=== PATIENT | male | born 1975 | race Caucasian/White ===

== ENCOUNTER 2016-12-23 14:37 | Emergency (ER) | payer MEDICARE, OTHER ==
[2016-12-23] MEDS ORDERED: CARBAMIDE PEROXIDE 6.5% DROPS 15 ML BTL BOTH EARS STA (15:50)
--- NOTE | 2016-12-23 16:01 | ED ---
ENT HPI - General Chief complaint: ENT Stated complaint: Congestion/ throat pain Time Seen by Provider: 12/23/16 15:23 Source: patient, RN notes reviewed Mode of arrival: ambulatory Limitations: no limitations - History of Present Illness Initial comments: This a 41-year-old male presents emergency department for congestion not feeling well. Patient states her last few days that is had some ear pressure, sinus congestion minimal cough. Patient states, aches all over and just generalized feels rundown. He states he did have some abdominal discomfort but no specific abdominal pain. Patient denies any nausea vomiting diarrhea constipation. Patient was feeling go to urgent care though her sugar was close. Patient states that he has a large amount of cerumen and would like his ears cleaned out. Patient has had a history of aspiration pneumonia. Patient denies fever, chills, neck stiffness. - Related Data Home Medications Medication Instructions Recorded Confirmed Atorvastatin [Lipitor] 40 mg PO DAILY 01/11/16 12/23/16 Famotidine [Pepcid] 20 mg PO DAILY 01/11/16 12/23/16 Ipratropium-Albuterol Nebulize 3 ml INHALATION RT-QID 09/12/16 12/23/16 [Duoneb 0.5 mg-3 mg/3 ml Soln] Previous Rx's Medication Instructions Recorded Oseltamivir [Tamiflu] 75 mg PO Q12HR #10 cap 12/23/16 Allergies Allergy/AdvReac Type Severity Reaction Status Date / Time No Known Allergies Allergy Verified 12/23/16 15:46 Review of Systems ROS Statement: Those systems with pertinent positive or pertinent negative responses have been documented in the HPI. ROS Other: All systems not noted in ROS Statement are negative. Past Medical History Past Medical History: Asthma, GERD/Reflux, Hyperlipidemia, Memory Impairment Additional Past Medical History / Comment(s): Down syndrome, chronic feet issues - family believe it is gout, SHARRI but pt unable to tolerate CPAP, History of Any Multi-Drug Resistant Organisms: None Reported Past Surgical History: Ear Surgery Additional Past Surgical History / Comment(s): Tubes in ears, eye sx-family believes due to weak muscles, cyst removed from back Past Anesthesia/Blood Transfusion Reactions: No Reported Reaction Past Psychological History: No Psychological Hx Reported Additional Psychological History / Comment(s): Pt resides with his mother who is his legal gaurdian and warehouse consultant. She helps him with his ADLs and manages his medications. Pt uses a walker or cane if his gout is flared up in his feet. Mother or his sister take him to appts. Sister states he has about a 2 yr old's mentality. Smoking Status: Never smoker Past Alcohol Use History: None Reported Past Drug Use History: None Reported - Past Family History Mother Family Medical History: GERD/Reflux Additional Family Medical History / Comment(s): Vivienne General Exam Limitations: no limitations General appearance: alert, in no apparent distress Head exam: Present: atraumatic, normocephalic, normal inspection Eye exam: Present: normal appearance, PERRL, EOMI. Absent: scleral icterus, conjunctival injection, periorbital swelling ENT exam: Present: normal exam, normal oropharynx, mucous membranes moist. Absent: TM's normal bilaterally (Unable to visualize TM secondary to cerumen impaction), normal external ear exam (cerumen impaction) Neck exam: Present: normal inspection, full ROM. Absent: tenderness, meningismus, lymphadenopathy Respiratory exam: Present: normal lung sounds bilaterally. Absent: respiratory distress, wheezes, rales, rhonchi, stridor Cardiovascular Exam: Present: regular rate, normal rhythm, normal heart sounds. Absent: systolic murmur, diastolic murmur, rubs, gallop, clicks GI/Abdominal exam: Present: soft, normal bowel sounds. Absent: distended, tenderness, guarding, rebound, rigid Skin exam: Present: warm, dry, intact, normal color. Absent: rash Course Vital Signs 12/23/16 12/23/16 14:44 16:09 Temperature 98.8 F Pulse Rate 60 Respiratory 18 16 Rate Blood Pressure 124/69 Medical Decision Making - Medical Decision Making 41-year-old male presented for generalized not feeling well congestion. Patient 's for minute sinus congestion, body aches. Patient says she's had minimal to no cough. Patient chest x-ray show improvement from prior. They state difficult to exclude infiltrate at this time though he has no cough and the room , auscultation is clear. Patient was started on Tamiflu for influenza. - Lab Data Lab Results 12/23/16 12/23/16 Range/Units 16:05 16:05 Influenza Type A RNA Not Detected (Not Detectd) Influenza Type B (PCR) Detected A (Not Detectd) Group A Strep Rapid Negative (Negative) Disposition Clinical Impression: Influenza Disposition: HOME SELF-CARE Condition: Stable Instructions: Influenza (ED) Additional Instructions: Please return to the Emergency Department if symptoms worsen or any other concerns. Prescriptions: Oseltamivir [Tamiflu] 75 mg PO Q12HR #10 cap Time of Disposition: 17:09
--- NOTE | 2016-12-23 16:26 | XR ---
EXAMINATION TYPE: XR chest 2V DATE OF EXAM: 12/23/2016 4:17 PM COMPARISON: 09/14/2016 HISTORY: Cough TECHNIQUE: Frontal and lateral views of the chest are obtained. FINDINGS: Sade Hilar density much improved from prior examination may reflect postinflammatory saucedo es. Developing infiltrate is difficult to exclude however. The cardiac silhouette size is within norm al limits. The osseous structures are intact. IMPRESSION: Sade Hilar density much improved from prior examination may reflect postinflammatory sabina nges. Developing infiltrate is difficult to exclude however.
[2016-12-23 17:18] VITALS: BP 131/65; PULSE 89; RESP 18; TEMP 97.8
== END 2016-12-23 17:17 | disposition home or self-care (01) ==
LOC: EC 14:37
DX: J11.1 Influenza due to unidentified influenza virus with other respiratory manifestations (principal); H57.8 Other specified disorders of eye and adnexa; Q90.9 Down syndrome, unspecified; K21.9 Gastro-esophageal reflux disease without esophagitis; E78.5 Hyperlipidemia, unspecified; H61.20 Impacted cerumen, unspecified ear; Z79.899 Other long term (current) drug therapy
CPT/HCPCS: 71020; 87081; 87430; 87502; 99283

== ENCOUNTER → 2018-09-05 | Outpatient (CLI) | payer MEDICARE, OTHER ==
--- NOTE | 2018-09-07 15:43 | ECHOF ---
Referral Reason:Q90.9 Down syndrome MEASUREMENTS -------- HEIGHT: 157.5 cm WEIGHT: 108.9 kg BP: RVIDd: 2.4 cm (< 3.3) IVSd: 1.1 cm (0.6 - 1.1) LVIDd: 4.3 cm (3.9 - 5.3) LVPWd: 1.0 cm (0.6 - 1.1) IVSs: 1.4 cm LVIDs: 2.8 cm LVPWs: 1.4 cm LAESV Index (A-L): 15.68 ml/m Ao Diam: 3.2 cm (2.0 - 3.7) AV Cusp: 2.0 cm (1.5 - 2.6) LA Diam: 3.5 cm (2.7 - 3.8) MV E Fritz: 1.09 m/s MV DecT: 221 ms MV A Fritz: 0.78 m/s MV E/A Ratio: 1.41 RAP: 5.00 mmHg RVSP: 15.32 mmHg FINDINGS -------- Sinus rhythm. This was a technically adequate study. The left ventricular size is normal. There is borderline concentric left ventricular hypertrophy. Overall left ventricular systolic function is normal with, an EF between 55 - 60 %. The right ventricle is normal in size and function. Normal LA size by volume 22+/-6 ml/m2. The right atrium is normal in size. There is mild aortic valve sclerosis. There is no evidence of aortic regurgitation. There is no e vidence of aortic stenosis. Mild mitral annular calcification present. There is trace to mild mitral regurgitation. Trace tricuspid regurgitation present. Right ventricular systolic pressure is normal at < 35 mmHg. There is no evidence of pulmonary hypertension. The pulmonic valve was not well visualized. The aortic root size is normal. Normal inferior vena cava with normal inspiratory collapse consistent with estimated right atrial pre ssure of 5 mmHg. There is no pericardial effusion. CONCLUSIONS -------- 1. Sinus rhythm. 2. This was a technically adequate study. 3. The left ventricular size is normal. 4. There is borderline concentric left ventricular hypertrophy. 5. Overall left ventricular systolic function is normal with, an EF between 55 - 60 %. 6. Normal LA size by volume 22+/-6 ml/m2. 7. There is mild aortic valve sclerosis. 8. Mild mitral annular calcification present. 9. There is trace to mild mitral regurgitation. 10. Trace tricuspid regurgitation present. 11. Right ventricular systolic pressure is normal at < 35 mmHg. 12. There is no evidence of pulmonary hypertension. 13. The pulmonic valve was not well visualized. 14. The aortic root size is normal. 15. There is no pericardial effusion. SUPERVISOR [employer]MICAL: Jose Guadalupe Anguiano RDCS
== END | disposition home or self-care (01) ==
LOC: RADECHMAIN 15:21
PROVIDERS: ATTEND Internal Medicine
DX: I34.0 Nonrheumatic mitral (valve) insufficiency (principal); I51.7 Cardiomegaly; I35.8 Other nonrheumatic aortic valve disorders; Q90.9 Down syndrome, unspecified
CPT/HCPCS: 93306

== ENCOUNTER 2018-12-09 11:22 | Emergency (ER) | payer MEDICARE, OTHER ==
[2018-12-09] MEDS ORDERED: IPRATROPIUM-ALBUTEROL 3 ML NEB INHALATION STA (11:46)
--- NOTE | 2018-12-09 12:08 | ED ---
General Adult HPI - General Chief complaint: Chest Pain Stated complaint: chest pain Time Seen by Provider: 12/09/18 11:31 Source: patient, RN notes reviewed Mode of arrival: wheelchair Limitations: no limitations - History of Present Illness Initial comments: Patient 43-year-old male presented to the emergency room today with a chief complaint cough congestion over the last 2 days. Patient does admit symptoms started with a sore throat. Patient does admit that he has had increased cough congestion with sputum production this morning that was yellow in color. Patient has a history of Down's and his mother said bedside providing some of this history. She states that he was holding his chest earlier. Patient does admit that it hurts when he coughs. Patient denies any chest pain at rest. Denies any other complaints or symptoms. Patient denies any recent fever, chills , shortness of breath, dysuria or hematuria, constipation or diarrhea, headaches or visual changes, or any other complaints. - Related Data Home Medications Medication Instructions Recorded Confirmed Atorvastatin [Lipitor] 40 mg PO DAILY 01/11/16 12/09/18 Famotidine [Pepcid] 20 mg PO DAILY 01/11/16 12/09/18 Previous Rx's Medication Instructions Recorded Azithromycin [Zithromax Z-pack] 0 mg PO DIRECTED #6 tab 12/09/18 predniSONE 40 mg PO DAILY 5 Days tab 12/09/18 Allergies Allergy/AdvReac Type Severity Reaction Status Date / Time No Known Allergies Allergy Verified 12/09/18 11:58 Review of Systems ROS Statement: Those systems with pertinent positive or pertinent negative responses have been documented in the HPI. ROS Other: All systems not noted in ROS Statement are negative. Past Medical History Past Medical History: Asthma, GERD/Reflux, Hyperlipidemia, Memory Impairment Additional Past Medical History / Comment(s): Down syndrome, chronic feet issues - family believe it is gout, SHARRI but pt unable to tolerate CPAP, History of Any Multi-Drug Resistant Organisms: None Reported Past Surgical History: Ear Surgery Additional Past Surgical History / Comment(s): Tubes in ears, eye sx-family believes due to weak muscles, cyst removed from back Past Anesthesia/Blood Transfusion Reactions: No Reported Reaction Past Psychological History: No Psychological Hx Reported Smoking Status: Never smoker Past Alcohol Use History: None Reported Past Drug Use History: None Reported - Past Family History Mother Family Medical History: GERD/Reflux Additional Family Medical History / Comment(s): Vivienne General Exam - General Exam Comments Initial Comments: General: The patient is awake and alert, in no distress, and does not appear acutely ill. Eye: There is normal conjunctiva bilaterally. No signs of icterus. Ears, nose, mouth and throat: There are moist mucous membranes and no oral lesions. Neck: The neck is supple Cardiovascular: There is a regular rate and rhythm. No murmur, rub or gallop is appreciated. Respiratory: Lungs are clear to auscultation, respirations are non-labored, breath sounds are equal. No wheezes, stridor, rales, or rhonchi. Gastrointestinal: There is no rebound or guarding present. No CVA tenderness. Bowel sounds are unremarkable. Musculoskeletal: Normal ROM, no tenderness. Neurological: A&O x 3. CN II-XII intact, There are no obvious motor or sensory deficits. Coordination appears grossly intact. Speech is normal. Skin: Skin is warm and dry and no rashes or lesions are noted. Psychiatric: Cooperative, appropriate mood & affect, normal judgment. Limitations: no limitations Course Vital Signs 12/09/18 12/09/18 12/09/18 11:25 12:06 12:13 Temperature 98.2 F Pulse Rate 72 72 72 Respiratory 16 Rate Blood Pressure 130/78 O2 Sat by Pulse 91 L Oximetry Medical Decision Making - Medical Decision Making EKG performed at 1221: Shows normal sinus rhythm at 75 bpm. MT interval 148. QRS 98. QT/QTC 338/433. No acute ST changes. Chest x-ray shows cardiac Martha present currently with suspected mild central vascular congestion. Mild interstitial edema is felt present. Correlate for CHF exacerbation. Patchy bibasilar patient favors atelectasis. As read by Dr. pan Patient admits to chest pain when he coughs. Symptoms started with a sore throat has had cough congestion with positive sputum pressure over the last 2 days. Patient has history of Down's syndrome. Labs were obtained. Cardiac enzymes negative. D-dimer negative. Patient's BNP was 19. Patient admits to improvement after breathing treatment. Does have history of asthma. Has inhaler at home. Will be started on steroids, antibiotics cover for bronchitis. Advised following the family doctor over the next 2 days. - Lab Data Result diagrams: 12/09/18 12:15 12/09/18 12:15 Lab Results 12/09/18 12/09/18 12/09/18 Range/Units 12:15 12:15 12:15 WBC 8.2 (3.8-10.6) k/uL RBC 4.94 (4.30-5.90) m/uL Hgb 16.1 (13.0-17.5) gm/dL Hct 49.1 (39.0-53.0) % MCV 99.4 (80.0-100.0) fL MCH 32.6 (25.0-35.0) pg MCHC 32.8 (31.0-37.0) g/dL RDW 14.4 (11.5-15.5) % Plt Count 213 (150-450) k/uL Neutrophils % 68 % Lymphocytes % 23 % Monocytes % 5 % Eosinophils % 1 % Basophils % 1 % Neutrophils # 5.5 (1.3-7.7) k/uL Lymphocytes # 1.9 (1.0-4.8) k/uL Monocytes # 0.4 (0-1.0) k/uL Eosinophils # 0.1 (0-0.7) k/uL Basophils # 0.1 (0-0.2) k/uL Macrocytosis Slight PT 10.2 (9.0-12.0) sec INR 0.9 (<1.2) APTT 24.4 (22.0-30.0) sec D-Dimer 0.35 (<0.60) mg/L FEU Sodium 140 (137-145) mmol/L Potassium 4.6 (3.5-5.1) mmol/L Chloride 105 (98-107) mmol/L Carbon Dioxide 28 (22-30) mmol/L Anion Gap 7 mmol/L BUN 20 (9-20) mg/dL Creatinine 0.62 L (0.66-1.25) mg/dL Est GFR (CKD-EPI)AfAm >90 (>60 ml/min/1.73 sqM) Est GFR (CKD-EPI)NonAf >90 (>60 ml/min/1.73 sqM) Glucose 117 H (74-99) mg/dL Calcium 9.2 (8.4-10.2) mg/dL Total Bilirubin 0.5 (0.2-1.3) mg/dL AST 20 (17-59) U/L ALT 28 (21-72) U/L Alkaline Phosphatase 63 (38-126) U/L Total Creatine Kinase (55-170) U/L CK-MB (CK-2) (0.0-2.4) ng/mL CK-MB (CK-2) Rel Index Troponin I (0.000-0.034) ng/mL NT-Pro-B Natriuret Pep pg/mL Total Protein 7.6 (6.3-8.2) g/dL Albumin 3.9 (3.5-5.0) g/dL Influenza Type A RNA (Not Detectd) Influenza Type B (PCR) (Not Detectd) Group A Strep Rapid (Negative) 12/09/18 12/09/18 12/09/18 Range/Units 12:15 12:15 12:15 WBC (3.8-10.6) k/uL RBC (4.30-5.90) m/uL Hgb (13.0-17.5) gm/dL Hct (39.0-53.0) % MCV (80.0-100.0) fL MCH (25.0-35.0) pg MCHC (31.0-37.0) g/dL RDW (11.5-15.5) % Plt Count (150-450) k/uL Neutrophils % % Lymphocytes % % Monocytes % % Eosinophils % % Basophils % % Neutrophils # (1.3-7.7) k/uL Lymphocytes # (1.0-4.8) k/uL Monocytes # (0-1.0) k/uL Eosinophils # (0-0.7) k/uL Basophils # (0-0.2) k/uL Macrocytosis PT (9.0-12.0) sec INR (<1.2) APTT (22.0-30.0) sec D-Dimer (<0.60) mg/L FEU Sodium (137-145) mmol/L Potassium (3.5-5.1) mmol/L Chloride (98-107) mmol/L Carbon Dioxide (22-30) mmol/L Anion Gap mmol/L BUN (9-20) mg/dL Creatinine (0.66-1.25) mg/dL Est GFR (CKD-EPI)AfAm (>60 ml/min/1.73 sqM) Est GFR (CKD-EPI)NonAf (>60 ml/min/1.73 sqM) Glucose (74-99) mg/dL Calcium (8.4-10.2) mg/dL Total Bilirubin (0.2-1.3) mg/dL AST (17-59) U/L ALT (21-72) U/L Alkaline Phosphatase (38-126) U/L Total Creatine Kinase 34 L (55-170) U/L CK-MB (CK-2) 0.3 (0.0-2.4) ng/mL CK-MB (CK-2) Rel Index 0.9 Troponin I <0.012 (0.000-0.034) ng/mL NT-Pro-B Natriuret Pep pg/mL Total Protein (6.3-8.2) g/dL Albumin (3.5-5.0) g/dL Influenza Type A RNA Not Detected (Not Detectd) Influenza Type B (PCR) Not Detected (Not Detectd) Group A Strep Rapid Negative (Negative) 12/09/18 Range/Units 12:15 WBC (3.8-10.6) k/uL RBC (4.30-5.90) m/uL Hgb (13.0-17.5) gm/dL Hct (39.0-53.0) % MCV (80.0-100.0) fL MCH (25.0-35.0) pg MCHC (31.0-37.0) g/dL RDW (11.5-15.5) % Plt Count (150-450) k/uL Neutrophils % % Lymphocytes % % Monocytes % % Eosinophils % % Basophils % % Neutrophils # (1.3-7.7) k/uL Lymphocytes # (1.0-4.8) k/uL Monocytes # (0-1.0) k/uL Eosinophils # (0-0.7) k/uL Basophils # (0-0.2) k/uL Macrocytosis PT (9.0-12.0) sec INR (<1.2) APTT (22.0-30.0) sec D-Dimer (<0.60) mg/L FEU Sodium (137-145) mmol/L Potassium (3.5-5.1) mmol/L Chloride (98-107) mmol/L Carbon Dioxide (22-30) mmol/L Anion Gap mmol/L BUN (9-20) mg/dL Creatinine (0.66-1.25) mg/dL Est GFR (CKD-EPI)AfAm (>60 ml/min/1.73 sqM) Est GFR (CKD-EPI)NonAf (>60 ml/min/1.73 sqM) Glucose (74-99) mg/dL Calcium (8.4-10.2) mg/dL Total Bilirubin (0.2-1.3) mg/dL AST (17-59) U/L ALT (21-72) U/L Alkaline Phosphatase (38-126) U/L Total Creatine Kinase (55-170) U/L CK-MB (CK-2) (0.0-2.4) ng/mL CK-MB (CK-2) Rel Index Troponin I (0.000-0.034) ng/mL NT-Pro-B Natriuret Pep 19 pg/mL Total Protein (6.3-8.2) g/dL Albumin (3.5-5.0) g/dL Influenza Type A RNA (Not Detectd) Influenza Type B (PCR) (Not Detectd) Group A Strep Rapid (Negative) Disposition Clinical Impression: Acute bronchitis Disposition: HOME SELF-CARE Condition: Good Instructions (If sedation given, give patient instructions): Acute Bronchitis ( ED) Additional Instructions: Please use medication as discussed. Please follow-up with family doctor in the next 2 days of symptoms have not improved. Please return to emergency room if the symptoms increase or worsen or for any other concerns. Prescriptions: Azithromycin [Zithromax Z-pack] 0 mg PO DIRECTED #6 tab predniSONE 40 mg PO DAILY 5 Days tab Is patient prescribed a controlled substance at d/c from ED?: No Referrals: Katelyn Quintanilla MD [Primary Care Provider] - 1-2 days Time of Disposition: 14:10
[2018-12-09 12:47] LABS: Basophils # (A) 0.1 k/uL (0-0.2); Basophils % (A) 1 %; Eosinophils # (A) 0.1 k/uL (0-0.7); Eosinophils % (A) 1 %; HCT 49.1 % (39.0-53.0); HGB 16.1 gm/dL (13.0-17.5); Lymphocytes # (A) 1.9 k/uL (1.0-4.8); Lymphocytes % (A) 23 %; MCH 32.6 pg (25.0-35.0); MCHC 32.8 g/dL (31.0-37.0); MCV 99.4 fL (80.0-100.0); Macrocytosis Slight; Mean Platelet Volume 7.6; Monocytes # (A) 0.4 k/uL (0-1.0); Monocytes % (A) 5 %; Neutrophils # (A) 5.5 k/uL (1.3-7.7); Neutrophils % (A) 68 %; Platelet Count 213 k/uL (150-450); RBC 4.94 m/uL (4.30-5.90); RDW 14.4 % (11.5-15.5); WBC 8.2 k/uL (3.8-10.6)
[2018-12-09 12:57] LABS: ALT 28 U/L (21-72); AST 20 U/L (17-59); Albumin 3.9 g/dL (3.5-5.0); Alkaline Phosphatase 63 U/L (38-126); Anion Gap 7 mmol/L; Blood Urea Nitrogen 20 mg/dL (9-20); Calcium 9.2 mg/dL (8.4-10.2); Carbon Dioxide 28 mmol/L (22-30); Chloride 105 mmol/L (98-107); Glucose 117 mg/dL (74-99); Potassium 4.6 mmol/L (3.5-5.1); Sodium 140 mmol/L (137-145); Total Bilirubin 0.5 mg/dL (0.2-1.3); Total Protein 7.6 g/dL (6.3-8.2)
[2018-12-09 12:58] LABS: D-Dimer 0.35 mg/L FEU (<0.60); INR 0.9 (<1.2); Partial Thromboplastin Time 24.4 sec (22.0-30.0); Prothrombin Time 10.2 sec (9.0-12.0)
--- NOTE | 2018-12-09 13:05 | XR ---
EXAMINATION TYPE: XR chest 2V DATE OF EXAM: 12/09/2018 COMPARISON: CTA chest September 12, 2016. Most recent chest x-ray September 12, 2018 HISTORY: Cough and fever. TECHNIQUE: Frontal and lateral views of the chest are obtained. FINDINGS: The osseous structures are intact. Cardiomegaly is now identified. Suspect mild central vas cular congestion. Bibasilar opacities are now present. No pleural effusion or pneumothorax is seen bi laterally. IMPRESSION: Cardiomegaly present currently with suspected mild central vascular congestion. Mild int erstitial edema is felt present. Correlate for CHF exacerbation. Patchy bibasilar opacity favors atel ectasis.
[2018-12-09 13:20] LABS: Creatine Kinase 34 U/L (55-170)
[2018-12-09 13:33] LABS: Creatine Kinase MB 0.3 ng/mL (0.0-2.4); Troponin I <0.012 ng/mL (0.000-0.034)
[2018-12-09 15:02] VITALS: BP 129/80; PULSE 75; RESP 18; TEMP 98
== END 2018-12-09 15:00 | disposition home or self-care (01) ==
LOC: EC 11:22
DX: J20.9 Acute bronchitis, unspecified (principal); K21.9 Gastro-esophageal reflux disease without esophagitis; E78.5 Hyperlipidemia, unspecified; G47.33 Obstructive sleep apnea (adult) (pediatric); Z79.899 Other long term (current) drug therapy; Z87.09 Personal history of other diseases of the respiratory system
CPT/HCPCS: 36415; 71046; 80053; 82550; 82553; 83880; 84484; 85025; 85379; 85610; 85730; 87081; 87430; 87502; 93005; 94640; 99285

== ENCOUNTER 2019-02-20 20:40 | Emergency (ER) | payer MEDICARE, OTHER ==
[2019-02-20 20:53] VITALS: BP 138/77; PULSE 72; RESP 20; TEMP 98.5
--- NOTE | 2019-02-20 21:38 | XR ---
EXAMINATION TYPE: XR hand complete RT DATE OF EXAM: 02/20/2019 COMPARISON: NONE HISTORY: Pain TECHNIQUE: 3 views FINDINGS: Metacarpals appear intact. I see no fracture nor dislocation. Joint spaces are fairly olga lidia l. There is some spurring at the DIP joints. IMPRESSION: No acute abnormality of the right hand.
[2019-02-20] MEDS ORDERED: ACETAMINOPHEN TAB 325 MG TAB PO STA (21:39)
--- NOTE | 2019-02-20 21:40 | XR ---
EXAMINATION TYPE: XR elbow complete RT DATE OF EXAM: 02/20/2019 COMPARISON: NONE HISTORY: Elbow pain TECHNIQUE: 3 views FINDINGS: On the lateral view there is probably a nondisplaced intra-articular fracture of the radial head. There is probably a 8 mm anterior chip fracture. IMPRESSION: Nondisplaced radial head fracture.
--- NOTE | 2019-02-20 21:43 | XR ---
EXAMINATION TYPE: XR forearm RT DATE OF EXAM: 02/20/2019 COMPARISON: NONE HISTORY: Pain TECHNIQUE: 2 views FINDINGS: Radius and ulna appear intact. I see no fracture. Wrist joint and elbow joint appear intact . IMPRESSION: Negative right forearm exam.
--- NOTE | 2019-02-20 21:45 | XR ---
EXAMINATION TYPE: XR foot complete RT DATE OF EXAM: 02/20/2019 COMPARISON: NONE HISTORY: Foot pain TECHNIQUE: 4 views FINDINGS: There is severe narrowing of the first MP joint space with spurring. Metatarsals are intact . There is small plantar and Achilles calcaneal spurring. I see no fracture. 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 No fracture seen. Calcaneal spurring.
--- NOTE | 2019-02-20 22:33 | ED ---
General Adult HPI - General Chief complaint: Extremity Injury, Upper Stated complaint: Fall, arm pain Time Seen by Provider: 02/20/19 20:58 Source: patient, family, RN notes reviewed, old records reviewed Mode of arrival: ambulatory Limitations: no limitations - History of Present Illness Initial comments: 43-year-old male patient with past mental history of pneumonia presents to ED after sustaining a fall today. Basically he is walking forward, tripped over a rug, fell for catching himself with his right arm. Patient has a trauma to head or neck. Patient denies any loss of consciousness. Patient primary complaint is right elbow pain. Patient has secondary complaint of right foot pain. Patient denies any other complaints. Systemic: Pt denies fatigue, myalgia, fever/chills, rash. Pt denies weakness, night sweats, weight loss. Neuro: Pt denies headache, visual disturbances, syncope or pre-syncope. HEENT: Pt denies ocular discharge or irritation, otalgia, rhinorrhea, pharyngitis or notable lymphadenopathy. Cardiopulmonary: Pt denies chest pain, SOB, heart palpitations, dyspnea on exertion. Abdominal/GI: Pt denies abdominal pain, n/v/d. : Pt denies dysuria, burning w/ urination, frequency/urgency. Denies new onset urinary or bowel incontinence. MSK: Pt denies myalgia, loss of strength or function in extremities. Neuro: Pt denies new onset weakness, paresthesias. - Related Data Home Medications Medication Instructions Recorded Confirmed Atorvastatin [Lipitor] 40 mg PO DAILY 01/11/16 12/09/18 Famotidine [Pepcid] 20 mg PO DAILY 01/11/16 12/09/18 Previous Rx's Medication Instructions Recorded Azithromycin [Zithromax Z-pack] 0 mg PO DIRECTED #6 tab 12/09/18 predniSONE 40 mg PO DAILY 5 Days tab 12/09/18 Allergies Allergy/AdvReac Type Severity Reaction Status Date / Time No Known Allergies Allergy Verified 02/20/19 20:53 Review of Systems ROS Statement: Those systems with pertinent positive or pertinent negative responses have been documented in the HPI. ROS Other: All systems not noted in ROS Statement are negative. Past Medical History Past Medical History: Asthma, GERD/Reflux, Hyperlipidemia, Memory Impairment Additional Past Medical History / Comment(s): Down syndrome, chronic feet issues- family believe it is gout, SHARRI but pt unable to tolerate CPAP, History of Any Multi-Drug Resistant Organisms: None Reported Past Surgical History: Ear Surgery Additional Past Surgical History / Comment(s): Tubes in ears, eye sx-family believes due to weak muscles, cyst removed from back Past Anesthesia/Blood Transfusion Reactions: No Reported Reaction Past Psychological History: No Psychological Hx Reported Smoking Status: Never smoker Past Alcohol Use History: None Reported Past Drug Use History: None Reported - Past Family History Mother Family Medical History: GERD/Reflux Additional Family Medical History / Comment(s): Vivienne General Exam - General Exam Comments Initial Comments: Constitutional: NAD, AOX3, Pt has pleasant affect. HEENT: NC/AT, trachea midline, neck supple, no lymphadenopathy. Posterior pharynx non erythematous, without exudates. External ears appear normal, without discharge. Mucous membranes moist. Eyes PERRLA, EOM intact. There is no scleral icterus. No pallor noted. Cardiopulmonary: RRR, no murmurs, rubs or gallops, no JVD noted. Lungs CTAB in anterior and posterior colon. No peripheral edema. Abdominal exam: Abdomen soft and non-distended. Abdomen non-tender to palpation in all 4 quadrants. Bowel sounds active in LLQ. No hepatosplenomegaly. No ecch ymosis Neuro: CN II-XII intact. No nuchal rigidity. No cervical spinal tenderness. MSK: Right elbow mildly tender to palpation. Radial pulse +2. No forearm wrist or hand tenderness. No humeral tenderness. No other areas of upper extremity tenderness. Right great toe mildly tender to palpation. No other areas of tenderness. No posterior calf tenderness bilaterally, homans sign negative bila terally. Posterior tibialis and radial pulse +2 bilaterally. Sensation intact in upper and lower extremities. Full active ROM in upper and lower extremities, 5/5 stregnth. Limitations: no limitations Course Vital Signs 02/20/19 20:49 Temperature 98.5 F Pulse Rate 72 Respiratory 20 Rate Blood Pressure 138/77 O2 Sat by Pulse 97 Oximetry Medical Decision Making - Medical Decision Making 43-year-old male patient with past mental history of pneumonia presents to ED after sustaining a fall today. Basically he is walking forward, tripped over a rug, fell for catching himself with his right arm. Patient has a trauma to head or neck. Patient denies any loss of consciousness. Patient primary complaint is right elbow pain. Patient has secondary complaint of right foot pain. Patient denies any other complaints. Pt VSS, afebrile. Physical exam displayed: Right elbow mildly tender to palpation. Radial pulse +2. No forearm wrist or hand tenderness. No humeral tenderness. No other areas of upper extremity tenderness. Right great toe mildly tender to palpation. No other areas of tenderness. Further history taking revealed a great toe pain is a chronic complaint and nonacute. Plain film of hand, forearm, presents with acute pathology. Plain film of elbow displayed a nondisplaced vertical fracture and radial head and 8 mm anterior chip fracture. Patient placed in posterior 90 arm splint. Pt placed in sling. Patient to be discharged with follow up with orthopedic surgeon. Patient neurovascularly intact after splint placement. Disposition Clinical Impression: Radial head fracture Disposition: HOME SELF-CARE Condition: Stable Instructions (If sedation given, give patient instructions): Elbow Fracture (ED) Additional Instructions: Patient to adhere to previously discussed treatment plan and will take medication(s) as directed. Patient to follow up with PCP in 1-2 days. Patient to return to ED if symptoms do not improve. Please continue to wear splint. Please wear a sling. Please follow-up with orthopedic consult tomorrow. Return to ER if condition worsens in any way. Is patient prescribed a controlled substance at d/c from ED?: No Referrals: Katelyn Quintanilla MD [Primary Care Provider] - 1-2 days Nick Mariscal DO [Doctor of Osteopathic Medicine] - 1-2 days
== END 2019-02-20 23:21 | disposition home or self-care (01) ==
LOC: EC 20:40
DX: S52.124A Nondisplaced fracture of head of right radius, initial encounter for closed fracture (principal); M79.671 Pain in right foot; K21.9 Gastro-esophageal reflux disease without esophagitis; E78.5 Hyperlipidemia, unspecified; Z79.899 Other long term (current) drug therapy; W01.0XXA Fall on same level from slipping, tripping and stumbling without subsequent striking against object, initial encounter; Y92.009 Unspecified place in unspecified non-institutional (private) residence as the place of occurrence of the external cause
CPT/HCPCS: 29105; 99284

== ENCOUNTER 2021-02-02 09:18 | Emergency (ER) | payer MEDICARE, OTHER ==
[2021-02-02 09:40] VITALS: BP 121/73; PULSE 68; RESP 18; TEMP 97.9
--- NOTE | 2021-02-02 10:51 | ED ---
General Adult HPI - General Chief complaint: Recheck/Abnormal Lab/Rx Stated complaint: Covid exposure Time Seen by Provider: 02/02/21 09:57 Source: patient Mode of arrival: ambulatory Limitations: no limitations - History of Present Illness Initial comments: 45-year-old male presents to the emergency department with a chief complaint of Covid testing. Patient is present with his caregiver for Covid testing. Patient supposedly lives in a household where for other people tested positive. They're only here for Covid testing. Patient has no complaints. - Related Data Home Medications Medication Instructions Recorded Confirmed Atorvastatin [Lipitor] 40 mg PO DAILY 01/11/16 12/09/18 Famotidine [Pepcid] 20 mg PO DAILY 01/11/16 12/09/18 Previous Rx's Medication Instructions Recorded Azithromycin [Zithromax Z-pack (6 0 mg PO DIRECTED #6 tab 12/09/18 tabs)] predniSONE [Deltasone] 40 mg PO DAILY 5 Days tab 12/09/18 Allergies Allergy/AdvReac Type Severity Reaction Status Date / Time No Known Allergies Allergy Verified 02/02/21 09:37 Review of Systems ROS Statement: Those systems with pertinent positive or pertinent negative responses have been documented in the HPI. ROS Other: All systems not noted in ROS Statement are negative. Past Medical History Past Medical History: Asthma, GERD/Reflux, Hyperlipidemia, Memory Impairment Additional Past Medical History / Comment(s): Down syndrome, chronic feet issues- family believe it is gout, SHARRI but pt unable to tolerate CPAP, History of Any Multi-Drug Resistant Organisms: None Reported Past Surgical History: Ear Surgery Additional Past Surgical History / Comment(s): Tubes in ears, eye sx-family believes due to weak muscles, cyst removed from back Past Anesthesia/Blood Transfusion Reactions: No Reported Reaction Past Psychological History: No Psychological Hx Reported Smoking Status: Second hand smoke exposure Past Alcohol Use History: None Reported Past Drug Use History: None Reported - Past Family History Mother Family Medical History: GERD/Reflux Additional Family Medical History / Comment(s): Vivienne General Exam Limitations: no limitations General appearance: alert, in no apparent distress Head exam: Present: atraumatic, normocephalic, normal inspection Eye exam: Present: normal appearance, PERRL, EOMI Pupils: Present: normal accommodation ENT exam: Present: normal exam, normal oropharynx, mucous membranes moist Respiratory exam: Present: normal lung sounds bilaterally. Absent: respiratory distress Cardiovascular Exam: Present: regular rate, normal rhythm, normal heart sounds Extremities exam: Present: normal inspection, full ROM, normal capillary refill. Absent: tenderness Back exam: Present: normal inspection, full ROM. Absent: tenderness Neurological exam: Present: alert, normal gait Psychiatric exam: Present: normal affect, normal mood Skin exam: Present: warm, dry, intact, normal color Course Vital Signs 02/02/21 09:37 Temperature 97.9 F Pulse Rate 68 Respiratory 18 Rate Blood Pressure 121/73 O2 Sat by Pulse 93 L Oximetry Medical Decision Making - Medical Decision Making 45-year-old male presents to the emergency department with a chief complaint of Covid testing. He is Covid negative. No other complaints. Case discussed with physician. - Lab Data Lab Results 02/02/21 Range/Units 10:02 Coronavirus (PCR) Not Detected (Not Detectd) Disposition Clinical Impression: COVID-19 ruled out by laboratory testing Disposition: HOME SELF-CARE Condition: Stable Instructions (If sedation given, give patient instructions): Coronavirus Disease 2019 (COVID-19) Additional Instructions: Please return to the Emergency Department if symptoms worsen or any other concerns. Is patient prescribed a controlled substance at d/c from ED?: No Referrals: Katelyn Quintanilla MD [Primary Care Provider] - 1-2 days Time of Disposition: 11:17
== END 2021-02-02 11:27 | disposition home or self-care (01) ==
LOC: EC 09:18
DX: Z03.818 Encounter for observation for suspected exposure to other biological agents ruled out (principal); E78.5 Hyperlipidemia, unspecified; K21.9 Gastro-esophageal reflux disease without esophagitis; Z79.899 Other long term (current) drug therapy
CPT/HCPCS: 87635; 99283

== ENCOUNTER 2021-10-17 14:35 | Inpatient (IN) | payer MEDICARE, OTHER ==
[2021-10-17] MEDS ORDERED: DEXAMETHASONE SOD PHOSPHATE 10 MG/ML 1 ML VIAL IV STA (15:11)
--- NOTE | 2021-10-17 15:32 | ED ---
General Adult HPI - General Chief complaint: Shortness of Breath Stated complaint: DEANN Time Seen by Provider: 10/17/21 15:03 Source: family, EMS, RN notes reviewed, old records reviewed Mode of arrival: EMS Limitations: altered mental status - History of Present Illness Initial comments: 45-year-old male history of Down syndrome presenting with cough and dyspnea. History is limited, according to EMS the patient was quite hypoxic upon arrival. He was placed on nonrebreather. The patient has history of Down syndrome. He denies chest pain or abdominal pain. According to EMS the family had noted some increased lower extremity swelling. - Related Data Home Medications Medication Instructions Recorded Confirmed Atorvastatin [Lipitor] 40 mg PO DAILY 01/11/16 12/09/18 Famotidine [Pepcid] 20 mg PO DAILY 01/11/16 12/09/18 Previous Rx's Medication Instructions Recorded Azithromycin [Zithromax Z-pack (6 0 mg PO DIRECTED #6 tab 12/09/18 tabs)] predniSONE [Deltasone] 40 mg PO DAILY 5 Days tab 12/09/18 Allergies Allergy/AdvReac Type Severity Reaction Status Date / Time No Known Allergies Allergy Verified 08/14/21 16:52 Review of Systems ROS Statement: Those systems with pertinent positive or pertinent negative responses have been documented in the HPI. ROS Other: All systems not noted in ROS Statement are negative. Past Medical History Past Medical History: Asthma, GERD/Reflux, Hyperlipidemia, Memory Impairment Additional Past Medical History / Comment(s): Down syndrome, chronic feet i ssues- family believe it is gout, SHARRI but pt unable to tolerate CPAP, History of Any Multi-Drug Resistant Organisms: None Reported Past Surgical History: Ear Surgery Additional Past Surgical History / Comment(s): Tubes in ears, eye sx-family believes due to weak muscles, cyst removed from back Past Anesthesia/Blood Transfusion Reactions: No Reported Reaction Past Psychological History: No Psychological Hx Reported Smoking Status: Second hand smoke exposure Past Alcohol Use History: None Reported Past Drug Use History: None Reported - Past Family History Mother Family Medical History: GERD/Reflux Additional Family Medical History / Comment(s): Vivienne General Exam Limitations: altered mental status General appearance: alert, in distress Head exam: Present: atraumatic, normocephalic Eye exam: Present: normal appearance, PERRL ENT exam: Present: mucous membranes dry Neck exam: Present: normal inspection. Absent: tenderness, meningismus Respiratory exam: Present: respiratory distress, decreased breath sounds Cardiovascular Exam: Present: regular rate, normal rhythm GI/Abdominal exam: Present: soft. Absent: distended, tenderness, guarding Extremities exam: Present: normal capillary refill, pedal edema Neurological exam: Present: alert Skin exam: Present: warm, dry, intact Course Vital Signs 10/17/21 10/17/21 10/17/21 14:38 15:08 16:35 Temperature 98.6 F Pulse Rate 90 75 Respiratory 32 H 24 Rate Blood Pressure 150/104 143/81 O2 Sat by Pulse 93 L 91 L 93 L Oximetry 10/17/21 16:49 Temperature Pulse Rate 66 Respiratory 18 Rate Blood Pressure O2 Sat by Pulse 93 L Oximetry EKG Findings - EKG Comments: EKG Findings:: EKG: Normal sinus rhythm, rightward axis, rate of 81, NM interval 158, QRS duration 86, QTC [address] segment elevation Medical Decision Making - Medical Decision Making 45-year-old male history of Down syndrome presenting with dyspnea and hypoxia. Patient has had some upper respiratory symptoms according to his mother over the past several days. Additionally he does appear fluid overloaded chest x-ray shows CHF versus interstitial pneumonia. He also has a history of asthma. Patient's given dose Lasix in the emergency department as well as antibiotics to cover atypical pneumonia. Started on prednisone and inhaled albuterol. He will be admitted for further evaluation treatment. Echo will be obtained. I suspect since predominantly CHF. Dr. Smith is aware. - Lab Data Result diagrams: 10/17/21 Unknown 10/17/21 Unknown Lab Results 10/17/21 10/17/21 10/17/21 Range/Units Unknown Unknown Unknown WBC 6.9 (3.8-10.6) k/uL RBC 5.87 (4.30-5.90) m/uL Hgb 17.1 (13.0-17.5) gm/dL Hct 56.4 H (39.0-53.0) % MCV 96.1 (80.0-100.0) fL MCH 29.2 (25.0-35.0) pg MCHC 30.3 L (31.0-37.0) g/dL RDW 17.6 H (11.5-15.5) % MPV 11.2 Hypochromasia Marked Poikilocytosis Slight Anisocytosis Slight Macrocytosis Slight Sodium 134 L (137-145) mmol/L Potassium (3.5-5.1) mmol/L Chloride 98 (98-107) mmol/L Carbon Dioxide 29 (22-30) mmol/L Anion Gap 7 mmol/L BUN 16 (9-20) mg/dL Creatinine 0.65 L (0.66-1.25) mg/dL Est GFR (CKD-EPI)AfAm >90 (>60 ml/min/1.73 sqM) Est GFR (CKD-EPI)NonAf >90 (>60 ml/min/1.73 sqM) Glucose 101 H (74-99) mg/dL Plasma Lactic Acid David (0.7-2.0) mmol/L Calcium 8.1 L (8.4-10.2) mg/dL Magnesium 2.1 (1.6-2.3) mg/dL Total Bilirubin 1.4 H (0.2-1.3) mg/dL AST 93 H (17-59) U/L ALT 70 H (4-49) U/L Alkaline Phosphatase 126 (38-126) U/L Troponin I (0.000-0.034) ng/mL NT-Pro-B Natriuret Pep pg/mL Total Protein 7.9 (6.3-8.2) g/dL Albumin 3.7 (3.5-5.0) g/dL Coronavirus (PCR) Not Detected (Not Detectd) 10/17/21 10/17/21 10/17/21 Range/Units Unknown Unknown Unknown WBC (3.8-10.6) k/uL RBC (4.30-5.90) m/uL Hgb (13.0-17.5) gm/dL Hct (39.0-53.0) % MCV (80.0-100.0) fL MCH (25.0-35.0) pg MCHC (31.0-37.0) g/dL RDW (11.5-15.5) % MPV Hypochromasia Poikilocytosis Anisocytosis Macrocytosis Sodium (137-145) mmol/L Potassium (3.5-5.1) mmol/L Chloride (98-107) mmol/L Carbon Dioxide (22-30) mmol/L Anion Gap mmol/L BUN (9-20) mg/dL Creatinine (0.66-1.25) mg/dL Est GFR (CKD-EPI)AfAm (>60 ml/min/1.73 sqM) Est GFR (CKD-EPI)NonAf (>60 ml/min/1.73 sqM) Glucose (74-99) mg/dL Plasma Lactic Acid David 1.5 (0.7-2.0) mmol/L Calcium (8.4-10.2) mg/dL Magnesium (1.6-2.3) mg/dL Total Bilirubin (0.2-1.3) mg/dL AST (17-59) U/L ALT (4-49) U/L Alkaline Phosphatase (38-126) U/L Troponin I 0.025 (0.000-0.034) ng/mL NT-Pro-B Natriuret Pep 2470 pg/mL Total Protein (6.3-8.2) g/dL Albumin (3.5-5.0) g/dL Coronavirus (PCR) (Not Detectd) Disposition Clinical Impression: Down syndrome, Pneumonia of both lower lobes, Congestive heart failure Disposition: ADMITTED IP TO THIS [facility] Condition: Stable Is patient prescribed a controlled substance at d/c from ED?: No Referrals: Katelyn Quintanilla MD [Primary Care Provider] - 1-2 days Decision to Admit Reason: Admit from EC Decision Date: 10/17/21 Decision Time: 18:06
[2021-10-17 15:46] LABS: Anisocytosis Slight; Basophils # (A) 0.1 k/uL (0-0.2); Basophils % (A) 1 %; Eosinophils # (A) 0.1 k/uL (0-0.7); Eosinophils % (A) 1 %; HGB 17.1 gm/dL (13.0-17.5); Hypochromasia Marked; Lymphocytes # (A) 1.3 k/uL (1.0-4.8); Lymphocytes % (A) 19 %; MCH 29.2 pg (25.0-35.0); MCHC 30.3 g/dL (31.0-37.0); MCV 96.1 fL (80.0-100.0); Macrocytosis Slight; Mean Platelet Volume 11.2; Monocytes # (A) 0.5 k/uL (0-1.0); Monocytes % (A) 7 %; Neutrophils # (A) 4.8 k/uL (1.3-7.7); Neutrophils % (A) 70 %; Platelet Count 145 k/uL (150-450); Poikilocytosis Slight; RBC 5.87 m/uL (4.30-5.90); RDW 17.6 % (11.5-15.5); WBC 6.9 k/uL (3.8-10.6)
--- NOTE | 2021-10-17 15:53 | XR ---
EXAMINATION TYPE: XR chest 1V portable DATE OF EXAM: 10/17/2021 COMPARISON: 05/24/2021 HISTORY: Shortness of breath TECHNIQUE: Single frontal view of the chest is obtained. FINDINGS: There is a diffuse interstitial pattern with cardiomegaly. Underlying COPD may be present. No pneumothorax. Technique limits assessment of the lung bases. Suspect subsegmental areas of consol idation. IMPRESSION: Correlate for bilateral interstitial pneumonia with basilar infiltrates. Otherwise consi chantel CHF.
[2021-10-17 15:59] LABS: ALT 70 U/L (4-49); AST 93 U/L (17-59); African American GFR (CKD) >90 (>60 ml/min/1.73 sqM); Albumin 3.7 g/dL (3.5-5.0); Alkaline Phosphatase 126 U/L (38-126); Anion Gap 7 mmol/L; Blood Urea Nitrogen 16 mg/dL (9-20); Calcium 8.1 mg/dL (8.4-10.2); Carbon Dioxide 29 mmol/L (22-30); Chloride 98 mmol/L (98-107); Glucose 101 mg/dL (74-99); Magnesium 2.1 mg/dL (1.6-2.3); Non-African American GFR(CKD) >90 (>60 ml/min/1.73 sqM); Sodium 134 mmol/L (137-145); Total Bilirubin 1.4 mg/dL (0.2-1.3); Total Protein 7.9 g/dL (6.3-8.2)
[2021-10-17] MEDS ORDERED: FUROSEMIDE 10 MG/ML 4 ML VIAL IV STA (16:14)
[2021-10-17 16:43] LABS: HCT 56.4 % (39.0-53.0)
[2021-10-17] MEDS ORDERED: AZITHROMYCIN 500 MG in SODIUM CHLORIDE 0.9% 250 ML IVPB STA (18:02)
[2021-10-17] MEDS ORDERED: cefTRIAXone IN SWFI 1,000 MG/10 ML SYRINGE IVP STA (18:02)
[2021-10-17] MEDS ORDERED: NALOXONE 0.4 MG/ML 1 ML VIAL IV PRN (18:03)
[2021-10-17] MEDS ORDERED: ASPIRIN 325 MG TAB PO STA (18:03)
[2021-10-17 19:19] LABS: Partial Thromboplastin Time 24.3 sec (22.0-30.0); Prothrombin Time 11.4 sec (9.0-12.0)
[2021-10-17 19:25] LABS: INR 1.1 (<1.2)
[2021-10-17] MEDS: FUROSEMIDE 10 MG/ML 4 ML VIAL IV SCH (20:56)
[2021-10-17] MEDS: IPRATROPIUM-ALBUTEROL 3 ML NEB INHALATION SCH (22:04)
[2021-10-18] MEDS: IPRATROPIUM-ALBUTEROL 3 ML NEB INHALATION SCH ×4 (07:13→19:12)
[2021-10-18] MEDS ORDERED: predniSONE 50 MG TAB PO SCH (09:00)
[2021-10-18] MEDS: FUROSEMIDE 10 MG/ML 4 ML VIAL IV SCH ×2 (11:34→19:59)
--- NOTE | 2021-10-18 12:35 | P.CNPUL ---
History of Present Illness Consult date: 10/18/21 Requesting physician: Basim Smith Reason for consult: abnormal CXR/CT Chief complaint: Shortness of breath, lower extremity edema History of present illness: This is a pleasant 45-year-old gentleman with a known history of Down syndrome, hyperlipidemia, obstructive sleep apnea but intolerant to CPAP, gastroesophageal reflux disease. He has a poor historian. He was brought into the emergency room yesterday after his family found him to be short of breath with cough and swelling of the lower extremities. He is quite hypoxic on arrival by EMS and was placed on nonrebreather mass. His x-ray reveals evidence of cardiomegaly with diffuse interstitial edema and basilar infiltrates. EKG reveals normal sinus rhythm without acute ST or T wave abnormalities. White count 6.9. Hemoglobin 17.1. Sodium 134. Creatinine 0.65. Lactic acid 1.5. AST 93. ALT 70. ProBNP 2470. Troponin 0.025. Chavira virus by PCR not detected. He was initiated on IV diuretics, antibiotics, bronchodilators and steroids. He is seen today in consultation in the emergency department. He is currently sitting up in a stretcher. Awake and alert in no acute distress. He is requiring 15 L high flow nasal cannula to maintain O2 saturation in the 90s. He's been afebrile. Hemodynamically stable. So far he is diuresed 1300 ML's. Weight 127 kg. Review of Systems ROS unobtainable: due to mental status Past Medical History Past Medical History: Asthma, GERD/Reflux, Hyperlipidemia, Memory Impairment Additional Past Medical History / Comment(s): Down syndrome/IQ of about 74, chronic feet issue d/t gout, SHARRI but pt unable to tolerate CPAP, History of Any Multi-Drug Resistant Organisms: None Reported Past Surgical History: Ear Surgery Additional Past Surgical History / Comment(s): Tubes in ears, eye sx-family believes due to weak muscles, cyst removed from back Past Anesthesia/Blood Transfusion Reactions: No Reported Reaction Smoking Status: Second hand smoke exposure - Past Family History Mother Family Medical History: GERD/Reflux Additional Family Medical History / Comment(s): Vivienne Medications and Allergies Home Medications Medication Instructions Recorded Confirmed Type Atorvastatin [Lipitor] 40 mg PO DAILY 01/11/16 10/17/21 History Famotidine [Pepcid] 20 mg PO DAILY 01/11/16 10/17/21 History Allergies Allergy/AdvReac Type Severity Reaction Status Date / Time No Known Allergies Allergy Verified 10/17/21 18:14 Physical Exam Vitals: Vital Signs Temp Pulse Pulse Resp BP BP Pulse Ox 10/18/21 11:25 80 18 128/87 95 10/18/21 11:22 73 10/18/21 11:14 73 10/18/21 07:24 78 10/18/21 07:13 76 90 L 10/18/21 01:47 92 L 10/18/21 01:46 98 F 74 20 139/73 85 L 10/17/21 22:21 78 93 L 10/17/21 22:09 80 10/17/21 20:00 99.2 F 85 18 152/85 90 L 10/17/21 16:49 66 18 93 L 10/17/21 16:35 75 24 143/81 93 L 10/17/21 15:08 91 L 10/17/21 14:38 98.6 F 90 32 H 150/104 93 L Intake and Output 10/17/21 10/18/21 10/18/21 22:59 06:59 14:59 Intake Total 2500 Output Total 1300 3350 Balance -1300 -850 Intake: Oral 2500 Output: Urine 1300 3350 Other: Voiding Method Urinal Weight 126.9 kg GENERAL EXAM: Alert, obese, 45-year-old gentleman, features of Down syndrome, on 15 L high flow nasal cannula, fairly comfortable in no apparent distress. HEAD: Normocephalic. EYES: Normal reaction of pupils, equal size. NOSE: Clear with pink turbinates. THROAT: No erythema or exudates. NECK: No masses, no JVD. CHEST: No chest wall deformity. LUNGS: Equal air entry with crackles in the bilateral bases CVS: S1 and S2 normal with no audible murmur, regular rhythm. ABDOMEN: No hepatosplenomegaly, normal bowel sounds, no guarding or rigidity. SPINE: No scoliosis or deformity SKIN: No rashes CENTRAL NERVOUS SYSTEM: No focal deficits, tone is normal in all 4 extremities. EXTREMITIES: There is 1+ peripheral edema. No clubbing, no cyanosis. Peripheral pulses are intact. Results - Laboratory Findings CBC and BMP: 10/17/21 Unknown 10/17/21 Unknown PT/INR, D-dimer PT 11.4 sec (9.0-12.0) 10/17/21 18:44 INR 1.1 (<1.2) 10/17/21 18:44 Abnormal lab findings: Abnormal Labs 10/17/21 10/17/21 Unknown Unknown Hct 56.4 H MCHC 30.3 L RDW 17.6 H Plt Count 145 L Sodium 134 L Creatinine 0.65 L Glucose 101 H Calcium 8.1 L Total Bilirubin 1.4 H AST 93 H ALT 70 H - Diagnostic Findings Chest x-ray: image reviewed Assessment and Plan Assessment: 1 Acute hypoxemic respiratory failure secondary to fluid volume overload, suspect diastolic congestive heart failure. CoVID screen negative. 2 History of Down syndrome 3 History of hyperlipidemia 4 History of gastroesophageal reflux disease 5 Obstructive sleep apnea, intolerant to CPAP 6 Obesity/hypoventilation syndrome, ABGs pending Plan: The patient was seen and evaluated in the emergency department Chest x-ray and labs reviewed Discontinue antibiotics and steroids Continue Lasix 40 mg IV every 12 hours Obtain echocardiogram Obtain pro-calcitonin Insert indwelling Bose catheter Check arterial blood gases Aspiration precautions Titrate the FiO2 as tolerated We will continue to follow and make further recommendations based on his clinical status I, the cosigning physician, performed a history & physical examination of the patient. Lungs sounds with bibasilar crackles. Maintaining O2 saturations in the 90s on 15 L high flow nasal cannula. I discussed the assessment and plan of care with my nurse practitioner, Capri Hillman. I attest to the above note as dictated by her. Time with Patient: Greater than 30
--- NOTE | 2021-10-18 12:35 | P.HPIM ---
History of Present Illness -year-old pleasant male with history of Down syndrome given with cough or dyspnea without any fever chills doesn't have any leukocytosis. Patient is presently on 15 L of oxygen Covid 19 is negative. Patient does have pitting pedal edema bilateral lower expertise I am unable to appreciate JVD patient has elevated BNP around 2500. Patient had a chest x-ray which showed showed some possibility of for pulmonary edema pulmonary venous congestion. REVIEW OF SYSTEMS: CONSTITUTIONAL: No fever, no malaise, no fatigue. HEENT: No recent visual problems or hearing problems. Denied any sore throat. CARDIOVASCULAR: No chest pain, orthopnea, PND, no palpitations, no syncope. PULMONARY: No shortness of breath, no cough, no hemoptysis. GASTROINTESTINAL: No diarrhea, no nausea, no vomiting, no abdominal pain. NEUROLOGICAL: No headaches, no weakness, no numbness. HEMATOLOGICAL: Denies any bleeding or petechiae. GENITOURINARY: Denies any burning micturition, frequency, or urgency. MUSCULOSKELETAL/RHEUMATOLOGICAL: Denies any joint pain, swelling, or any muscle pain. ENDOCRINE: Denies any polyuria or polydipsia. The rest of the 14-point review of systems is negative. PHYSICAL EXAMINATION: GENERAL: The patient is alert and oriented x2 is his baseline, not in any acute distress. Well developed, well nourished. HEENT: Pupils are round and equally reacting to light. EOMI. No scleral icterus. No conjunctival pallor. Normocephalic, atraumatic. No pharyngeal erythema. No thyromegaly. CARDIOVASCULAR: S1 and S2 present. No murmurs, rubs, or gallops. PULMONARY: Chest is clear to auscultation, no wheezing or crackles. ABDOMEN: Soft, nontender, nondistended, normoactive bowel sounds. No palpable organomegaly. MUSCULOSKELETAL: No joint swelling or deformity. EXTREMITIES: No cyanosis, clubbing, or pedal edema. NEUROLOGICAL: Gross neurological examination did not reveal any focal deficits. SKIN: No rashes. Assessment and plan -New-onset the congestive heart failure ejection fraction is not known echo will be obtained patient will be continued on IV Lasix -Down syndrome and supportive care -Gastroesophageal reflux disease DVT prophylaxis: Lovenox Past Medical History Past Medical History: Asthma, GERD/Reflux, Hyperlipidemia, Memory Impairment Additional Past Medical History / Comment(s): Down syndrome/IQ of about 74, chronic feet issue d/t gout, SHARRI but pt unable to tolerate CPAP, History of Any Multi-Drug Resistant Organisms: None Reported Past Surgical History: Ear Surgery Additional Past Surgical History / Comment(s): Tubes in ears, eye sx-family b elieves due to weak muscles, cyst removed from back Past Anesthesia/Blood Transfusion Reactions: No Reported Reaction Smoking Status: Second hand smoke exposure - Past Family History Mother Family Medical History: GERD/Reflux Additional Family Medical History / Comment(s): Vivienne Medications and Allergies Home Medications Medication Instructions Recorded Confirmed Type Atorvastatin [Lipitor] 40 mg PO DAILY 01/11/16 10/17/21 History Famotidine [Pepcid] 20 mg PO DAILY 01/11/16 10/17/21 History Allergies Allergy/AdvReac Type Severity Reaction Status Date / Time No Known Allergies Allergy Verified 10/17/21 18:14 Physical Exam Vitals: Vital Signs Temp Pulse Pulse Resp BP BP Pulse Ox 10/18/21 11:25 80 18 128/87 95 10/18/21 11:22 73 10/18/21 11:14 73 10/18/21 07:24 78 10/18/21 07:13 76 90 L 10/18/21 01:47 92 L 10/18/21 01:46 98 F 74 20 139/73 85 L 10/17/21 22:21 78 93 L 10/17/21 22:09 80 10/17/21 20:00 99.2 F 85 18 152/85 90 L 10/17/21 16:49 66 18 93 L 10/17/21 16:35 75 24 143/81 93 L 10/17/21 15:08 91 L 10/17/21 14:38 98.6 F 90 32 H 150/104 93 L Intake and Output 10/17/21 10/18/21 10/18/21 22:59 06:59 14:59 Intake Total 2500 Output Total 1300 3350 Balance -1300 -850 Intake: Oral 2500 Output: Urine 1300 3350 Other: Voiding Method Urinal Weight 126.9 kg Results CBC & Chem 7: 10/17/21 Unknown 10/17/21 Unknown Labs: Abnormal Lab Results - Last 24 Hours (Table) 10/17/21 10/17/21 Range/Units Unknown Unknown Hct 56.4 H (39.0-53.0) % MCHC 30.3 L (31.0-37.0) g/dL RDW 17.6 H (11.5-15.5) % Plt Count 145 L (150-450) k/uL Sodium 134 L (137-145) mmol/L Creatinine 0.65 L (0.66-1.25) mg/dL Glucose 101 H (74-99) mg/dL Calcium 8.1 L (8.4-10.2) mg/dL Total Bilirubin 1.4 H (0.2-1.3) mg/dL AST 93 H (17-59) U/L ALT 70 H (4-49) U/L Thrombosis Risk Factor Assmnt - Choose All That Apply Any of the Below Risk Factors Present?: Yes Each Factor Represents 1 point: Age 41-60 years, Heart failure (<1month), Obesity (BMI >25) Other Risk Factors: No Other congenital or acquired thrombophilia - If yes, enter type in comment: No Thrombosis Risk Factor Assessment Total Risk Factor Score: 3 Thrombosis Risk Factor Assessment Level: Moderate Risk
[2021-10-18 12:43] LABS: ABG Base Excess 18.1 mmol/L; ABG Oxygen Saturation 86.6 % (94-97); ABG PH 7.37 (7.35-7.45); ABG TCO2 46 mmol/L (19-24); Allen Test Performed? Yes
[2021-10-18 12:50] LABS: ABG HCO3 44 mmol/L (21-25); ABG PCO2 76 mmHg (35-45); ABG PO2 54 mmHg (83-108)
--- NOTE | 2021-10-18 16:46 | P.CRDCN ---
History of Present Illness Consult date: 10/18/21 Chief complaint: Shortness of breath and lower extremities edema History of present illness: This is a 45-year-old gentleman who requested to see for further evaluation of heart failure. The patient does have Down syndrome and he is a poor historian and the history was taken from the chart including the emergency room department note. The patient doesn't have any with him at the bedside. He was seen by our service back in 2018 for further evaluation of heart failure and at that point he underwent an echocardiogram and that revealed normal left ventricular systolic function without significant valvular abnormalities. This time he was brought again to the emergency department with increasing shortness of breath as well as increased bilateral lower extent his edema. Apparently no indication that he was experiencing any symptoms of chest pain or chest discomfort. He was found to be hypoxic according to the EMS. The EKG showed sinus rhythm with diffuse nonspecific ST and T wave abnormalities and right axis deviation. His NT proBNP came in to be at 2470. The troponin was 0.025. The chest x-ray showed findings consistent was possible bilateral pneumonia with underlying heart failure. The patient subsequently was admitted to the hospital and he was started on Lasix IV. Pulmonary/critical care team is on the case. When he was seen this afternoon at bedside he was in mild respiratory distress. He is alert but he is lethargic. He was on high flow nasal cannula with a saturation in the 90s. Past Medical History Past Medical History: Asthma, GERD/Reflux, Hyperlipidemia, Memory Impairment Additional Past Medical History / Comment(s): Down syndrome/IQ of about 74, chronic feet issue d/t gout, SHARRI but pt unable to tolerate CPAP, History of Any Multi-Drug Resistant Organisms: None Reported Past Surgical History: Ear Surgery Additional Past Surgical History / Comment(s): Tubes in ears, eye sx-family believes due to weak muscles, cyst removed from back Past Anesthesia/Blood Transfusion Reactions: No Reported Reaction Smoking Status: Second hand smoke exposure - Past Family History Mother Family Medical History: GERD/Reflux Additional Family Medical History / Comment(s): Vivienne Medications and Allergies Home Medications Medication Instructions Recorded Confirmed Type Atorvastatin [Lipitor] 40 mg PO DAILY 01/11/16 10/17/21 History Famotidine [Pepcid] 20 mg PO DAILY 01/11/16 10/17/21 History Allergies Allergy/AdvReac Type Severity Reaction Status Date / Time No Known Allergies Allergy Verified 10/17/21 18:14 Physical Exam Vitals: Vital Signs Temp Pulse Pulse Resp BP BP Pulse Ox 10/18/21 16:07 72 10/18/21 15:52 76 10/18/21 13:48 97.5 F L 77 18 102/56 87 L 10/18/21 12:36 18 10/18/21 11:25 80 18 128/87 95 10/18/21 11:22 73 10/18/21 11:14 73 10/18/21 07:24 78 10/18/21 07:13 76 90 L 10/18/21 01:47 92 L 10/18/21 01:46 98 F 74 20 139/73 85 L 10/17/21 22:21 78 93 L 10/17/21 22:09 80 10/17/21 20:00 99.2 F 85 18 152/85 90 L 10/17/21 16:49 66 18 93 L Intake and Output 10/18/21 10/18/21 10/18/21 06:59 14:59 22:59 Intake Total 2500 Output Total 3350 Balance -850 Intake: Oral 2500 Output: Urine 3350 Other: Voiding Method Urinal Weight 126.9 kg - Constitutional General appearance: mild distress - Respiratory Respiratory: bilateral: diminished - Cardiovascular Rhythm: regular Results 10/17/21 Unknown 10/17/21 Unknown Coagulation 10/17/21 Range/Units 18:44 PT 11.4 (9.0-12.0) sec APTT 24.3 (22.0-30.0) sec CBC 10/17/21 Range/Units Unknown WBC 6.9 (3.8-10.6) k/uL RBC 5.87 (4.30-5.90) m/uL Hgb 17.1 (13.0-17.5) gm/dL Hct 56.4 H (39.0-53.0) % Plt Count 145 L (150-450) k/uL Current Medications Generic Name Dose Route Start Last Admin Trade Name Freq PRN Reason Stop Dose Admin Acetaminophen 650 mg 10/17/21 18:03 Acetaminophen Tab 325 Mg Tab PO Q6HR PRN Mild Pain or Fever > 100.5 Albuterol/Ipratropium 3 ml 10/17/21 20:00 10/18/21 15:49 Ipratropium-Albuterol 3 Ml Neb INHALATION 3 ml RT-QID BLAKE Administration Atorvastatin Calcium 40 mg 10/19/21 09:00 Atorvastatin 40 Mg Tab PO DAILY BLAKE Famotidine 20 mg 10/19/21 09:00 Famotidine 20 Mg Tab PO DAILY BLAKE Furosemide 40 mg 10/17/21 21:00 10/18/21 11:34 Furosemide 10 Mg/Ml 4 Ml Vial IV Not Given Q12HR BLAKE Naloxone HCl 0.2 mg 10/17/21 18:03 Naloxone 0.4 Mg/Ml 1 Ml Vial IV Q2M PRN Opioid Reversal Intake and Output 10/18/21 10/18/21 10/18/21 06:59 14:59 22:59 Intake Total 2500 Output Total 3350 Balance -850 Intake: Oral 2500 Output: Urine 3350 Other: Voiding Method Urinal Weight 126.9 kg Patient Weight 10/19/21 06:59 Weight 126.9 kg 10/17/21 Unknown 10/17/21 Unknown Assessment and Plan Assessment: Assessment #1 acute hypoxic respiratory failure #2 possible underlying pneumonia #3 heart failure exacerbation. Previous echo showed normal ejection fraction. We'll repeat the echo at this time because the previous echo was from 2018. The patient does have evidence of right and left heart failure #4 history of Down syndrome #5 multiple comorbid conditions including sleep apnea Plan #1 the patient currently is on Lasix IV #2 continue monitor the kidney function as well as electrolytes #3 the chest x-ray was reviewed #4 follow-up with the patient #5 follow-up on the echo cardiac
--- NOTE | 2021-10-18 17:48 | ECHOF ---
Referral Reason:chf MEASUREMENTS -------- HEIGHT: 162.6 cm WEIGHT: 131.1 kg BP: IVSd: 0.7 cm (0.6 - 1.1) LVIDd: 4.4 cm (3.9 - 5.3) LVPWd: 1.4 cm (0.6 - 1.1) IVSs: 1.2 cm LVIDs: 4.1 cm LVPWs: 1.6 cm Ao Diam: 3.1 cm (2.0 - 3.7) AV Cusp: 1.7 cm (1.5 - 2.6) LA Diam: 4.9 cm (2.7 - 3.8) MV EXCURSION: 14.317 mm (> 18.000) MV EF SLOPE: 26 mm/s (70 - 150) EPSS: 1.1 cm FINDINGS -------- Sinus rhythm. Morbid Obesity This was a techncally difficult study with suboptimal views, , Lumason utilized for enhancement of im ages. The left ventricular size is normal. Overall left ventricular systolic function is low-normal with, an EF between 50 - 55 %. The RV was not well visualized. The left atrium was not well visualized. The right atrium was not well visualized. The aortic valve was not well visualized. The mitral valve was not well visualized. The tricuspid valve was not well visualized. The pulmonic valve was not well visualized. Echo free space represents a pericardial fat pad. CONCLUSIONS -------- 1. Morbid Obesity 2. This was a techncally difficult study with suboptimal views, , Lumason utilized for enhancement of images. 3. The left ventricular size is normal. 4. Overall left ventricular systolic function is low-normal with, an EF between 50 - 55 %. 5. The RV was not well visualized. 6. The left atrium was not well visualized. 7. The right atrium was not well visualized. 8. The aortic valve was not well visualized. 9. The mitral valve was not well visualized. 10. The tricuspid valve was not well visualized. 11. The pulmonic valve was not well visualized. 12. Echo free space represents a pericardial fat pad. WATCH CRYSTAL MOLDER: Selena Cedeno RDCS
[2021-10-19] MEDS ORDERED: FUROSEMIDE 10 MG/ML 4 ML VIAL IV STA (03:02)
[2021-10-19] MEDS: FUROSEMIDE 10 MG/ML 4 ML VIAL IV SCH ×2 (07:27→21:18)
[2021-10-19 07:34] LABS: Glucose,Whole Blood 131 mg/dL (75-99)
--- NOTE | 2021-10-19 08:10 | P.PN ---
Progress Note - Text Progress Note Date: 10/19/21 A-team was called for low sats in the 70s. Patient is here for congestive heart failure exacerbation. He is currently being diuresed with Lasix IV. Since last night his oxygen saturations have been dropping. Rest of the vitals are okay. He will be given additional iv lasix and will be started on bipap. Exam revealed some wheezing, i will order duoneb's. Discussed with respiratory. Time for critical care 35 min
[2021-10-19] MEDS: IPRATROPIUM-ALBUTEROL 3 ML NEB INHALATION SCH ×8 (08:47→19:32)
--- NOTE | 2021-10-19 08:59 | XR ---
EXAMINATION TYPE: XR chest 1V portable DATE OF EXAM: 10/19/2021 COMPARISON: 10/17/2021 HISTORY: Shortness of breath TECHNIQUE: Single frontal view of the chest is obtained. FINDINGS: Bilateral infiltrates and pleural effusion. Heart is enlarged. No pneumothorax. Osseous st ructures stable. IMPRESSION: Stable bilateral infiltrate and pleural effusion correlate for CHF versus pneumonia
[2021-10-19] MEDS: ACETAMINOPHEN TAB 325 MG TAB PO PRN ×2 (09:06→21:18)
[2021-10-19] MEDS: ATORVASTATIN 40 MG TAB PO SCH (09:07)
[2021-10-19] MEDS: FAMOTIDINE 20 MG TAB PO SCH (09:07)
--- NOTE | 2021-10-19 10:52 | P.PN ---
Subjective -year-old pleasant male with history of Down syndrome given with cough or dyspnea without any fever chills doesn't have any leukocytosis. Patient is presently on 15 L of oxygen Covid 19 is negative. Patient does have pitting pedal edema bilateral lower expertise I am unable to appreciate JVD patient has elevated BNP around 2500. Patient had a chest x-ray which showed showed some possibility of for pulmonary edema pulmonary venous congestion. 10/19/2021 Patient is on BiPAP patient went into respiratory distress patient is found to have related pCO2 patient probably has obesity hypoventilation syndrome as well. Patient is single and crackles bilaterally. Review of systems: Unable to obtain due to his clinical condition All inpatient medications were reviewed and appropriate changes in these medications as dictated in the interval history and assessment and plan. PHYSICAL EXAMINATION: GENERAL: The patient is alert and oriented x2 is his baseline, not in any acute distress. Well developed, well nourished. HEENT: Pupils are round and equally reacting to light. EOMI. No scleral icterus. No conjunctival pallor. Normocephalic, atraumatic. No pharyngeal erythema. No thyromegaly. CARDIOVASCULAR: S1 and S2 present. No murmurs, rubs, or gallops. PULMONARY: Chest is clear to auscultation, no wheezing or crackles. ABDOMEN: Soft, nontender, nondistended, normoactive bowel sounds. No palpable organomegaly. MUSCULOSKELETAL: No joint swelling or deformity. EXTREMITIES: No cyanosis, clubbing, or pedal edema. NEUROLOGICAL: Gross neurological examination did not reveal any focal deficits. SKIN: No rashes. Assessment and plan Acute hypoxic and hypercapnic respiratory failure secondary to congestive heart failure exacerbation and the obesity hypoventilation syndrome respectively patient is on BiPAP support at this time continue with diuresis patient has a Bose catheter presently -New-onset the congestive heart failure is to have diastolic dysfunction had a normal ejection fraction. -Obesity hypoventilation syndrome -Down syndrome and supportive care -Gastroesophageal reflux disease DVT prophylaxis: Lovenox Objective - Vital Signs Vital signs: Vital Signs Temp 98.5 F 10/19/21 07:40 Pulse 77 10/19/21 09:00 Resp 18 10/19/21 07:40 BP 148/73 10/19/21 07:40 Pulse Ox 76 L 10/19/21 07:40 Intake & Output 10/18/21 10/19/21 10/19/21 18:59 06:59 18:59 Intake Total 750 Output Total 400 5650 Balance -400 -4900 Weight 126.9 kg Intake: Oral 750 Output: Urine 400 5650 Other: Voiding Method Urinal # Voids 1 - Labs CBC & Chem 7: 10/17/21 Unknown 10/17/21 Unknown Labs: Abnormal Lab Results - Last 24 Hours (Table) 10/18/21 10/19/21 Range/Units 12:40 07:23 ABG pCO2 76 H* (35-45) mmHg ABG pO2 54 L* (83-108) mmHg ABG HCO3 44 H* (21-25) mmol/L ABG Total CO2 46 H (19-24) mmol/L ABG O2 Saturation 86.6 L (94-97) % POC Glucose (mg/dL) 131 H (75-99) mg/dL
[2021-10-19 11:00] LABS: African American GFR (CKD) 128.2 (60.0-200.0); Anion Gap 10.2 mmol/L (10.00-18.00); BUN/Creat Ratio 20.22 Ratio (12.00-20.00); Blood Urea Nitrogen 14.7 mg/dL (9.0-27.0); Calcium 7.8 mg/dL (8.7-10.3); Carbon Dioxide 39.1 mmol/L (20.0-27.5); Non-African American GFR(CKD) 110.7 (60.0-200.0); Potassium 4.3 mmol/L (3.5-5.5)
--- NOTE | 2021-10-19 11:02 | P.PN ---
Subjective Progress Note Date: 10/19/21 Principal diagnosis: Heart failure The patient is a 45-year-old gentleman with Down syndrome was admitted to the hospital with acute hypoxic respiratory failure with underlying pneumonia as well as fluid overload. He was seen this morning. Currently he is on BiPAP. Hemodynamically he remains a stable but he has been diuresing very well on the current dose of Lasix IV. Renal function continues to be stable. Pulmonary/critical-care team on the case. Previous echo reported an ejection fraction within normal limits. At this point I would advise continue the current dose of Lasix IV. On examination he continues to be fluid overload with evidence of right and left heart failure Objective - Vital Signs Vital signs: Vital Signs Temp 98.5 F 10/19/21 07:40 Pulse 77 10/19/21 09:00 Resp 18 10/19/21 07:40 BP 148/73 10/19/21 07:40 Pulse Ox 76 L 10/19/21 07:40 Intake & Output 10/18/21 10/19/21 10/19/21 18:59 06:59 18:59 Intake Total 750 Output Total 400 5650 Balance -400 -4900 Weight 126.9 kg Intake: Oral 750 Output: Urine 400 5650 Other: Voiding Method Urinal # Voids 1 - Constitutional General appearance: Present: no acute distress - Respiratory Respiratory: bilateral: diminished - Cardiovascular Rhythm: regular - Labs CBC & Chem 7: 10/17/21 Unknown 10/19/21 04:47 Labs: Abnormal Lab Results - Last 24 Hours (Table) 10/18/21 10/19/21 10/19/21 Range/Units 12:40 04:47 07:23 ABG pCO2 76 H* (35-45) mmHg ABG pO2 54 L* (83-108) mmHg ABG HCO3 44 H* (21-25) mmol/L ABG Total CO2 46 H (19-24) mmol/L ABG O2 Saturation 86.6 L (94-97) % Chloride 94 L (96-109) mmol/L Carbon Dioxide 39.1 H (20.0-27.5) mmol/L BUN/Creatinine Ratio 20.22 H (12.00-20.00) Ratio Glucose 123 H (70-110) mg/dL POC Glucose (mg/dL) 131 H (75-99) mg/dL Calcium 7.8 L (8.7-10.3) mg/dL Assessment and Plan Assessment: Assessment #1 acute hypoxic respiratory failure #2 possible underlying pneumonia #3 heart failure exacerbation. Previous echo showed normal ejection fraction. We'll repeat the echo at this time because the previous echo was from 2018. The patient does have evidence of right and left heart failure #4 history of Down syndrome #5 multiple comorbid conditions including sleep apnea Plan #1 the patient currently is on Lasix IV #2 continue monitor the kidney function as well as electrolytes #3 the chest x-ray was reviewed and continues to show evidence of heart failure #4 follow-up with the patient
--- NOTE | 2021-10-19 11:31 | P.PN ---
Subjective Progress Note Date: 10/19/21 This is a pleasant 45-year-old gentleman with a known history of Down syndrome, hyperlipidemia, obstructive sleep apnea but intolerant to CPAP, gastroesophageal reflux disease. He has a poor historian. He was brought into the emergency room yesterday after his family found him to be short of breath with cough and swelling of the lower extremities. He is quite hypoxic on arrival by EMS and was placed on nonrebreather mass. His x-ray reveals evidence of cardiomegaly with diffuse interstitial edema and basilar infiltrates. EKG reveals normal sinus rhythm without acute ST or T wave abnormalities. White count 6.9. Hemoglobin 17.1. Sodium 134. Creatinine 0.65. Lactic acid 1.5. AST 93. ALT 70. ProBNP 2470. Troponin 0.025. Chavira virus by PCR not detected. He was initiated on IV diuretics, antibiotics, bronchodilators and steroids. He is seen today in consultation in the emergency department. He is currently sitting up in a stretcher. Awake and alert in no acute distress. He is requiring 15 L high flow nasal cannula to maintain O2 saturation in the 90s. He's been afebrile. Hemodynamically stable. So far he is diuresed 1300 ML's. Weight 127 kg. On 10/19/2021 patient seen in follow-up on medical surgical floor, this morning his breathing was significantly labored, rapid response team was called, and patient was placed on BiPAP support with pressures of 12 and 5 and FiO2 100%. He continues on IV diuretics, he is currently on Lasix 40 mg every 12 hours, he is diuresing quite extensively, and he is currently in negative 5.3 L net fluid balance over the last 24 hours, lung sounds reveal diffuse crackles and diminished breath sounds, with slightly better aeration at the left lung. Bose catheter is in, and draining large amount of clear yellow urine, patient is aw jemal and alert, he is tolerating BiPAP support quite well, his been afebrile, no complaints of chest pain, his chest x-ray today shows stable bilateral infiltrates and pleural effusion. His pro calcitonin level was negative his antibiotics were discontinued, steroids have been discontinued, patient has been started on nebulized treatments. BMP results have been reviewed showing sodium of 143, potassium is 4.3, chloride is 94, CO2 is 39, BUN of 14, creatinine 0.7. Objective - Vital Signs Vital signs: Vital Signs Temp 98.5 F 10/19/21 07:40 Pulse 79 10/19/21 11:08 Resp 18 10/19/21 07:40 BP 148/73 10/19/21 07:40 Pulse Ox 76 L 10/19/21 07:40 Intake & Output 10/18/21 10/19/21 10/19/21 18:59 06:59 18:59 Intake Total 750 Output Total 400 5650 Balance -400 -4900 Weight 126.9 kg Intake: Oral 750 Output: Urine 400 5650 Other: Voiding Method Urinal Indwelling Catheter # Voids 1 - Exam GENERAL EXAM: Alert, very pleasant, 45-year-old male with typical features of Down syndrome on BiPAP support with pressures of 12 and 5 and FiO2 100%, with a pulse ox of 94-95%, comfortable in no apparent distress. HEAD: Normocephalic/atraumatic. EYES: Normal reaction of pupils, equal size. Conjunctiva pink, sclera white. NOSE: Clear with pink turbinates. THROAT: No erythema or exudates. NECK: No masses, no JVD, no thyroid enlargement, no adenopathy. CHEST: No chest wall deformity. Symmetrical expansion. LUNGS: Equal air entry with diminished breath sounds and diffuse crackles bilaterally CVS: Regular rate and rhythm, normal S1 and S2, no gallops, no murmurs, no rubs ABDOMEN: Soft, nontender. No hepatosplenomegaly, normal bowel sounds, no guarding or rigidity. EXTREMITIES: No clubbing, 1+ lower extremity edema, no cyanosis, 2+ pulses and upper and lower extremities. MUSCULOSKELETAL: Muscle strength and tone normal. SPINE: No scoliosis or deformity SKIN: No rashes CENTRAL NERVOUS SYSTEM: Alert and oriented -3. No focal deficits, tone is normal in all 4 extremities. PSYCHIATRIC: Alert and oriented -3. Appropriate affect. Intact judgment and insight. - Labs CBC & Chem 7: 10/17/21 Unknown 10/19/21 04:47 Labs: Abnormal Lab Results - Last 24 Hours (Table) 10/18/21 10/19/21 10/19/21 Range/Units 12:40 04:47 07:23 ABG pCO2 76 H* (35-45) mmHg ABG pO2 54 L* (83-108) mmHg ABG HCO3 44 H* (21-25) mmol/L ABG Total CO2 46 H (19-24) mmol/L ABG O2 Saturation 86.6 L (94-97) % Chloride 94 L (96-109) mmol/L Carbon Dioxide 39.1 H (20.0-27.5) mmol/L BUN/Creatinine Ratio 20.22 H (12.00-20.00) Ratio Glucose 123 H (70-110) mg/dL POC Glucose (mg/dL) 131 H (75-99) mg/dL Calcium 7.8 L (8.7-10.3) mg/dL Assessment and Plan Plan: Assessment: #1. Acute hypoxic respiratory failure related to acute exacerbation of kathia stolic CHF, and fluid volume overload. Pro-calcitonin negative, possibly pneumonia is less likely. COVID-19 PCR was negative #2. Dyspnea, and hypoxia, patient required BiPAP support this morning with pressures of 12 and 5 and FiO2 of 100% #3. History of Down syndrome #4. History of hyperlipidemia #5. History of obstructive sleep apnea, intolerant to CPAP #6. Obesity hypoventilation syndrome #7. Morbid obesity with BMI 48 kg/m Plan: Continue BiPAP support, FiO2 has been dropped down to 80% Maintain O2 saturations at or above 88-90% Continue IV diuretics Patient is in negative fluid balance, diuresing quite nicely Today's chest x-ray has been reviewed still showing changes of CHF and bilateral pleural effusions Continue weaning FiO2, May attempt high flow oxygen later on Cardiology George Continue nebulized bronchodilators Echocardiogram has been reviewed showing preserved LV function We'll continue to follow his clinical course Monitor electrolytes and renal function I performed a history & physical examination of the patient and discussed their management with my nurse practitioner, Keyanna Corcoran. I reviewed the nurse practitioner's note and agree with the documented findings and plan of care. Lung sounds are positive for diffuse crackles throughout the lung colon. The findings and the impression was discussed with the patient. I attest to the documentation by the nurse practitioner. Time with Patient: Less than 30
[2021-10-19] MEDS: PIPERACILLIN-TAZOBACTAM 3.375 GM in SODIUM CHLORIDE 0.9% 100 ML IVPB SCH (17:35)
[2021-10-20] MEDS: PIPERACILLIN-TAZOBACTAM 3.375 GM in SODIUM CHLORIDE 0.9% 100 ML IVPB SCH ×4 (00:59→23:49)
[2021-10-20] MEDS: IPRATROPIUM-ALBUTEROL 3 ML NEB INHALATION SCH ×4 (07:15→20:45)
[2021-10-20] MEDS: ATORVASTATIN 40 MG TAB PO SCH (07:45)
[2021-10-20] MEDS: FUROSEMIDE 10 MG/ML 4 ML VIAL IV SCH ×2 (07:45→20:04)
[2021-10-20] MEDS: FAMOTIDINE 20 MG TAB PO SCH (07:45)
[2021-10-20 09:57] LABS: HCT 56.8 % (39.6-50.0); HGB 16.2 g/dL (13.0-17.0); MCHC 28.5 g/dL (32.0-37.0); MCV 94.7 fL (80.0-97.0); Platelet Count 147 X 10*3/uL (140-440); WBC 9.24 X 10*3/uL (4.50-10.00)
[2021-10-20 09:58] LABS: Macrocytosis (M) 2+
[2021-10-20 10:08] LABS: African American GFR (CKD) 125.9 (60.0-200.0); Anion Gap 13.1 mmol/L (10.00-18.00); BUN/Creat Ratio 17.24 Ratio (12.00-20.00); Blood Urea Nitrogen 13.1 mg/dL (9.0-27.0); Calcium 8.3 mg/dL (8.7-10.3); Carbon Dioxide 38.1 mmol/L (20.0-27.5); Non-African American GFR(CKD) 108.7 (60.0-200.0); Potassium 4.1 mmol/L (3.5-5.5)
--- NOTE | 2021-10-20 12:54 | P.PN ---
Subjective -year-old pleasant male with history of Down syndrome given with cough or dyspnea without any fever chills doesn't have any leukocytosis. Patient is presently on 15 L of oxygen Covid 19 is negative. Patient does have pitting pedal edema bilateral lower expertise I am unable to appreciate JVD patient has elevated BNP around 2500. Patient had a chest x-ray which showed showed some possibility of for pulmonary edema pulmonary venous congestion. 10/19/2021 Patient is on BiPAP patient went into respiratory distress patient is found to have related pCO2 patient probably has obesity hypoventilation syndrome as well. Patient is single and crackles bilaterally. 10/20/2021 Patient has significant improvement in his respiratory status patient is off BiPAP and patient is presently on high flow nasal cannula oxygen patient has good urine output remains on IV Lasix. Patient still has some pedal edema pedal edema although significantly improved patient feels much better today. Constitutional: Denied any fatigue denied any fever. Cardio vascular: denied any chest pain, palpitations Gastrointestinal denied any nausea vomiting Pulmonary: Denied any shortness of breath cough Neurologic denied any new focal deficits All inpatient medications were reviewed and appropriate changes in these medications as dictated in the interval history and assessment and plan. PHYSICAL EXAMINATION: GENERAL: The patient is alert and oriented x2 is his baseline, not in any acute distress. Well developed, well nourished. HEENT: Pupils are round and equally reacting to light. EOMI. No scleral icterus. No conjunctival pallor. Normocephalic, atraumatic. No pharyngeal erythema. No thyromegaly. CARDIOVASCULAR: S1 and S2 present. No murmurs, rubs, or gallops. PULMONARY: Still has crackles in bilateral posterior lung colon ABDOMEN: Soft, nontender, nondistended, normoactive bowel sounds. No palpable organomegaly. MUSCULOSKELETAL: No joint swelling or deformity. EXTREMITIES: No cyanosis, clubbing, Bilateral lower extremity swelling improved NEUROLOGICAL: Gross neurological examination did not reveal any focal deficits. SKIN: No rashes. Assessment and plan Acute hypoxic and hypercapnic respiratory failure secondary to congestive heart failure exacerbation and the obesity hypoventilation syndrome respectively patient is onHogh flow NC )2at this time continue with diuresis patient has a Bose catheter presently -New-onset the congestive heart failure is to have diastolic dysfunction had a normal ejection fraction. -Obesity hypoventilation syndrome -Down syndrome and supportive care -Gastroesophageal reflux disease DVT prophylaxis: Lovenox Objective - Vital Signs Vital signs: Vital Signs Temp 98.2 F 10/20/21 07:06 Pulse 76 10/20/21 11:25 Resp 48 H 10/20/21 07:06 BP 111/57 10/20/21 07:06 Pulse Ox 88 L 10/20/21 07:06 Intake & Output 10/19/21 10/20/21 10/20/21 18:59 06:59 18:59 Intake Total 480 Output Total 1300 2650 1175 Balance -4669 -5727 -0172 Intake: Intake, IV Titration 100 Amount Piperacillin-Tazobactam 3 100 .375 gm In Sodium Chloride 0.9% 100 ml @ 25 mls/hr IVPB Q8HR [facility] Rx# :[id number] Oral 380 Output: Urine 1300 2650 1175 Other: Voiding Method Indwelling Catheter Incontinent Incontinent Indwelling Catheter Indwelling Catheter - Labs CBC & Chem 7: 10/20/21 05:01 10/20/21 05:01 Labs: Abnormal Lab Results - Last 24 Hours (Table) 10/20/21 10/20/21 Range/Units 05:01 05:01 RBC 6.00 H (4.40-5.60) X 10*6/uL Hct 56.8 H (39.6-50.0) % MCHC 28.5 L (32.0-37.0) g/dL RDW 20.0 H (11.5-14.5) % Absolute Nucleated RBC 0.04 H (0.00-0.00) X 10*3/uL NRBC/100 WBC Diff 0.4 H (0.0-0.0) /100 WBCS Chloride 89 L (96-109) mmol/L Carbon Dioxide 38.1 H (20.0-27.5) mmol/L Glucose 112 H (70-110) mg/dL Calcium 8.3 L (8.7-10.3) mg/dL
--- NOTE | 2021-10-20 13:25 | P.PN ---
Subjective Progress Note Date: 10/20/21 This is a pleasant 45-year-old gentleman with a known history of Down syndrome, hyperlipidemia, obstructive sleep apnea but intolerant to CPAP, gastroesophageal reflux disease. He has a poor historian. He was brought into the emergency room yesterday after his family found him to be short of breath with cough and swelling of the lower extremities. He is quite hypoxic on arrival by EMS and was placed on nonrebreather mass. His x-ray reveals evidence of cardiomegaly with diffuse interstitial edema and basilar infiltrates. EKG reveals normal sinus rhythm without acute ST or T wave abnormalities. White count 6.9. Hemoglobin 17.1. Sodium 134. Creatinine 0.65. Lactic acid 1.5. AST 93. ALT 70. ProBNP 2470. Troponin 0.025. Chavira virus by PCR not detected. He was initiated on IV diuretics, antibiotics, bronchodilators and steroids. He is seen today in consultation in the emergency department. He is currently sitting up in a stretcher. Awake and alert in no acute distress. He is requiring 15 L high flow nasal cannula to maintain O2 saturation in the 90s. He's been afebrile. Hemodynamically stable. So far he is diuresed 1300 ML's. Weight 127 kg. On 10/19/2021 patient seen in follow-up on medical surgical floor, this morning his breathing was significantly labored, rapid response team was called, and patient was placed on BiPAP support with pressures of 12 and 5 and FiO2 100%. He continues on IV diuretics, he is currently on Lasix 40 mg every 12 hours, he is diuresing quite extensively, and he is currently in negative 5.3 L net fluid balance over the last 24 hours, lung sounds reveal diffuse crackles and diminished breath sounds, with slightly better aeration at the left lung. Bose catheter is in, and draining large amount of clear yellow urine, patient is aw jemal and alert, he is tolerating BiPAP support quite well, his been afebrile, no complaints of chest pain, his chest x-ray today shows stable bilateral infiltrates and pleural effusion. His pro calcitonin level was negative his antibiotics were discontinued, steroids have been discontinued, patient has been started on nebulized treatments. BMP results have been reviewed showing sodium of 143, potassium is 4.3, chloride is 94, CO2 is 39, BUN of 14, creatinine 0.7. On 10/20/2021 patient seen in follow-up on medical surgical floor. His breathing has significantly improved with diuresis, he is currently off BiPAP support, and on 15 L per high flow nasal cannula, his pulse ox is 94%, breathing very comfortably, lung sounds are diminished, without rales or wheezes, however patient is a shallow breather, he needs encouragement to take deep breaths and cough. No coughing noted, his been afebrile, we added Zosyn for his history of aspiration related to his fast eating habits. However his pro calcitonin level has been negative, but in view of his hypoxia we will cover him with Zosyn empir ically. He is in -3470 mL net fluid balance over the last 24 hours, lower extremity edema is improving, he remains on IV Lasix at 40 mg every 12 hours, he is on DuoNeb nebulized treatments, he is on Pepcid. We'll add Lovenox for DVT prophylaxis, today's labs have been reviewed showing white blood cell count of 9.2, hemoglobin of 16.2, sodium is 140, potassium is 4.1, chloride is 89, CO2 is 38, BUN of 13, creatinine 0.8. No nausea or vomiting, no diarrhea. He is feeling hungry, he would like to eat Objective - Vital Signs Vital signs: Vital Signs Temp 98.2 F 10/20/21 07:06 Pulse 76 10/20/21 11:25 Resp 48 H 10/20/21 07:06 BP 111/57 10/20/21 07:06 Pulse Ox 88 L 10/20/21 07:06 Intake & Output 10/19/21 10/20/21 10/20/21 18:59 06:59 18:59 Intake Total 480 Output Total 1300 2650 1175 Balance -0531 -4319 -4772 Intake: Intake, IV Titration 100 Amount Piperacillin-Tazobactam 3 100 .375 gm In Sodium Chloride 0.9% 100 ml @ 25 mls/hr IVPB Q8HR [facility] Rx# :[id number] Oral 380 Output: Urine 1300 2650 1175 Other: Voiding Method Indwelling Catheter Incontinent Incontinent Indwelling Catheter Indwelling Catheter - Exam GENERAL EXAM: Alert, very pleasant, 45-year-old male with typical features of Down syndrome on currently sitting up in the recliner, on 15 L per high flow n corrine cannula, breathing comfortably with a pulse ox of 94-95%, comfortable in no apparent distress. HEAD: Normocephalic/atraumatic. EYES: Normal reaction of pupils, equal size. Conjunctiva pink, sclera white. NOSE: Clear with pink turbinates. THROAT: No erythema or exudates. NECK: No masses, no JVD, no thyroid enlargement, no adenopathy. CHEST: No chest wall deformity. Symmetrical expansion. LUNGS: Equal air entry with diminished breath sounds and diffuse crackles bilaterally CVS: Regular rate and rhythm, normal S1 and S2, no gallops, no murmurs, no rubs ABDOMEN: Soft, nontender. No hepatosplenomegaly, normal bowel sounds, no guarding or rigidity. EXTREMITIES: No clubbing, 1+ lower extremity edema, no cyanosis, 2+ pulses and upper and lower extremities. MUSCULOSKELETAL: Muscle strength and tone normal. SPINE: No scoliosis or deformity SKIN: No rashes CENTRAL NERVOUS SYSTEM: Alert and oriented -3. No focal deficits, tone is normal in all 4 extremities. PSYCHIATRIC: Alert and oriented -3. Appropriate affect. Intact judgment and insight. - Labs CBC & Chem 7: 10/20/21 05:01 10/20/21 05:01 Labs: Abnormal Lab Results - Last 24 Hours (Table) 10/20/21 10/20/21 Range/Units 05:01 05:01 RBC 6.00 H (4.40-5.60) X 10*6/uL Hct 56.8 H (39.6-50.0) % MCHC 28.5 L (32.0-37.0) g/dL RDW 20.0 H (11.5-14.5) % Absolute Nucleated RBC 0.04 H (0.00-0.00) X 10*3/uL NRBC/100 WBC Diff 0.4 H (0.0-0.0) /100 WBCS Chloride 89 L (96-109) mmol/L Carbon Dioxide 38.1 H (20.0-27.5) mmol/L Glucose 112 H (70-110) mg/dL Calcium 8.3 L (8.7-10.3) mg/dL Assessment and Plan Plan: Assessment: #1. Acute hypoxic respiratory failure related to acute exacerbation of diastolic CHF, and fluid volume overload. Pro-calcitonin negative, pneumonia is less likely. COVID-19 PCR was negative. However patient does have history of aspiration pneumonia, he is currently empirically covered with Zosyn #2. Dyspnea, and hypoxia, patient required BiPAP support this morning with pressures of 12 and 5 and FiO2 of 100%, improved and patient is currently on 15 L per high flow nasal cannula #3. History of Down syndrome #4. History of hyperlipidemia #5. History of obstructive sleep apnea, intolerant to CPAP #6. Obesity hypoventilation syndrome #7. Morbid obesity with BMI 48 kg/m Plan: Patient is breathing much easier, He continues to diurese, he is in -3.4 L net fluid balance He is off BiPAP support and on 15 L high flow nasal cannula May use BiPAP support as needed and at bedtime Weaning FiO2 to keep O2 sats ration sat 88% and above Continue IV diuretics Follow-up chest x-ray tomorrow Follow-up labs tomorrow We added Zosyn for empiric antibiotic coverage in view of his history of aspiration related to his fast eating habits We'll continue to follow his clinical course Echocardiogram showed preserved LV function Vital signs have been stable Blood pressure stable Continue nebulized bronchodilators Add Lovenox 40 mg daily for DVT prophylaxis Continue Pepcid for GI prophylaxis Advance diet as tolerated Provide assistance and supervision with meals as needed I performed a history & physical examination of the patient and discussed their management with my nurse practitioner, Keyanna Corcoran. I reviewed the nurse practitioner's note and agree with the documented findings and plan of care. Lung sounds are positive for diffuse crackles throughout the lung colon. The findings and the impression was discussed with the patient. I attest to the documentation by the nurse practitioner. Time with Patient: Less than 30
--- NOTE | 2021-10-20 13:59 | PN ---
PROGRESS NOTE Mr. Malik Wilson is a patient with underlying Down syndrome who was seen by Dr. Mills. He also seems to have a combination of exacerbation of COPD, possible mild pneumonia and diastolic heart failure. He is in sinus rhythm. He is on diuretics and high-flow oxygen. His blood pressure seems to be reasonably well controlled. Vitals are stable. JVD 1 cm is evident. S1, S2 heard normally. No significant murmurs. Lungs reveal diminished air entry in both lung colon. Abdomen is soft. Lower extremities reveal diminished pulses, trace edema. Central nervous system is unremarkable. I am recommending that we continue IV Lasix for now and also continue the oxygen supplementation, which is actually high-flow oxygen, and antibiotics. Prognosis remains guarded. He has a combination of what seems to be either bronchitis/pneumonia and also diastolic heart failure. Will continue diuresis. Prognosis remains guarded. MMODL / IJN: [id number] /
[2021-10-20] MEDS: ENOXAPARIN 40 MG/0.4 ML SYRINGE SQ SCH (14:07)
[2021-10-21] MEDS: FUROSEMIDE 10 MG/ML 4 ML VIAL IV SCH ×2 (05:51→20:25)
[2021-10-21] MEDS ORDERED: HALOPERIDOL LACTATE 5 MG/ML 1 ML VIAL IM PRN (08:30)
[2021-10-21] MEDS: IPRATROPIUM-ALBUTEROL 3 ML NEB INHALATION SCH ×4 (08:31→19:41)
[2021-10-21] MEDS: ATORVASTATIN 40 MG TAB PO SCH (08:54)
[2021-10-21] MEDS: PIPERACILLIN-TAZOBACTAM 3.375 GM in SODIUM CHLORIDE 0.9% 100 ML IVPB SCH ×3 (08:54→23:34)
[2021-10-21] MEDS: FAMOTIDINE 20 MG TAB PO SCH (08:54)
[2021-10-21] MEDS: ENOXAPARIN 40 MG/0.4 ML SYRINGE SQ SCH (08:54)
--- NOTE | 2021-10-21 08:58 | XR ---
EXAMINATION TYPE: XR chest 1V portable DATE OF EXAM: 10/21/2021 COMPARISON: 10/19/2021 HISTORY: 45 years Male. STUDY INDICATION GIVEN: shortness of breath . TECHNIQUE: AP upright chest radiograph IMPRESSION: Interval decrease in bilateral left greater than right airspace and interstitial opacities. No pneumothorax or large effusion. Prominent cardiac silhouette. Osseous structures are stable.
--- NOTE | 2021-10-21 09:30 | P.PN ---
Subjective -year-old pleasant male with history of Down syndrome given with cough or dyspnea without any fever chills doesn't have any leukocytosis. Patient is presently on 15 L of oxygen Covid 19 is negative. Patient does have pitting pedal edema bilateral lower expertise I am unable to appreciate JVD patient has elevated BNP around 2500. Patient had a chest x-ray which showed showed some possibility of for pulmonary edema pulmonary venous congestion. 10/19/2021 Patient is on BiPAP patient went into respiratory distress patient is found to have related pCO2 patient probably has obesity hypoventilation syndrome as well. Patient is single and crackles bilaterally. 10/20/2021 Patient has significant improvement in his respiratory status patient is off BiPAP and patient is presently on high flow nasal cannula oxygen patient has good urine output remains on IV Lasix. Patient still has some pedal edema pedal edema although significantly improved patient feels much better today. 10/21/2021 Patient is a not keeping his BiPAP are high flow nasal cannula oxygen because of which the patient received Haldol and his tolerating BiPAP well patient swelling significantly improved only minimal swelling. Chest x-ray showed improvement in pulmonary edema although still has some pulmonary edema. Continue with IV Lasix for today. Constitutional: Denied any fatigue denied any fever. Cardio vascular: denied any chest pain, palpitations Gastrointestinal denied any nausea vomiting Pulmonary: Denied any shortness of breath cough Neurologic denied any new focal deficits All inpatient medications were reviewed and appropriate changes in these me dications as dictated in the interval history and assessment and plan. PHYSICAL EXAMINATION: GENERAL: The patient is alert and oriented x2 is his baseline, not in any acute distress. Well developed, well nourished. HEENT: Pupils are round and equally reacting to light. EOMI. No scleral icterus. No conjunctival pallor. Normocephalic, atraumatic. No pharyngeal erythema. No thyromegaly. CARDIOVASCULAR: S1 and S2 present. No murmurs, rubs, or gallops. PULMONARY: Still has crackles in bilateral posterior lung colon ABDOMEN: Soft, nontender, nondistended, normoactive bowel sounds. No palpable organomegaly. MUSCULOSKELETAL: No joint swelling or deformity. EXTREMITIES: No cyanosis, clubbing, Bilateral lower extremity swelling improved NEUROLOGICAL: Gross neurological examination did not reveal any focal deficits. SKIN: No rashes. Assessment and plan Acute hypoxic and hypercapnic respiratory failure secondary to congestive heart failure exacerbation and the obesity hypoventilation syndrome respectively patient is on High flow NC oxygen and the BiPAP at this time continue with d iuresis patient has a Bose catheter presently -New-onset the congestive heart failure is to have diastolic dysfunction had a normal ejection fraction. -Obesity hypoventilation syndrome -Down syndrome and supportive care -Gastroesophageal reflux disease DVT prophylaxis: Lovenox Objective - Vital Signs Vital signs: Vital Signs Temp 98.6 F 10/21/21 08:00 Pulse 80 10/21/21 08:52 Resp 22 10/21/21 08:00 BP 143/65 10/21/21 08:00 Pulse Ox 90 L 10/21/21 08:00 Intake & Output 10/20/21 10/21/21 10/21/21 18:59 06:59 18:59 Intake Total 550 Output Total 2700 2450 Balance -2700 -1900 Intake: Intake, IV Titration 100 Amount Piperacillin-Tazobactam 3 100 .375 gm In Sodium Chloride 0.9% 100 ml @ 25 mls/hr IVPB Q8HR [facility] Rx# :[id number] Oral 450 Output: Urine 2700 2450 Other: Voiding Method Incontinent Incontinent Indwelling Catheter Indwelling Catheter # Voids 2 - Labs CBC & Chem 7: 10/20/21 05:01 10/20/21 05:01 Labs: Abnormal Lab Results - Last 24 Hours (Table) 10/20/21 10/20/21 Range/Units 05:01 05:01 RBC 6.00 H (4.40-5.60) X 10*6/uL Hct 56.8 H (39.6-50.0) % MCHC 28.5 L (32.0-37.0) g/dL RDW 20.0 H (11.5-14.5) % Absolute Nucleated RBC 0.04 H (0.00-0.00) X 10*3/uL NRBC/100 WBC Diff 0.4 H (0.0-0.0) /100 WBCS Chloride 89 L (96-109) mmol/L Carbon Dioxide 38.1 H (20.0-27.5) mmol/L Glucose 112 H (70-110) mg/dL Calcium 8.3 L (8.7-10.3) mg/dL
--- NOTE | 2021-10-21 11:12 | PN ---
PROGRESS NOTE This gentleman has underlying Down syndrome, obesity, COPD with exacerbation. He probably has a significant obstructive sleep apnea as well. He has had issues wearing BiPAP through the night but this morning after some Haldol injection, he is taking his BiPAP and is using it and oxygen saturation has come up nicely. There was a question of CHF and pneumonia. He is on antibiotics, but I think we are dealing mostly with diastolic heart failure and obstructive sleep apnea picture. We will continue diuretics for the time being. Overall prognosis remains guarded. Continue current medical regimen, including diuretics for today. Vitals are stable. Oxygen saturation is improved. There is JVD evident at least 1 cm. S1-S2 heard normally distantly. No significant murmurs. Lungs reveal diminished air entry. Abdomen is soft. Lower extremities reveal trace edema. Central nervous system is no focal deficits. We will continue to follow as needed. [id number] / PRESLEYN: [id number] /
[2021-10-21 13:06] LABS: Glucose,Whole Blood 180 mg/dL (75-99)
--- NOTE | 2021-10-21 16:14 | P.PN ---
Subjective Progress Note Date: 10/21/21 Principal diagnosis: Acute hypoxic respiratory failure secondary to acute exacerbation of diastolic congestive heart failure, possible pneumonia patient had negative pro calcitonin level. This is a pleasant 45-year-old gentleman with a known history of Down syndrome, hyperlipidemia, obstructive sleep apnea but intolerant to CPAP, gastroesophageal reflux disease. He has a poor historian. He was brought into the emergency room yesterday after his family found him to be short of breath with cough and swelling of the lower extremities. He is quite hypoxic on arrival by EMS and was placed on nonrebreather mass. His x-ray reveals evidence of cardiomegaly with diffuse interstitial edema and basilar infiltrates. EKG reveals normal sinus rhythm without acute ST or T wave abnormalities. White count 6.9. Hemoglobin 17.1. Sodium 134. Creatinine 0.65. Lactic acid 1.5. AST 93. ALT 70. ProBNP 2470. Troponin 0.025. Chavira virus by PCR not detected. He was initiated on IV diuretics, antibiotics, bronchodilators and steroids. He is seen today in consultation in the emergency department. He is currently sitting up in a stretcher. Awake and alert in no acute distress. He is requiring 15 L high flow nasal cannula to maintain O2 saturation in the 90s. He's been afebrile. Hemodynamically stable. So far he is diuresed 1300 ML's. Weight 127 kg. On 10/19/2021 patient seen in follow-up on medical surgical floor, this morning his breathing was significantly labored, rapid response team was called, and patient was placed on BiPAP support with pressures of 12 and 5 and FiO2 100%. He continues on IV diuretics, he is currently on Lasix 40 mg every 12 hours, he is diuresing quite extensively, and he is currently in negative 5.3 L net fluid balance over the last 24 hours, lung sounds reveal diffuse crackles and diminished breath sounds, with slightly better aeration at the left lung. Bose catheter is in, and draining large amount of clear yellow urine, patient is awake and alert, he is tolerating BiPAP support quite well, his been afebrile, no complaints of chest pain, his chest x-ray today shows stable bilateral infiltrates and pleural effusion. His pro calcitonin level was negative his antibiotics were discontinued, steroids have been discontinued, patient has been started on nebulized treatments. BMP results have been reviewed showing sodium of 143, potassium is 4.3, chloride is 94, CO2 is 39, BUN of 14, creatinine 0.7. On 10/20/2021 patient seen in follow-up on medical surgical floor. His breathing has significantly improved with diuresis, he is currently off BiPAP support, and on 15 L per high flow nasal cannula, his pulse ox is 94%, breathing very comfortably, lung sounds are diminished, without rales or wheezes, however patient is a shallow breather, he needs encouragement to take deep breaths and cough. No coughing noted, his been afebrile, we added Zosyn for his history of aspiration related to his fast eating habits. However his pro calcitonin level has been negative, but in view of his hypoxia we will cover him with Zosyn empirically. He is in -3470 mL net fluid balance over the last 24 hours, lower extremity edema is improving, he remains on IV Lasix at 40 mg every 12 hours, he is on DuoNeb nebulized treatments, he is on Pepcid. We'll add Lovenox for DVT prophylaxis, today's labs have been reviewed showing white blood cell count of 9.2, hemoglobin of 16.2, sodium is 140, potassium is 4.1, chloride is 89, CO2 is 38, BUN of 13, creatinine 0.8. No nausea or vomiting, no diarrhea. He is feeling hungry, he would like to eat Reevaluated today on 10/21/21, patient is back on BiPAP today. And he is on the percent FiO2 feeling better breathing easier, but had a bit of a setback and requiring more FiO2 to maintain adequate oxygenation. Patient remains on diuretics, remains on antibiotics empirically, furosemide is at 40 mg IV push every 12 hours. Patient is marginal at best. He is not a great historian but he does not seem to be in distress on BiPAP. Labs today showed BNP level of 265, his blood sugar was 180. WBC count is 9.4. Objective - Vital Signs Vital signs: Vital Signs Temp 98.9 F 10/21/21 14:00 Pulse 77 10/21/21 15:34 Resp 34 H 10/21/21 14:00 BP 155/71 10/21/21 14:00 Pulse Ox 88 L 10/21/21 14:00 Intake & Output 10/20/21 10/21/21 10/21/21 18:59 06:59 18:59 Intake Total 550 Output Total 2700 2450 Balance -2700 -1900 Intake: Intake, IV Titration 100 Amount Piperacillin-Tazobactam 3 100 .375 gm In Sodium Chloride 0.9% 100 ml @ 25 mls/hr IVPB Q8HR [facility] Rx# :[id number] Oral 450 Output: Urine 2700 2450 Other: Voiding Method Incontinent Incontinent Indwelling Catheter Indwelling Catheter Indwelling Catheter # Voids 2 - Exam Physical Exam: Revealed 45-year-old white male obese on BiPAP in no distress. Head: Atraumatic normocephalic. HEENT:[Neck is supple.] [No neck masses.] [No thyromegaly.] [No JVD.] Chest: [Symmetrical chest expansion crackles at the bases. Cardiac Exam: [Normal S1 and S2, no S3 gallop, no murmur.] Abdomen: [Soft, nontender, no megaly, no rebound, no guarding, normal bowel sounds.] Extremities: [No clubbing, no edema, no cyanosis.] Neurological Exam: [No focal neurologic deficit.] Musculoskeletal no deformities and no limitation in range of motion. - Labs CBC & Chem 7: 10/20/21 05:01 10/20/21 05:01 Labs: Abnormal Lab Results - Last 24 Hours (Table) 10/21/21 Range/Units 13:05 POC Glucose (mg/dL) 180 H (75-99) mg/dL Assessment and Plan Assessment: #1. Acute hypoxic respiratory failure related to acute exacerbation of diastolic CHF, and fluid volume overload. Pro-calcitonin negative, pneumonia is less likely. COVID-19 PCR was negative. However patient does have history of aspiration pneumonia, he is currently empirically covered with Zosyn, I am mostly concerned because the patient may have aspirated, and sustained acute lung injury from aspiration because he did have a previous history of aspiration in the past. We'll continue Zosyn. #2. Dyspnea, and hypoxia, patient required BiPAP support this morning with pressures of 12 and 5 and FiO2 of 100%, improved and patient is currently on 15 L per high flow nasal cannula #3. History of Down syndrome #4. History of hyperlipidemia #5. History of obstructive sleep apnea, intolerant to CPAP #6. Obesity hypoventilation syndrome #7. Morbid obesity with BMI 48 kg/m Recommendation: Continue BiPAP and titrate accordingly Continue diuretics. Continue antibiotics. Continue updrafts. Continue Lovenox. Continue GI prophylaxis. We will continue to follow. Time with Patient: Less than 30
[2021-10-22] MEDS: IPRATROPIUM-ALBUTEROL 3 ML NEB INHALATION SCH ×4 (07:51→18:51)
[2021-10-22] MEDS: ATORVASTATIN 40 MG TAB PO SCH (08:44)
[2021-10-22] MEDS: PIPERACILLIN-TAZOBACTAM 3.375 GM in SODIUM CHLORIDE 0.9% 100 ML IVPB SCH ×2 (08:44→16:06)
[2021-10-22] MEDS: ENOXAPARIN 40 MG/0.4 ML SYRINGE SQ SCH (08:44)
[2021-10-22] MEDS: FUROSEMIDE 10 MG/ML 4 ML VIAL IV SCH ×2 (08:44→20:38)
[2021-10-22] MEDS: FAMOTIDINE 20 MG TAB PO SCH (08:44)
[2021-10-22 09:45] LABS: African American GFR (CKD) 138.8 (60.0-200.0); Anion Gap 13.6 mmol/L (10.00-18.00); BUN/Creat Ratio 19.17 Ratio (12.00-20.00); Blood Urea Nitrogen 11.5 mg/dL (9.0-27.0); Calcium 8.1 mg/dL (8.7-10.3); Carbon Dioxide 36.4 mmol/L (20.0-27.5); Non-African American GFR(CKD) 119.7 (60.0-200.0)
--- NOTE | 2021-10-22 10:01 | P.PN ---
Subjective Progress Note Date: 10/22/21 This is a pleasant 45-year-old gentleman with a known history of Down syndrome, hyperlipidemia, obstructive sleep apnea but intolerant to CPAP, gastroesophageal reflux disease. He has a poor historian. He was brought into the emergency room yesterday after his family found him to be short of breath with cough and swelling of the lower extremities. He is quite hypoxic on arrival by EMS and was placed on nonrebreather mass. His x-ray reveals evidence of cardiomegaly with diffuse interstitial edema and basilar infiltrates. EKG reveals normal sinus rhythm without acute ST or T wave abnormalities. White count 6.9. Hemoglobin 17.1. Sodium 134. Creatinine 0.65. Lactic acid 1.5. AST 93. ALT 70. ProBNP 2470. Troponin 0.025. Chavira virus by PCR not detected. He was initiated on IV diuretics, antibiotics, bronchodilators and steroids. He is seen today in consultation in the emergency department. He is currently sitting up in a stretcher. Awake and alert in no acute distress. He is requiring 15 L high flow nasal cannula to maintain O2 saturation in the 90s. He's been afebrile. Hemodynamically stable. So far he is diuresed 1300 ML's. Weight 127 kg. On 10/19/2021 patient seen in follow-up on medical surgical floor, this morning his breathing was significantly labored, rapid response team was called, and patient was placed on BiPAP support with pressures of 12 and 5 and FiO2 100%. He continues on IV diuretics, he is currently on Lasix 40 mg every 12 hours, he is diuresing quite extensively, and he is currently in negative 5.3 L net fluid balance over the last 24 hours, lung sounds reveal diffuse crackles and diminished breath sounds, with slightly better aeration at the left lung. Bose catheter is in, and draining large amount of clear yellow urine, patient is aw jemal and alert, he is tolerating BiPAP support quite well, his been afebrile, no complaints of chest pain, his chest x-ray today shows stable bilateral infiltrates and pleural effusion. His pro calcitonin level was negative his antibiotics were discontinued, steroids have been discontinued, patient has been started on nebulized treatments. BMP results have been reviewed showing sodium of 143, potassium is 4.3, chloride is 94, CO2 is 39, BUN of 14, creatinine 0.7. On 10/20/2021 patient seen in follow-up on medical surgical floor. His breathing has significantly improved with diuresis, he is currently off BiPAP support, and on 15 L per high flow nasal cannula, his pulse ox is 94%, breathing very comfortably, lung sounds are diminished, without rales or wheezes, however patient is a shallow breather, he needs encouragement to take deep breaths and cough. No coughing noted, his been afebrile, we added Zosyn for his history of aspiration related to his fast eating habits. However his pro calcitonin level has been negative, but in view of his hypoxia we will cover him with Zosyn empir ically. He is in -3470 mL net fluid balance over the last 24 hours, lower extremity edema is improving, he remains on IV Lasix at 40 mg every 12 hours, he is on DuoNeb nebulized treatments, he is on Pepcid. We'll add Lovenox for DVT prophylaxis, today's labs have been reviewed showing white blood cell count of 9.2, hemoglobin of 16.2, sodium is 140, potassium is 4.1, chloride is 89, CO2 is 38, BUN of 13, creatinine 0.8. No nausea or vomiting, no diarrhea. He is feeling hungry, he would like to eat On 10/22/2021 patient seen in follow-up on medical surgical floor. He is currently on BiPAP of 12 and 500% FiO2, his pulse ox is 95-97%, and his FiO2 will be cut back to 80%, patient has been coming off the BiPAP on 15 L high flow to it however she quickly desaturates, and has to return to BiPAP, otherwise he is breathing comfortably, his lung sounds are diminished, I did not appreciate a ny crackles or wheezing. He remains on IV Lasix 40 mg every 12 hours, And he is in negative 4.6 L net fluid balance over the last 24 hours, lower extremity edema is improving, yesterday chest x-ray showing interval decrease in bilateral airspace and interstitial opacities. Objective - Vital Signs Vital signs: Vital Signs Temp 98.3 F 10/22/21 06:08 Pulse 84 10/22/21 08:02 Resp 18 10/22/21 06:08 BP 138/74 10/22/21 06:08 Pulse Ox 97 10/22/21 06:08 Intake & Output 10/21/21 10/22/21 10/22/21 18:59 06:59 18:59 Output Total 1726 2400 Balance -1726 -2400 Output: Urine 1725 2400 Stool 1 Other: Voiding Method Indwelling Catheter Indwelling Catheter - Exam GENERAL EXAM: Alert, very pleasant, 45-year-old male with typical features of Down syndrome on currently sitting up in the recliner, currently on BiPAP support with pressures of 12 and 5 and FiO2 100%, with a pulse ox of 95-97%, breathing comfortably with a pulse ox of 94-95%, comfortable in no apparent distress. HEAD: Normocephalic/atraumatic. EYES: Normal reaction of pupils, equal size. Conjunctiva pink, sclera white. NOSE: Clear with pink turbinates. THROAT: No erythema or exudates. NECK: No masses, no JVD, no thyroid enlargement, no adenopathy. CHEST: No chest wall deformity. Symmetrical expansion. LUNGS: Equal air entry with diminished breath sounds and diffuse crackles bilaterally CVS: Regular rate and rhythm, normal S1 and S2, no gallops, no murmurs, no rubs ABDOMEN: Soft, nontender. No hepatosplenomegaly, normal bowel sounds, no guarding or rigidity. EXTREMITIES: No clubbing, trace pretibial edema, no cyanosis, 2+ pulses and upper and lower extremities. MUSCULOSKELETAL: Muscle strength and tone normal. SPINE: No scoliosis or deformity SKIN: No rashes CENTRAL NERVOUS SYSTEM: Alert and oriented -3. No focal deficits, tone is normal in all 4 extremities. PSYCHIATRIC: Alert and oriented -3. Appropriate affect. Intact judgment and insight. - Labs CBC & Chem 7: 10/20/21 05:01 10/22/21 03:53 Labs: Abnormal Lab Results - Last 24 Hours (Table) 10/21/21 10/22/21 Range/Units 13:05 03:53 Chloride 88 L (96-109) mmol/L Carbon Dioxide 36.4 H (20.0-27.5) mmol/L POC Glucose (mg/dL) 180 H (75-99) mg/dL Calcium 8.1 L (8.7-10.3) mg/dL Assessment and Plan Plan: Assessment: #1. Acute hypoxic respiratory failure related to acute exacerbation of diastolic CHF, and fluid volume overload. Pro-calcitonin negative, pneumonia is less likely. COVID-19 PCR was negative. However patient does have history of aspiration pneumonia, he is currently empirically covered with Zosyn #2. Dyspnea, and hypoxia, patient required BiPAP support this morning with pressures of 12 and 5 and FiO2 of 100%, improved and patient is currently on 15 L per high flow nasal cannula #3. History of Down syndrome #4. History of hyperlipidemia #5. History of obstructive sleep apnea, intolerant to CPAP #6. Obesity hypoventilation syndrome #7. Morbid obesity with BMI 48 kg/m Plan: Continue with IV diuretics at 40 mg twice a day Patient is maintaining negative fluid balance Continue empiric antibiotics Yesterday's chest x-ray showed improvement in the appearance of bilateral airspace and interstitial opacities Continue GI and DVT prophylaxis Continue BiPAP support at 12/5 and FiO2 will be down to 80% May provide high flow nasal cannula trials for meals I performed a history & physical examination of the patient and discussed their management with my nurse practitioner, Keyanna Corcoran. I reviewed the nurse practitioner's note and agree with the documented findings and plan of care. Lung sounds are positive for diffuse crackles throughout the lung colon. The findings and the impression was discussed with the patient. I attest to the documentation by the nurse practitioner. Time with Patient: Less than 30
--- NOTE | 2021-10-22 10:47 | P.PN ---
Subjective -year-old pleasant male with history of Down syndrome given with cough or dyspnea without any fever chills doesn't have any leukocytosis. Patient is presently on 15 L of oxygen Covid 19 is negative. Patient does have pitting pedal edema bilateral lower expertise I am unable to appreciate JVD patient has elevated BNP around 2500. Patient had a chest x-ray which showed showed some possibility of for pulmonary edema pulmonary venous congestion. 10/19/2021 Patient is on BiPAP patient went into respiratory distress patient is found to have related pCO2 patient probably has obesity hypoventilation syndrome as well. Patient is single and crackles bilaterally. 10/20/2021 Patient has significant improvement in his respiratory status patient is off BiPAP and patient is presently on high flow nasal cannula oxygen patient has good urine output remains on IV Lasix. Patient still has some pedal edema pedal edema although significantly improved patient feels much better today. 10/21/2021 Patient is a not keeping his BiPAP are high flow nasal cannula oxygen because of which the patient received Haldol and his tolerating BiPAP well patient swelling significantly improved only minimal swelling. Chest x-ray showed improvement in pulmonary edema although still has some pulmonary edema. Continue with IV Lasix for today. 11 having good urine output creatinine remained stable. Constitutional: Denied any fatigue denied any fever. Cardio vascular: denied any chest pain, palpitations Gastrointestinal denied any nausea vomiting Pulmonary: The interval history Neurologic denied any new focal deficits All inpatient medications were reviewed and appropriate changes in these medications as dictated in the interval history and assessment and plan. PHYSICAL EXAMINATION: GENERAL: The patient is alert and oriented x2 is his baseline, not in any acute distress. Well developed, well nourished. HEENT: Pupils are round and equally reacting to light. EOMI. No scleral icterus. No conjunctival pallor. Normocephalic, atraumatic. No pharyngeal erythema. No thyromegaly. CARDIOVASCULAR: S1 and S2 present. No murmurs, rubs, or gallops. PULMONARY: As breath sounds, no wheezing or crackles ABDOMEN: Soft, nontender, nondistended, normoactive bowel sounds. No palpable organomegaly. MUSCULOSKELETAL: No joint swelling or deformity. EXTREMITIES: No cyanosis, clubbing, Bilateral lower extremity swelling improved NEUROLOGICAL: Gross neurological examination did not reveal any focal deficits. SKIN: No rashes. Assessment and plan Acute hypoxic and hypercapnic respiratory failure secondary to congestive heart failure exacerbation and the obesity hypoventilation syndrome respectively patient is on High flow NC oxygen and the BiPAP at this time continue with diuresis patient has a Bose catheter presently pedal edema significantly improved good urine output -New-onset the congestive heart failure is to have diastolic dysfunction had a normal ejection fraction. -Obesity hypoventilation syndrome -Down syndrome and supportive care -Gastroesophageal reflux disease DVT prophylaxis: Lovenox Objective - Vital Signs Vital signs: Vital Signs Temp 98.3 F 10/22/21 06:08 Pulse 84 10/22/21 08:02 Resp 18 10/22/21 06:08 BP 138/74 10/22/21 06:08 Pulse Ox 97 10/22/21 06:08 Intake & Output 10/21/21 10/22/21 10/22/21 18:59 06:59 18:59 Output Total 1726 2400 Balance -1726 -2400 Output: Urine 1725 2400 Stool 1 Other: Voiding Method Indwelling Catheter Indwelling Catheter Indwelling Catheter - Labs CBC & Chem 7: 10/20/21 05:01 10/22/21 03:53 Labs: Abnormal Lab Results - Last 24 Hours (Table) 10/21/21 10/22/21 Range/Units 13:05 03:53 Chloride 88 L (96-109) mmol/L Carbon Dioxide 36.4 H (20.0-27.5) mmol/L POC Glucose (mg/dL) 180 H (75-99) mg/dL Calcium 8.1 L (8.7-10.3) mg/dL
--- NOTE | 2021-10-22 16:00 | US ---
EXAMINATION TYPE: US venous doppler duplex LE DATE OF EXAM: 10/22/2021 2:52 PM COMPARISON: NONE CLINICAL HISTORY: severe hypoxia. Down syndrome patient on oxygen, large habitus, no h/o dvt, unable to lay supine, rolled to right side, limited exam SIDE PERFORMED: Bilateral TECHNIQUE: The lower extremity deep venous system is examined utilizing real time linear array sonog shayla with graded compression, doppler sonography and color-flow sonography. VESSELS IMAGED: Common Femoral Vein Deep Femoral Vein Greater Saphenous Vein * Femoral Vein Popliteal Vein Small Saphenous Vein * Proximal Calf Veins (* superficial vessels) very limited study due to habitus and patient is rolled to right side, unable to lay flat or put le ft leg down, unable to do proximal femoral vein through groin due to reasons stated above. Right Leg: Popiteal vein through mid FV appear patient with no signs of DVT Left Leg: distal popiteal vein had good flow but unable to assess other levels of pop vein, again on ly able to see mid and dist femoral vein which appear patient with no signs of DVT IMPRESSION: 1. Limited evaluation of the right leg; however, the right popliteal vein through the mid femoral vei n appear patent without signs of deep venous thrombosis. 2. Limited evaluation of the left leg; however, the distal left popliteal vein and the mid to distal femoral vein appear patent without signs of deep venous thrombosis.
[2021-10-23] MEDS: PIPERACILLIN-TAZOBACTAM 3.375 GM in SODIUM CHLORIDE 0.9% 100 ML IVPB SCH ×3 (00:35→17:29)
[2021-10-23] MEDS: ONDANSETRON 4 MG/2 ML VIAL IVP PRN (06:11)
[2021-10-23] MEDS: IPRATROPIUM-ALBUTEROL 3 ML NEB INHALATION SCH ×4 (07:23→19:07)
--- NOTE | 2021-10-23 07:41 | XR ---
EXAMINATION TYPE: XR chest 1V portable DATE OF EXAM: 10/23/2021 COMPARISON: 10/21/2021 HISTORY: Chest pain TECHNIQUE: Single frontal view of the chest is obtained. FINDINGS: Patchy perihilar and basilar infiltrates persist essentially unchanged. The cardiac silhouette size is within normal limits. The osseous structures are intact. IMPRESSION: 1. Patchy perihilar and basilar infiltrates persist essentially unchanged.
[2021-10-23] MEDS: FUROSEMIDE 10 MG/ML 4 ML VIAL IV SCH (07:56)
[2021-10-23] MEDS ORDERED: METOCLOPRAMIDE 5 MG/ML 2 ML VIAL ONE (08:00)
[2021-10-23] MEDS ORDERED: METOCLOPRAMIDE 5 MG/ML 2 ML VIAL IVP STA (08:03)
--- NOTE | 2021-10-23 08:26 | XR ---
EXAMINATION TYPE: XR abdomen 1V DATE OF EXAM: 10/23/2021 COMPARISON: NONE HISTORY: Pain TECHNIQUE: One view abdominal series FINDINGS: The osseous structures are intact. The bowel gas pattern is nonspecific. Basilar infiltrates are see n. Only the mid and upper abdomen is included on this single view. IMPRESSION: 1. Nonspecific abdomen, limited field of view. 2. Bibasilar infiltrates.
[2021-10-23 08:29] LABS: ALT 23 U/L (4-49); AST 41 U/L (17-59); African American GFR (CKD) >90 (>60 ml/min/1.73 sqM); Albumin 3.1 g/dL (3.5-5.0); Albumin/Globulin Ratio 0.8; Alkaline Phosphatase 99 U/L (38-126); Blood Urea Nitrogen 14 mg/dL (9-20); Calcium 8.4 mg/dL (8.4-10.2); Chloride 86 mmol/L (98-107); Glucose 103 mg/dL (74-99); Non-African American GFR(CKD) >90 (>60 ml/min/1.73 sqM); Potassium 3.8 mmol/L (3.5-5.1); Sodium 135 mmol/L (137-145); Total Protein 7.1 g/dL (6.3-8.2)
--- NOTE | 2021-10-23 08:34 | P.EN ---
A- team: Indication: Hypoxia and dry heaving Arrived on Scene to find: non rebreather in place Patient seen and examined at bedside. He complains of shortness of breath, he is dry heaving, and complaining of stomach pain Per nursing was having nuasea and hypoxia this morning. Tried increasing the Bipap setting and nausea became worse. Vital signs reviewed General: ill appearing, moderate distress, appears at stated age Derm: warm, dry, dry flaking skin Head: atraumatic, normocephalic, symmetric Eyes: EOMI, no lid lag, anicteric sclera Mouth: no lip lesion, mucus membranes dry Cardiovascular: S1S2 reg, no murmur, positive posterior tibial pulse bilateral, Lungs: Dimminished course bs bilateral, + sternal retractions Abdominal: Hypoactive bowel sounds soft, + tender to palpation RLUQ and LLQ, no guarding, no appreciable organomegaly Ext: no gross muscle atrophy, 2+ pitting edema, no contractures Neuro: CN II-XI grossly intact, no focal neuro deficits Psych: Alert, oriented, appropriate affect Assessment: Acute Hypoxic respiratory failure Pneumonia Clinically not in decompensated CHF Plan: Reglan 5 mg IVP X 1, and C/D Haldol (last does 10/21) Stat CBC, CMP, Mg, Phos Upright abdomen review by me without free air under the diaphragm CXR from this AM- bilateral interstitial infiltrates unchanged reviewed by me Change to AirVo Check ABG Recheck for COVID -- consider CT abd and Pelvis if O2 sat stabalizes. Disposition: Remin on 4S, Chair Alarm Notified: Dr. Smith A Total of 33 minutes of critical care time was spent on the complex care of this patient.
[2021-10-23 08:35] LABS: Anion Gap 8 mmol/L
[2021-10-23 08:38] LABS: Carbon Dioxide 41 mmol/L (22-30)
[2021-10-23 08:45] LABS: ABG Base Excess 23.3 mmol/L; ABG Oxygen Saturation 94.8 % (94-97); ABG PH 7.35 (7.35-7.45); ABG PO2 77 mmHg (83-108); ABG TCO2 52 mmol/L (19-24); Allen Test Performed? Yes
[2021-10-23 08:45] LABS: Anisocytosis Slight; Basophils % (A) 1 %; Eosinophils # (A) 0.1 k/uL (0-0.7); Eosinophils % (A) 2 %; HGB 16.3 gm/dL (13.0-17.5); Hypochromasia Marked; Lymphocytes # (A) 1.3 k/uL (1.0-4.8); Lymphocytes % (A) 18 %; MCH 28.2 pg (25.0-35.0); MCHC 28.8 g/dL (31.0-37.0); MCV 98.2 fL (80.0-100.0); Macrocytosis Slight; Mean Platelet Volume 12.7; Monocytes # (A) 0.7 k/uL (0-1.0); Monocytes % (A) 10 %; Neutrophils # (A) 4.8 k/uL (1.3-7.7); Neutrophils % (A) 67 %; Platelet Count 140 k/uL (150-450); Poikilocytosis Slight; RBC 5.77 m/uL (4.30-5.90); RDW 17.8 % (11.5-15.5); WBC 7.1 k/uL (3.8-10.6)
[2021-10-23 08:47] LABS: ABG HCO3 49 mmol/L (21-25); ABG PCO2 90 mmHg (35-45)
[2021-10-23 08:47] LABS: HCT 56.6 % (39.0-53.0)
[2021-10-23 09:26] LABS: Large Platelets Present
[2021-10-23] MEDS: ENOXAPARIN 40 MG/0.4 ML SYRINGE SQ SCH (09:29)
[2021-10-23] MEDS: FAMOTIDINE 20 MG TAB PO SCH (09:34)
[2021-10-23] MEDS: ATORVASTATIN 40 MG TAB PO SCH (09:34)
--- NOTE | 2021-10-23 10:23 | PN ---
PROGRESS NOTE This is a gentleman with underlying Down syndrome, also has obesity and obstructive sleep apnea, possible pneumonia and diastolic heart failure. He had an emesis today and oxygen saturation is in the mid to high 80s. He using BiPAP, but not on a consistent basis. We have diuresed him aggressively and currently he has some contraction alkalosis. I would suggest that we hold the diuresis for the time being, continue his other medications. Overall prognosis remains guarded for this patient with multiple comorbid conditions. Blood pressure is 120/80, pulse rate is 80 per minute, regular. JVD 1 cm. No carotid bruit. S1, S2 heard normally but distantly. Lungs reveal diminished air entry. Abdomen is soft. Lower extremities reveal bilateral edema. Central nervous system grossly no focal deficits. Very limited exam was performed. IMPRESSION: 1. Obstructive sleep apnea with aggressive diuresis, contraction alkalosis. 2. History of Down syndrome. 3. Probable diastolic heart failure. RECOMMENDATIONS: I recommend that we hold the diuretics now and continue with antibiotics and see how he does. Prognosis remains guarded on this patient. Thank you very much for the consult. MMJIGARL / IJN: [id number] /
[2021-10-23] MEDS ORDERED: Potassium Replacement Protocol 1 EACH MISC MISCELLANE PRN (11:03)
[2021-10-23] MEDS: methylPREDNISolone SOD SUCCI 125 MG/2 ML VIAL IV SCH ×2 (12:05→18:15)
[2021-10-23] MEDS: METOCLOPRAMIDE 5 MG/ML 2 ML VIAL IVP SCH ×2 (13:24→18:15)
--- NOTE | 2021-10-23 13:41 | P.PN ---
Subjective Progress Note Date: 10/23/21 This is a pleasant 45-year-old gentleman with a known history of Down syndrome, hyperlipidemia, obstructive sleep apnea but intolerant to CPAP, gastroesophageal reflux disease. He has a poor historian. He was brought into the emergency room yesterday after his family found him to be short of breath with cough and swelling of the lower extremities. He is quite hypoxic on arrival by EMS and was placed on nonrebreather mass. His x-ray reveals evidence of cardiomegaly with diffuse interstitial edema and basilar infiltrates. EKG reveals normal sinus rhythm without acute ST or T wave abnormalities. White count 6.9. Hemoglobin 17.1. Sodium 134. Creatinine 0.65. Lactic acid 1.5. AST 93. ALT 70. ProBNP 2470. Troponin 0.025. Chavira virus by PCR not detected. He was initiated on IV diuretics, antibiotics, bronchodilators and steroids. He is seen today in consultation in the emergency department. He is currently sitting up in a stretcher. Awake and alert in no acute distress. He is requiring 15 L high flow nasal cannula to maintain O2 saturation in the 90s. He's been afebrile. Hemodynamically stable. So far he is diuresed 1300 ML's. Weight 127 kg. On 10/19/2021 patient seen in follow-up on medical surgical floor, this morning his breathing was significantly labored, rapid response team was called, and patient was placed on BiPAP support with pressures of 12 and 5 and FiO2 100%. He continues on IV diuretics, he is currently on Lasix 40 mg every 12 hours, he is diuresing quite extensively, and he is currently in negative 5.3 L net fluid balance over the last 24 hours, lung sounds reveal diffuse crackles and diminished breath sounds, with slightly better aeration at the left lung. Bose catheter is in, and draining large amount of clear yellow urine, patient is aw jemal and alert, he is tolerating BiPAP support quite well, his been afebrile, no complaints of chest pain, his chest x-ray today shows stable bilateral infiltrates and pleural effusion. His pro calcitonin level was negative his antibiotics were discontinued, steroids have been discontinued, patient has been started on nebulized treatments. BMP results have been reviewed showing sodium of 143, potassium is 4.3, chloride is 94, CO2 is 39, BUN of 14, creatinine 0.7. On 10/20/2021 patient seen in follow-up on medical surgical floor. His breathing has significantly improved with diuresis, he is currently off BiPAP support, and on 15 L per high flow nasal cannula, his pulse ox is 94%, breathing very comfortably, lung sounds are diminished, without rales or wheezes, however patient is a shallow breather, he needs encouragement to take deep breaths and cough. No coughing noted, his been afebrile, we added Zosyn for his history of aspiration related to his fast eating habits. However his pro calcitonin level has been negative, but in view of his hypoxia we will cover him with Zosyn empir ically. He is in -3470 mL net fluid balance over the last 24 hours, lower extremity edema is improving, he remains on IV Lasix at 40 mg every 12 hours, he is on DuoNeb nebulized treatments, he is on Pepcid. We'll add Lovenox for DVT prophylaxis, today's labs have been reviewed showing white blood cell count of 9.2, hemoglobin of 16.2, sodium is 140, potassium is 4.1, chloride is 89, CO2 is 38, BUN of 13, creatinine 0.8. No nausea or vomiting, no diarrhea. He is feeling hungry, he would like to eat On 10/22/2021 patient seen in follow-up on medical surgical floor. He is currently on BiPAP of 12 and 500% FiO2, his pulse ox is 95-97%, and his FiO2 will be cut back to 80%, patient has been coming off the BiPAP on 15 L high flow to it however she quickly desaturates, and has to return to BiPAP, otherwise he is breathing comfortably, his lung sounds are diminished, I did not appreciate a ny crackles or wheezing. He remains on IV Lasix 40 mg every 12 hours, And he is in negative 4.6 L net fluid balance over the last 24 hours, lower extremity edema is improving, yesterday chest x-ray showing interval decrease in bilateral airspace and interstitial opacities. On 10/23/2021 patient seen in follow-up on medical surgical floor. Earlier today he was on BiPAP support, with pressures of 12 and 5 and FiO2 of 100%, however he started vomiting, BiPAP was removed, patient was placed on Airvo, he was given a dose of Reglan, rapid response team was called, abdominal x-ray was obtained, showing nonspecific abdomen. he denies any abdominal pain, abdomen is soft, he did have a bowel movement yesterday. Chest x-ray showed patchy perihilar and basilar infiltrates, without significant change. Patient has been extensively diuresed, he is in -2.6 L net fluid balance over the last 24 hours. Resolved volume contraction alkalosis, his CO2 is up to 41, sodium was 135, potassium 3.8, chloride is 86, B1 is 14 creatinine 0.6. Blood gas showed pO2 of 77, pCO2 of 90, pH is 7.35, consistent with chronic hypercapnic respiratory failure. D-dimer was not significantly elevated only 0.82, low stemming Doppler showed no evidence of DVT. No cough, no chest pain, no hemoptysis. The patient is suspected to be aspirating, and she has been on Zosyn for last 48 hours, today's labs show normal white count of 7.1, hemoglobin 16.3 proBNP level was about 265, and this was a significantly improved value from admission which was 2470 Objective - Vital Signs Vital signs: Vital Signs Temp 97.9 F 10/23/21 07:34 Pulse 79 10/23/21 07:34 Resp 19 10/23/21 07:34 BP 120/68 10/23/21 07:34 Pulse Ox 89 L 10/23/21 08:17 Intake & Output 10/22/21 10/23/21 10/23/21 18:59 06:59 18:59 Output Total 1450 1200 Balance -1450 -1200 Output: Urine 1450 1200 Other: Voiding Method Indwelling Catheter Indwelling Catheter # Bowel Movements 1 - Exam GENERAL EXAM: Alert, very pleasant, 45-year-old male with typical features of Down syndrome on currently sitting up in the recliner, had two episodes of vomiting, and was taken off the BiPAP support for that reason, currently on Airvo at 60 L and FiO2 of 90% and nonrebreather mask with a pulse ox of 89-90% breathing comfortably with a pulse ox of 94-95%, comfortable in no apparent distress. HEAD: Normocephalic/atraumatic. EYES: Normal reaction of pupils, equal size. Conjunctiva pink, sclera white. NOSE: Clear with pink turbinates. THROAT: No erythema or exudates. NECK: No masses, no JVD, no thyroid enlargement, no adenopathy. CHEST: No chest wall deformity. Symmetrical expansion. LUNGS: Equal air entry with diminished breath sounds , no crackles or wheezes CVS: Regular rate and rhythm, normal S1 and S2, no gallops, no murmurs, no rubs ABDOMEN: Soft, nontender. No hepatosplenomegaly, normal bowel sounds, no guarding or rigidity. EXTREMITIES: No clubbing, trace pretibial edema, no cyanosis, 2+ pulses and upper and lower extremities. MUSCULOSKELETAL: Muscle strength and tone normal. SPINE: No scoliosis or deformity SKIN: No rashes CENTRAL NERVOUS SYSTEM: Alert and oriented -3. No focal deficits, tone is normal in all 4 extremities. PSYCHIATRIC: Alert and oriented -3. Appropriate affect. Intact judgment and insight. - Labs CBC & Chem 7: 10/23/21 06:38 10/23/21 06:38 Labs: Abnormal Lab Results - Last 24 Hours (Table) 10/22/21 10/23/21 10/23/21 Range/Units 14:19 06:38 06:38 Hct 56.6 H (39.0-53.0) % MCHC 28.8 L (31.0-37.0) g/dL RDW 17.8 H (11.5-15.5) % Plt Count 140 L (150-450) k/uL D-Dimer 0.82 H (<0.60) mg/L FEU ABG pCO2 (35-45) mmHg ABG pO2 (83-108) mmHg ABG HCO3 (21-25) mmol/L ABG Total CO2 (19-24) mmol/L Sodium 135 L (137-145) mmol/L Chloride 86 L (98-107) mmol/L Carbon Dioxide 41 H* (22-30) mmol/L Glucose 103 H (74-99) mg/dL Albumin 3.1 L (3.5-5.0) g/dL 10/23/21 Range/Units 08:38 Hct (39.0-53.0) % MCHC (31.0-37.0) g/dL RDW (11.5-15.5) % Plt Count (150-450) k/uL D-Dimer (<0.60) mg/L FEU ABG pCO2 90 H* (35-45) mmHg ABG pO2 77 L (83-108) mmHg ABG HCO3 49 H* (21-25) mmol/L ABG Total CO2 52 H (19-24) mmol/L Sodium (137-145) mmol/L Chloride (98-107) mmol/L Carbon Dioxide (22-30) mmol/L Glucose (74-99) mg/dL Albumin (3.5-5.0) g/dL Assessment and Plan Plan: Assessment: #1. Acute hypoxic respiratory failure related to acute exacerbation of diastolic CHF, suspected aspiration pneumonia and possible acute lung injury/ARDS. COVID-19 PCR was negative. Pro-calcitonin level was negative however patient does have history of aspiration pneumonia, he is currently empirically covered with Zosyn #2. Dyspnea, and hypoxia, patient required BiPAP support this morning with pressures of 12 and 5 and FiO2 of 100%, initially improved but then worsened and currently patient is on Airvo and a nonrebreather mask #3. Suspect aspiration pneumonitis, with hypoxic respiratory failure #4. Possible acute lung injury/ARDS related to suspected aspiration, add IV steroids, patient has been sufficiently diuresed, and he is on Zosyn for empiric antibiotic coverage #5. History of Down syndrome #6. History of hyperlipidemia #5. History of obstructive sleep apnea, intolerant to CPAP #6. Obesity hypoventilation syndrome #7. Morbid obesity with BMI 48 kg/m #8. Mildly elevated d-dimer, lower extremity Dopplers were negative for DVT, underlying pulmonary embolism is not completely excluded, however patient is not able to travel to computed tomography scan related to high flow oxygen. We'll cover the patient with Lovenox 60 mg twice daily Plan: Continue Airvo at 60 L and 90% and nonrebreather mask Titrate FiO2 to keep O2 sats at or above 85-90% Lasix has been placed on hold as the patient developing volume contraction alkalosis He has been sufficiently diuresed Continue with empiric antibiotics Suspect aspiration related pneumonia/ARDS We will add IV steroids Lower extremity Dopplers were checked for DVT and were negative D-dimer is mildly elevated, possibility of PE is considered however patient is on too much oxygen to safely travel to the computed tomography scan department We will increase the Lovenox to 60 mg twice daily We'll continue to follow his clinical course Does not seem to be in any acute respiratory distress He is awake and alert, oriented 3 Encouraged the patient to take deep breaths and cough Follow-up chest x-ray tomorrow I performed a history & physical examination of the patient and discussed their management with my nurse practitioner, Keyanna Corcoran. I reviewed the nurse practitioner's note and agree with the documented findings and plan of care. Lung sounds are positive for diffuse crackles throughout the lung colon. The findings and the impression was discussed with the patient. I attest to the documentation by the nurse practitioner. Time with Patient: Less than 30
[2021-10-23 14:30] LABS: ABG Base Excess 24.3 mmol/L; ABG Oxygen Saturation 85.1 % (94-97); ABG PH 7.33 (7.35-7.45); ABG TCO2 53 mmol/L (19-24); Allen Test Performed? Yes
[2021-10-23 14:33] LABS: ABG PCO2 95 mmHg (35-45)
[2021-10-23 14:34] LABS: ABG HCO3 50 mmol/L (21-25); ABG PO2 54 mmHg (83-108)
--- NOTE | 2021-10-23 15:59 | P.PN ---
Subjective Progress Note Date: 10/23/21 Patient is evaluated today as this morning sitting up in the chair, he is on Lasix and lisinopril with a heart with a nonrebreather placed on top of it. Patient is hypoxic with oxygen saturation between 80-89% on initial presentation. This morning he was an Ateam due to hypoxia as well as intractible nausea and vomiting. He was given a dose of IV reglan which made him drowsy. He is hard to arouse during my examination, however, I was able to assist the patient to sit forward and take a few deep breaths to which his oxygen staturation increased to 96-97%. Labs from this morning include a white count of 7.1, hemoglobin 16.3, d-dimer yesterday was 0.82, ABGs show a pH of 7.35, pCO2 90, pO2 77, HCO3 49, CO2 52. Sodium today is 135, potassium 3.8, chloride 86, CO2 41, glucose 103, albumin 3.1, repeat Covid PCR is not detected. Pro- calcitonin on admission was negative at 0.09, BNP 265 the 25th. Abdomen x-ray this morning showed nonspecific abdomen, limited treatment, bibasilar infiltrates. Chest x-ray shows patchy perihilar and basilar infiltrates persistent essentially unchanged. Patient was evaluated by cardiology today who is recommending to hold diuretics for now as patient possibly has contraction alkalosis due to aggressive diuresis. Potassium will be replaced today, lasix held. Review of systems is difficult to obtain due to patient's lethargy and oxygen support via Airvo and BiPAP. PHYSICAL EXAMINATION: GENERAL: The patient is alert and oriented x1 is his baseline, appears in mild respiratory distress at the time of my examination. Well developed, well nourished. HEENT: Pupils are round and equally reacting to light. EOMI. No scleral icterus. No conjunctival pallor. Normocephalic, atraumatic. No pharyngeal erythema. No thyromegaly. CARDIOVASCULAR: S1 and S2 present. No murmurs, rubs, or gallops. PULMONARY: Breath sounds appear clear, no crackles or wheezing noted. ABDOMEN: Soft, nontender, nondistended, normoactive bowel sounds. No palpable organomegaly. Obese abdomen MUSCULOSKELETAL: No joint swelling or deformity. EXTREMITIES: No cyanosis, clubbing, Bilateral lower extremity swelling improved NEUROLOGICAL: Gross neurological examination did not reveal any focal deficits. Pt is lethargic, difficult to obtain a focused neuro exam. SKIN: No rashes. Assessment and plan -Acute hypoxic and hypercapnic respiratory failure secondary to congestive heart failure exacerbation and the obesity hypoventilation syndrome, patient was unable to tolerate BiPAP this morning due to nausea and vomiting, he did get a dose of IV reglan which helped the vomiting, and he was tolerating an Airvo at 60L with nonrebreather mask. However, oxygen saturation was marginal and patient was quite lethargic. He was arousable and was following commands to take full deep breaths, monitor respiratory satus closely. Could also be a component of aspiration due to vomiting on BiPAP. -New-onset the congestive heart failure is to have diastolic dysfunction had a normal ejection fraction. -Possibility of contracture alkalosis due to overdiuresis; lasix is no on hold and will continue with IV fluids -Obesity hypoventilation syndrome, not tolerating BiPAP currently -Down syndrome -Gastroesophageal reflux disease -Nausea, vomiting - unknown etiology, unable to complete imaging due to current respiratory status, for now controlled with medication DVT prophylaxis: Lovenox GI: Prophylaxis: Pepcid FULL CODE Plan Encourage to cough and deep breath Monitor oxygen saturation closely Continue on IV antibiotics Increase Lovenox to BID Replace Potassium Repeat labs in AM. Objective - Vital Signs Vital signs: Vital Signs Temp 97.9 F 10/23/21 07:34 Pulse 79 10/23/21 07:34 Resp 19 10/23/21 07:34 BP 120/68 10/23/21 07:34 Pulse Ox 89 L 10/23/21 08:17 Intake & Output 10/22/21 10/23/21 10/23/21 18:59 06:59 18:59 Output Total 1450 1200 Balance -1450 -1200 Output: Urine 1450 1200 Other: Voiding Method Indwelling Catheter Indwelling Catheter # Bowel Movements 1 - Labs CBC & Chem 7: 10/23/21 06:38 10/23/21 06:38 Labs: Abnormal Lab Results - Last 24 Hours (Table) 10/22/21 10/23/21 10/23/21 Range/Units 14:19 06:38 06:38 Hct 56.6 H (39.0-53.0) % MCHC 28.8 L (31.0-37.0) g/dL RDW 17.8 H (11.5-15.5) % Plt Count 140 L (150-450) k/uL D-Dimer 0.82 H (<0.60) mg/L FEU ABG pCO2 (35-45) mmHg ABG pO2 (83-108) mmHg ABG HCO3 (21-25) mmol/L ABG Total CO2 (19-24) mmol/L Sodium 135 L (137-145) mmol/L Chloride 86 L (98-107) mmol/L Carbon Dioxide 41 H* (22-30) mmol/L Glucose 103 H (74-99) mg/dL Albumin 3.1 L (3.5-5.0) g/dL 10/23/21 Range/Units 08:38 Hct (39.0-53.0) % MCHC (31.0-37.0) g/dL RDW (11.5-15.5) % Plt Count (150-450) k/uL D-Dimer (<0.60) mg/L FEU ABG pCO2 90 H* (35-45) mmHg ABG pO2 77 L (83-108) mmHg ABG HCO3 49 H* (21-25) mmol/L ABG Total CO2 52 H (19-24) mmol/L Sodium (137-145) mmol/L Chloride (98-107) mmol/L Carbon Dioxide (22-30) mmol/L Glucose (74-99) mg/dL Albumin (3.5-5.0) g/dL Assessment and Plan Time with Patient: Greater than 30
[2021-10-23 16:26] LABS: Glucose,Whole Blood 155 mg/dL (75-99)
--- NOTE | 2021-10-23 16:29 | CT ---
EXAMINATION TYPE: CT angio chest DATE OF EXAM: 10/23/2021 COMPARISON: 09/12/2016 HISTORY: History of CHF, Down's syndrome, difficulty breathing. CT DLP: 885.1 mGycm CONTRAST: CT chest with contrast and 3D reconstruction with MIP imaging is performed with IV Contrast, patient injected with 100 mL of Isovue 370. Contrast-enhanced CT of the chest was performed through the course of the pulmonary arteries with cecilia g and mediastinal window settings submitted. 3D reconstruction with MIP imaging was also performed. PULMONARY ARTERIES: The pulmonary arteries and their major tributaries are patent. I do not see bryan dence for sizable filling defect to suggest pulmonary embolic process. LUNGS: The lungs are clear and free of infiltrate. No evidence for atelectasis. No pulmonary nodule or mass is detected. No pleural effusion. MEDIASTINUM: Thoracic aorta is of normal caliber,however, evaluation is limited given timing of the contrast bolus. If there is concern for thoracic aortic pathology consider JESSICA. Correlate clinicall y . The heart is not enlarged. No evidence for mediastinal mass. No mediastinal lymph nodes greater than 1cm. HILAR STRUCTURES: No evidence for mass. No hilar lymph nodes greater than 1 cm. UPPER ABDOMEN: No significant abnormality is seen. IMPRESSION: 1. Limited examination without evidence for Pulmonary embolism at this time. 2. Bilateral infiltrates felt to reflect Covid 19 pneumonia.
--- NOTE | 2021-10-23 16:38 | P.EN ---
Repeat A-team. Patient with increasing hypoxia and them became lethargic. Patient went down for CTA to rule out PE. Transferred to ICU, Had been ordered by ICU attending.
[2021-10-23] MEDS: POTASSIUM CHLORIDE 10 MEQ in WATER FOR INJECTION 1 100ML.BAG IVPB SCH ×2 (17:17→19:26)
[2021-10-23] MEDS: FAMOTIDINE 20 MG/2 ML VIAL IV SCH (21:04)
[2021-10-23] MEDS: ENOXAPARIN 60 MG/0.6 ML SYRINGE SQ SCH (21:08)
[2021-10-24] MEDS: METOCLOPRAMIDE 5 MG/ML 2 ML VIAL IVP SCH ×5 (00:13→23:52)
[2021-10-24] MEDS: PIPERACILLIN-TAZOBACTAM 3.375 GM in SODIUM CHLORIDE 0.9% 100 ML IVPB SCH ×4 (00:14→23:53)
[2021-10-24] MEDS: ONDANSETRON 4 MG/2 ML VIAL IVP PRN ×4 (00:14→20:54)
[2021-10-24] MEDS: methylPREDNISolone SOD SUCCI 125 MG/2 ML VIAL IV SCH ×5 (00:14→23:52)
[2021-10-24 06:00] LABS: ALT 20 U/L (4-49); AST 32 U/L (17-59); African American GFR (CKD) >90 (>60 ml/min/1.73 sqM); Albumin 3.1 g/dL (3.5-5.0); Alkaline Phosphatase 85 U/L (38-126); Blood Urea Nitrogen 17 mg/dL (9-20); Calcium 8.6 mg/dL (8.4-10.2); Chloride 86 mmol/L (98-107); Glucose 148 mg/dL (74-99); Magnesium 2.1 mg/dL (1.6-2.3); Non-African American GFR(CKD) >90 (>60 ml/min/1.73 sqM); Potassium 4.3 mmol/L (3.5-5.1); Sodium 134 mmol/L (137-145); Total Bilirubin 0.5 mg/dL (0.2-1.3)
[2021-10-24 06:06] LABS: Anion Gap 7 mmol/L
[2021-10-24 06:26] LABS: Carbon Dioxide 41 mmol/L (22-30)
[2021-10-24 06:53] LABS: Anisocytosis Slight; HCT 53.8 % (39.0-53.0); HGB 15.8 gm/dL (13.0-17.5); Hypochromasia Marked; MCH 28.7 pg (25.0-35.0); MCHC 29.4 g/dL (31.0-37.0); MCV 97.7 fL (80.0-100.0); Macrocytosis Slight; Mean Platelet Volume 12.6; Platelet Count 141 k/uL (150-450); Poikilocytosis Slight; RBC 5.51 m/uL (4.30-5.90); RDW 17.9 % (11.5-15.5); WBC 5.5 k/uL (3.8-10.6)
[2021-10-24 07:19] LABS: Band Neutrophils % 11 %; Lymphocytes # (M) 0.22 k/uL (1.0-4.8); Neutrophils % (M) 85 %; Nucleated Red Blood Cells 0 /100 WBC (0-0); Total Cells Counted 100
[2021-10-24 07:20] LABS: Large Platelets Present
[2021-10-24 07:22] LABS: Polychromasia Present
--- NOTE | 2021-10-24 07:57 | P.PN ---
Subjective Progress Note Date: 10/24/21 Principal diagnosis: Heart failure The patient is a 45-year-old gentleman with Down syndrome was admitted to the hospital with acute hypoxic respiratory failure with underlying pneumonia as well as fluid overload. Subsequently the patient developed change in mental status and for that reason he was transferred to the intensive care unit. In the intensive care unit the blood gases was drawn and we are not too bad. The patient was seen today in the intensive care unit. He is awake. He was sitting in the chair. He is oriented 3. He seems to be somewhat euvolemic on examination. Hemodynamically he is stable. He has been maintaining normal sinus mechanism. Objective - Vital Signs Vital signs: Vital Signs Temp 99 F 10/24/21 00:00 Pulse 68 10/24/21 07:10 Resp 18 10/24/21 07:10 BP 110/54 10/24/21 07:10 Pulse Ox 89 L 10/24/21 07:10 Intake & Output 10/23/21 10/24/21 10/24/21 18:59 06:59 18:59 Intake Total 150 50 Output Total 870 570 50 Balance -720 -520 -50 Weight 126.9 kg 127 kg Intake: IV 150 50 Piperacillin-Tazobactam 3 50 50 .375 gm In Sodium Chloride 0.9% 100 ml @ 25 mls/hr IVPB Q8HR [facility] Rx# :[id number] Potassium Chloride 10 meq 100 In Water For Injection 1 100ml.bag @ 100 mls/hr IVPB Q1H [facility] Rx#: [id number] Output: Urine 870 570 50 Other: Voiding Method Indwelling Catheter Indwelling Catheter - Constitutional General appearance: Present: no acute distress - Respiratory Respiratory: bilateral: diminished - Cardiovascular Rhythm: regular - Labs CBC & Chem 7: 10/24/21 05:33 10/24/21 05:33 Labs: Abnormal Lab Results - Last 24 Hours (Table) 10/23/21 10/23/21 10/23/21 Range/Units 06:38 06:38 08:38 Hct 56.6 H (39.0-53.0) % MCHC 28.8 L (31.0-37.0) g/dL RDW 17.8 H (11.5-15.5) % Plt Count 140 L (150-450) k/uL Lymphocytes # (Manual) (1.0-4.8) k/uL ABG pH (7.35-7.45) ABG pCO2 90 H* (35-45) mmHg ABG pO2 77 L (83-108) mmHg ABG HCO3 49 H* (21-25) mmol/L ABG Total CO2 52 H (19-24) mmol/L ABG O2 Saturation (94-97) % Sodium 135 L (137-145) mmol/L Chloride 86 L (98-107) mmol/L Carbon Dioxide 41 H* (22-30) mmol/L Creatinine (0.66-1.25) mg/dL Glucose 103 H (74-99) mg/dL POC Glucose (mg/dL) (75-99) mg/dL Albumin 3.1 L (3.5-5.0) g/dL 10/23/21 10/23/21 10/24/21 Range/Units 14:27 16:25 05:33 Hct 53.8 H (39.0-53.0) % MCHC 29.4 L (31.0-37.0) g/dL RDW 17.9 H (11.5-15.5) % Plt Count 141 L (150-450) k/uL Lymphocytes # (Manual) 0.22 L (1.0-4.8) k/uL ABG pH 7.33 L (7.35-7.45) ABG pCO2 95 H* (35-45) mmHg ABG pO2 54 L* (83-108) mmHg ABG HCO3 50 H* (21-25) mmol/L ABG Total CO2 53 H (19-24) mmol/L ABG O2 Saturation 85.1 L (94-97) % Sodium (137-145) mmol/L Chloride (98-107) mmol/L Carbon Dioxide (22-30) mmol/L Creatinine (0.66-1.25) mg/dL Glucose (74-99) mg/dL POC Glucose (mg/dL) 155 H (75-99) mg/dL Albumin (3.5-5.0) g/dL 10/24/21 Range/Units 05:33 Hct (39.0-53.0) % MCHC (31.0-37.0) g/dL RDW (11.5-15.5) % Plt Count (150-450) k/uL Lymphocytes # (Manual) (1.0-4.8) k/uL ABG pH (7.35-7.45) ABG pCO2 (35-45) mmHg ABG pO2 (83-108) mmHg ABG HCO3 (21-25) mmol/L ABG Total CO2 (19-24) mmol/L ABG O2 Saturation (94-97) % Sodium 134 L (137-145) mmol/L Chloride 86 L (98-107) mmol/L Carbon Dioxide 41 H* (22-30) mmol/L Creatinine 0.57 L (0.66-1.25) mg/dL Glucose 148 H (74-99) mg/dL POC Glucose (mg/dL) (75-99) mg/dL Albumin 3.1 L (3.5-5.0) g/dL Assessment and Plan Assessment: Assessment #1 acute hypoxic respiratory failure which has improved #2 possible underlying pneumonia #3 heart failure exacerbation. Currently he is euvolemic #4 history of Down syndrome #5 multiple comorbid conditions including sleep apnea Plan #1 the patient seems to be euvolemic #2 hemodynamically he is stable #3 I would continue the current medical regimen at this point #4 the potentially can be transferred out of the intensive care unit
--- NOTE | 2021-10-24 08:00 | XR ---
EXAMINATION TYPE: XR chest 1V DATE OF EXAM: 10/24/2021 COMPARISON: 10/23/2021 HISTORY: Chest pain TECHNIQUE: Single frontal view of the chest is obtained. FINDINGS: Perihilar and basilar infiltrates persist unchanged. The cardiac silhouette size is within normal limits. The osseous structures are intact. IMPRESSION: 1. Perihilar and basilar infiltrates persist unchanged.
[2021-10-24] MEDS: FAMOTIDINE 20 MG/2 ML VIAL IV SCH ×2 (08:53→20:53)
[2021-10-24] MEDS: ATORVASTATIN 40 MG TAB PO SCH ×2 (08:53→10:24)
[2021-10-24] MEDS: IPRATROPIUM-ALBUTEROL 3 ML NEB INHALATION SCH ×4 (09:12→20:51)
[2021-10-24] MEDS: ENOXAPARIN 60 MG/0.6 ML SYRINGE SQ SCH (10:26)
--- NOTE | 2021-10-24 10:27 | XR ---
EXAMINATION TYPE: XR chest 1V portable DATE OF EXAM: 10/24/2021 COMPARISON: 10/24/2021 HISTORY: Chest pain TECHNIQUE: Single frontal view of the chest is obtained. FINDINGS: Right-sided PICC line is noted to be in place with its distal tip overlying the SVC. Patchy perihilar and basilar infiltrates compatible with Covid 19 pneumonia. The cardiac silhouette size is within normal limits. The osseous structures are intact. IMPRESSION: 1. Patchy perihilar and basilar infiltrates compatible with Covid 19 pneumonia.
--- NOTE | 2021-10-24 10:28 | IR ---
PICC LINE PLACEMENT: HISTORY: Infection requiring long-term antibiotic therapy PROCEDURE: Ultrasound guidance of PICC line placement. COMPLICATIONS: None ANESTHESIA: 1. 1% Lidocaine locally. FINDINGS/TECHNIQUE: The procedure was explained to the patient. The risks, complications, benefits and alternatives were discussed and any questions were answered. Informed consent was obtained. The patient was placed supine on the fluoroscopic table and prepped and draped in the usual sterile fash ion. Utilizing a 21 gauge needle and sonographic guidance, access in the right basilic vein was ach ieved and there is placement of a 0.018 guidewire. The vein is patent. A 5-F. sheath was placed ove r the guidewire. The guidewire and dilator were removed and a 5-F. Double lumen PICC line was placed through the sheath with the chest x-ray confirming the tip at the level of the SVC. The sheath was removed, the catheter was flushed and sutured into position. The patient was stable throughout the p rocedure and remained stable upon discharge from the Department of Radiology. The vein puncture was patent under ultrasound. A norton scale image was obtained to document patency of the vein punctured. All elements of the maximal barrier technique were utilized. IMPRESSION: 1. Successful PICC line placement under ultrasound performed bedside within the ICU.
--- NOTE | 2021-10-24 13:26 | P.PN ---
Subjective Progress Note Date: 10/24/21 Principal diagnosis: Acute hypoxic and hypercapnic respiratory failure secondary aspiration pneumonia and acute exacerbation of diastolic congestive heart failure also related to o besity/hypoventilation syndrome. This is a pleasant 45-year-old gentleman with a known history of Down syndrome, hyperlipidemia, obstructive sleep apnea but intolerant to CPAP, gastroesophageal reflux disease. He has a poor historian. He was brought into the emergency room yesterday after his family found him to be short of breath with cough and swelling of the lower extremities. He is quite hypoxic on arrival by EMS and was placed on nonrebreather mass. His x-ray reveals evidence of cardiomegaly with diffuse interstitial edema and basilar infiltrates. EKG reveals normal sinus rhythm without acute ST or T wave abnormalities. White count 6.9. Hemoglobin 17.1. Sodium 134. Creatinine 0.65. Lactic acid 1.5. AST 93. ALT 70. ProBNP 2470. Troponin 0.025. Chavira virus by PCR not detected. He was initiated on IV diuretics, antibiotics, bronchodilators and steroids. He is seen today in consultation in the emergency department. He is currently sitting up in a stretcher. Awake and alert in no acute distress. He is requiring 15 L high flow nasal cannula to maintain O2 saturation in the 90s. He's been afebrile. Hemodynamically stable. So far he is diuresed 1300 ML's. Weight 127 kg. On 10/19/2021 patient seen in follow-up on medical surgical floor, this morning his breathing was significantly labored, rapid response team was called, and patient was placed on BiPAP support with pressures of 12 and 5 and FiO2 100%. He continues on IV diuretics, he is currently on Lasix 40 mg every 12 hours, he is diuresing quite extensively, and he is currently in negative 5.3 L net fluid balance over the last 24 hours, lung sounds reveal diffuse crackles and diminished breath sounds, with slightly better aeration at the left lung. Bose catheter is in, and draining large amount of clear yellow urine, patient is awake and alert, he is tolerating BiPAP support quite well, his been afebrile, no complaints of chest pain, his chest x-ray today shows stable bilateral infiltrates and pleural effusion. His pro calcitonin level was negative his antibiotics were discontinued, steroids have been discontinued, patient has been started on nebulized treatments. BMP results have been reviewed showing sodium of 143, potassium is 4.3, chloride is 94, CO2 is 39, BUN of 14, creatinine 0.7. On 10/20/2021 patient seen in follow-up on medical surgical floor. His breathing has significantly improved with diuresis, he is currently off BiPAP support, and on 15 L per high flow nasal cannula, his pulse ox is 94%, breathing very comfortably, lung sounds are diminished, without rales or wheezes, however patient is a shallow breather, he needs encouragement to take deep breaths and cough. No coughing noted, his been afebrile, we added Zosyn for his history of aspiration related to his fast eating habits. However his pro calcitonin level has been negative, but in view of his hypoxia we will cover him with Zosyn empirically. He is in -3470 mL net fluid balance over the last 24 hours, lower extremity edema is improving, he remains on IV Lasix at 40 mg every 12 hours, he is on DuoNeb nebulized treatments, he is on Pepcid. We'll add Lovenox for DVT prophylaxis, today's labs have been reviewed showing white blood cell count of 9.2, hemoglobin of 16.2, sodium is 140, potassium is 4.1, chloride is 89, CO2 is 38, BUN of 13, creatinine 0.8. No nausea or vomiting, no diarrhea. He is feeling hungry, he would like to eat Reevaluated today on 10/21/21, patient is back on BiPAP today. And he is on the percent FiO2 feeling better breathing easier, but had a bit of a setback and requiring more FiO2 to maintain adequate oxygenation. Patient remains on diuretics, remains on antibiotics empirically, furosemide is at 40 mg IV push every 12 hours. Patient is marginal at best. He is not a great historian but he does not seem to be in distress on BiPAP. Labs today showed BNP level of 265, his blood sugar was 180. WBC count is 9.4. On 10/22/2021 patient seen in follow-up on medical surgical floor. He is currently on BiPAP of 12 and 500% FiO2, his pulse ox is 95-97%, and his FiO2 will be cut back to 80%, patient has been coming off the BiPAP on 15 L high flow to it however she quickly desaturates, and has to return to BiPAP, otherwise he is breathing comfortably, his lung sounds are diminished, I did not appreciate any crackles or wheezing. He remains on IV Lasix 40 mg every 12 hours, And he is in negative 4.6 L net fluid balance over the last 24 hours, lower extremity edema is improving, yesterday chest x-ray showing interval decrease in bilateral airspace and interstitial opacities. On 10/23/2021 patient seen in follow-up on medical surgical floor. Earlier today he was on BiPAP support, with pressures of 12 and 5 and FiO2 of 100%, however he started vomiting, BiPAP was removed, patient was placed on Airvo, he was given a dose of Reglan, rapid response team was called, abdominal x-ray was obtained, showing nonspecific abdomen. he denies any abdominal pain, abdomen is soft, he did have a bowel movement yesterday. Chest x-ray showed patchy p erihilar and basilar infiltrates, without significant change. Patient has been extensively diuresed, he is in -2.6 L net fluid balance over the last 24 hours. Resolved volume contraction alkalosis, his CO2 is up to 41, sodium was 135, potassium 3.8, chloride is 86, B1 is 14 creatinine 0.6. Blood gas showed pO2 of 77, pCO2 of 90, pH is 7.35, consistent with chronic hypercapnic respiratory failure. D-dimer was not significantly elevated only 0.82, low stemming Doppler showed no evidence of DVT. No cough, no chest pain, no hemoptysis. The patient is suspected to be aspirating, and she has been on Zosyn for last 48 hours, today's labs show normal white count of 7.1, hemoglobin 16.3 proBNP level was about 265, and this was a significantly improved value from admission which was 2470 Reevaluated today on 10/24/21, patient is now in the ICU, placed back on BiPAP 16/800%, patient was noted to be placed on non-rebreather mask and airvo last night, and the patient is noted to be a bit lethargic but arousable. I recommended immediate placement on BiPAP, and this was done. His CT angiogram of the chest done yesterday and no evidence of pulmonary embolism as expected however it did show bilateral infiltrates, and I'm still suspicious that the patient is developing aspiration pneumonia as he did in the past. Patient does have a chronic history of aspiration pneumonia. WBC count today is 5.5 hemoglobin is 15.8. Normal basic metabolic profile is normal renal profile is normal bicarb is 41. Patient remains on updrafts, is also on Lovenox extremely milligrams twice a day and I will cut it down to 40 mg subcu daily remains on methylprednisolone, and he is also on Zosyn. Objective - Vital Signs Vital signs: Vital Signs Temp 99.2 F 10/24/21 09:00 Pulse 71 10/24/21 12:00 Resp 22 10/24/21 12:00 BP 137/112 10/24/21 12:00 Pulse Ox 89 L 10/24/21 12:00 Intake & Output 10/23/21 10/24/21 10/24/21 18:59 06:59 18:59 Intake Total 150 50 100 Output Total 870 570 380 Balance -690 -520 -538 Weight 126.9 kg 127 kg Intake: IV 150 50 100 Piperacillin-Tazobactam 3 50 50 100 .375 gm In Sodium Chloride 0.9% 100 ml @ 25 mls/hr IVPB Q8HR [facility] Rx# :[id number] Potassium Chloride 10 meq 100 In Water For Injection 1 100ml.bag @ 100 mls/hr IVPB Q1H [facility] Rx#: [id number] Output: Urine 870 570 380 Other: Voiding Method Indwelling Catheter Indwelling Catheter Indwelling Catheter - Exam Physical Exam: Revealed 45-year-old white male obese on BiPAP in no distress. Head: Atraumatic normocephalic. HEENT:[Neck is supple.] [No neck masses.] [No thyromegaly.] [No JVD.] Chest: [Symmetrical chest expansion crackles at the bases. Cardiac Exam: [Normal S1 and S2, no S3 gallop, no murmur.] Abdomen: [Soft, nontender, no megaly, no rebound, no guarding, normal bowel sounds.] Extremities: [No clubbing, no edema, no cyanosis.] Neurological Exam: [No focal neurologic deficit.] Musculoskeletal no deformities and no limitation in range of motion. - Labs CBC & Chem 7: 10/24/21 05:33 10/24/21 05:33 Labs: Abnormal Lab Results - Last 24 Hours (Table) 10/23/21 10/23/21 10/24/21 Range/Units 14:27 16:25 05:33 Hct 53.8 H (39.0-53.0) % MCHC 29.4 L (31.0-37.0) g/dL RDW 17.9 H (11.5-15.5) % Plt Count 141 L (150-450) k/uL Lymphocytes # (Manual) 0.22 L (1.0-4.8) k/uL ABG pH 7.33 L (7.35-7.45) ABG pCO2 95 H* (35-45) mmHg ABG pO2 54 L* (83-108) mmHg ABG HCO3 50 H* (21-25) mmol/L ABG Total CO2 53 H (19-24) mmol/L ABG O2 Saturation 85.1 L (94-97) % Sodium (137-145) mmol/L Chloride (98-107) mmol/L Carbon Dioxide (22-30) mmol/L Creatinine (0.66-1.25) mg/dL Glucose (74-99) mg/dL POC Glucose (mg/dL) 155 H (75-99) mg/dL Albumin (3.5-5.0) g/dL 10/24/21 Range/Units 05:33 Hct (39.0-53.0) % MCHC (31.0-37.0) g/dL RDW (11.5-15.5) % Plt Count (150-450) k/uL Lymphocytes # (Manual) (1.0-4.8) k/uL ABG pH (7.35-7.45) ABG pCO2 (35-45) mmHg ABG pO2 (83-108) mmHg ABG HCO3 (21-25) mmol/L ABG Total CO2 (19-24) mmol/L ABG O2 Saturation (94-97) % Sodium 134 L (137-145) mmol/L Chloride 86 L (98-107) mmol/L Carbon Dioxide 41 H* (22-30) mmol/L Creatinine 0.57 L (0.66-1.25) mg/dL Glucose 148 H (74-99) mg/dL POC Glucose (mg/dL) (75-99) mg/dL Albumin 3.1 L (3.5-5.0) g/dL Assessment and Plan Assessment: #1. Acute hypoxic and hypercapnic respiratory failure, multifactorial I believe is mostly related to aspiration pneumonia, acute diastolic congestive heart failure, and obesity/hypoventilation syndrome. #2. Obesity/hypoventilation syndrome #3. History of Down syndrome #4. History of hyperlipidemia #5. History of obstructive sleep apnea, intolerant to CPAP #6 strongly suspect aspiration pneumonia. #7. Morbid obesity with BMI 48 kg/m Recommendation: Continue BiPAP and titrate accordingly Continue bronchodilators and continue methylprednisolone Continue GI prophylaxis Continue to monitor in the ICU, patient's clinical status is marginal at best. Continue diuretics. Continue antibiotics. Zosyn. Continue updrafts. Continue Lovenox. Continue GI prophylaxis. We will continue to follow. Time with Patient: Greater than 30
--- NOTE | 2021-10-24 14:18 | P.PN ---
Subjective Progress Note Date: 10/24/21 Patient is evaluated today as this morning sitting up in the chair, he is on Lasix and lisinopril with a heart with a nonrebreather placed on top of it. Patient is hypoxic with oxygen saturation between 80-89% on initial presentation. This morning he was an Ateam due to hypoxia as well as intractible nausea and vomiting. He was given a dose of IV reglan which made him drowsy. He is hard to arouse during my examination, however, I was able to assist the patient to sit forward and take a few deep breaths to which his oxygen staturation increased to 96-97%. Labs from this morning include a white count of 7.1, hemoglobin 16.3, d-dimer yesterday was 0.82, ABGs show a pH of 7.35, pCO2 90, pO2 77, HCO3 49, CO2 52. Sodium today is 135, potassium 3.8, chloride 86, CO2 41, glucose 103, albumin 3.1, repeat Covid PCR is not detected. Pro- calcitonin on admission was negative at 0.09, BNP 265 the 25th. Abdomen x-ray this morning showed nonspecific abdomen, limited treatment, bibasilar infiltrates. Chest x-ray shows patchy perihilar and basilar infiltrates persistent essentially unchanged. Patient was evaluated by cardiology today who is recommending to hold diuretics for now as patient possibly has contraction alkalosis due to aggressive diuresis. Potassium will be replaced today, lasix held. 10/23/2021 Patient evaluated today in bed in the ICU. He is awake and alert this morning. He is on BiPAP 100%, he did have another episode of nausea vomiting per nurse at the bedside. Vitals today afebrile, heart rate 74, blood pressure 111/65, 93% oxygen saturation. Labs reviewed today show a WBC of 5.5, platelet count 141, sodium 134, potassium 4.3, chloride 86, CO2 41, creatinine 0.57, glucose 148, albumin 3.1. Repeat chest xray today shows patchy perihilar and basilar infiltrates compatible with COVID 19 pneumonia. Although his COVID PCR has been negative x2 this admission. Continues on IV pepcid, IV solu-medrol, IV zosyn, lovenox, and bronchodilators. He is being followed closely by pulmonary/pathology secretary. Review of systems is difficult to obtain due to patient's lethargy and oxygen support via BiPAP. PHYSICAL EXAMINATION: GENERAL: The patient is alert and oriented x1 is his baseline, appears in mild respiratory distress at the time of my examination. Well developed, well no urished. on BiPAP. HEENT: Pupils are round and equally reacting to light. EOMI. No scleral icterus. No conjunctival pallor. Normocephalic, atraumatic. No pharyngeal erythema. No thyromegaly. CARDIOVASCULAR: S1 and S2 present. No murmurs, rubs, or gallops. PULMONARY: Breath sounds crackles in the bases ABDOMEN: Soft, nontender, nondistended, normoactive bowel sounds. No palpable organomegaly. Obese abdomen MUSCULOSKELETAL: No joint swelling or deformity. EXTREMITIES: No cyanosis, clubbing, Bilateral lower extremity swelling improved NEUROLOGICAL: Gross neurological examination did not reveal any focal deficits. Pt is lethargic, difficult to obtain a focused neuro exam. SKIN: No rashes. Assessment and plan -Acute hypoxic and hypercapnic respiratory failure secondary to aspiration pneumonia, and obesity hypoventilation syndrome, and acute diastolic congestive heart failure. -New-onset the congestive heart failure is to have diastolic dysfunction had a normal ejection fraction. Lasix currently on hold -Obesity hypoventilation syndrome -History of obstructive sleep apnea; does not tolerate CPAP. -Down syndrome -Gastroesophageal reflux disease -Nausea, vomiting possible due to respiratory alkalosis due to acute hypoxic respiratory failure -Possible aspiration pneumonia secondary to above DVT prophylaxis: Lovenox GI: Prophylaxis: Pepcid FULL CODE Plan Monitor oxygen saturation closely Continue on IV antibiotics Continue IV steroids, bronchodilators Continue all other supporitve care Repeat labs in AM. Objective - Vital Signs Vital signs: Vital Signs Temp 99.2 F 10/24/21 09:00 Pulse 73 10/24/21 11:00 Resp 17 10/24/21 11:00 BP 129/78 10/24/21 11:00 Pulse Ox 89 L 10/24/21 11:00 Intake & Output 10/23/21 10/24/21 10/24/21 18:59 06:59 18:59 Intake Total 150 50 100 Output Total 870 570 300 Balance -720 -520 -200 Weight 126.9 kg 127 kg Intake: IV 150 50 100 Piperacillin-Tazobactam 3 50 50 100 .375 gm In Sodium Chloride 0.9% 100 ml @ 25 mls/hr IVPB Q8HR [facility] Rx# :[id number] Potassium Chloride 10 meq 100 In Water For Injection 1 100ml.bag @ 100 mls/hr IVPB Q1H [facility] Rx#: [id number] Output: Urine 870 570 300 Other: Voiding Method Indwelling Catheter Indwelling Catheter - Labs CBC & Chem 7: 10/24/21 05:33 10/24/21 05:33 Labs: Abnormal Lab Results - Last 24 Hours (Table) 10/23/21 10/23/21 10/24/21 Range/Units 14:27 16:25 05:33 Hct 53.8 H (39.0-53.0) % MCHC 29.4 L (31.0-37.0) g/dL RDW 17.9 H (11.5-15.5) % Plt Count 141 L (150-450) k/uL Lymphocytes # (Manual) 0.22 L (1.0-4.8) k/uL ABG pH 7.33 L (7.35-7.45) ABG pCO2 95 H* (35-45) mmHg ABG pO2 54 L* (83-108) mmHg ABG HCO3 50 H* (21-25) mmol/L ABG Total CO2 53 H (19-24) mmol/L ABG O2 Saturation 85.1 L (94-97) % Sodium (137-145) mmol/L Chloride (98-107) mmol/L Carbon Dioxide (22-30) mmol/L Creatinine (0.66-1.25) mg/dL Glucose (74-99) mg/dL POC Glucose (mg/dL) 155 H (75-99) mg/dL Albumin (3.5-5.0) g/dL 10/24/21 Range/Units 05:33 Hct (39.0-53.0) % MCHC (31.0-37.0) g/dL RDW (11.5-15.5) % Plt Count (150-450) k/uL Lymphocytes # (Manual) (1.0-4.8) k/uL ABG pH (7.35-7.45) ABG pCO2 (35-45) mmHg ABG pO2 (83-108) mmHg ABG HCO3 (21-25) mmol/L ABG Total CO2 (19-24) mmol/L ABG O2 Saturation (94-97) % Sodium 134 L (137-145) mmol/L Chloride 86 L (98-107) mmol/L Carbon Dioxide 41 H* (22-30) mmol/L Creatinine 0.57 L (0.66-1.25) mg/dL Glucose 148 H (74-99) mg/dL POC Glucose (mg/dL) (75-99) mg/dL Albumin 3.1 L (3.5-5.0) g/dL
[2021-10-24] MEDS: SODIUM CHLORIDE 0.9% 1,000 ML IV SCH ×2 (16:58→23:53)
[2021-10-25 05:49] LABS: Anisocytosis Slight; Basophils % (A) 0 %; Eosinophils % (A) 0 %; HCT 52.3 % (39.0-53.0); Hypochromasia Marked; Lymphocytes # (A) 0.7 k/uL (1.0-4.8); Lymphocytes % (A) 12 %; MCH 29.5 pg (25.0-35.0); MCHC 30.6 g/dL (31.0-37.0); MCV 96.6 fL (80.0-100.0); Macrocytosis Slight; Monocytes # (A) 0.3 k/uL (0-1.0); Monocytes % (A) 5 %; Neutrophils # (A) 4.8 k/uL (1.3-7.7); Neutrophils % (A) 82 %; Platelet Count 162 k/uL (150-450); Poikilocytosis Slight; RBC 5.42 m/uL (4.30-5.90); WBC 5.9 k/uL (3.8-10.6)
[2021-10-25 06:07] LABS: African American GFR (CKD) >90 (>60 ml/min/1.73 sqM); Blood Urea Nitrogen 21 mg/dL (9-20); Chloride 89 mmol/L (98-107); Glucose 169 mg/dL (74-99); Non-African American GFR(CKD) >90 (>60 ml/min/1.73 sqM); Potassium 4.1 mmol/L (3.5-5.1); Sodium 134 mmol/L (137-145)
[2021-10-25 06:14] LABS: Anion Gap 6 mmol/L; Carbon Dioxide 39 mmol/L (22-30)
[2021-10-25] MEDS: methylPREDNISolone SOD SUCCI 125 MG/2 ML VIAL IV SCH ×4 (06:16→23:25)
[2021-10-25] MEDS: METOCLOPRAMIDE 5 MG/ML 2 ML VIAL IVP SCH ×4 (06:16→23:26)
[2021-10-25] MEDS: IPRATROPIUM-ALBUTEROL 3 ML NEB INHALATION SCH ×4 (07:44→21:00)
--- NOTE | 2021-10-25 08:05 | XR ---
EXAMINATION TYPE: XR chest 1V portable DATE OF EXAM: 10/25/2021 COMPARISON: 10/24/2021 HISTORY: SOB, Follow Up FINDINGS: Indwelling tubes and catheters are unchanged. Progressive basilar infiltrates and small effusions. Stable appearance of the cardio-mediastinal structures at this time. Pleural effusion unchanged. IMPRESSION: 1. Progressive basilar infiltrates and small effusions.
[2021-10-25] MEDS: PIPERACILLIN-TAZOBACTAM 3.375 GM in SODIUM CHLORIDE 0.9% 100 ML IVPB SCH ×3 (09:15→23:25)
[2021-10-25] MEDS: ATORVASTATIN 40 MG TAB PO SCH (09:26)
[2021-10-25] MEDS: FAMOTIDINE 20 MG/2 ML VIAL IV SCH ×2 (09:26→22:06)
[2021-10-25] MEDS: ENOXAPARIN 60 MG/0.6 ML SYRINGE SQ SCH (09:27)
[2021-10-25] MEDS: ONDANSETRON 4 MG/2 ML VIAL IVP PRN ×2 (11:27)
--- NOTE | 2021-10-25 13:45 | P.PN ---
Subjective Progress Note Date: 10/25/21 Principal diagnosis: Heart failure The patient is a 45-year-old gentleman with Down syndrome was admitted to the hospital with acute hypoxic respiratory failure with underlying pneumonia as well as fluid overload. Subsequently the patient developed change in mental status and for that reason he was transferred to the intensive care unit. The patient was seen in the intensive care unit today. He is slightly lethargic disease able to insert midportion. He seems to be euvolemic on examination. The chest x-ray showed small bilateral pleural effusions. From a cardiovascular standpoint of view, we will continue the current medical regimen. No need for any cardiac workup or intervention at this point. Follow-up with the patient on when necessary Objective - Vital Signs Vital signs: Vital Signs Temp 98.3 F 10/25/21 12:00 Pulse 71 10/25/21 12:00 Resp 26 H 10/25/21 12:00 BP 125/104 10/25/21 12:00 Pulse Ox 88 L 10/25/21 12:00 Intake & Output 10/24/21 10/25/21 10/25/21 18:59 06:59 18:59 Intake Total 325 1075 265 Output Total 555 660 210 Balance -230 415 55 Weight 128 kg 128 kg Intake: IV 100 Piperacillin-Tazobactam 3 100 .375 gm In Sodium Chloride 0.9% 100 ml @ 25 mls/hr IVPB Q8HR [facility] Rx# :[id number] Intake, IV Titration 225 1075 265 Amount Piperacillin-Tazobactam 3 100 .375 gm In Sodium Chloride 0.9% 100 ml @ 25 mls/hr IVPB Q8HR [facility] Rx# :[id number] Sodium Chloride 0.9% 1, 225 975 265 000 ml @ 25 mls/hr IV . Q24H [facility] Rx#:[id number] Output: Urine 555 660 210 Other: Voiding Method Indwelling Catheter Indwelling Catheter Indwelling Catheter - Respiratory Respiratory: bilateral: diminished - Cardiovascular Rhythm: regular - Labs CBC & Chem 7: 10/25/21 05:23 10/25/21 05:23 Labs: Abnormal Lab Results - Last 24 Hours (Table) 10/25/21 10/25/21 Range/Units 05:23 05:23 MCHC 30.6 L (31.0-37.0) g/dL RDW 18.0 H (11.5-15.5) % Lymphocytes # 0.7 L (1.0-4.8) k/uL Sodium 134 L (137-145) mmol/L Chloride 89 L (98-107) mmol/L Carbon Dioxide 39 H (22-30) mmol/L BUN 21 H (9-20) mg/dL Creatinine 0.61 L (0.66-1.25) mg/dL Glucose 169 H (74-99) mg/dL Assessment and Plan Assessment: Assessment #1 acute hypoxic respiratory failure which has improved #2 possible underlying pneumonia #3 heart failure exacerbation. Currently he is euvolemic #4 history of Down syndrome #5 multiple comorbid conditions including sleep apnea Plan #1 the patient seems to be euvolemic #2 hemodynamically he is stable #3 I would continue the current medical regimen at this point #4 follow-up with the patient on when necessary case
--- NOTE | 2021-10-25 14:34 | P.PN ---
Subjective Progress Note Date: 10/25/21 Principal diagnosis: Acute hypoxic and hypercapnic respiratory failure secondary aspiration pneumonia and acute exacerbation of diastolic congestive heart failure also related to o besity/hypoventilation syndrome. This is a pleasant 45-year-old gentleman with a known history of Down syndrome, hyperlipidemia, obstructive sleep apnea but intolerant to CPAP, gastroesophageal reflux disease. He has a poor historian. He was brought into the emergency room yesterday after his family found him to be short of breath with cough and swelling of the lower extremities. He is quite hypoxic on arrival by EMS and was placed on nonrebreather mass. His x-ray reveals evidence of cardiomegaly with diffuse interstitial edema and basilar infiltrates. EKG reveals normal sinus rhythm without acute ST or T wave abnormalities. White count 6.9. Hemoglobin 17.1. Sodium 134. Creatinine 0.65. Lactic acid 1.5. AST 93. ALT 70. ProBNP 2470. Troponin 0.025. Chavira virus by PCR not detected. He was initiated on IV diuretics, antibiotics, bronchodilators and steroids. He is seen today in consultation in the emergency department. He is currently sitting up in a stretcher. Awake and alert in no acute distress. He is requiring 15 L high flow nasal cannula to maintain O2 saturation in the 90s. He's been afebrile. Hemodynamically stable. So far he is diuresed 1300 ML's. Weight 127 kg. On 10/19/2021 patient seen in follow-up on medical surgical floor, this morning his breathing was significantly labored, rapid response team was called, and patient was placed on BiPAP support with pressures of 12 and 5 and FiO2 100%. He continues on IV diuretics, he is currently on Lasix 40 mg every 12 hours, he is diuresing quite extensively, and he is currently in negative 5.3 L net fluid balance over the last 24 hours, lung sounds reveal diffuse crackles and diminished breath sounds, with slightly better aeration at the left lung. Bose catheter is in, and draining large amount of clear yellow urine, patient is awake and alert, he is tolerating BiPAP support quite well, his been afebrile, no complaints of chest pain, his chest x-ray today shows stable bilateral infiltrates and pleural effusion. His pro calcitonin level was negative his antibiotics were discontinued, steroids have been discontinued, patient has been started on nebulized treatments. BMP results have been reviewed showing sodium of 143, potassium is 4.3, chloride is 94, CO2 is 39, BUN of 14, creatinine 0.7. On 10/20/2021 patient seen in follow-up on medical surgical floor. His breathing has significantly improved with diuresis, he is currently off BiPAP support, and on 15 L per high flow nasal cannula, his pulse ox is 94%, breathing very comfortably, lung sounds are diminished, without rales or wheezes, however patient is a shallow breather, he needs encouragement to take deep breaths and cough. No coughing noted, his been afebrile, we added Zosyn for his history of aspiration related to his fast eating habits. However his pro calcitonin level has been negative, but in view of his hypoxia we will cover him with Zosyn empirically. He is in -3470 mL net fluid balance over the last 24 hours, lower extremity edema is improving, he remains on IV Lasix at 40 mg every 12 hours, he is on DuoNeb nebulized treatments, he is on Pepcid. We'll add Lovenox for DVT prophylaxis, today's labs have been reviewed showing white blood cell count of 9.2, hemoglobin of 16.2, sodium is 140, potassium is 4.1, chloride is 89, CO2 is 38, BUN of 13, creatinine 0.8. No nausea or vomiting, no diarrhea. He is feeling hungry, he would like to eat Reevaluated today on 10/21/21, patient is back on BiPAP today. And he is on the percent FiO2 feeling better breathing easier, but had a bit of a setback and requiring more FiO2 to maintain adequate oxygenation. Patient remains on diuretics, remains on antibiotics empirically, furosemide is at 40 mg IV push every 12 hours. Patient is marginal at best. He is not a great historian but he does not seem to be in distress on BiPAP. Labs today showed BNP level of 265, his blood sugar was 180. WBC count is 9.4. On 10/22/2021 patient seen in follow-up on medical surgical floor. He is currently on BiPAP of 12 and 500% FiO2, his pulse ox is 95-97%, and his FiO2 will be cut back to 80%, patient has been coming off the BiPAP on 15 L high flow to it however she quickly desaturates, and has to return to BiPAP, otherwise he is breathing comfortably, his lung sounds are diminished, I did not appreciate any crackles or wheezing. He remains on IV Lasix 40 mg every 12 hours, And he is in negative 4.6 L net fluid balance over the last 24 hours, lower extremity edema is improving, yesterday chest x-ray showing interval decrease in bilateral airspace and interstitial opacities. On 10/23/2021 patient seen in follow-up on medical surgical floor. Earlier today he was on BiPAP support, with pressures of 12 and 5 and FiO2 of 100%, however he started vomiting, BiPAP was removed, patient was placed on Airvo, he was given a dose of Reglan, rapid response team was called, abdominal x-ray was obtained, showing nonspecific abdomen. he denies any abdominal pain, abdomen is soft, he did have a bowel movement yesterday. Chest x-ray showed patchy p erihilar and basilar infiltrates, without significant change. Patient has been extensively diuresed, he is in -2.6 L net fluid balance over the last 24 hours. Resolved volume contraction alkalosis, his CO2 is up to 41, sodium was 135, potassium 3.8, chloride is 86, B1 is 14 creatinine 0.6. Blood gas showed pO2 of 77, pCO2 of 90, pH is 7.35, consistent with chronic hypercapnic respiratory failure. D-dimer was not significantly elevated only 0.82, low stemming Doppler showed no evidence of DVT. No cough, no chest pain, no hemoptysis. The patient is suspected to be aspirating, and she has been on Zosyn for last 48 hours, today's labs show normal white count of 7.1, hemoglobin 16.3 proBNP level was about 265, and this was a significantly improved value from admission which was 2470 Reevaluated today on 10/24/21, patient is now in the ICU, placed back on BiPAP 16/800%, patient was noted to be placed on non-rebreather mask and airvo last night, and the patient is noted to be a bit lethargic but arousable. I recommended immediate placement on BiPAP, and this was done. His CT angiogram of the chest done yesterday and no evidence of pulmonary embolism as expected however it did show bilateral infiltrates, and I'm still suspicious that the patient is developing aspiration pneumonia as he did in the past. Patient does have a chronic history of aspiration pneumonia. WBC count today is 5.5 hemoglobin is 15.8. Normal basic metabolic profile is normal renal profile is normal bicarb is 41. Patient remains on updrafts, is also on Lovenox extremely milligrams twice a day and I will cut it down to 40 mg subcu daily remains on methylprednisolone, and he is also on Zosyn. Reevaluated today on 10/25/21, remains in the ICU, sitting at a bedside chair, remains on BiPAP, he is on 100% FiO2, IPAP of 16 and EPAP of 8, patient seems to be comfortable and he is not in distress. I recommended tapering down his FiO2 however the patient is to stay on BiPAP, and is to stay in the ICU for today. Chest x-ray continues show by basilar airspace disease and atelectasis. CBC is relatively normal, basic metabolic profile is normal bicarb is 39. ABG prior to transferring the patient to the ICU on BiPAP showed a pO2 of 54 pCO2 95 pH of 7.33 and this was 2 days ago. Objective - Vital Signs Vital signs: Vital Signs Temp 98.3 F 10/25/21 12:00 Pulse 75 10/25/21 13:00 Resp 29 H 10/25/21 13:00 BP 127/65 10/25/21 13:00 Pulse Ox 86 L 10/25/21 13:00 Intake & Output 10/24/21 10/25/21 10/25/21 18:59 06:59 18:59 Intake Total 325 1075 265 Output Total 555 660 210 Balance -230 415 55 Weight 128 kg 128 kg Intake: IV 100 Piperacillin-Tazobactam 3 100 .375 gm In Sodium Chloride 0.9% 100 ml @ 25 mls/hr IVPB Q8HR [facility] Rx# :[id number] Intake, IV Titration 225 1075 265 Amount Piperacillin-Tazobactam 3 100 .375 gm In Sodium Chloride 0.9% 100 ml @ 25 mls/hr IVPB Q8HR [facility] Rx# :[id number] Sodium Chloride 0.9% 1, 225 975 265 000 ml @ 25 mls/hr IV . Q24H [facility] Rx#:[id number] Output: Urine 555 660 210 Other: Voiding Method Indwelling Catheter Indwelling Catheter Indwelling Catheter - Exam Physical Exam: Revealed 45-year-old white male obese on BiPAP in no distress. Head: Atraumatic normocephalic. HEENT:[Neck is supple.] [No neck masses.] [No thyromegaly.] [No JVD.] Chest: [Symmetrical chest expansion crackles at the bases. Cardiac Exam: [Normal S1 and S2, no S3 gallop, no murmur.] Abdomen: [Soft, nontender, no megaly, no rebound, no guarding, normal bowel sounds.] Extremities: [No clubbing, no edema, no cyanosis.] Neurological Exam: [No focal neurologic deficit.] Musculoskeletal no deformities and no limitation in range of motion. - Labs CBC & Chem 7: 10/25/21 05:23 10/25/21 05:23 Labs: Abnormal Lab Results - Last 24 Hours (Table) 10/25/21 10/25/21 Range/Units 05:23 05:23 MCHC 30.6 L (31.0-37.0) g/dL RDW 18.0 H (11.5-15.5) % Lymphocytes # 0.7 L (1.0-4.8) k/uL Sodium 134 L (137-145) mmol/L Chloride 89 L (98-107) mmol/L Carbon Dioxide 39 H (22-30) mmol/L BUN 21 H (9-20) mg/dL Creatinine 0.61 L (0.66-1.25) mg/dL Glucose 169 H (74-99) mg/dL Assessment and Plan Assessment: #1. Acute hypoxic and hypercapnic respiratory failure, multifactorial I believe is mostly related to aspiration pneumonia, acute diastolic congestive heart failure, and obesity/hypoventilation syndrome. #2. Obesity/hypoventilation syndrome #3. History of Down syndrome #4. History of hyperlipidemia #5. History of obstructive sleep apnea, intolerant to CPAP #6 strongly suspect aspiration pneumonia. And I suspect that the patient may have developed even acute lung injury from aspiration pneumonia. #7. Morbid obesity with BMI 48 kg/m Recommendation: Continue to monitor the patient in the ICU for now. Continue BiPAP and titrate accordingly Continue bronchodilators and continue methylprednisolone Continue GI prophylaxis Continue to monitor in the ICU, patient's clinical status is marginal at best. Continue diuretics. Continue antibiotics. Zosyn. Continue updrafts. Continue Lovenox. Continue GI prophylaxis. We will continue to follow. Time with Patient: Less than 30
[2021-10-25 14:42] LABS: Magnesium 2.2 mg/dL (1.6-2.3); Phosphorus 3.7 mg/dL (2.5-4.5)
[2021-10-25] MEDS: SODIUM CHLORIDE 0.9% 500 ML 500 ML IV SCH (15:22)
[2021-10-25] MEDS ORDERED: MVI, ADULT NO.4 WITH VIT K 10 ML, TRACE (CONC-1ML/DOSE) 1 ML, SODIUM CHLORIDE 4MEQ/ML V... IV SCH ×8 (15:30)
[2021-10-26 04:48] LABS: Ionized Calcium 4.7 mg/dL (4.5-5.3)
[2021-10-26 04:56] LABS: African American GFR (CKD) >90 (>60 ml/min/1.73 sqM); Anion Gap 7 mmol/L; Blood Urea Nitrogen 22 mg/dL (9-20); Calcium 9.4 mg/dL (8.4-10.2); Carbon Dioxide 38 mmol/L (22-30); Chloride 93 mmol/L (98-107); Glucose 171 mg/dL (74-99); Magnesium 2.4 mg/dL (1.6-2.3); Non-African American GFR(CKD) >90 (>60 ml/min/1.73 sqM); Phosphorus 3.6 mg/dL (2.5-4.5); Potassium 4.2 mmol/L (3.5-5.1); Sodium 138 mmol/L (137-145)
[2021-10-26 05:20] LABS: Anisocytosis Slight; HGB 17.9 gm/dL (13.0-17.5); Hypochromasia Marked; MCH 28.8 pg (25.0-35.0); MCHC 30.1 g/dL (31.0-37.0); MCV 95.9 fL (80.0-100.0); Macrocytosis Slight; Mean Platelet Volume 11.1; Platelet Count 185 k/uL (150-450); Poikilocytosis Slight; RDW 18.1 % (11.5-15.5); WBC 5.6 k/uL (3.8-10.6)
[2021-10-26 05:21] LABS: HCT 59.5 % (39.0-53.0)
[2021-10-26] MEDS: METOCLOPRAMIDE 5 MG/ML 2 ML VIAL IVP SCH ×4 (05:22→23:45)
[2021-10-26] MEDS: methylPREDNISolone SOD SUCCI 125 MG/2 ML VIAL IV SCH ×4 (05:24→23:45)
[2021-10-26 06:01] LABS: Anisocytosis (M) Present; Lymphocytes # (M) 0.34 k/uL (1.0-4.8); Monocytes # (M) 0.17 k/uL (0-1.0); Neutrophils % (M) 91 %; Nucleated Red Blood Cells 0 /100 WBC (0-0); Poikilocytosis (M) Present; Total Cells Counted 100
--- NOTE | 2021-10-26 07:57 | XR ---
EXAMINATION TYPE: XR chest 1V portable DATE OF EXAM: 10/26/2021 COMPARISON: 10/25/2021 HISTORY: Chest pain TECHNIQUE: Single frontal view of the chest is obtained. FINDINGS: Patchy perihilar and basilar infiltrates persist with slight interval improvement suggested. Right-si ded PICC line remains in place. The cardiac silhouette size is within normal limits. The osseous structures are intact. IMPRESSION: 1. Patchy perihilar and basilar infiltrates persist with slight interval improvement suggested.
--- NOTE | 2021-10-26 09:04 | P.PN ---
Subjective Progress Note Date: 10/26/21 This is a pleasant 45-year-old gentleman with a known history of Down syndrome, hyperlipidemia, obstructive sleep apnea but intolerant to CPAP, gastroesophageal reflux disease. He has a poor historian. He was brought into the emergency room yesterday after his family found him to be short of breath with cough and swelling of the lower extremities. He is quite hypoxic on arrival by EMS and was placed on nonrebreather mass. His x-ray reveals evidence of cardiomegaly with diffuse interstitial edema and basilar infiltrates. EKG reveals normal sinus rhythm without acute ST or T wave abnormalities. White count 6.9. Hemoglobin 17.1. Sodium 134. Creatinine 0.65. Lactic acid 1.5. AST 93. ALT 70. ProBNP 2470. Troponin 0.025. Chavira virus by PCR not detected. He was initiated on IV diuretics, antibiotics, bronchodilators and steroids. He is seen today in consultation in the emergency department. He is currently sitting up in a stretcher. Awake and alert in no acute distress. He is requiring 15 L high flow nasal cannula to maintain O2 saturation in the 90s. He's been afebrile. Hemodynamically stable. So far he is diuresed 1300 ML's. Weight 127 kg. On 10/19/2021 patient seen in follow-up on medical surgical floor, this morning his breathing was significantly labored, rapid response team was called, and patient was placed on BiPAP support with pressures of 12 and 5 and FiO2 100%. He continues on IV diuretics, he is currently on Lasix 40 mg every 12 hours, he is diuresing quite extensively, and he is currently in negative 5.3 L net fluid balance over the last 24 hours, lung sounds reveal diffuse crackles and diminished breath sounds, with slightly better aeration at the left lung. Bose catheter is in, and draining large amount of clear yellow urine, patient is aw jemal and alert, he is tolerating BiPAP support quite well, his been afebrile, no complaints of chest pain, his chest x-ray today shows stable bilateral infiltrates and pleural effusion. His pro calcitonin level was negative his antibiotics were discontinued, steroids have been discontinued, patient has been started on nebulized treatments. BMP results have been reviewed showing sodium of 143, potassium is 4.3, chloride is 94, CO2 is 39, BUN of 14, creatinine 0.7. On 10/20/2021 patient seen in follow-up on medical surgical floor. His breathing has significantly improved with diuresis, he is currently off BiPAP support, and on 15 L per high flow nasal cannula, his pulse ox is 94%, breathing very comfortably, lung sounds are diminished, without rales or wheezes, however patient is a shallow breather, he needs encouragement to take deep breaths and cough. No coughing noted, his been afebrile, we added Zosyn for his history of aspiration related to his fast eating habits. However his pro calcitonin level has been negative, but in view of his hypoxia we will cover him with Zosyn empir ically. He is in -3470 mL net fluid balance over the last 24 hours, lower extremity edema is improving, he remains on IV Lasix at 40 mg every 12 hours, he is on DuoNeb nebulized treatments, he is on Pepcid. We'll add Lovenox for DVT prophylaxis, today's labs have been reviewed showing white blood cell count of 9.2, hemoglobin of 16.2, sodium is 140, potassium is 4.1, chloride is 89, CO2 is 38, BUN of 13, creatinine 0.8. No nausea or vomiting, no diarrhea. He is feeling hungry, he would like to eat Reevaluated today on 10/21/21, patient is back on BiPAP today. And he is on the percent FiO2 feeling better breathing easier, but had a bit of a setback and requiring more FiO2 to maintain adequate oxygenation. Patient remains on diuretics, remains on antibiotics empirically, furosemide is at 40 mg IV push every 12 hours. Patient is marginal at best. He is not a great historian but he does not seem to be in distress on BiPAP. Labs today showed BNP level of 265, his blood sugar was 180. WBC count is 9.4. On 10/22/2021 patient seen in follow-up on medical surgical floor. He is cu rrently on BiPAP of 12 and 500% FiO2, his pulse ox is 95-97%, and his FiO2 will be cut back to 80%, patient has been coming off the BiPAP on 15 L high flow to it however she quickly desaturates, and has to return to BiPAP, otherwise he is breathing comfortably, his lung sounds are diminished, I did not appreciate any crackles or wheezing. He remains on IV Lasix 40 mg every 12 hours, And he is in negative 4.6 L net fluid balance over the last 24 hours, lower extremity edema is improving, yesterday chest x-ray showing interval decrease in bilateral airspace and interstitial opacities. On 10/23/2021 patient seen in follow-up on medical surgical floor. Earlier today he was on BiPAP support, with pressures of 12 and 5 and FiO2 of 100%, however he started vomiting, BiPAP was removed, patient was placed on Airvo, he was given a dose of Reglan, rapid response team was called, abdominal x-ray was obtained, showing nonspecific abdomen. he denies any abdominal pain, abdomen is soft, he did have a bowel movement yesterday. Chest x-ray showed patchy perihilar and basilar infiltrates, without significant change. Patient has been extensively diuresed, he is in -2.6 L net fluid balance over the last 24 hours. Resolved volume contraction alkalosis, his CO2 is up to 41, sodium was 135, pot assium 3.8, chloride is 86, B1 is 14 creatinine 0.6. Blood gas showed pO2 of 77, pCO2 of 90, pH is 7.35, consistent with chronic hypercapnic respiratory failure. D-dimer was not significantly elevated only 0.82, low stemming Doppler showed no evidence of DVT. No cough, no chest pain, no hemoptysis. The patient is suspected to be aspirating, and she has been on Zosyn for last 48 hours, today's labs show normal white count of 7.1, hemoglobin 16.3 proBNP level was about 265, and this was a significantly improved value from admission which was 2470 Reevaluated today on 10/24/21, patient is now in the ICU, placed back on BiPAP 16/800%, patient was noted to be placed on non-rebreather mask and airvo last night, and the patient is noted to be a bit lethargic but arousable. I recommended immediate placement on BiPAP, and this was done. His CT angiogram of the chest done yesterday and no evidence of pulmonary embolism as expected however it did show bilateral infiltrates, and I'm still suspicious that the patient is developing aspiration pneumonia as he did in the past. Patient does have a chronic history of aspiration pneumonia. WBC count today is 5.5 hemoglobin is 15.8. Normal basic metabolic profile is normal renal profile is normal bicarb is 41. Patient remains on updrafts, is also on Lovenox extremely milligrams twice a day and I will cut it down to 40 mg subcu daily remains on methylprednisolone, and he is also on Zosyn. Reevaluated today on 10/25/21, remains in the ICU, sitting at a bedside chair, remains on BiPAP, he is on 100% FiO2, IPAP of 16 and EPAP of 8, patient seems to be comfortable and he is not in distress. I recommended tapering down his FiO2 however the patient is to stay on BiPAP, and is to stay in the ICU for today. Chest x-ray continues show by basilar airspace disease and atelectasis. CBC is relatively normal, basic metabolic profile is normal bicarb is 39. ABG prior to transferring the patient to the ICU on BiPAP showed a pO2 of 54 pCO2 95 pH of 7.33 and this was 2 days ago. 10/26/2021, the patient is being seen in follow-up in intensive care unit. 45-year-old male patient with known history of Down syndrome, currently on a BiPAP for respiratory support due to palpitations of CHF and possible aspiration. Repeat chest x-ray was done today and it shows again persistent bilateral pulmonary infiltrates in the lower lung colon. Mediastinum is less wide compared to yesterday. There may be some improvement in the volume status. There is no significant cardiomegaly on today's chest x-ray. Meanwhile, the patient's is currently off the BiPAP. He is using Airvo at 60 L with an FiO2 of 90% in addition to 100% nonrebreather facemask and his current pulse ox is in the order of 85%. His current cardiac rhythm is sinus. His fluid balance over the past 24 hours has been +185 mL. The patient however is producing urine outp ut and the urine output is in order of 25-30 mL an hour.. He is currently on IV Zosyn covering him for aspiration pneumonia. He is nothing by mouth for now and the patient is receiving PPN for nutritional support. On today's blood work, his white cell count of 5.6 with a hemoglobin of 17.9, platelets of 185, BUN of 22 with a creatinine of 0.6 and the sodium level is at 138. Meanwhile, his echo cardiogram that was done on 10/18/2021 showed a preserved LV function with an ejection fraction of 50-55%, no significant valvular abnormalities have been noted. The patient pro-calcitonin level and time of admission was 0.09. The patient's proBNP level at the time of admission was 2470 and it dropped down to 265. Objective - Vital Signs Vital signs: Vital Signs Temp 98.3 F 10/26/21 04:00 Pulse 86 10/26/21 05:00 Resp 16 10/26/21 05:00 BP 159/88 10/26/21 04:00 Pulse Ox 85 L 10/26/21 05:00 Intake & Output 10/25/21 10/26/21 10/26/21 18:59 06:59 18:59 Intake Total 685 550 Output Total 430 360 Balance 255 190 Weight 128 kg 128 kg Intake: IV 200 Piperacillin-Tazobactam 3 200 .375 gm In Sodium Chloride 0.9% 100 ml @ 25 mls/hr IVPB Q8HR [facility] Rx# :[id number] Intake, IV Titration 485 550 Amount Mvi, Adult No.4 with Vit 90 330 K 10 ml Trace (Conc-1Ml/ Dose) 1 ml Sodium Chloride 4Meq/ml Vial 32 meq Sodium Phosphate 15 mmol Potassium Chloride 20 meq Magnesium Sulfate gm 1 gm Calcium Gluconate 1 gm In Amino Acids 5 %/ Dextrose 20 % 1,000 ml @ 30 mls/hr IV .Q24H [facility] Rx #:[id number] Sodium Chloride 0.9% 1, 395 220 000 ml @ 25 mls/hr IV . Q24H [facility] Rx#:[id number] Output: Urine 430 360 Other: Voiding Method Indwelling Catheter Indwelling Catheter - Exam Physical Exam: Revealed 45-year-old white male obese on 100 on a beta facemasks in addition to a Airvo, 60 L an FiO2 of 70%. The patient is morbidly obese, carries a BMI of 48.4, he has the typical features of Down syndrome with a short neck and the typical Down's features. Head: Atraumatic normocephalic. HEENT:[Neck is supple.] [No neck masses.] [No thyromegaly.] [No JVD.] Chest: [Symmetrical chest expansion crackles at the bases. Cardiac Exam: [Normal S1 and S2, no S3 gallop, no murmur.] Abdomen: [Soft, nontender, no megaly, no rebound, no guarding, normal bowel sounds.] Extremities: [No clubbing, no edema, no cyanosis.] Neurological Exam: [No focal neurologic deficit.] Musculoskeletal no deformities and no limitation in range of motion. - Labs CBC & Chem 7: 10/26/21 03:43 10/26/21 03:43 Labs: Abnormal Lab Results - Last 24 Hours (Table) 10/26/21 10/26/21 Range/Units 03:43 03:43 RBC 6.20 H (4.30-5.90) m/uL Hgb 17.9 H (13.0-17.5) gm/dL Hct 59.5 H* (39.0-53.0) % MCHC 30.1 L (31.0-37.0) g/dL RDW 18.1 H (11.5-15.5) % Lymphocytes # (Manual) 0.34 L (1.0-4.8) k/uL Chloride 93 L (98-107) mmol/L Carbon Dioxide 38 H (22-30) mmol/L BUN 22 H (9-20) mg/dL Creatinine 0.63 L (0.66-1.25) mg/dL Glucose 171 H (74-99) mg/dL Magnesium 2.4 H (1.6-2.3) mg/dL Assessment and Plan Plan: #1. Acute hypoxic and hypercapnic respiratory failure, multifactorial I believe is mostly related to aspiration pneumonia, acute diastolic congestive heart failure, and obesity/hypoventilation syndrome.. Note that the exam is limited. My impression is that the patient has a significant CHF with preserved LV func tion diastolic failure and the patient has significant amount of edema in lower extremity is bilaterally. He possibly has a component of hypoventilation syndrome knowing that his serum bicarbonate has been quite elevated even on previous evaluations. No blood gases are available and this will be done to assess his acid base status. #2. Obesity/hypoventilation syndrome #3. History of Down syndrome #4. History of hyperlipidemia #5. History of obstructive sleep apnea, intolerant to CPAP #6 strongly suspect aspiration pneumonia. And I suspect that the patient may have developed even acute lung injury from aspiration pneumonia. #7. Morbid obesity with BMI 48 kg/m #8 increased lower extremity edema secondary to above Recommendation: Start the patient on Lasix drip at 5 mg an hour and add Zaroxolyn 2.5 mg by mouth twice a day Keep the patient airflow 60 L an FiO2 of 70% and 100% nonrebreather facemask BiPAP as needed during the day and continuously overnight if possible Check a blood gas Doppler echo Diamox if there is development of significant metabolic alkalosis on his blood work or CO2 retention C Continue bronchodilators and continue methylprednisolone Continue GI prophylaxis Continue to monitor in the ICU, patient's clinical status is marginal at best. Continue antibiotics, Zosyn. TPN for nutritional support Continue Lovenox. Continue GI prophylaxis. We will continue to follow.
[2021-10-26] MEDS: IPRATROPIUM-ALBUTEROL 3 ML NEB INHALATION SCH ×4 (10:00→19:32)
[2021-10-26] MEDS: PIPERACILLIN-TAZOBACTAM 3.375 GM in SODIUM CHLORIDE 0.9% 100 ML IVPB SCH ×3 (10:07→23:45)
[2021-10-26] MEDS: FAMOTIDINE 20 MG/2 ML VIAL IV SCH ×2 (10:08→21:43)
[2021-10-26] MEDS: FUROSEMIDE 100 MG in SODIUM CHLORIDE 0.9% 90 ML IV SCH (10:08)
[2021-10-26] MEDS: ENOXAPARIN 60 MG/0.6 ML SYRINGE SQ SCH (10:08)
[2021-10-26 11:46] LABS: ABG Base Excess 20.5 mmol/L; ABG PCO2 73 mmHg (35-45); ABG PO2 63 mmHg (83-108); ABG TCO2 48 mmol/L (19-24); Allen Test Performed? Yes
[2021-10-26 11:47] LABS: ABG HCO3 45 mmol/L (21-25)
[2021-10-26] MEDS: metOLazone 2.5 MG TAB PO SCH ×2 (14:01→21:44)
[2021-10-26] MEDS: ATORVASTATIN 40 MG TAB PO SCH (14:01)
[2021-10-26] MEDS: ONDANSETRON 4 MG/2 ML VIAL IVP PRN (14:04)
[2021-10-26] MEDS: 1: MVI, ADULT NO.4 WITH VIT K 10 ML, TRACE (CONC-1ML/DOSE) 1 ML, SODIUM CHLORIDE 4MEQ/ML IV SCH ×7 (17:22)
[2021-10-27] MEDS: FUROSEMIDE 100 MG in SODIUM CHLORIDE 0.9% 90 ML IV SCH ×2 (00:15→17:28)
[2021-10-27 05:27] LABS: Anisocytosis Slight; Basophils % (A) 0 %; Eosinophils % (A) 0 %; HCT 50.8 % (39.0-53.0); Hypochromasia Marked; Lymphocytes # (A) 0.7 k/uL (1.0-4.8); Lymphocytes % (A) 9 %; MCH 33.4 pg (25.0-35.0); MCHC 35.5 g/dL (31.0-37.0); MCV 94.2 fL (80.0-100.0); Mean Platelet Volume 11.3; Monocytes # (A) 0.6 k/uL (0-1.0); Monocytes % (A) 8 %; Neutrophils # (A) 6.2 k/uL (1.3-7.7); Neutrophils % (A) 83 %; Platelet Count 177 k/uL (150-450); Poikilocytosis Slight; RDW 18.2 % (11.5-15.5); WBC 7.5 k/uL (3.8-10.6)
[2021-10-27 05:37] LABS: African American GFR (CKD) >90 (>60 ml/min/1.73 sqM); Blood Urea Nitrogen 33 mg/dL (9-20); Calcium 9.2 mg/dL (8.4-10.2); Chloride 82 mmol/L (98-107); Glucose 247 mg/dL (74-99); Magnesium 1.9 mg/dL (1.6-2.3); Non-African American GFR(CKD) >90 (>60 ml/min/1.73 sqM); Potassium 4.1 mmol/L (3.5-5.1); Sodium 132 mmol/L (137-145)
[2021-10-27 05:43] LABS: Anion Gap 12 mmol/L; Carbon Dioxide 38 mmol/L (22-30)
[2021-10-27] MEDS: METOCLOPRAMIDE 5 MG/ML 2 ML VIAL IVP SCH ×4 (07:18→23:32)
[2021-10-27] MEDS: methylPREDNISolone SOD SUCCI 125 MG/2 ML VIAL IV SCH (07:19)
[2021-10-27] MEDS: IPRATROPIUM-ALBUTEROL 3 ML NEB INHALATION SCH ×4 (07:36→20:08)
[2021-10-27] MEDS: 1: MVI, ADULT NO.4 WITH VIT K 10 ML, TRACE (CONC-1ML/DOSE) 1 ML, SODIUM CHLORIDE 4MEQ/ML IV SCH ×7 (08:03)
[2021-10-27] MEDS: SODIUM CHLORIDE 0.9% 500 ML 500 ML IV SCH ×2 (08:03→13:28)
--- NOTE | 2021-10-27 08:22 | XR ---
EXAMINATION TYPE: XR chest 1V portable DATE OF EXAM: 10/27/2021 COMPARISON: 10/26/2021 HISTORY: SOB, Follow Up FINDINGS: PICC line is unchanged. No change in bibasilar opacities. Stable appearance of the cardio-mediastinal structures at this time. Pleural effusion unchanged. IMPRESSION: 1. Stable portable chest. Clinical correlation and follow up until resolution is recommended.
[2021-10-27] MEDS: PIPERACILLIN-TAZOBACTAM 3.375 GM in SODIUM CHLORIDE 0.9% 100 ML IVPB SCH ×3 (08:25→23:31)
[2021-10-27] MEDS: ATORVASTATIN 40 MG TAB PO SCH (08:26)
[2021-10-27] MEDS: metOLazone 2.5 MG TAB PO SCH ×2 (08:26→22:24)
[2021-10-27] MEDS: ENOXAPARIN 60 MG/0.6 ML SYRINGE SQ SCH (08:26)
[2021-10-27] MEDS: FAMOTIDINE 20 MG/2 ML VIAL IV SCH ×2 (08:26→20:22)
[2021-10-27] MEDS ORDERED: FAT EMULSION 20% 500 ML in EMPTY BAG 1 BAG IV SCH (10:00)
--- NOTE | 2021-10-27 10:00 | P.PN ---
Subjective Progress Note Date: 10/27/21 This is a pleasant 45-year-old gentleman with a known history of Down syndrome, hyperlipidemia, obstructive sleep apnea but intolerant to CPAP, gastroesophageal reflux disease. He has a poor historian. He was brought into the emergency room yesterday after his family found him to be short of breath with cough and swelling of the lower extremities. He is quite hypoxic on arrival by EMS and was placed on nonrebreather mass. His x-ray reveals evidence of cardiomegaly with diffuse interstitial edema and basilar infiltrates. EKG reveals normal sinus rhythm without acute ST or T wave abnormalities. White count 6.9. Hemoglobin 17.1. Sodium 134. Creatinine 0.65. Lactic acid 1.5. AST 93. ALT 70. ProBNP 2470. Troponin 0.025. Chavira virus by PCR not detected. He was initiated on IV diuretics, antibiotics, bronchodilators and steroids. He is seen today in consultation in the emergency department. He is currently sitting up in a stretcher. Awake and alert in no acute distress. He is requiring 15 L high flow nasal cannula to maintain O2 saturation in the 90s. He's been afebrile. Hemodynamically stable. So far he is diuresed 1300 ML's. Weight 127 kg. On 10/19/2021 patient seen in follow-up on medical surgical floor, this morning his breathing was significantly labored, rapid response team was called, and patient was placed on BiPAP support with pressures of 12 and 5 and FiO2 100%. He continues on IV diuretics, he is currently on Lasix 40 mg every 12 hours, he is diuresing quite extensively, and he is currently in negative 5.3 L net fluid balance over the last 24 hours, lung sounds reveal diffuse crackles and diminished breath sounds, with slightly better aeration at the left lung. Bose catheter is in, and draining large amount of clear yellow urine, patient is aw jemal and alert, he is tolerating BiPAP support quite well, his been afebrile, no complaints of chest pain, his chest x-ray today shows stable bilateral infiltrates and pleural effusion. His pro calcitonin level was negative his antibiotics were discontinued, steroids have been discontinued, patient has been started on nebulized treatments. BMP results have been reviewed showing sodium of 143, potassium is 4.3, chloride is 94, CO2 is 39, BUN of 14, creatinine 0.7. On 10/20/2021 patient seen in follow-up on medical surgical floor. His breathing has significantly improved with diuresis, he is currently off BiPAP support, and on 15 L per high flow nasal cannula, his pulse ox is 94%, breathing very comfortably, lung sounds are diminished, without rales or wheezes, however patient is a shallow breather, he needs encouragement to take deep breaths and cough. No coughing noted, his been afebrile, we added Zosyn for his history of aspiration related to his fast eating habits. However his pro calcitonin level has been negative, but in view of his hypoxia we will cover him with Zosyn empir ically. He is in -3470 mL net fluid balance over the last 24 hours, lower extremity edema is improving, he remains on IV Lasix at 40 mg every 12 hours, he is on DuoNeb nebulized treatments, he is on Pepcid. We'll add Lovenox for DVT prophylaxis, today's labs have been reviewed showing white blood cell count of 9.2, hemoglobin of 16.2, sodium is 140, potassium is 4.1, chloride is 89, CO2 is 38, BUN of 13, creatinine 0.8. No nausea or vomiting, no diarrhea. He is feeling hungry, he would like to eat Reevaluated today on 10/21/21, patient is back on BiPAP today. And he is on the percent FiO2 feeling better breathing easier, but had a bit of a setback and requiring more FiO2 to maintain adequate oxygenation. Patient remains on diuretics, remains on antibiotics empirically, furosemide is at 40 mg IV push every 12 hours. Patient is marginal at best. He is not a great historian but he does not seem to be in distress on BiPAP. Labs today showed BNP level of 265, his blood sugar was 180. WBC count is 9.4. On 10/22/2021 patient seen in follow-up on medical surgical floor. He is cu rrently on BiPAP of 12 and 500% FiO2, his pulse ox is 95-97%, and his FiO2 will be cut back to 80%, patient has been coming off the BiPAP on 15 L high flow to it however she quickly desaturates, and has to return to BiPAP, otherwise he is breathing comfortably, his lung sounds are diminished, I did not appreciate any crackles or wheezing. He remains on IV Lasix 40 mg every 12 hours, And he is in negative 4.6 L net fluid balance over the last 24 hours, lower extremity edema is improving, yesterday chest x-ray showing interval decrease in bilateral airspace and interstitial opacities. On 10/23/2021 patient seen in follow-up on medical surgical floor. Earlier today he was on BiPAP support, with pressures of 12 and 5 and FiO2 of 100%, however he started vomiting, BiPAP was removed, patient was placed on Airvo, he was given a dose of Reglan, rapid response team was called, abdominal x-ray was obtained, showing nonspecific abdomen. he denies any abdominal pain, abdomen is soft, he did have a bowel movement yesterday. Chest x-ray showed patchy perihilar and basilar infiltrates, without significant change. Patient has been extensively diuresed, he is in -2.6 L net fluid balance over the last 24 hours. Resolved volume contraction alkalosis, his CO2 is up to 41, sodium was 135, pot assium 3.8, chloride is 86, B1 is 14 creatinine 0.6. Blood gas showed pO2 of 77, pCO2 of 90, pH is 7.35, consistent with chronic hypercapnic respiratory failure. D-dimer was not significantly elevated only 0.82, low stemming Doppler showed no evidence of DVT. No cough, no chest pain, no hemoptysis. The patient is suspected to be aspirating, and she has been on Zosyn for last 48 hours, today's labs show normal white count of 7.1, hemoglobin 16.3 proBNP level was about 265, and this was a significantly improved value from admission which was 2470 Reevaluated today on 10/24/21, patient is now in the ICU, placed back on BiPAP 16/800%, patient was noted to be placed on non-rebreather mask and airvo last night, and the patient is noted to be a bit lethargic but arousable. I recommended immediate placement on BiPAP, and this was done. His CT angiogram of the chest done yesterday and no evidence of pulmonary embolism as expected however it did show bilateral infiltrates, and I'm still suspicious that the patient is developing aspiration pneumonia as he did in the past. Patient does have a chronic history of aspiration pneumonia. WBC count today is 5.5 hemoglobin is 15.8. Normal basic metabolic profile is normal renal profile is normal bicarb is 41. Patient remains on updrafts, is also on Lovenox extremely milligrams twice a day and I will cut it down to 40 mg subcu daily remains on methylprednisolone, and he is also on Zosyn. Reevaluated today on 10/25/21, remains in the ICU, sitting at a bedside chair, remains on BiPAP, he is on 100% FiO2, IPAP of 16 and EPAP of 8, patient seems to be comfortable and he is not in distress. I recommended tapering down his FiO2 however the patient is to stay on BiPAP, and is to stay in the ICU for today. Chest x-ray continues show by basilar airspace disease and atelectasis. CBC is relatively normal, basic metabolic profile is normal bicarb is 39. ABG prior to transferring the patient to the ICU on BiPAP showed a pO2 of 54 pCO2 95 pH of 7.33 and this was 2 days ago. 10/26/2021, the patient is being seen in follow-up in intensive care unit. 45-year-old male patient with known history of Down syndrome, currently on a BiPAP for respiratory support due to palpitations of CHF and possible aspiration. Repeat chest x-ray was done today and it shows again persistent bilateral pulmonary infiltrates in the lower lung colon. Mediastinum is less wide compared to yesterday. There may be some improvement in the volume status. There is no significant cardiomegaly on today's chest x-ray. Meanwhile, the patient's is currently off the BiPAP. He is using Airvo at 60 L with an FiO2 of 90% in addition to 100% nonrebreather facemask and his current pulse ox is in the order of 85%. His current cardiac rhythm is sinus. His fluid balance over the past 24 hours has been +185 mL. The patient however is producing urine outp ut and the urine output is in order of 25-30 mL an hour.. He is currently on IV Zosyn covering him for aspiration pneumonia. He is nothing by mouth for now and the patient is receiving PPN for nutritional support. On today's blood work, his white cell count of 5.6 with a hemoglobin of 17.9, platelets of 185, BUN of 22 with a creatinine of 0.6 and the sodium level is at 138. Meanwhile, his echo cardiogram that was done on 10/18/2021 showed a preserved LV function with an ejection fraction of 50-55%, no significant valvular abnormalities have been noted. The patient pro-calcitonin level and time of admission was 0.09. The patient's proBNP level at the time of admission was 2470 and it dropped down to 265. 10/27/2021, the patient is doing well. As the patient is awake and alert. The patient is off BiPAP and the patient is currently on Airvo 60 L of 5-70%. The patient is also utilizing on and off 100% nonrebreather facemask. The patient was started on a Lasix drip yesterday 5 mg an hour. The patient is also on Zaroxolyn 2.5 mg twice a day. Overall fluid balance is -4.2 L over the past 24 hours. Meanwhile, the patient feels less short of breath. Chest x-ray still showing pulmonary edema and bilateral pleural effusions. There may be some limited improvement in the volume status bilaterally. Clinically the patient is more stable and his breathing is not labored this point in time. In terms of his blood work, the patient's sodium level today is at 132 with a potassium level of 4.1 and serum bicarbonate 38. The blood gas showed a pH of 7.4 with a pCO2 of 73 and pO2 of 63 from yesterday and this was done and FiO2 of 70% while being on Airvo at 60 L. The white cell count today is at 7.5 with hemoglobin of 18 and platelet count of 177. In terms of treatment, the patient is still on Lasix drip and Zaroxolyn. The patient is also on empiric antibiotic coverage w ith IV Zosyn covering for aspiration pneumonia. In terms of his swallow, he is able to swallow. I think it's reasonable to advance his diet and discontinue TPN for now. Objective - Vital Signs Vital signs: Vital Signs Temp 98.1 F 10/27/21 08:00 Pulse 74 10/27/21 08:00 Resp 30 H 10/27/21 08:00 BP 136/56 10/27/21 08:00 Pulse Ox 88 L 10/27/21 08:00 Intake & Output 10/26/21 10/27/21 10/27/21 18:59 06:59 18:59 Intake Total 607 1105.583 40 Output Total 1625 4375 700 Balance -1018 -3269.417 -660 Intake: IV 385 315 40 .9 KVO 100 180 40 Furosemide 100 mg In 45 35 Sodium Chloride 0.9% 90 ml @ 5 MG/HR 5 mls/hr IV .Q20H [facility] Rx#:[id number] Piperacillin-Tazobactam 3 240 100 .375 gm In Sodium Chloride 0.9% 100 ml @ 25 mls/hr IVPB Q8HR [facility] Rx# :[id number] Intake, IV Titration 70.583 Amount Furosemide 100 mg In 70.583 Sodium Chloride 0.9% 90 ml @ 5 MG/HR 5 mls/hr IV .Q20H [facility] Rx#:[id number] Oral 222 720 Output: Urine 1625 4375 700 Other: Voiding Method Indwelling Catheter Indwelling Catheter Indwelling Catheter - Exam Physical Exam: Revealed 45-year-old white male obese on 100 on a beta facemasks in addition to a Airvo, 60 L an FiO2 of 70%. The patient is morbidly obese, carries a BMI of 48.4, he has the typical features of Down syndrome with a short neck and the typical Down's features. Head: Atraumatic normocephalic. HEENT:[Neck is supple.] [No neck masses.] [No thyromegaly.] [No JVD.] Chest: [Symmetrical chest expansion crackles at the bases. Cardiac Exam: [Normal S1 and S2, no S3 gallop, no murmur.] Abdomen: [Soft, nontender, no megaly, no rebound, no guarding, normal bowel sounds.] Extremities: [No clubbing, no edema, no cyanosis.] Neurological Exam: [No focal neurologic deficit.] Musculoskeletal no deformities and no limitation in range of motion. - Labs CBC & Chem 7: 10/27/21 04:08 10/27/21 04:08 Labs: Abnormal Lab Results - Last 24 Hours (Table) 10/26/21 10/27/21 10/27/21 Range/Units 11:43 04:08 04:08 Hgb 18.0 H (13.0-17.5) gm/dL RDW 18.2 H (11.5-15.5) % Lymphocytes # 0.7 L (1.0-4.8) k/uL ABG pCO2 73 H* (35-45) mmHg ABG pO2 63 L (83-108) mmHg ABG HCO3 45 H* (21-25) mmol/L ABG Total CO2 48 H (19-24) mmol/L ABG O2 Saturation 92.0 L (94-97) % Sodium 132 L (137-145) mmol/L Chloride 82 L (98-107) mmol/L Carbon Dioxide 38 H (22-30) mmol/L BUN 33 H (9-20) mg/dL Glucose 247 H (74-99) mg/dL Assessment and Plan Plan: #1. Acute hypoxic and hypercapnic respiratory failure, multifactorial I believe is mostly related to aspiration pneumonia, acute diastolic congestive heart failure, and obesity/hypoventilation syndrome.. Note that the exam is limited. My impression is that the patient has a significant CHF with preserved LV function diastolic failure and the patient has significant amount of edema in lower extremity is bilaterally. He possibly has a component of hypoventilation syndrome knowing that his serum bicarbonate has been quite elevated even on previous evaluations. The patient is currently being diuresis with Lasix drip at 5 mg an hour and the patient is also on Zaroxolyn. Overall fluid balance is -4.2 L over the past 24 hours. He has well compensated chronic hypercapnic respiratory failure. Based on the blood. This was obtained yesterday. No signs of any CO2 narcosis. Chest x-ray showed some slight improvement in the volume status. The patient remains on a Airvo. The 100% nonrebreather facemask will be discontinued. #2. Obesity/hypoventilation syndrome #3. History of Down syndrome #4. History of hyperlipidemia #5. History of obstructive sleep apnea, intolerant to CPAP #6 possible aspiration pneumonia. #7. Morbid obesity with BMI 48 kg/m #8 increased lower extremity edema secondary to above Recommendation: Start the patient on Lasix drip at 5 mg an hour and add Zaroxolyn 2.5 mg by mouth twice a day Keep the patient airflow 60 L an FiO2 of 70% BiPAP as needed during the day and continuously overnight if possible Continue Lasix drip for another 24 hours and wean the FiO2 as tolerated to maintain a saturation above 90% Continue bronchodilators and this continued IV Solu-Medrol Continue GI prophylaxis Continue antibiotics, Zosyn. DC TPN and advance oral intake Continue Lovenox. Continue GI prophylaxis. We will continue to follow. May transfer out of the intensive care unit.
[2021-10-28] MEDS: METOCLOPRAMIDE 5 MG/ML 2 ML VIAL IVP SCH ×4 (06:07→23:28)
[2021-10-28 06:34] LABS: African American GFR (CKD) >90 (>60 ml/min/1.73 sqM); Blood Urea Nitrogen 50 mg/dL (9-20); Calcium 9.2 mg/dL (8.4-10.2); Glucose 146 mg/dL (74-99); Magnesium 1.7 mg/dL (1.6-2.3); Non-African American GFR(CKD) >90 (>60 ml/min/1.73 sqM); Phosphorus 4.3 mg/dL (2.5-4.5); Potassium 3.1 mmol/L (3.5-5.1); Sodium 132 mmol/L (137-145)
[2021-10-28 06:40] LABS: Anion Gap 10 mmol/L
[2021-10-28 06:46] LABS: Carbon Dioxide 49 mmol/L (22-30); Chloride 73 mmol/L (98-107)
[2021-10-28] MEDS: IPRATROPIUM-ALBUTEROL 3 ML NEB INHALATION SCH ×4 (07:15→19:41)
[2021-10-28] MEDS: metOLazone 2.5 MG TAB PO SCH (09:49)
[2021-10-28] MEDS: FAMOTIDINE 20 MG/2 ML VIAL IV SCH ×2 (09:49→20:17)
[2021-10-28] MEDS: PIPERACILLIN-TAZOBACTAM 3.375 GM in SODIUM CHLORIDE 0.9% 100 ML IVPB SCH ×3 (09:49→23:27)
[2021-10-28] MEDS: ENOXAPARIN 60 MG/0.6 ML SYRINGE SQ SCH (09:49)
[2021-10-28] MEDS: ATORVASTATIN 40 MG TAB PO SCH (09:49)
[2021-10-28] MEDS ORDERED: Potassium Replacement Protocol 1 EACH MISC MISCELLANE PRN (10:33)
--- NOTE | 2021-10-28 11:52 | P.PN ---
Subjective Progress Note Date: 10/28/21 This is a pleasant 45-year-old gentleman with a known history of Down syndrome, hyperlipidemia, obstructive sleep apnea but intolerant to CPAP, gastroesophageal reflux disease. He has a poor historian. He was brought into the emergency room yesterday after his family found him to be short of breath with cough and swelling of the lower extremities. He is quite hypoxic on arrival by EMS and was placed on nonrebreather mass. His x-ray reveals evidence of cardiomegaly with diffuse interstitial edema and basilar infiltrates. EKG reveals normal sinus rhythm without acute ST or T wave abnormalities. White count 6.9. Hemoglobin 17.1. Sodium 134. Creatinine 0.65. Lactic acid 1.5. AST 93. ALT 70. ProBNP 2470. Troponin 0.025. Chavira virus by PCR not detected. He was initiated on IV diuretics, antibiotics, bronchodilators and steroids. He is seen today in consultation in the emergency department. He is currently sitting up in a stretcher. Awake and alert in no acute distress. He is requiring 15 L high flow nasal cannula to maintain O2 saturation in the 90s. He's been afebrile. Hemodynamically stable. So far he is diuresed 1300 ML's. Weight 127 kg. On 10/19/2021 patient seen in follow-up on medical surgical floor, this morning his breathing was significantly labored, rapid response team was called, and patient was placed on BiPAP support with pressures of 12 and 5 and FiO2 100%. He continues on IV diuretics, he is currently on Lasix 40 mg every 12 hours, he is diuresing quite extensively, and he is currently in negative 5.3 L net fluid balance over the last 24 hours, lung sounds reveal diffuse crackles and diminished breath sounds, with slightly better aeration at the left lung. Bose catheter is in, and draining large amount of clear yellow urine, patient is aw jemal and alert, he is tolerating BiPAP support quite well, his been afebrile, no complaints of chest pain, his chest x-ray today shows stable bilateral infiltrates and pleural effusion. His pro calcitonin level was negative his antibiotics were discontinued, steroids have been discontinued, patient has been started on nebulized treatments. BMP results have been reviewed showing sodium of 143, potassium is 4.3, chloride is 94, CO2 is 39, BUN of 14, creatinine 0.7. On 10/20/2021 patient seen in follow-up on medical surgical floor. His breathing has significantly improved with diuresis, he is currently off BiPAP support, and on 15 L per high flow nasal cannula, his pulse ox is 94%, breathing very comfortably, lung sounds are diminished, without rales or wheezes, however patient is a shallow breather, he needs encouragement to take deep breaths and cough. No coughing noted, his been afebrile, we added Zosyn for his history of aspiration related to his fast eating habits. However his pro calcitonin level has been negative, but in view of his hypoxia we will cover him with Zosyn empir ically. He is in -3470 mL net fluid balance over the last 24 hours, lower extremity edema is improving, he remains on IV Lasix at 40 mg every 12 hours, he is on DuoNeb nebulized treatments, he is on Pepcid. We'll add Lovenox for DVT prophylaxis, today's labs have been reviewed showing white blood cell count of 9.2, hemoglobin of 16.2, sodium is 140, potassium is 4.1, chloride is 89, CO2 is 38, BUN of 13, creatinine 0.8. No nausea or vomiting, no diarrhea. He is feeling hungry, he would like to eat Reevaluated today on 10/21/21, patient is back on BiPAP today. And he is on the percent FiO2 feeling better breathing easier, but had a bit of a setback and requiring more FiO2 to maintain adequate oxygenation. Patient remains on diuretics, remains on antibiotics empirically, furosemide is at 40 mg IV push every 12 hours. Patient is marginal at best. He is not a great historian but he does not seem to be in distress on BiPAP. Labs today showed BNP level of 265, his blood sugar was 180. WBC count is 9.4. On 10/22/2021 patient seen in follow-up on medical surgical floor. He is cu rrently on BiPAP of 12 and 500% FiO2, his pulse ox is 95-97%, and his FiO2 will be cut back to 80%, patient has been coming off the BiPAP on 15 L high flow to it however she quickly desaturates, and has to return to BiPAP, otherwise he is breathing comfortably, his lung sounds are diminished, I did not appreciate any crackles or wheezing. He remains on IV Lasix 40 mg every 12 hours, And he is in negative 4.6 L net fluid balance over the last 24 hours, lower extremity edema is improving, yesterday chest x-ray showing interval decrease in bilateral airspace and interstitial opacities. On 10/23/2021 patient seen in follow-up on medical surgical floor. Earlier today he was on BiPAP support, with pressures of 12 and 5 and FiO2 of 100%, however he started vomiting, BiPAP was removed, patient was placed on Airvo, he was given a dose of Reglan, rapid response team was called, abdominal x-ray was obtained, showing nonspecific abdomen. he denies any abdominal pain, abdomen is soft, he did have a bowel movement yesterday. Chest x-ray showed patchy perihilar and basilar infiltrates, without significant change. Patient has been extensively diuresed, he is in -2.6 L net fluid balance over the last 24 hours. Resolved volume contraction alkalosis, his CO2 is up to 41, sodium was 135, pot assium 3.8, chloride is 86, B1 is 14 creatinine 0.6. Blood gas showed pO2 of 77, pCO2 of 90, pH is 7.35, consistent with chronic hypercapnic respiratory failure. D-dimer was not significantly elevated only 0.82, low stemming Doppler showed no evidence of DVT. No cough, no chest pain, no hemoptysis. The patient is suspected to be aspirating, and she has been on Zosyn for last 48 hours, today's labs show normal white count of 7.1, hemoglobin 16.3 proBNP level was about 265, and this was a significantly improved value from admission which was 2470 Reevaluated today on 10/24/21, patient is now in the ICU, placed back on BiPAP 16/800%, patient was noted to be placed on non-rebreather mask and airvo last night, and the patient is noted to be a bit lethargic but arousable. I recommended immediate placement on BiPAP, and this was done. His CT angiogram of the chest done yesterday and no evidence of pulmonary embolism as expected however it did show bilateral infiltrates, and I'm still suspicious that the patient is developing aspiration pneumonia as he did in the past. Patient does have a chronic history of aspiration pneumonia. WBC count today is 5.5 hemoglobin is 15.8. Normal basic metabolic profile is normal renal profile is normal bicarb is 41. Patient remains on updrafts, is also on Lovenox extremely milligrams twice a day and I will cut it down to 40 mg subcu daily remains on methylprednisolone, and he is also on Zosyn. Reevaluated today on 10/25/21, remains in the ICU, sitting at a bedside chair, remains on BiPAP, he is on 100% FiO2, IPAP of 16 and EPAP of 8, patient seems to be comfortable and he is not in distress. I recommended tapering down his FiO2 however the patient is to stay on BiPAP, and is to stay in the ICU for today. Chest x-ray continues show by basilar airspace disease and atelectasis. CBC is relatively normal, basic metabolic profile is normal bicarb is 39. ABG prior to transferring the patient to the ICU on BiPAP showed a pO2 of 54 pCO2 95 pH of 7.33 and this was 2 days ago. 10/26/2021, the patient is being seen in follow-up in intensive care unit. 45-year-old male patient with known history of Down syndrome, currently on a BiPAP for respiratory support due to palpitations of CHF and possible aspiration. Repeat chest x-ray was done today and it shows again persistent bilateral pulmonary infiltrates in the lower lung colon. Mediastinum is less wide compared to yesterday. There may be some improvement in the volume status. There is no significant cardiomegaly on today's chest x-ray. Meanwhile, the patient's is currently off the BiPAP. He is using Airvo at 60 L with an FiO2 of 90% in addition to 100% nonrebreather facemask and his current pulse ox is in the order of 85%. His current cardiac rhythm is sinus. His fluid balance over the past 24 hours has been +185 mL. The patient however is producing urine outp ut and the urine output is in order of 25-30 mL an hour.. He is currently on IV Zosyn covering him for aspiration pneumonia. He is nothing by mouth for now and the patient is receiving PPN for nutritional support. On today's blood work, his white cell count of 5.6 with a hemoglobin of 17.9, platelets of 185, BUN of 22 with a creatinine of 0.6 and the sodium level is at 138. Meanwhile, his echo cardiogram that was done on 10/18/2021 showed a preserved LV function with an ejection fraction of 50-55%, no significant valvular abnormalities have been noted. The patient pro-calcitonin level and time of admission was 0.09. The patient's proBNP level at the time of admission was 2470 and it dropped down to 265. 10/27/2021, the patient is doing well. As the patient is awake and alert. The patient is off BiPAP and the patient is currently on Airvo 60 L of 5-70%. The patient is also utilizing on and off 100% nonrebreather facemask. The patient was started on a Lasix drip yesterday 5 mg an hour. The patient is also on Zaroxolyn 2.5 mg twice a day. Overall fluid balance is -4.2 L over the past 24 hours. Meanwhile, the patient feels less short of breath. Chest x-ray still showing pulmonary edema and bilateral pleural effusions. There may be some limited improvement in the volume status bilaterally. Clinically the patient is more stable and his breathing is not labored this point in time. In terms of his blood work, the patient's sodium level today is at 132 with a potassium level of 4.1 and serum bicarbonate 38. The blood gas showed a pH of 7.4 with a pCO2 of 73 and pO2 of 63 from yesterday and this was done and FiO2 of 70% while being on Airvo at 60 L. The white cell count today is at 7.5 with hemoglobin of 18 and platelet count of 177. In terms of treatment, the patient is still on Lasix drip and Zaroxolyn. The patient is also on empiric antibiotic coverage w ith IV Zosyn covering for aspiration pneumonia. In terms of his swallow, he is able to swallow. I think it's reasonable to advance his diet and discontinue TPN for now. The patient is seen today 10/28/2021 in follow-up on the regular medical floor. He is currently sitting up in a chair at the bedside. Awake and alert in no acute distress. He remains on AirVo high flow oxygen at 60 L and 75% FiO2. He did not require the BiPAP last night. Sodium 132. Potassium 3.1. Chloride 73. Bicarb 49. BUN 50. Creatinine 0.94. Glucose 146. He is currently on a Lasix drip at 5 mg per hour. He is also on Zaroxolyn. He is in -9 L balance the past 24-48 hours. Weight of 128 kg. He remains on antibiotics in the form of Zosyn. Lovenox for DVT prophylaxis. Continue bronchodilators. Objective - Vital Signs Vital signs: Vital Signs Temp 98.5 F 10/28/21 04:43 Pulse 74 10/28/21 11:39 Resp 18 10/28/21 04:43 BP 108/70 10/28/21 04:43 Pulse Ox 94 L 10/28/21 07:17 Intake & Output 10/27/21 10/28/21 10/28/21 18:59 06:59 18:59 Intake Total 226.083 Output Total 2750 2700 Balance -2523.917 -2700 Weight 128 kg Intake: IV 140 .9 KVO 140 Intake, IV Titration 86.083 Amount Furosemide 100 mg In 86.083 Sodium Chloride 0.9% 90 ml @ 5 MG/HR 5 mls/hr IV .Q20H [facility] Rx#:[id number] Output: Urine 2750 2700 Coude 2700 Other: Voiding Method Indwelling Catheter Indwelling Catheter Indwelling Catheter - Exam GENERAL EXAM: Alert, interactive, very pleasant 45-year-old Down syndrome gentleman, on interval high flow oxygen at 60 L and 75% FiO2, comfortable in no apparent distress. HEAD: Normocephalic. EYES: Normal reaction of pupils, equal size. NOSE: Clear with pink turbinates. THROAT: No erythema or exudates. NECK: No masses, no JVD. CHEST: No chest wall deformity. LUNGS: Equal air entry with bibasilar crackles CVS: S1 and S2 normal with no audible murmur, regular rhythm. ABDOMEN: No hepatosplenomegaly, normal bowel sounds, no guarding or rigidity. SPINE: No scoliosis or deformity SKIN: No rashes CENTRAL NERVOUS SYSTEM: No focal deficits, tone is normal in all 4 extremities. EXTREMITIES: There is 1 plus peripheral edema. No clubbing, no cyanosis. Peripheral pulses are intact. - Labs CBC & Chem 7: 10/27/21 04:08 10/28/21 05:50 Labs: Abnormal Lab Results - Last 24 Hours (Table) 10/28/21 Range/Units 05:50 Sodium 132 L (137-145) mmol/L Potassium 3.1 L (3.5-5.1) mmol/L Chloride 73 L* (98-107) mmol/L Carbon Dioxide 49 H* (22-30) mmol/L BUN 50 H (9-20) mg/dL Glucose 146 H (74-99) mg/dL Assessment and Plan Assessment: 1 Acute hypoxemic respiratory failure secondary to suspected aspiration pneumonia, diastolic congestive heart failure and obesity/hypoventilation syndrome. CoVID screen negative. He is currently on AirVo high flow oxygen at 60 L and 70% FiO2. Doing well and out of the ICU. Interactive. Diuresed over 9 L while on Lasix drip 5 mg an hour and Zaroxolyn. 2 History of Down syndrome 3 History of hyperlipidemia 4 History of gastroesophageal reflux disease 5 Obstructive sleep apnea, intolerant to CPAP 6 Obesity/hypoventilation syndrome Plan: The patient was seen and evaluated Discontinue the Lasix drip Lasix 40 mg IV twice a day Discontinue Zaroxolyn Add Diamox 250 mg twice a day 2 doses Follow-up labs in a.m. Titrate down the FiO2 as tolerated Continue BiPAP as needed Aspiration precautions We will continue to follow I, the cosigning physician, performed a history & physical examination of the patient. Lungs sounds with bibasilar crackles. Maintaining O2 saturations in the 90s on 6 L and 70% FiO2 via the AirVo high flow oxygen. I discussed the assessment and plan of care with my nurse practitioner, Capri Hillman. I attest to the above note as dictated by her.
[2021-10-28] MEDS: POTASSIUM CHLORIDE ER 20 MEQ TAB.ER PO SCH ×3 (12:31→23:28)
[2021-10-28] MEDS: SODIUM CHLORIDE 0.9% 500 ML 500 ML IV SCH (15:25)
[2021-10-28] MEDS: FUROSEMIDE 10 MG/ML 4 ML VIAL IV SCH (20:17)
[2021-10-29] MEDS: SODIUM CHLORIDE 0.65% NASAL SPRAY 44 ML BTL NASAL PRN (00:11)
[2021-10-29] MEDS: POTASSIUM CHLORIDE ER 20 MEQ TAB.ER PO SCH ×2 (00:11→01:19)
--- NOTE | 2021-10-29 00:59 | P.PN ---
Subjective Progress Note Date: 10/25/21 Patient is evaluated today as this morning sitting up in the chair, he is on Lasix and lisinopril with a heart with a nonrebreather placed on top of it. Patient is hypoxic with oxygen saturation between 80-89% on initial presentation. This morning he was an Ateam due to hypoxia as well as intractible nausea and vomiting. He was given a dose of IV reglan which made him drowsy. He is hard to arouse during my examination, however, I was able to assist the patient to sit forward and take a few deep breaths to which his oxygen staturation increased to 96-97%. Labs from this morning include a white count of 7.1, hemoglobin 16.3, d-dimer yesterday was 0.82, ABGs show a pH of 7.35, pCO2 90, pO2 77, HCO3 49, CO2 52. Sodium today is 135, potassium 3.8, chloride 86, CO2 41, glucose 103, albumin 3.1, repeat Covid PCR is not detected. Pro- calcitonin on admission was negative at 0.09, BNP 265 the 25th. Abdomen x-ray this morning showed nonspecific abdomen, limited treatment, bibasilar infiltrates. Chest x-ray shows patchy perihilar and basilar infiltrates persistent essentially unchanged. Patient was evaluated by cardiology today who is recommending to hold diuretics for now as patient possibly has contraction alkalosis due to aggressive diuresis. Potassium will be replaced today, lasix held. 10/23/2021 Patient evaluated today in bed in the ICU. He is awake and alert this morning. He is on BiPAP 100%, he did have another episode of nausea vomiting per nurse at the bedside. Vitals today afebrile, heart rate 74, blood pressure 111/65, 93% oxygen saturation. Labs reviewed today show a WBC of 5.5, platelet count 141, sodium 134, potassium 4.3, chloride 86, CO2 41, creatinine 0.57, glucose 148, albumin 3.1. Repeat chest xray today shows patchy perihilar and basilar infiltrates compatible with COVID 19 pneumonia. Although his COVID PCR has been negative x2 this admission. Continues on IV pepcid, IV solu-medrol, IV zosyn, lovenox, and bronchodilators. He is being followed closely by pulmonary/manager of maintenance. 10/25/2021 Patient is currently in the MICU. On BiPAP with 100% FiO2. Chest x-ray showed bibasilar airspace disease and atelectasis. Laboratory data showed WBC 5.9 hemoglobin 16.0 and platelets 162 Sodium 134 potassium 4.1 chloride 89 BUN 21 creatinine 0.61 Patient is being continued on antibiotics with follow-up with Zosyn. On IV Lasix 40. Pulmonary is on board. Continued on duo nebs. Review of systems is difficult to obtain due to patient's lethargy and oxygen support via BiPAP. . Objective - Vital Signs Vital signs: Vital Signs Temp 98.3 F 10/25/21 16:00 Pulse 67 10/25/21 17:00 Resp 25 H 10/25/21 17:00 BP 104/76 10/25/21 17:00 Pulse Ox 93 L 10/25/21 17:00 Intake & Output 10/24/21 10/25/21 10/25/21 18:59 06:59 18:59 Intake Total 325 1075 635 Output Total 555 660 380 Balance -230 415 255 Weight 128 kg 128 kg Intake: IV 100 200 Piperacillin-Tazobactam 3 100 200 .375 gm In Sodium Chloride 0.9% 100 ml @ 25 mls/hr IVPB Q8HR [facility] Rx# :[id number] Intake, IV Titration 225 1075 435 Amount Mvi, Adult No.4 with Vit 60 K 10 ml Trace (Conc-1Ml/ Dose) 1 ml Sodium Chloride 4Meq/ml Vial 32 meq Sodium Phosphate 15 mmol Potassium Chloride 20 meq Magnesium Sulfate gm 1 gm Calcium Gluconate 1 gm In Amino Acids 5 %/ Dextrose 20 % 1,000 ml @ 30 mls/hr IV .Q24H [facility] Rx #:[id number] Piperacillin-Tazobactam 3 100 .375 gm In Sodium Chloride 0.9% 100 ml @ 25 mls/hr IVPB Q8HR [facility] Rx# :[id number] Sodium Chloride 0.9% 1, 225 975 375 000 ml @ 25 mls/hr IV . Q24H [facility] Rx#:[id number] Output: Urine 555 660 380 Other: Voiding Method Indwelling Catheter Indwelling Catheter Indwelling Catheter - Exam PHYSICAL EXAMINATION: GENERAL: The patient is alert and oriented x1 is his baseline, appears in mild respiratory distress at the time of my examination. Well developed, well nourished. on BiPAP. HEENT: Pupils are round and equally reacting to light. EOMI. No scleral icterus. No conjunctival pallor. Normocephalic, atraumatic. No pharyngeal erythema. No thyromegaly. CARDIOVASCULAR: S1 and S2 present. No murmurs, rubs, or gallops. PULMONARY: Breath sounds crackles in the bases ABDOMEN: Soft, nontender, nondistended, normoactive bowel sounds. No palpable organomegaly. Obese abdomen MUSCULOSKELETAL: No joint swelling or deformity. EXTREMITIES: No cyanosis, clubbing, Bilateral lower extremity swelling improved NEUROLOGICAL: Gross neurological examination did not reveal any focal deficits. Pt is lethargic, difficult to obtain a focused neuro exam. SKIN: No rashes. - Labs CBC & Chem 7: 10/27/21 04:08 10/28/21 21:33 Labs: Abnormal Lab Results - Last 24 Hours (Table) 10/25/21 10/25/21 Range/Units 05:23 05:23 MCHC 30.6 L (31.0-37.0) g/dL RDW 18.0 H (11.5-15.5) % Lymphocytes # 0.7 L (1.0-4.8) k/uL Sodium 134 L (137-145) mmol/L Chloride 89 L (98-107) mmol/L Carbon Dioxide 39 H (22-30) mmol/L BUN 21 H (9-20) mg/dL Creatinine 0.61 L (0.66-1.25) mg/dL Glucose 169 H (74-99) mg/dL Assessment and Plan Assessment: Assessment and plan -Acute hypoxic and hypercapnic respiratory failure secondary to aspiration pneumonia, and obesity hypoventilation syndrome, and acute diastolic congestive heart failure. -New-onset the congestive heart failure is to have diastolic dysfunction had a normal ejection fraction. -Obesity hypoventilation syndrome -History of obstructive sleep apnea; does not tolerate CPAP. -Down syndrome -Gastroesophageal reflux disease -Nausea, vomiting possible due to respiratory alkalosis due to acute hypoxic respiratory failure -Possible aspiration pneumonia secondary to above DVT prophylaxis: Lovenox GI: Prophylaxis: Pepcid FULL CODE Plan Monitor oxygen saturation closely Continue on IV antibiotics Continue bronchodilators Continue all other supporitve care Repeat labs in AM Time with Patient: Greater than 30
--- NOTE | 2021-10-29 01:01 | P.PN ---
Subjective Progress Note Date: 10/26/21 Patient is evaluated today as this morning sitting up in the chair, he is on Lasix and lisinopril with a heart with a nonrebreather placed on top of it. Patient is hypoxic with oxygen saturation between 80-89% on initial presentation. This morning he was an Ateam due to hypoxia as well as intractible nausea and vomiting. He was given a dose of IV reglan which made him drowsy. He is hard to arouse during my examination, however, I was able to assist the patient to sit forward and take a few deep breaths to which his oxygen staturation increased to 96-97%. Labs from this morning include a white count of 7.1, hemoglobin 16.3, d-dimer yesterday was 0.82, ABGs show a pH of 7.35, pCO2 90, pO2 77, HCO3 49, CO2 52. Sodium today is 135, potassium 3.8, chloride 86, CO2 41, glucose 103, albumin 3.1, repeat Covid PCR is not detected. Pro- calcitonin on admission was negative at 0.09, BNP 265 the 25th. Abdomen x-ray this morning showed nonspecific abdomen, limited treatment, bibasilar infiltrates. Chest x-ray shows patchy perihilar and basilar infiltrates persistent essentially unchanged. Patient was evaluated by cardiology today who is recommending to hold diuretics for now as patient possibly has contraction alkalosis due to aggressive diuresis. Potassium will be replaced today, lasix held. 10/23/2021 Patient evaluated today in bed in the ICU. He is awake and alert this morning. He is on BiPAP 100%, he did have another episode of nausea vomiting per nurse at the bedside. Vitals today afebrile, heart rate 74, blood pressure 111/65, 93% oxygen saturation. Labs reviewed today show a WBC of 5.5, platelet count 141, sodium 134, potassium 4.3, chloride 86, CO2 41, creatinine 0.57, glucose 148, albumin 3.1. Repeat chest xray today shows patchy perihilar and basilar infiltrates compatible with COVID 19 pneumonia. Although his COVID PCR has been negative x2 this admission. Continues on IV pepcid, IV solu-medrol, IV zosyn, lovenox, and bronchodilators. He is being followed closely by pulmonary/bottomer operator. 10/25/2021 Patient is currently in the MICU. On BiPAP with 100% FiO2. Chest x-ray showed bibasilar airspace disease and atelectasis. Laboratory data showed WBC 5.9 hemoglobin 16.0 and platelets 162 Sodium 134 potassium 4.1 chloride 89 BUN 21 creatinine 0.61 Patient is being continued on antibiotics with follow-up with Zosyn. On IV Lasix 40. Pulmonary is on board. Continued on duo nebs. 10/26/2021 Patient is currently in MICU. Admitted to hospital due to CHF and possible aspiration pneumonia. Chest x-ray today showed persistent bilateral pulmonary infiltrates. Patient is currently off BiPAP and using Airvo at 60 L and FiO2 90% and 100% nonrebreather. Patient is maintained antibiotics now Zosyn. Patient is being continued on. Laboratory showed WBC 5.6 hemoglobin 17.9 and platelets 185 Sodium 138 potassium 4.2 chloride 93 bicarb is 38 BUN 2020 creatinine 0.63 Review of systems is difficult to obtain due to patient's lethargy and oxygen support via BiPAP. . Objective - Vital Signs Vital signs: Vital Signs Temp 98.2 F 10/26/21 21:00 Pulse 73 10/26/21 21:00 Resp 13 10/26/21 21:00 BP 114/91 10/26/21 21:00 Pulse Ox 89 L 10/26/21 21:00 Intake & Output 10/26/21 10/26/21 10/27/21 06:59 18:59 06:59 Intake Total 550 607 75 Output Total 360 1625 1125 Balance 190 -1018 -1050 Weight 128 kg Intake: IV 385 75 .9 KVO 100 60 Furosemide 100 mg In 45 15 Sodium Chloride 0.9% 90 ml @ 5 MG/HR 5 mls/hr IV .Q20H [facility] Rx#:[id number] Piperacillin-Tazobactam 3 240 .375 gm In Sodium Chloride 0.9% 100 ml @ 25 mls/hr IVPB Q8HR [facility] Rx# :[id number] Intake, IV Titration 550 Amount Mvi, Adult No.4 with Vit 330 K 10 ml Trace (Conc-1Ml/ Dose) 1 ml Sodium Chloride 4Meq/ml Vial 32 meq Sodium Phosphate 15 mmol Potassium Chloride 20 meq Magnesium Sulfate gm 1 gm Calcium Gluconate 1 gm In Amino Acids 5 %/ Dextrose 20 % 1,000 ml @ 30 mls/hr IV .Q24H [facility] Rx #:[id number] Sodium Chloride 0.9% 1, 220 000 ml @ 25 mls/hr IV . Q24H [facility] Rx#:[id number] Oral 222 Output: Urine 360 0515 1125 Other: Voiding Method Indwelling Catheter Indwelling Catheter - Exam PHYSICAL EXAMINATION: GENERAL: The patient is alert and oriented x1 is his baseline, appears in mild respiratory distress at the time of my examination. Well developed, well nourished. on BiPAP. HEENT: Pupils are round and equally reacting to light. EOMI. No scleral icterus. No conjunctival pallor. Normocephalic, atraumatic. No pharyngeal erythema. No thyromegaly. CARDIOVASCULAR: S1 and S2 present. No murmurs, rubs, or gallops. PULMONARY: Breath sounds crackles in the bases ABDOMEN: Soft, nontender, nondistended, normoactive bowel sounds. No palpable organomegaly. Obese abdomen MUSCULOSKELETAL: No joint swelling or deformity. EXTREMITIES: No cyanosis, clubbing, Bilateral lower extremity swelling improved NEUROLOGICAL: Gross neurological examination did not reveal any focal deficits. Pt is lethargic, difficult to obtain a focused neuro exam. SKIN: No rashes. - Labs CBC & Chem 7: 10/27/21 04:08 10/28/21 21:33 Labs: Abnormal Lab Results - Last 24 Hours (Table) 10/26/21 10/26/21 10/26/21 Range/Units 03:43 03:43 11:43 RBC 6.20 H (4.30-5.90) m/uL Hgb 17.9 H (13.0-17.5) gm/dL Hct 59.5 H* (39.0-53.0) % MCHC 30.1 L (31.0-37.0) g/dL RDW 18.1 H (11.5-15.5) % Lymphocytes # (Manual) 0.34 L (1.0-4.8) k/uL ABG pCO2 73 H* (35-45) mmHg ABG pO2 63 L (83-108) mmHg ABG HCO3 45 H* (21-25) mmol/L ABG Total CO2 48 H (19-24) mmol/L ABG O2 Saturation 92.0 L (94-97) % Chloride 93 L (98-107) mmol/L Carbon Dioxide 38 H (22-30) mmol/L BUN 22 H (9-20) mg/dL Creatinine 0.63 L (0.66-1.25) mg/dL Glucose 171 H (74-99) mg/dL Magnesium 2.4 H (1.6-2.3) mg/dL Assessment and Plan Assessment: Assessment and plan -Acute hypoxic and hypercapnic respiratory failure secondary to aspiration pneumonia, and obesity hypoventilation syndrome, and acute diastolic congestive heart failure. -New-onset the congestive heart failure is to have diastolic dysfunction had a normal ejection fraction. -Obesity hypoventilation syndrome -History of obstructive sleep apnea; does not tolerate CPAP. -Down syndrome -Gastroesophageal reflux disease -Nausea, vomiting possible due to respiratory alkalosis due to acute hypoxic respiratory failure -Possible aspiration pneumonia secondary to above DVT prophylaxis: Lovenox GI: Prophylaxis: Pepcid FULL CODE Plan Monitor oxygen saturation closely Continue on IV antibiotics Continue bronchodilators Continue all other supporitve care Repeat labs in AM
--- NOTE | 2021-10-29 01:04 | P.PN ---
Subjective Progress Note Date: 10/27/21 Patient is evaluated today as this morning sitting up in the chair, he is on Lasix and lisinopril with a heart with a nonrebreather placed on top of it. Patient is hypoxic with oxygen saturation between 80-89% on initial presentation. This morning he was an Ateam due to hypoxia as well as intractible nausea and vomiting. He was given a dose of IV reglan which made him drowsy. He is hard to arouse during my examination, however, I was able to assist the patient to sit forward and take a few deep breaths to which his oxygen staturation increased to 96-97%. Labs from this morning include a white count of 7.1, hemoglobin 16.3, d-dimer yesterday was 0.82, ABGs show a pH of 7.35, pCO2 90, pO2 77, HCO3 49, CO2 52. Sodium today is 135, potassium 3.8, chloride 86, CO2 41, glucose 103, albumin 3.1, repeat Covid PCR is not detected. Pro- calcitonin on admission was negative at 0.09, BNP 265 the 25th. Abdomen x-ray this morning showed nonspecific abdomen, limited treatment, bibasilar infiltrates. Chest x-ray shows patchy perihilar and basilar infiltrates persistent essentially unchanged. Patient was evaluated by cardiology today who is recommending to hold diuretics for now as patient possibly has contraction alkalosis due to aggressive diuresis. Potassium will be replaced today, lasix held. 10/23/2021 Patient evaluated today in bed in the ICU. He is awake and alert this morning. He is on BiPAP 100%, he did have another episode of nausea vomiting per nurse at the bedside. Vitals today afebrile, heart rate 74, blood pressure 111/65, 93% oxygen saturation. Labs reviewed today show a WBC of 5.5, platelet count 141, sodium 134, potassium 4.3, chloride 86, CO2 41, creatinine 0.57, glucose 148, albumin 3.1. Repeat chest xray today shows patchy perihilar and basilar infiltrates compatible with COVID 19 pneumonia. Although his COVID PCR has been negative x2 this admission. Continues on IV pepcid, IV solu-medrol, IV zosyn, lovenox, and bronchodilators. He is being followed closely by pulmonary/manager paper. 10/25/2021 Patient is currently in the MICU. On BiPAP with 100% FiO2. Chest x-ray showed bibasilar airspace disease and atelectasis. Laboratory data showed WBC 5.9 hemoglobin 16.0 and platelets 162 Sodium 134 potassium 4.1 chloride 89 BUN 21 creatinine 0.61 Patient is being continued on antibiotics with follow-up with Zosyn. On IV Lasix drip. Pulmonary is on board. Continued on duo nebs. 10/26/2021 Patient is currently in MICU. Admitted to hospital due to CHF and possible aspiration pneumonia. Chest x-ray today showed persistent bilateral pulmonary infiltrates. Patient is currently off BiPAP and using Airvo at 60 L and FiO2 90% and 100% nonrebreather. Patient is maintained antibiotics now Zosyn. on lasix drip Patient is being continued on. Laboratory showed WBC 5.6 hemoglobin 17.9 and platelets 185 Sodium 138 potassium 4.2 chloride 93 bicarb is 38 BUN 2020 creatinine 0.63 10/27/2021 Patient is in the MICU. Awake and alert. Off BiPAP and currently onAirvo and saturating more than 90%. Patient is being continued on Lasix drip and is also on Zaroxolyn. Currently on TPN for nutritional support. Patient is being followed on antibiotics in the form of Zosyn. Laboratory data showed WBC 7.5 hemoglobin 18.0 and platelets 177 BUN 33 and creatinine 0.67 sodium 132 and potassium 4.1 chloride 82. Patient is being transferred to medical floor today. Review of systems is difficult to obtain due to patient's lethargy and oxygen support, . Current medications reviewed. Objective - Vital Signs Vital signs: Vital Signs Temp 98.1 F 10/27/21 08:00 Pulse 58 L 10/27/21 12:00 Resp 10 L 10/27/21 12:00 BP 113/66 10/27/21 12:00 Pulse Ox 91 L 10/27/21 12:00 Intake & Output 10/26/21 10/27/21 10/27/21 18:59 06:59 18:59 Intake Total 607 1105.583 80 Output Total 1625 4375 1250 Balance -2054 -4906.417 -1170 Intake: IV 385 315 80 .9 KVO 100 180 80 Furosemide 100 mg In 45 35 Sodium Chloride 0.9% 90 ml @ 5 MG/HR 5 mls/hr IV .Q20H [facility] Rx#:[id number] Piperacillin-Tazobactam 3 240 100 .375 gm In Sodium Chloride 0.9% 100 ml @ 25 mls/hr IVPB Q8HR [facility] Rx# :[id number] Intake, IV Titration 70.583 Amount Furosemide 100 mg In 70.583 Sodium Chloride 0.9% 90 ml @ 5 MG/HR 5 mls/hr IV .Q20H [facility] Rx#:[id number] Oral 222 720 Output: Urine 1625 4375 1250 Other: Voiding Method Indwelling Catheter Indwelling Catheter Indwelling Catheter - Exam PHYSICAL EXAMINATION: GENERAL: The patient is alert and oriented x1 is his baseline, appears in mild respiratory distress at the time of my examination. Well developed, well nourished. on BiPAP. HEENT: Pupils are round and equally reacting to light. EOMI. No scleral icterus. No conjunctival pallor. Normocephalic, atraumatic. No pharyngeal erythema. No thyromegaly. CARDIOVASCULAR: S1 and S2 present. No murmurs, rubs, or gallops. PULMONARY: Breath sounds crackles in the bases ABDOMEN: Soft, nontender, nondistended, normoactive bowel sounds. No palpable organomegaly. Obese abdomen MUSCULOSKELETAL: No joint swelling or deformity. EXTREMITIES: No cyanosis, clubbing, Bilateral lower extremity swelling improved NEUROLOGICAL: Gross neurological examination did not reveal any focal deficits. Pt is lethargic, difficult to obtain a focused neuro exam. SKIN: No rashes. - Labs CBC & Chem 7: 10/27/21 04:08 10/28/21 21:33 Labs: Abnormal Lab Results - Last 24 Hours (Table) 10/27/21 10/27/21 Range/Units 04:08 04:08 Hgb 18.0 H (13.0-17.5) gm/dL RDW 18.2 H (11.5-15.5) % Lymphocytes # 0.7 L (1.0-4.8) k/uL Sodium 132 L (137-145) mmol/L Chloride 82 L (98-107) mmol/L Carbon Dioxide 38 H (22-30) mmol/L BUN 33 H (9-20) mg/dL Glucose 247 H (74-99) mg/dL Assessment and Plan Assessment: Assessment and plan -Acute hypoxic and hypercapnic respiratory failure secondary to aspiration pneumonia, and obesity hypoventilation syndrome, and acute diastolic congestive heart failure. -New-onset the congestive heart failure is to have diastolic dysfunction had a normal ejection fraction. -Obesity hypoventilation syndrome -History of obstructive sleep apnea; does not tolerate CPAP. -Down syndrome -Gastroesophageal reflux disease -Nausea, vomiting possible due to respiratory alkalosis due to acute hypoxic respiratory failure -Possible aspiration pneumonia secondary to above DVT prophylaxis: Lovenox GI: Prophylaxis: Pepcid FULL CODE Plan Monitor oxygen saturation closely Continue on IV antibiotics Continue bronchodilators Continue all other supporitve care Repeat labs in AM Time with Patient: Greater than 30
[2021-10-29] MEDS ORDERED: POTASSIUM CHLORIDE 20 MEQ in WATER FOR INJECTION 1 100ML.BAG IVPB STA (01:05)
--- NOTE | 2021-10-29 01:06 | P.PN ---
Subjective Progress Note Date: 10/28/21 Patient is evaluated today as this morning sitting up in the chair, he is on Lasix and lisinopril with a heart with a nonrebreather placed on top of it. Patient is hypoxic with oxygen saturation between 80-89% on initial presentation. This morning he was an Ateam due to hypoxia as well as intractible nausea and vomiting. He was given a dose of IV reglan which made him drowsy. He is hard to arouse during my examination, however, I was able to assist the patient to sit forward and take a few deep breaths to which his oxygen staturation increased to 96-97%. Labs from this morning include a white count of 7.1, hemoglobin 16.3, d-dimer yesterday was 0.82, ABGs show a pH of 7.35, pCO2 90, pO2 77, HCO3 49, CO2 52. Sodium today is 135, potassium 3.8, chloride 86, CO2 41, glucose 103, albumin 3.1, repeat Covid PCR is not detected. Pro- calcitonin on admission was negative at 0.09, BNP 265 the 25th. Abdomen x-ray this morning showed nonspecific abdomen, limited treatment, bibasilar infiltrates. Chest x-ray shows patchy perihilar and basilar infiltrates persistent essentially unchanged. Patient was evaluated by cardiology today who is recommending to hold diuretics for now as patient possibly has contraction alkalosis due to aggressive diuresis. Potassium will be replaced today, lasix held. 10/23/2021 Patient evaluated today in bed in the ICU. He is awake and alert this morning. He is on BiPAP 100%, he did have another episode of nausea vomiting per nurse at the bedside. Vitals today afebrile, heart rate 74, blood pressure 111/65, 93% oxygen saturation. Labs reviewed today show a WBC of 5.5, platelet count 141, sodium 134, potassium 4.3, chloride 86, CO2 41, creatinine 0.57, glucose 148, albumin 3.1. Repeat chest xray today shows patchy perihilar and basilar infiltrates compatible with COVID 19 pneumonia. Although his COVID PCR has been negative x2 this admission. Continues on IV pepcid, IV solu-medrol, IV zosyn, lovenox, and bronchodilators. He is being followed closely by pulmonary/rn unit manager. 10/25/2021 Patient is currently in the MICU. On BiPAP with 100% FiO2. Chest x-ray showed bibasilar airspace disease and atelectasis. Laboratory data showed WBC 5.9 hemoglobin 16.0 and platelets 162 Sodium 134 potassium 4.1 chloride 89 BUN 21 creatinine 0.61 Patient is being continued on antibiotics with follow-up with Zosyn. On IV Lasix drip. Pulmonary is on board. Continued on duo nebs. 10/26/2021 Patient is currently in MICU. Admitted to hospital due to CHF and possible aspiration pneumonia. Chest x-ray today showed persistent bilateral pulmonary infiltrates. Patient is currently off BiPAP and using Airvo at 60 L and FiO2 90% and 100% nonrebreather. Patient is maintained antibiotics now Zosyn. on lasix drip Patient is being continued on. Laboratory showed WBC 5.6 hemoglobin 17.9 and platelets 185 Sodium 138 potassium 4.2 chloride 93 bicarb is 38 BUN 2020 creatinine 0.63 10/27/2021 Patient is in the MICU. Awake and alert. Off BiPAP and currently onAirvo and saturating more than 90%. Patient is being continued on Lasix drip and is also on Zaroxolyn. Currently on TPN for nutritional support. Patient is being followed on antibiotics in the form of Zosyn. Laboratory data showed WBC 7.5 hemoglobin 18.0 and platelets 177 BUN 33 and creatinine 0.67 sodium 132 and potassium 4.1 chloride 82. Patient is being transferred to medical floor today. 10/28/2021 Patient is in the medical floor. Sitting in the chair comfortably. On Airvo high flow oxygen at 6 L and 75% FiO2. Patient did not require BiPAP last night. Patient is on Lasix drip changed to IV Lasix. Also on Zaroxolyn. Patient does have negative balance. Laboratory data showed sodium 132 potassium 3.1 chloride 73 bicarb is 49 BUN 15 creatinine 0.94 and magnesium 1.7 Review of systems is difficult to obtain due to patient's lethargy and oxygen support, . Current medications reviewed. Objective - Vital Signs Vital signs: Vital Signs Temp 98 F 10/28/21 13:02 Pulse 68 10/28/21 19:57 Resp 23 10/28/21 13:02 BP 120/71 10/28/21 13:02 Pulse Ox 95 10/28/21 13:02 Intake & Output 10/28/21 10/28/21 10/29/21 06:59 18:59 06:59 Intake Total 1620 Output Total 2700 1100 Balance -2700 520 Intake: Oral 1620 Output: Urine 2700 1100 Coude 2700 1100 Other: Voiding Method Indwelling Catheter Indwelling Catheter - Exam PHYSICAL EXAMINATION: GENERAL: The patient is alert and oriented x1 is his baseline, appears in mild respiratory distress at the time of my examination. Well developed, well nourished. on BiPAP. HEENT: Pupils are round and equally reacting to light. EOMI. No scleral icterus. No conjunctival pallor. Normocephalic, atraumatic. No pharyngeal erythema. No thyromegaly. CARDIOVASCULAR: S1 and S2 present. No murmurs, rubs, or gallops. PULMONARY: Breath sounds crackles in the bases ABDOMEN: Soft, nontender, nondistended, normoactive bowel sounds. No palpable organomegaly. Obese abdomen MUSCULOSKELETAL: No joint swelling or deformity. EXTREMITIES: No cyanosis, clubbing, Bilateral lower extremity swelling improved NEUROLOGICAL: Gross neurological examination did not reveal any focal deficits. Pt is lethargic, difficult to obtain a focused neuro exam. SKIN: No rashes. - Labs CBC & Chem 7: 10/27/21 04:08 10/28/21 21:33 Labs: Abnormal Lab Results - Last 24 Hours (Table) 10/28/21 Range/Units 05:50 Sodium 132 L (137-145) mmol/L Potassium 3.1 L (3.5-5.1) mmol/L Chloride 73 L* (98-107) mmol/L Carbon Dioxide 49 H* (22-30) mmol/L BUN 50 H (9-20) mg/dL Glucose 146 H (74-99) mg/dL Assessment and Plan Assessment: Assessment and plan -Acute hypoxic and hypercapnic respiratory failure secondary to aspiration pneumonia, and obesity hypoventilation syndrome, and acute diastolic congestive heart failure. -New-onset the congestive heart failure is to have diastolic dysfunction had a normal ejection fraction. -Obesity hypoventilation syndrome -History of obstructive sleep apnea; does not tolerate CPAP. -Down syndrome -Gastroesophageal reflux disease -Nausea, vomiting possible due to respiratory alkalosis due to acute hypoxic res piratory failure -Possible aspiration pneumonia secondary to above DVT prophylaxis: Lovenox GI: Prophylaxis: Pepcid FULL CODE Plan Monitor oxygen saturation closely Continue on IV antibiotics Continue bronchodilators Continue all other supporitve care Repeat labs in AM
[2021-10-29] MEDS: MAGNESIUM SULFATE-D5W PMX 1 GM in DEXTROSE/WATER 1 100ML.BAG IVPB SCH ×2 (01:21→02:16)
[2021-10-29] MEDS: METOCLOPRAMIDE 5 MG/ML 2 ML VIAL IVP SCH ×4 (05:33→23:15)
[2021-10-29 07:36] LABS: Magnesium 2.6 mg/dL (1.6-2.3); Phosphorus 3.8 mg/dL (2.5-4.5)
[2021-10-29 08:06] LABS: Anisocytosis Slight; Basophils % (A) 0 %; Eosinophils # (A) 0.1 k/uL (0-0.7); Eosinophils % (A) 1 %; HGB 18.6 gm/dL (13.0-17.5); Hypochromasia Marked; Lymphocytes % (A) 12 %; MCH 28.3 pg (25.0-35.0); MCHC 30.2 g/dL (31.0-37.0); MCV 93.6 fL (80.0-100.0); Mean Platelet Volume 11.8; Monocytes # (A) 0.9 k/uL (0-1.0); Monocytes % (A) 11 %; Neutrophils % (A) 74 %; Platelet Count 155 k/uL (150-450); Poikilocytosis Slight; RBC 6.56 m/uL (4.30-5.90); RDW 18.4 % (11.5-15.5); WBC 8.1 k/uL (3.8-10.6)
[2021-10-29 08:20] LABS: HCT 61.3 % (39.0-53.0)
[2021-10-29] MEDS: IPRATROPIUM-ALBUTEROL 3 ML NEB INHALATION SCH ×4 (08:30→20:46)
[2021-10-29] MEDS: PIPERACILLIN-TAZOBACTAM 3.375 GM in SODIUM CHLORIDE 0.9% 100 ML IVPB SCH ×3 (08:38→23:15)
[2021-10-29] MEDS: FUROSEMIDE 10 MG/ML 4 ML VIAL IV SCH ×2 (08:38→20:20)
[2021-10-29] MEDS: ATORVASTATIN 40 MG TAB PO SCH (08:38)
[2021-10-29] MEDS: ENOXAPARIN 60 MG/0.6 ML SYRINGE SQ SCH (08:38)
[2021-10-29] MEDS: FAMOTIDINE 20 MG/2 ML VIAL IV SCH ×2 (08:38→20:20)
[2021-10-29 10:03] LABS: Large Platelets Present
[2021-10-29 11:38] LABS: African American GFR (CKD) 117.5 (60.0-200.0); Albumin 3.5 g/dL (3.8-4.9); Albumin/Globulin Ratio 1.09 (1.60-3.17); Anion Gap 15.5 mmol/L (10.00-18.00); BUN/Creat Ratio 39.33 Ratio (12.00-20.00); Blood Urea Nitrogen 35.4 mg/dL (9.0-27.0); Calcium 9.4 mg/dL (8.7-10.3); Carbon Dioxide 38.5 mmol/L (20.0-27.5); Globulin 3.2 g/dL (1.6-3.3); Non-African American GFR(CKD) 101.4 (60.0-200.0); Potassium 3.3 mmol/L (3.5-5.5); Total Bilirubin 1.6 mg/dL (0.30-1.20); Total Protein 6.7 g/dL (6.2-8.2)
[2021-10-29] MEDS: POTASSIUM CHLORIDE 20 MEQ in WATER FOR INJECTION 1 100ML.BAG IVPB SCH ×2 (13:15→16:13)
[2021-10-29] MEDS: SODIUM CHLORIDE 0.9% 500 ML 500 ML IV SCH (13:15)
--- NOTE | 2021-10-29 13:21 | P.PN ---
Subjective Progress Note Date: 10/29/21 This is a pleasant 45-year-old gentleman with a known history of Down syndrome, hyperlipidemia, obstructive sleep apnea but intolerant to CPAP, gastroesophageal reflux disease. He has a poor historian. He was brought into the emergency room yesterday after his family found him to be short of breath with cough and swelling of the lower extremities. He is quite hypoxic on arrival by EMS and was placed on nonrebreather mass. His x-ray reveals evidence of cardiomegaly with diffuse interstitial edema and basilar infiltrates. EKG reveals normal sinus rhythm without acute ST or T wave abnormalities. White count 6.9. Hemoglobin 17.1. Sodium 134. Creatinine 0.65. Lactic acid 1.5. AST 93. ALT 70. ProBNP 2470. Troponin 0.025. Chavira virus by PCR not detected. He was initiated on IV diuretics, antibiotics, bronchodilators and steroids. He is seen today in consultation in the emergency department. He is currently sitting up in a stretcher. Awake and alert in no acute distress. He is requiring 15 L high flow nasal cannula to maintain O2 saturation in the 90s. He's been afebrile. Hemodynamically stable. So far he is diuresed 1300 ML's. Weight 127 kg. On 10/19/2021 patient seen in follow-up on medical surgical floor, this morning his breathing was significantly labored, rapid response team was called, and patient was placed on BiPAP support with pressures of 12 and 5 and FiO2 100%. He continues on IV diuretics, he is currently on Lasix 40 mg every 12 hours, he is diuresing quite extensively, and he is currently in negative 5.3 L net fluid balance over the last 24 hours, lung sounds reveal diffuse crackles and diminished breath sounds, with slightly better aeration at the left lung. Bose catheter is in, and draining large amount of clear yellow urine, patient is aw jemal and alert, he is tolerating BiPAP support quite well, his been afebrile, no complaints of chest pain, his chest x-ray today shows stable bilateral infiltrates and pleural effusion. His pro calcitonin level was negative his antibiotics were discontinued, steroids have been discontinued, patient has been started on nebulized treatments. BMP results have been reviewed showing sodium of 143, potassium is 4.3, chloride is 94, CO2 is 39, BUN of 14, creatinine 0.7. On 10/20/2021 patient seen in follow-up on medical surgical floor. His breathing has significantly improved with diuresis, he is currently off BiPAP support, and on 15 L per high flow nasal cannula, his pulse ox is 94%, breathing very comfortably, lung sounds are diminished, without rales or wheezes, however patient is a shallow breather, he needs encouragement to take deep breaths and cough. No coughing noted, his been afebrile, we added Zosyn for his history of aspiration related to his fast eating habits. However his pro calcitonin level has been negative, but in view of his hypoxia we will cover him with Zosyn empir ically. He is in -3470 mL net fluid balance over the last 24 hours, lower extremity edema is improving, he remains on IV Lasix at 40 mg every 12 hours, he is on DuoNeb nebulized treatments, he is on Pepcid. We'll add Lovenox for DVT prophylaxis, today's labs have been reviewed showing white blood cell count of 9.2, hemoglobin of 16.2, sodium is 140, potassium is 4.1, chloride is 89, CO2 is 38, BUN of 13, creatinine 0.8. No nausea or vomiting, no diarrhea. He is feeling hungry, he would like to eat Reevaluated today on 10/21/21, patient is back on BiPAP today. And he is on the percent FiO2 feeling better breathing easier, but had a bit of a setback and requiring more FiO2 to maintain adequate oxygenation. Patient remains on diuretics, remains on antibiotics empirically, furosemide is at 40 mg IV push every 12 hours. Patient is marginal at best. He is not a great historian but he does not seem to be in distress on BiPAP. Labs today showed BNP level of 265, his blood sugar was 180. WBC count is 9.4. On 10/22/2021 patient seen in follow-up on medical surgical floor. He is cu rrently on BiPAP of 12 and 500% FiO2, his pulse ox is 95-97%, and his FiO2 will be cut back to 80%, patient has been coming off the BiPAP on 15 L high flow to it however she quickly desaturates, and has to return to BiPAP, otherwise he is breathing comfortably, his lung sounds are diminished, I did not appreciate any crackles or wheezing. He remains on IV Lasix 40 mg every 12 hours, And he is in negative 4.6 L net fluid balance over the last 24 hours, lower extremity edema is improving, yesterday chest x-ray showing interval decrease in bilateral airspace and interstitial opacities. On 10/23/2021 patient seen in follow-up on medical surgical floor. Earlier today he was on BiPAP support, with pressures of 12 and 5 and FiO2 of 100%, however he started vomiting, BiPAP was removed, patient was placed on Airvo, he was given a dose of Reglan, rapid response team was called, abdominal x-ray was obtained, showing nonspecific abdomen. he denies any abdominal pain, abdomen is soft, he did have a bowel movement yesterday. Chest x-ray showed patchy perihilar and basilar infiltrates, without significant change. Patient has been extensively diuresed, he is in -2.6 L net fluid balance over the last 24 hours. Resolved volume contraction alkalosis, his CO2 is up to 41, sodium was 135, pot assium 3.8, chloride is 86, B1 is 14 creatinine 0.6. Blood gas showed pO2 of 77, pCO2 of 90, pH is 7.35, consistent with chronic hypercapnic respiratory failure. D-dimer was not significantly elevated only 0.82, low stemming Doppler showed no evidence of DVT. No cough, no chest pain, no hemoptysis. The patient is suspected to be aspirating, and she has been on Zosyn for last 48 hours, today's labs show normal white count of 7.1, hemoglobin 16.3 proBNP level was about 265, and this was a significantly improved value from admission which was 2470 Reevaluated today on 10/24/21, patient is now in the ICU, placed back on BiPAP 16/800%, patient was noted to be placed on non-rebreather mask and airvo last night, and the patient is noted to be a bit lethargic but arousable. I recommended immediate placement on BiPAP, and this was done. His CT angiogram of the chest done yesterday and no evidence of pulmonary embolism as expected however it did show bilateral infiltrates, and I'm still suspicious that the patient is developing aspiration pneumonia as he did in the past. Patient does have a chronic history of aspiration pneumonia. WBC count today is 5.5 hemoglobin is 15.8. Normal basic metabolic profile is normal renal profile is normal bicarb is 41. Patient remains on updrafts, is also on Lovenox extremely milligrams twice a day and I will cut it down to 40 mg subcu daily remains on methylprednisolone, and he is also on Zosyn. Reevaluated today on 10/25/21, remains in the ICU, sitting at a bedside chair, remains on BiPAP, he is on 100% FiO2, IPAP of 16 and EPAP of 8, patient seems to be comfortable and he is not in distress. I recommended tapering down his FiO2 however the patient is to stay on BiPAP, and is to stay in the ICU for today. Chest x-ray continues show by basilar airspace disease and atelectasis. CBC is relatively normal, basic metabolic profile is normal bicarb is 39. ABG prior to transferring the patient to the ICU on BiPAP showed a pO2 of 54 pCO2 95 pH of 7.33 and this was 2 days ago. 10/26/2021, the patient is being seen in follow-up in intensive care unit. 45-year-old male patient with known history of Down syndrome, currently on a BiPAP for respiratory support due to palpitations of CHF and possible aspiration. Repeat chest x-ray was done today and it shows again persistent bilateral pulmonary infiltrates in the lower lung colon. Mediastinum is less wide compared to yesterday. There may be some improvement in the volume status. There is no significant cardiomegaly on today's chest x-ray. Meanwhile, the patient's is currently off the BiPAP. He is using Airvo at 60 L with an FiO2 of 90% in addition to 100% nonrebreather facemask and his current pulse ox is in the order of 85%. His current cardiac rhythm is sinus. His fluid balance over the past 24 hours has been +185 mL. The patient however is producing urine outp ut and the urine output is in order of 25-30 mL an hour.. He is currently on IV Zosyn covering him for aspiration pneumonia. He is nothing by mouth for now and the patient is receiving PPN for nutritional support. On today's blood work, his white cell count of 5.6 with a hemoglobin of 17.9, platelets of 185, BUN of 22 with a creatinine of 0.6 and the sodium level is at 138. Meanwhile, his echo cardiogram that was done on 10/18/2021 showed a preserved LV function with an ejection fraction of 50-55%, no significant valvular abnormalities have been noted. The patient pro-calcitonin level and time of admission was 0.09. The patient's proBNP level at the time of admission was 2470 and it dropped down to 265. 10/27/2021, the patient is doing well. As the patient is awake and alert. The patient is off BiPAP and the patient is currently on Airvo 60 L of 5-70%. The patient is also utilizing on and off 100% nonrebreather facemask. The patient was started on a Lasix drip yesterday 5 mg an hour. The patient is also on Zaroxolyn 2.5 mg twice a day. Overall fluid balance is -4.2 L over the past 24 hours. Meanwhile, the patient feels less short of breath. Chest x-ray still showing pulmonary edema and bilateral pleural effusions. There may be some limited improvement in the volume status bilaterally. Clinically the patient is more stable and his breathing is not labored this point in time. In terms of his blood work, the patient's sodium level today is at 132 with a potassium level of 4.1 and serum bicarbonate 38. The blood gas showed a pH of 7.4 with a pCO2 of 73 and pO2 of 63 from yesterday and this was done and FiO2 of 70% while being on Airvo at 60 L. The white cell count today is at 7.5 with hemoglobin of 18 and platelet count of 177. In terms of treatment, the patient is still on Lasix drip and Zaroxolyn. The patient is also on empiric antibiotic coverage w ith IV Zosyn covering for aspiration pneumonia. In terms of his swallow, he is able to swallow. I think it's reasonable to advance his diet and discontinue TPN for now. The patient is seen today 10/28/2021 in follow-up on the regular medical floor. He is currently sitting up in a chair at the bedside. Awake and alert in no acute distress. He remains on AirVo high flow oxygen at 60 L and 75% FiO2. He did not require the BiPAP last night. Sodium 132. Potassium 3.1. Chloride 73. Bicarb 49. BUN 50. Creatinine 0.94. Glucose 146. He is currently on a Lasix drip at 5 mg per hour. He is also on Zaroxolyn. He is in -9 L balance the past 24-48 hours. Weight of 128 kg. He remains on antibiotics in the form of Zosyn. Lovenox for DVT prophylaxis. Continue bronchodilators. The patient is seen today 10/29/2021 in follow-up on the regular medical floor. He is awake and alert in no acute distress. Sitting up in a chair at the bedside. He remains on AirVo high flow oxygen at 60 L and 85% FiO2. He is maintaining O2 saturations in the low 90s. White count 8.1. Hemoglobin 18.6. Sodium 135. Potassium 2.3. Bicarb 38. Glucose 123. Creatinine 0.9. AST 41. ALT 41. He remains on Lovenox, bronchodilators. IV diuretics. Remains in a - 0.9 L balance. Antibiotics in the form of Zosyn. He has not utilized the BiPAP. Objective - Vital Signs Vital signs: Vital Signs Temp 98.5 F 10/29/21 12:55 Pulse 63 10/29/21 12:55 Resp 17 10/29/21 12:55 BP 121/72 10/29/21 12:55 Pulse Ox 91 L 10/29/21 12:55 Intake & Output 10/28/21 10/29/21 10/29/21 18:59 06:59 18:59 Intake Total 1620 800 Output Total 1100 2700 1000 Balance 520 -1900 -1000 Weight 115 kg Intake: Intake, IV Titration 400 Amount Piperacillin-Tazobactam 3 400 .375 gm In Sodium Chloride 0.9% 100 ml @ 25 mls/hr IVPB Q8HR [facility] Rx# :[id number] Oral 1620 400 Output: Urine 1100 2700 1000 Coude 1100 Other: Voiding Method Indwelling Catheter Indwelling Catheter Indwelling Catheter - Exam GENERAL EXAM: Alert, interactive, very pleasant 45-year-old Down syndrome gentleman, on interval high flow oxygen at 60 L and 85% FiO2, comfortable in no apparent distress. HEAD: Normocephalic. EYES: Normal reaction of pupils, equal size. NOSE: Clear with pink turbinates. THROAT: No erythema or exudates. NECK: No masses, no JVD. CHEST: No chest wall deformity. LUNGS: Equal air entry with bibasilar crackles CVS: S1 and S2 normal with no audible murmur, regular rhythm. ABDOMEN: No hepatosplenomegaly, normal bowel sounds, no guarding or rigidity. SPINE: No scoliosis or deformity SKIN: No rashes CENTRAL NERVOUS SYSTEM: No focal deficits, tone is normal in all 4 extremities. EXTREMITIES: There is 1 plus peripheral edema. No clubbing, no cyanosis. Peripheral pulses are intact. - Labs CBC & Chem 7: 10/29/21 06:43 10/29/21 06:43 Labs: Abnormal Lab Results - Last 24 Hours (Table) 10/28/21 10/29/21 10/29/21 Range/Units 21:33 06:43 06:43 RBC 6.56 H (4.30-5.90) m/uL Hgb 18.6 H (13.0-17.5) gm/dL Hct 61.3 H* (39.0-53.0) % MCHC 30.2 L (31.0-37.0) g/dL RDW 18.4 H (11.5-15.5) % Potassium 2.8 L 3.3 L (3.5-5.1) mmol/L Chloride 81 L (96-109) mmol/L Carbon Dioxide 38.5 H (20.0-27.5) mmol/L BUN 35.4 H (9.0-27.0) mg/dL BUN/Creatinine Ratio 39.33 H (12.00-20.00) Ratio Glucose 123 H (70-110) mg/dL Magnesium (1.6-2.3) mg/dL Total Bilirubin 1.60 H (0.30-1.20) mg/dL AST 41 H (14-35) U/L Albumin 3.5 L (3.8-4.9) g/dL Albumin/Globulin Ratio 1.09 L (1.60-3.17) g/dL 10/29/21 Range/Units 06:43 RBC (4.30-5.90) m/uL Hgb (13.0-17.5) gm/dL Hct (39.0-53.0) % MCHC (31.0-37.0) g/dL RDW (11.5-15.5) % Potassium (3.5-5.1) mmol/L Chloride (96-109) mmol/L Carbon Dioxide (20.0-27.5) mmol/L BUN (9.0-27.0) mg/dL BUN/Creatinine Ratio (12.00-20.00) Ratio Glucose (70-110) mg/dL Magnesium 2.6 H (1.6-2.3) mg/dL Total Bilirubin (0.30-1.20) mg/dL AST (14-35) U/L Albumin (3.8-4.9) g/dL Albumin/Globulin Ratio (1.60-3.17) g/dL Assessment and Plan Assessment: 1 Acute hypoxemic respiratory failure secondary to suspected aspiration pneumonia, diastolic congestive heart failure and obesity/hypoventilation syndrome. CoVID screen negative. He is currently on AirVo high flow oxygen at 60 L and 70% FiO2. Doing well and out of the ICU. Interactive. Diuresed another 1.9 L. He remains on IV diuretics. 2 History of Down syndrome 3 History of hyperlipidemia 4 History of gastroesophageal reflux disease 5 Obstructive sleep apnea, intolerant to CPAP 6 Obesity/hypoventilation syndrome Plan: The patient was seen and evaluated Sitting up in the chair, stable Titrate down the FiO2 as tolerated Continue BiPAP as needed Aspiration precautions Follow-up chest x-ray in the a.m. We will continue to follow I, the cosigning physician, performed a history & physical examination of the patient. Lungs sounds with bibasilar crackles. Maintaining O2 saturations in the 90s on 60 L and 85% FiO2 via the AirVo high flow oxygen. I discussed the assessment and plan of care with my nurse practitioner, Capri Hillman. I attest to the above note as dictated by her.
[2021-10-29] MEDS: ACETAMINOPHEN TAB 325 MG TAB PO PRN (19:57)
[2021-10-29] MEDS ORDERED: HYDROcodone/APAP 7.5-325MG 1 EACH TAB PO PRN (20:16)
--- NOTE | 2021-10-30 02:50 | P.PN ---
Subjective Progress Note Date: 10/29/21 Patient is evaluated today as this morning sitting up in the chair, he is on Lasix and lisinopril with a heart with a nonrebreather placed on top of it. Patient is hypoxic with oxygen saturation between 80-89% on initial presentation. This morning he was an Ateam due to hypoxia as well as intractible nausea and vomiting. He was given a dose of IV reglan which made him drowsy. He is hard to arouse during my examination, however, I was able to assist the patient to sit forward and take a few deep breaths to which his oxygen staturation increased to 96-97%. Labs from this morning include a white count of 7.1, hemoglobin 16.3, d-dimer yesterday was 0.82, ABGs show a pH of 7.35, pCO2 90, pO2 77, HCO3 49, CO2 52. Sodium today is 135, potassium 3.8, chloride 86, CO2 41, glucose 103, albumin 3.1, repeat Covid PCR is not detected. Pro- calcitonin on admission was negative at 0.09, BNP 265 the 25th. Abdomen x-ray this morning showed nonspecific abdomen, limited treatment, bibasilar infiltrates. Chest x-ray shows patchy perihilar and basilar infiltrates persistent essentially unchanged. Patient was evaluated by cardiology today who is recommending to hold diuretics for now as patient possibly has contraction alkalosis due to aggressive diuresis. Potassium will be replaced today, lasix held. 10/23/2021 Patient evaluated today in bed in the ICU. He is awake and alert this morning. He is on BiPAP 100%, he did have another episode of nausea vomiting per nurse at the bedside. Vitals today afebrile, heart rate 74, blood pressure 111/65, 93% oxygen saturation. Labs reviewed today show a WBC of 5.5, platelet count 141, sodium 134, potassium 4.3, chloride 86, CO2 41, creatinine 0.57, glucose 148, albumin 3.1. Repeat chest xray today shows patchy perihilar and basilar infiltrates compatible with COVID 19 pneumonia. Although his COVID PCR has been negative x2 this admission. Continues on IV pepcid, IV solu-medrol, IV zosyn, lovenox, and bronchodilators. He is being followed closely by pulmonary/gymnastics instructor. 10/25/2021 Patient is currently in the MICU. On BiPAP with 100% FiO2. Chest x-ray showed bibasilar airspace disease and atelectasis. Laboratory data showed WBC 5.9 hemoglobin 16.0 and platelets 162 Sodium 134 potassium 4.1 chloride 89 BUN 21 creatinine 0.61 Patient is being continued on antibiotics with follow-up with Zosyn. On IV Lasix drip. Pulmonary is on board. Continued on duo nebs. 10/26/2021 Patient is currently in MICU. Admitted to hospital due to CHF and possible aspiration pneumonia. Chest x-ray today showed persistent bilateral pulmonary infiltrates. Patient is currently off BiPAP and using Airvo at 60 L and FiO2 90% and 100% nonrebreather. Patient is maintained antibiotics now Zosyn. on lasix drip Patient is being continued on. Laboratory showed WBC 5.6 hemoglobin 17.9 and platelets 185 Sodium 138 potassium 4.2 chloride 93 bicarb is 38 BUN 2020 creatinine 0.63 10/27/2021 Patient is in the MICU. Awake and alert. Off BiPAP and currently onAirvo and saturating more than 90%. Patient is being continued on Lasix drip and is also on Zaroxolyn. Currently on TPN for nutritional support. Patient is being followed on antibiotics in the form of Zosyn. Laboratory data showed WBC 7.5 hemoglobin 18.0 and platelets 177 BUN 33 and creatinine 0.67 sodium 132 and potassium 4.1 chloride 82. Patient is being transferred to medical floor today. 10/28/2021 Patient is in the medical floor. Sitting in the chair comfortably. On Airvo high flow oxygen at 6 L and 75% FiO2. Patient did not require BiPAP last night. Patient is on Lasix drip changed to IV Lasix. Also on Zaroxolyn. Patient does have negative balance. Laboratory data showed sodium 132 potassium 3.1 chloride 73 bicarb is 49 BUN 15 creatinine 0.94 and magnesium 1.7 10/29/2021 Patient is currently sitting in the chair. Awake alert and appears to be in no distress. Currently on high flow at 6 L with FiO2 85%. Saturating around 90%. Patient has been afebrile. Currently maintained on antibiotics with normal Zosyn. Continue IV Lasix. Laboratory showed WBC 8.1 hemoglobin 18.6 and platelets 135 sodium 135 potassium 3.3 chloride 81 bicarb is 38.5 BUN 35.4 and creatinine 0.9 magnesium 2.6 and total bilirubin level is 1.6. Pulmonary is on board. Review of systems is difficult to obtain due to patient's clinical status and oxygen support, . Current medications reviewed. Objective - Vital Signs Vital signs: Vital Signs Temp 98.5 F 10/29/21 12:55 Pulse 63 10/29/21 12:55 Resp 17 10/29/21 12:55 BP 121/72 10/29/21 12:55 Pulse Ox 91 L 10/29/21 12:55 Intake & Output 10/28/21 10/29/21 10/29/21 18:59 06:59 18:59 Intake Total 1620 800 Output Total 1100 2700 1000 Balance 520 -1900 -1000 Weight 115 kg Intake: Intake, IV Titration 400 Amount Piperacillin-Tazobactam 3 400 .375 gm In Sodium Chloride 0.9% 100 ml @ 25 mls/hr IVPB Q8HR [facility] Rx# :[id number] Oral 1620 400 Output: Urine 1100 2700 1000 Coude 1100 Other: Voiding Method Indwelling Catheter Indwelling Catheter Indwelling Catheter - Exam PHYSICAL EXAMINATION: GENERAL: The patient is alert and oriented x1 is his baseline, appears in mild respiratory distress at the time of my examination. Well developed, well nourished. on BiPAP. HEENT: Pupils are round and equally reacting to light. EOMI. No scleral icterus. No conjunctival pallor. Normocephalic, atraumatic. No pharyngeal erythema. No thyromegaly. CARDIOVASCULAR: S1 and S2 present. No murmurs, rubs, or gallops. PULMONARY: Breath sounds crackles in the bases ABDOMEN: Soft, nontender, nondistended, normoactive bowel sounds. No palpable organomegaly. Obese abdomen MUSCULOSKELETAL: No joint swelling or deformity. EXTREMITIES: No cyanosis, clubbing, Bilateral lower extremity swelling improved NEUROLOGICAL: Gross neurological examination did not reveal any focal deficits. Pt is lethargic, difficult to obtain a focused neuro exam. SKIN: No rashes. - Labs CBC & Chem 7: 10/29/21 06:43 10/29/21 23:03 Labs: Abnormal Lab Results - Last 24 Hours (Table) 10/28/21 10/29/21 10/29/21 Range/Units 21:33 06:43 06:43 RBC 6.56 H (4.30-5.90) m/uL Hgb 18.6 H (13.0-17.5) gm/dL Hct 61.3 H* (39.0-53.0) % MCHC 30.2 L (31.0-37.0) g/dL RDW 18.4 H (11.5-15.5) % Potassium 2.8 L 3.3 L (3.5-5.1) mmol/L Chloride 81 L (96-109) mmol/L Carbon Dioxide 38.5 H (20.0-27.5) mmol/L BUN 35.4 H (9.0-27.0) mg/dL BUN/Creatinine Ratio 39.33 H (12.00-20.00) Ratio Glucose 123 H (70-110) mg/dL Magnesium (1.6-2.3) mg/dL Total Bilirubin 1.60 H (0.30-1.20) mg/dL AST 41 H (14-35) U/L Albumin 3.5 L (3.8-4.9) g/dL Albumin/Globulin Ratio 1.09 L (1.60-3.17) g/dL 10/29/21 Range/Units 06:43 RBC (4.30-5.90) m/uL Hgb (13.0-17.5) gm/dL Hct (39.0-53.0) % MCHC (31.0-37.0) g/dL RDW (11.5-15.5) % Potassium (3.5-5.1) mmol/L Chloride (96-109) mmol/L Carbon Dioxide (20.0-27.5) mmol/L BUN (9.0-27.0) mg/dL BUN/Creatinine Ratio (12.00-20.00) Ratio Glucose (70-110) mg/dL Magnesium 2.6 H (1.6-2.3) mg/dL Total Bilirubin (0.30-1.20) mg/dL AST (14-35) U/L Albumin (3.8-4.9) g/dL Albumin/Globulin Ratio (1.60-3.17) g/dL Assessment and Plan Assessment: Assessment and plan -Acute hypoxic and hypercapnic respiratory failure secondary to aspiration pneumonia, and obesity hypoventilation syndrome, and acute diastolic congestive heart failure. -New-onset the congestive heart failure is to have diastolic dysfunction had a normal ejection fraction. -Obesity hypoventilation syndrome -History of obstructive sleep apnea; does not tolerate CPAP. -Down syndrome -Gastroesophageal reflux disease -Nausea, vomiting possible due to respiratory alkalosis due to acute hypoxic respiratory failure -Possible aspiration pneumonia secondary to above DVT prophylaxis: Lovenox GI: Prophylaxis: Pepcid FULL CODE Plan Monitor oxygen saturation closely Continue on IV antibiotics Continue bronchodilators Continue all other supporitve care Repeat labs in AM
[2021-10-30] MEDS: METOCLOPRAMIDE 5 MG/ML 2 ML VIAL IVP SCH ×3 (05:43→18:05)
[2021-10-30] MEDS: IPRATROPIUM-ALBUTEROL 3 ML NEB INHALATION SCH ×4 (08:18→20:08)
--- NOTE | 2021-10-30 08:39 | XR ---
EXAMINATION TYPE: XR chest 1V portable DATE OF EXAM: 10/30/2021 COMPARISON: Chest x-ray 10/27/2021 HISTORY: Congestive heart failure, abnormal chest x-ray TECHNIQUE: Single frontal view of the chest is obtained. FINDINGS: Right-sided PICC line is present, distal tip is near the cavoatrial junction level. Cardio mediastinal silhouette is within normal limits. There is no evident pneumothorax. Patchy bibasilar de nsity persists, the hemidiaphragms are obscured, patient is rotated and there are overlying artifacts . There is a spinal curvature. IMPRESSION: Basilar atelectasis, correlate to exclude pneumonia, edema, follow-up recommended
[2021-10-30] MEDS: FUROSEMIDE 10 MG/ML 4 ML VIAL IV SCH ×2 (09:54→21:58)
[2021-10-30] MEDS: ATORVASTATIN 40 MG TAB PO SCH (09:54)
[2021-10-30] MEDS: FAMOTIDINE 20 MG/2 ML VIAL IV SCH ×2 (09:55→21:58)
[2021-10-30] MEDS: ENOXAPARIN 60 MG/0.6 ML SYRINGE SQ SCH (09:55)
[2021-10-30] MEDS: PIPERACILLIN-TAZOBACTAM 3.375 GM in SODIUM CHLORIDE 0.9% 100 ML IVPB SCH ×2 (09:56→16:03)
[2021-10-30 11:51] LABS: African American GFR (CKD) >90 (>60 ml/min/1.73 sqM); Blood Urea Nitrogen 37 mg/dL (9-20); Calcium 8.9 mg/dL (8.4-10.2); Chloride 81 mmol/L (98-107); Glucose 203 mg/dL (74-99); Magnesium 2.2 mg/dL (1.6-2.3); Non-African American GFR(CKD) >90 (>60 ml/min/1.73 sqM); Phosphorus 2.8 mg/dL (2.5-4.5); Potassium 2.9 mmol/L (3.5-5.1); Sodium 132 mmol/L (137-145)
[2021-10-30 12:01] LABS: Anion Gap 16 mmol/L; Carbon Dioxide 35 mmol/L (22-30)
[2021-10-30] MEDS: POTASSIUM CHLORIDE 20 MEQ in WATER FOR INJECTION 1 100ML.BAG IVPB SCH ×3 (16:03→21:58)
--- NOTE | 2021-10-30 17:36 | P.PN ---
Subjective Progress Note Date: 10/30/21 Principal diagnosis: Respiratory failure. The patient is seen today 10/29/2021 in follow-up on the regular medical floor. He is awake and alert in no acute distress. Sitting up in a chair at the bedside. He remains on AirVo high flow oxygen at 60 L and 85% FiO2. He is maintaining O2 saturations in the low 90s. White count 8.1. Hemoglobin 18.6. Sodium 135. Potassium 2.3. Bicarb 38. Glucose 123. Creatinine 0.9. AST 41. ALT 41. He remains on Lovenox, bronchodilators. IV diuretics. Remains in a - 0.9 L balance. Antibiotics in the form of Zosyn. He has not utilized the BiPAP. Progress note dated 10/30/2021. The patient appears relatively stable. He is again seen in room 5:15. Not a particularly good historian. The patient's on AIRVO at 60 L/m with an FiO2 of 65%. Saturations are 97%. His chest x-ray shows some bibasilar infiltrates. He is getting saline at 20 mL an hour. Sodium is 132, potassium 2.9, chlorides 81, CO2 35, anion gap 16, BUN 37, and creatinine 0.98. Microbiologic studies are negative. Chest x-ray shows some basilar atelectasis, and/or pneumonia. Coronavirus testing was negative. Objective - Vital Signs Vital signs: Vital Signs Temp 97.9 F 10/30/21 11:11 Pulse 62 10/30/21 15:55 Resp 18 10/30/21 11:11 BP 119/74 10/30/21 11:11 Pulse Ox 96 10/30/21 15:50 Intake & Output 10/29/21 10/30/21 10/30/21 18:59 06:59 18:59 Intake Total 1240 Output Total 1000 2700 1000 Balance -1000 -1460 -1000 Weight 113.1 kg 113.1 kg Intake: IV 100 Piperacillin-Tazobactam 3 100 .375 gm In Sodium Chloride 0.9% 100 ml @ 25 mls/hr IVPB Q8HR [facility] Rx# :[id number] Intake, IV Titration 240 Amount Sodium Chloride 0.9% 500 240 ml 500 ml @ 20 mls/hr IV .Q24H [facility] Rx#:[id number] Oral 900 Output: Urine 1000 2700 1000 Other: Voiding Method Indwelling Catheter Indwelling Catheter Indwelling Catheter - Exam No acute distress, oriented 3. Sitting at the bedside, with AIRVO cannula noted. HEENT examination is grossly unremarkable. Mucous membranes are dry. Neck supple. Full range of motion. No adenopathy thyromegaly or neck vein distention. Cardiovascular examination reveals regular rhythm rate. S1-S2 normal. No S3 or S4. No discernible murmur noted. Heart sounds are distant. Heart rate 62 bpm. Lungs reveal scattered bilateral rhonchi. No wheezes. Scattered basilar crackles. Breath sounds equal bilaterally. Saturations are 96%. Abdomen soft bowel sounds are heard. No masses or tenderness. Extremities are intact. No cyanosis clubbing or edema. Skin is without rash or lesion. Neurologic examination is brief but nonfocal. - Labs CBC & Chem 7: 10/29/21 06:43 10/30/21 10:17 Labs: Abnormal Lab Results - Last 24 Hours (Table) 10/30/21 Range/Units 10:17 Sodium 132 L (137-145) mmol/L Potassium 2.9 L (3.5-5.1) mmol/L Chloride 81 L (98-107) mmol/L Carbon Dioxide 35 H (22-30) mmol/L BUN 37 H (9-20) mg/dL Glucose 203 H (74-99) mg/dL Assessment and Plan Assessment: Acute hypoxemic respiratory failure secondary to aspiration pneumonia, diastolic CHF, and obesity/hypoventilation syndrome. History of Down syndrome. History of hyperlipidemia. History of gastroesophageal reflux disease. History of obstructive sleep apnea, intolerant of CPAP. Pickwickian syndrome. Plan: Plan dated 10/30/2021. Labs, x-rays, and medications are all reviewed. The patient continues on AIRVO. Currently, at 60 L/m with an FiO2 of 65%. Saturations are $0.97, and the FiO2 can be titrated down. The patient remains on Zosyn. Microbiologic studies are thus far negative. We will continue to follow make recommendations where appropriate. Prognosis is guarded. We do recommend deep breathing, coughing, and clearing of secretions. We also recommend hourly use of the incentive spirometer. Prognosis is guarded. Time with Patient: Less than 30
[2021-10-30] MEDS: SODIUM CHLORIDE 0.9% 500 ML 500 ML IV SCH (21:59)
[2021-10-31] MEDS: METOCLOPRAMIDE 5 MG/ML 2 ML VIAL IVP SCH ×4 (00:48→17:27)
[2021-10-31] MEDS: POTASSIUM CHLORIDE ER 20 MEQ TAB.ER PO SCH ×3 (00:48→21:39)
[2021-10-31] MEDS: PIPERACILLIN-TAZOBACTAM 3.375 GM in SODIUM CHLORIDE 0.9% 100 ML IVPB SCH ×3 (01:35→16:57)
[2021-10-31 07:02] LABS: Anisocytosis Slight; Basophils % (A) 0 %; Eosinophils # (A) 0.2 k/uL (0-0.7); Eosinophils % (A) 2 %; HGB 18.1 gm/dL (13.0-17.5); Hypochromasia Marked; Lymphocytes # (A) 1.3 k/uL (1.0-4.8); Lymphocytes % (A) 16 %; MCH 28.5 pg (25.0-35.0); MCHC 30.2 g/dL (31.0-37.0); MCV 94.2 fL (80.0-100.0); Macrocytosis Slight; Mean Platelet Volume 12.3; Monocytes # (A) 0.8 k/uL (0-1.0); Monocytes % (A) 9 %; Neutrophils # (A) 5.8 k/uL (1.3-7.7); Neutrophils % (A) 70 %; Platelet Count 151 k/uL (150-450); Poikilocytosis Slight; RBC 6.37 m/uL (4.30-5.90); RDW 18.9 % (11.5-15.5); WBC 8.3 k/uL (3.8-10.6)
[2021-10-31] MEDS: IPRATROPIUM-ALBUTEROL 3 ML NEB INHALATION SCH ×4 (07:16→19:37)
[2021-10-31] MEDS: FUROSEMIDE 10 MG/ML 4 ML VIAL IV SCH ×2 (08:11→21:38)
[2021-10-31] MEDS: FAMOTIDINE 20 MG/2 ML VIAL IV SCH ×2 (08:12→21:39)
[2021-10-31] MEDS: ATORVASTATIN 40 MG TAB PO SCH (08:12)
[2021-10-31] MEDS: ENOXAPARIN 60 MG/0.6 ML SYRINGE SQ SCH (08:12)
[2021-10-31 08:48] LABS: Anisocytosis (M) Present; Large Platelets Present; Poikilocytosis (M) Present
[2021-10-31 09:37] LABS: African American GFR (CKD) 116.4 (60.0-200.0); Anion Gap 16.1 mmol/L (10.00-18.00); BUN/Creat Ratio 29.44 Ratio (12.00-20.00); Blood Urea Nitrogen 26.7 mg/dL (9.0-27.0); Calcium 8.7 mg/dL (8.7-10.3); Carbon Dioxide 33.6 mmol/L (20.0-27.5); Non-African American GFR(CKD) 100.4 (60.0-200.0); Potassium 3.1 mmol/L (3.5-5.5)
--- NOTE | 2021-10-31 14:02 | P.PN ---
Subjective Progress Note Date: 10/31/21 Principal diagnosis: Respiratory failure. The patient is seen today 10/29/2021 in follow-up on the regular medical floor. He is awake and alert in no acute distress. Sitting up in a chair at the bedside. He remains on AirVo high flow oxygen at 60 L and 85% FiO2. He is maintaining O2 saturations in the low 90s. White count 8.1. Hemoglobin 18.6. Sodium 135. Potassium 2.3. Bicarb 38. Glucose 123. Creatinine 0.9. AST 41. ALT 41. He remains on Lovenox, bronchodilators. IV diuretics. Remains in a - 0.9 L balance. Antibiotics in the form of Zosyn. He has not utilized the BiPAP. Progress note dated 10/30/2021. The patient appears relatively stable. He is again seen in room 5:15. Not a particularly good historian. The patient's on AIRVO at 60 L/m with an FiO2 of 65%. Saturations are 97%. His chest x-ray shows some bibasilar infiltrates. He is getting saline at 20 mL an hour. Sodium is 132, potassium 2.9, chlorides 81, CO2 35, anion gap 16, BUN 37, and creatinine 0.98. Microbiologic studies are negative. Chest x-ray shows some basilar atelectasis, and/or pneumonia. Coronavirus testing was negative. Progress note dated 10/31/2021. The patient is again seen in room 5:15. He remains on AIRVO, at 50 L/m with an FiO2 of 60%. That is improved from yesterday. The patient's getting saline at 20 mL an hour. He appears no acute distress. Coronavirus testing was negative. He does have a very harsh cough. This sounds mostly dry. White count 8.3, hemoglobin 18.1, hematocrit 60, and a platelet count of 151,000. Sodium 133, potassium 3.1, chloride 83, CO2 34, anion gap 16, BUN 27, and creatinine 0.9. The chest x-ray from October 30 show some basilar atelectasis. Objective - Vital Signs Vital signs: Vital Signs Temp 98.4 F 10/31/21 12:31 Pulse 70 10/31/21 12:31 Resp 17 10/31/21 12:31 BP 101/64 10/31/21 12:31 Pulse Ox 90 L 10/31/21 12:31 Intake & Output 10/30/21 10/31/21 10/31/21 18:59 06:59 18:59 Intake Total 540 Output Total 1000 1101 1 Balance -1000 -561 -1 Weight 113.1 kg 114.8 kg Intake: Oral 540 Output: Urine 1000 1100 Stool 1 1 Other: Voiding Method Indwelling Catheter Indwelling Catheter Indwelling Catheter - Exam No acute distress, oriented 3. Sitting at the bedside, with AIRVO cannula noted. Saturations are between 90 and 92%. HEENT examination is grossly unremarkable. Mucous membranes are dry. Neck supple. Full range of motion. No adenopathy thyromegaly or neck vein distention. Cardiovascular examination reveals regular rhythm rate. S1-S2 normal. No S3 or S4. No discernible murmur noted. Heart sounds are distant. Heart rate 70 bpm. Lungs reveal scattered bilateral rhonchi. No wheezes. Scattered basilar crackles. Breath sounds equal bilaterally. Saturations are between 90 and 92%.. Abdomen soft bowel sounds are heard. No masses or tenderness. Extremities are intact. No cyanosis clubbing or edema. Skin is without rash or lesion. Neurologic examination is brief but nonfocal. - Labs CBC & Chem 7: 10/31/21 05:36 10/31/21 05:36 Labs: Abnormal Lab Results - Last 24 Hours (Table) 10/31/21 10/31/21 Range/Units 05:36 05:36 RBC 6.37 H (4.30-5.90) m/uL Hgb 18.1 H (13.0-17.5) gm/dL Hct 60.0 H* (39.0-53.0) % MCHC 30.2 L (31.0-37.0) g/dL RDW 18.9 H (11.5-15.5) % Sodium 133 L (135-145) mmol/L Potassium 3.1 L (3.5-5.5) mmol/L Chloride 83 L (96-109) mmol/L Carbon Dioxide 33.6 H (20.0-27.5) mmol/L BUN/Creatinine Ratio 29.44 H (12.00-20.00) Ratio Glucose 147 H (70-110) mg/dL Assessment and Plan Assessment: Acute hypoxemic respiratory failure secondary to aspiration pneumonia, diastolic CHF, and obesity/hypoventilation syndrome. History of Down syndrome. History of hyperlipidemia. History of gastroesophageal reflux disease. History of obstructive sleep apnea, intolerant of CPAP. Pickwickian syndrome. Plan: Plan dated 10/30/2021. Labs, x-rays, and medications are all reviewed. The patient continues on AIRVO. Currently, at 60 L/m with an FiO2 of 65%. Saturations are $0.97, and the FiO2 can be titrated down. The patient remains on Zosyn. Microbiologic studies are thus far negative. We will continue to follow make recommendations where appro priate. Prognosis is guarded. We do recommend deep breathing, coughing, and clearing of secretions. We also recommend hourly use of the incentive spirometer. Prognosis is guarded. Plan dated 10/31/2021. The patient is doing about the same in my opinion. He is currently on AIRVO at 50 L/m with an FiO2 of 60%. He is getting saline at 20 mL an hour. The patient has a very dry harsh cough. The patient is not wheezing. We will continue to follow make recommendations where appropriate. The patient remains on Zosyn. Microbiologic studies are negative are pending. We do recommend deep breathing, coughing, clearing of secretions, and hourly use of incentive spirometer. Time with Patient: Less than 30
[2021-10-31] MEDS: SODIUM CHLORIDE 0.9% 500 ML 500 ML IV SCH (14:05)
[2021-11-01] MEDS: PIPERACILLIN-TAZOBACTAM 3.375 GM in SODIUM CHLORIDE 0.9% 100 ML IVPB SCH ×2 (01:38→10:16)
[2021-11-01] MEDS: METOCLOPRAMIDE 5 MG/ML 2 ML VIAL IVP SCH ×5 (01:38→23:38)
[2021-11-01] MEDS: IPRATROPIUM-ALBUTEROL 3 ML NEB INHALATION SCH ×4 (07:15→19:24)
[2021-11-01] MEDS: FUROSEMIDE 10 MG/ML 4 ML VIAL IV SCH ×2 (09:16→21:03)
[2021-11-01] MEDS: FAMOTIDINE 20 MG/2 ML VIAL IV SCH ×2 (09:16→21:07)
[2021-11-01] MEDS: ENOXAPARIN 60 MG/0.6 ML SYRINGE SQ SCH (09:16)
[2021-11-01] MEDS: POTASSIUM CHLORIDE ER 20 MEQ TAB.ER PO SCH ×3 (09:17→21:02)
[2021-11-01] MEDS: ATORVASTATIN 40 MG TAB PO SCH (09:17)
[2021-11-01] MEDS ORDERED: POTASSIUM CHLORIDE 20 MEQ in WATER FOR INJECTION 1 100ML.BAG IVPB STA (11:34)
--- NOTE | 2021-11-01 15:42 | P.PN ---
Subjective Progress Note Date: 11/01/21 This is a pleasant 45-year-old gentleman with a known history of Down syndrome, hyperlipidemia, obstructive sleep apnea but intolerant to CPAP, gastroesophageal reflux disease. He has a poor historian. He was brought into the emergency room yesterday after his family found him to be short of breath with cough and swelling of the lower extremities. He is quite hypoxic on arrival by EMS and was placed on nonrebreather mass. His x-ray reveals evidence of cardiomegaly with diffuse interstitial edema and basilar infiltrates. EKG reveals normal sinus rhythm without acute ST or T wave abnormalities. White count 6.9. Hemoglobin 17.1. Sodium 134. Creatinine 0.65. Lactic acid 1.5. AST 93. ALT 70. ProBNP 2470. Troponin 0.025. Chavira virus by PCR not detected. He was initiated on IV diuretics, antibiotics, bronchodilators and steroids. He is seen today in consultation in the emergency department. He is currently sitting up in a stretcher. Awake and alert in no acute distress. He is requiring 15 L high flow nasal cannula to maintain O2 saturation in the 90s. He's been afebrile. Hemodynamically stable. So far he is diuresed 1300 ML's. Weight 127 kg. On 10/19/2021 patient seen in follow-up on medical surgical floor, this morning his breathing was significantly labored, rapid response team was called, and patient was placed on BiPAP support with pressures of 12 and 5 and FiO2 100%. He continues on IV diuretics, he is currently on Lasix 40 mg every 12 hours, he is diuresing quite extensively, and he is currently in negative 5.3 L net fluid balance over the last 24 hours, lung sounds reveal diffuse crackles and diminished breath sounds, with slightly better aeration at the left lung. Bose catheter is in, and draining large amount of clear yellow urine, patient is aw jemal and alert, he is tolerating BiPAP support quite well, his been afebrile, no complaints of chest pain, his chest x-ray today shows stable bilateral infiltrates and pleural effusion. His pro calcitonin level was negative his antibiotics were discontinued, steroids have been discontinued, patient has been started on nebulized treatments. BMP results have been reviewed showing sodium of 143, potassium is 4.3, chloride is 94, CO2 is 39, BUN of 14, creatinine 0.7. On 10/20/2021 patient seen in follow-up on medical surgical floor. His breathing has significantly improved with diuresis, he is currently off BiPAP support, and on 15 L per high flow nasal cannula, his pulse ox is 94%, breathing very comfortably, lung sounds are diminished, without rales or wheezes, however patient is a shallow breather, he needs encouragement to take deep breaths and cough. No coughing noted, his been afebrile, we added Zosyn for his history of aspiration related to his fast eating habits. However his pro calcitonin level has been negative, but in view of his hypoxia we will cover him with Zosyn empir ically. He is in -3470 mL net fluid balance over the last 24 hours, lower extremity edema is improving, he remains on IV Lasix at 40 mg every 12 hours, he is on DuoNeb nebulized treatments, he is on Pepcid. We'll add Lovenox for DVT prophylaxis, today's labs have been reviewed showing white blood cell count of 9.2, hemoglobin of 16.2, sodium is 140, potassium is 4.1, chloride is 89, CO2 is 38, BUN of 13, creatinine 0.8. No nausea or vomiting, no diarrhea. He is feeling hungry, he would like to eat Reevaluated today on 10/21/21, patient is back on BiPAP today. And he is on the percent FiO2 feeling better breathing easier, but had a bit of a setback and requiring more FiO2 to maintain adequate oxygenation. Patient remains on diuretics, remains on antibiotics empirically, furosemide is at 40 mg IV push every 12 hours. Patient is marginal at best. He is not a great historian but he does not seem to be in distress on BiPAP. Labs today showed BNP level of 265, his blood sugar was 180. WBC count is 9.4. On 10/22/2021 patient seen in follow-up on medical surgical floor. He is cu rrently on BiPAP of 12 and 500% FiO2, his pulse ox is 95-97%, and his FiO2 will be cut back to 80%, patient has been coming off the BiPAP on 15 L high flow to it however she quickly desaturates, and has to return to BiPAP, otherwise he is breathing comfortably, his lung sounds are diminished, I did not appreciate any crackles or wheezing. He remains on IV Lasix 40 mg every 12 hours, And he is in negative 4.6 L net fluid balance over the last 24 hours, lower extremity edema is improving, yesterday chest x-ray showing interval decrease in bilateral airspace and interstitial opacities. On 10/23/2021 patient seen in follow-up on medical surgical floor. Earlier today he was on BiPAP support, with pressures of 12 and 5 and FiO2 of 100%, however he started vomiting, BiPAP was removed, patient was placed on Airvo, he was given a dose of Reglan, rapid response team was called, abdominal x-ray was obtained, showing nonspecific abdomen. he denies any abdominal pain, abdomen is soft, he did have a bowel movement yesterday. Chest x-ray showed patchy perihilar and basilar infiltrates, without significant change. Patient has been extensively diuresed, he is in -2.6 L net fluid balance over the last 24 hours. Resolved volume contraction alkalosis, his CO2 is up to 41, sodium was 135, pot assium 3.8, chloride is 86, B1 is 14 creatinine 0.6. Blood gas showed pO2 of 77, pCO2 of 90, pH is 7.35, consistent with chronic hypercapnic respiratory failure. D-dimer was not significantly elevated only 0.82, low stemming Doppler showed no evidence of DVT. No cough, no chest pain, no hemoptysis. The patient is suspected to be aspirating, and she has been on Zosyn for last 48 hours, today's labs show normal white count of 7.1, hemoglobin 16.3 proBNP level was about 265, and this was a significantly improved value from admission which was 2470 Reevaluated today on 10/24/21, patient is now in the ICU, placed back on BiPAP 16/800%, patient was noted to be placed on non-rebreather mask and airvo last night, and the patient is noted to be a bit lethargic but arousable. I recommended immediate placement on BiPAP, and this was done. His CT angiogram of the chest done yesterday and no evidence of pulmonary embolism as expected however it did show bilateral infiltrates, and I'm still suspicious that the patient is developing aspiration pneumonia as he did in the past. Patient does have a chronic history of aspiration pneumonia. WBC count today is 5.5 hemoglobin is 15.8. Normal basic metabolic profile is normal renal profile is normal bicarb is 41. Patient remains on updrafts, is also on Lovenox extremely milligrams twice a day and I will cut it down to 40 mg subcu daily remains on methylprednisolone, and he is also on Zosyn. Reevaluated today on 10/25/21, remains in the ICU, sitting at a bedside chair, remains on BiPAP, he is on 100% FiO2, IPAP of 16 and EPAP of 8, patient seems to be comfortable and he is not in distress. I recommended tapering down his FiO2 however the patient is to stay on BiPAP, and is to stay in the ICU for today. Chest x-ray continues show by basilar airspace disease and atelectasis. CBC is relatively normal, basic metabolic profile is normal bicarb is 39. ABG prior to transferring the patient to the ICU on BiPAP showed a pO2 of 54 pCO2 95 pH of 7.33 and this was 2 days ago. 10/26/2021, the patient is being seen in follow-up in intensive care unit. 45-year-old male patient with known history of Down syndrome, currently on a BiPAP for respiratory support due to palpitations of CHF and possible aspiration. Repeat chest x-ray was done today and it shows again persistent bilateral pulmonary infiltrates in the lower lung colon. Mediastinum is less wide compared to yesterday. There may be some improvement in the volume status. There is no significant cardiomegaly on today's chest x-ray. Meanwhile, the patient's is currently off the BiPAP. He is using Airvo at 60 L with an FiO2 of 90% in addition to 100% nonrebreather facemask and his current pulse ox is in the order of 85%. His current cardiac rhythm is sinus. His fluid balance over the past 24 hours has been +185 mL. The patient however is producing urine outp ut and the urine output is in order of 25-30 mL an hour.. He is currently on IV Zosyn covering him for aspiration pneumonia. He is nothing by mouth for now and the patient is receiving PPN for nutritional support. On today's blood work, his white cell count of 5.6 with a hemoglobin of 17.9, platelets of 185, BUN of 22 with a creatinine of 0.6 and the sodium level is at 138. Meanwhile, his echo cardiogram that was done on 10/18/2021 showed a preserved LV function with an ejection fraction of 50-55%, no significant valvular abnormalities have been noted. The patient pro-calcitonin level and time of admission was 0.09. The patient's proBNP level at the time of admission was 2470 and it dropped down to 265. 10/27/2021, the patient is doing well. As the patient is awake and alert. The patient is off BiPAP and the patient is currently on Airvo 60 L of 5-70%. The patient is also utilizing on and off 100% nonrebreather facemask. The patient was started on a Lasix drip yesterday 5 mg an hour. The patient is also on Zaroxolyn 2.5 mg twice a day. Overall fluid balance is -4.2 L over the past 24 hours. Meanwhile, the patient feels less short of breath. Chest x-ray still showing pulmonary edema and bilateral pleural effusions. There may be some limited improvement in the volume status bilaterally. Clinically the patient is more stable and his breathing is not labored this point in time. In terms of his blood work, the patient's sodium level today is at 132 with a potassium level of 4.1 and serum bicarbonate 38. The blood gas showed a pH of 7.4 with a pCO2 of 73 and pO2 of 63 from yesterday and this was done and FiO2 of 70% while being on Airvo at 60 L. The white cell count today is at 7.5 with hemoglobin of 18 and platelet count of 177. In terms of treatment, the patient is still on Lasix drip and Zaroxolyn. The patient is also on empiric antibiotic coverage w ith IV Zosyn covering for aspiration pneumonia. In terms of his swallow, he is able to swallow. I think it's reasonable to advance his diet and discontinue TPN for now. The patient is seen today 10/28/2021 in follow-up on the regular medical floor. He is currently sitting up in a chair at the bedside. Awake and alert in no acute distress. He remains on AirVo high flow oxygen at 60 L and 75% FiO2. He did not require the BiPAP last night. Sodium 132. Potassium 3.1. Chloride 73. Bicarb 49. BUN 50. Creatinine 0.94. Glucose 146. He is currently on a Lasix drip at 5 mg per hour. He is also on Zaroxolyn. He is in -9 L balance the past 24-48 hours. Weight of 128 kg. He remains on antibiotics in the form of Zosyn. Lovenox for DVT prophylaxis. Continue bronchodilators. The patient is seen today 10/29/2021 in follow-up on the regular medical floor. He is awake and alert in no acute distress. Sitting up in a chair at the bedside. He remains on AirVo high flow oxygen at 60 L and 85% FiO2. He is maintaining O2 saturations in the low 90s. White count 8.1. Hemoglobin 18.6. Sodium 135. Potassium 2.3. Bicarb 38. Glucose 123. Creatinine 0.9. AST 41. ALT 41. He remains on Lovenox, bronchodilators. IV diuretics. Remains in a - 0.9 L balance. Antibiotics in the form of Zosyn. He has not utilized the BiPAP. The patient is seen today 11/01/2021 in follow-up on the regular medical floor. He is awake and alert in no acute distress. His mom is currently with him at the bedside. He is still requiring AirVo high flow oxygen at 50 liters and 70% FiO2 with O2 saturation of 90%. He is continued on DuoNeb inhalations, IV diuretics. Lovenox for DVT prophylaxis. He remains in a -2.3 L balance. Follow-up labs pending. Objective - Vital Signs Vital signs: Vital Signs Temp 97.5 F L 11/01/21 12:18 Pulse 74 11/01/21 15:35 Resp 20 11/01/21 12:18 BP 99/52 11/01/21 12:18 Pulse Ox 90 L 11/01/21 15:29 Intake & Output 10/31/21 11/01/21 11/01/21 18:59 06:59 18:59 Output Total 801 1500 1400 Balance -801 -1500 -1400 Weight 115.5 kg Output: Urine 800 1500 1400 Stool 1 Other: Voiding Method Indwelling Catheter Indwelling Catheter Indwelling Catheter - Exam GENERAL EXAM: Alert, interactive, very pleasant 45-year-old Down syndrome gentleman, on interval high flow oxygen at 50 L and 70% FiO2, comfortable in no apparent distress. HEAD: Normocephalic. EYES: Normal reaction of pupils, equal size. NOSE: Clear with pink turbinates. THROAT: No erythema or exudates. NECK: No masses, no JVD. CHEST: No chest wall deformity. LUNGS: Equal air entry with bibasilar crackles CVS: S1 and S2 normal with no audible murmur, regular rhythm. ABDOMEN: No hepatosplenomegaly, normal bowel sounds, no guarding or rigidity. SPINE: No scoliosis or deformity SKIN: No rashes CENTRAL NERVOUS SYSTEM: No focal deficits, tone is normal in all 4 extremities. EXTREMITIES: There is 1 plus peripheral edema. No clubbing, no cyanosis. Peripheral pulses are intact. - Labs CBC & Chem 7: 10/31/21 05:36 10/31/21 05:36 Assessment and Plan Assessment: 1 Acute hypoxemic respiratory failure secondary to suspected aspiration pneumonia, diastolic congestive heart failure and obesity/hypoventilation syndrome. CoVID screen negative. He is currently on AirVo high flow oxygen at 50 L and 70% FiO2. Doing well and interactive. Diuresed another 2.3 L. He remains on IV diuretics. 2 History of Down syndrome 3 History of hyperlipidemia 4 History of gastroesophageal reflux disease 5 Obstructive sleep apnea, intolerant to CPAP 6 Obesity/hypoventilation syndrome Plan: The patient was seen and evaluated Sitting up in the chair, stable Titrate down the FiO2 as tolerated Aspiration precautions Follow-up chest x-ray and labs in the a.m. We will continue to follow I, the cosigning physician, performed a history & physical examination of the patient. Lungs sounds with bibasilar crackles. Maintaining O2 saturations in the 90s on 50 L and 70% FiO2 via the AirVo high flow oxygen. I discussed the assessment and plan of care with my nurse practitioner, Roxana. I attest to the above note as dictated by her.
[2021-11-01] MEDS: SODIUM CHLORIDE 0.9% 500 ML 500 ML IV SCH (18:08)
--- NOTE | 2021-11-01 22:38 | P.PN ---
Subjective Progress Note Date: 11/01/21 Patient is evaluated today as this morning sitting up in the chair, he is on Lasix and lisinopril with a heart with a nonrebreather placed on top of it. Patient is hypoxic with oxygen saturation between 80-89% on initial presentation. This morning he was an Ateam due to hypoxia as well as intractible nausea and vomiting. He was given a dose of IV reglan which made him drowsy. He is hard to arouse during my examination, however, I was able to assist the patient to sit forward and take a few deep breaths to which his oxygen staturation increased to 96-97%. Labs from this morning include a white count of 7.1, hemoglobin 16.3, d-dimer yesterday was 0.82, ABGs show a pH of 7.35, pCO2 90, pO2 77, HCO3 49, CO2 52. Sodium today is 135, potassium 3.8, chloride 86, CO2 41, glucose 103, albumin 3.1, repeat Covid PCR is not detected. Pro- calcitonin on admission was negative at 0.09, BNP 265 the 25th. Abdomen x-ray this morning showed nonspecific abdomen, limited treatment, bibasilar infiltrates. Chest x-ray shows patchy perihilar and basilar infiltrates persistent essentially unchanged. Patient was evaluated by cardiology today who is recommending to hold diuretics for now as patient possibly has contraction alkalosis due to aggressive diuresis. Potassium will be replaced today, lasix held. 10/23/2021 Patient evaluated today in bed in the ICU. He is awake and alert this morning. He is on BiPAP 100%, he did have another episode of nausea vomiting per nurse at the bedside. Vitals today afebrile, heart rate 74, blood pressure 111/65, 93% oxygen saturation. Labs reviewed today show a WBC of 5.5, platelet count 141, sodium 134, potassium 4.3, chloride 86, CO2 41, creatinine 0.57, glucose 148, albumin 3.1. Repeat chest xray today shows patchy perihilar and basilar infiltrates compatible with COVID 19 pneumonia. Although his COVID PCR has been negative x2 this admission. Continues on IV pepcid, IV solu-medrol, IV zosyn, lovenox, and bronchodilators. He is being followed closely by pulmonary/junior project manager. 10/25/2021 Patient is currently in the MICU. On BiPAP with 100% FiO2. Chest x-ray showed bibasilar airspace disease and atelectasis. Laboratory data showed WBC 5.9 hemoglobin 16.0 and platelets 162 Sodium 134 potassium 4.1 chloride 89 BUN 21 creatinine 0.61 Patient is being continued on antibiotics with follow-up with Zosyn. On IV Lasix drip. Pulmonary is on board. Continued on duo nebs. 10/26/2021 Patient is currently in MICU. Admitted to hospital due to CHF and possible aspiration pneumonia. Chest x-ray today showed persistent bilateral pulmonary infiltrates. Patient is currently off BiPAP and using Airvo at 60 L and FiO2 90% and 100% nonrebreather. Patient is maintained antibiotics now Zosyn. on lasix drip Patient is being continued on. Laboratory showed WBC 5.6 hemoglobin 17.9 and platelets 185 Sodium 138 potassium 4.2 chloride 93 bicarb is 38 BUN 2020 creatinine 0.63 10/27/2021 Patient is in the MICU. Awake and alert. Off BiPAP and currently onAirvo and saturating more than 90%. Patient is being continued on Lasix drip and is also on Zaroxolyn. Currently on TPN for nutritional support. Patient is being followed on antibiotics in the form of Zosyn. Laboratory data showed WBC 7.5 hemoglobin 18.0 and platelets 177 BUN 33 and creatinine 0.67 sodium 132 and potassium 4.1 chloride 82. Patient is being transferred to medical floor today. 10/28/2021 Patient is in the medical floor. Sitting in the chair comfortably. On Airvo high flow oxygen at 6 L and 75% FiO2. Patient did not require BiPAP last night. Patient is on Lasix drip changed to IV Lasix. Also on Zaroxolyn. Patient does have negative balance. Laboratory data showed sodium 132 potassium 3.1 chloride 73 bicarb is 49 BUN 15 creatinine 0.94 and magnesium 1.7 10/29/2021 Patient is currently sitting in the chair. Awake alert and appears to be in no distress. Currently on high flow at 6 L with FiO2 85%. Saturating around 90%. Patient has been afebrile. Currently maintained on antibiotics with normal Zosyn. Continue IV Lasix. Laboratory showed WBC 8.1 hemoglobin 18.6 and platelets 135 sodium 135 potassium 3.3 chloride 81 bicarb is 38.5 BUN 35.4 and creatinine 0.9 magnesium 2.6 and total bilirubin level is 1.6. Pulmonary is on board. 10/30/2021 Patient is currently in the MedSurg unit. Sitting in the chair comfortably. Requiring high flow oxygen with FiO2 65% and 60 L/min. Chest x-ray today showed basilar atelectasis, correlate to exclude pneumonia. Edema and follow-up recommended. Laboratory data showed sodium 132 potassium 2.9 chloride 81 bicarb 35 BUN 37 creatinine 0.98 and blood sugar 203 Pulmonary is on board. 10/31/2021 Patient is currently sitting in the chair. Awake alert but able to communicate minimally. Denied any complaints of worsening shortness of breath or chest pain. Still on high flow oxygen at 50 L and FiO2 60%. Patient is being current on IV antibiotics in the form of Zosyn. Current Lasix 40 mg IV every 12. DVT prophylaxis Lovenox. Laboratory data showed WBC 8.3 hemoglobin 18.1 and platelets 151 Sodium 133 potassium 3.1 chloride 83 bicarb is 33.6 BUN 26.7 creatinine 0.9. Blood sugar is 147 11/01/2021 Patient is in the MedSurg unit. Sitting in the chair. Awake and alert. No apparent distress. Requiring high flow oxygen at 50 L and FiO2 70%. Patient is being current on antibiotics involve Zosyn and Lasix 40 mg every 12. Continued on duo nebs. Patient has been afebrile. Tolerating oral diet. No nausea vomi ting abdominal pain or diarrhea. Review of systems is difficult to obtain due to patient's clinical status and oxygen support, . Current medications reviewed. Objective - Vital Signs Vital signs: Vital Signs Temp 98 F 11/01/21 20:19 Pulse 70 11/01/21 20:19 Resp 18 11/01/21 20:19 BP 114/72 11/01/21 20:19 Pulse Ox 92 L 11/01/21 19:26 Intake & Output 11/01/21 11/01/21 11/02/21 06:59 18:59 06:59 Output Total 1500 1800 100 Balance -1500 -1800 -100 Weight 115.5 kg Output: Urine 1500 1800 100 Other: Voiding Method Indwelling Catheter Indwelling Catheter - Exam PHYSICAL EXAMINATION: GENERAL: The patient is alert and oriented x1 is his baseline, appears in mild respiratory distress at the time of my examination. Well developed, well nou rished. on BiPAP. HEENT: Pupils are round and equally reacting to light. EOMI. No scleral icterus. No conjunctival pallor. Normocephalic, atraumatic. No pharyngeal erythema. No thyromegaly. CARDIOVASCULAR: S1 and S2 present. No murmurs, rubs, or gallops. PULMONARY: Breath sounds crackles in the bases ABDOMEN: Soft, nontender, nondistended, normoactive bowel sounds. No palpable organomegaly. Obese abdomen MUSCULOSKELETAL: No joint swelling or deformity. EXTREMITIES: No cyanosis, clubbing, Bilateral lower extremity swelling improved NEUROLOGICAL: Gross neurological examination did not reveal any focal deficits. Pt is lethargic, difficult to obtain a focused neuro exam. SKIN: No rashes. - Labs CBC & Chem 7: 10/31/21 05:36 10/31/21 05:36 Assessment and Plan Assessment: Assessment and plan -Acute hypoxic and hypercapnic respiratory failure secondary to aspiration pneumonia, and obesity hypoventilation syndrome, and acute diastolic congestive heart failure. -New-onset the congestive heart failure is to have diastolic dysfunction had a normal ejection fraction. -Obesity hypoventilation syndrome -History of obstructive sleep apnea; does not tolerate CPAP. -Down syndrome -Gastroesophageal reflux disease -Nausea, vomiting possible due to respiratory alkalosis due to acute hypoxic respiratory failure -Possible aspiration pneumonia secondary to above DVT prophylaxis: Lovenox GI: Prophylaxis: Pepcid FULL CODE Plan Monitor oxygen saturation closely Continue on IV antibiotics Continue bronchodilators Continue all other supporitve care Repeat labs in AM
--- NOTE | 2021-11-01 23:30 | P.PN ---
Subjective Progress Note Date: 10/30/21 Patient is evaluated today as this morning sitting up in the chair, he is on Lasix and lisinopril with a heart with a nonrebreather placed on top of it. Patient is hypoxic with oxygen saturation between 80-89% on initial presentation. This morning he was an Ateam due to hypoxia as well as intractible nausea and vomiting. He was given a dose of IV reglan which made him drowsy. He is hard to arouse during my examination, however, I was able to assist the patient to sit forward and take a few deep breaths to which his oxygen staturation increased to 96-97%. Labs from this morning include a white count of 7.1, hemoglobin 16.3, d-dimer yesterday was 0.82, ABGs show a pH of 7.35, pCO2 90, pO2 77, HCO3 49, CO2 52. Sodium today is 135, potassium 3.8, chloride 86, CO2 41, glucose 103, albumin 3.1, repeat Covid PCR is not detected. Pro- calcitonin on admission was negative at 0.09, BNP 265 the 25th. Abdomen x-ray this morning showed nonspecific abdomen, limited treatment, bibasilar infiltrates. Chest x-ray shows patchy perihilar and basilar infiltrates persistent essentially unchanged. Patient was evaluated by cardiology today who is recommending to hold diuretics for now as patient possibly has contraction alkalosis due to aggressive diuresis. Potassium will be replaced today, lasix held. 10/23/2021 Patient evaluated today in bed in the ICU. He is awake and alert this morning. He is on BiPAP 100%, he did have another episode of nausea vomiting per nurse at the bedside. Vitals today afebrile, heart rate 74, blood pressure 111/65, 93% oxygen saturation. Labs reviewed today show a WBC of 5.5, platelet count 141, sodium 134, potassium 4.3, chloride 86, CO2 41, creatinine 0.57, glucose 148, albumin 3.1. Repeat chest xray today shows patchy perihilar and basilar infiltrates compatible with COVID 19 pneumonia. Although his COVID PCR has been negative x2 this admission. Continues on IV pepcid, IV solu-medrol, IV zosyn, lovenox, and bronchodilators. He is being followed closely by pulmonary/starter mechanic. 10/25/2021 Patient is currently in the MICU. On BiPAP with 100% FiO2. Chest x-ray showed bibasilar airspace disease and atelectasis. Laboratory data showed WBC 5.9 hemoglobin 16.0 and platelets 162 Sodium 134 potassium 4.1 chloride 89 BUN 21 creatinine 0.61 Patient is being continued on antibiotics with follow-up with Zosyn. On IV Lasix drip. Pulmonary is on board. Continued on duo nebs. 10/26/2021 Patient is currently in MICU. Admitted to hospital due to CHF and possible aspiration pneumonia. Chest x-ray today showed persistent bilateral pulmonary infiltrates. Patient is currently off BiPAP and using Airvo at 60 L and FiO2 90% and 100% nonrebreather. Patient is maintained antibiotics now Zosyn. on lasix drip Patient is being continued on. Laboratory showed WBC 5.6 hemoglobin 17.9 and platelets 185 Sodium 138 potassium 4.2 chloride 93 bicarb is 38 BUN 2020 creatinine 0.63 10/27/2021 Patient is in the MICU. Awake and alert. Off BiPAP and currently onAirvo and saturating more than 90%. Patient is being continued on Lasix drip and is also on Zaroxolyn. Currently on TPN for nutritional support. Patient is being followed on antibiotics in the form of Zosyn. Laboratory data showed WBC 7.5 hemoglobin 18.0 and platelets 177 BUN 33 and creatinine 0.67 sodium 132 and potassium 4.1 chloride 82. Patient is being transferred to medical floor today. 10/28/2021 Patient is in the medical floor. Sitting in the chair comfortably. On Airvo high flow oxygen at 6 L and 75% FiO2. Patient did not require BiPAP last night. Patient is on Lasix drip changed to IV Lasix. Also on Zaroxolyn. Patient does have negative balance. Laboratory data showed sodium 132 potassium 3.1 chloride 73 bicarb is 49 BUN 15 creatinine 0.94 and magnesium 1.7 10/29/2021 Patient is currently sitting in the chair. Awake alert and appears to be in no distress. Currently on high flow at 6 L with FiO2 85%. Saturating around 90%. Patient has been afebrile. Currently maintained on antibiotics with normal Zosyn. Continue IV Lasix. Laboratory showed WBC 8.1 hemoglobin 18.6 and platelets 135 sodium 135 potassium 3.3 chloride 81 bicarb is 38.5 BUN 35.4 and creatinine 0.9 magnesium 2.6 and total bilirubin level is 1.6. Pulmonary is on board. 10/30/2021 Patient is currently in the MedSurg unit. Sitting in the chair comfortably. Requiring high flow oxygen with FiO2 65% and 60 L/min. Chest x-ray today showed basilar atelectasis, correlate to exclude pneumonia. Edema and follow-up recommended. Laboratory data showed sodium 132 potassium 2.9 chloride 81 bicarb 35 BUN 37 creatinine 0.98 and blood sugar 203 Pulmonary is on board. Review of systems is difficult to obtain due to patient's clinical status and oxygen support, . Current medications reviewed. Objective - Vital Signs Vital signs: Vital Signs Temp 98.2 F 10/30/21 19:25 Pulse 63 10/30/21 20:22 Resp 18 10/30/21 19:25 BP 115/74 10/30/21 19:25 Pulse Ox 93 L 10/30/21 19:25 Intake & Output 10/30/21 10/30/21 10/31/21 06:59 18:59 06:59 Intake Total 1240 Output Total 2700 1000 Balance -1460 -1000 Weight 113.1 kg 113.1 kg Intake: IV 100 Piperacillin-Tazobactam 3 100 .375 gm In Sodium Chloride 0.9% 100 ml @ 25 mls/hr IVPB Q8HR [facility] Rx# :[id number] Intake, IV Titration 240 Amount Sodium Chloride 0.9% 500 240 ml 500 ml @ 20 mls/hr IV .Q24H [facility] Rx#:[id number] Oral 900 Output: Urine 2700 1000 Other: Voiding Method Indwelling Catheter Indwelling Catheter - Exam PHYSICAL EXAMINATION: GENERAL: The patient is alert and oriented x1 is his baseline, appears in mild respiratory distress at the time of my examination. Well developed, well nourished. on BiPAP. HEENT: Pupils are round and equally reacting to light. EOMI. No scleral icterus. No conjunctival pallor. Normocephalic, atraumatic. No pharyngeal erythema. No thyromegaly. CARDIOVASCULAR: S1 and S2 present. No murmurs, rubs, or gallops. PULMONARY: Breath sounds crackles in the bases ABDOMEN: Soft, nontender, nondistended, normoactive bowel sounds. No palpable organomegaly. Obese abdomen MUSCULOSKELETAL: No joint swelling or deformity. EXTREMITIES: No cyanosis, clubbing, Bilateral lower extremity swelling improved NEUROLOGICAL: Gross neurological examination did not reveal any focal deficits. Pt is lethargic, difficult to obtain a focused neuro exam. SKIN: No rashes. - Labs CBC & Chem 7: 10/31/21 05:36 10/31/21 05:36 Labs: Abnormal Lab Results - Last 24 Hours (Table) 10/30/21 Range/Units 10:17 Sodium 132 L (137-145) mmol/L Potassium 2.9 L (3.5-5.1) mmol/L Chloride 81 L (98-107) mmol/L Carbon Dioxide 35 H (22-30) mmol/L BUN 37 H (9-20) mg/dL Glucose 203 H (74-99) mg/dL Assessment and Plan Assessment: Assessment and plan -Acute hypoxic and hypercapnic respiratory failure secondary to aspiration pneumonia, and obesity hypoventilation syndrome, and acute diastolic congestive heart failure. -New-onset the congestive heart failure is to have diastolic dysfunction had a normal ejection fraction. -Obesity hypoventilation syndrome -History of obstructive sleep apnea; does not tolerate CPAP. -Down syndrome -Gastroesophageal reflux disease -Nausea, vomiting possible due to respiratory alkalosis due to acute hypoxic re spiratory failure -Possible aspiration pneumonia secondary to above DVT prophylaxis: Lovenox GI: Prophylaxis: Pepcid FULL CODE Plan Monitor oxygen saturation closely Continue on IV antibiotics Continue bronchodilators Continue all other supporitve care Repeat labs in AM Time with Patient: Greater than 30
--- NOTE | 2021-11-01 23:32 | P.PN ---
Subjective Progress Note Date: 10/31/21 Patient is evaluated today as this morning sitting up in the chair, he is on Lasix and lisinopril with a heart with a nonrebreather placed on top of it. Patient is hypoxic with oxygen saturation between 80-89% on initial presentation. This morning he was an Ateam due to hypoxia as well as intractible nausea and vomiting. He was given a dose of IV reglan which made him drowsy. He is hard to arouse during my examination, however, I was able to assist the patient to sit forward and take a few deep breaths to which his oxygen staturation increased to 96-97%. Labs from this morning include a white count of 7.1, hemoglobin 16.3, d-dimer yesterday was 0.82, ABGs show a pH of 7.35, pCO2 90, pO2 77, HCO3 49, CO2 52. Sodium today is 135, potassium 3.8, chloride 86, CO2 41, glucose 103, albumin 3.1, repeat Covid PCR is not detected. Pro- calcitonin on admission was negative at 0.09, BNP 265 the 25th. Abdomen x-ray this morning showed nonspecific abdomen, limited treatment, bibasilar infiltrates. Chest x-ray shows patchy perihilar and basilar infiltrates persistent essentially unchanged. Patient was evaluated by cardiology today who is recommending to hold diuretics for now as patient possibly has contraction alkalosis due to aggressive diuresis. Potassium will be replaced today, lasix held. 10/23/2021 Patient evaluated today in bed in the ICU. He is awake and alert this morning. He is on BiPAP 100%, he did have another episode of nausea vomiting per nurse at the bedside. Vitals today afebrile, heart rate 74, blood pressure 111/65, 93% oxygen saturation. Labs reviewed today show a WBC of 5.5, platelet count 141, sodium 134, potassium 4.3, chloride 86, CO2 41, creatinine 0.57, glucose 148, albumin 3.1. Repeat chest xray today shows patchy perihilar and basilar infiltrates compatible with COVID 19 pneumonia. Although his COVID PCR has been negative x2 this admission. Continues on IV pepcid, IV solu-medrol, IV zosyn, lovenox, and bronchodilators. He is being followed closely by pulmonary/pharmacy district manager. 10/25/2021 Patient is currently in the MICU. On BiPAP with 100% FiO2. Chest x-ray showed bibasilar airspace disease and atelectasis. Laboratory data showed WBC 5.9 hemoglobin 16.0 and platelets 162 Sodium 134 potassium 4.1 chloride 89 BUN 21 creatinine 0.61 Patient is being continued on antibiotics with follow-up with Zosyn. On IV Lasix drip. Pulmonary is on board. Continued on duo nebs. 10/26/2021 Patient is currently in MICU. Admitted to hospital due to CHF and possible aspiration pneumonia. Chest x-ray today showed persistent bilateral pulmonary infiltrates. Patient is currently off BiPAP and using Airvo at 60 L and FiO2 90% and 100% nonrebreather. Patient is maintained antibiotics now Zosyn. on lasix drip Patient is being continued on. Laboratory showed WBC 5.6 hemoglobin 17.9 and platelets 185 Sodium 138 potassium 4.2 chloride 93 bicarb is 38 BUN 2020 creatinine 0.63 10/27/2021 Patient is in the MICU. Awake and alert. Off BiPAP and currently onAirvo and saturating more than 90%. Patient is being continued on Lasix drip and is also on Zaroxolyn. Currently on TPN for nutritional support. Patient is being followed on antibiotics in the form of Zosyn. Laboratory data showed WBC 7.5 hemoglobin 18.0 and platelets 177 BUN 33 and creatinine 0.67 sodium 132 and potassium 4.1 chloride 82. Patient is being transferred to medical floor today. 10/28/2021 Patient is in the medical floor. Sitting in the chair comfortably. On Airvo high flow oxygen at 6 L and 75% FiO2. Patient did not require BiPAP last night. Patient is on Lasix drip changed to IV Lasix. Also on Zaroxolyn. Patient does have negative balance. Laboratory data showed sodium 132 potassium 3.1 chloride 73 bicarb is 49 BUN 15 creatinine 0.94 and magnesium 1.7 10/29/2021 Patient is currently sitting in the chair. Awake alert and appears to be in no distress. Currently on high flow at 6 L with FiO2 85%. Saturating around 90%. Patient has been afebrile. Currently maintained on antibiotics with normal Zosyn. Continue IV Lasix. Laboratory showed WBC 8.1 hemoglobin 18.6 and platelets 135 sodium 135 potassium 3.3 chloride 81 bicarb is 38.5 BUN 35.4 and creatinine 0.9 magnesium 2.6 and total bilirubin level is 1.6. Pulmonary is on board. 10/30/2021 Patient is currently in the MedSurg unit. Sitting in the chair comfortably. Requiring high flow oxygen with FiO2 65% and 60 L/min. Chest x-ray today showed basilar atelectasis, correlate to exclude pneumonia. Edema and follow-up recommended. Laboratory data showed sodium 132 potassium 2.9 chloride 81 bicarb 35 BUN 37 creatinine 0.98 and blood sugar 203 Pulmonary is on board. 10/31/2021 Patient is currently sitting in the chair. Awake alert but able to communicate minimally. Denied any complaints of worsening shortness of breath or chest pain. Still on high flow oxygen at 50 L and FiO2 60%. Patient is being current on IV antibiotics in the form of Zosyn. Current Lasix 40 mg IV every 12. DVT prophylaxis Lovenox. Laboratory data showed WBC 8.3 hemoglobin 18.1 and platelets 151 Sodium 133 potassium 3.1 chloride 83 bicarb is 33.6 BUN 26.7 creatinine 0.9. Blood sugar is 147 Review of systems is difficult to obtain due to patient's clinical status and oxygen support, . Current medications reviewed. Objective - Vital Signs Vital signs: Vital Signs Temp 98.4 F 10/31/21 12:31 Pulse 64 10/31/21 15:45 Resp 17 10/31/21 12:31 BP 101/64 10/31/21 12:31 Pulse Ox 90 L 10/31/21 12:31 Intake & Output 10/31/21 10/31/21 11/01/21 06:59 18:59 06:59 Intake Total 540 Output Total 1101 801 Balance -561 -801 Weight 114.8 kg Intake: Oral 540 Output: Urine 1100 800 Stool 1 1 Other: Voiding Method Indwelling Catheter Indwelling Catheter - Exam PHYSICAL EXAMINATION: GENERAL: The patient is alert and oriented x1 is his baseline, appears in mild respiratory distress at the time of my examination. Well developed, well nourished. on BiPAP. HEENT: Pupils are round and equally reacting to light. EOMI. No scleral icterus. No conjunctival pallor. Normocephalic, atraumatic. No pharyngeal erythema. No thyromegaly. CARDIOVASCULAR: S1 and S2 present. No murmurs, rubs, or gallops. PULMONARY: Breath sounds crackles in the bases ABDOMEN: Soft, nontender, nondistended, normoactive bowel sounds. No palpable organomegaly. Obese abdomen MUSCULOSKELETAL: No joint swelling or deformity. EXTREMITIES: No cyanosis, clubbing, Bilateral lower extremity swelling improved NEUROLOGICAL: Gross neurological examination did not reveal any focal deficits. Pt is lethargic, difficult to obtain a focused neuro exam. SKIN: No rashes. - Labs CBC & Chem 7: 10/31/21 05:36 10/31/21 05:36 Labs: Abnormal Lab Results - Last 24 Hours (Table) 10/31/21 10/31/21 Range/Units 05:36 05:36 RBC 6.37 H (4.30-5.90) m/uL Hgb 18.1 H (13.0-17.5) gm/dL Hct 60.0 H* (39.0-53.0) % MCHC 30.2 L (31.0-37.0) g/dL RDW 18.9 H (11.5-15.5) % Sodium 133 L (135-145) mmol/L Potassium 3.1 L (3.5-5.5) mmol/L Chloride 83 L (96-109) mmol/L Carbon Dioxide 33.6 H (20.0-27.5) mmol/L BUN/Creatinine Ratio 29.44 H (12.00-20.00) Ratio Glucose 147 H (70-110) mg/dL Assessment and Plan Assessment: Assessment and plan -Acute hypoxic and hypercapnic respiratory failure secondary to aspiration pneumonia, and obesity hypoventilation syndrome, and acute diastolic congestive heart failure. -New-onset the congestive heart failure is to have diastolic dysfunction had a normal ejection fraction. -Obesity hypoventilation syndrome -History of obstructive sleep apnea; does not tolerate CPAP. -Down syndrome -Gastroesophageal reflux disease -Nausea, vomiting possible due to respiratory alkalosis due to acute hypoxic respiratory failure -Possible aspiration pneumonia secondary to above DVT prophylaxis: Lovenox GI: Prophylaxis: Pepcid FULL CODE Plan Monitor oxygen saturation closely Continue on IV antibiotics Continue bronchodilators Continue all other supporitve care Repeat labs in AM
[2021-11-02 06:21] LABS: Anisocytosis Slight; Hypochromasia Marked; MCH 28.5 pg (25.0-35.0); MCHC 30.1 g/dL (31.0-37.0); MCV 94.6 fL (80.0-100.0); Macrocytosis Slight; Mean Platelet Volume 10.5; Platelet Count 175 k/uL (150-450); Poikilocytosis Slight; RBC 5.97 m/uL (4.30-5.90); RDW 18.6 % (11.5-15.5); WBC 7.2 k/uL (3.8-10.6)
[2021-11-02 06:27] LABS: HCT 56.5 % (39.0-53.0)
[2021-11-02 07:15] LABS: Eosinophils # (M) 0.43 k/uL (0-0.7); Monocytes # (M) 0.94 k/uL (0-1.0); Neutrophils # (M) 4.54 k/uL (1.3-7.7); Neutrophils % (M) 63 %; Nucleated Red Blood Cells 0 /100 WBC (0-0); Total Cells Counted 100
[2021-11-02] MEDS: METOCLOPRAMIDE 5 MG/ML 2 ML VIAL IVP SCH ×3 (07:48→17:07)
[2021-11-02] MEDS: IPRATROPIUM-ALBUTEROL 3 ML NEB INHALATION SCH ×4 (08:02→19:23)
--- NOTE | 2021-11-02 09:10 | XR ---
EXAMINATION TYPE: XR chest 1V portable DATE OF EXAM: 11/02/2021 COMPARISON: Chest x-ray 10/30/2021 HISTORY: Pneumonia TECHNIQUE: Single frontal view of the chest is obtained. FINDINGS: Right-sided PICC line is stable, distal tip near the cavoatrial junction. Cardiac mediasti nal silhouette not significantly changed. There are bilateral areas of airspace disease. No evident p neumothorax or pleural effusion. There are overlying leads. IMPRESSION: Findings consistent with patient's history of pneumonia
[2021-11-02 10:08] LABS: African American GFR (CKD) 133.1 (60.0-200.0); Albumin 3.1 g/dL (3.8-4.9); Albumin/Globulin Ratio 1.11 (1.60-3.17); Anion Gap 15.3 mmol/L (10.00-18.00); BUN/Creat Ratio 19.13 Ratio (12.00-20.00); Blood Urea Nitrogen 12.7 mg/dL (9.0-27.0); Calcium 8.7 mg/dL (8.7-10.3); Carbon Dioxide 33.2 mmol/L (20.0-27.5); Globulin 2.8 g/dL (1.6-3.3); Non-African American GFR(CKD) 114.9 (60.0-200.0); Potassium 3.2 mmol/L (3.5-5.5); Total Bilirubin 0.8 mg/dL (0.30-1.20)
[2021-11-02] MEDS: FAMOTIDINE 20 MG/2 ML VIAL IV SCH ×2 (10:08→20:39)
[2021-11-02] MEDS: FUROSEMIDE 10 MG/ML 4 ML VIAL IV SCH ×2 (10:08→20:43)
[2021-11-02] MEDS: POTASSIUM CHLORIDE ER 20 MEQ TAB.ER PO SCH ×2 (10:09→20:37)
[2021-11-02] MEDS: ENOXAPARIN 60 MG/0.6 ML SYRINGE SQ SCH (10:09)
[2021-11-02] MEDS: ATORVASTATIN 40 MG TAB PO SCH (10:09)
[2021-11-02 12:23] VITALS: BMI 43.4
--- NOTE | 2021-11-02 12:46 | P.PN ---
Subjective Progress Note Date: 11/02/21 This is a pleasant 45-year-old gentleman with a known history of Down syndrome, hyperlipidemia, obstructive sleep apnea but intolerant to CPAP, gastroesophageal reflux disease. He has a poor historian. He was brought into the emergency room yesterday after his family found him to be short of breath with cough and swelling of the lower extremities. He is quite hypoxic on arrival by EMS and was placed on nonrebreather mass. His x-ray reveals evidence of cardiomegaly with diffuse interstitial edema and basilar infiltrates. EKG reveals normal sinus rhythm without acute ST or T wave abnormalities. White count 6.9. Hemoglobin 17.1. Sodium 134. Creatinine 0.65. Lactic acid 1.5. AST 93. ALT 70. ProBNP 2470. Troponin 0.025. Chavira virus by PCR not detected. He was initiated on IV diuretics, antibiotics, bronchodilators and steroids. He is seen today in consultation in the emergency department. He is currently sitting up in a stretcher. Awake and alert in no acute distress. He is requiring 15 L high flow nasal cannula to maintain O2 saturation in the 90s. He's been afebrile. Hemodynamically stable. So far he is diuresed 1300 ML's. Weight 127 kg. On 10/19/2021 patient seen in follow-up on medical surgical floor, this morning his breathing was significantly labored, rapid response team was called, and patient was placed on BiPAP support with pressures of 12 and 5 and FiO2 100%. He continues on IV diuretics, he is currently on Lasix 40 mg every 12 hours, he is diuresing quite extensively, and he is currently in negative 5.3 L net fluid balance over the last 24 hours, lung sounds reveal diffuse crackles and diminished breath sounds, with slightly better aeration at the left lung. Bose catheter is in, and draining large amount of clear yellow urine, patient is aw jemal and alert, he is tolerating BiPAP support quite well, his been afebrile, no complaints of chest pain, his chest x-ray today shows stable bilateral infiltrates and pleural effusion. His pro calcitonin level was negative his antibiotics were discontinued, steroids have been discontinued, patient has been started on nebulized treatments. BMP results have been reviewed showing sodium of 143, potassium is 4.3, chloride is 94, CO2 is 39, BUN of 14, creatinine 0.7. On 10/20/2021 patient seen in follow-up on medical surgical floor. His breathing has significantly improved with diuresis, he is currently off BiPAP support, and on 15 L per high flow nasal cannula, his pulse ox is 94%, breathing very comfortably, lung sounds are diminished, without rales or wheezes, however patient is a shallow breather, he needs encouragement to take deep breaths and cough. No coughing noted, his been afebrile, we added Zosyn for his history of aspiration related to his fast eating habits. However his pro calcitonin level has been negative, but in view of his hypoxia we will cover him with Zosyn empir ically. He is in -3470 mL net fluid balance over the last 24 hours, lower extremity edema is improving, he remains on IV Lasix at 40 mg every 12 hours, he is on DuoNeb nebulized treatments, he is on Pepcid. We'll add Lovenox for DVT prophylaxis, today's labs have been reviewed showing white blood cell count of 9.2, hemoglobin of 16.2, sodium is 140, potassium is 4.1, chloride is 89, CO2 is 38, BUN of 13, creatinine 0.8. No nausea or vomiting, no diarrhea. He is feeling hungry, he would like to eat Reevaluated today on 10/21/21, patient is back on BiPAP today. And he is on the percent FiO2 feeling better breathing easier, but had a bit of a setback and requiring more FiO2 to maintain adequate oxygenation. Patient remains on diuretics, remains on antibiotics empirically, furosemide is at 40 mg IV push every 12 hours. Patient is marginal at best. He is not a great historian but he does not seem to be in distress on BiPAP. Labs today showed BNP level of 265, his blood sugar was 180. WBC count is 9.4. On 10/22/2021 patient seen in follow-up on medical surgical floor. He is cu rrently on BiPAP of 12 and 500% FiO2, his pulse ox is 95-97%, and his FiO2 will be cut back to 80%, patient has been coming off the BiPAP on 15 L high flow to it however she quickly desaturates, and has to return to BiPAP, otherwise he is breathing comfortably, his lung sounds are diminished, I did not appreciate any crackles or wheezing. He remains on IV Lasix 40 mg every 12 hours, And he is in negative 4.6 L net fluid balance over the last 24 hours, lower extremity edema is improving, yesterday chest x-ray showing interval decrease in bilateral airspace and interstitial opacities. On 10/23/2021 patient seen in follow-up on medical surgical floor. Earlier today he was on BiPAP support, with pressures of 12 and 5 and FiO2 of 100%, however he started vomiting, BiPAP was removed, patient was placed on Airvo, he was given a dose of Reglan, rapid response team was called, abdominal x-ray was obtained, showing nonspecific abdomen. he denies any abdominal pain, abdomen is soft, he did have a bowel movement yesterday. Chest x-ray showed patchy perihilar and basilar infiltrates, without significant change. Patient has been extensively diuresed, he is in -2.6 L net fluid balance over the last 24 hours. Resolved volume contraction alkalosis, his CO2 is up to 41, sodium was 135, pot assium 3.8, chloride is 86, B1 is 14 creatinine 0.6. Blood gas showed pO2 of 77, pCO2 of 90, pH is 7.35, consistent with chronic hypercapnic respiratory failure. D-dimer was not significantly elevated only 0.82, low stemming Doppler showed no evidence of DVT. No cough, no chest pain, no hemoptysis. The patient is suspected to be aspirating, and she has been on Zosyn for last 48 hours, today's labs show normal white count of 7.1, hemoglobin 16.3 proBNP level was about 265, and this was a significantly improved value from admission which was 2470 Reevaluated today on 10/24/21, patient is now in the ICU, placed back on BiPAP 16/800%, patient was noted to be placed on non-rebreather mask and airvo last night, and the patient is noted to be a bit lethargic but arousable. I recommended immediate placement on BiPAP, and this was done. His CT angiogram of the chest done yesterday and no evidence of pulmonary embolism as expected however it did show bilateral infiltrates, and I'm still suspicious that the patient is developing aspiration pneumonia as he did in the past. Patient does have a chronic history of aspiration pneumonia. WBC count today is 5.5 hemoglobin is 15.8. Normal basic metabolic profile is normal renal profile is normal bicarb is 41. Patient remains on updrafts, is also on Lovenox extremely milligrams twice a day and I will cut it down to 40 mg subcu daily remains on methylprednisolone, and he is also on Zosyn. Reevaluated today on 10/25/21, remains in the ICU, sitting at a bedside chair, remains on BiPAP, he is on 100% FiO2, IPAP of 16 and EPAP of 8, patient seems to be comfortable and he is not in distress. I recommended tapering down his FiO2 however the patient is to stay on BiPAP, and is to stay in the ICU for today. Chest x-ray continues show by basilar airspace disease and atelectasis. CBC is relatively normal, basic metabolic profile is normal bicarb is 39. ABG prior to transferring the patient to the ICU on BiPAP showed a pO2 of 54 pCO2 95 pH of 7.33 and this was 2 days ago. 10/26/2021, the patient is being seen in follow-up in intensive care unit. 45-year-old male patient with known history of Down syndrome, currently on a BiPAP for respiratory support due to palpitations of CHF and possible aspiration. Repeat chest x-ray was done today and it shows again persistent bilateral pulmonary infiltrates in the lower lung colon. Mediastinum is less wide compared to yesterday. There may be some improvement in the volume status. There is no significant cardiomegaly on today's chest x-ray. Meanwhile, the patient's is currently off the BiPAP. He is using Airvo at 60 L with an FiO2 of 90% in addition to 100% nonrebreather facemask and his current pulse ox is in the order of 85%. His current cardiac rhythm is sinus. His fluid balance over the past 24 hours has been +185 mL. The patient however is producing urine outp ut and the urine output is in order of 25-30 mL an hour.. He is currently on IV Zosyn covering him for aspiration pneumonia. He is nothing by mouth for now and the patient is receiving PPN for nutritional support. On today's blood work, his white cell count of 5.6 with a hemoglobin of 17.9, platelets of 185, BUN of 22 with a creatinine of 0.6 and the sodium level is at 138. Meanwhile, his echo cardiogram that was done on 10/18/2021 showed a preserved LV function with an ejection fraction of 50-55%, no significant valvular abnormalities have been noted. The patient pro-calcitonin level and time of admission was 0.09. The patient's proBNP level at the time of admission was 2470 and it dropped down to 265. 10/27/2021, the patient is doing well. As the patient is awake and alert. The patient is off BiPAP and the patient is currently on Airvo 60 L of 5-70%. The patient is also utilizing on and off 100% nonrebreather facemask. The patient was started on a Lasix drip yesterday 5 mg an hour. The patient is also on Zaroxolyn 2.5 mg twice a day. Overall fluid balance is -4.2 L over the past 24 hours. Meanwhile, the patient feels less short of breath. Chest x-ray still showing pulmonary edema and bilateral pleural effusions. There may be some limited improvement in the volume status bilaterally. Clinically the patient is more stable and his breathing is not labored this point in time. In terms of his blood work, the patient's sodium level today is at 132 with a potassium level of 4.1 and serum bicarbonate 38. The blood gas showed a pH of 7.4 with a pCO2 of 73 and pO2 of 63 from yesterday and this was done and FiO2 of 70% while being on Airvo at 60 L. The white cell count today is at 7.5 with hemoglobin of 18 and platelet count of 177. In terms of treatment, the patient is still on Lasix drip and Zaroxolyn. The patient is also on empiric antibiotic coverage w ith IV Zosyn covering for aspiration pneumonia. In terms of his swallow, he is able to swallow. I think it's reasonable to advance his diet and discontinue TPN for now. The patient is seen today 10/28/2021 in follow-up on the regular medical floor. He is currently sitting up in a chair at the bedside. Awake and alert in no acute distress. He remains on AirVo high flow oxygen at 60 L and 75% FiO2. He did not require the BiPAP last night. Sodium 132. Potassium 3.1. Chloride 73. Bicarb 49. BUN 50. Creatinine 0.94. Glucose 146. He is currently on a Lasix drip at 5 mg per hour. He is also on Zaroxolyn. He is in -9 L balance the past 24-48 hours. Weight of 128 kg. He remains on antibiotics in the form of Zosyn. Lovenox for DVT prophylaxis. Continue bronchodilators. The patient is seen today 10/29/2021 in follow-up on the regular medical floor. He is awake and alert in no acute distress. Sitting up in a chair at the bedside. He remains on AirVo high flow oxygen at 60 L and 85% FiO2. He is maintaining O2 saturations in the low 90s. White count 8.1. Hemoglobin 18.6. Sodium 135. Potassium 2.3. Bicarb 38. Glucose 123. Creatinine 0.9. AST 41. ALT 41. He remains on Lovenox, bronchodilators. IV diuretics. Remains in a - 0.9 L balance. Antibiotics in the form of Zosyn. He has not utilized the BiPAP. The patient is seen today 11/01/2021 in follow-up on the regular medical floor. He is awake and alert in no acute distress. His mom is currently with him at the bedside. He is still requiring AirVo high flow oxygen at 50 liters and 70% FiO2 with O2 saturation of 90%. He is continued on DuoNeb inhalations, IV diuretics. Lovenox for DVT prophylaxis. He remains in a -2.3 L balance. Follow-up labs pending. The patient is seen today 11/02/2021 in follow-up on the regular medical floor. He is sitting up in bed. Awake and alert. Continues to require high flow AirVo at 50 L and 70% FiO2. Once the patient's oxygen was titrated down he did drop to 86%. Chest x-ray continues to show bilateral patchy airspace disease. No pneumothorax or pleural effusion. Right-sided PICC line remains in place. White count 7.2. Hemoglobin 17.0. Sodium 139. Potassium 3.2. Creatinine 0.7. AST 25. ALT 76. He is continued on DuoNeb inhalations. Objective - Vital Signs Vital signs: Vital Signs Temp 98.6 F 11/02/21 11:32 Pulse 72 11/02/21 11:45 Resp 18 11/02/21 11:32 BP 108/63 11/02/21 11:32 Pulse Ox 92 L 11/02/21 11:32 Intake & Output 11/01/21 11/02/21 11/02/21 18:59 06:59 18:59 Output Total 1800 1500 Balance -1800 -1500 Weight 115 kg 115 kg Output: Urine 1800 1500 Coude 300 Other: Voiding Method Indwelling Catheter Indwelling Catheter Indwelling Catheter - Exam GENERAL EXAM: Alert, interactive, very pleasant 45-year-old Down syndrome gentleman, on interval high flow oxygen at 50 L and 70% FiO2, comfortable in no apparent distress. HEAD: Normocephalic. EYES: Normal reaction of pupils, equal size. NOSE: Clear with pink turbinates. THROAT: No erythema or exudates. NECK: No masses, no JVD. CHEST: No chest wall deformity. LUNGS: Equal air entry with bibasilar crackles CVS: S1 and S2 normal with no audible murmur, regular rhythm. ABDOMEN: No hepatosplenomegaly, normal bowel sounds, no guarding or rigidity. SPINE: No scoliosis or deformity SKIN: No rashes CENTRAL NERVOUS SYSTEM: No focal deficits, tone is normal in all 4 extremities. EXTREMITIES: There is 1 plus peripheral edema. No clubbing, no cyanosis. Peripheral pulses are intact. - Labs CBC & Chem 7: 11/02/21 05:14 11/02/21 05:14 Labs: Abnormal Lab Results - Last 24 Hours (Table) 11/02/21 11/02/21 Range/Units 05:14 05:14 RBC 5.97 H (4.30-5.90) m/uL Hct 56.5 H (39.0-53.0) % MCHC 30.1 L (31.0-37.0) g/dL RDW 18.6 H (11.5-15.5) % Potassium 3.2 L (3.5-5.5) mmol/L Chloride 90 L (96-109) mmol/L Carbon Dioxide 33.2 H (20.0-27.5) mmol/L Glucose 111 H (70-110) mg/dL Total Protein 6.0 L (6.2-8.2) g/dL Albumin 3.1 L (3.8-4.9) g/dL Albumin/Globulin Ratio 1.11 L (1.60-3.17) g/dL Assessment and Plan Assessment: 1 Acute hypoxemic respiratory failure secondary to suspected aspiration pneumonia, diastolic congestive heart failure and obesity/hypoventilation syndrome. CoVID screen negative. He is currently on AirVo high flow oxygen at 50 L and 70% FiO2. Doing well and interactive. Diuresed another 3.3 L. He remains on IV diuretics. 2 History of Down syndrome 3 History of hyperlipidemia 4 History of gastroesophageal reflux disease 5 Obstructive sleep apnea, intolerant to CPAP 6 Obesity/hypoventilation syndrome Plan: The patient was seen and evaluated X-ray and labs reviewed Repeat a pro-calcitonin Continue diuretics for now Titrate down the FiO2 as tolerated Aspiration precautions We will continue to follow I, the cosigning physician, performed a history & physical examination of the patient. Lungs sounds with bibasilar crackles. Maintaining O2 saturations in the 90s on 50 L and 70% FiO2 via the AirVo high flow oxygen. I discussed the assessment and plan of care with my nurse practitioner, Roxana. I attest to the above note as dictated by her.
[2021-11-02] MEDS: SODIUM CHLORIDE 0.9% 500 ML 500 ML IV SCH (15:17)
[2021-11-02] MEDS: POTASSIUM CHLORIDE 20 MEQ in WATER FOR INJECTION 1 100ML.BAG IVPB SCH ×3 (17:10→23:12)
--- NOTE | 2021-11-02 22:27 | P.PN ---
Subjective Progress Note Date: 11/02/21 Patient is evaluated today as this morning sitting up in the chair, he is on Lasix and lisinopril with a heart with a nonrebreather placed on top of it. Patient is hypoxic with oxygen saturation between 80-89% on initial presentation. This morning he was an Ateam due to hypoxia as well as intractible nausea and vomiting. He was given a dose of IV reglan which made him drowsy. He is hard to arouse during my examination, however, I was able to assist the patient to sit forward and take a few deep breaths to which his oxygen staturation increased to 96-97%. Labs from this morning include a white count of 7.1, hemoglobin 16.3, d-dimer yesterday was 0.82, ABGs show a pH of 7.35, pCO2 90, pO2 77, HCO3 49, CO2 52. Sodium today is 135, potassium 3.8, chloride 86, CO2 41, glucose 103, albumin 3.1, repeat Covid PCR is not detected. Pro- calcitonin on admission was negative at 0.09, BNP 265 the 25th. Abdomen x-ray this morning showed nonspecific abdomen, limited treatment, bibasilar infiltrates. Chest x-ray shows patchy perihilar and basilar infiltrates persistent essentially unchanged. Patient was evaluated by cardiology today who is recommending to hold diuretics for now as patient possibly has contraction alkalosis due to aggressive diuresis. Potassium will be replaced today, lasix held. 10/23/2021 Patient evaluated today in bed in the ICU. He is awake and alert this morning. He is on BiPAP 100%, he did have another episode of nausea vomiting per nurse at the bedside. Vitals today afebrile, heart rate 74, blood pressure 111/65, 93% oxygen saturation. Labs reviewed today show a WBC of 5.5, platelet count 141, sodium 134, potassium 4.3, chloride 86, CO2 41, creatinine 0.57, glucose 148, albumin 3.1. Repeat chest xray today shows patchy perihilar and basilar infiltrates compatible with COVID 19 pneumonia. Although his COVID PCR has been negative x2 this admission. Continues on IV pepcid, IV solu-medrol, IV zosyn, lovenox, and bronchodilators. He is being followed closely by pulmonary/field service tech. 10/25/2021 Patient is currently in the MICU. On BiPAP with 100% FiO2. Chest x-ray showed bibasilar airspace disease and atelectasis. Laboratory data showed WBC 5.9 hemoglobin 16.0 and platelets 162 Sodium 134 potassium 4.1 chloride 89 BUN 21 creatinine 0.61 Patient is being continued on antibiotics with follow-up with Zosyn. On IV Lasix drip. Pulmonary is on board. Continued on duo nebs. 10/26/2021 Patient is currently in MICU. Admitted to hospital due to CHF and possible aspiration pneumonia. Chest x-ray today showed persistent bilateral pulmonary infiltrates. Patient is currently off BiPAP and using Airvo at 60 L and FiO2 90% and 100% nonrebreather. Patient is maintained antibiotics now Zosyn. on lasix drip Patient is being continued on. Laboratory showed WBC 5.6 hemoglobin 17.9 and platelets 185 Sodium 138 potassium 4.2 chloride 93 bicarb is 38 BUN 2020 creatinine 0.63 10/27/2021 Patient is in the MICU. Awake and alert. Off BiPAP and currently onAirvo and saturating more than 90%. Patient is being continued on Lasix drip and is also on Zaroxolyn. Currently on TPN for nutritional support. Patient is being followed on antibiotics in the form of Zosyn. Laboratory data showed WBC 7.5 hemoglobin 18.0 and platelets 177 BUN 33 and creatinine 0.67 sodium 132 and potassium 4.1 chloride 82. Patient is being transferred to medical floor today. 10/28/2021 Patient is in the medical floor. Sitting in the chair comfortably. On Airvo high flow oxygen at 6 L and 75% FiO2. Patient did not require BiPAP last night. Patient is on Lasix drip changed to IV Lasix. Also on Zaroxolyn. Patient does have negative balance. Laboratory data showed sodium 132 potassium 3.1 chloride 73 bicarb is 49 BUN 15 creatinine 0.94 and magnesium 1.7 10/29/2021 Patient is currently sitting in the chair. Awake alert and appears to be in no distress. Currently on high flow at 6 L with FiO2 85%. Saturating around 90%. Patient has been afebrile. Currently maintained on antibiotics with normal Zosyn. Continue IV Lasix. Laboratory showed WBC 8.1 hemoglobin 18.6 and platelets 135 sodium 135 potassium 3.3 chloride 81 bicarb is 38.5 BUN 35.4 and creatinine 0.9 magnesium 2.6 and total bilirubin level is 1.6. Pulmonary is on board. 10/30/2021 Patient is currently in the MedSurg unit. Sitting in the chair comfortably. Requiring high flow oxygen with FiO2 65% and 60 L/min. Chest x-ray today showed basilar atelectasis, correlate to exclude pneumonia. Edema and follow-up recommended. Laboratory data showed sodium 132 potassium 2.9 chloride 81 bicarb 35 BUN 37 creatinine 0.98 and blood sugar 203 Pulmonary is on board. 10/31/2021 Patient is currently sitting in the chair. Awake alert but able to communicate minimally. Denied any complaints of worsening shortness of breath or chest pain. Still on high flow oxygen at 50 L and FiO2 60%. Patient is being current on IV antibiotics in the form of Zosyn. Current Lasix 40 mg IV every 12. DVT prophylaxis Lovenox. Laboratory data showed WBC 8.3 hemoglobin 18.1 and platelets 151 Sodium 133 potassium 3.1 chloride 83 bicarb is 33.6 BUN 26.7 creatinine 0.9. Blood sugar is 147 11/01/2021 Patient is in the MedSurg unit. Sitting in the chair. Awake and alert. No apparent distress. Requiring high flow oxygen at 50 L and FiO2 70%. Patient is being current on antibiotics involve Zosyn and Lasix 40 mg every 12. Continued on duo nebs. Patient has been afebrile. Tolerating oral diet. No nausea vomi ting abdominal pain or diarrhea. 11/02/2021 Patient is a 45-year-old male mentally challenged, admitted to the hospital due to acute CHF exacerbation and possible aspiration.. Patient is currently sitting in the chair. Still requiring high flow oxygen 50 L FiO2 70%. Chest x-ray showed bilateral patchy airspace disease. No pneumothorax or pleural effusion. Patient does have right-sided PICC line. Laboratory data showed WBC 7.2 hemoglobin 17.0 platelets 175 Sodium 139 potassium 3.2 chloride 90 bicarb is 33.2 BUN 12.7 creatinine 0.7 Review of systems is difficult to obtain due to patient's clinical status and oxygen support, . Current medications reviewed. Objective - Vital Signs Vital signs: Vital Signs Temp 98.1 F 11/02/21 20:23 Pulse 74 11/02/21 20:23 Resp 20 11/02/21 20:23 BP 146/67 11/02/21 20:23 Pulse Ox 96 11/02/21 20:23 Intake & Output 11/02/21 11/02/21 11/03/21 06:59 18:59 06:59 Output Total 1500 1400 Balance -1500 -1400 Weight 115 kg 115 kg Output: Urine 1500 1400 Coude 300 Other: Voiding Method Indwelling Catheter Indwelling Catheter - Exam PHYSICAL EXAMINATION: GENERAL: The patient is alert and oriented x1 is his baseline, appears in mild respiratory distress at the time of my examination. Well developed, well nourished. on BiPAP. HEENT: Pupils are round and equally reacting to light. EOMI. No scleral icterus. No conjunctival pallor. Normocephalic, atraumatic. No pharyngeal erythema. No thyromegaly. CARDIOVASCULAR: S1 and S2 present. No murmurs, rubs, or gallops. PULMONARY: Breath sounds crackles in the bases ABDOMEN: Soft, nontender, nondistended, normoactive bowel sounds. No palpable organomegaly. Obese abdomen MUSCULOSKELETAL: No joint swelling or deformity. EXTREMITIES: No cyanosis, clubbing, Bilateral lower extremity swelling improved NEUROLOGICAL: Gross neurological examination did not reveal any focal deficits. Pt is lethargic, difficult to obtain a focused neuro exam. SKIN: No rashes. - Labs CBC & Chem 7: 11/02/21 05:14 11/02/21 05:14 Labs: Abnormal Lab Results - Last 24 Hours (Table) 11/02/21 11/02/21 Range/Units 05:14 05:14 RBC 5.97 H (4.30-5.90) m/uL Hct 56.5 H (39.0-53.0) % MCHC 30.1 L (31.0-37.0) g/dL RDW 18.6 H (11.5-15.5) % Potassium 3.2 L (3.5-5.5) mmol/L Chloride 90 L (96-109) mmol/L Carbon Dioxide 33.2 H (20.0-27.5) mmol/L Glucose 111 H (70-110) mg/dL Total Protein 6.0 L (6.2-8.2) g/dL Albumin 3.1 L (3.8-4.9) g/dL Albumin/Globulin Ratio 1.11 L (1.60-3.17) g/dL Assessment and Plan Assessment: Assessment and plan -Acute hypoxic and hypercapnic respiratory failure secondary to aspiration pneumonia, and obesity hypoventilation syndrome, and acute diastolic congestive heart failure. -New-onset the congestive heart failure is to have diastolic dysfunction had a normal ejection fraction. -Obesity hypoventilation syndrome -History of obstructive sleep apnea; does not tolerate CPAP. -Down syndrome -Gastroesophageal reflux disease -Nausea, vomiting possible due to respiratory alkalosis due to acute hypoxic respiratory failure -Possible aspiration pneumonia secondary to above DVT prophylaxis: Lovenox GI: Prophylaxis: Pepcid FULL CODE Plan Monitor oxygen saturation closely. Requiring high flow oxygen Continue on IV antibiotics Continue bronchodilators Continue all other supporitve care Repeat labs in AM Time with Patient: Greater than 30
[2021-11-03] MEDS: METOCLOPRAMIDE 5 MG/ML 2 ML VIAL IVP SCH ×4 (00:34→17:12)
[2021-11-03] MEDS: IPRATROPIUM-ALBUTEROL 3 ML NEB INHALATION SCH ×4 (07:36→19:24)
[2021-11-03 07:53] LABS: Anisocytosis Slight; HGB 17.5 gm/dL (13.0-17.5); Hypochromasia Marked; MCH 28.5 pg (25.0-35.0); MCHC 29.7 g/dL (31.0-37.0); MCV 96.1 fL (80.0-100.0); Macrocytosis Slight; Mean Platelet Volume 11.7; Platelet Count 168 k/uL (150-450); RBC 6.12 m/uL (4.30-5.90); RDW 18.7 % (11.5-15.5); WBC 5.8 k/uL (3.8-10.6)
[2021-11-03] MEDS: FUROSEMIDE 10 MG/ML 4 ML VIAL IV SCH (08:06)
[2021-11-03] MEDS: ATORVASTATIN 40 MG TAB PO SCH (08:07)
[2021-11-03] MEDS: ENOXAPARIN 60 MG/0.6 ML SYRINGE SQ SCH (08:07)
[2021-11-03] MEDS: FAMOTIDINE 20 MG/2 ML VIAL IV SCH ×2 (08:07→20:42)
[2021-11-03] MEDS: POTASSIUM CHLORIDE ER 20 MEQ TAB.ER PO SCH (08:07)
[2021-11-03 08:30] LABS: HCT 58.9 % (39.0-53.0)
[2021-11-03 09:46] LABS: African American GFR (CKD) 138.8 (60.0-200.0); Anion Gap 10.2 mmol/L (10.00-18.00); BUN/Creat Ratio 21.5 Ratio (12.00-20.00); Blood Urea Nitrogen 12.9 mg/dL (9.0-27.0); Calcium 8.4 mg/dL (8.7-10.3); Carbon Dioxide 34.8 mmol/L (20.0-27.5); Non-African American GFR(CKD) 119.7 (60.0-200.0); Potassium 3.4 mmol/L (3.5-5.5)
[2021-11-03 12:00] LABS: Eosinophils # (M) 0.12 k/uL (0-0.7); Lymphocytes # (M) 1.28 k/uL (1.0-4.8); Monocytes # (M) 1.04 k/uL (0-1.0); Myelocytes # (M) 0.06 k/uL (0); Myelocytes % 1 %; Neutrophils # (M) 3.31 k/uL (1.3-7.7); Neutrophils % (M) 57 %; Nucleated Red Blood Cells 0 /100 WBC (0-0); Total Cells Counted 100
[2021-11-03 12:01] LABS: Large Platelets Present
--- NOTE | 2021-11-03 12:34 | P.PN ---
Subjective Progress Note Date: 11/03/21 This is a pleasant 45-year-old gentleman with a known history of Down syndrome, hyperlipidemia, obstructive sleep apnea but intolerant to CPAP, gastroesophageal reflux disease. He has a poor historian. He was brought into the emergency room yesterday after his family found him to be short of breath with cough and swelling of the lower extremities. He is quite hypoxic on arrival by EMS and was placed on nonrebreather mass. His x-ray reveals evidence of cardiomegaly with diffuse interstitial edema and basilar infiltrates. EKG reveals normal sinus rhythm without acute ST or T wave abnormalities. White count 6.9. Hemoglobin 17.1. Sodium 134. Creatinine 0.65. Lactic acid 1.5. AST 93. ALT 70. ProBNP 2470. Troponin 0.025. Chavira virus by PCR not detected. He was initiated on IV diuretics, antibiotics, bronchodilators and steroids. He is seen today in consultation in the emergency department. He is currently sitting up in a stretcher. Awake and alert in no acute distress. He is requiring 15 L high flow nasal cannula to maintain O2 saturation in the 90s. He's been afebrile. Hemodynamically stable. So far he is diuresed 1300 ML's. Weight 127 kg. On 10/19/2021 patient seen in follow-up on medical surgical floor, this morning his breathing was significantly labored, rapid response team was called, and patient was placed on BiPAP support with pressures of 12 and 5 and FiO2 100%. He continues on IV diuretics, he is currently on Lasix 40 mg every 12 hours, he is diuresing quite extensively, and he is currently in negative 5.3 L net fluid balance over the last 24 hours, lung sounds reveal diffuse crackles and diminished breath sounds, with slightly better aeration at the left lung. Bose catheter is in, and draining large amount of clear yellow urine, patient is aw jemal and alert, he is tolerating BiPAP support quite well, his been afebrile, no complaints of chest pain, his chest x-ray today shows stable bilateral infiltrates and pleural effusion. His pro calcitonin level was negative his antibiotics were discontinued, steroids have been discontinued, patient has been started on nebulized treatments. BMP results have been reviewed showing sodium of 143, potassium is 4.3, chloride is 94, CO2 is 39, BUN of 14, creatinine 0.7. On 10/20/2021 patient seen in follow-up on medical surgical floor. His breathing has significantly improved with diuresis, he is currently off BiPAP support, and on 15 L per high flow nasal cannula, his pulse ox is 94%, breathing very comfortably, lung sounds are diminished, without rales or wheezes, however patient is a shallow breather, he needs encouragement to take deep breaths and cough. No coughing noted, his been afebrile, we added Zosyn for his history of aspiration related to his fast eating habits. However his pro calcitonin level has been negative, but in view of his hypoxia we will cover him with Zosyn empir ically. He is in -3470 mL net fluid balance over the last 24 hours, lower extremity edema is improving, he remains on IV Lasix at 40 mg every 12 hours, he is on DuoNeb nebulized treatments, he is on Pepcid. We'll add Lovenox for DVT prophylaxis, today's labs have been reviewed showing white blood cell count of 9.2, hemoglobin of 16.2, sodium is 140, potassium is 4.1, chloride is 89, CO2 is 38, BUN of 13, creatinine 0.8. No nausea or vomiting, no diarrhea. He is feeling hungry, he would like to eat Reevaluated today on 10/21/21, patient is back on BiPAP today. And he is on the percent FiO2 feeling better breathing easier, but had a bit of a setback and requiring more FiO2 to maintain adequate oxygenation. Patient remains on diuretics, remains on antibiotics empirically, furosemide is at 40 mg IV push every 12 hours. Patient is marginal at best. He is not a great historian but he does not seem to be in distress on BiPAP. Labs today showed BNP level of 265, his blood sugar was 180. WBC count is 9.4. On 10/22/2021 patient seen in follow-up on medical surgical floor. He is cu rrently on BiPAP of 12 and 500% FiO2, his pulse ox is 95-97%, and his FiO2 will be cut back to 80%, patient has been coming off the BiPAP on 15 L high flow to it however she quickly desaturates, and has to return to BiPAP, otherwise he is breathing comfortably, his lung sounds are diminished, I did not appreciate any crackles or wheezing. He remains on IV Lasix 40 mg every 12 hours, And he is in negative 4.6 L net fluid balance over the last 24 hours, lower extremity edema is improving, yesterday chest x-ray showing interval decrease in bilateral airspace and interstitial opacities. On 10/23/2021 patient seen in follow-up on medical surgical floor. Earlier today he was on BiPAP support, with pressures of 12 and 5 and FiO2 of 100%, however he started vomiting, BiPAP was removed, patient was placed on Airvo, he was given a dose of Reglan, rapid response team was called, abdominal x-ray was obtained, showing nonspecific abdomen. he denies any abdominal pain, abdomen is soft, he did have a bowel movement yesterday. Chest x-ray showed patchy perihilar and basilar infiltrates, without significant change. Patient has been extensively diuresed, he is in -2.6 L net fluid balance over the last 24 hours. Resolved volume contraction alkalosis, his CO2 is up to 41, sodium was 135, pot assium 3.8, chloride is 86, B1 is 14 creatinine 0.6. Blood gas showed pO2 of 77, pCO2 of 90, pH is 7.35, consistent with chronic hypercapnic respiratory failure. D-dimer was not significantly elevated only 0.82, low stemming Doppler showed no evidence of DVT. No cough, no chest pain, no hemoptysis. The patient is suspected to be aspirating, and she has been on Zosyn for last 48 hours, today's labs show normal white count of 7.1, hemoglobin 16.3 proBNP level was about 265, and this was a significantly improved value from admission which was 2470 Reevaluated today on 10/24/21, patient is now in the ICU, placed back on BiPAP 16/800%, patient was noted to be placed on non-rebreather mask and airvo last night, and the patient is noted to be a bit lethargic but arousable. I recommended immediate placement on BiPAP, and this was done. His CT angiogram of the chest done yesterday and no evidence of pulmonary embolism as expected however it did show bilateral infiltrates, and I'm still suspicious that the patient is developing aspiration pneumonia as he did in the past. Patient does have a chronic history of aspiration pneumonia. WBC count today is 5.5 hemoglobin is 15.8. Normal basic metabolic profile is normal renal profile is normal bicarb is 41. Patient remains on updrafts, is also on Lovenox extremely milligrams twice a day and I will cut it down to 40 mg subcu daily remains on methylprednisolone, and he is also on Zosyn. Reevaluated today on 10/25/21, remains in the ICU, sitting at a bedside chair, remains on BiPAP, he is on 100% FiO2, IPAP of 16 and EPAP of 8, patient seems to be comfortable and he is not in distress. I recommended tapering down his FiO2 however the patient is to stay on BiPAP, and is to stay in the ICU for today. Chest x-ray continues show by basilar airspace disease and atelectasis. CBC is relatively normal, basic metabolic profile is normal bicarb is 39. ABG prior to transferring the patient to the ICU on BiPAP showed a pO2 of 54 pCO2 95 pH of 7.33 and this was 2 days ago. 10/26/2021, the patient is being seen in follow-up in intensive care unit. 45-year-old male patient with known history of Down syndrome, currently on a BiPAP for respiratory support due to palpitations of CHF and possible aspiration. Repeat chest x-ray was done today and it shows again persistent bilateral pulmonary infiltrates in the lower lung colon. Mediastinum is less wide compared to yesterday. There may be some improvement in the volume status. There is no significant cardiomegaly on today's chest x-ray. Meanwhile, the patient's is currently off the BiPAP. He is using Airvo at 60 L with an FiO2 of 90% in addition to 100% nonrebreather facemask and his current pulse ox is in the order of 85%. His current cardiac rhythm is sinus. His fluid balance over the past 24 hours has been +185 mL. The patient however is producing urine outp ut and the urine output is in order of 25-30 mL an hour.. He is currently on IV Zosyn covering him for aspiration pneumonia. He is nothing by mouth for now and the patient is receiving PPN for nutritional support. On today's blood work, his white cell count of 5.6 with a hemoglobin of 17.9, platelets of 185, BUN of 22 with a creatinine of 0.6 and the sodium level is at 138. Meanwhile, his echo cardiogram that was done on 10/18/2021 showed a preserved LV function with an ejection fraction of 50-55%, no significant valvular abnormalities have been noted. The patient pro-calcitonin level and time of admission was 0.09. The patient's proBNP level at the time of admission was 2470 and it dropped down to 265. 10/27/2021, the patient is doing well. As the patient is awake and alert. The patient is off BiPAP and the patient is currently on Airvo 60 L of 5-70%. The patient is also utilizing on and off 100% nonrebreather facemask. The patient was started on a Lasix drip yesterday 5 mg an hour. The patient is also on Zaroxolyn 2.5 mg twice a day. Overall fluid balance is -4.2 L over the past 24 hours. Meanwhile, the patient feels less short of breath. Chest x-ray still showing pulmonary edema and bilateral pleural effusions. There may be some limited improvement in the volume status bilaterally. Clinically the patient is more stable and his breathing is not labored this point in time. In terms of his blood work, the patient's sodium level today is at 132 with a potassium level of 4.1 and serum bicarbonate 38. The blood gas showed a pH of 7.4 with a pCO2 of 73 and pO2 of 63 from yesterday and this was done and FiO2 of 70% while being on Airvo at 60 L. The white cell count today is at 7.5 with hemoglobin of 18 and platelet count of 177. In terms of treatment, the patient is still on Lasix drip and Zaroxolyn. The patient is also on empiric antibiotic coverage w ith IV Zosyn covering for aspiration pneumonia. In terms of his swallow, he is able to swallow. I think it's reasonable to advance his diet and discontinue TPN for now. The patient is seen today 10/28/2021 in follow-up on the regular medical floor. He is currently sitting up in a chair at the bedside. Awake and alert in no acute distress. He remains on AirVo high flow oxygen at 60 L and 75% FiO2. He did not require the BiPAP last night. Sodium 132. Potassium 3.1. Chloride 73. Bicarb 49. BUN 50. Creatinine 0.94. Glucose 146. He is currently on a Lasix drip at 5 mg per hour. He is also on Zaroxolyn. He is in -9 L balance the past 24-48 hours. Weight of 128 kg. He remains on antibiotics in the form of Zosyn. Lovenox for DVT prophylaxis. Continue bronchodilators. The patient is seen today 10/29/2021 in follow-up on the regular medical floor. He is awake and alert in no acute distress. Sitting up in a chair at the bedside. He remains on AirVo high flow oxygen at 60 L and 85% FiO2. He is maintaining O2 saturations in the low 90s. White count 8.1. Hemoglobin 18.6. Sodium 135. Potassium 2.3. Bicarb 38. Glucose 123. Creatinine 0.9. AST 41. ALT 41. He remains on Lovenox, bronchodilators. IV diuretics. Remains in a - 0.9 L balance. Antibiotics in the form of Zosyn. He has not utilized the BiPAP. The patient is seen today 11/01/2021 in follow-up on the regular medical floor. He is awake and alert in no acute distress. His mom is currently with him at the bedside. He is still requiring AirVo high flow oxygen at 50 liters and 70% FiO2 with O2 saturation of 90%. He is continued on DuoNeb inhalations, IV diuretics. Lovenox for DVT prophylaxis. He remains in a -2.3 L balance. Follow-up labs pending. The patient is seen today 11/02/2021 in follow-up on the regular medical floor. He is sitting up in bed. Awake and alert. Continues to require high flow AirVo at 50 L and 70% FiO2. Once the patient's oxygen was titrated down he did drop to 86%. Chest x-ray continues to show bilateral patchy airspace disease. No pneumothorax or pleural effusion. Right-sided PICC line remains in place. White count 7.2. Hemoglobin 17.0. Sodium 139. Potassium 3.2. Creatinine 0.7. AST 25. ALT 76. He is continued on DuoNeb inhalations. The patient seen today 11/03/2021 in follow-up on the regular medical floor. He is currently sitting up in a chair at the bedside. Awake and alert in no acute distress. Very interactive today. He is still requiring AirVo high flow oxygen at 45 L and 50% FiO2. Respiratory continues to work to titrate it down. He remains on DuoNeb inhalations 4 times a day. White count 5.8. Hemoglobin 17.5. Sodium 136. Potassium 3.4. Chloride 91. Bicarb 34. Creatinine 0.6. Pro- calcitonin 0.08. Objective - Vital Signs Vital signs: Vital Signs Temp 99.7 F H 11/03/21 04:17 Pulse 82 11/03/21 11:15 Resp 22 11/03/21 04:17 BP 148/71 11/03/21 04:17 Pulse Ox 97 11/03/21 11:32 Intake & Output 11/02/21 11/03/21 11/03/21 18:59 06:59 18:59 Output Total 1400 900 1 Balance -1400 -900 -1 Weight 115 kg 115 kg Output: Urine 1400 900 Stool 1 Other: Voiding Method Indwelling Catheter Indwelling Catheter Indwelling Catheter - Exam GENERAL EXAM: Alert, interactive, very pleasant 45-year-old Down syndrome gentleman, on interval high flow oxygen at 45 L and 50% FiO2, comfortable in no apparent distress. HEAD: Normocephalic. EYES: Normal reaction of pupils, equal size. NOSE: Clear with pink turbinates. THROAT: No erythema or exudates. NECK: No masses, no JVD. CHEST: No chest wall deformity. LUNGS: Equal air entry with bibasilar crackles CVS: S1 and S2 normal with no audible murmur, regular rhythm. ABDOMEN: No hepatosplenomegaly, normal bowel sounds, no guarding or rigidity. SPINE: No scoliosis or deformity SKIN: No rashes CENTRAL NERVOUS SYSTEM: No focal deficits, tone is normal in all 4 extremities. EXTREMITIES: There is 1 plus peripheral edema. No clubbing, no cyanosis. Peripheral pulses are intact. - Labs CBC & Chem 7: 11/03/21 05:25 11/03/21 05:25 Labs: Abnormal Lab Results - Last 24 Hours (Table) 11/03/21 11/03/21 11/03/21 Range/Units 00:27 05:25 05:25 RBC 6.12 H (4.30-5.90) m/uL Hct 58.9 H* (39.0-53.0) % MCHC 29.7 L (31.0-37.0) g/dL RDW 18.7 H (11.5-15.5) % Monocytes # (Manual) 1.04 H (0-1.0) k/uL Myelocytes # (Manual) 0.06 H (0) k/uL Potassium 3.4 L 3.4 L (3.5-5.1) mmol/L Chloride 91 L (96-109) mmol/L Carbon Dioxide 34.8 H (20.0-27.5) mmol/L BUN/Creatinine Ratio 21.50 H (12.00-20.00) Ratio Glucose 162 H (70-110) mg/dL Calcium 8.4 L (8.7-10.3) mg/dL Assessment and Plan Assessment: 1 Acute hypoxemic respiratory failure secondary to suspected aspiration pneumonia, diastolic congestive heart failure and obesity/hypoventilation syndrome. CoVID screen negative. He is currently on AirVo high flow oxygen at 45 L and 50% FiO2. Doing well and interactive. Diuresed another 3.3 L. He remains on IV diuretics. 2 History of Down syndrome 3 History of hyperlipidemia 4 History of gastroesophageal reflux disease 5 Obstructive sleep apnea, intolerant to CPAP 6 Obesity/hypoventilation syndrome Plan: The patient was seen and evaluated Procalcitonin within normal limits Reminas off antibiotics for now Decrease diuretics to daily Titrate down the FiO2 as tolerated Aspiration precautions We will continue to follow I, the cosigning physician, performed a history & physical examination of the patient. Lungs sounds with bibasilar crackles. Maintaining O2 saturations in the 90s on 45 L and 50% FiO2 via the AirVo high flow oxygen. I discussed the assessment and plan of care with my nurse practitioner, Roxana. I attest to the above note as dictated by her.
[2021-11-03] MEDS: SODIUM CHLORIDE 0.9% 500 ML 500 ML IV SCH (16:10)
[2021-11-04] MEDS: METOCLOPRAMIDE 5 MG/ML 2 ML VIAL IVP SCH ×5 (00:31→23:32)
[2021-11-04] MEDS: IPRATROPIUM-ALBUTEROL 3 ML NEB INHALATION SCH ×4 (07:20→19:26)
[2021-11-04] MEDS: ENOXAPARIN 60 MG/0.6 ML SYRINGE SQ SCH (07:59)
[2021-11-04] MEDS: FUROSEMIDE 10 MG/ML 4 ML VIAL IV SCH (08:00)
[2021-11-04] MEDS: POTASSIUM CHLORIDE ER 20 MEQ TAB.ER PO SCH (08:00)
[2021-11-04] MEDS: FAMOTIDINE 20 MG/2 ML VIAL IV SCH ×2 (08:00→21:09)
[2021-11-04] MEDS: ATORVASTATIN 40 MG TAB PO SCH (08:00)
[2021-11-04] MEDS: SODIUM CHLORIDE 0.9% 500 ML 500 ML IV SCH (12:11)
--- NOTE | 2021-11-04 13:51 | P.PN ---
Subjective Progress Note Date: 11/03/21 45-year-old gentleman with a known history of Down syndrome, hyperlipidemia, obstructive sleep apnea but intolerant to CPAP, gastroesophageal reflux disease. He has a poor historian. He was brought into the emergency room yesterday after his family found him to be short of breath with cough and swelling of the lower extremities. He is quite hypoxic on arrival by EMS and was placed on nonrebreather mass. His x-ray reveals evidence of cardiomegaly with diffuse interstitial edema and basilar infiltrates. EKG reveals normal sinus rhythm without acute ST or T wave abnormalities. White count 6.9. Hemoglobin 17.1. Sodium 134. Creatinine 0.65. Lactic acid 1.5. AST 93. ALT 70. ProBNP 2470. Troponin 0.025. Chavira virus by PCR not detected. He was initiated on IV diuretics, antibiotics, bronchodilators and steroids. He is seen today in consultation in the emergency department. He is currently sitting up in a stretcher. Awake and alert in no acute distress. He is requiring 15 L high flow nasal cannula to maintain O2 saturation in the 90s. He's been afebrile. Hemodynamically stable. So far he is diuresed 1300 ML's. Weight 127 kg. 11/03/2021 Patient is seen and evaluated in follow-up with family members present and room. He is currently sitting up in a chair at the bedside. Awake and alert in no acute distress. Very interactive today. He is still requiring AirVo high flow oxygen at 45 L and 50% FiO2. Respiratory continues to work to titrate it down. He remains on DuoNeb inhalations 4 times a day. White count 5.8. Hemoglobin 17.5. Sodium 136. Potassium 3.4. Chloride 91. Bicarb 34. Creatinine 0.6. Pro-calcitonin 0.08. Pulmonary service on board and recommending to continue off antibiotics, decrease diuretics to a daily dosing; respiratory we'll continue to titrate FiO2 down as able Objective - Vital Signs Vital signs: Vital Signs Temp 99.7 F H 11/03/21 04:17 Pulse 82 11/03/21 11:15 Resp 22 11/03/21 04:17 BP 148/71 11/03/21 04:17 Pulse Ox 97 11/03/21 11:32 Intake & Output 11/02/21 11/03/21 11/03/21 18:59 06:59 18:59 Output Total 1400 900 1 Balance -1400 -900 -1 Weight 115 kg 115 kg Output: Urine 1400 900 Stool 1 Other: Voiding Method Indwelling Catheter Indwelling Catheter Indwelling Catheter - Exam GENERAL: The patient is alert and oriented x1 is his baseline, appears in mild respiratory distress at the time of my examination. Well developed, well n ourished. on BiPAP. HEENT: Pupils are round and equally reacting to light. EOMI. No scleral icterus. No conjunctival pallor. Normocephalic, atraumatic. No pharyngeal erythema. No thyromegaly. CARDIOVASCULAR: S1 and S2 present. No murmurs, rubs, or gallops. PULMONARY: Breath sounds crackles in the bases ABDOMEN: Soft, nontender, nondistended, normoactive bowel sounds. No palpable organomegaly. Obese abdomen MUSCULOSKELETAL: No joint swelling or deformity. EXTREMITIES: No cyanosis, clubbing, Bilateral lower extremity swelling improved NEUROLOGICAL: Gross neurological examination did not reveal any focal deficits. Pt is lethargic, difficult to obtain a focused neuro exam. SKIN: No rashes. - Labs CBC & Chem 7: 11/03/21 05:25 11/03/21 05:25 Labs: Abnormal Lab Results - Last 24 Hours (Table) 11/03/21 11/03/21 11/03/21 Range/Units 00:27 05:25 05:25 RBC 6.12 H (4.30-5.90) m/uL Hct 58.9 H* (39.0-53.0) % MCHC 29.7 L (31.0-37.0) g/dL RDW 18.7 H (11.5-15.5) % Monocytes # (Manual) 1.04 H (0-1.0) k/uL Myelocytes # (Manual) 0.06 H (0) k/uL Potassium 3.4 L 3.4 L (3.5-5.1) mmol/L Chloride 91 L (96-109) mmol/L Carbon Dioxide 34.8 H (20.0-27.5) mmol/L BUN/Creatinine Ratio 21.50 H (12.00-20.00) Ratio Glucose 162 H (70-110) mg/dL Calcium 8.4 L (8.7-10.3) mg/dL Assessment and Plan Assessment: -Acute hypoxic and hypercapnic respiratory failure secondary to aspiration pneumonia, and obesity hypoventilation syndrome, and acute diastolic congestive heart failure. -New-onset the congestive heart failure is to have diastolic dysfunction had a normal ejection fraction. -Obesity hypoventilation syndrome -History of obstructive sleep apnea; does not tolerate CPAP. -Down syndrome -Gastroesophageal reflux disease -Nausea, vomiting possible due to respiratory alkalosis due to acute hypoxic respiratory failure -Possible aspiration pneumonia secondary to above DVT prophylaxis: Lovenox GI: Prophylaxis: Pepcid FULL CODE Plan Monitor oxygen saturation closely. Requiring high flow oxygen Continue on IV antibiotics Continue bronchodilators Continue all other supporitve care Repeat labs in AM
--- NOTE | 2021-11-04 14:21 | P.PN ---
Subjective Progress Note Date: 11/04/21 This is a pleasant 45-year-old gentleman with a known history of Down syndrome, hyperlipidemia, obstructive sleep apnea but intolerant to CPAP, gastroesophageal reflux disease. He has a poor historian. He was brought into the emergency room yesterday after his family found him to be short of breath with cough and swelling of the lower extremities. He is quite hypoxic on arrival by EMS and was placed on nonrebreather mass. His x-ray reveals evidence of cardiomegaly with diffuse interstitial edema and basilar infiltrates. EKG reveals normal sinus rhythm without acute ST or T wave abnormalities. White count 6.9. Hemoglobin 17.1. Sodium 134. Creatinine 0.65. Lactic acid 1.5. AST 93. ALT 70. ProBNP 2470. Troponin 0.025. Chavira virus by PCR not detected. He was initiated on IV diuretics, antibiotics, bronchodilators and steroids. He is seen today in consultation in the emergency department. He is currently sitting up in a stretcher. Awake and alert in no acute distress. He is requiring 15 L high flow nasal cannula to maintain O2 saturation in the 90s. He's been afebrile. Hemodynamically stable. So far he is diuresed 1300 ML's. Weight 127 kg. On 10/19/2021 patient seen in follow-up on medical surgical floor, this morning his breathing was significantly labored, rapid response team was called, and patient was placed on BiPAP support with pressures of 12 and 5 and FiO2 100%. He continues on IV diuretics, he is currently on Lasix 40 mg every 12 hours, he is diuresing quite extensively, and he is currently in negative 5.3 L net fluid balance over the last 24 hours, lung sounds reveal diffuse crackles and diminished breath sounds, with slightly better aeration at the left lung. Bose catheter is in, and draining large amount of clear yellow urine, patient is aw jemal and alert, he is tolerating BiPAP support quite well, his been afebrile, no complaints of chest pain, his chest x-ray today shows stable bilateral infiltrates and pleural effusion. His pro calcitonin level was negative his antibiotics were discontinued, steroids have been discontinued, patient has been started on nebulized treatments. BMP results have been reviewed showing sodium of 143, potassium is 4.3, chloride is 94, CO2 is 39, BUN of 14, creatinine 0.7. On 10/20/2021 patient seen in follow-up on medical surgical floor. His breathing has significantly improved with diuresis, he is currently off BiPAP support, and on 15 L per high flow nasal cannula, his pulse ox is 94%, breathing very comfortably, lung sounds are diminished, without rales or wheezes, however patient is a shallow breather, he needs encouragement to take deep breaths and cough. No coughing noted, his been afebrile, we added Zosyn for his history of aspiration related to his fast eating habits. However his pro calcitonin level has been negative, but in view of his hypoxia we will cover him with Zosyn empir ically. He is in -3470 mL net fluid balance over the last 24 hours, lower extremity edema is improving, he remains on IV Lasix at 40 mg every 12 hours, he is on DuoNeb nebulized treatments, he is on Pepcid. We'll add Lovenox for DVT prophylaxis, today's labs have been reviewed showing white blood cell count of 9.2, hemoglobin of 16.2, sodium is 140, potassium is 4.1, chloride is 89, CO2 is 38, BUN of 13, creatinine 0.8. No nausea or vomiting, no diarrhea. He is feeling hungry, he would like to eat Reevaluated today on 10/21/21, patient is back on BiPAP today. And he is on the percent FiO2 feeling better breathing easier, but had a bit of a setback and requiring more FiO2 to maintain adequate oxygenation. Patient remains on diuretics, remains on antibiotics empirically, furosemide is at 40 mg IV push every 12 hours. Patient is marginal at best. He is not a great historian but he does not seem to be in distress on BiPAP. Labs today showed BNP level of 265, his blood sugar was 180. WBC count is 9.4. On 10/22/2021 patient seen in follow-up on medical surgical floor. He is cu rrently on BiPAP of 12 and 500% FiO2, his pulse ox is 95-97%, and his FiO2 will be cut back to 80%, patient has been coming off the BiPAP on 15 L high flow to it however she quickly desaturates, and has to return to BiPAP, otherwise he is breathing comfortably, his lung sounds are diminished, I did not appreciate any crackles or wheezing. He remains on IV Lasix 40 mg every 12 hours, And he is in negative 4.6 L net fluid balance over the last 24 hours, lower extremity edema is improving, yesterday chest x-ray showing interval decrease in bilateral airspace and interstitial opacities. On 10/23/2021 patient seen in follow-up on medical surgical floor. Earlier today he was on BiPAP support, with pressures of 12 and 5 and FiO2 of 100%, however he started vomiting, BiPAP was removed, patient was placed on Airvo, he was given a dose of Reglan, rapid response team was called, abdominal x-ray was obtained, showing nonspecific abdomen. he denies any abdominal pain, abdomen is soft, he did have a bowel movement yesterday. Chest x-ray showed patchy perihilar and basilar infiltrates, without significant change. Patient has been extensively diuresed, he is in -2.6 L net fluid balance over the last 24 hours. Resolved volume contraction alkalosis, his CO2 is up to 41, sodium was 135, pot assium 3.8, chloride is 86, B1 is 14 creatinine 0.6. Blood gas showed pO2 of 77, pCO2 of 90, pH is 7.35, consistent with chronic hypercapnic respiratory failure. D-dimer was not significantly elevated only 0.82, low stemming Doppler showed no evidence of DVT. No cough, no chest pain, no hemoptysis. The patient is suspected to be aspirating, and she has been on Zosyn for last 48 hours, today's labs show normal white count of 7.1, hemoglobin 16.3 proBNP level was about 265, and this was a significantly improved value from admission which was 2470 Reevaluated today on 10/24/21, patient is now in the ICU, placed back on BiPAP 16/800%, patient was noted to be placed on non-rebreather mask and airvo last night, and the patient is noted to be a bit lethargic but arousable. I recommended immediate placement on BiPAP, and this was done. His CT angiogram of the chest done yesterday and no evidence of pulmonary embolism as expected however it did show bilateral infiltrates, and I'm still suspicious that the patient is developing aspiration pneumonia as he did in the past. Patient does have a chronic history of aspiration pneumonia. WBC count today is 5.5 hemoglobin is 15.8. Normal basic metabolic profile is normal renal profile is normal bicarb is 41. Patient remains on updrafts, is also on Lovenox extremely milligrams twice a day and I will cut it down to 40 mg subcu daily remains on methylprednisolone, and he is also on Zosyn. Reevaluated today on 10/25/21, remains in the ICU, sitting at a bedside chair, remains on BiPAP, he is on 100% FiO2, IPAP of 16 and EPAP of 8, patient seems to be comfortable and he is not in distress. I recommended tapering down his FiO2 however the patient is to stay on BiPAP, and is to stay in the ICU for today. Chest x-ray continues show by basilar airspace disease and atelectasis. CBC is relatively normal, basic metabolic profile is normal bicarb is 39. ABG prior to transferring the patient to the ICU on BiPAP showed a pO2 of 54 pCO2 95 pH of 7.33 and this was 2 days ago. 10/26/2021, the patient is being seen in follow-up in intensive care unit. 45-year-old male patient with known history of Down syndrome, currently on a BiPAP for respiratory support due to palpitations of CHF and possible aspiration. Repeat chest x-ray was done today and it shows again persistent bilateral pulmonary infiltrates in the lower lung colon. Mediastinum is less wide compared to yesterday. There may be some improvement in the volume status. There is no significant cardiomegaly on today's chest x-ray. Meanwhile, the patient's is currently off the BiPAP. He is using Airvo at 60 L with an FiO2 of 90% in addition to 100% nonrebreather facemask and his current pulse ox is in the order of 85%. His current cardiac rhythm is sinus. His fluid balance over the past 24 hours has been +185 mL. The patient however is producing urine outp ut and the urine output is in order of 25-30 mL an hour.. He is currently on IV Zosyn covering him for aspiration pneumonia. He is nothing by mouth for now and the patient is receiving PPN for nutritional support. On today's blood work, his white cell count of 5.6 with a hemoglobin of 17.9, platelets of 185, BUN of 22 with a creatinine of 0.6 and the sodium level is at 138. Meanwhile, his echo cardiogram that was done on 10/18/2021 showed a preserved LV function with an ejection fraction of 50-55%, no significant valvular abnormalities have been noted. The patient pro-calcitonin level and time of admission was 0.09. The patient's proBNP level at the time of admission was 2470 and it dropped down to 265. 10/27/2021, the patient is doing well. As the patient is awake and alert. The patient is off BiPAP and the patient is currently on Airvo 60 L of 5-70%. The patient is also utilizing on and off 100% nonrebreather facemask. The patient was started on a Lasix drip yesterday 5 mg an hour. The patient is also on Zaroxolyn 2.5 mg twice a day. Overall fluid balance is -4.2 L over the past 24 hours. Meanwhile, the patient feels less short of breath. Chest x-ray still showing pulmonary edema and bilateral pleural effusions. There may be some limited improvement in the volume status bilaterally. Clinically the patient is more stable and his breathing is not labored this point in time. In terms of his blood work, the patient's sodium level today is at 132 with a potassium level of 4.1 and serum bicarbonate 38. The blood gas showed a pH of 7.4 with a pCO2 of 73 and pO2 of 63 from yesterday and this was done and FiO2 of 70% while being on Airvo at 60 L. The white cell count today is at 7.5 with hemoglobin of 18 and platelet count of 177. In terms of treatment, the patient is still on Lasix drip and Zaroxolyn. The patient is also on empiric antibiotic coverage w ith IV Zosyn covering for aspiration pneumonia. In terms of his swallow, he is able to swallow. I think it's reasonable to advance his diet and discontinue TPN for now. The patient is seen today 10/28/2021 in follow-up on the regular medical floor. He is currently sitting up in a chair at the bedside. Awake and alert in no acute distress. He remains on AirVo high flow oxygen at 60 L and 75% FiO2. He did not require the BiPAP last night. Sodium 132. Potassium 3.1. Chloride 73. Bicarb 49. BUN 50. Creatinine 0.94. Glucose 146. He is currently on a Lasix drip at 5 mg per hour. He is also on Zaroxolyn. He is in -9 L balance the past 24-48 hours. Weight of 128 kg. He remains on antibiotics in the form of Zosyn. Lovenox for DVT prophylaxis. Continue bronchodilators. The patient is seen today 10/29/2021 in follow-up on the regular medical floor. He is awake and alert in no acute distress. Sitting up in a chair at the bedside. He remains on AirVo high flow oxygen at 60 L and 85% FiO2. He is maintaining O2 saturations in the low 90s. White count 8.1. Hemoglobin 18.6. Sodium 135. Potassium 2.3. Bicarb 38. Glucose 123. Creatinine 0.9. AST 41. ALT 41. He remains on Lovenox, bronchodilators. IV diuretics. Remains in a - 0.9 L balance. Antibiotics in the form of Zosyn. He has not utilized the BiPAP. The patient is seen today 11/01/2021 in follow-up on the regular medical floor. He is awake and alert in no acute distress. His mom is currently with him at the bedside. He is still requiring AirVo high flow oxygen at 50 liters and 70% FiO2 with O2 saturation of 90%. He is continued on DuoNeb inhalations, IV diuretics. Lovenox for DVT prophylaxis. He remains in a -2.3 L balance. Follow-up labs pending. The patient is seen today 11/02/2021 in follow-up on the regular medical floor. He is sitting up in bed. Awake and alert. Continues to require high flow AirVo at 50 L and 70% FiO2. Once the patient's oxygen was titrated down he did drop to 86%. Chest x-ray continues to show bilateral patchy airspace disease. No pneumothorax or pleural effusion. Right-sided PICC line remains in place. White count 7.2. Hemoglobin 17.0. Sodium 139. Potassium 3.2. Creatinine 0.7. AST 25. ALT 76. He is continued on DuoNeb inhalations. The patient seen today 11/03/2021 in follow-up on the regular medical floor. He is currently sitting up in a chair at the bedside. Awake and alert in no acute distress. Very interactive today. He is still requiring AirVo high flow oxygen at 45 L and 50% FiO2. Respiratory continues to work to titrate it down. He remains on DuoNeb inhalations 4 times a day. White count 5.8. Hemoglobin 17.5. Sodium 136. Potassium 3.4. Chloride 91. Bicarb 34. Creatinine 0.6. Pro- calcitonin 0.08. The patient is seen today 11/04/2021 in follow-up on the regular medical floor. He was found sitting up in the chair at the bedside without his oxygen on. His O2 saturation was at 59% on room air. He recovered nicely up into the low 90s on the 15 L high flow nasal cannula that he's been asked to keep on. The patient does have Down syndrome. He needs closer supervision. Sitting staff was notified. No new labs today. He is continued on DuoNeb inhalations. IV diuretics. Lovenox for DVT prophylaxis. Objective - Vital Signs Vital signs: Vital Signs Temp 98.8 F 11/04/21 04:06 Pulse 80 11/04/21 11:35 Resp 20 11/04/21 04:06 BP 108/72 11/04/21 04:06 Pulse Ox 100 11/04/21 04:06 Intake & Output 11/03/21 11/04/21 11/04/21 18:59 06:59 18:59 Output Total 1 400 Balance -1 -400 Output: Urine 400 Stool 1 Other: Voiding Method Indwelling Catheter Indwelling Catheter Indwelling Catheter - Exam GENERAL EXAM: Alert, interactive, very pleasant 45-year-old Down syndrome gentleman, on 15 L high flow nasal cannula, comfortable in no apparent distress. HEAD: Normocephalic. EYES: Normal reaction of pupils, equal size. NOSE: Clear with pink turbinates. THROAT: No erythema or exudates. NECK: No masses, no JVD. CHEST: No chest wall deformity. LUNGS: Equal air entry with bibasilar crackles CVS: S1 and S2 normal with no audible murmur, regular rhythm. ABDOMEN: No hepatosplenomegaly, normal bowel sounds, no guarding or rigidity. SPINE: No scoliosis or deformity SKIN: No rashes CENTRAL NERVOUS SYSTEM: No focal deficits, tone is normal in all 4 extremities. EXTREMITIES: There is 1 plus peripheral edema. No clubbing, no cyanosis. Peripheral pulses are intact. - Labs CBC & Chem 7: 11/03/21 05:25 11/03/21 05:25 Assessment and Plan Assessment: 1 Acute hypoxemic respiratory failure secondary to suspected aspiration pneumonia, diastolic congestive heart failure and obesity/hypoventilation syndrome. CoVID screen negative. He is currently on 15 L high flow nasal cannula. Doing well and interactive. He remains on IV diuretics. He remains in a negative balance 2 History of Down syndrome 3 History of hyperlipidemia 4 History of gastroesophageal reflux disease 5 Obstructive sleep apnea, intolerant to CPAP 6 Obesity/hypoventilation syndrome Plan: The patient was seen and evaluated Stable and up in a chair at the bedside Titrate down the FiO2 as tolerated Aspiration precautions Follow-up labs in the a.m. We will continue to follow I, the cosigning physician, performed a history & physical examination of the patient. Lungs sounds with bibasilar crackles. Maintaining O2 saturations in the 90s on 15 L high flow nasal cannula. I discussed the assessment and plan of care with my nurse practitioner, Roxana. I attest to the above note as dictated by her.
[2021-11-05] MEDS: METOCLOPRAMIDE 5 MG/ML 2 ML VIAL IVP SCH ×2 (06:05→12:34)
[2021-11-05 07:47] LABS: Anisocytosis Slight; Hypochromasia Marked; MCH 27.7 pg (25.0-35.0); MCHC 29.3 g/dL (31.0-37.0); MCV 94.5 fL (80.0-100.0); Mean Platelet Volume 9.9; Platelet Count 195 k/uL (150-450); RBC 6.14 m/uL (4.30-5.90); RDW 18.5 % (11.5-15.5); WBC 5.6 k/uL (3.8-10.6)
[2021-11-05] MEDS: IPRATROPIUM-ALBUTEROL 3 ML NEB INHALATION SCH ×4 (08:07→20:00)
[2021-11-05] MEDS: ENOXAPARIN 60 MG/0.6 ML SYRINGE SQ SCH (08:18)
[2021-11-05] MEDS: POTASSIUM CHLORIDE ER 20 MEQ TAB.ER PO SCH ×3 (08:18→14:13)
[2021-11-05] MEDS: FUROSEMIDE 10 MG/ML 4 ML VIAL IV SCH (08:18)
[2021-11-05] MEDS: FAMOTIDINE 20 MG/2 ML VIAL IV SCH ×2 (08:18→20:04)
[2021-11-05] MEDS: ATORVASTATIN 40 MG TAB PO SCH (08:18)
[2021-11-05 10:03] LABS: Lymphocytes # (M) 1.06 k/uL (1.0-4.8); Neutrophils # (M) 4.03 k/uL (1.3-7.7); Neutrophils % (M) 72 %; Nucleated Red Blood Cells 0 /100 WBC (0-0); Total Cells Counted 100
[2021-11-05 11:27] LABS: African American GFR (CKD) 137.1 (60.0-200.0); Anion Gap 9.8 mmol/L (10.00-18.00); BUN/Creat Ratio 14.89 Ratio (12.00-20.00); Blood Urea Nitrogen 9.2 mg/dL (9.0-27.0); Calcium 8.7 mg/dL (8.7-10.3); Carbon Dioxide 36.8 mmol/L (20.0-27.5); Non-African American GFR(CKD) 118.3 (60.0-200.0); Potassium 3.2 mmol/L (3.5-5.5)
[2021-11-05] MEDS: SODIUM CHLORIDE 0.9% 500 ML 500 ML IV SCH (14:08)
--- NOTE | 2021-11-05 16:10 | P.PN ---
Subjective Progress Note Date: 11/05/21 This is a pleasant 45-year-old gentleman with a known history of Down syndrome, hyperlipidemia, obstructive sleep apnea but intolerant to CPAP, gastroesophageal reflux disease. He has a poor historian. He was brought into the emergency room yesterday after his family found him to be short of breath with cough and swelling of the lower extremities. He is quite hypoxic on arrival by EMS and was placed on nonrebreather mass. His x-ray reveals evidence of cardiomegaly with diffuse interstitial edema and basilar infiltrates. EKG reveals normal sinus rhythm without acute ST or T wave abnormalities. White count 6.9. Hemoglobin 17.1. Sodium 134. Creatinine 0.65. Lactic acid 1.5. AST 93. ALT 70. ProBNP 2470. Troponin 0.025. Chavira virus by PCR not detected. He was initiated on IV diuretics, antibiotics, bronchodilators and steroids. He is seen today in consultation in the emergency department. He is currently sitting up in a stretcher. Awake and alert in no acute distress. He is requiring 15 L high flow nasal cannula to maintain O2 saturation in the 90s. He's been afebrile. Hemodynamically stable. So far he is diuresed 1300 ML's. Weight 127 kg. On 10/19/2021 patient seen in follow-up on medical surgical floor, this morning his breathing was significantly labored, rapid response team was called, and patient was placed on BiPAP support with pressures of 12 and 5 and FiO2 100%. He continues on IV diuretics, he is currently on Lasix 40 mg every 12 hours, he is diuresing quite extensively, and he is currently in negative 5.3 L net fluid balance over the last 24 hours, lung sounds reveal diffuse crackles and diminished breath sounds, with slightly better aeration at the left lung. Bose catheter is in, and draining large amount of clear yellow urine, patient is aw jemal and alert, he is tolerating BiPAP support quite well, his been afebrile, no complaints of chest pain, his chest x-ray today shows stable bilateral infiltrates and pleural effusion. His pro calcitonin level was negative his antibiotics were discontinued, steroids have been discontinued, patient has been started on nebulized treatments. BMP results have been reviewed showing sodium of 143, potassium is 4.3, chloride is 94, CO2 is 39, BUN of 14, creatinine 0.7. On 10/20/2021 patient seen in follow-up on medical surgical floor. His breathing has significantly improved with diuresis, he is currently off BiPAP support, and on 15 L per high flow nasal cannula, his pulse ox is 94%, breathing very comfortably, lung sounds are diminished, without rales or wheezes, however patient is a shallow breather, he needs encouragement to take deep breaths and cough. No coughing noted, his been afebrile, we added Zosyn for his history of aspiration related to his fast eating habits. However his pro calcitonin level has been negative, but in view of his hypoxia we will cover him with Zosyn empir ically. He is in -3470 mL net fluid balance over the last 24 hours, lower extremity edema is improving, he remains on IV Lasix at 40 mg every 12 hours, he is on DuoNeb nebulized treatments, he is on Pepcid. We'll add Lovenox for DVT prophylaxis, today's labs have been reviewed showing white blood cell count of 9.2, hemoglobin of 16.2, sodium is 140, potassium is 4.1, chloride is 89, CO2 is 38, BUN of 13, creatinine 0.8. No nausea or vomiting, no diarrhea. He is feeling hungry, he would like to eat On 10/22/2021 patient seen in follow-up on medical surgical floor. He is currently on BiPAP of 12 and 500% FiO2, his pulse ox is 95-97%, and his FiO2 will be cut back to 80%, patient has been coming off the BiPAP on 15 L high flow to it however she quickly desaturates, and has to return to BiPAP, otherwise he is breathing comfortably, his lung sounds are diminished, I did not appreciate a ny crackles or wheezing. He remains on IV Lasix 40 mg every 12 hours, And he is in negative 4.6 L net fluid balance over the last 24 hours, lower extremity edema is improving, yesterday chest x-ray showing interval decrease in bilateral airspace and interstitial opacities. On 10/23/2021 patient seen in follow-up on medical surgical floor. Earlier today he was on BiPAP support, with pressures of 12 and 5 and FiO2 of 100%, however he started vomiting, BiPAP was removed, patient was placed on Airvo, he was given a dose of Reglan, rapid response team was called, abdominal x-ray was obtained, showing nonspecific abdomen. he denies any abdominal pain, abdomen is soft, he did have a bowel movement yesterday. Chest x-ray showed patchy perihilar and basilar infiltrates, without significant change. Patient has been extensively diuresed, he is in -2.6 L net fluid balance over the last 24 hours. Resolved volume contraction alkalosis, his CO2 is up to 41, sodium was 135, potassium 3.8, chloride is 86, B1 is 14 creatinine 0.6. Blood gas showed pO2 of 77, pCO2 of 90, pH is 7.35, consistent with chronic hypercapnic respiratory failure. D-dimer was not significantly elevated only 0.82, low stemming Doppler showed no evidence of DVT. No cough, no chest pain, no hemoptysis. The patient is suspected to be aspirating, and she has been on Zosyn for last 48 hours, today's labs show normal white count of 7.1, hemoglobin 16.3 proBNP level was about 265, and this was a significantly improved value from admission which was 2470 On 11/05/2021 patient seen in follow-up on regular medical surgical floor, he sitting up in the recliner, breathing comfortably, lung sounds are clear, diminished at the bases, no rhonchi or wheezing, patient remains on 15 L per high flow nasal cannula, and his pulse ox is ranging between 90-98%, he is tolerating oral intake, no fever or chills, no complaints of chest discomfort, no hemoptysis.his most recent chest x-ray was from 11/02/2021 showing bilateral areas of airspace disease no evident pneumothorax or pleural effusion. he was never able to produce phlegm specimen for culture. His labs have been reviewed, his white blood cell count is within normal limits at 5.6, hemoglobin 17, sodium is 140, potassium is 3.2, chloride is 94, BUN is 9.2, creatinine 0.6, his last pro calcitonin from 11/02/2021 was 0.08. Currently not on any antibiotics, was previously on Zosyn Objective - Vital Signs Vital signs: Vital Signs Temp 98.4 F 11/05/21 04:09 Pulse 76 11/05/21 11:30 Resp 20 11/05/21 04:09 BP 128/73 11/05/21 04:09 Pulse Ox 92 L 11/05/21 08:07 Intake & Output 11/04/21 11/05/21 11/05/21 18:59 06:59 18:59 Output Total 1100 1 Balance -1100 -1 Output: Urine 1100 Stool 1 Other: Voiding Method Indwelling Catheter Indwelling Catheter Indwelling Catheter - Exam GENERAL EXAM: Alert, very pleasant, 45-year-old male with typical features of Down syndrome on currently sitting up in the recliner, currently on 15 L of oxygen and the pulse ox of 90-98%. HEAD: Normocephalic/atraumatic. EYES: Normal reaction of pupils, equal size. Conjunctiva pink, sclera white. NOSE: Clear with pink turbinates. THROAT: No erythema or exudates. NECK: No masses, no JVD, no thyroid enlargement, no adenopathy. CHEST: No chest wall deformity. Symmetrical expansion. LUNGS: Equal air entry with diminished breath sounds , no crackles or wheezes CVS: Regular rate and rhythm, normal S1 and S2, no gallops, no murmurs, no rubs ABDOMEN: Soft, nontender. No hepatosplenomegaly, normal bowel sounds, no gua rding or rigidity. EXTREMITIES: No clubbing, no lower extremity edema no cyanosis, 2+ pulses and upper and lower extremities. MUSCULOSKELETAL: Muscle strength and tone normal. SPINE: No scoliosis or deformity SKIN: No rashes CENTRAL NERVOUS SYSTEM: Alert and oriented -3. No focal deficits, tone is normal in all 4 extremities. PSYCHIATRIC: Alert and oriented -3. Appropriate affect. Intact judgment and insight. - Labs CBC & Chem 7: 11/05/21 07:02 11/05/21 07:02 Labs: Abnormal Lab Results - Last 24 Hours (Table) 11/05/21 11/05/21 Range/Units 07:02 07:02 RBC 6.14 H (4.30-5.90) m/uL Hct 58.0 H* (39.0-53.0) % MCHC 29.3 L (31.0-37.0) g/dL RDW 18.5 H (11.5-15.5) % Potassium 3.2 L (3.5-5.5) mmol/L Chloride 94 L (96-109) mmol/L Carbon Dioxide 36.8 H (20.0-27.5) mmol/L Anion Gap 9.80 L (10.00-18.00) mmol/L Glucose 164 H (70-110) mg/dL Assessment and Plan Plan: Assessment: #1. Acute hypoxic respiratory failure related to acute exacerbation of diastolic CHF, suspected aspiration pneumonia and possible acute lung injury/ARDS. COVID-19 PCR was negative. Pro-calcitonin level was negative however patient does have history of aspiration pneumonia, completed Zosyn #2. Dyspnea, and hypoxia, patient required BiPAP, then high flow oxygen per Airvo, and ICU admission. However did not require intubation, clinically he was improving in response to antibiotics, diuretics and steroids, currently down to 15 L per high flow nasal cannula #3. Suspect aspiration pneumonitis, with hypoxic respiratory failure, completed Zosyn. #4. Possible acute lung injury/ARDS related to suspected aspiration, patient has been sufficiently diuresed, and completed Zosyn and steroids #5. History of Down syndrome #6. History of hyperlipidemia #5. History of obstructive sleep apnea, intolerant to CPAP #6. Obesity hypoventilation syndrome #7. Morbid obesity with BMI 48 kg/m #8. Mildly elevated d-dimer, lower extremity Dopplers were negative for DVT, underlying pulmonary embolism is not completely excluded, however patient is not able to travel to computed tomography scan related to high flow oxygen. We'll cover the patient with Lovenox 60 mg twice daily Plan: Provided incentive spirometer Patient remains on high flow oxygen at 15 L Weaning FiO2 to maintain O2 saturations at 80% and above Breathing comfortably No fever or chills We'll switch his IV Lasix to oral Lasix 40 mg daily Follow-up chest x-ray in the morning Follow pro-calcitonin, proBNP level, Continue GI and DVT prophylaxis Patient has completed Zosyn, steroids have been discontinued He is tolerating regular diet We'll continue to follow I performed a history & physical examination of the patient and discussed their management with my nurse practitioner, Keyanna Corcoran. I reviewed the nurse practitioner's note and agree with the documented findings and plan of care. Lung sounds are positive for diffuse crackles throughout the lung colon. The findings and the impression was discussed with the patient. I attest to the doc umentation by the nurse practitioner. Time with Patient: Less than 30
--- NOTE | 2021-11-05 19:46 | P.PN ---
Subjective Progress Note Date: 11/04/21 Principal diagnosis: Acute hypoxemic respiratory failure Aspiration pneumonia Diastolic CHF Hypoventilation syndrome 45-year-old gentleman with a known history of Down syndrome, hyperlipidemia, obstructive sleep apnea but intolerant to CPAP, gastroesophageal reflux disease. He has a poor historian. He was brought into the emergency room yesterday af ter his family found him to be short of breath with cough and swelling of the lower extremities. He is quite hypoxic on arrival by EMS and was placed on nonrebreather mass. His x-ray reveals evidence of cardiomegaly with diffuse interstitial edema and basilar infiltrates. EKG reveals normal sinus rhythm without acute ST or T wave abnormalities. White count 6.9. Hemoglobin 17.1. Sodium 134. Creatinine 0.65. Lactic acid 1.5. AST 93. ALT 70. ProBNP 2470. Troponin 0.025. Chavira virus by PCR not detected. He was initiated on IV diuretics, antibiotics, bronchodilators and steroids. He is seen today in consultation in the emergency department. He is currently sitting up in a stretcher. Awake and alert in no acute distress. He is requiring 15 L high flow nasal cannula to maintain O2 saturation in the 90s. He's been afebrile. Hemodynamically stable. So far he is diuresed 1300 ML's. Weight 127 kg. 11/03/2021 Patient is seen and evaluated in follow-up with family members present and room. He is currently sitting up in a chair at the bedside. Awake and alert in no acute distress. Very interactive today. He is still requiring AirVo high flow oxygen at 45 L and 50% FiO2. Respiratory continues to work to titrate it down. He remains on DuoNeb inhalations 4 times a day. White count 5.8. Hemoglobin 17.5. Sodium 136. Potassium 3.4. Chloride 91. Bicarb 34. Creatinine 0.6. Pro-calcitonin 0.08. Pulmonary service on board and recommending to continue off antibiotics, decrease diuretics to a daily dosing; respiratory we'll continue to titrate FiO2 down as able 11/04/2021 Patient is seen and evaluated in follow-up in room at bedside. He was found sitting up in the chair at the bedside without his oxygen on. His O2 saturation was at 59% on room air. He recovered nicely up into the low 90s on the 15 L h igh flow Vital signs are reviewed and reveal temperature of 98.8, pulse 80, respiration 20 and blood pressure of 108/72. The patient does have Down syndrome. Patient continues to remove oxygen and then desaturates; needs closer supervision. Patient remains on DuoNeb inhalations. IV diuretics. Lovenox for DVT prophylaxis; aspiration precautions. Objective - Vital Signs Vital signs: Vital Signs Temp 98.8 F 11/04/21 04:06 Pulse 80 11/04/21 11:35 Resp 20 11/04/21 04:06 BP 108/72 11/04/21 04:06 Pulse Ox 100 11/04/21 04:06 Intake & Output 11/03/21 11/04/21 11/04/21 18:59 06:59 18:59 Output Total 1 400 Balance -1 -400 Output: Urine 400 Stool 1 Other: Voiding Method Indwelling Catheter Indwelling Catheter Indwelling Catheter - Exam GENERAL: The patient is alert and oriented x1 is his baseline, appears in mild respiratory distress at the time of my examination. Well developed, well nourished. on BiPAP. HEENT: Pupils are round and equally reacting to light. EOMI. No scleral icterus. No conjunctival pallor. Normocephalic, atraumatic. No pharyngeal erythema. No thyromegaly. CARDIOVASCULAR: S1 and S2 present. No murmurs, rubs, or gallops. PULMONARY: Breath sounds crackles in the bases ABDOMEN: Soft, nontender, nondistended, normoactive bowel sounds. No palpable organomegaly. Obese abdomen MUSCULOSKELETAL: No joint swelling or deformity. EXTREMITIES: No cyanosis, clubbing, Bilateral lower extremity swelling improved NEUROLOGICAL: Gross neurological examination did not reveal any focal deficits. Pt is lethargic, difficult to obtain a focused neuro exam. SKIN: No rashes. - Labs CBC & Chem 7: 11/05/21 07:02 11/05/21 07:02 Assessment and Plan Assessment: -Acute hypoxic and hypercapnic respiratory failure secondary to aspiration pneumonia, and obesity hypoventilation syndrome, and acute diastolic congestive heart failure. -New-onset the congestive heart failure is to have diastolic dysfunction had a normal ejection fraction. -Obesity hypoventilation syndrome -History of obstructive sleep apnea; does not tolerate CPAP. -Down syndrome -Gastroesophageal reflux disease -Nausea, vomiting possible due to respiratory alkalosis due to acute hypoxic respiratory failure -Possible aspiration pneumonia secondary to above DVT prophylaxis: Lovenox GI: Prophylaxis: Pepcid FULL CODE Plan Monitor oxygen saturation closely. Requiring high flow oxygen Continue on IV antibiotics Continue bronchodilators Continue all other supporitve care Repeat labs in AM
--- NOTE | 2021-11-05 19:47 | P.PN ---
Subjective Progress Note Date: 11/05/21 Principal diagnosis: Acute hypoxemic respiratory failure Aspiration pneumonia Diastolic CHF Hypoventilation syndrome 45-year-old gentleman with a known history of Down syndrome, hyperlipidemia, obstructive sleep apnea but intolerant to CPAP, gastroesophageal reflux disease. He has a poor historian. He was brought into the emergency room yesterday af ter his family found him to be short of breath with cough and swelling of the lower extremities. He is quite hypoxic on arrival by EMS and was placed on nonrebreather mass. His x-ray reveals evidence of cardiomegaly with diffuse interstitial edema and basilar infiltrates. EKG reveals normal sinus rhythm without acute ST or T wave abnormalities. White count 6.9. Hemoglobin 17.1. Sodium 134. Creatinine 0.65. Lactic acid 1.5. AST 93. ALT 70. ProBNP 2470. Troponin 0.025. Chavira virus by PCR not detected. He was initiated on IV diuretics, antibiotics, bronchodilators and steroids. He is seen today in consultation in the emergency department. He is currently sitting up in a stretcher. Awake and alert in no acute distress. He is requiring 15 L high flow nasal cannula to maintain O2 saturation in the 90s. He's been afebrile. Hemodynamically stable. So far he is diuresed 1300 ML's. Weight 127 kg. 11/03/2021 Patient is seen and evaluated in follow-up with family members present and room. He is currently sitting up in a chair at the bedside. Awake and alert in no acute distress. Very interactive today. He is still requiring AirVo high flow oxygen at 45 L and 50% FiO2. Respiratory continues to work to titrate it down. He remains on DuoNeb inhalations 4 times a day. White count 5.8. Hemoglobin 17.5. Sodium 136. Potassium 3.4. Chloride 91. Bicarb 34. Creatinine 0.6. Pro-calcitonin 0.08. Pulmonary service on board and recommending to continue off antibiotics, decrease diuretics to a daily dosing; respiratory we'll continue to titrate FiO2 down as able 11/04/2021 Patient is seen and evaluated in follow-up in room at bedside. He was found sitting up in the chair at the bedside without his oxygen on. His O2 saturation was at 59% on room air. He recovered nicely up into the low 90s on the 15 L h igh flow Vital signs are reviewed and reveal temperature of 98.8, pulse 80, respiration 20 and blood pressure of 108/72. The patient does have Down syndrome. Patient continues to remove oxygen and then desaturates; needs closer supervision. Patient remains on DuoNeb inhalations. IV diuretics. Lovenox for DVT prophylaxis; aspiration precautions. 11/05/2021 Patient is seen and evaluated in follow-up on regular medical surgical floor, he sitting up in the recliner, breathing comfortably -- patient remains on 15 L per high flow nasal cannula, and his pulse ox is r anging between 90-98%, Most recent chest x-ray was from 11/02/2021 showing bilateral areas of airspace disease no evident pneumothorax or pleural effusion. he was never able to produce phlegm specimen for culture Labs review shows white blood cell count is within normal limits at 5.6, hemoglobin 17, sodium is 140, potassium is 3.2, chloride is 94, BUN is 9.2, creatinine 0.6, his last pro calcitonin from 11/02/2021 was 0.08. Currently not on any antibiotics, was previously on Zosyn Objective - Vital Signs Vital signs: Vital Signs Temp 98.4 F 11/05/21 04:09 Pulse 76 11/05/21 11:30 Resp 20 11/05/21 04:09 BP 128/73 11/05/21 04:09 Pulse Ox 92 L 11/05/21 08:07 Intake & Output 11/04/21 11/05/21 11/05/21 18:59 06:59 18:59 Output Total 1100 1 Balance -1100 -1 Output: Urine 1100 Stool 1 Other: Voiding Method Indwelling Catheter Indwelling Catheter Indwelling Catheter - Exam GENERAL: The patient is alert and oriented x1 is his baseline, appears in mild respiratory distress at the time of my examination. Well developed, well nouris hed. on BiPAP. HEENT: Pupils are round and equally reacting to light. EOMI. No scleral icterus. No conjunctival pallor. Normocephalic, atraumatic. No pharyngeal erythema. No thyromegaly. CARDIOVASCULAR: S1 and S2 present. No murmurs, rubs, or gallops. PULMONARY: Breath sounds crackles in the bases ABDOMEN: Soft, nontender, nondistended, normoactive bowel sounds. No palpable organomegaly. Obese abdomen MUSCULOSKELETAL: No joint swelling or deformity. EXTREMITIES: No cyanosis, clubbing, Bilateral lower extremity swelling improved NEUROLOGICAL: Gross neurological examination did not reveal any focal deficits. Pt is lethargic, difficult to obtain a focused neuro exam. SKIN: No rashes. - Labs CBC & Chem 7: 11/05/21 07:02 11/05/21 07:02 Labs: Abnormal Lab Results - Last 24 Hours (Table) 11/05/21 11/05/21 Range/Units 07:02 07:02 RBC 6.14 H (4.30-5.90) m/uL Hct 58.0 H* (39.0-53.0) % MCHC 29.3 L (31.0-37.0) g/dL RDW 18.5 H (11.5-15.5) % Potassium 3.2 L (3.5-5.5) mmol/L Chloride 94 L (96-109) mmol/L Carbon Dioxide 36.8 H (20.0-27.5) mmol/L Anion Gap 9.80 L (10.00-18.00) mmol/L Glucose 164 H (70-110) mg/dL Assessment and Plan Assessment: -Acute hypoxic and hypercapnic respiratory failure secondary to aspiration pneumonia, and obesity hypoventilation syndrome, and acute diastolic congestive heart failure. -New-onset the congestive heart failure is to have diastolic dysfunction had a normal ejection fraction. -Obesity hypoventilation syndrome -History of obstructive sleep apnea; does not tolerate CPAP. -Down syndrome -Gastroesophageal reflux disease -Nausea, vomiting possible due to respiratory alkalosis due to acute hypoxic respiratory failure -Possible aspiration pneumonia secondary to above DVT prophylaxis: Lovenox GI: Prophylaxis: Pepcid FULL CODE Plan Monitor oxygen saturation closely. Requiring high flow oxygen Continue on IV antibiotics Continue bronchodilators Continue all other supporitve care Repeat labs in AM
[2021-11-06] MEDS: ATORVASTATIN 40 MG TAB PO SCH (08:06)
[2021-11-06] MEDS: FAMOTIDINE 20 MG/2 ML VIAL IV SCH ×2 (08:06→19:35)
[2021-11-06] MEDS: ENOXAPARIN 60 MG/0.6 ML SYRINGE SQ SCH (08:06)
[2021-11-06] MEDS: POTASSIUM CHLORIDE ER 20 MEQ TAB.ER PO SCH (08:06)
[2021-11-06] MEDS: IPRATROPIUM-ALBUTEROL 3 ML NEB INHALATION SCH ×4 (08:20→20:15)
[2021-11-06] MEDS ORDERED: FUROSEMIDE 40 MG TAB PO SCH (09:00)
--- NOTE | 2021-11-06 09:28 | XR ---
EXAMINATION TYPE: XR chest 1V portable DATE OF EXAM: 11/06/2021 COMPARISON: Chest x-ray 11/02/2021 HISTORY: Pneumonia TECHNIQUE: Single frontal view of the chest is obtained. FINDINGS: Right-sided PICC line is again noted. No evident pneumothorax. Patchy densities present in the bilateral lungs. Lung volumes are low. Cardiac mediastinal silhouette is stable. No evident effu page. IMPRESSION: Correlate for pneumonia, atelectasis, follow-up suggested. Expiratory exam.
[2021-11-06 11:55] LABS: Anisocytosis Slight; Basophils # (A) 0.1 k/uL (0-0.2); Basophils % (A) 1 %; Eosinophils # (A) 0.1 k/uL (0-0.7); Eosinophils % (A) 2 %; HGB 16.9 gm/dL (13.0-17.5); Hypochromasia Marked; Lymphocytes # (A) 1.4 k/uL (1.0-4.8); Lymphocytes % (A) 22 %; MCH 27.8 pg (25.0-35.0); MCHC 29.2 g/dL (31.0-37.0); MCV 95.3 fL (80.0-100.0); Macrocytosis Slight; Mean Platelet Volume 9.4; Monocytes # (A) 0.4 k/uL (0-1.0); Monocytes % (A) 7 %; Neutrophils # (A) 4.1 k/uL (1.3-7.7); Neutrophils % (A) 65 %; Platelet Count 168 k/uL (150-450); RBC 6.07 m/uL (4.30-5.90); RDW 18.4 % (11.5-15.5); WBC 6.3 k/uL (3.8-10.6)
[2021-11-06 11:58] LABS: HCT 57.9 % (39.0-53.0)
[2021-11-06 12:15] LABS: ALT 35 U/L (4-49); AST 33 U/L (17-59); African American GFR (CKD) >90 (>60 ml/min/1.73 sqM); Albumin 3.1 g/dL (3.5-5.0); Albumin/Globulin Ratio 0.9; Alkaline Phosphatase 76 U/L (38-126); Anion Gap 4 mmol/L; Blood Urea Nitrogen 9 mg/dL (9-20); Calcium 8.4 mg/dL (8.4-10.2); Carbon Dioxide 35 mmol/L (22-30); Chloride 97 mmol/L (98-107); Globulin 3.6 g/dL; Glucose 182 mg/dL (74-99); Non-African American GFR(CKD) >90 (>60 ml/min/1.73 sqM); Potassium 3.8 mmol/L (3.5-5.1); Sodium 136 mmol/L (137-145); Total Bilirubin 0.6 mg/dL (0.2-1.3); Total Protein 6.7 g/dL (6.3-8.2)
--- NOTE | 2021-11-06 15:56 | P.PN ---
Subjective Progress Note Date: 11/06/21 This is a pleasant 45-year-old gentleman with a known history of Down syndrome, hyperlipidemia, obstructive sleep apnea but intolerant to CPAP, gastroesophageal reflux disease. He has a poor historian. He was brought into the emergency room yesterday after his family found him to be short of breath with cough and swelling of the lower extremities. He is quite hypoxic on arrival by EMS and was placed on nonrebreather mass. His x-ray reveals evidence of cardiomegaly with diffuse interstitial edema and basilar infiltrates. EKG reveals normal sinus rhythm without acute ST or T wave abnormalities. White count 6.9. Hemoglobin 17.1. Sodium 134. Creatinine 0.65. Lactic acid 1.5. AST 93. ALT 70. ProBNP 2470. Troponin 0.025. Chavira virus by PCR not detected. He was initiated on IV diuretics, antibiotics, bronchodilators and steroids. He is seen today in consultation in the emergency department. He is currently sitting up in a stretcher. Awake and alert in no acute distress. He is requiring 15 L high flow nasal cannula to maintain O2 saturation in the 90s. He's been afebrile. Hemodynamically stable. So far he is diuresed 1300 ML's. Weight 127 kg. On 10/19/2021 patient seen in follow-up on medical surgical floor, this morning his breathing was significantly labored, rapid response team was called, and patient was placed on BiPAP support with pressures of 12 and 5 and FiO2 100%. He continues on IV diuretics, he is currently on Lasix 40 mg every 12 hours, he is diuresing quite extensively, and he is currently in negative 5.3 L net fluid balance over the last 24 hours, lung sounds reveal diffuse crackles and diminished breath sounds, with slightly better aeration at the left lung. Bose catheter is in, and draining large amount of clear yellow urine, patient is aw jemal and alert, he is tolerating BiPAP support quite well, his been afebrile, no complaints of chest pain, his chest x-ray today shows stable bilateral infiltrates and pleural effusion. His pro calcitonin level was negative his antibiotics were discontinued, steroids have been discontinued, patient has been started on nebulized treatments. BMP results have been reviewed showing sodium of 143, potassium is 4.3, chloride is 94, CO2 is 39, BUN of 14, creatinine 0.7. On 10/20/2021 patient seen in follow-up on medical surgical floor. His breathing has significantly improved with diuresis, he is currently off BiPAP support, and on 15 L per high flow nasal cannula, his pulse ox is 94%, breathing very comfortably, lung sounds are diminished, without rales or wheezes, however patient is a shallow breather, he needs encouragement to take deep breaths and cough. No coughing noted, his been afebrile, we added Zosyn for his history of aspiration related to his fast eating habits. However his pro calcitonin level has been negative, but in view of his hypoxia we will cover him with Zosyn empir ically. He is in -3470 mL net fluid balance over the last 24 hours, lower extremity edema is improving, he remains on IV Lasix at 40 mg every 12 hours, he is on DuoNeb nebulized treatments, he is on Pepcid. We'll add Lovenox for DVT prophylaxis, today's labs have been reviewed showing white blood cell count of 9.2, hemoglobin of 16.2, sodium is 140, potassium is 4.1, chloride is 89, CO2 is 38, BUN of 13, creatinine 0.8. No nausea or vomiting, no diarrhea. He is feeling hungry, he would like to eat On 10/22/2021 patient seen in follow-up on medical surgical floor. He is currently on BiPAP of 12 and 500% FiO2, his pulse ox is 95-97%, and his FiO2 will be cut back to 80%, patient has been coming off the BiPAP on 15 L high flow to it however she quickly desaturates, and has to return to BiPAP, otherwise he is breathing comfortably, his lung sounds are diminished, I did not appreciate a ny crackles or wheezing. He remains on IV Lasix 40 mg every 12 hours, And he is in negative 4.6 L net fluid balance over the last 24 hours, lower extremity edema is improving, yesterday chest x-ray showing interval decrease in bilateral airspace and interstitial opacities. On 10/23/2021 patient seen in follow-up on medical surgical floor. Earlier today he was on BiPAP support, with pressures of 12 and 5 and FiO2 of 100%, however he started vomiting, BiPAP was removed, patient was placed on Airvo, he was given a dose of Reglan, rapid response team was called, abdominal x-ray was obtained, showing nonspecific abdomen. he denies any abdominal pain, abdomen is soft, he did have a bowel movement yesterday. Chest x-ray showed patchy perihilar and basilar infiltrates, without significant change. Patient has been extensively diuresed, he is in -2.6 L net fluid balance over the last 24 hours. Resolved volume contraction alkalosis, his CO2 is up to 41, sodium was 135, potassium 3.8, chloride is 86, B1 is 14 creatinine 0.6. Blood gas showed pO2 of 77, pCO2 of 90, pH is 7.35, consistent with chronic hypercapnic respiratory failure. D-dimer was not significantly elevated only 0.82, low stemming Doppler showed no evidence of DVT. No cough, no chest pain, no hemoptysis. The patient is suspected to be aspirating, and she has been on Zosyn for last 48 hours, today's labs show normal white count of 7.1, hemoglobin 16.3 proBNP level was about 265, and this was a significantly improved value from admission which was 2470 On 11/05/2021 patient seen in follow-up on regular medical surgical floor, he sitting up in the recliner, breathing comfortably, lung sounds are clear, diminished at the bases, no rhonchi or wheezing, patient remains on 15 L per high flow nasal cannula, and his pulse ox is ranging between 90-98%, he is tolerating oral intake, no fever or chills, no complaints of chest discomfort, no hemoptysis.his most recent chest x-ray was from 11/02/2021 showing bilateral areas of airspace disease no evident pneumothorax or pleural effusion. he was never able to produce phlegm specimen for culture. His labs have been reviewed, his white blood cell count is within normal limits at 5.6, hemoglobin 17, sodium is 140, potassium is 3.2, chloride is 94, BUN is 9.2, creatinine 0.6, his last pro calcitonin from 11/02/2021 was 0.08. Currently not on any antibiotics, was previously on Zosyn On 11/06/2021 patient seen in follow-up on medical surgical floor, he sitting up the recliner, in no acute distress, breathing quite comfortably, however still remains on high flow oxygen at 15 L, denies any chest pain, no cough, lung sounds reveal diminished breath sounds with some minimal crackles, no rhonchi or wheezing, no phlegm production, vital signs have been stable his pulse ox is 93%, vital signs have been stable, no fever or chills, patient has completed his antibiotic course. He is currently off antibiotics, he was previously on Zosyn, he continues on oral dose of Lasix 40 mg once daily, his lower extremity edema and generalized edema have significantly improved. Today's labs have been reviewed, white blood cell count is 6.3, hemoglobin is 16.9, electrolytes are fairly unremarkable with sodium of 136, potassium 3.8, chloride is 97, CO2 35, BUN is 9, creatinine 0.59, his proBNP was within normal limits at 64, and his pro calcitonin level was repeated on yesterday's labs and was again negative at 0.07. Follow-up chest x-ray today shows patchy densities in the bilateral lungs, low lung volumes. Objective - Vital Signs Vital signs: Vital Signs Temp 98.3 F 11/06/21 12:53 Pulse 75 11/06/21 12:53 Resp 20 11/06/21 12:53 BP 110/62 11/06/21 12:53 Pulse Ox 93 L 11/06/21 12:53 Intake & Output 11/05/21 11/06/21 11/06/21 18:59 06:59 18:59 Intake Total 222 Output Total 1 1502 Balance -1 -1502 222 Intake: Oral 222 Output: Urine 1500 Stool 1 2 Other: Voiding Method Indwelling Catheter Indwelling Catheter - Exam GENERAL EXAM: Alert, very pleasant, 45-year-old male with typical features of Down syndrome on currently sitting up in the recliner, currently on 15 L of oxygen and the pulse ox of 90-98%. HEAD: Normocephalic/atraumatic. EYES: Normal reaction of pupils, equal size. Conjunctiva pink, sclera white. NOSE: Clear with pink turbinates. THROAT: No erythema or exudates. NECK: No masses, no JVD, no thyroid enlargement, no adenopathy. CHEST: No chest wall deformity. Symmetrical expansion. LUNGS: Equal air entry with diminished breath sounds , no crackles or wheezes CVS: Regular rate and rhythm, normal S1 and S2, no gallops, no murmurs, no rubs ABDOMEN: Soft, nontender. No hepatosplenomegaly, normal bowel sounds, no guarding or rigidity. EXTREMITIES: No clubbing, no lower extremity edema no cyanosis, 2+ pulses and upper and lower extremities. MUSCULOSKELETAL: Muscle strength and tone normal. SPINE: No scoliosis or deformity SKIN: No rashes CENTRAL NERVOUS SYSTEM: Alert and oriented -3. No focal deficits, tone is normal in all 4 extremities. PSYCHIATRIC: Alert and oriented -3. Appropriate affect. Intact judgment and insight. - Labs CBC & Chem 7: 11/06/21 11:44 11/06/21 11:44 Labs: Abnormal Lab Results - Last 24 Hours (Table) 11/06/21 11/06/21 Range/Units 11:44 11:44 RBC 6.07 H (4.30-5.90) m/uL Hct 57.9 H* (39.0-53.0) % MCHC 29.2 L (31.0-37.0) g/dL RDW 18.4 H (11.5-15.5) % Sodium 136 L (137-145) mmol/L Chloride 97 L (98-107) mmol/L Carbon Dioxide 35 H (22-30) mmol/L Creatinine 0.59 L (0.66-1.25) mg/dL Glucose 182 H (74-99) mg/dL Albumin 3.1 L (3.5-5.0) g/dL Assessment and Plan Plan: Assessment: #1. Acute hypoxic respiratory failure related to acute exacerbation of diastolic CHF, suspected aspiration pneumonia and possible acute lung injury/ARDS. COVID-19 PCR was negative. Pro-calcitonin level was negative however patient does have history of aspiration pneumonia, completed Zosyn #2. Dyspnea, and hypoxia, patient required BiPAP, then high flow oxygen per Airvo, and ICU admission. However did not require intubation, clinically he was improving in response to antibiotics, diuretics and steroids, currently down to 15 L per high flow nasal cannula #3. Suspect aspiration pneumonitis, with hypoxic respiratory failure, completed Zosyn. #4. Possible acute lung injury/ARDS related to suspected aspiration, patient has been sufficiently diuresed, and completed Zosyn and steroids #5. History of Down syndrome #6. History of hyperlipidemia #5. History of obstructive sleep apnea, intolerant to CPAP #6. Obesity hypoventilation syndrome #7. Morbid obesity with BMI 48 kg/m #8. Mildly elevated d-dimer, lower extremity Dopplers were negative for DVT, underlying pulmonary embolism is not completely excluded, however patient is not able to travel to computed tomography scan related to high flow oxygen. We'll cover the patient with Lovenox 60 mg twice daily Plan: Today's chest x-ray has been reviewed Still showing bibasilar patchy densities Patient continues to require high flow oxygen We will obtain CT of the chest without contrast We'll keep oral dose Lasix Continue DuoNeb Continue with aspiration precautions We'll continue to follow his clinical course I performed a history & physical examination of the patient and discussed their management with my nurse practitioner, Keyanna Corcoran. I reviewed the nurse pra ctitioner's note and agree with the documented findings and plan of care. Lung sounds are positive for diffuse crackles throughout the lung colon. The findings and the impression was discussed with the patient. I attest to the documentation by the nurse practitioner. Time with Patient: Less than 30
--- NOTE | 2021-11-06 17:00 | CT ---
EXAMINATION TYPE: CT chest wo con DATE OF EXAM: 11/06/2021 COMPARISON: Same-day radiograph and prior. HISTORY: pneumonia CT DLP: 791 mGycm. Automated Exposure Control for Dose Reduction was Utilized. TECHNIQUE: CT scan of the thorax is performed without IV contrast. FINDINGS: LUNGS: There are bilateral diffuse mild to moderate patchy opacities, greater on the right. There is no pleural effusion or pneumothorax seen. The tracheobronchial tree is patent. MEDIASTINUM: Lack of IV contrast is noted to limit evaluation for mediastinal and especially hilar ad enopathy. There are no definitive greater than 1 cm hilar or mediastinal lymph nodes. No cardiomega ly or pericardial effusion is seen. OTHER: No additional significant abnormality is seen. There is a right PICC in place. IMPRESSION: Mild to moderate diffuse patchy opacities, consistent with multifocal pneumonia in the appropriate cl inical setting.
[2021-11-06] MEDS: FUROSEMIDE 10 MG/ML 4 ML VIAL IV SCH ×2 (19:36→23:38)
[2021-11-06] MEDS: SODIUM CHLORIDE 0.9% 500 ML 500 ML IV SCH (21:34)
--- NOTE | 2021-11-06 22:04 | PN ---
PROGRESS NOTE DATE OF SERVICE: 11/06/2021 This 45-year-old gentleman with respiratory failure has got aspiration pneumonia. However, Procalcitonin is normal. Anti- proBNP is also within normal limits. The patient appears to have some fluid overload at this time. The patient also had acute hypoxic respiratory failure. There is also possible obesity inflammation syndrome as well. PAST MEDICAL HISTORY: Reviewed. REVIEW OF SYMPTOMS: Could not be taken. CURRENT MEDICATIONS: Reviewed and include: Tylenol, [place], DuoNeb, Lipitor, Lovenox, doses and other medications reviewed. PHYSICAL EXAMINATION: Pulse is 75. Blood pressure 110/60. Respiratory rate 20. Temperature 98.3. Pulse ox 93% on 15 L oxygen. HEENT is conjunctivae normal. Neck: No JVD. Cardiovascular: S1, S2 normal. Respiratory: Breath sounds diminished in the bases. Scattered rhonchi and crackles. Expiratory wheezing also. Abdomen: Soft, obese, nontender. Legs: No edema. No swelling. Nervous system: No focal deficits. LABS: WBC 6.7, hemoglobin 16.9, hematocrit 52.9, sodium 134, potassium 3.8. ASSESSMENT: 1. Shortness of breath, possibly multifactorial with some fluid overload with congestive heart failure acute exacerbation, acute on chronic diastolic dysfunction, aspiration pneumonia and as well as obesity hypoventilation syndrome. 2. Acute hypoxic respiratory failure. 3. History of obstructive sleep apnea, does not tolerate CPAP. 4. Down's syndrome. 5. Gastroesophageal reflux disease. 6. Nausea, vomiting, possible respiratory alkalosis. 7. History of aspiration pneumonia. 8. Polycythemia. 9. Hypokalemia. 10.Hyponatremia. 11.Obesity with body mass of 43.5. 12.FULL CODE. RECOMMENDATIONS AND DISCUSSION: This 45-year-old gentleman who presented with multiple complex medical issues, we will monitor the patient closely. Continue the current medications, symptomatic treatment. We will limit the fluids at this time. I would also recommend intravenous IV diuretics and guarded prognosis because of multiple complex medical issues. Further recommendations to follow. Bronchodilators are also being initiated. If the patient does not improve empirically, a short course of intravenous steroids may be attempted. We will continue to monitor. The patient has got complex shortness of breath, most likely it is multifactorial at this time. MMODL / IJN: [id number] /
[2021-11-07 06:54] LABS: Anisocytosis Slight; Basophils # (A) 0.1 k/uL (0-0.2); Basophils % (A) 1 %; Eosinophils # (A) 0.2 k/uL (0-0.7); Eosinophils % (A) 2 %; HGB 16.4 gm/dL (13.0-17.5); Hypochromasia Marked; Lymphocytes # (A) 1.7 k/uL (1.0-4.8); Lymphocytes % (A) 22 %; MCH 28.2 pg (25.0-35.0); MCHC 29.8 g/dL (31.0-37.0); MCV 94.8 fL (80.0-100.0); Mean Platelet Volume 9.3; Monocytes # (A) 0.5 k/uL (0-1.0); Monocytes % (A) 7 %; Neutrophils # (A) 4.9 k/uL (1.3-7.7); Neutrophils % (A) 64 %; Platelet Count 167 k/uL (150-450); RBC 5.82 m/uL (4.30-5.90); RDW 18.4 % (11.5-15.5); WBC 7.7 k/uL (3.8-10.6)
[2021-11-07 07:18] LABS: HCT 55.2 % (39.0-53.0)
[2021-11-07] MEDS: FAMOTIDINE 20 MG/2 ML VIAL IV SCH ×2 (07:39→21:25)
[2021-11-07] MEDS: ATORVASTATIN 40 MG TAB PO SCH (07:40)
[2021-11-07] MEDS: ENOXAPARIN 60 MG/0.6 ML SYRINGE SQ SCH (07:40)
[2021-11-07] MEDS: POTASSIUM CHLORIDE ER 20 MEQ TAB.ER PO SCH (07:40)
[2021-11-07] MEDS: FUROSEMIDE 10 MG/ML 4 ML VIAL IV SCH ×2 (07:40→21:26)
[2021-11-07] MEDS: IPRATROPIUM-ALBUTEROL 3 ML NEB INHALATION SCH ×4 (08:36→19:31)
[2021-11-07 09:24] LABS: African American GFR (CKD) 138.8 (60.0-200.0); Anion Gap 11.8 mmol/L (10.00-18.00); BUN/Creat Ratio 13.5 Ratio (12.00-20.00); Blood Urea Nitrogen 8.1 mg/dL (9.0-27.0); Calcium 8.5 mg/dL (8.7-10.3); Carbon Dioxide 32.2 mmol/L (20.0-27.5); Non-African American GFR(CKD) 119.7 (60.0-200.0)
--- NOTE | 2021-11-07 13:11 | P.PN ---
Subjective Progress Note Date: 11/07/21 This is a pleasant 45-year-old gentleman with a known history of Down syndrome, hyperlipidemia, obstructive sleep apnea but intolerant to CPAP, gastroesophageal reflux disease. He has a poor historian. He was brought into the emergency room yesterday after his family found him to be short of breath with cough and swelling of the lower extremities. He is quite hypoxic on arrival by EMS and was placed on nonrebreather mass. His x-ray reveals evidence of cardiomegaly with diffuse interstitial edema and basilar infiltrates. EKG reveals normal sinus rhythm without acute ST or T wave abnormalities. White count 6.9. Hemoglobin 17.1. Sodium 134. Creatinine 0.65. Lactic acid 1.5. AST 93. ALT 70. ProBNP 2470. Troponin 0.025. Chavira virus by PCR not detected. He was initiated on IV diuretics, antibiotics, bronchodilators and steroids. He is seen today in consultation in the emergency department. He is currently sitting up in a stretcher. Awake and alert in no acute distress. He is requiring 15 L high flow nasal cannula to maintain O2 saturation in the 90s. He's been afebrile. Hemodynamically stable. So far he is diuresed 1300 ML's. Weight 127 kg. On 10/19/2021 patient seen in follow-up on medical surgical floor, this morning his breathing was significantly labored, rapid response team was called, and patient was placed on BiPAP support with pressures of 12 and 5 and FiO2 100%. He continues on IV diuretics, he is currently on Lasix 40 mg every 12 hours, he is diuresing quite extensively, and he is currently in negative 5.3 L net fluid balance over the last 24 hours, lung sounds reveal diffuse crackles and diminished breath sounds, with slightly better aeration at the left lung. Bose catheter is in, and draining large amount of clear yellow urine, patient is aw jemal and alert, he is tolerating BiPAP support quite well, his been afebrile, no complaints of chest pain, his chest x-ray today shows stable bilateral infiltrates and pleural effusion. His pro calcitonin level was negative his antibiotics were discontinued, steroids have been discontinued, patient has been started on nebulized treatments. BMP results have been reviewed showing sodium of 143, potassium is 4.3, chloride is 94, CO2 is 39, BUN of 14, creatinine 0.7. On 10/20/2021 patient seen in follow-up on medical surgical floor. His breathing has significantly improved with diuresis, he is currently off BiPAP support, and on 15 L per high flow nasal cannula, his pulse ox is 94%, breathing very comfortably, lung sounds are diminished, without rales or wheezes, however patient is a shallow breather, he needs encouragement to take deep breaths and cough. No coughing noted, his been afebrile, we added Zosyn for his history of aspiration related to his fast eating habits. However his pro calcitonin level has been negative, but in view of his hypoxia we will cover him with Zosyn empir ically. He is in -3470 mL net fluid balance over the last 24 hours, lower extremity edema is improving, he remains on IV Lasix at 40 mg every 12 hours, he is on DuoNeb nebulized treatments, he is on Pepcid. We'll add Lovenox for DVT prophylaxis, today's labs have been reviewed showing white blood cell count of 9.2, hemoglobin of 16.2, sodium is 140, potassium is 4.1, chloride is 89, CO2 is 38, BUN of 13, creatinine 0.8. No nausea or vomiting, no diarrhea. He is feeling hungry, he would like to eat Reevaluated today on 10/21/21, patient is back on BiPAP today. And he is on the percent FiO2 feeling better breathing easier, but had a bit of a setback and requiring more FiO2 to maintain adequate oxygenation. Patient remains on diuretics, remains on antibiotics empirically, furosemide is at 40 mg IV push every 12 hours. Patient is marginal at best. He is not a great historian but he does not seem to be in distress on BiPAP. Labs today showed BNP level of 265, his blood sugar was 180. WBC count is 9.4. On 10/22/2021 patient seen in follow-up on medical surgical floor. He is cu rrently on BiPAP of 12 and 500% FiO2, his pulse ox is 95-97%, and his FiO2 will be cut back to 80%, patient has been coming off the BiPAP on 15 L high flow to it however she quickly desaturates, and has to return to BiPAP, otherwise he is breathing comfortably, his lung sounds are diminished, I did not appreciate any crackles or wheezing. He remains on IV Lasix 40 mg every 12 hours, And he is in negative 4.6 L net fluid balance over the last 24 hours, lower extremity edema is improving, yesterday chest x-ray showing interval decrease in bilateral airspace and interstitial opacities. On 10/23/2021 patient seen in follow-up on medical surgical floor. Earlier today he was on BiPAP support, with pressures of 12 and 5 and FiO2 of 100%, however he started vomiting, BiPAP was removed, patient was placed on Airvo, he was given a dose of Reglan, rapid response team was called, abdominal x-ray was obtained, showing nonspecific abdomen. he denies any abdominal pain, abdomen is soft, he did have a bowel movement yesterday. Chest x-ray showed patchy perihilar and basilar infiltrates, without significant change. Patient has been extensively diuresed, he is in -2.6 L net fluid balance over the last 24 hours. Resolved volume contraction alkalosis, his CO2 is up to 41, sodium was 135, pot assium 3.8, chloride is 86, B1 is 14 creatinine 0.6. Blood gas showed pO2 of 77, pCO2 of 90, pH is 7.35, consistent with chronic hypercapnic respiratory failure. D-dimer was not significantly elevated only 0.82, low stemming Doppler showed no evidence of DVT. No cough, no chest pain, no hemoptysis. The patient is suspected to be aspirating, and she has been on Zosyn for last 48 hours, today's labs show normal white count of 7.1, hemoglobin 16.3 proBNP level was about 265, and this was a significantly improved value from admission which was 2470 Reevaluated today on 10/24/21, patient is now in the ICU, placed back on BiPAP 16/800%, patient was noted to be placed on non-rebreather mask and airvo last night, and the patient is noted to be a bit lethargic but arousable. I recommended immediate placement on BiPAP, and this was done. His CT angiogram of the chest done yesterday and no evidence of pulmonary embolism as expected however it did show bilateral infiltrates, and I'm still suspicious that the patient is developing aspiration pneumonia as he did in the past. Patient does have a chronic history of aspiration pneumonia. WBC count today is 5.5 hemoglobin is 15.8. Normal basic metabolic profile is normal renal profile is normal bicarb is 41. Patient remains on updrafts, is also on Lovenox extremely milligrams twice a day and I will cut it down to 40 mg subcu daily remains on methylprednisolone, and he is also on Zosyn. Reevaluated today on 10/25/21, remains in the ICU, sitting at a bedside chair, remains on BiPAP, he is on 100% FiO2, IPAP of 16 and EPAP of 8, patient seems to be comfortable and he is not in distress. I recommended tapering down his FiO2 however the patient is to stay on BiPAP, and is to stay in the ICU for today. Chest x-ray continues show by basilar airspace disease and atelectasis. CBC is relatively normal, basic metabolic profile is normal bicarb is 39. ABG prior to transferring the patient to the ICU on BiPAP showed a pO2 of 54 pCO2 95 pH of 7.33 and this was 2 days ago. 10/26/2021, the patient is being seen in follow-up in intensive care unit. 45-year-old male patient with known history of Down syndrome, currently on a BiPAP for respiratory support due to palpitations of CHF and possible aspiration. Repeat chest x-ray was done today and it shows again persistent bilateral pulmonary infiltrates in the lower lung colon. Mediastinum is less wide compared to yesterday. There may be some improvement in the volume status. There is no significant cardiomegaly on today's chest x-ray. Meanwhile, the patient's is currently off the BiPAP. He is using Airvo at 60 L with an FiO2 of 90% in addition to 100% nonrebreather facemask and his current pulse ox is in the order of 85%. His current cardiac rhythm is sinus. His fluid balance over the past 24 hours has been +185 mL. The patient however is producing urine outp ut and the urine output is in order of 25-30 mL an hour.. He is currently on IV Zosyn covering him for aspiration pneumonia. He is nothing by mouth for now and the patient is receiving PPN for nutritional support. On today's blood work, his white cell count of 5.6 with a hemoglobin of 17.9, platelets of 185, BUN of 22 with a creatinine of 0.6 and the sodium level is at 138. Meanwhile, his echo cardiogram that was done on 10/18/2021 showed a preserved LV function with an ejection fraction of 50-55%, no significant valvular abnormalities have been noted. The patient pro-calcitonin level and time of admission was 0.09. The patient's proBNP level at the time of admission was 2470 and it dropped down to 265. 10/27/2021, the patient is doing well. As the patient is awake and alert. The patient is off BiPAP and the patient is currently on Airvo 60 L of 5-70%. The patient is also utilizing on and off 100% nonrebreather facemask. The patient was started on a Lasix drip yesterday 5 mg an hour. The patient is also on Zaroxolyn 2.5 mg twice a day. Overall fluid balance is -4.2 L over the past 24 hours. Meanwhile, the patient feels less short of breath. Chest x-ray still showing pulmonary edema and bilateral pleural effusions. There may be some limited improvement in the volume status bilaterally. Clinically the patient is more stable and his breathing is not labored this point in time. In terms of his blood work, the patient's sodium level today is at 132 with a potassium level of 4.1 and serum bicarbonate 38. The blood gas showed a pH of 7.4 with a pCO2 of 73 and pO2 of 63 from yesterday and this was done and FiO2 of 70% while being on Airvo at 60 L. The white cell count today is at 7.5 with hemoglobin of 18 and platelet count of 177. In terms of treatment, the patient is still on Lasix drip and Zaroxolyn. The patient is also on empiric antibiotic coverage w ith IV Zosyn covering for aspiration pneumonia. In terms of his swallow, he is able to swallow. I think it's reasonable to advance his diet and discontinue TPN for now. The patient is seen today 10/28/2021 in follow-up on the regular medical floor. He is currently sitting up in a chair at the bedside. Awake and alert in no acute distress. He remains on AirVo high flow oxygen at 60 L and 75% FiO2. He did not require the BiPAP last night. Sodium 132. Potassium 3.1. Chloride 73. Bicarb 49. BUN 50. Creatinine 0.94. Glucose 146. He is currently on a Lasix drip at 5 mg per hour. He is also on Zaroxolyn. He is in -9 L balance the past 24-48 hours. Weight of 128 kg. He remains on antibiotics in the form of Zosyn. Lovenox for DVT prophylaxis. Continue bronchodilators. The patient is seen today 10/29/2021 in follow-up on the regular medical floor. He is awake and alert in no acute distress. Sitting up in a chair at the bedside. He remains on AirVo high flow oxygen at 60 L and 85% FiO2. He is maintaining O2 saturations in the low 90s. White count 8.1. Hemoglobin 18.6. Sodium 135. Potassium 2.3. Bicarb 38. Glucose 123. Creatinine 0.9. AST 41. ALT 41. He remains on Lovenox, bronchodilators. IV diuretics. Remains in a - 0.9 L balance. Antibiotics in the form of Zosyn. He has not utilized the BiPAP. The patient is seen today 11/01/2021 in follow-up on the regular medical floor. He is awake and alert in no acute distress. His mom is currently with him at the bedside. He is still requiring AirVo high flow oxygen at 50 liters and 70% FiO2 with O2 saturation of 90%. He is continued on DuoNeb inhalations, IV diuretics. Lovenox for DVT prophylaxis. He remains in a -2.3 L balance. Follow-up labs pending. The patient is seen today 11/02/2021 in follow-up on the regular medical floor. He is sitting up in bed. Awake and alert. Continues to require high flow AirVo at 50 L and 70% FiO2. Once the patient's oxygen was titrated down he did drop to 86%. Chest x-ray continues to show bilateral patchy airspace disease. No pneumothorax or pleural effusion. Right-sided PICC line remains in place. White count 7.2. Hemoglobin 17.0. Sodium 139. Potassium 3.2. Creatinine 0.7. AST 25. ALT 76. He is continued on DuoNeb inhalations. The patient seen today 11/03/2021 in follow-up on the regular medical floor. He is currently sitting up in a chair at the bedside. Awake and alert in no acute distress. Very interactive today. He is still requiring AirVo high flow oxygen at 45 L and 50% FiO2. Respiratory continues to work to titrate it down. He remains on DuoNeb inhalations 4 times a day. White count 5.8. Hemoglobin 17.5. Sodium 136. Potassium 3.4. Chloride 91. Bicarb 34. Creatinine 0.6. Pro- calcitonin 0.08. The patient is seen today 11/04/2021 in follow-up on the regular medical floor. He was found sitting up in the chair at the bedside without his oxygen on. His O2 saturation was at 59% on room air. He recovered nicely up into the low 90s on the 15 L high flow nasal cannula that he's been asked to keep on. The patient does have Down syndrome. He needs closer supervision. Sitting staff was notified. No new labs today. He is continued on DuoNeb inhalations. IV diuretics. Lovenox for DVT prophylaxis. The patient is seen today 11/07/2021 in follow-up on the regular medical floor. He is awake and alert. He is sitting up in a chair at the bedside. He is interactive. He is currently on 10 L high flow nasal cannula with O2 saturation at 92%. White count 7.7. Hemoglobin 16.4. Sodium 140. Potassium 4.0. Creatinine 0.6. Glucose 127. He is continued on Lasix 40 mg IV every 8 hours, DuoNeb inhalations. Lovenox for DVT prophylaxis. Remains in a negative balance. Follow up computed tomography scan of the chest reveals mild to moderate diffuse patchy opacities consistent with multifocal pneumonia. No pneumothorax. No pleural effusion. Right upper extremity PICC line remains in place. Objective - Vital Signs Vital signs: Vital Signs Temp 98.1 F 11/07/21 11:30 Pulse 68 11/07/21 12:16 Resp 20 11/07/21 11:30 BP 110/68 11/07/21 11:30 Pulse Ox 92 L 11/07/21 12:38 Intake & Output 11/06/21 11/07/21 11/07/21 18:59 06:59 18:59 Intake Total 222 180 Output Total 1200 901 1 Balance -978 -721 -1 Weight 114.1 kg Intake: Oral 222 180 Output: Urine 1200 900 Stool 1 1 Other: Voiding Method Indwelling Catheter Indwelling Catheter # Bowel Movements 1 1 - Exam GENERAL EXAM: Alert, interactive, very pleasant 45-year-old Down syndrome gentleman, on 10 L high flow nasal cannula, comfortable in no apparent distress. HEAD: Normocephalic. EYES: Normal reaction of pupils, equal size. NOSE: Clear with pink turbinates. THROAT: No erythema or exudates. NECK: No masses, no JVD. CHEST: No chest wall deformity. LUNGS: Equal air entry with bibasilar crackles CVS: S1 and S2 normal with no audible murmur, regular rhythm. ABDOMEN: No hepatosplenomegaly, normal bowel sounds, no guarding or rigidity. SPINE: No scoliosis or deformity SKIN: No rashes CENTRAL NERVOUS SYSTEM: No focal deficits, tone is normal in all 4 extremities. EXTREMITIES: There is 1 plus peripheral edema. No clubbing, no cyanosis. Peripheral pulses are intact. - Labs CBC & Chem 7: 11/07/21 06:35 11/07/21 06:35 Labs: Abnormal Lab Results - Last 24 Hours (Table) 11/07/21 11/07/21 Range/Units 06:35 06:35 Hct 55.2 H (39.0-53.0) % MCHC 29.8 L (31.0-37.0) g/dL RDW 18.4 H (11.5-15.5) % Carbon Dioxide 32.2 H (20.0-27.5) mmol/L BUN 8.1 L (9.0-27.0) mg/dL Glucose 127 H (70-110) mg/dL Calcium 8.5 L (8.7-10.3) mg/dL Assessment and Plan Assessment: 1 Acute hypoxemic respiratory failure secondary to suspected aspiration pneumonia, diastolic congestive heart failure and obesity/hypoventilation syndrome. CoVID screen negative. He is currently on 10 L high flow nasal cannula. Doing well and interactive. He remains on IV diuretics. He remains in a negative balance. Follow-up computed tomography scan of the chest on 11/06/2021 continues to show bilateral diffuse mild to moderate patchy opacities, greater on the right. No pneumothorax. No pleural effusion. 2 History of Down syndrome 3 History of hyperlipidemia 4 History of gastroesophageal reflux disease 5 Obstructive sleep apnea, intolerant to CPAP 6 Obesity/hypoventilation syndrome Plan: The patient was seen and evaluated Computed tomography scan of the chest and labs reviewed Decrease IV diuretics to every 12 hours Stable and up in a chair at the bedside Titrate down the FiO2 as tolerated Aspiration precautions Follow-up labs in the a.m. We will continue to follow I, the cosigning physician, performed a history & physical examination of the patient. Lungs sounds with bibasilar crackles. Maintaining O2 saturations in the 90s on 10 L high flow nasal cannula. I discussed the assessment and plan of care with my nurse practitioner, Roxana. I attest to the above note as dictated by her.
[2021-11-07] MEDS: SODIUM CHLORIDE 0.65% NASAL SPRAY 44 ML BTL NASAL PRN (21:24)
--- NOTE | 2021-11-07 23:50 | P.PN ---
Subjective Progress Note Date: 11/07/21 This is a 45-year-old male who was recently admitted with respiratory failure from aspiration pneumonia with pulmonary following closely. Patient is being closely monitored and maintained on IV lasix and will continue. Patient also continues on breathing inhalational treatments. Patient was on 15 L HF this morning and nursing staff working on weaning FI02 as tolerated. Currently maintained on 10L HF and oxygen saturation is 90%. Patient is sitting up in the chair and denies any worsening shortness of breath. Patient is not currently on any antibiotics. Patient is afebrile. Kidney functions and electrolytes being monitored closely as patient remains on IV lasix. Will order repeat labs and chest xray for the am. Labs: WBC is 7.7, hemoglobin is 16.4, platelets are 167, sodium is 140, potassium is 4.0, BUN is 8.1, creatinine is 0.6, calcium is 8.5 Review of systems: Constitutional: No reports of fatigue, fever, or chills Cardiovascular: No reports of chest pain or palpitations Respiratory: No reports of worsening shortness of breath GI: No reports of nausea, vomiting, or diarrhea : No reports of dysuria or retention Neurovascular: No reports of weakness or numbness All medications have been reviewed Active Medications Acetaminophen (Acetaminophen Tab 325 Mg Tab) 650 mg PO Q6HR PRN PRN Reason: Mild Pain or Fever > 100.5 Last Admin: 10/29/21 19:57 Dose: 650 mg Documented by: Hydrocodone Bitart/Acetaminophen (Hydrocodone/Apap 7.5-325mg 1 Each Tab) 1 each PO Q6HR PRN PRN Reason: Moderate to Severe Pain Albuterol/Ipratropium (Ipratropium-Albuterol 3 Ml Neb) 3 ml INHALATION RT-QID [facility] Last Admin: 11/07/21 12:05 Dose: 3 ml Documented by: Atorvastatin Calcium (Atorvastatin 40 Mg Tab) 40 mg PO DAILY [facility] Last Admin: 11/07/21 07:40 Dose: 40 mg Documented by: Enoxaparin Sodium (Enoxaparin 60 Mg/0.6 Ml Syringe) 40 mg SQ DAILY [facility] Last Admin: 11/07/21 07:40 Dose: 40 mg Documented by: Famotidine (Famotidine 20 Mg/2 Ml Vial) 20 mg IV Q12HR [facility] Last Admin: 11/07/21 07:39 Dose: 20 mg Documented by: Furosemide (Furosemide 10 Mg/Ml 4 Ml Vial) 40 mg IV Q12HR [facility] Sodium Chloride (Saline 0.9%) 500 mls @ 20 mls/hr IV .Q24H [facility] Last Admin: 11/06/21 21:34 Dose: Not Given Documented by: Miscellaneous Information (Potassium Replacement Protocol 1 Each Misc) 1 each MISCELLANE DAILY PRN; Protocol PRN Reason: Per Protocol Naloxone HCl (Naloxone 0.4 Mg/Ml 1 Ml Vial) 0.2 mg IV Q2M PRN PRN Reason: Opioid Reversal Ondansetron HCl (Ondansetron 4 Mg/2 Ml Vial) 4 mg IVP Q4HR PRN PRN Reason: Nausea And Vomiting Last Admin: 10/26/21 14:04 Dose: 4 mg Documented by: Potassium Chloride (Potassium Chloride Er 20 Meq Tab.Er) 20 meq PO DAILY [facility] Last Admin: 11/07/21 07:40 Dose: 20 meq Documented by: Sodium Chloride (Sodium Chloride 0.65% Nasal [place] 44 Ml Btl) 2 spray NASAL QID PRN PRN Reason: Dry Nasal Passages Last Admin: 10/29/21 00:11 Dose: 2 spray Documented by: Physical Exam: Gen: This is a 45-year-old male who is awake, alert and oriented 2-3, well- developed, well-nourished. Temp is 98.1 F, pulse is 78, respirations are 20, blood pressure is 110/68, oxygen saturation is 91% on 10L HF HEENT: Head is atraumatic, normocephalic. Pupils equal, round. Sclerae is anicteric. NECK: Supple. No JVD. No lymphadenopathy. No thyromegaly. LUNGS: Breath sounds diminished with some mild scattered rhonchi and crackles noted and minimal expiratory wheezing noted. No intercostal retractions. HEART: S1, S2 are muffled ABDOMEN: Soft. obese. Bowel sounds are present. No masses. No tenderness. EXTREMITIES: No pedal edema. No calf tenderness. NEUROLOGICAL: Patient is awake, alert and oriented 2-3, no focal deficits . Assessment: shortness of breath, possibly multifactorial with some fluid overload with congestive heart failure acute exacerbation, acute on chronic diastolic dysfunction, aspiration pneumonia as well as obesity hypoventilation syndrome Acute hypoxic respiratory failure history of obstructive sleep apnea, does not tolerate CPAP Down syndrome GERD Nausea, vomiting, possible respiratory alkalosis History of aspiration pneumonia Polycythemia hypokalemia hyponatremia Obesity with a body mass index of 43.5 full code Plan: Recommend to continue with current medications , management and symptomatic treatment. REcommend to continue with IV lasix and will repeat am labs and chest xray. Pulmonary following closely. Patient also continues on breathing inhalational treatments and will continue. Recommend to continue with aspiration precautions and supervision with meals. staff mine warfare officer continuing to monitor respiratory status closely and wean FI02 as tolerated. Patient is down to 10L HF with oxygen saturations of 90%. Due to multiple complex medical issues prognosis is guarded. Further recommendations to follow based on the clinical course of the patient. Objective - Vital Signs Vital signs: Vital Signs Temp 98.1 F 11/07/21 11:30 Pulse 68 11/07/21 12:16 Resp 20 11/07/21 11:30 BP 110/68 11/07/21 11:30 Pulse Ox 91 L 11/07/21 11:43 Intake & Output 11/06/21 11/07/21 11/07/21 18:59 06:59 18:59 Intake Total 222 180 Output Total 1200 901 1 Balance -978 -721 -1 Weight 114.1 kg Intake: Oral 222 180 Output: Urine 1200 900 Stool 1 1 Other: Voiding Method Indwelling Catheter Indwelling Catheter # Bowel Movements 1 1 - Labs CBC & Chem 7: 11/07/21 06:35 11/07/21 06:35 Labs: Abnormal Lab Results - Last 24 Hours (Table) 11/07/21 11/07/21 Range/Units 06:35 06:35 Hct 55.2 H (39.0-53.0) % MCHC 29.8 L (31.0-37.0) g/dL RDW 18.4 H (11.5-15.5) % Carbon Dioxide 32.2 H (20.0-27.5) mmol/L BUN 8.1 L (9.0-27.0) mg/dL Glucose 127 H (70-110) mg/dL Calcium 8.5 L (8.7-10.3) mg/dL
[2021-11-08] MEDS: SODIUM CHLORIDE 0.9% 500 ML 500 ML IV SCH ×2 (05:56→13:11)
[2021-11-08 07:19] LABS: African American GFR (CKD) >90 (>60 ml/min/1.73 sqM); Blood Urea Nitrogen 11 mg/dL (9-20); Calcium 8.5 mg/dL (8.4-10.2); Chloride 93 mmol/L (98-107); Glucose 155 mg/dL (74-99); Non-African American GFR(CKD) >90 (>60 ml/min/1.73 sqM); Potassium 4.2 mmol/L (3.5-5.1); Sodium 136 mmol/L (137-145)
[2021-11-08 07:26] LABS: Anion Gap 2 mmol/L
[2021-11-08 07:30] LABS: Carbon Dioxide 41 mmol/L (22-30)
[2021-11-08 07:59] LABS: Anisocytosis Slight; HCT 53.8 % (39.0-53.0); HGB 16.2 gm/dL (13.0-17.5); Hypochromasia Marked; MCH 28.9 pg (25.0-35.0); MCHC 30.2 g/dL (31.0-37.0); MCV 95.8 fL (80.0-100.0); Macrocytosis Slight; Mean Platelet Volume 9.9; Platelet Count 167 k/uL (150-450); RBC 5.62 m/uL (4.30-5.90); RDW 18.6 % (11.5-15.5); WBC 7.5 k/uL (3.8-10.6)
[2021-11-08] MEDS: FAMOTIDINE 20 MG/2 ML VIAL IV SCH (08:32)
[2021-11-08] MEDS: POTASSIUM CHLORIDE ER 20 MEQ TAB.ER PO SCH (08:32)
[2021-11-08] MEDS: FUROSEMIDE 10 MG/ML 4 ML VIAL IV SCH ×2 (08:32→15:51)
[2021-11-08] MEDS: ENOXAPARIN 40 MG/0.4 ML SYRINGE SQ SCH (08:32)
[2021-11-08] MEDS: ATORVASTATIN 40 MG TAB PO SCH (08:32)
[2021-11-08] MEDS: IPRATROPIUM-ALBUTEROL 3 ML NEB INHALATION SCH ×4 (09:08→19:57)
[2021-11-08 09:22] LABS: Basophils # (M) 0.08 k/uL (0-0.2); Eosinophils # (M) 0.15 k/uL (0-0.7); Lymphocytes # (M) 1.95 k/uL (1.0-4.8); Metamyelocytes # (M) 0.08 k/uL (0); Metamyelocytes % 1 %; Monocytes # (M) 0.53 k/uL (0-1.0); Myelocytes # (M) 0.08 k/uL (0); Myelocytes % 1 %; Neutrophils # (M) 4.88 k/uL (1.3-7.7); Neutrophils % (M) 65 %; Nucleated Red Blood Cells 0 /100 WBC (0-0); Total Cells Counted 200
[2021-11-08 09:23] LABS: Poikilocytosis (M) Present
--- NOTE | 2021-11-08 11:09 | XR ---
EXAMINATION TYPE: XR chest 1V portable DATE OF EXAM: 11/08/2021 COMPARISON: Chest x-ray 11/06/2021 HISTORY: Shortness of breath TECHNIQUE: Single frontal view of the chest is obtained. FINDINGS: Right-sided PICC line is again noted, distal tip is overlying the superior vena cava. Ther e is no evident pneumothorax or pleural effusion. Cardiac mediastinal silhouette is stable. Patchy de nsities present in the bilateral lungs similar to prior exam. There are overlying artifacts. IMPRESSION: Correlate for pneumonia versus atelectasis or scarring
--- NOTE | 2021-11-08 13:19 | P.PN ---
Subjective Progress Note Date: 11/08/21 This is a pleasant 45-year-old gentleman with a known history of Down syndrome, hyperlipidemia, obstructive sleep apnea but intolerant to CPAP, gastroesophageal reflux disease. He has a poor historian. He was brought into the emergency room yesterday after his family found him to be short of breath with cough and swelling of the lower extremities. He is quite hypoxic on arrival by EMS and was placed on nonrebreather mass. His x-ray reveals evidence of cardiomegaly with diffuse interstitial edema and basilar infiltrates. EKG reveals normal sinus rhythm without acute ST or T wave abnormalities. White count 6.9. Hemoglobin 17.1. Sodium 134. Creatinine 0.65. Lactic acid 1.5. AST 93. ALT 70. ProBNP 2470. Troponin 0.025. Chavira virus by PCR not detected. He was initiated on IV diuretics, antibiotics, bronchodilators and steroids. He is seen today in consultation in the emergency department. He is currently sitting up in a stretcher. Awake and alert in no acute distress. He is requiring 15 L high flow nasal cannula to maintain O2 saturation in the 90s. He's been afebrile. Hemodynamically stable. So far he is diuresed 1300 ML's. Weight 127 kg. On 10/19/2021 patient seen in follow-up on medical surgical floor, this morning his breathing was significantly labored, rapid response team was called, and patient was placed on BiPAP support with pressures of 12 and 5 and FiO2 100%. He continues on IV diuretics, he is currently on Lasix 40 mg every 12 hours, he is diuresing quite extensively, and he is currently in negative 5.3 L net fluid balance over the last 24 hours, lung sounds reveal diffuse crackles and diminished breath sounds, with slightly better aeration at the left lung. Bose catheter is in, and draining large amount of clear yellow urine, patient is aw jemal and alert, he is tolerating BiPAP support quite well, his been afebrile, no complaints of chest pain, his chest x-ray today shows stable bilateral infiltrates and pleural effusion. His pro calcitonin level was negative his antibiotics were discontinued, steroids have been discontinued, patient has been started on nebulized treatments. BMP results have been reviewed showing sodium of 143, potassium is 4.3, chloride is 94, CO2 is 39, BUN of 14, creatinine 0.7. On 10/20/2021 patient seen in follow-up on medical surgical floor. His breathing has significantly improved with diuresis, he is currently off BiPAP support, and on 15 L per high flow nasal cannula, his pulse ox is 94%, breathing very comfortably, lung sounds are diminished, without rales or wheezes, however patient is a shallow breather, he needs encouragement to take deep breaths and cough. No coughing noted, his been afebrile, we added Zosyn for his history of aspiration related to his fast eating habits. However his pro calcitonin level has been negative, but in view of his hypoxia we will cover him with Zosyn empir ically. He is in -3470 mL net fluid balance over the last 24 hours, lower extremity edema is improving, he remains on IV Lasix at 40 mg every 12 hours, he is on DuoNeb nebulized treatments, he is on Pepcid. We'll add Lovenox for DVT prophylaxis, today's labs have been reviewed showing white blood cell count of 9.2, hemoglobin of 16.2, sodium is 140, potassium is 4.1, chloride is 89, CO2 is 38, BUN of 13, creatinine 0.8. No nausea or vomiting, no diarrhea. He is feeling hungry, he would like to eat Reevaluated today on 10/21/21, patient is back on BiPAP today. And he is on the percent FiO2 feeling better breathing easier, but had a bit of a setback and requiring more FiO2 to maintain adequate oxygenation. Patient remains on diuretics, remains on antibiotics empirically, furosemide is at 40 mg IV push every 12 hours. Patient is marginal at best. He is not a great historian but he does not seem to be in distress on BiPAP. Labs today showed BNP level of 265, his blood sugar was 180. WBC count is 9.4. On 10/22/2021 patient seen in follow-up on medical surgical floor. He is cu rrently on BiPAP of 12 and 500% FiO2, his pulse ox is 95-97%, and his FiO2 will be cut back to 80%, patient has been coming off the BiPAP on 15 L high flow to it however she quickly desaturates, and has to return to BiPAP, otherwise he is breathing comfortably, his lung sounds are diminished, I did not appreciate any crackles or wheezing. He remains on IV Lasix 40 mg every 12 hours, And he is in negative 4.6 L net fluid balance over the last 24 hours, lower extremity edema is improving, yesterday chest x-ray showing interval decrease in bilateral airspace and interstitial opacities. On 10/23/2021 patient seen in follow-up on medical surgical floor. Earlier today he was on BiPAP support, with pressures of 12 and 5 and FiO2 of 100%, however he started vomiting, BiPAP was removed, patient was placed on Airvo, he was given a dose of Reglan, rapid response team was called, abdominal x-ray was obtained, showing nonspecific abdomen. he denies any abdominal pain, abdomen is soft, he did have a bowel movement yesterday. Chest x-ray showed patchy perihilar and basilar infiltrates, without significant change. Patient has been extensively diuresed, he is in -2.6 L net fluid balance over the last 24 hours. Resolved volume contraction alkalosis, his CO2 is up to 41, sodium was 135, pot assium 3.8, chloride is 86, B1 is 14 creatinine 0.6. Blood gas showed pO2 of 77, pCO2 of 90, pH is 7.35, consistent with chronic hypercapnic respiratory failure. D-dimer was not significantly elevated only 0.82, low stemming Doppler showed no evidence of DVT. No cough, no chest pain, no hemoptysis. The patient is suspected to be aspirating, and she has been on Zosyn for last 48 hours, today's labs show normal white count of 7.1, hemoglobin 16.3 proBNP level was about 265, and this was a significantly improved value from admission which was 2470 Reevaluated today on 10/24/21, patient is now in the ICU, placed back on BiPAP 16/800%, patient was noted to be placed on non-rebreather mask and airvo last night, and the patient is noted to be a bit lethargic but arousable. I recommended immediate placement on BiPAP, and this was done. His CT angiogram of the chest done yesterday and no evidence of pulmonary embolism as expected however it did show bilateral infiltrates, and I'm still suspicious that the patient is developing aspiration pneumonia as he did in the past. Patient does have a chronic history of aspiration pneumonia. WBC count today is 5.5 hemoglobin is 15.8. Normal basic metabolic profile is normal renal profile is normal bicarb is 41. Patient remains on updrafts, is also on Lovenox extremely milligrams twice a day and I will cut it down to 40 mg subcu daily remains on methylprednisolone, and he is also on Zosyn. Reevaluated today on 10/25/21, remains in the ICU, sitting at a bedside chair, remains on BiPAP, he is on 100% FiO2, IPAP of 16 and EPAP of 8, patient seems to be comfortable and he is not in distress. I recommended tapering down his FiO2 however the patient is to stay on BiPAP, and is to stay in the ICU for today. Chest x-ray continues show by basilar airspace disease and atelectasis. CBC is relatively normal, basic metabolic profile is normal bicarb is 39. ABG prior to transferring the patient to the ICU on BiPAP showed a pO2 of 54 pCO2 95 pH of 7.33 and this was 2 days ago. 10/26/2021, the patient is being seen in follow-up in intensive care unit. 45-year-old male patient with known history of Down syndrome, currently on a BiPAP for respiratory support due to palpitations of CHF and possible aspiration. Repeat chest x-ray was done today and it shows again persistent bilateral pulmonary infiltrates in the lower lung colon. Mediastinum is less wide compared to yesterday. There may be some improvement in the volume status. There is no significant cardiomegaly on today's chest x-ray. Meanwhile, the patient's is currently off the BiPAP. He is using Airvo at 60 L with an FiO2 of 90% in addition to 100% nonrebreather facemask and his current pulse ox is in the order of 85%. His current cardiac rhythm is sinus. His fluid balance over the past 24 hours has been +185 mL. The patient however is producing urine outp ut and the urine output is in order of 25-30 mL an hour.. He is currently on IV Zosyn covering him for aspiration pneumonia. He is nothing by mouth for now and the patient is receiving PPN for nutritional support. On today's blood work, his white cell count of 5.6 with a hemoglobin of 17.9, platelets of 185, BUN of 22 with a creatinine of 0.6 and the sodium level is at 138. Meanwhile, his echo cardiogram that was done on 10/18/2021 showed a preserved LV function with an ejection fraction of 50-55%, no significant valvular abnormalities have been noted. The patient pro-calcitonin level and time of admission was 0.09. The patient's proBNP level at the time of admission was 2470 and it dropped down to 265. 10/27/2021, the patient is doing well. As the patient is awake and alert. The patient is off BiPAP and the patient is currently on Airvo 60 L of 5-70%. The patient is also utilizing on and off 100% nonrebreather facemask. The patient was started on a Lasix drip yesterday 5 mg an hour. The patient is also on Zaroxolyn 2.5 mg twice a day. Overall fluid balance is -4.2 L over the past 24 hours. Meanwhile, the patient feels less short of breath. Chest x-ray still showing pulmonary edema and bilateral pleural effusions. There may be some limited improvement in the volume status bilaterally. Clinically the patient is more stable and his breathing is not labored this point in time. In terms of his blood work, the patient's sodium level today is at 132 with a potassium level of 4.1 and serum bicarbonate 38. The blood gas showed a pH of 7.4 with a pCO2 of 73 and pO2 of 63 from yesterday and this was done and FiO2 of 70% while being on Airvo at 60 L. The white cell count today is at 7.5 with hemoglobin of 18 and platelet count of 177. In terms of treatment, the patient is still on Lasix drip and Zaroxolyn. The patient is also on empiric antibiotic coverage w ith IV Zosyn covering for aspiration pneumonia. In terms of his swallow, he is able to swallow. I think it's reasonable to advance his diet and discontinue TPN for now. The patient is seen today 10/28/2021 in follow-up on the regular medical floor. He is currently sitting up in a chair at the bedside. Awake and alert in no acute distress. He remains on AirVo high flow oxygen at 60 L and 75% FiO2. He did not require the BiPAP last night. Sodium 132. Potassium 3.1. Chloride 73. Bicarb 49. BUN 50. Creatinine 0.94. Glucose 146. He is currently on a Lasix drip at 5 mg per hour. He is also on Zaroxolyn. He is in -9 L balance the past 24-48 hours. Weight of 128 kg. He remains on antibiotics in the form of Zosyn. Lovenox for DVT prophylaxis. Continue bronchodilators. The patient is seen today 10/29/2021 in follow-up on the regular medical floor. He is awake and alert in no acute distress. Sitting up in a chair at the bedside. He remains on AirVo high flow oxygen at 60 L and 85% FiO2. He is maintaining O2 saturations in the low 90s. White count 8.1. Hemoglobin 18.6. Sodium 135. Potassium 2.3. Bicarb 38. Glucose 123. Creatinine 0.9. AST 41. ALT 41. He remains on Lovenox, bronchodilators. IV diuretics. Remains in a - 0.9 L balance. Antibiotics in the form of Zosyn. He has not utilized the BiPAP. The patient is seen today 11/01/2021 in follow-up on the regular medical floor. He is awake and alert in no acute distress. His mom is currently with him at the bedside. He is still requiring AirVo high flow oxygen at 50 liters and 70% FiO2 with O2 saturation of 90%. He is continued on DuoNeb inhalations, IV diuretics. Lovenox for DVT prophylaxis. He remains in a -2.3 L balance. Follow-up labs pending. The patient is seen today 11/02/2021 in follow-up on the regular medical floor. He is sitting up in bed. Awake and alert. Continues to require high flow AirVo at 50 L and 70% FiO2. Once the patient's oxygen was titrated down he did drop to 86%. Chest x-ray continues to show bilateral patchy airspace disease. No pneumothorax or pleural effusion. Right-sided PICC line remains in place. White count 7.2. Hemoglobin 17.0. Sodium 139. Potassium 3.2. Creatinine 0.7. AST 25. ALT 76. He is continued on DuoNeb inhalations. The patient seen today 11/03/2021 in follow-up on the regular medical floor. He is currently sitting up in a chair at the bedside. Awake and alert in no acute distress. Very interactive today. He is still requiring AirVo high flow oxygen at 45 L and 50% FiO2. Respiratory continues to work to titrate it down. He remains on DuoNeb inhalations 4 times a day. White count 5.8. Hemoglobin 17.5. Sodium 136. Potassium 3.4. Chloride 91. Bicarb 34. Creatinine 0.6. Pro- calcitonin 0.08. The patient is seen today 11/04/2021 in follow-up on the regular medical floor. He was found sitting up in the chair at the bedside without his oxygen on. His O2 saturation was at 59% on room air. He recovered nicely up into the low 90s on the 15 L high flow nasal cannula that he's been asked to keep on. The patient does have Down syndrome. He needs closer supervision. Sitting staff was notified. No new labs today. He is continued on DuoNeb inhalations. IV diuretics. Lovenox for DVT prophylaxis. The patient is seen today 11/07/2021 in follow-up on the regular medical floor. He is awake and alert. He is sitting up in a chair at the bedside. He is interactive. He is currently on 10 L high flow nasal cannula with O2 saturation at 92%. White count 7.7. Hemoglobin 16.4. Sodium 140. Potassium 4.0. Creatinine 0.6. Glucose 127. He is continued on Lasix 40 mg IV every 8 hours, DuoNeb inhalations. Lovenox for DVT prophylaxis. Remains in a negative balance. Follow up computed tomography scan of the chest reveals mild to moderate diffuse patchy opacities consistent with multifocal pneumonia. No pneumothorax. No pleural effusion. Right upper extremity PICC line remains in place. The patient is seen again today 11/08/2021 in follow-up on the regular medical floor. He is currently sitting up in a chair at the bedside. Awake and alert in no acute distress. He remains on 8 L high flow nasal cannula to maintain O2 saturations in the 90s. He is afebrile. Hemodynamically stable. Chest x-ray continues to suggest atelectasis versus scarring in the lung bases. No pne umothorax. No peripheral pleural effusion. White count 7.5. Hemoglobin 16.2. Sodium 136. Potassium 4.2. Bicarb 41. Creatinine 0.72. He is continued on bronchodilators, IV diuretics. Objective - Vital Signs Vital signs: Vital Signs Temp 98.0 F 11/08/21 11:00 Pulse 72 11/08/21 12:39 Resp 20 11/08/21 11:00 BP 120/69 11/08/21 11:00 Pulse Ox 90 L 11/08/21 12:45 Intake & Output 11/07/21 11/08/21 11/08/21 18:59 06:59 18:59 Intake Total 800 711 Output Total 1001 1600 Balance -201 -889 Weight 117.3 kg Intake: Oral 800 711 Output: Urine 1000 1600 Coude 100 Stool 1 Other: Voiding Method Indwelling Catheter Indwelling Catheter Indwelling Catheter - Exam GENERAL EXAM: Alert, interactive, very pleasant 45-year-old Down syndrome gentleman, on 8 L high flow nasal cannula, comfortable in no apparent distress. HEAD: Normocephalic. EYES: Normal reaction of pupils, equal size. NOSE: Clear with pink turbinates. THROAT: No erythema or exudates. NECK: No masses, no JVD. CHEST: No chest wall deformity. LUNGS: Equal air entry with bibasilar crackles CVS: S1 and S2 normal with no audible murmur, regular rhythm. ABDOMEN: No hepatosplenomegaly, normal bowel sounds, no guarding or rigidity. SPINE: No scoliosis or deformity SKIN: No rashes CENTRAL NERVOUS SYSTEM: No focal deficits, tone is normal in all 4 extremities. EXTREMITIES: There is 1 plus peripheral edema. No clubbing, no cyanosis. Peripheral pulses are intact. - Labs CBC & Chem 7: 11/08/21 06:29 11/08/21 06:29 Labs: Abnormal Lab Results - Last 24 Hours (Table) 11/08/21 11/08/21 Range/Units 06:29 06:29 Hct 53.8 H (39.0-53.0) % MCHC 30.2 L (31.0-37.0) g/dL RDW 18.6 H (11.5-15.5) % Metamyelocytes # (Man) 0.08 H (0) k/uL Myelocytes # (Manual) 0.08 H (0) k/uL Sodium 136 L (137-145) mmol/L Chloride 93 L (98-107) mmol/L Carbon Dioxide 41 H* (22-30) mmol/L Glucose 155 H (74-99) mg/dL Microbiology - Last 24 Hours (Table) 11/06/21 20:52 Blood Culture - Preliminary Blood No Growth after 24 hours Assessment and Plan Assessment: 1 Acute hypoxemic respiratory failure secondary to suspected aspiration pneumonia, diastolic congestive heart failure and obesity/hypoventilation syndrome. CoVID screen negative. He is currently on 10 L high flow nasal cannula. Doing well and interactive. He remains on IV diuretics. He remains in a negative balance. Follow-up computed tomography scan of the chest on 11/06/2021 continues to show bilateral diffuse mild to moderate patchy opacities, greater on the right. Follow-up chest x-ray 11/08/2021 continues to show basilar atelectasis versus scarring. No pneumothorax. No pleural effusion . 2 History of Down syndrome 3 History of hyperlipidemia 4 History of gastroesophageal reflux disease 5 Obstructive sleep apnea, intolerant to CPAP 6 Obesity/hypoventilation syndrome Plan: The patient was seen and evaluated Chest x-ray and labs reviewed Stable and up in a chair at the bedside Titrate down the FiO2 as tolerated Aspiration precautions IV diuretics per medicine We will continue to follow I, the cosigning physician, performed a history & physical examination of the patient. Lungs sounds with bibasilar crackles. Maintaining O2 saturations in the 90s on 8 L high flow nasal cannula. I discussed the assessment and plan of care with my nurse practitioner, Roxana. I attest to the above note as dictated by her.
[2021-11-08] MEDS: FAMOTIDINE 20 MG TAB PO SCH (21:56)
--- NOTE | 2021-11-08 22:56 | P.PN ---
Subjective Progress Note Date: 11/08/21 This is a 45-year-old male who was recently admitted with respiratory failure from aspiration pneumonia with pulmonary following closely. Patient is being closely monitored and maintained on IV lasix and will continue. Patient also continues on breathing inhalational treatments. Patient was on 15 L HF this morning and nursing staff working on weaning FI02 as tolerated. Currently maintained on 10L HF and oxygen saturation is 90%. Patient is sitting up in the chair and denies any worsening shortness of breath. Patient is not currently on any antibiotics. Patient is afebrile. Kidney functions and electrolytes being monitored closely as patient remains on IV lasix. Will order repeat labs and chest xray for the am. 11/08/2021 Patient is seen in follow-up this morning and continues on High flow oxygen via NC and engineer technical staff working on weaning FI02 as tolerated. Patient is currently maintained on 8L HF. Patient is also maintained on IV lasix every 8 hours and will continue. Chest xray viewed personally by me shows continued patchy densities in bilateral lung colon similar to previous exam to correlate for pneumonia versus atelectasis or scarring. Recommend using Bipap from 8pm to 8am if patient tolerates as well. Patient is diuresing well and discussed with nursing staff about strict intake and output. Case management following and will consult social work if ECF is being planned. Will continue to monitor closely and repeat am labs. Labs: WBC is 7.5, hemoglobin is 16.2, hematocrit is 53.8, platelets are 167, sodium is 136, potassium is 4.2, carbon dioxide is 41, BUN is 11, creatinine is 0.72, calcium is 8.5 Review of systems: Constitutional: No reports of fatigue, fever, or chills Cardiovascular: No reports of chest pain or palpitations Respiratory: No reports of worsening shortness of breath GI: No reports of nausea, vomiting, or diarrhea : No reports of dysuria or retention Neurovascular: No reports of weakness or numbness All medications have been reviewed Active Medications Acetaminophen (Acetaminophen Tab 325 Mg Tab) 650 mg PO Q6HR PRN PRN Reason: Mild Pain or Fever > 100.5 Last Admin: 10/29/21 19:57 Dose: 650 mg Documented by: Hydrocodone Bitart/Acetaminophen (Hydrocodone/Apap 7.5-325mg 1 Each Tab) 1 each PO Q6HR PRN PRN Reason: Moderate to Severe Pain Albuterol/Ipratropium (Ipratropium-Albuterol 3 Ml Neb) 3 ml INHALATION RT-QID [facility] Last Admin: 11/08/21 15:59 Dose: 3 ml Documented by: Atorvastatin Calcium (Atorvastatin 40 Mg Tab) 40 mg PO DAILY [facility] Last Admin: 11/08/21 08:32 Dose: 40 mg Documented by: Enoxaparin Sodium (Enoxaparin 40 Mg/0.4 Ml Syringe) 40 mg SQ DAILY [facility] Last Admin: 11/08/21 08:32 Dose: 40 mg Documented by: Famotidine (Famotidine 20 Mg Tab) 20 mg PO BID [facility] Furosemide (Furosemide 10 Mg/Ml 4 Ml Vial) 40 mg IV Q8HR [facility] Last Admin: 11/08/21 15:51 Dose: 40 mg Documented by: Sodium Chloride (Saline 0.9%) 500 mls @ 20 mls/hr IV .Q24H [facility] Last Admin: 11/08/21 13:11 Dose: Not Given Documented by: Miscellaneous Information (Potassium Replacement Protocol 1 Each [facility]) 1 each MISCELLANE DAILY PRN; Protocol PRN Reason: Per Protocol Naloxone HCl (Naloxone 0.4 Mg/Ml 1 Ml Vial) 0.2 mg IV Q2M PRN PRN Reason: Opioid Reversal Ondansetron HCl (Ondansetron 4 Mg/2 Ml Vial) 4 mg IVP Q4HR PRN PRN Reason: Nausea And Vomiting Last Admin: 10/26/21 14:04 Dose: 4 mg Documented by: Potassium Chloride (Potassium Chloride Er 20 Meq Tab.Er) 20 meq PO DAILY [facility] Last Admin: 11/08/21 08:32 Dose: 20 meq Documented by: Sodium Chloride (Sodium Chloride 0.65% Nasal [place] 44 Ml Btl) 2 spray NASAL QID PRN PRN Reason: Dry Nasal Passages Last Admin: 11/07/21 21:24 Dose: 2 spray Documented by: Physical Exam: Gen: This is a 45-year-old male who is awake, alert and oriented 2-3, well- developed, well-nourished. Temp is 98.0 F, pulse is 67, respirations are 20, blood pressure is 120/69, oxygen saturation is 96% on 8L HF HEENT: Head is atraumatic, normocephalic. Pupils equal, round. Sclerae is anicteric. NECK: Supple. No JVD. No lymphadenopathy. No thyromegaly. LUNGS: Breath sounds diminished with some mild scattered rhonchi and crackles noted . No intercostal retractions. HEART: S1, S2 are muffled ABDOMEN: Soft. obese. Bowel sounds are present. No masses. No tenderness. EXTREMITIES: No pedal edema. No calf tenderness. NEUROLOGICAL: Patient is awake, alert and oriented 2-3, no focal deficits . Assessment: shortness of breath, possibly multifactorial with some fluid overload with congestive heart failure acute exacerbation, acute on chronic diastolic dysfunction, aspiration pneumonia as well as obesity hypoventilation syndrome Acute hypoxic respiratory failure history of obstructive sleep apnea, does not tolerate CPAP Down syndrome GERD Nausea, vomiting, possible respiratory alkalosis, improved History of aspiration pneumonia Polycythemia hypokalemia, improved hyponatremia, improved Obesity with a body mass index of 43.5 full code Plan: Recommend to continue with current medications, management and symptomatic treatment. Recommend to continue with IV lasix every 8 hours and will repeat am labs and chest xray. Strict intake and output. Pulmonary following closely. Patient also continues on breathing inhalational treatments and will continue. Recommend to continue with aspiration precautions and supervision with meals. engineer technical staff continuing to monitor respiratory status closely and wean FI02 as tolerated. Patient is down to 8L HF with oxygen saturations of 90%. Discussed with respiratory staff about bipap and recommend using 8pm to 8am if patient tolerates. Due to multiple complex medical issues prognosis is guarded. Further recommendations to follow based on the clinical course of the patient. Objective - Vital Signs Vital signs: Vital Signs Temp 98.4 F 11/08/21 05:00 Pulse 74 11/08/21 09:22 Resp 18 11/08/21 05:00 BP 145/71 11/08/21 05:00 Pulse Ox 92 L 11/08/21 10:32 Intake & Output 11/07/21 11/08/21 11/08/21 18:59 06:59 18:59 Intake Total 800 711 Output Total 1001 1600 Balance -201 -889 Weight 117.3 kg Intake: Oral 800 711 Output: Urine 1000 1600 Coude 100 Stool 1 Other: Voiding Method Indwelling Catheter Indwelling Catheter Indwelling Catheter - Labs CBC & Chem 7: 11/08/21 06:29 11/08/21 06:29 Labs: Abnormal Lab Results - Last 24 Hours (Table) 11/08/21 11/08/21 Range/Units 06:29 06:29 Hct 53.8 H (39.0-53.0) % MCHC 30.2 L (31.0-37.0) g/dL RDW 18.6 H (11.5-15.5) % Metamyelocytes # (Man) 0.08 H (0) k/uL Myelocytes # (Manual) 0.08 H (0) k/uL Sodium 136 L (137-145) mmol/L Chloride 93 L (98-107) mmol/L Carbon Dioxide 41 H* (22-30) mmol/L Glucose 155 H (74-99) mg/dL Microbiology - Last 24 Hours (Table) 11/06/21 20:52 Blood Culture - Preliminary Blood No Growth after 24 hours
[2021-11-09] MEDS: FUROSEMIDE 10 MG/ML 4 ML VIAL IV SCH ×4 (00:40→23:30)
[2021-11-09 06:41] LABS: Anisocytosis Slight; Basophils # (A) 0.1 k/uL (0-0.2); Basophils % (A) 1 %; Eosinophils # (A) 0.1 k/uL (0-0.7); Eosinophils % (A) 2 %; HCT 54.5 % (39.0-53.0); HGB 16.3 gm/dL (13.0-17.5); Hypochromasia Marked; Lymphocytes # (A) 1.7 k/uL (1.0-4.8); Lymphocytes % (A) 24 %; MCH 28.3 pg (25.0-35.0); MCV 94.3 fL (80.0-100.0); Mean Platelet Volume 9.5; Monocytes # (A) 0.4 k/uL (0-1.0); Monocytes % (A) 6 %; Neutrophils # (A) 4.3 k/uL (1.3-7.7); Neutrophils % (A) 62 %; Platelet Count 158 k/uL (150-450); RBC 5.79 m/uL (4.30-5.90); RDW 18.6 % (11.5-15.5); WBC 6.9 k/uL (3.8-10.6)
[2021-11-09 06:44] LABS: African American GFR (CKD) >90 (>60 ml/min/1.73 sqM); Blood Urea Nitrogen 15 mg/dL (9-20); Calcium 8.5 mg/dL (8.4-10.2); Chloride 93 mmol/L (98-107); Glucose 104 mg/dL (74-99); Non-African American GFR(CKD) >90 (>60 ml/min/1.73 sqM); Potassium 4.3 mmol/L (3.5-5.1); Sodium 139 mmol/L (137-145)
[2021-11-09 06:50] LABS: Anion Gap 7 mmol/L; Carbon Dioxide 39 mmol/L (22-30)
[2021-11-09] MEDS: IPRATROPIUM-ALBUTEROL 3 ML NEB INHALATION SCH ×4 (07:34→19:51)
[2021-11-09] MEDS: ENOXAPARIN 40 MG/0.4 ML SYRINGE SQ SCH (09:37)
[2021-11-09] MEDS: ATORVASTATIN 40 MG TAB PO SCH (09:38)
[2021-11-09] MEDS: FAMOTIDINE 20 MG TAB PO SCH ×2 (09:38→19:59)
[2021-11-09] MEDS: POTASSIUM CHLORIDE ER 20 MEQ TAB.ER PO SCH (09:40)
[2021-11-09] MEDS: SODIUM CHLORIDE 0.9% 500 ML 500 ML IV SCH (13:51)
--- NOTE | 2021-11-09 14:18 | P.PN ---
Subjective Progress Note Date: 11/09/21 This is a pleasant 45-year-old gentleman with a known history of Down syndrome, hyperlipidemia, obstructive sleep apnea but intolerant to CPAP, gastroesophageal reflux disease. He has a poor historian. He was brought into the emergency room yesterday after his family found him to be short of breath with cough and swelling of the lower extremities. He is quite hypoxic on arrival by EMS and was placed on nonrebreather mass. His x-ray reveals evidence of cardiomegaly with diffuse interstitial edema and basilar infiltrates. EKG reveals normal sinus rhythm without acute ST or T wave abnormalities. White count 6.9. Hemoglobin 17.1. Sodium 134. Creatinine 0.65. Lactic acid 1.5. AST 93. ALT 70. ProBNP 2470. Troponin 0.025. Chavira virus by PCR not detected. He was initiated on IV diuretics, antibiotics, bronchodilators and steroids. He is seen today in consultation in the emergency department. He is currently sitting up in a stretcher. Awake and alert in no acute distress. He is requiring 15 L high flow nasal cannula to maintain O2 saturation in the 90s. He's been afebrile. Hemodynamically stable. So far he is diuresed 1300 ML's. Weight 127 kg. On 10/19/2021 patient seen in follow-up on medical surgical floor, this morning his breathing was significantly labored, rapid response team was called, and patient was placed on BiPAP support with pressures of 12 and 5 and FiO2 100%. He continues on IV diuretics, he is currently on Lasix 40 mg every 12 hours, he is diuresing quite extensively, and he is currently in negative 5.3 L net fluid balance over the last 24 hours, lung sounds reveal diffuse crackles and diminished breath sounds, with slightly better aeration at the left lung. Bose catheter is in, and draining large amount of clear yellow urine, patient is aw jemal and alert, he is tolerating BiPAP support quite well, his been afebrile, no complaints of chest pain, his chest x-ray today shows stable bilateral infiltrates and pleural effusion. His pro calcitonin level was negative his antibiotics were discontinued, steroids have been discontinued, patient has been started on nebulized treatments. BMP results have been reviewed showing sodium of 143, potassium is 4.3, chloride is 94, CO2 is 39, BUN of 14, creatinine 0.7. On 10/20/2021 patient seen in follow-up on medical surgical floor. His breathing has significantly improved with diuresis, he is currently off BiPAP support, and on 15 L per high flow nasal cannula, his pulse ox is 94%, breathing very comfortably, lung sounds are diminished, without rales or wheezes, however patient is a shallow breather, he needs encouragement to take deep breaths and cough. No coughing noted, his been afebrile, we added Zosyn for his history of aspiration related to his fast eating habits. However his pro calcitonin level has been negative, but in view of his hypoxia we will cover him with Zosyn empir ically. He is in -3470 mL net fluid balance over the last 24 hours, lower extremity edema is improving, he remains on IV Lasix at 40 mg every 12 hours, he is on DuoNeb nebulized treatments, he is on Pepcid. We'll add Lovenox for DVT prophylaxis, today's labs have been reviewed showing white blood cell count of 9.2, hemoglobin of 16.2, sodium is 140, potassium is 4.1, chloride is 89, CO2 is 38, BUN of 13, creatinine 0.8. No nausea or vomiting, no diarrhea. He is feeling hungry, he would like to eat Reevaluated today on 10/21/21, patient is back on BiPAP today. And he is on the percent FiO2 feeling better breathing easier, but had a bit of a setback and requiring more FiO2 to maintain adequate oxygenation. Patient remains on diuretics, remains on antibiotics empirically, furosemide is at 40 mg IV push every 12 hours. Patient is marginal at best. He is not a great historian but he does not seem to be in distress on BiPAP. Labs today showed BNP level of 265, his blood sugar was 180. WBC count is 9.4. On 10/22/2021 patient seen in follow-up on medical surgical floor. He is cu rrently on BiPAP of 12 and 500% FiO2, his pulse ox is 95-97%, and his FiO2 will be cut back to 80%, patient has been coming off the BiPAP on 15 L high flow to it however she quickly desaturates, and has to return to BiPAP, otherwise he is breathing comfortably, his lung sounds are diminished, I did not appreciate any crackles or wheezing. He remains on IV Lasix 40 mg every 12 hours, And he is in negative 4.6 L net fluid balance over the last 24 hours, lower extremity edema is improving, yesterday chest x-ray showing interval decrease in bilateral airspace and interstitial opacities. On 10/23/2021 patient seen in follow-up on medical surgical floor. Earlier today he was on BiPAP support, with pressures of 12 and 5 and FiO2 of 100%, however he started vomiting, BiPAP was removed, patient was placed on Airvo, he was given a dose of Reglan, rapid response team was called, abdominal x-ray was obtained, showing nonspecific abdomen. he denies any abdominal pain, abdomen is soft, he did have a bowel movement yesterday. Chest x-ray showed patchy perihilar and basilar infiltrates, without significant change. Patient has been extensively diuresed, he is in -2.6 L net fluid balance over the last 24 hours. Resolved volume contraction alkalosis, his CO2 is up to 41, sodium was 135, pot assium 3.8, chloride is 86, B1 is 14 creatinine 0.6. Blood gas showed pO2 of 77, pCO2 of 90, pH is 7.35, consistent with chronic hypercapnic respiratory failure. D-dimer was not significantly elevated only 0.82, low stemming Doppler showed no evidence of DVT. No cough, no chest pain, no hemoptysis. The patient is suspected to be aspirating, and she has been on Zosyn for last 48 hours, today's labs show normal white count of 7.1, hemoglobin 16.3 proBNP level was about 265, and this was a significantly improved value from admission which was 2470 Reevaluated today on 10/24/21, patient is now in the ICU, placed back on BiPAP 16/800%, patient was noted to be placed on non-rebreather mask and airvo last night, and the patient is noted to be a bit lethargic but arousable. I recommended immediate placement on BiPAP, and this was done. His CT angiogram of the chest done yesterday and no evidence of pulmonary embolism as expected however it did show bilateral infiltrates, and I'm still suspicious that the patient is developing aspiration pneumonia as he did in the past. Patient does have a chronic history of aspiration pneumonia. WBC count today is 5.5 hemoglobin is 15.8. Normal basic metabolic profile is normal renal profile is normal bicarb is 41. Patient remains on updrafts, is also on Lovenox extremely milligrams twice a day and I will cut it down to 40 mg subcu daily remains on methylprednisolone, and he is also on Zosyn. Reevaluated today on 10/25/21, remains in the ICU, sitting at a bedside chair, remains on BiPAP, he is on 100% FiO2, IPAP of 16 and EPAP of 8, patient seems to be comfortable and he is not in distress. I recommended tapering down his FiO2 however the patient is to stay on BiPAP, and is to stay in the ICU for today. Chest x-ray continues show by basilar airspace disease and atelectasis. CBC is relatively normal, basic metabolic profile is normal bicarb is 39. ABG prior to transferring the patient to the ICU on BiPAP showed a pO2 of 54 pCO2 95 pH of 7.33 and this was 2 days ago. 10/26/2021, the patient is being seen in follow-up in intensive care unit. 45-year-old male patient with known history of Down syndrome, currently on a BiPAP for respiratory support due to palpitations of CHF and possible aspiration. Repeat chest x-ray was done today and it shows again persistent bilateral pulmonary infiltrates in the lower lung colon. Mediastinum is less wide compared to yesterday. There may be some improvement in the volume status. There is no significant cardiomegaly on today's chest x-ray. Meanwhile, the patient's is currently off the BiPAP. He is using Airvo at 60 L with an FiO2 of 90% in addition to 100% nonrebreather facemask and his current pulse ox is in the order of 85%. His current cardiac rhythm is sinus. His fluid balance over the past 24 hours has been +185 mL. The patient however is producing urine outp ut and the urine output is in order of 25-30 mL an hour.. He is currently on IV Zosyn covering him for aspiration pneumonia. He is nothing by mouth for now and the patient is receiving PPN for nutritional support. On today's blood work, his white cell count of 5.6 with a hemoglobin of 17.9, platelets of 185, BUN of 22 with a creatinine of 0.6 and the sodium level is at 138. Meanwhile, his echo cardiogram that was done on 10/18/2021 showed a preserved LV function with an ejection fraction of 50-55%, no significant valvular abnormalities have been noted. The patient pro-calcitonin level and time of admission was 0.09. The patient's proBNP level at the time of admission was 2470 and it dropped down to 265. 10/27/2021, the patient is doing well. As the patient is awake and alert. The patient is off BiPAP and the patient is currently on Airvo 60 L of 5-70%. The patient is also utilizing on and off 100% nonrebreather facemask. The patient was started on a Lasix drip yesterday 5 mg an hour. The patient is also on Zaroxolyn 2.5 mg twice a day. Overall fluid balance is -4.2 L over the past 24 hours. Meanwhile, the patient feels less short of breath. Chest x-ray still showing pulmonary edema and bilateral pleural effusions. There may be some limited improvement in the volume status bilaterally. Clinically the patient is more stable and his breathing is not labored this point in time. In terms of his blood work, the patient's sodium level today is at 132 with a potassium level of 4.1 and serum bicarbonate 38. The blood gas showed a pH of 7.4 with a pCO2 of 73 and pO2 of 63 from yesterday and this was done and FiO2 of 70% while being on Airvo at 60 L. The white cell count today is at 7.5 with hemoglobin of 18 and platelet count of 177. In terms of treatment, the patient is still on Lasix drip and Zaroxolyn. The patient is also on empiric antibiotic coverage w ith IV Zosyn covering for aspiration pneumonia. In terms of his swallow, he is able to swallow. I think it's reasonable to advance his diet and discontinue TPN for now. The patient is seen today 10/28/2021 in follow-up on the regular medical floor. He is currently sitting up in a chair at the bedside. Awake and alert in no acute distress. He remains on AirVo high flow oxygen at 60 L and 75% FiO2. He did not require the BiPAP last night. Sodium 132. Potassium 3.1. Chloride 73. Bicarb 49. BUN 50. Creatinine 0.94. Glucose 146. He is currently on a Lasix drip at 5 mg per hour. He is also on Zaroxolyn. He is in -9 L balance the past 24-48 hours. Weight of 128 kg. He remains on antibiotics in the form of Zosyn. Lovenox for DVT prophylaxis. Continue bronchodilators. The patient is seen today 10/29/2021 in follow-up on the regular medical floor. He is awake and alert in no acute distress. Sitting up in a chair at the bedside. He remains on AirVo high flow oxygen at 60 L and 85% FiO2. He is maintaining O2 saturations in the low 90s. White count 8.1. Hemoglobin 18.6. Sodium 135. Potassium 2.3. Bicarb 38. Glucose 123. Creatinine 0.9. AST 41. ALT 41. He remains on Lovenox, bronchodilators. IV diuretics. Remains in a - 0.9 L balance. Antibiotics in the form of Zosyn. He has not utilized the BiPAP. The patient is seen today 11/01/2021 in follow-up on the regular medical floor. He is awake and alert in no acute distress. His mom is currently with him at the bedside. He is still requiring AirVo high flow oxygen at 50 liters and 70% FiO2 with O2 saturation of 90%. He is continued on DuoNeb inhalations, IV diuretics. Lovenox for DVT prophylaxis. He remains in a -2.3 L balance. Follow-up labs pending. The patient is seen today 11/02/2021 in follow-up on the regular medical floor. He is sitting up in bed. Awake and alert. Continues to require high flow AirVo at 50 L and 70% FiO2. Once the patient's oxygen was titrated down he did drop to 86%. Chest x-ray continues to show bilateral patchy airspace disease. No pneumothorax or pleural effusion. Right-sided PICC line remains in place. White count 7.2. Hemoglobin 17.0. Sodium 139. Potassium 3.2. Creatinine 0.7. AST 25. ALT 76. He is continued on DuoNeb inhalations. The patient seen today 11/03/2021 in follow-up on the regular medical floor. He is currently sitting up in a chair at the bedside. Awake and alert in no acute distress. Very interactive today. He is still requiring AirVo high flow oxygen at 45 L and 50% FiO2. Respiratory continues to work to titrate it down. He remains on DuoNeb inhalations 4 times a day. White count 5.8. Hemoglobin 17.5. Sodium 136. Potassium 3.4. Chloride 91. Bicarb 34. Creatinine 0.6. Pro- calcitonin 0.08. The patient is seen today 11/04/2021 in follow-up on the regular medical floor. He was found sitting up in the chair at the bedside without his oxygen on. His O2 saturation was at 59% on room air. He recovered nicely up into the low 90s on the 15 L high flow nasal cannula that he's been asked to keep on. The patient does have Down syndrome. He needs closer supervision. Sitting staff was notified. No new labs today. He is continued on DuoNeb inhalations. IV diuretics. Lovenox for DVT prophylaxis. The patient is seen today 11/07/2021 in follow-up on the regular medical floor. He is awake and alert. He is sitting up in a chair at the bedside. He is interactive. He is currently on 10 L high flow nasal cannula with O2 saturation at 92%. White count 7.7. Hemoglobin 16.4. Sodium 140. Potassium 4.0. Creatinine 0.6. Glucose 127. He is continued on Lasix 40 mg IV every 8 hours, DuoNeb inhalations. Lovenox for DVT prophylaxis. Remains in a negative balance. Follow up computed tomography scan of the chest reveals mild to moderate diffuse patchy opacities consistent with multifocal pneumonia. No pneumothorax. No pleural effusion. Right upper extremity PICC line remains in place. The patient is seen again today 11/08/2021 in follow-up on the regular medical floor. He is currently sitting up in a chair at the bedside. Awake and alert in no acute distress. He remains on 8 L high flow nasal cannula to maintain O2 saturations in the 90s. He is afebrile. Hemodynamically stable. Chest x-ray continues to suggest atelectasis versus scarring in the lung bases. No pne umothorax. No peripheral pleural effusion. White count 7.5. Hemoglobin 16.2. Sodium 136. Potassium 4.2. Bicarb 41. Creatinine 0.72. He is continued on bronchodilators, IV diuretics. The patient is seen today 11/09/2021 in follow-up on the regular medical floor. He is awake and alert. Smiling and interactive today. Sitting up in a chair at the bedside. Down to 6 L high flow nasal cannula. He continues to diurese well. Remains in a -1.2 balance. Current weight 116.8 kg. He is continued on bronchodilators. Lovenox for DVT prophylaxis. Objective - Vital Signs Vital signs: Vital Signs Temp 98.6 F 11/09/21 11:38 Pulse 76 11/09/21 11:38 Resp 22 11/09/21 11:38 BP 119/63 11/09/21 11:38 Pulse Ox 90 L 11/09/21 11:38 Intake & Output 11/08/21 11/09/21 11/09/21 18:59 06:59 18:59 Intake Total 975 100 474 Output Total 2100 1300 Balance -1125 -1200 474 Weight 116.8 kg Intake: Oral 975 100 474 Output: Urine 2100 1300 Coude 300 Other: Voiding Method Indwelling Catheter Indwelling Catheter # Voids 1 - Exam GENERAL EXAM: Alert, interactive, very pleasant 45-year-old Down syndrome gentleman, on 6 L high flow nasal cannula, comfortable in no apparent distress. HEAD: Normocephalic. EYES: Normal reaction of pupils, equal size. NOSE: Clear with pink turbinates. THROAT: No erythema or exudates. NECK: No masses, no JVD. CHEST: No chest wall deformity. LUNGS: Equal air entry with bibasilar crackles CVS: S1 and S2 normal with no audible murmur, regular rhythm. ABDOMEN: No hepatosplenomegaly, normal bowel sounds, no guarding or rigidity. SPINE: No scoliosis or deformity SKIN: No rashes CENTRAL NERVOUS SYSTEM: No focal deficits, tone is normal in all 4 extremities. EXTREMITIES: There is 1 plus peripheral edema. No clubbing, no cyanosis. Peripheral pulses are intact. - Labs CBC & Chem 7: 11/09/21 05:58 11/09/21 05:58 Labs: Abnormal Lab Results - Last 24 Hours (Table) 11/09/21 11/09/21 Range/Units 05:58 05:58 Hct 54.5 H (39.0-53.0) % MCHC 30.0 L (31.0-37.0) g/dL RDW 18.6 H (11.5-15.5) % Chloride 93 L (98-107) mmol/L Carbon Dioxide 39 H (22-30) mmol/L Creatinine 0.58 L (0.66-1.25) mg/dL Glucose 104 H (74-99) mg/dL Microbiology - Last 24 Hours (Table) 11/06/21 20:52 Blood Culture - Preliminary Blood No Growth after 48 hours Assessment and Plan Assessment: 1 Acute hypoxemic respiratory failure secondary to suspected aspiration pneumonia, diastolic congestive heart failure and obesity/hypoventilation syndrome. CoVID screen negative. He is currently on 10 L high flow nasal cannula. Doing well and interactive. He remains on IV diuretics. He remains in a negative balance. Follow-up computed tomography scan of the chest on 11/06/2021 continues to show bilateral diffuse mild to moderate patchy opacities, greater on the right. Follow-up chest x-ray 11/08/2021 continues to show basilar atelectasis versus scarring. No pneumothorax. No pleural effusion. He remains in a negative balance. Down to 6 L nasal cannula. 2 History of Down syndrome 3 History of hyperlipidemia 4 History of gastroesophageal reflux disease 5 Obstructive sleep apnea, intolerant to CPAP 6 Obesity/hypoventilation syndrome Plan: The patient was seen and evaluated Down to 6 L high flow nasal cannula Titrate down the FiO2 as tolerated Aspiration precautions We will continue to follow I, the cosigning physician, performed a history & physical examination of the patient. Lungs sounds with bibasilar crackles. Maintaining O2 saturations in the 90s on 6 L high flow nasal cannula. I discussed the assessment and plan of care with my nurse practitioner, Roxana. I attest to the above note as dictated by her.
[2021-11-09] MEDS: TAMSULOSIN 0.4 MG CAP.ER.24H PO SCH (17:15)
--- NOTE | 2021-11-10 03:25 | P.PN ---
Subjective Progress Note Date: 11/09/21 This is a 45-year-old male who was recently admitted with respiratory failure from aspiration pneumonia with pulmonary following closely. Patient is being closely monitored and maintained on IV lasix and will continue. Patient also continues on breathing inhalational treatments. Patient was on 15 L HF this morning and nursing staff working on weaning FI02 as tolerated. Currently maintained on 10L HF and oxygen saturation is 90%. Patient is sitting up in the chair and denies any worsening shortness of breath. Patient is not currently on any antibiotics. Patient is afebrile. Kidney functions and electrolytes being monitored closely as patient remains on IV lasix. Will order repeat labs and chest xray for the am. 11/08/2021 Patient is seen in follow-up this morning and continues on High flow oxygen via NC and staff psychologist working on weaning FI02 as tolerated. Patient is currently maintained on 8L HF. Patient is also maintained on IV lasix every 8 hours and will continue. Chest xray viewed personally by me shows continued patchy densities in bilateral lung colon similar to previous exam to correlate for pneumonia versus atelectasis or scarring. Recommend using Bipap from 8pm to 8am if patient tolerates as well. Patient is diuresing well and discussed with nursing staff about strict intake and output. Case management following and will consult social work if ECF is being planned. Will continue to monitor closely and repeat am labs. 11/09/2021 Patient is seen and evaluated in follow-up today and continues on 6L via NC and continuing to wean as tolerated. Patient is maintained on breathing inhalational treatments and will continue. Recommend to continue with IV lasix and monitor kidney functions and electrolytes closely. Patient mother at the bedside and social work consulted as she would like for patient to go to rehab for strength and mobility and close monitoring of respiratory status. Patient will need oxygen on discharge. Patient continues with indwelling hinds for strict intake and output. Patient denies worsening shortness of breath. Patient is tolerating diet and no reported nausea or vomiting noted. Patient is afebrile. PT/OT following. Labs: WBC is 6.9, hemoglobin is 16.3, platelets are 158, sodium is 139, potassium is 4.3, BUN is 15, creatinine is 0.58, calcium is 8.5 Review of systems: Constitutional: No reports of fatigue, fever, or chills Cardiovascular: No reports of chest pain or palpitations Respiratory: No reports of worsening shortness of breath GI: No reports of nausea, vomiting, or diarrhea : No reports of dysuria or retention Neurovascular: No reports of weakness or numbness All medications have been reviewed Active Medications Acetaminophen (Acetaminophen Tab 325 Mg Tab) 650 mg PO Q6HR PRN PRN Reason: Mild Pain or Fever > 100.5 Last Admin: 10/29/21 19:57 Dose: 650 mg Documented by: Hydrocodone Bitart/Acetaminophen (Hydrocodone/Apap 7.5-325mg 1 Each Tab) 1 each PO Q6HR PRN PRN Reason: Moderate to Severe Pain Albuterol/Ipratropium (Ipratropium-Albuterol 3 Ml Neb) 3 ml INHALATION RT-QID [facility] Last Admin: 11/09/21 15:40 Dose: 3 ml Documented by: Atorvastatin Calcium (Atorvastatin 40 Mg Tab) 40 mg PO DAILY [facility] Last Admin: 11/09/21 09:38 Dose: 40 mg Documented by: Enoxaparin Sodium (Enoxaparin 40 Mg/0.4 Ml Syringe) 40 mg SQ DAILY [facility] [place] Last Admin: 11/09/21 09:37 Dose: 40 mg Documented by: Famotidine (Famotidine 20 Mg Tab) 20 mg PO BID [facility] Last Admin: 11/09/21 09:38 Dose: 20 mg Documented by: Furosemide (Furosemide 10 Mg/Ml 4 Ml Vial) 40 mg IV Q8HR [facility] Last Admin: 11/09/21 09:40 Dose: 40 mg Documented by: Sodium Chloride (Saline 0.9%) 500 mls @ 20 mls/hr IV .Q24H [facility] Last Admin: 11/09/21 13:51 Dose: Not Given Documented by: Miscellaneous Information (Potassium Replacement Protocol 1 Each [facility]) 1 each MISCELLANE DAILY PRN; Protocol PRN Reason: Per Protocol Naloxone HCl (Naloxone 0.4 Mg/Ml 1 Ml Vial) 0.2 mg IV Q2M PRN PRN Reason: Opioid Reversal Ondansetron HCl (Ondansetron 4 Mg/2 Ml Vial) 4 mg IVP Q4HR PRN PRN Reason: Nausea And Vomiting Last Admin: 10/26/21 14:04 Dose: 4 mg Documented by: Potassium Chloride (Potassium Chloride Er 20 Meq Tab.Er) 20 meq PO DAILY [facility] Last Admin: 11/09/21 09:40 Dose: 20 meq Documented by: Sodium Chloride (Sodium Chloride 0.65% Nasal Glenvil 44 Ml Btl) 2 spray NASAL QID PRN PRN Reason: Dry Nasal Passages Last Admin: 11/07/21 21:24 Dose: 2 spray Documented by: Tamsulosin HCl (Tamsulosin 0.4 Mg Cap.Er.24h) 0.4 mg PO PC-[id number] [facility] Physical Exam: Gen: This is a 45-year-old male who is awake, alert and oriented 2-3, well- developed, well-nourished. Temp is 98.7 F, pulse is 73, respirations are 22, blood pressure is 104/67, oxygen saturation is 96% on 6L HF HEENT: Head is atraumatic, normocephalic. Pupils equal, round. Sclerae is anicteric. NECK: Supple. No JVD. No lymphadenopathy. No thyromegaly. LUNGS: Breath sounds diminished with some mild scattered rhonchi noted . No intercostal retractions. HEART: S1, S2 are muffled ABDOMEN: Soft. obese. Bowel sounds are present. No masses. No tenderness. EXTREMITIES: No pedal edema. No calf tenderness. NEUROLOGICAL: Patient is awake, alert and oriented 2-3, no focal deficits . Assessment: shortness of breath, possibly multi-factorial with some fluid overload with congestive heart failure acute exacerbation, acute on chronic diastolic dysfunction, aspiration pneumonia as well as obesity hypoventilation syndrome Acute hypoxic respiratory failure history of obstructive sleep apnea, does not tolerate CPAP Down syndrome GERD Nausea, vomiting, possible respiratory alkalosis, improved History of aspiration pneumonia Polycythemia hypokalemia, improved hyponatremia, improved Obesity with a body mass index of 43.5 full code Plan: Recommend to continue with current medications, management and symptomatic treatment. Recommend to continue with IV lasix every 8 hours and will repeat am labs. Strict intake and output and continue with indwelling hinds catheter for now.. Will start flomax and trial void on discharge. Pulmonary following closely. Patient also continues on breathing inhalational treatments and will continue. Recommend to continue with aspiration precautions and supervision with meals. staff psychologist continuing to monitor respiratory status closely and wean FI02 as tolerated. Patient is down to 6L HF with oxygen saturations above 90%. Discussed with respiratory staff about bipap and recommend using 8pm to 8am if patient tolerates. Patient was unable to tolerate the bipap mask. Family at the bedside and agreeable to ECF with social work following and being planned. Due to multiple complex medical issues prognosis is guarded. Further recommendations to follow based on the clinical course of the patient. Possible discharge in 24-48 hours. Objective - Vital Signs Vital signs: Vital Signs Temp 98.6 F 11/09/21 11:38 Pulse 76 11/09/21 11:38 Resp 22 11/09/21 11:38 BP 119/63 11/09/21 11:38 Pulse Ox 90 L 11/09/21 11:38 Intake & Output 11/08/21 11/09/21 11/09/21 18:59 06:59 18:59 Intake Total 975 100 474 Output Total 2100 1300 Balance -1125 -1200 474 Weight 116.8 kg Intake: Oral 975 100 474 Output: Urine 2100 1300 Coude 300 Other: Voiding Method Indwelling Catheter Indwelling Catheter # Voids 1 - Labs CBC & Chem 7: 11/09/21 05:58 11/09/21 05:58 Labs: Abnormal Lab Results - Last 24 Hours (Table) 11/09/21 11/09/21 Range/Units 05:58 05:58 Hct 54.5 H (39.0-53.0) % MCHC 30.0 L (31.0-37.0) g/dL RDW 18.6 H (11.5-15.5) % Chloride 93 L (98-107) mmol/L Carbon Dioxide 39 H (22-30) mmol/L Creatinine 0.58 L (0.66-1.25) mg/dL Glucose 104 H (74-99) mg/dL Microbiology - Last 24 Hours (Table) 11/06/21 20:52 Blood Culture - Preliminary Blood No Growth after 48 hours
[2021-11-10 08:03] LABS: African American GFR (CKD) >90 (>60 ml/min/1.73 sqM); Blood Urea Nitrogen 16 mg/dL (9-20); Calcium 8.8 mg/dL (8.4-10.2); Chloride 91 mmol/L (98-107); Glucose 122 mg/dL (74-99); Non-African American GFR(CKD) >90 (>60 ml/min/1.73 sqM); Potassium 3.8 mmol/L (3.5-5.1); Sodium 137 mmol/L (137-145)
[2021-11-10 08:10] LABS: Anion Gap 4 mmol/L
[2021-11-10 08:14] LABS: Carbon Dioxide 42 mmol/L (22-30)
[2021-11-10 08:18] LABS: Anisocytosis Slight; Basophils # (A) 0.1 k/uL (0-0.2); Basophils % (A) 1 %; Eosinophils # (A) 0.2 k/uL (0-0.7); Eosinophils % (A) 2 %; HGB 16.4 gm/dL (13.0-17.5); Hypochromasia Marked; Lymphocytes % (A) 28 %; MCH 28.4 pg (25.0-35.0); MCHC 30.3 g/dL (31.0-37.0); MCV 93.7 fL (80.0-100.0); Monocytes # (A) 0.4 k/uL (0-1.0); Monocytes % (A) 6 %; Neutrophils # (A) 4.3 k/uL (1.3-7.7); Neutrophils % (A) 60 %; Platelet Count 159 k/uL (150-450); RBC 5.77 m/uL (4.30-5.90); RDW 18.8 % (11.5-15.5); WBC 7.2 k/uL (3.8-10.6)
--- NOTE | 2021-11-10 09:01 | XR ---
EXAMINATION TYPE: XR chest 1V portable DATE OF EXAM: 11/10/2021 COMPARISON: 11/08/2021 HISTORY: Shortness of breath TECHNIQUE: Single frontal view of the chest is obtained. FINDINGS: Right-sided PICC line seen and there are patchy interstitial and perihilar infiltrate stab le. No sizable pleural effusion or pneumothorax. Osseous density adjacent to the right likely chronic . IMPRESSION: Stable patchy bilateral areas of infiltrate.
[2021-11-10] MEDS: ATORVASTATIN 40 MG TAB PO SCH (09:26)
[2021-11-10] MEDS: FAMOTIDINE 20 MG TAB PO SCH ×2 (09:26→20:04)
[2021-11-10] MEDS: TAMSULOSIN 0.4 MG CAP.ER.24H PO SCH (09:26)
[2021-11-10] MEDS: FUROSEMIDE 10 MG/ML 4 ML VIAL IV SCH ×3 (09:26→23:11)
[2021-11-10] MEDS: POTASSIUM CHLORIDE ER 20 MEQ TAB.ER PO SCH (09:26)
[2021-11-10] MEDS: ENOXAPARIN 40 MG/0.4 ML SYRINGE SQ SCH (09:26)
[2021-11-10] MEDS: IPRATROPIUM-ALBUTEROL 3 ML NEB INHALATION SCH ×4 (10:44→19:20)
--- NOTE | 2021-11-10 13:13 | P.PN ---
Subjective Progress Note Date: 11/10/21 This is a pleasant 45-year-old gentleman with a known history of Down syndrome, hyperlipidemia, obstructive sleep apnea but intolerant to CPAP, gastroesophageal reflux disease. He has a poor historian. He was brought into the emergency room yesterday after his family found him to be short of breath with cough and swelling of the lower extremities. He is quite hypoxic on arrival by EMS and was placed on nonrebreather mass. His x-ray reveals evidence of cardiomegaly with diffuse interstitial edema and basilar infiltrates. EKG reveals normal sinus rhythm without acute ST or T wave abnormalities. White count 6.9. Hemoglobin 17.1. Sodium 134. Creatinine 0.65. Lactic acid 1.5. AST 93. ALT 70. ProBNP 2470. Troponin 0.025. Chavira virus by PCR not detected. He was initiated on IV diuretics, antibiotics, bronchodilators and steroids. He is seen today in consultation in the emergency department. He is currently sitting up in a stretcher. Awake and alert in no acute distress. He is requiring 15 L high flow nasal cannula to maintain O2 saturation in the 90s. He's been afebrile. Hemodynamically stable. So far he is diuresed 1300 ML's. Weight 127 kg. On 10/19/2021 patient seen in follow-up on medical surgical floor, this morning his breathing was significantly labored, rapid response team was called, and patient was placed on BiPAP support with pressures of 12 and 5 and FiO2 100%. He continues on IV diuretics, he is currently on Lasix 40 mg every 12 hours, he is diuresing quite extensively, and he is currently in negative 5.3 L net fluid balance over the last 24 hours, lung sounds reveal diffuse crackles and diminished breath sounds, with slightly better aeration at the left lung. Bose catheter is in, and draining large amount of clear yellow urine, patient is aw jemal and alert, he is tolerating BiPAP support quite well, his been afebrile, no complaints of chest pain, his chest x-ray today shows stable bilateral infiltrates and pleural effusion. His pro calcitonin level was negative his antibiotics were discontinued, steroids have been discontinued, patient has been started on nebulized treatments. BMP results have been reviewed showing sodium of 143, potassium is 4.3, chloride is 94, CO2 is 39, BUN of 14, creatinine 0.7. On 10/20/2021 patient seen in follow-up on medical surgical floor. His breathing has significantly improved with diuresis, he is currently off BiPAP support, and on 15 L per high flow nasal cannula, his pulse ox is 94%, breathing very comfortably, lung sounds are diminished, without rales or wheezes, however patient is a shallow breather, he needs encouragement to take deep breaths and cough. No coughing noted, his been afebrile, we added Zosyn for his history of aspiration related to his fast eating habits. However his pro calcitonin level has been negative, but in view of his hypoxia we will cover him with Zosyn empir ically. He is in -3470 mL net fluid balance over the last 24 hours, lower extremity edema is improving, he remains on IV Lasix at 40 mg every 12 hours, he is on DuoNeb nebulized treatments, he is on Pepcid. We'll add Lovenox for DVT prophylaxis, today's labs have been reviewed showing white blood cell count of 9.2, hemoglobin of 16.2, sodium is 140, potassium is 4.1, chloride is 89, CO2 is 38, BUN of 13, creatinine 0.8. No nausea or vomiting, no diarrhea. He is feeling hungry, he would like to eat Reevaluated today on 10/21/21, patient is back on BiPAP today. And he is on the percent FiO2 feeling better breathing easier, but had a bit of a setback and requiring more FiO2 to maintain adequate oxygenation. Patient remains on diuretics, remains on antibiotics empirically, furosemide is at 40 mg IV push every 12 hours. Patient is marginal at best. He is not a great historian but he does not seem to be in distress on BiPAP. Labs today showed BNP level of 265, his blood sugar was 180. WBC count is 9.4. On 10/22/2021 patient seen in follow-up on medical surgical floor. He is cu rrently on BiPAP of 12 and 500% FiO2, his pulse ox is 95-97%, and his FiO2 will be cut back to 80%, patient has been coming off the BiPAP on 15 L high flow to it however she quickly desaturates, and has to return to BiPAP, otherwise he is breathing comfortably, his lung sounds are diminished, I did not appreciate any crackles or wheezing. He remains on IV Lasix 40 mg every 12 hours, And he is in negative 4.6 L net fluid balance over the last 24 hours, lower extremity edema is improving, yesterday chest x-ray showing interval decrease in bilateral airspace and interstitial opacities. On 10/23/2021 patient seen in follow-up on medical surgical floor. Earlier today he was on BiPAP support, with pressures of 12 and 5 and FiO2 of 100%, however he started vomiting, BiPAP was removed, patient was placed on Airvo, he was given a dose of Reglan, rapid response team was called, abdominal x-ray was obtained, showing nonspecific abdomen. he denies any abdominal pain, abdomen is soft, he did have a bowel movement yesterday. Chest x-ray showed patchy perihilar and basilar infiltrates, without significant change. Patient has been extensively diuresed, he is in -2.6 L net fluid balance over the last 24 hours. Resolved volume contraction alkalosis, his CO2 is up to 41, sodium was 135, pot assium 3.8, chloride is 86, B1 is 14 creatinine 0.6. Blood gas showed pO2 of 77, pCO2 of 90, pH is 7.35, consistent with chronic hypercapnic respiratory failure. D-dimer was not significantly elevated only 0.82, low stemming Doppler showed no evidence of DVT. No cough, no chest pain, no hemoptysis. The patient is suspected to be aspirating, and she has been on Zosyn for last 48 hours, today's labs show normal white count of 7.1, hemoglobin 16.3 proBNP level was about 265, and this was a significantly improved value from admission which was 2470 Reevaluated today on 10/24/21, patient is now in the ICU, placed back on BiPAP 16/800%, patient was noted to be placed on non-rebreather mask and airvo last night, and the patient is noted to be a bit lethargic but arousable. I recommended immediate placement on BiPAP, and this was done. His CT angiogram of the chest done yesterday and no evidence of pulmonary embolism as expected however it did show bilateral infiltrates, and I'm still suspicious that the patient is developing aspiration pneumonia as he did in the past. Patient does have a chronic history of aspiration pneumonia. WBC count today is 5.5 hemoglobin is 15.8. Normal basic metabolic profile is normal renal profile is normal bicarb is 41. Patient remains on updrafts, is also on Lovenox extremely milligrams twice a day and I will cut it down to 40 mg subcu daily remains on methylprednisolone, and he is also on Zosyn. Reevaluated today on 10/25/21, remains in the ICU, sitting at a bedside chair, remains on BiPAP, he is on 100% FiO2, IPAP of 16 and EPAP of 8, patient seems to be comfortable and he is not in distress. I recommended tapering down his FiO2 however the patient is to stay on BiPAP, and is to stay in the ICU for today. Chest x-ray continues show by basilar airspace disease and atelectasis. CBC is relatively normal, basic metabolic profile is normal bicarb is 39. ABG prior to transferring the patient to the ICU on BiPAP showed a pO2 of 54 pCO2 95 pH of 7.33 and this was 2 days ago. 10/26/2021, the patient is being seen in follow-up in intensive care unit. 45-year-old male patient with known history of Down syndrome, currently on a BiPAP for respiratory support due to palpitations of CHF and possible aspiration. Repeat chest x-ray was done today and it shows again persistent bilateral pulmonary infiltrates in the lower lung colon. Mediastinum is less wide compared to yesterday. There may be some improvement in the volume status. There is no significant cardiomegaly on today's chest x-ray. Meanwhile, the patient's is currently off the BiPAP. He is using Airvo at 60 L with an FiO2 of 90% in addition to 100% nonrebreather facemask and his current pulse ox is in the order of 85%. His current cardiac rhythm is sinus. His fluid balance over the past 24 hours has been +185 mL. The patient however is producing urine outp ut and the urine output is in order of 25-30 mL an hour.. He is currently on IV Zosyn covering him for aspiration pneumonia. He is nothing by mouth for now and the patient is receiving PPN for nutritional support. On today's blood work, his white cell count of 5.6 with a hemoglobin of 17.9, platelets of 185, BUN of 22 with a creatinine of 0.6 and the sodium level is at 138. Meanwhile, his echo cardiogram that was done on 10/18/2021 showed a preserved LV function with an ejection fraction of 50-55%, no significant valvular abnormalities have been noted. The patient pro-calcitonin level and time of admission was 0.09. The patient's proBNP level at the time of admission was 2470 and it dropped down to 265. 10/27/2021, the patient is doing well. As the patient is awake and alert. The patient is off BiPAP and the patient is currently on Airvo 60 L of 5-70%. The patient is also utilizing on and off 100% nonrebreather facemask. The patient was started on a Lasix drip yesterday 5 mg an hour. The patient is also on Zaroxolyn 2.5 mg twice a day. Overall fluid balance is -4.2 L over the past 24 hours. Meanwhile, the patient feels less short of breath. Chest x-ray still showing pulmonary edema and bilateral pleural effusions. There may be some limited improvement in the volume status bilaterally. Clinically the patient is more stable and his breathing is not labored this point in time. In terms of his blood work, the patient's sodium level today is at 132 with a potassium level of 4.1 and serum bicarbonate 38. The blood gas showed a pH of 7.4 with a pCO2 of 73 and pO2 of 63 from yesterday and this was done and FiO2 of 70% while being on Airvo at 60 L. The white cell count today is at 7.5 with hemoglobin of 18 and platelet count of 177. In terms of treatment, the patient is still on Lasix drip and Zaroxolyn. The patient is also on empiric antibiotic coverage w ith IV Zosyn covering for aspiration pneumonia. In terms of his swallow, he is able to swallow. I think it's reasonable to advance his diet and discontinue TPN for now. The patient is seen today 10/28/2021 in follow-up on the regular medical floor. He is currently sitting up in a chair at the bedside. Awake and alert in no acute distress. He remains on AirVo high flow oxygen at 60 L and 75% FiO2. He did not require the BiPAP last night. Sodium 132. Potassium 3.1. Chloride 73. Bicarb 49. BUN 50. Creatinine 0.94. Glucose 146. He is currently on a Lasix drip at 5 mg per hour. He is also on Zaroxolyn. He is in -9 L balance the past 24-48 hours. Weight of 128 kg. He remains on antibiotics in the form of Zosyn. Lovenox for DVT prophylaxis. Continue bronchodilators. The patient is seen today 10/29/2021 in follow-up on the regular medical floor. He is awake and alert in no acute distress. Sitting up in a chair at the bedside. He remains on AirVo high flow oxygen at 60 L and 85% FiO2. He is maintaining O2 saturations in the low 90s. White count 8.1. Hemoglobin 18.6. Sodium 135. Potassium 2.3. Bicarb 38. Glucose 123. Creatinine 0.9. AST 41. ALT 41. He remains on Lovenox, bronchodilators. IV diuretics. Remains in a - 0.9 L balance. Antibiotics in the form of Zosyn. He has not utilized the BiPAP. The patient is seen today 11/01/2021 in follow-up on the regular medical floor. He is awake and alert in no acute distress. His mom is currently with him at the bedside. He is still requiring AirVo high flow oxygen at 50 liters and 70% FiO2 with O2 saturation of 90%. He is continued on DuoNeb inhalations, IV diuretics. Lovenox for DVT prophylaxis. He remains in a -2.3 L balance. Follow-up labs pending. The patient is seen today 11/02/2021 in follow-up on the regular medical floor. He is sitting up in bed. Awake and alert. Continues to require high flow AirVo at 50 L and 70% FiO2. Once the patient's oxygen was titrated down he did drop to 86%. Chest x-ray continues to show bilateral patchy airspace disease. No pneumothorax or pleural effusion. Right-sided PICC line remains in place. White count 7.2. Hemoglobin 17.0. Sodium 139. Potassium 3.2. Creatinine 0.7. AST 25. ALT 76. He is continued on DuoNeb inhalations. The patient seen today 11/03/2021 in follow-up on the regular medical floor. He is currently sitting up in a chair at the bedside. Awake and alert in no acute distress. Very interactive today. He is still requiring AirVo high flow oxygen at 45 L and 50% FiO2. Respiratory continues to work to titrate it down. He remains on DuoNeb inhalations 4 times a day. White count 5.8. Hemoglobin 17.5. Sodium 136. Potassium 3.4. Chloride 91. Bicarb 34. Creatinine 0.6. Pro- calcitonin 0.08. The patient is seen today 11/04/2021 in follow-up on the regular medical floor. He was found sitting up in the chair at the bedside without his oxygen on. His O2 saturation was at 59% on room air. He recovered nicely up into the low 90s on the 15 L high flow nasal cannula that he's been asked to keep on. The patient does have Down syndrome. He needs closer supervision. Sitting staff was notified. No new labs today. He is continued on DuoNeb inhalations. IV diuretics. Lovenox for DVT prophylaxis. The patient is seen today 11/07/2021 in follow-up on the regular medical floor. He is awake and alert. He is sitting up in a chair at the bedside. He is interactive. He is currently on 10 L high flow nasal cannula with O2 saturation at 92%. White count 7.7. Hemoglobin 16.4. Sodium 140. Potassium 4.0. Creatinine 0.6. Glucose 127. He is continued on Lasix 40 mg IV every 8 hours, DuoNeb inhalations. Lovenox for DVT prophylaxis. Remains in a negative balance. Follow up computed tomography scan of the chest reveals mild to moderate diffuse patchy opacities consistent with multifocal pneumonia. No pneumothorax. No pleural effusion. Right upper extremity PICC line remains in place. The patient is seen again today 11/08/2021 in follow-up on the regular medical floor. He is currently sitting up in a chair at the bedside. Awake and alert in no acute distress. He remains on 8 L high flow nasal cannula to maintain O2 saturations in the 90s. He is afebrile. Hemodynamically stable. Chest x-ray continues to suggest atelectasis versus scarring in the lung bases. No pne umothorax. No peripheral pleural effusion. White count 7.5. Hemoglobin 16.2. Sodium 136. Potassium 4.2. Bicarb 41. Creatinine 0.72. He is continued on bronchodilators, IV diuretics. The patient is seen today 11/09/2021 in follow-up on the regular medical floor. He is awake and alert. Smiling and interactive today. Sitting up in a chair at the bedside. Down to 6 L high flow nasal cannula. He continues to diurese well. Remains in a -1.2 balance. Current weight 116.8 kg. He is continued on bronchodilators. Lovenox for DVT prophylaxis. The patient is seen today 11/10/2021 in follow-up on the regular medical floor. He is happy because today is his birthday. He is up in a chair at the bedside. He is currently on 5 L high flow nasal cannula. Continues to need to be encouraged regarding breathing through 3 his nose. Chest x-ray continues to show some stable patchy bilateral infiltrates. White count 7.2. Hemoglobin 16.4. Sodium 137. Potassium 3.8. Bicarb 42. Creatinine 0.65. Glucose 122. Objective - Vital Signs Vital signs: Vital Signs Temp 98.7 F 11/10/21 12:34 Pulse 72 11/10/21 12:34 Resp 21 11/10/21 12:34 BP 103/43 11/10/21 12:34 Pulse Ox 93 L 11/10/21 12:34 Intake & Output 11/09/21 11/10/21 11/10/21 18:59 06:59 18:59 Intake Total 1285 360 Output Total 1351 1600 Balance -66 -1240 Weight 116.8 kg 115.8 kg Intake: Oral 1285 360 Output: Urine 1350 1600 Stool 1 Other: Voiding Method Indwelling Catheter Indwelling Catheter # Bowel Movements 1 - Exam GENERAL EXAM: Alert, interactive, very pleasant 45-year-old Down syndrome gentleman, on 4 L high flow nasal cannula, comfortable in no apparent distress. HEAD: Normocephalic. EYES: Normal reaction of pupils, equal size. NOSE: Clear with pink turbinates. THROAT: No erythema or exudates. NECK: No masses, no JVD. CHEST: No chest wall deformity. LUNGS: Equal air entry with bibasilar crackles CVS: S1 and S2 normal with no audible murmur, regular rhythm. ABDOMEN: No hepatosplenomegaly, normal bowel sounds, no guarding or rigidity. SPINE: No scoliosis or deformity SKIN: No rashes CENTRAL NERVOUS SYSTEM: No focal deficits, tone is normal in all 4 extremities. EXTREMITIES: There is 1 plus peripheral edema. No clubbing, no cyanosis. Peripheral pulses are intact. - Labs CBC & Chem 7: 11/10/21 07:22 11/10/21 07:22 Labs: Abnormal Lab Results - Last 24 Hours (Table) 11/10/21 11/10/21 Range/Units 07:22 07:22 Hct 54.0 H (39.0-53.0) % MCHC 30.3 L (31.0-37.0) g/dL RDW 18.8 H (11.5-15.5) % Chloride 91 L (98-107) mmol/L Carbon Dioxide 42 H* (22-30) mmol/L Creatinine 0.65 L (0.66-1.25) mg/dL Glucose 122 H (74-99) mg/dL Microbiology - Last 24 Hours (Table) 11/06/21 20:52 Blood Culture - Preliminary Blood No Growth after 72 hours Assessment and Plan Assessment: 1 Acute hypoxemic respiratory failure secondary to suspected aspiration pneumonia, diastolic congestive heart failure and obesity/hypoventilation syndrome. CoVID screen negative. He is currently on 10 L high flow nasal cannula. Doing well and interactive. He remains on IV diuretics. He remains in a negative balance. Follow-up computed tomography scan of the chest on 11/06/2021 continues to show bilateral diffuse mild to moderate patchy opacities , greater on the right. Follow-up chest x-ray 11/08/2021 continues to show basilar atelectasis versus scarring. No pneumothorax. No pleural effusion. He remains in a negative balance. Down to 4 L nasal cannula. 2 History of Down syndrome 3 History of hyperlipidemia 4 History of gastroesophageal reflux disease 5 Obstructive sleep apnea, intolerant to CPAP 6 Obesity/hypoventilation syndrome Plan: The patient was seen and evaluated Down to 4 L high flow nasal cannula He'll need home oxygen Home once cleared by medicine I, the cosigning physician, performed a history & physical examination of the patient. Lungs sounds with bibasilar crackles. Maintaining O2 saturations in the 90s on 4 L high flow nasal cannula. I discussed the assessment and plan of care with my nurse practitioner, Roxana. I attest to the above note as dictated by her.
[2021-11-10] MEDS: SODIUM CHLORIDE 0.9% 500 ML 500 ML IV SCH (16:03)
[2021-11-10] MEDS: SYMBICORT 160-4.5 MCG INHALER INHALATION SCH (19:20)
[2021-11-11 06:41] LABS: Anisocytosis Slight; Basophils # (A) 0.1 k/uL (0-0.2); Basophils % (A) 1 %; Eosinophils # (A) 0.1 k/uL (0-0.7); Eosinophils % (A) 2 %; HGB 16.3 gm/dL (13.0-17.5); Hypochromasia Marked; Lymphocytes % (A) 27 %; MCHC 28.9 g/dL (31.0-37.0); MCV 93.3 fL (80.0-100.0); Monocytes # (A) 0.3 k/uL (0-1.0); Monocytes % (A) 5 %; Neutrophils # (A) 4.5 k/uL (1.3-7.7); Neutrophils % (A) 62 %; Platelet Count 156 k/uL (150-450); RBC 6.05 m/uL (4.30-5.90); RDW 18.9 % (11.5-15.5); WBC 7.3 k/uL (3.8-10.6)
[2021-11-11 06:47] LABS: HCT 56.4 % (39.0-53.0)
[2021-11-11 06:50] LABS: African American GFR (CKD) >90 (>60 ml/min/1.73 sqM); Anion Gap 4 mmol/L; Blood Urea Nitrogen 14 mg/dL (9-20); Calcium 8.7 mg/dL (8.4-10.2); Carbon Dioxide 38 mmol/L (22-30); Chloride 92 mmol/L (98-107); Glucose 143 mg/dL (74-99); Non-African American GFR(CKD) >90 (>60 ml/min/1.73 sqM); Potassium 3.7 mmol/L (3.5-5.1); Sodium 134 mmol/L (137-145)
--- NOTE | 2021-11-11 06:54 | XR ---
EXAMINATION TYPE: XR chest 1V portable DATE OF EXAM: 11/11/2021 COMPARISON: 11/10/2021 HISTORY: Shortness of breath TECHNIQUE: Single frontal view of the chest is obtained. FINDINGS: There has been no interval change in the predominant interstitial opacities in the lung ba ses bilaterally right greater than left. There is no large pleural effusion and no pneumothorax. Heart size is normal and the vasculature is n ot appear congested. There is no change in the right-sided PICC line. The osseous structures are intact IMPRESSION: No interval change in the bilateral lower lobe interstitial lung infiltrates.
--- NOTE | 2021-11-11 07:16 | P.PN ---
Subjective Progress Note Date: 11/10/21 This is a 45-year-old male who was recently admitted with respiratory failure from aspiration pneumonia with pulmonary following closely. Patient is being closely monitored and maintained on IV lasix and will continue. Patient also continues on breathing inhalational treatments. Patient was on 15 L HF this morning and nursing staff working on weaning FI02 as tolerated. Currently maintained on 10L HF and oxygen saturation is 90%. Patient is sitting up in the chair and denies any worsening shortness of breath. Patient is not currently on any antibiotics. Patient is afebrile. Kidney functions and electrolytes being monitored closely as patient remains on IV lasix. Will order repeat labs and chest xray for the am. 11/08/2021 Patient is seen in follow-up this morning and continues on High flow oxygen via NC and staff readiness officer working on weaning FI02 as tolerated. Patient is currently maintained on 8L HF. Patient is also maintained on IV lasix every 8 hours and will continue. Chest xray viewed personally by me shows continued patchy densities in bilateral lung colon similar to previous exam to correlate for pneumonia versus atelectasis or scarring. Recommend using Bipap from 8pm to 8am if patient tolerates as well. Patient is diuresing well and discussed with nursing staff about strict intake and output. Case management following and will consult social work if ECF is being planned. Will continue to monitor closely and repeat am labs. 11/09/2021 Patient is seen and evaluated in follow-up today and continues on 6L via NC and continuing to wean as tolerated. Patient is maintained on breathing inhalational treatments and will continue. Recommend to continue with IV lasix and monitor kidney functions and electrolytes closely. Patient mother at the bedside and social work consulted as she would like for patient to go to rehab for strength and mobility and close monitoring of respiratory status. Patient will need oxygen on discharge. Patient continues with indwelling hinds for strict intake and output. Patient denies worsening shortness of breath. Patient is tolerating diet and no reported nausea or vomiting noted. Patient is afebrile. PT/OT following. 11/10/2021 Patient is seen today in follow up and continues on 6 L via NC. Patient denies any worsening shortness of breath. Pulmonary following as well and continued on breathing inhalational treatment as well. Patient is working with physical therapy daily. Mother would like to take him home and continue with home care once stabilized and discharged. Will add symbicort BID and continue to wean FI02 as tolerated. REcommend to continue with IV lasix and monitor electrolytes and kidney functions closely. Chest xray shows stable patchy bilateral areas of infiltrate. Labs: WBC is 7.3, hemoglobin is 16.3, platelets are 156, sodium is 134, potassium is 3.7, BUN is 14, creatinine is 0.55, calcium is 8.7 Review of systems: Constitutional: No reports of fatigue, fever, or chills Cardiovascular: No reports of chest pain or palpitations Respiratory: No reports of worsening shortness of breath GI: No reports of nausea, vomiting, or diarrhea : No reports of dysuria or retention Neurovascular: No reports of weakness or numbness All medications have been reviewed Active Medications Acetaminophen (Acetaminophen Tab 325 Mg Tab) 650 mg PO Q6HR PRN PRN Reason: Mild Pain or Fever > 100.5 Last Admin: 10/29/21 19:57 Dose: 650 mg Documented by: Hydrocodone Bitart/Acetaminophen (Hydrocodone/Apap 7.5-325mg 1 Each Tab) 1 each PO Q6HR PRN PRN Reason: Moderate to Severe Pain Albuterol/Ipratropium (Ipratropium-Albuterol 3 Ml Neb) 3 ml INHALATION RT-QID [facility] Last Admin: 11/10/21 19:20 Dose: 3 ml Documented by: Atorvastatin Calcium (Atorvastatin 40 Mg Tab) 40 mg PO DAILY [facility] Last Admin: 11/10/21 09:26 Dose: 40 mg Documented by: Budesonide/Formoterol Fumarate (Symbicort 160-4.5 Mcg Inhaler) 2 puff INHALATION RT-BID [facility] Last Admin: 11/10/21 19:20 Dose: 2 puff Documented by: Enoxaparin Sodium (Enoxaparin 40 Mg/0.4 Ml Syringe) 40 mg SQ DAILY [facility] Last Admin: 11/10/21 09:26 Dose: 40 mg Documented by: Famotidine (Famotidine 20 Mg Tab) 20 mg PO BID [facility] Last Admin: 11/10/21 20:04 Dose: 20 mg Documented by: Furosemide (Furosemide 10 Mg/Ml 4 Ml Vial) 40 mg IV Q8HR [facility] Last Admin: 11/10/21 23:11 Dose: 40 mg Documented by: Sodium Chloride (Saline 0.9%) 500 mls @ 20 mls/hr IV .Q24H [facility] Last Admin: 11/10/21 16:03 Dose: Not Given Documented by: Miscellaneous Information (Potassium Replacement Protocol 1 Each Misc) 1 each MISCELLANE DAILY PRN; Protocol PRN Reason: Per Protocol Naloxone HCl (Naloxone 0.4 Mg/Ml 1 Ml Vial) 0.2 mg IV Q2M PRN PRN Reason: Opioid Reversal Ondansetron HCl (Ondansetron 4 Mg/2 Ml Vial) 4 mg IVP Q4HR PRN PRN Reason: Nausea And Vomiting Last Admin: 10/26/21 14:04 Dose: 4 mg Documented by: Potassium Chloride (Potassium Chloride Er 20 Meq Tab.Er) 20 meq PO DAILY [facility] Last Admin: 11/10/21 09:26 Dose: 20 meq Documented by: Sodium Chloride (Sodium Chloride 0.65% Nasal [place] 44 Ml Btl) 2 spray NASAL QID PRN PRN Reason: Dry Nasal Passages Last Admin: 11/07/21 21:24 Dose: 2 spray Documented by: Tamsulosin HCl (Tamsulosin 0.4 Mg Cap.Er.24h) 0.4 mg PO PC-BRKFST [facility] Last Admin: 11/10/21 09:26 Dose: 0.4 mg Documented by: Physical Exam: Gen: This is a 45-year-old male who is awake, alert and oriented 2-3, well- developed, well-nourished. Temp is 98.4 F, pulse is 81, respirations are 18, blood pressure is 108/72, oxygen saturation is 93% on 6L HF HEENT: Head is atraumatic, normocephalic. Pupils equal, round. Sclerae is anicteric. NECK: Supple. No JVD. No lymphadenopathy. No thyromegaly. LUNGS: Breath sounds diminished with some mild scattered rhonchi noted . No intercostal retractions. HEART: S1, S2 are muffled ABDOMEN: Soft. obese. Bowel sounds are present. No masses. No tenderness. EXTREMITIES: No pedal edema. No calf tenderness. NEUROLOGICAL: Patient is awake, alert and oriented 2-3, no focal deficits . Assessment: shortness of breath, possibly multi-factorial with some fluid overload with congestive heart failure acute exacerbation, acute on chronic diastolic dysfunc tion, aspiration pneumonia as well as obesity hypoventilation syndrome Acute hypoxic respiratory failure history of obstructive sleep apnea, does not tolerate CPAP Down syndrome GERD Nausea, vomiting, possible respiratory alkalosis, improved History of aspiration pneumonia Polycythemia hypokalemia, improved hyponatremia, improved Obesity with a body mass index of 43.5 full code Plan: Recommend to continue with current medications, management and symptomatic treatment. Recommend to continue with IV lasix every 8 hours and will repeat am labs. Strict intake and output and continue with indwelling hinds catheter for now. Pulmonary following closely. Patient also continues on breathing inhala tional treatments and will continue and will add symbicort BID. Recommend to continue with aspiration precautions and supervision with meals. staff readiness officer continuing to monitor respiratory status closely and wean FI02 as tolerated. Patient continues on 6L HF with oxygen saturations above 90%. Family at the bedside and would like to take the patient home with home care once stabilized and discharged. Case management following and working on home care. Due to multiple complex medical issues prognosis is guarded. Further recommendations to follow based on the clinical course of the patient. Objective - Vital Signs Vital signs: Vital Signs Temp 98.4 F 11/10/21 05:30 Pulse 81 11/10/21 05:30 Resp 18 11/10/21 05:30 BP 108/72 11/10/21 05:30 Pulse Ox 93 L 11/10/21 05:30 Intake & Output 11/09/21 11/10/21 11/10/21 18:59 06:59 18:59 Intake Total 1285 360 Output Total 1351 1600 Balance -66 -1240 Weight 116.8 kg 115.8 kg Intake: Oral 1285 360 Output: Urine 1350 1600 Stool 1 Other: Voiding Method Indwelling Catheter Indwelling Catheter # Bowel Movements 1 - Labs CBC & Chem 7: 11/11/21 06:23 11/11/21 06:23 Labs: Abnormal Lab Results - Last 24 Hours (Table) 11/10/21 11/10/21 Range/Units 07:22 07:22 Hct 54.0 H (39.0-53.0) % MCHC 30.3 L (31.0-37.0) g/dL RDW 18.8 H (11.5-15.5) % Chloride 91 L (98-107) mmol/L Carbon Dioxide 42 H* (22-30) mmol/L Creatinine 0.65 L (0.66-1.25) mg/dL Glucose 122 H (74-99) mg/dL Microbiology - Last 24 Hours (Table) 11/06/21 20:52 Blood Culture - Preliminary Blood No Growth after 72 hours
[2021-11-11] MEDS: IPRATROPIUM-ALBUTEROL 3 ML NEB INHALATION SCH ×4 (07:51→19:57)
[2021-11-11] MEDS: SYMBICORT 160-4.5 MCG INHALER INHALATION SCH ×2 (07:51→19:57)
[2021-11-11] MEDS: FAMOTIDINE 20 MG TAB PO SCH ×2 (08:24→20:56)
[2021-11-11] MEDS: POTASSIUM CHLORIDE ER 20 MEQ TAB.ER PO SCH (08:24)
[2021-11-11] MEDS: TAMSULOSIN 0.4 MG CAP.ER.24H PO SCH (08:24)
[2021-11-11] MEDS: ENOXAPARIN 40 MG/0.4 ML SYRINGE SQ SCH (08:24)
[2021-11-11] MEDS: FUROSEMIDE 10 MG/ML 4 ML VIAL IV SCH ×2 (08:24→16:44)
[2021-11-11] MEDS: ATORVASTATIN 40 MG TAB PO SCH (08:24)
--- NOTE | 2021-11-11 13:55 | P.PN ---
Subjective Progress Note Date: 11/11/21 This is a pleasant 45-year-old gentleman with a known history of Down syndrome, hyperlipidemia, obstructive sleep apnea but intolerant to CPAP, gastroesophageal reflux disease. He has a poor historian. He was brought into the emergency room yesterday after his family found him to be short of breath with cough and swelling of the lower extremities. He is quite hypoxic on arrival by EMS and was placed on nonrebreather mass. His x-ray reveals evidence of cardiomegaly with diffuse interstitial edema and basilar infiltrates. EKG reveals normal sinus rhythm without acute ST or T wave abnormalities. White count 6.9. Hemoglobin 17.1. Sodium 134. Creatinine 0.65. Lactic acid 1.5. AST 93. ALT 70. ProBNP 2470. Troponin 0.025. Chavira virus by PCR not detected. He was initiated on IV diuretics, antibiotics, bronchodilators and steroids. He is seen today in consultation in the emergency department. He is currently sitting up in a stretcher. Awake and alert in no acute distress. He is requiring 15 L high flow nasal cannula to maintain O2 saturation in the 90s. He's been afebrile. Hemodynamically stable. So far he is diuresed 1300 ML's. Weight 127 kg. On 10/19/2021 patient seen in follow-up on medical surgical floor, this morning his breathing was significantly labored, rapid response team was called, and patient was placed on BiPAP support with pressures of 12 and 5 and FiO2 100%. He continues on IV diuretics, he is currently on Lasix 40 mg every 12 hours, he is diuresing quite extensively, and he is currently in negative 5.3 L net fluid balance over the last 24 hours, lung sounds reveal diffuse crackles and diminished breath sounds, with slightly better aeration at the left lung. Bose catheter is in, and draining large amount of clear yellow urine, patient is aw jemal and alert, he is tolerating BiPAP support quite well, his been afebrile, no complaints of chest pain, his chest x-ray today shows stable bilateral infiltrates and pleural effusion. His pro calcitonin level was negative his antibiotics were discontinued, steroids have been discontinued, patient has been started on nebulized treatments. BMP results have been reviewed showing sodium of 143, potassium is 4.3, chloride is 94, CO2 is 39, BUN of 14, creatinine 0.7. On 10/20/2021 patient seen in follow-up on medical surgical floor. His breathing has significantly improved with diuresis, he is currently off BiPAP support, and on 15 L per high flow nasal cannula, his pulse ox is 94%, breathing very comfortably, lung sounds are diminished, without rales or wheezes, however patient is a shallow breather, he needs encouragement to take deep breaths and cough. No coughing noted, his been afebrile, we added Zosyn for his history of aspiration related to his fast eating habits. However his pro calcitonin level has been negative, but in view of his hypoxia we will cover him with Zosyn empir ically. He is in -3470 mL net fluid balance over the last 24 hours, lower extremity edema is improving, he remains on IV Lasix at 40 mg every 12 hours, he is on DuoNeb nebulized treatments, he is on Pepcid. We'll add Lovenox for DVT prophylaxis, today's labs have been reviewed showing white blood cell count of 9.2, hemoglobin of 16.2, sodium is 140, potassium is 4.1, chloride is 89, CO2 is 38, BUN of 13, creatinine 0.8. No nausea or vomiting, no diarrhea. He is feeling hungry, he would like to eat Reevaluated today on 10/21/21, patient is back on BiPAP today. And he is on the percent FiO2 feeling better breathing easier, but had a bit of a setback and requiring more FiO2 to maintain adequate oxygenation. Patient remains on diuretics, remains on antibiotics empirically, furosemide is at 40 mg IV push every 12 hours. Patient is marginal at best. He is not a great historian but he does not seem to be in distress on BiPAP. Labs today showed BNP level of 265, his blood sugar was 180. WBC count is 9.4. On 10/22/2021 patient seen in follow-up on medical surgical floor. He is cu rrently on BiPAP of 12 and 500% FiO2, his pulse ox is 95-97%, and his FiO2 will be cut back to 80%, patient has been coming off the BiPAP on 15 L high flow to it however she quickly desaturates, and has to return to BiPAP, otherwise he is breathing comfortably, his lung sounds are diminished, I did not appreciate any crackles or wheezing. He remains on IV Lasix 40 mg every 12 hours, And he is in negative 4.6 L net fluid balance over the last 24 hours, lower extremity edema is improving, yesterday chest x-ray showing interval decrease in bilateral airspace and interstitial opacities. On 10/23/2021 patient seen in follow-up on medical surgical floor. Earlier today he was on BiPAP support, with pressures of 12 and 5 and FiO2 of 100%, however he started vomiting, BiPAP was removed, patient was placed on Airvo, he was given a dose of Reglan, rapid response team was called, abdominal x-ray was obtained, showing nonspecific abdomen. he denies any abdominal pain, abdomen is soft, he did have a bowel movement yesterday. Chest x-ray showed patchy perihilar and basilar infiltrates, without significant change. Patient has been extensively diuresed, he is in -2.6 L net fluid balance over the last 24 hours. Resolved volume contraction alkalosis, his CO2 is up to 41, sodium was 135, pot assium 3.8, chloride is 86, B1 is 14 creatinine 0.6. Blood gas showed pO2 of 77, pCO2 of 90, pH is 7.35, consistent with chronic hypercapnic respiratory failure. D-dimer was not significantly elevated only 0.82, low stemming Doppler showed no evidence of DVT. No cough, no chest pain, no hemoptysis. The patient is suspected to be aspirating, and she has been on Zosyn for last 48 hours, today's labs show normal white count of 7.1, hemoglobin 16.3 proBNP level was about 265, and this was a significantly improved value from admission which was 2470 Reevaluated today on 10/24/21, patient is now in the ICU, placed back on BiPAP 16/800%, patient was noted to be placed on non-rebreather mask and airvo last night, and the patient is noted to be a bit lethargic but arousable. I recommended immediate placement on BiPAP, and this was done. His CT angiogram of the chest done yesterday and no evidence of pulmonary embolism as expected however it did show bilateral infiltrates, and I'm still suspicious that the patient is developing aspiration pneumonia as he did in the past. Patient does have a chronic history of aspiration pneumonia. WBC count today is 5.5 hemoglobin is 15.8. Normal basic metabolic profile is normal renal profile is normal bicarb is 41. Patient remains on updrafts, is also on Lovenox extremely milligrams twice a day and I will cut it down to 40 mg subcu daily remains on methylprednisolone, and he is also on Zosyn. Reevaluated today on 10/25/21, remains in the ICU, sitting at a bedside chair, remains on BiPAP, he is on 100% FiO2, IPAP of 16 and EPAP of 8, patient seems to be comfortable and he is not in distress. I recommended tapering down his FiO2 however the patient is to stay on BiPAP, and is to stay in the ICU for today. Chest x-ray continues show by basilar airspace disease and atelectasis. CBC is relatively normal, basic metabolic profile is normal bicarb is 39. ABG prior to transferring the patient to the ICU on BiPAP showed a pO2 of 54 pCO2 95 pH of 7.33 and this was 2 days ago. 10/26/2021, the patient is being seen in follow-up in intensive care unit. 45-year-old male patient with known history of Down syndrome, currently on a BiPAP for respiratory support due to palpitations of CHF and possible aspiration. Repeat chest x-ray was done today and it shows again persistent bilateral pulmonary infiltrates in the lower lung colon. Mediastinum is less wide compared to yesterday. There may be some improvement in the volume status. There is no significant cardiomegaly on today's chest x-ray. Meanwhile, the patient's is currently off the BiPAP. He is using Airvo at 60 L with an FiO2 of 90% in addition to 100% nonrebreather facemask and his current pulse ox is in the order of 85%. His current cardiac rhythm is sinus. His fluid balance over the past 24 hours has been +185 mL. The patient however is producing urine outp ut and the urine output is in order of 25-30 mL an hour.. He is currently on IV Zosyn covering him for aspiration pneumonia. He is nothing by mouth for now and the patient is receiving PPN for nutritional support. On today's blood work, his white cell count of 5.6 with a hemoglobin of 17.9, platelets of 185, BUN of 22 with a creatinine of 0.6 and the sodium level is at 138. Meanwhile, his echo cardiogram that was done on 10/18/2021 showed a preserved LV function with an ejection fraction of 50-55%, no significant valvular abnormalities have been noted. The patient pro-calcitonin level and time of admission was 0.09. The patient's proBNP level at the time of admission was 2470 and it dropped down to 265. 10/27/2021, the patient is doing well. As the patient is awake and alert. The patient is off BiPAP and the patient is currently on Airvo 60 L of 5-70%. The patient is also utilizing on and off 100% nonrebreather facemask. The patient was started on a Lasix drip yesterday 5 mg an hour. The patient is also on Zaroxolyn 2.5 mg twice a day. Overall fluid balance is -4.2 L over the past 24 hours. Meanwhile, the patient feels less short of breath. Chest x-ray still showing pulmonary edema and bilateral pleural effusions. There may be some limited improvement in the volume status bilaterally. Clinically the patient is more stable and his breathing is not labored this point in time. In terms of his blood work, the patient's sodium level today is at 132 with a potassium level of 4.1 and serum bicarbonate 38. The blood gas showed a pH of 7.4 with a pCO2 of 73 and pO2 of 63 from yesterday and this was done and FiO2 of 70% while being on Airvo at 60 L. The white cell count today is at 7.5 with hemoglobin of 18 and platelet count of 177. In terms of treatment, the patient is still on Lasix drip and Zaroxolyn. The patient is also on empiric antibiotic coverage w ith IV Zosyn covering for aspiration pneumonia. In terms of his swallow, he is able to swallow. I think it's reasonable to advance his diet and discontinue TPN for now. The patient is seen today 10/28/2021 in follow-up on the regular medical floor. He is currently sitting up in a chair at the bedside. Awake and alert in no acute distress. He remains on AirVo high flow oxygen at 60 L and 75% FiO2. He did not require the BiPAP last night. Sodium 132. Potassium 3.1. Chloride 73. Bicarb 49. BUN 50. Creatinine 0.94. Glucose 146. He is currently on a Lasix drip at 5 mg per hour. He is also on Zaroxolyn. He is in -9 L balance the past 24-48 hours. Weight of 128 kg. He remains on antibiotics in the form of Zosyn. Lovenox for DVT prophylaxis. Continue bronchodilators. The patient is seen today 10/29/2021 in follow-up on the regular medical floor. He is awake and alert in no acute distress. Sitting up in a chair at the bedside. He remains on AirVo high flow oxygen at 60 L and 85% FiO2. He is maintaining O2 saturations in the low 90s. White count 8.1. Hemoglobin 18.6. Sodium 135. Potassium 2.3. Bicarb 38. Glucose 123. Creatinine 0.9. AST 41. ALT 41. He remains on Lovenox, bronchodilators. IV diuretics. Remains in a - 0.9 L balance. Antibiotics in the form of Zosyn. He has not utilized the BiPAP. The patient is seen today 11/01/2021 in follow-up on the regular medical floor. He is awake and alert in no acute distress. His mom is currently with him at the bedside. He is still requiring AirVo high flow oxygen at 50 liters and 70% FiO2 with O2 saturation of 90%. He is continued on DuoNeb inhalations, IV diuretics. Lovenox for DVT prophylaxis. He remains in a -2.3 L balance. Follow-up labs pending. The patient is seen today 11/02/2021 in follow-up on the regular medical floor. He is sitting up in bed. Awake and alert. Continues to require high flow AirVo at 50 L and 70% FiO2. Once the patient's oxygen was titrated down he did drop to 86%. Chest x-ray continues to show bilateral patchy airspace disease. No pneumothorax or pleural effusion. Right-sided PICC line remains in place. White count 7.2. Hemoglobin 17.0. Sodium 139. Potassium 3.2. Creatinine 0.7. AST 25. ALT 76. He is continued on DuoNeb inhalations. The patient seen today 11/03/2021 in follow-up on the regular medical floor. He is currently sitting up in a chair at the bedside. Awake and alert in no acute distress. Very interactive today. He is still requiring AirVo high flow oxygen at 45 L and 50% FiO2. Respiratory continues to work to titrate it down. He remains on DuoNeb inhalations 4 times a day. White count 5.8. Hemoglobin 17.5. Sodium 136. Potassium 3.4. Chloride 91. Bicarb 34. Creatinine 0.6. Pro- calcitonin 0.08. The patient is seen today 11/04/2021 in follow-up on the regular medical floor. He was found sitting up in the chair at the bedside without his oxygen on. His O2 saturation was at 59% on room air. He recovered nicely up into the low 90s on the 15 L high flow nasal cannula that he's been asked to keep on. The patient does have Down syndrome. He needs closer supervision. Sitting staff was notified. No new labs today. He is continued on DuoNeb inhalations. IV diuretics. Lovenox for DVT prophylaxis. The patient is seen today 11/07/2021 in follow-up on the regular medical floor. He is awake and alert. He is sitting up in a chair at the bedside. He is interactive. He is currently on 10 L high flow nasal cannula with O2 saturation at 92%. White count 7.7. Hemoglobin 16.4. Sodium 140. Potassium 4.0. Creatinine 0.6. Glucose 127. He is continued on Lasix 40 mg IV every 8 hours, DuoNeb inhalations. Lovenox for DVT prophylaxis. Remains in a negative balance. Follow up computed tomography scan of the chest reveals mild to moderate diffuse patchy opacities consistent with multifocal pneumonia. No pneumothorax. No pleural effusion. Right upper extremity PICC line remains in place. The patient is seen again today 11/08/2021 in follow-up on the regular medical floor. He is currently sitting up in a chair at the bedside. Awake and alert in no acute distress. He remains on 8 L high flow nasal cannula to maintain O2 saturations in the 90s. He is afebrile. Hemodynamically stable. Chest x-ray continues to suggest atelectasis versus scarring in the lung bases. No pne umothorax. No peripheral pleural effusion. White count 7.5. Hemoglobin 16.2. Sodium 136. Potassium 4.2. Bicarb 41. Creatinine 0.72. He is continued on bronchodilators, IV diuretics. The patient is seen today 11/09/2021 in follow-up on the regular medical floor. He is awake and alert. Smiling and interactive today. Sitting up in a chair at the bedside. Down to 6 L high flow nasal cannula. He continues to diurese well. Remains in a -1.2 balance. Current weight 116.8 kg. He is continued on bronchodilators. Lovenox for DVT prophylaxis. The patient is seen today 11/10/2021 in follow-up on the regular medical floor. He is happy because today is his birthday. He is up in a chair at the bedside. He is currently on 5 L high flow nasal cannula. Continues to need to be encouraged regarding breathing through 3 his nose. Chest x-ray continues to show some stable patchy bilateral infiltrates. White count 7.2. Hemoglobin 16.4. Sodium 137. Potassium 3.8. Bicarb 42. Creatinine 0.65. Glucose 122. The patient is seen today 11/11/2021 in follow-up on the regular medical floor. He is currently sitting up in a chair at the bedside. Awake and alert in no acute distress. The patient is maintaining good O2 saturations in the mid 90s on 5 L high flow nasal cannula. Afebrile. Hemodynamically stable. Chest x-ray continues to show bilateral lower lobe interstitial infiltrates. No significant improvement. No worsening. Right-sided PICC line remains in place. Blood cultures reveal no growth. White count 7.3. Hemoglobin 16.3. Platelets 156. Sodium 134. Potassium 3.7. Creatinine 0.55. Bicarb 38. Glucose 143. He remains on Symbicort, DuoNeb inhalations, IV diuretics. Lovenox for DVT prophylaxis. He remains in a -1.2 L balance. His weight is 116.5 kg. Objective - Vital Signs Vital signs: Vital Signs Temp 97.7 F 11/11/21 11:50 Pulse 73 11/11/21 11:50 Resp 18 11/11/21 11:50 BP 95/67 11/11/21 11:50 Pulse Ox 97 11/11/21 11:50 Intake & Output 11/10/21 11/11/21 11/11/21 18:59 06:59 18:59 Intake Total 720 Output Total 401 1200 Balance 319 -1200 Weight 116.5 kg Intake: Oral 720 Output: Urine 400 1200 Stool 1 Other: Voiding Method Indwelling Catheter Indwelling Catheter - Exam GENERAL EXAM: Alert, interactive, very pleasant 45-year-old Down syndrome gentleman, on 5 L high flow nasal cannula, comfortable in no apparent distress. HEAD: Normocephalic. EYES: Normal reaction of pupils, equal size. NOSE: Clear with pink turbinates. THROAT: No erythema or exudates. NECK: No masses, no JVD. CHEST: No chest wall deformity. LUNGS: Equal air entry with bibasilar crackles CVS: S1 and S2 normal with no audible murmur, regular rhythm. ABDOMEN: No hepatosplenomegaly, normal bowel sounds, no guarding or rigidity. SPINE: No scoliosis or deformity SKIN: No rashes CENTRAL NERVOUS SYSTEM: No focal deficits, tone is normal in all 4 extremities. EXTREMITIES: There is 1 plus peripheral edema. No clubbing, no cyanosis. Peripheral pulses are intact. - Labs CBC & Chem 7: 11/11/21 06:23 11/11/21 06:23 Labs: Abnormal Lab Results - Last 24 Hours (Table) 11/11/21 11/11/21 Range/Units 06:23 06:23 RBC 6.05 H (4.30-5.90) m/uL Hct 56.4 H (39.0-53.0) % MCHC 28.9 L (31.0-37.0) g/dL RDW 18.9 H (11.5-15.5) % Sodium 134 L (137-145) mmol/L Chloride 92 L (98-107) mmol/L Carbon Dioxide 38 H (22-30) mmol/L Creatinine 0.55 L (0.66-1.25) mg/dL Glucose 143 H (74-99) mg/dL Microbiology - Last 24 Hours (Table) 11/06/21 20:52 Blood Culture - Preliminary Blood No Growth after 96 hours Assessment and Plan Assessment: 1 Acute hypoxemic respiratory failure secondary to suspected aspiration pneumonia, diastolic congestive heart failure and obesity/hypoventilation syndrome. CoVID screen negative. Doing well and interactive. He remains on IV diuretics. He remains in a negative balance. Follow-up computed tomography scan of the chest on 11/06/2021 continues to show bilateral diffuse mild to moderate patchy opacities, greater on the right. Follow-up chest x-ray 2021 continues to show basilar atelectasis versus scarring. No pneumothorax. No pleural effusion. Down to 5 L nasal cannula. 2 History of Down syndrome 3 History of hyperlipidemia 4 History of gastroesophageal reflux disease 5 Obstructive sleep apnea, intolerant to CPAP 6 Obesity/hypoventilation syndrome Plan: The patient was seen and evaluated Chest x-ray and labs reviewed He continues to diurese well Down to 5 L high flow nasal cannula He'll need home oxygen Home once cleared by medicine I, the cosigning physician, performed a history & physical examination of the patient. Lungs sounds with bibasilar crackles. Maintaining O2 saturations in the 90s on 5 L high flow nasal cannula. I discussed the assessment and plan of care with my nurse practitioner, Roxana. I attest to the above note as dictated by her.
[2021-11-11] MEDS: SODIUM CHLORIDE 0.9% 500 ML 500 ML IV SCH (16:45)
--- NOTE | 2021-11-11 20:39 | PN ---
PROGRESS NOTE DATE OF SERVICE: 11/11/2021 This 46-year-old gentleman admitted with shortness of breath which is multifactorial is being closely monitored. Patient is on IV diuretics. No chest pain. No palpitations. No fever. PHYSICAL EXAMINATION: Alert and oriented x2. Pulse 73, blood pressure 95/60, respiration 18, temperature 97 degrees, pulse ox 97% on 5 L. HEENT: Conjunctivae normal. NECK: No jugular venous distention. CARDIOVASCULAR: S1, S2 muffled. RESPIRATION: Breath sounds diminished at the bases. A few scattered rhonchi and crackles. ABDOMEN: Soft. LEGS: No edema. No swelling. NERVOUS SYSTEM: No focal deficit. LABS: Sodium 135. Creatinine 0.55. Other labs are noted. ASSESSMENT: 1. Shortness of breath, possibly multifactorial, with fluid overload with congestive heart failure, acute exacerbation, acute on chronic diastolic dysfunction, aspiration pneumonia as well as obesity hypoventilation syndrome. 2. Acute hypoxic respiratory failure. 3. History of obstructive sleep apnea. Does not tolerate CPAP. 4. Down's syndrome. 5. Gastroesophageal reflux disease. 6. Nausea and vomiting; possible respiratory alkalosis, improved. 7. History of aspiration pneumonia. 8. Polycythemia. 9. Hypokalemia, improved. 10.Hyponatremia, improved. 11.Obesity with body mass index of 43.5. 12.FULL CODE. RECOMMENDATIONS AND DISCUSSION: I recommend to continue current medications, continue with the monitoring, symptomatic treatment. Continue with the diuretics at this time. Repeat labs. Once oxygenation is titrated down, the patient will be ready for discharge, probably in the next 24 to 48 hours. Further recommendations to follow. MMODL / IJN: [id number] /
[2021-11-12] MEDS: FUROSEMIDE 10 MG/ML 4 ML VIAL IV SCH ×2 (02:23→09:18)
[2021-11-12 07:00] LABS: Anisocytosis Slight; Basophils # (A) 0.1 k/uL (0-0.2); Basophils % (A) 1 %; Eosinophils # (A) 0.1 k/uL (0-0.7); Eosinophils % (A) 2 %; HCT 53.3 % (39.0-53.0); HGB 16.3 gm/dL (13.0-17.5); Hypochromasia Marked; Lymphocytes # (A) 1.8 k/uL (1.0-4.8); Lymphocytes % (A) 26 %; MCH 28.4 pg (25.0-35.0); MCHC 30.5 g/dL (31.0-37.0); MCV 93.1 fL (80.0-100.0); Mean Platelet Volume 9.8; Monocytes # (A) 0.3 k/uL (0-1.0); Monocytes % (A) 5 %; Neutrophils # (A) 4.3 k/uL (1.3-7.7); Neutrophils % (A) 63 %; Platelet Count 155 k/uL (150-450); RBC 5.73 m/uL (4.30-5.90); RDW 19.3 % (11.5-15.5); WBC 6.9 k/uL (3.8-10.6)
[2021-11-12] MEDS: SYMBICORT 160-4.5 MCG INHALER INHALATION SCH ×2 (08:06→19:23)
[2021-11-12] MEDS: IPRATROPIUM-ALBUTEROL 3 ML NEB INHALATION SCH ×4 (08:06→19:22)
[2021-11-12 08:59] LABS: African American GFR (CKD) 129.3 (60.0-200.0); Anion Gap 11.1 mmol/L (10.00-18.00); BUN/Creat Ratio 20.57 Ratio (12.00-20.00); Blood Urea Nitrogen 14.4 mg/dL (9.0-27.0); Carbon Dioxide 36.9 mmol/L (20.0-27.5); Non-African American GFR(CKD) 111.6 (60.0-200.0); Potassium 3.8 mmol/L (3.5-5.5)
[2021-11-12] MEDS: POTASSIUM CHLORIDE ER 20 MEQ TAB.ER PO SCH (09:17)
[2021-11-12] MEDS: FAMOTIDINE 20 MG TAB PO SCH ×2 (09:17→19:33)
[2021-11-12] MEDS: ENOXAPARIN 40 MG/0.4 ML SYRINGE SQ SCH (09:17)
[2021-11-12] MEDS: TAMSULOSIN 0.4 MG CAP.ER.24H PO SCH (09:18)
[2021-11-12] MEDS: ATORVASTATIN 40 MG TAB PO SCH (09:18)
--- NOTE | 2021-11-12 15:07 | P.PN ---
Subjective Progress Note Date: 11/12/21 This is a pleasant 45-year-old gentleman with a known history of Down syndrome, hyperlipidemia, obstructive sleep apnea but intolerant to CPAP, gastroesophageal reflux disease. He has a poor historian. He was brought into the emergency room yesterday after his family found him to be short of breath with cough and swelling of the lower extremities. He is quite hypoxic on arrival by EMS and was placed on nonrebreather mass. His x-ray reveals evidence of cardiomegaly with diffuse interstitial edema and basilar infiltrates. EKG reveals normal sinus rhythm without acute ST or T wave abnormalities. White count 6.9. Hemoglobin 17.1. Sodium 134. Creatinine 0.65. Lactic acid 1.5. AST 93. ALT 70. ProBNP 2470. Troponin 0.025. Chavira virus by PCR not detected. He was initiated on IV diuretics, antibiotics, bronchodilators and steroids. He is seen today in consultation in the emergency department. He is currently sitting up in a stretcher. Awake and alert in no acute distress. He is requiring 15 L high flow nasal cannula to maintain O2 saturation in the 90s. He's been afebrile. Hemodynamically stable. So far he is diuresed 1300 ML's. Weight 127 kg. On 10/19/2021 patient seen in follow-up on medical surgical floor, this morning his breathing was significantly labored, rapid response team was called, and patient was placed on BiPAP support with pressures of 12 and 5 and FiO2 100%. He continues on IV diuretics, he is currently on Lasix 40 mg every 12 hours, he is diuresing quite extensively, and he is currently in negative 5.3 L net fluid balance over the last 24 hours, lung sounds reveal diffuse crackles and diminished breath sounds, with slightly better aeration at the left lung. Bose catheter is in, and draining large amount of clear yellow urine, patient is aw jemal and alert, he is tolerating BiPAP support quite well, his been afebrile, no complaints of chest pain, his chest x-ray today shows stable bilateral infiltrates and pleural effusion. His pro calcitonin level was negative his antibiotics were discontinued, steroids have been discontinued, patient has been started on nebulized treatments. BMP results have been reviewed showing sodium of 143, potassium is 4.3, chloride is 94, CO2 is 39, BUN of 14, creatinine 0.7. On 10/20/2021 patient seen in follow-up on medical surgical floor. His breathing has significantly improved with diuresis, he is currently off BiPAP support, and on 15 L per high flow nasal cannula, his pulse ox is 94%, breathing very comfortably, lung sounds are diminished, without rales or wheezes, however patient is a shallow breather, he needs encouragement to take deep breaths and cough. No coughing noted, his been afebrile, we added Zosyn for his history of aspiration related to his fast eating habits. However his pro calcitonin level has been negative, but in view of his hypoxia we will cover him with Zosyn empir ically. He is in -3470 mL net fluid balance over the last 24 hours, lower extremity edema is improving, he remains on IV Lasix at 40 mg every 12 hours, he is on DuoNeb nebulized treatments, he is on Pepcid. We'll add Lovenox for DVT prophylaxis, today's labs have been reviewed showing white blood cell count of 9.2, hemoglobin of 16.2, sodium is 140, potassium is 4.1, chloride is 89, CO2 is 38, BUN of 13, creatinine 0.8. No nausea or vomiting, no diarrhea. He is feeling hungry, he would like to eat On 10/22/2021 patient seen in follow-up on medical surgical floor. He is currently on BiPAP of 12 and 500% FiO2, his pulse ox is 95-97%, and his FiO2 will be cut back to 80%, patient has been coming off the BiPAP on 15 L high flow to it however she quickly desaturates, and has to return to BiPAP, otherwise he is breathing comfortably, his lung sounds are diminished, I did not appreciate a ny crackles or wheezing. He remains on IV Lasix 40 mg every 12 hours, And he is in negative 4.6 L net fluid balance over the last 24 hours, lower extremity edema is improving, yesterday chest x-ray showing interval decrease in bilateral airspace and interstitial opacities. On 10/23/2021 patient seen in follow-up on medical surgical floor. Earlier today he was on BiPAP support, with pressures of 12 and 5 and FiO2 of 100%, however he started vomiting, BiPAP was removed, patient was placed on Airvo, he was given a dose of Reglan, rapid response team was called, abdominal x-ray was obtained, showing nonspecific abdomen. he denies any abdominal pain, abdomen is soft, he did have a bowel movement yesterday. Chest x-ray showed patchy perihilar and basilar infiltrates, without significant change. Patient has been extensively diuresed, he is in -2.6 L net fluid balance over the last 24 hours. Resolved volume contraction alkalosis, his CO2 is up to 41, sodium was 135, potassium 3.8, chloride is 86, B1 is 14 creatinine 0.6. Blood gas showed pO2 of 77, pCO2 of 90, pH is 7.35, consistent with chronic hypercapnic respiratory failure. D-dimer was not significantly elevated only 0.82, low stemming Doppler showed no evidence of DVT. No cough, no chest pain, no hemoptysis. The patient is suspected to be aspirating, and she has been on Zosyn for last 48 hours, today's labs show normal white count of 7.1, hemoglobin 16.3 proBNP level was about 265, and this was a significantly improved value from admission which was 2470 On 11/05/2021 patient seen in follow-up on regular medical surgical floor, he sitting up in the recliner, breathing comfortably, lung sounds are clear, diminished at the bases, no rhonchi or wheezing, patient remains on 15 L per high flow nasal cannula, and his pulse ox is ranging between 90-98%, he is tolerating oral intake, no fever or chills, no complaints of chest discomfort, no hemoptysis.his most recent chest x-ray was from 11/02/2021 showing bilateral areas of airspace disease no evident pneumothorax or pleural effusion. he was never able to produce phlegm specimen for culture. His labs have been reviewed, his white blood cell count is within normal limits at 5.6, hemoglobin 17, sodium is 140, potassium is 3.2, chloride is 94, BUN is 9.2, creatinine 0.6, his last pro calcitonin from 11/02/2021 was 0.08. Currently not on any antibiotics, was previously on Zosyn On 11/06/2021 patient seen in follow-up on medical surgical floor, he sitting up the recliner, in no acute distress, breathing quite comfortably, however still remains on high flow oxygen at 15 L, denies any chest pain, no cough, lung sounds reveal diminished breath sounds with some minimal crackles, no rhonchi or wheezing, no phlegm production, vital signs have been stable his pulse ox is 93%, vital signs have been stable, no fever or chills, patient has completed his antibiotic course. He is currently off antibiotics, he was previously on Zosyn, he continues on oral dose of Lasix 40 mg once daily, his lower extremity edema and generalized edema have significantly improved. Today's labs have been reviewed, white blood cell count is 6.3, hemoglobin is 16.9, electrolytes are fairly unremarkable with sodium of 136, potassium 3.8, chloride is 97, CO2 35, BUN is 9, creatinine 0.59, his proBNP was within normal limits at 64, and his pro calcitonin level was repeated on yesterday's labs and was again negative at 0.07. Follow-up chest x-ray today shows patchy densities in the bilateral lungs, low lung volumes. On 11/12/2021 patient seen in follow-up on medical surgical floor. He is awake and alert, in no acute distress, is currently on 6 L of oxygen, his pulse ox is 93%, his been afebrile, hemodynamically has been stable. Significant pulmonary recliner, denies any worsening dyspnea or cough, denies any chest discomfort, he is in the good mood, he is talkative. His last chest x-ray from 11/11/2021 showed interstitial opacities at the lung bases bilaterally right greater than left. No fever or chills. Patient has completed the antibiotics, worsening cough or chest congestion. Lung sounds reveal diminished breath sounds and bilateral bases, no rhonchi or wheezing. Patient has been diuresed, and his generalized edema has significantly improved. He is currently on Lasix 40 mg every 8 hours. He is in -2.1 L net fluid balance over the last 24 hours. Indwelling catheter remains in place for accurate intake and output. Today's labs have been reviewed his white blood cell count is 6.9, hemoglobin is 16.3, sodium is 139, potassium is 3.8, chloride is 91, CO2 is 36, B1 of 14.4, and creatinine of 0.7. Patient has a good appetite, no nausea vomiting or diarrhea. He is tolerating a regular diet Objective - Vital Signs Vital signs: Vital Signs Temp 97.8 F 11/12/21 11:20 Pulse 80 11/12/21 11:42 Resp 20 11/12/21 11:20 BP 125/72 11/12/21 11:20 Pulse Ox 93 L 11/12/21 11:20 Intake & Output 11/11/21 11/12/21 11/12/21 18:59 06:59 18:59 Intake Total 474 240 Output Total 700 2400 Balance -700 474 -2160 Weight 116.1 kg Intake: Oral 474 240 Output: Urine 700 2400 Coude 1000 Other: Voiding Method Indwelling Catheter Indwelling Catheter - Exam GENERAL EXAM: Alert, very pleasant, 45-year-old male with typical features of Down syndrome on currently sitting up in the recliner, currently on 6 L of oxygen and the pulse ox of 90-98%. HEAD: Normocephalic/atraumatic. EYES: Normal reaction of pupils, equal size. Conjunctiva pink, sclera white. NOSE: Clear with pink turbinates. THROAT: No erythema or exudates. NECK: No masses, no JVD, no thyroid enlargement, no adenopathy. CHEST: No chest wall deformity. Symmetrical expansion. LUNGS: Equal air entry with diminished breath sounds , no crackles or wheezes CVS: Regular rate and rhythm, normal S1 and S2, no gallops, no murmurs, no rubs ABDOMEN: Soft, nontender. No hepatosplenomegaly, normal bowel sounds, no g uarding or rigidity. EXTREMITIES: No clubbing, no lower extremity edema no cyanosis, 2+ pulses and u pper and lower extremities. MUSCULOSKELETAL: Muscle strength and tone normal. SPINE: No scoliosis or deformity SKIN: No rashes CENTRAL NERVOUS SYSTEM: Alert and oriented -3. No focal deficits, tone is normal in all 4 extremities. PSYCHIATRIC: Alert and oriented -3. Appropriate affect. Intact judgment and insight. - Labs CBC & Chem 7: 11/12/21 06:37 11/12/21 06:37 Labs: Abnormal Lab Results - Last 24 Hours (Table) 11/12/21 11/12/21 Range/Units 06:37 06:37 Hct 53.3 H (39.0-53.0) % MCHC 30.5 L (31.0-37.0) g/dL RDW 19.3 H (11.5-15.5) % Chloride 91 L (96-109) mmol/L Carbon Dioxide 36.9 H (20.0-27.5) mmol/L BUN/Creatinine Ratio 20.57 H (12.00-20.00) Ratio Glucose 115 H (70-110) mg/dL Microbiology - Last 24 Hours (Table) 11/06/21 20:52 Blood Culture - Preliminary Blood No Growth after 120 hours Assessment and Plan Plan: Assessment: #1. Acute hypoxic respiratory failure related to acute exacerbation of diastolic CHF, suspected aspiration pneumonia and possible acute lung injury/FLOWER S. COVID-19 PCR was negative. Pro-calcitonin level was negative however patient does have history of aspiration pneumonia, completed Zosyn #2. Dyspnea, and hypoxia, patient required BiPAP, then high flow oxygen per Airvo, and ICU admission. However did not require intubation, clinically he was improving in response to antibiotics, diuretics and steroids, currently down to 6 L per high flow nasal cannula #3. Suspect aspiration pneumonitis, with hypoxic respiratory failure, completed Zosyn. #4. Possible acute lung injury/ARDS related to suspected aspiration, patient has been sufficiently diuresed, and completed Zosyn and steroids #5. History of Down syndrome #6. History of hyperlipidemia #5. History of obstructive sleep apnea, intolerant to CPAP #6. Obesity hypoventilation syndrome #7. Morbid obesity with BMI 48 kg/m #8. Mildly elevated d-dimer, lower extremity Dopplers were negative for DVT, underlying pulmonary embolism is not completely excluded, however patient is not able to travel to computed tomography scan related to high flow oxygen. We'll cover the patient with Lovenox 60 mg twice daily Plan: Patient is breathing comfortably, no worsening dyspnea Continue IV diuretics Continue weaning FiO2 to keep O2 sat saturation at or above 90% Clinically improving, no fever or chills Breathing easier, no coughing or wheezing Continue nebulized bronchodilators Patient has completed a course of antibiotics Vital signs have been stable We'll switch IV Lasix to oral Lasix 40 mg twice daily Patient may be considered for discharge planning from pulmonary perspective once FiO2 is down to 5 L or less Pulmonary service will sign off and follow on an as-needed basis I performed a history & physical examination of the patient and discussed their management with my nurse practitioner, Keyanna Corcoran. I reviewed the nurse practitioner's note and agree with the documented findings and plan of care. Lung sounds are positive for dim breath sounds at the bases throughout the lung colon. The findings and the impression was discussed with the patient. I a ttest to the documentation by the nurse practitioner. Time with Patient: Less than 30
[2021-11-12] MEDS: FUROSEMIDE 40 MG TAB PO SCH (15:33)
--- NOTE | 2021-11-12 16:31 | PN ---
PROGRESS NOTE DATE OF SERVICE: 11/12/2021 This 46-year-old gentleman who was admitted with shortness of breath and possible CHF acute exacerbation is being closely monitored. No chest pain. The patient is on IV diuretics. Chest x-ray improving. PHYSICAL EXAMINATION: Alert and oriented x2. Pulse is 79, blood pressure 120/72, respiration 20, temperature 97.8, pulse ox 93% on 6 L. HEENT: Conjunctivae normal. Oral mucosa moist. NECK: No jugular venous distention. No lymph node enlargement. CARDIOVASCULAR: S1, S2, muffled. No S3, no S4, RESPIRATORY: Diminished breath sounds at the bases. A few scattered rhonchi and crackles. ABDOMEN: Soft, nontender. LEGS: No edema, no swelling. NERVOUS SYSTEM: No focal deficits. LABS: Sodium 130, potassium 3.8. ASSESSMENT: 1. Shortness of breath, possibly multifactorial with mild fluid overload with congestive heart failure acute exacerbation, acute on chronic diastolic dysfunction, aspiration pneumonia as well as obesity hypoventilation syndrome. 2. Acute hypoxic respiratory failure. 3. History of sleep apnea. 4. ( ) CPAP. 5. Down's syndrome. 6. Gastroesophageal reflux disease. 7. Nausea, vomiting, possibly acute respiratory alkalosis, improved. 8. History of aspiration pneumonia. 9. Cholecystectomy. 10.Hypokalemia, improved. 11.Hyponatremia, improved. 12.Obesity with body mass index of 43.6. 13.FULL CODE. RECOMMENDATIONS AND DISCUSSION: Continue current management, continue symptomatic treatment. Continue bronchodilators. Continue the rest of the medications. Continue with intravenous Lasix. Guarded prognosis. Further recommendations to follow. MMODL / IJN: [id number] /
[2021-11-12 19:33] VITALS: RESP 18
[2021-11-12] MEDS: SODIUM CHLORIDE 0.9% 500 ML 500 ML IV SCH (23:07)
[2021-11-13] MEDS: IPRATROPIUM-ALBUTEROL 3 ML NEB INHALATION SCH ×3 (08:01→15:20)
[2021-11-13] MEDS: SYMBICORT 160-4.5 MCG INHALER INHALATION SCH (08:01)
[2021-11-13] MEDS ORDERED: TAMSULOSIN 0.4 MG CAP.ER.24H PO SCH (08:30)
[2021-11-13] MEDS: POTASSIUM CHLORIDE ER 20 MEQ TAB.ER PO SCH (09:39)
[2021-11-13] MEDS: FUROSEMIDE 40 MG TAB PO SCH ×2 (09:39→16:41)
[2021-11-13] MEDS: ENOXAPARIN 40 MG/0.4 ML SYRINGE SQ SCH (09:39)
[2021-11-13] MEDS: FAMOTIDINE 20 MG TAB PO SCH (09:40)
[2021-11-13] MEDS: ATORVASTATIN 40 MG TAB PO SCH (09:40)
[2021-11-13] MEDS ORDERED: methylPREDNISolone SOD SUCCI 125 MG/2 ML VIAL IV STA (10:33)
[2021-11-13 12:08] VITALS: BP 127/75; TEMP 98.3
[2021-11-13 15:23] VITALS: PULSE 80
--- NOTE | 2021-11-18 09:16 | P.DS ---
Providers Date of admission: 10/17/21 18:03 Expected date of discharge: 11/13/21 Attending physician: Basim Smith Consults: 10/18/21 12:38 Consult Physician Routine Consulting Provider: Yanick Mills Consult Reason/Comments: CHF Do you want consulting provider notified?: Yes Primary care physician: Katelyn Quintanilla Hospital Course: Final Diagnosis shortness of breath, possibly multi-factorial with some fluid overload with congestive heart failure acute exacerbation, acute on chronic diastolic dysfunction, aspiration pneumonia as well as obesity hypoventilation syndrome Acute hypoxic respiratory failure history of obstructive sleep apnea, does not tolerate CPAP Down syndrome GERD Nausea, vomiting, possible respiratory alkalosis, improved History of aspiration pneumonia Polycythemia hypokalemia, improved hyponatremia, improved Obesity with a body mass index of 43.5 full code Discharge disposition Patient is being discharged in a stable condition with guarded prognosis to home. Patient will follow-up with Dr. Quintanilla in the outpatient setting upon discharge. Patient is to follow-up with pulmonary outpatient. Patient will continue on lasix 40mg bid and also a prednisone taper and duonebs. Total time taken is greater than 35 minutes. Hospital course This is a 45-year-old male who was recently admitted with respiratory failure from aspiration pneumonia with pulmonary following closely. Patient is being closely monitored and maintained on IV lasix and will continue. Patient also continues on breathing inhalational treatments. Patient will continue on pred taper and also oxygen via NC to manage CHF. Patient will need close outpatient follow up with pulmonary. Continue with aspiration precautions. Patient's mother is the resident care technician and also arranging for home care on discharge. Currently no reports of chest pain, worsening shortness of breath, or palpitations. Patient is afebrile. No reports of nausea or vomiting and patient is tolerating diet. Patient will be discharged home today. Guarded prognosis. Physical Exam: Gen: This is a 45-year-old male who is awake, alert and oriented 2-3, well- developed, well-nourished. oxygen saturation is 93% on 5L HF HEENT: Head is atraumatic, normocephalic. Pupils equal, round. Sclerae is anicteric. NECK: Supple. No JVD. No lymphadenopathy. No thyromegaly. LUNGS: Breath sounds diminished with some mild scattered rhonchi noted . No intercostal retractions. HEART: S1, S2 are muffled ABDOMEN: Soft. obese. Bowel sounds are present. No masses. No tenderness. EXTREMITIES: No pedal edema. No calf tenderness. NEUROLOGICAL: Patient is awake, alert and oriented 2-3, no focal deficits . Please refer to medication reconciliation sheet for a list of medications. Patient Condition at Discharge: Stable Plan - Discharge Summary Discharge Rx Participant: No New Discharge Prescriptions: New Sodium Chloride 0.65% Nasal [Deep Sea (Saline)] 2 spray NASAL QID PRN #5 ml PRN Reason: Dry Nasal Passages Furosemide [Lasix] 40 mg PO BID@0900,1600 30 Days #60 tab predniSONE 10 mg PO DIRECTED #30 tab Budesonide-Formot 160-4.5 Mcg [Symbicort 160-4.5 Mcg Inhaler] 2 puff INHALATION RT-BID 30 Days #1 gm Ipratropium-Albuterol Nebulize [Duoneb 0.5 mg-3 mg/3 ml Soln] 3 ml INHALATION RT-QID 30 Days #90 ml Tamsulosin [Flomax] 0.8 mg PO PC-BRKFST 30 Days #60 capsule Potassium Chloride ER [K-Dur 20] 20 meq PO DAILY 30 Days #30 tablet Acetaminophen Tab [Tylenol] 650 mg PO Q6HR PRN tab PRN Reason: Mild Pain Or Fever > 100.5 Continue Atorvastatin [Lipitor] 40 mg PO DAILY Famotidine [Pepcid] 20 mg PO DAILY Discharge Medication List Atorvastatin [Lipitor] 40 mg PO DAILY 01/11/16 [History] Famotidine [Pepcid] 20 mg PO DAILY 01/11/16 [History] Acetaminophen Tab [Tylenol] 650 mg PO Q6HR PRN tab 11/13/21 [Rx] Budesonide-Formot 160-4.5 Mcg [Symbicort 160-4.5 Mcg Inhaler] 2 puff INHALATION RT-BID 30 Days #1 gm 11/13/21 [Rx] Furosemide [Lasix] 40 mg PO BID@0900,1600 30 Days #60 tab 11/13/21 [Rx] Ipratropium-Albuterol Nebulize [Duoneb 0.5 mg-3 mg/3 ml Soln] 3 ml INHALATION RT-QID 30 Days #90 ml 11/13/21 [Rx] Potassium Chloride ER [K-Dur 20] 20 meq PO DAILY 30 Days #30 tablet 11/13/21 [Rx] Sodium Chloride 0.65% Nasal [Deep Sea (Saline)] 2 spray NASAL QID PRN #5 ml 11/13/21 [Rx] Tamsulosin [Flomax] 0.8 mg PO PC-BRKFST 30 Days #60 capsule 11/13/21 [Rx] predniSONE 10 mg PO DIRECTED #30 tab 11/13/21 [Rx] Follow up Appointment(s)/Referral(s): Rudy Valladares MD [Family Provider] - 1 Week (please call office closed at this time) Katelyn Quintanilla MD [Primary Care Provider] - 1-2 days (please call office closed at this time) [facility] Visiting Nurse, [NON-STAFF] - 1-2 Days Ambulatory/Diagnostic Orders: Complete Blood Count w/diff [LAB.AMB] Time Frame: 2 Days, Location: None Selected Patient Instructions/Handouts: Furosemide (By mouth), Prednisone (By mouth), Potassium Chloride (By mouth), Tamsulosin (By mouth), Ipratropium/Albuterol (By breathing), Budesonide/Formoterol (By breathing), Sodium Chloride (Into the nose), Heart Failure (DC), Pneumonia (DC) Activity/Diet/Wound Care/Special Instructions: activity Limited until follow-up Follow-up primary care provider on discharge Follow-up pulmonary outpatient Continue with medications as prescribed Recommend repeat labs in 2-3 days Continue with regular diet with fluid restrictions of 1200 mL per day Maintain aspiration precautions with supervision with meals and maintaining head of the bed elevated 30-45 at all times Patient requiring oxygen at 5 L via nasal cannula to manage CHF Discharge Disposition: HOME WITH HOME HEALTH SERVICES
== END 2021-11-13 17:45 | disposition home health service (06) | DRG 291 ==
LOC: EC 14:35 → 5NMEDONC 18:03 → 4SSUR 23:44 → 6NMEDSUR 10-18 05:01 → 4SSUR 10-18 10:26 → 2SICU 10-23 15:52 → 5NMEDONC 10-27 16:25
PROVIDERS: ADMIT Internal Medicine; ATTEND Internal Medicine
PROC: 5A0945A Assistance with Respiratory Ventilation, 24-96 Consecutive Hours, High Flow/Velocity Cannula (ICD-10-PCS; principal; 2021-10-17)
PROC: 5A0955A Assistance with Respiratory Ventilation, Greater than 96 Consecutive Hours, High Flow/Velocity Cannula (ICD-10-PCS; 2021-10-17)
PROC: 02HV33Z Insertion of Infusion Device into Superior Vena Cava, Percutaneous Approach (ICD-10-PCS; 2021-10-24)
PROC: 3E0436Z Introduction of Nutritional Substance into Central Vein, Percutaneous Approach (ICD-10-PCS; 2021-10-25)
DX: I50.33 Acute on chronic diastolic (congestive) heart failure (principal); J69.0 Pneumonitis due to inhalation of food and vomit; J96.21 Acute and chronic respiratory failure with hypoxia; J96.22 Acute and chronic respiratory failure with hypercapnia; E87.3 Alkalosis; E66.2 Morbid (severe) obesity with alveolar hypoventilation; E87.1 Hypo-osmolality and hyponatremia; Z68.42 Body mass index [BMI] 45.0-49.9, adult; J98.11 Atelectasis; J44.9 Chronic obstructive pulmonary disease, unspecified; Z20.822 Contact with and (suspected) exposure to COVID-19; E78.5 Hyperlipidemia, unspecified; Q90.9 Down syndrome, unspecified; F41.9 Anxiety disorder, unspecified; G47.33 Obstructive sleep apnea (adult) (pediatric); D75.1 Secondary polycythemia; E87.6 Hypokalemia; K21.9 Gastro-esophageal reflux disease without esophagitis; R32 Unspecified urinary incontinence; R41.83 Borderline intellectual functioning; Z79.899 Other long term (current) drug therapy; Z77.22 Contact with and (suspected) exposure to environmental tobacco smoke (acute) (chronic); Z87.01 Personal history of pneumonia (recurrent); Z90.49 Acquired absence of other specified parts of digestive tract; Z87.19 Personal history of other diseases of the digestive system; Z87.39 Personal history of other diseases of the musculoskeletal system and connective tissue; Z86.69 Personal history of other diseases of the nervous system and sense organs; Z87.2 Personal history of diseases of the skin and subcutaneous tissue; Z98.890 Other specified postprocedural states; Z71.3 Dietary counseling and surveillance
CPT/HCPCS: 36415; 36573; 36600; 71045; 71250; 71275; 74018; 80048; 80053; 82330; 82805; 83605; 83735; 83880; 84100; 84132; 84145; 84478; 84484; 85025; 85027; 85379; 85610; 85730; 87040; 87502; 87635; 93005; 93306; 93970; 94640; 94660; 94760; 96365; 96366; 96375; 96376; 99285

== ENCOUNTER 2021-12-15 13:28 | Inpatient (IN) | payer MEDICARE, OTHER ==
[2021-12-15] MEDS ORDERED: SODIUM CHLORIDE 0.9% 1,000 ML IV STA (13:55)
--- NOTE | 2021-12-15 13:58 | ED ---
SOB HPI - General Chief Complaint: Shortness of Breath Stated Complaint: DEANN Time Seen by Provider: 12/15/21 13:40 Source: patient, EMS, RN notes reviewed, old records reviewed Mode of arrival: EMS Limitations: physical limitation - History of Present Illness Initial Comments: This is a 38-year-old male history of asthma and CHF doubt pneumonia memory i mpairment who uses 2 L of oxygen per minute at home who was brought in by EMS today because of shortness of breath. He was given a DuoNeb and route in. Sweats phlegm production. No chest pain reported. No other current complaints or modifying factors. The patient is a poor historian. MD Complaint: shortness of breath - Related Data Home Medications Medication Instructions Recorded Confirmed Atorvastatin [Lipitor] 40 mg PO DAILY 01/11/16 12/15/21 Famotidine [Pepcid] 20 mg PO DAILY 01/11/16 12/15/21 Sodium Chloride 0.65% Nasal [Deep 2 spr NASAL QID PRN 12/15/21 12/15/21 Sea (Saline)] Spironolactone [Aldactone] 25 mg PO MOWEFR 12/15/21 12/15/21 Previous Rx's Medication Instructions Recorded Acetaminophen Tab [Tylenol] 650 mg PO Q6HR PRN tab 11/13/21 Budesonide-Formot 160-4.5 Mcg 2 puff INHALATION RT-BID 30 Days 11/13/21 [Symbicort 160-4.5 Mcg Inhaler] #1 gm Ipratropium-Albuterol Nebulize 3 ml INHALATION RT-QID 30 Days #90 11/13/21 [Duoneb 0.5 mg-3 mg/3 ml Soln] ml Allergies Allergy/AdvReac Type Severity Reaction Status Date / Time No Known Allergies Allergy Verified 12/15/21 15:16 Review of Systems ROS Statement: Those systems with pertinent positive or pertinent negative responses have been documented in the HPI. ROS Other: All systems not noted in ROS Statement are negative. Past Medical History Past Medical History: Asthma, GERD/Reflux, Hyperlipidemia, Memory Impairment Additional Past Medical History / Comment(s): Down syndrome/IQ of about 74, chronic feet issue d/t gout, SHARRI but pt unable to tolerate CPAP, History of Any Multi-Drug Resistant Organisms: None Reported Past Surgical History: Ear Surgery Additional Past Surgical History / Comment(s): Tubes in ears, eye sx-family believes due to weak muscles, cyst removed from back Past Anesthesia/Blood Transfusion Reactions: No Reported Reaction Past Psychological History: No Psychological Hx Reported Smoking Status: Second hand smoke exposure Past Alcohol Use History: None Reported Past Drug Use History: None Reported - Past Family History Mother Family Medical History: GERD/Reflux Additional Family Medical History / Comment(s): Vivienne General Exam - General Exam Comments Initial Comments: This a well-developed obese male who is awake alert. Limitations: physical limitation General appearance: alert, anxious Head exam: Present: atraumatic, normocephalic, normal inspection Eye exam: Present: normal appearance, PERRL, EOMI. Absent: scleral icterus, conjunctival injection, periorbital swelling ENT exam: Present: mucous membranes dry Neck exam: Present: normal inspection, full ROM, other (No stridor JVD or bruits). Absent: tenderness, meningismus, lymphadenopathy Respiratory exam: Present: wheezes, decreased breath sounds. Absent: respiratory distress, rales, rhonchi, stridor Cardiovascular Exam: Present: regular rate, normal rhythm, normal heart sounds. Absent: systolic murmur, diastolic murmur, rubs, gallop, clicks GI/Abdominal exam: Present: soft, normal bowel sounds. Absent: distended, tenderness, guarding, rebound, rigid Extremities exam: Present: normal inspection, full ROM, normal capillary refill. Absent: tenderness, pedal edema, joint swelling, calf tenderness Back exam: Present: normal inspection Neurological exam: Present: alert, oriented X3, CN II-XII intact Psychiatric exam: Present: normal affect, normal mood Skin exam: Present: warm, dry, intact, normal color. Absent: rash Course Vital Signs 12/15/21 12/15/21 12/15/21 13:31 14:06 15:05 Temperature 98.4 F Pulse Rate 76 71 Respiratory 22 26 H 28 H Rate Blood Pressure 141/97 101/65 O2 Sat by Pulse 88 L 82 L Oximetry 12/15/21 12/15/21 12/15/21 15:47 15:54 18:54 Temperature Pulse Rate 80 80 78 Respiratory 18 18 26 H Rate Blood Pressure 107/90 O2 Sat by Pulse 80 L Oximetry - Reevaluation(s) Reevaluation #1: 12/15/21 20:00 Patient is getting some improvement after initial treatment. He denies any shortness of breath this time lung sounds are improved Medical Decision Making - Medical Decision Making I did discuss findings the patient he does demonstrate evidence of congestive failure with bronchospasm. He did have elevated d-dimer negative for PE and CAT scan. He does have elevated troponin no definitive ST changes. Patient will be admitted for inpatient evaluation and treatment - Lab Data Result diagrams: 12/15/21 14:06 12/15/21 14:06 Lab Results 12/15/21 12/15/21 12/15/21 Range/Units 14:06 14:06 14:06 WBC 11.7 H (3.8-10.6) k/uL RBC 5.15 (4.30-5.90) m/uL Hgb 14.8 (13.0-17.5) gm/dL Hct 47.9 (39.0-53.0) % MCV 93.1 (80.0-100.0) fL MCH 28.7 (25.0-35.0) pg MCHC 30.8 L (31.0-37.0) g/dL RDW 23.2 H (11.5-15.5) % Plt Count 230 (150-450) k/uL MPV 9.3 Neutrophils % 74 % Lymphocytes % 19 % Monocytes % 5 % Eosinophils % 1 % Basophils % 1 % Neutrophils # 8.7 H (1.3-7.7) k/uL Lymphocytes # 2.2 (1.0-4.8) k/uL Monocytes # 0.5 (0-1.0) k/uL Eosinophils # 0.1 (0-0.7) k/uL Basophils # 0.1 (0-0.2) k/uL Hypochromasia Moderate Poikilocytosis Slight Anisocytosis Moderate Macrocytosis Slight PT 12.4 H (9.0-12.0) sec INR 1.2 H (<1.2) APTT 23.2 (22.0-30.0) sec D-Dimer (<0.60) mg/L FEU Sodium 138 (137-145) mmol/L Potassium 4.5 (3.5-5.1) mmol/L Chloride 90 L (98-107) mmol/L Carbon Dioxide 39 H (22-30) mmol/L Anion Gap 9 mmol/L BUN 29 H (9-20) mg/dL Creatinine 0.78 (0.66-1.25) mg/dL Est GFR (CKD-EPI)AfAm >90 (>60 ml/min/1.73 sqM) Est GFR (CKD-EPI)NonAf >90 (>60 ml/min/1.73 sqM) Glucose 106 H (74-99) mg/dL Plasma Lactic Acid David (0.7-2.0) mmol/L Calcium 8.4 (8.4-10.2) mg/dL Magnesium 2.1 (1.6-2.3) mg/dL Total Bilirubin 1.2 (0.2-1.3) mg/dL AST 642 H (17-59) U/L ALT 1133 H (4-49) U/L Alkaline Phosphatase 148 H (38-126) U/L Troponin I (0.000-0.034) ng/mL NT-Pro-B Natriuret Pep pg/mL Total Protein 7.2 (6.3-8.2) g/dL Albumin 3.4 L (3.5-5.0) g/dL Urine Color Urine Appearance (Clear) Urine pH (5.0-8.0) Ur Specific [place] (1.001-1.035) Urine Protein (Negative) Urine Glucose (UA) (Negative) Urine Ketones (Negative) Urine Blood (Negative) Urine Nitrite (Negative) Urine Bilirubin (Negative) Urine Urobilinogen (<2.0) mg/dL Ur Leukocyte Esterase (Negative) Coronavirus (PCR) (Not Detectd) 12/15/21 12/15/21 12/15/21 Range/Units 14:06 14:06 14:06 WBC (3.8-10.6) k/uL RBC (4.30-5.90) m/uL Hgb (13.0-17.5) gm/dL Hct (39.0-53.0) % MCV (80.0-100.0) fL MCH (25.0-35.0) pg MCHC (31.0-37.0) g/dL RDW (11.5-15.5) % Plt Count (150-450) k/uL MPV Neutrophils % % Lymphocytes % % Monocytes % % Eosinophils % % Basophils % % Neutrophils # (1.3-7.7) k/uL Lymphocytes # (1.0-4.8) k/uL Monocytes # (0-1.0) k/uL Eosinophils # (0-0.7) k/uL Basophils # (0-0.2) k/uL Hypochromasia Poikilocytosis Anisocytosis Macrocytosis PT (9.0-12.0) sec INR (<1.2) APTT (22.0-30.0) sec D-Dimer (<0.60) mg/L FEU Sodium (137-145) mmol/L Potassium (3.5-5.1) mmol/L Chloride (98-107) mmol/L Carbon Dioxide (22-30) mmol/L Anion Gap mmol/L BUN (9-20) mg/dL Creatinine (0.66-1.25) mg/dL Est GFR (CKD-EPI)AfAm (>60 ml/min/1.73 sqM) Est GFR (CKD-EPI)NonAf (>60 ml/min/1.73 sqM) Glucose (74-99) mg/dL Plasma Lactic Acid David 1.2 (0.7-2.0) mmol/L Calcium (8.4-10.2) mg/dL Magnesium (1.6-2.3) mg/dL Total Bilirubin (0.2-1.3) mg/dL AST (17-59) U/L ALT (4-49) U/L Alkaline Phosphatase (38-126) U/L Troponin I 0.408 H* (0.000-0.034) ng/mL NT-Pro-B Natriuret Pep 3290 pg/mL Total Protein (6.3-8.2) g/dL Albumin (3.5-5.0) g/dL Urine Color Urine Appearance (Clear) Urine pH (5.0-8.0) Ur Specific [place] (1.001-1.035) Urine Protein (Negative) Urine Glucose (UA) (Negative) Urine Ketones (Negative) Urine Blood (Negative) Urine Nitrite (Negative) Urine Bilirubin (Negative) Urine Urobilinogen (<2.0) mg/dL Ur Leukocyte Esterase (Negative) Coronavirus (PCR) (Not Detectd) 12/15/21 12/15/21 12/15/21 Range/Units 14:06 14:24 14:25 WBC (3.8-10.6) k/uL RBC (4.30-5.90) m/uL Hgb (13.0-17.5) gm/dL Hct (39.0-53.0) % MCV (80.0-100.0) fL MCH (25.0-35.0) pg MCHC (31.0-37.0) g/dL RDW (11.5-15.5) % Plt Count (150-450) k/uL MPV Neutrophils % % Lymphocytes % % Monocytes % % Eosinophils % % Basophils % % Neutrophils # (1.3-7.7) k/uL Lymphocytes # (1.0-4.8) k/uL Monocytes # (0-1.0) k/uL Eosinophils # (0-0.7) k/uL Basophils # (0-0.2) k/uL Hypochromasia Poikilocytosis Anisocytosis Macrocytosis PT (9.0-12.0) sec INR (<1.2) APTT (22.0-30.0) sec D-Dimer 3.44 H (<0.60) mg/L FEU Sodium (137-145) mmol/L Potassium (3.5-5.1) mmol/L Chloride (98-107) mmol/L Carbon Dioxide (22-30) mmol/L Anion Gap mmol/L BUN (9-20) mg/dL Creatinine (0.66-1.25) mg/dL Est GFR (CKD-EPI)AfAm (>60 ml/min/1.73 sqM) Est GFR (CKD-EPI)NonAf (>60 ml/min/1.73 sqM) Glucose (74-99) mg/dL Plasma Lactic Acid David (0.7-2.0) mmol/L Calcium (8.4-10.2) mg/dL Magnesium (1.6-2.3) mg/dL Total Bilirubin (0.2-1.3) mg/dL AST (17-59) U/L ALT (4-49) U/L Alkaline Phosphatase (38-126) U/L Troponin I (0.000-0.034) ng/mL NT-Pro-B Natriuret Pep pg/mL Total Protein (6.3-8.2) g/dL Albumin (3.5-5.0) g/dL Urine Color Light Yellow Urine Appearance Clear (Clear) Urine pH 6.0 (5.0-8.0) Ur Specific [place] 1.006 (1.001-1.035) Urine Protein Negative (Negative) Urine Glucose (UA) Negative (Negative) Urine Ketones Negative (Negative) Urine Blood Negative (Negative) Urine Nitrite Negative (Negative) Urine Bilirubin Negative (Negative) Urine Urobilinogen <2.0 (<2.0) mg/dL Ur Leukocyte Esterase Negative (Negative) Coronavirus (PCR) Not Detected (Not Detectd) - EKG Data -: EKG Interpreted by Nh EKG shows normal: sinus rhythm EKG Comments: Sinus rhythm a 79. 133 QRS duration 100 QT since QTC 363/397 evidence of anterior configuration changes - Radiology Data Radiology results: report reviewed (Bilateral interstitial infiltrates receive a report), image reviewed Critical Care Time Critical Care Time: Yes Total Critical Care Time: 35 Critical Care Time: Critical care time includes initial presentation with history physical labs x- rays multiple reevaluation the patient discussed with the admitting physician admission orders documentation above review of old charting was available Disposition Clinical Impression: Acute pulmonary edema, Acute bronchospasm, NSTEMI (non-ST elevated myocardial infarction), Hypoxemia Disposition: ADMITTED IP TO THIS [facility] Condition: Fair Referrals: Katelyn Quintanilla MD [Primary Care Provider] - 1-2 days
[2021-12-15 14:27] LABS: AST 642 U/L (17-59); African American GFR (CKD) >90 (>60 ml/min/1.73 sqM); Albumin 3.4 g/dL (3.5-5.0); Alkaline Phosphatase 148 U/L (38-126); Blood Urea Nitrogen 29 mg/dL (9-20); Calcium 8.4 mg/dL (8.4-10.2); Chloride 90 mmol/L (98-107); Glucose 106 mg/dL (74-99); Magnesium 2.1 mg/dL (1.6-2.3); Non-African American GFR(CKD) >90 (>60 ml/min/1.73 sqM); Potassium 4.5 mmol/L (3.5-5.1); Sodium 138 mmol/L (137-145); Total Bilirubin 1.2 mg/dL (0.2-1.3); Total Protein 7.2 g/dL (6.3-8.2)
[2021-12-15 14:32] LABS: Anion Gap 9 mmol/L
[2021-12-15 14:33] LABS: Carbon Dioxide 39 mmol/L (22-30)
[2021-12-15 14:34] LABS: Appearance,Urine Clear (Clear); Bilirubin,Urine Negative (Negative); Blood,Urine Negative (Negative); Color,Urine Light Yellow; Glucose,Urine (UA) Negative (Negative); Ketones,Urine Negative (Negative); Leukocyte Esterase,Urine Negative (Negative); Nitrite,Urine Negative (Negative); Protein,Urine Negative (Negative); Specific Gravity,Urine 1.006 (1.001-1.035); Urobilinogen,Urine <2.0 mg/dL (<2.0)
[2021-12-15 14:34] LABS: ALT 1133 U/L (4-49)
[2021-12-15 14:35] LABS: Anisocytosis Moderate; Basophils # (A) 0.1 k/uL (0-0.2); Basophils % (A) 1 %; Eosinophils # (A) 0.1 k/uL (0-0.7); Eosinophils % (A) 1 %; HCT 47.9 % (39.0-53.0); HGB 14.8 gm/dL (13.0-17.5); Hypochromasia Moderate; Lymphocytes # (A) 2.2 k/uL (1.0-4.8); Lymphocytes % (A) 19 %; MCH 28.7 pg (25.0-35.0); MCHC 30.8 g/dL (31.0-37.0); MCV 93.1 fL (80.0-100.0); Macrocytosis Slight; Mean Platelet Volume 9.3; Monocytes # (A) 0.5 k/uL (0-1.0); Monocytes % (A) 5 %; Neutrophils # (A) 8.7 k/uL (1.3-7.7); Neutrophils % (A) 74 %; Platelet Count 230 k/uL (150-450); Poikilocytosis Slight; RBC 5.15 m/uL (4.30-5.90); RDW 23.2 % (11.5-15.5); WBC 11.7 k/uL (3.8-10.6)
[2021-12-15 14:37] LABS: INR 1.2 (<1.2); Partial Thromboplastin Time 23.2 sec (22.0-30.0); Prothrombin Time 12.4 sec (9.0-12.0)
--- NOTE | 2021-12-15 14:59 | XR ---
EXAMINATION TYPE: XR chest 2V DATE OF EXAM: 12/15/2021 COMPARISON: 11/11/2021 HISTORY: Chest pain TECHNIQUE: Frontal and lateral views of the chest are obtained. FINDINGS: Progressive Patchy perihilar and basilar infiltrates noted. No evidence for pneumothorax. No pleural effusion. The cardiac silhouette size is within normal limits. The osseous structures are grossly intact. IMPRESSION: 1. Progressive Patchy perihilar and basilar infiltrates noted.
[2021-12-15] MEDS ORDERED: FUROSEMIDE 10 MG/ML 4 ML VIAL IV STA (15:12)
[2021-12-15] MEDS ORDERED: IPRATROPIUM-ALBUTEROL 3 ML NEB INHALATION STA (15:12)
--- NOTE | 2021-12-15 18:26 | CT ---
EXAMINATION TYPE: CT angio chest DATE OF EXAM: 12/15/2021 COMPARISON: None HISTORY: Shortness of breath, elevated d-dimer. CT DLP: 675.4 mGycm Automated exposure control for dose reduction was used. CONTRAST: Performed with IV Contrast, patient injected with 100 mL of Isovue 370. Images obtained from the diaphragm to the floor of the pelvis with intravenous contrast. There are a few paratracheal lymph nodes up to 1 cm. Thoracic aorta is intact. There is no aneurysm o r dissection. There is normal contrast opacification of the pulmonary arteries. There are no filling defects. There is some minor spurring in the thoracic spine. There is no compression fracture. Sternum is inta ct. The ribs appear intact. There is mild to moderate interstitial infiltrates in the mid and lower lung colon. There is no evid ence of a solid pulmonary mass. IMPRESSION: No evidence of pulmonary embolism. Moderate pulmonary interstitial edema in the mid and lower lung fi elds.
[2021-12-15] MEDS ORDERED: ASPIRIN 325 MG TAB PO STA (20:10)
[2021-12-15] MEDS: NITROGLYCERIN OINT 1 INCH/GM PACKET TOPICAL SCH (23:04)
[2021-12-15] MEDS: FUROSEMIDE 40 MG TAB PO SCH (23:58)
[2021-12-16] MEDS ORDERED: IPRATROPIUM-ALBUTEROL 3 ML NEB INHALATION SCH
[2021-12-16 08:10] LABS: African American GFR (CKD) >90 (>60 ml/min/1.73 sqM); Blood Urea Nitrogen 18 mg/dL (9-20); Chloride 87 mmol/L (98-107); Glucose 143 mg/dL (74-99); Non-African American GFR(CKD) >90 (>60 ml/min/1.73 sqM); Potassium 3.9 mmol/L (3.5-5.1); Sodium 134 mmol/L (137-145)
[2021-12-16 08:16] LABS: Anion Gap 5 mmol/L
[2021-12-16 08:19] LABS: Carbon Dioxide 42 mmol/L (22-30)
[2021-12-16] MEDS: IPRATROPIUM-ALBUTEROL 3 ML NEB INHALATION SCH ×4 (08:59→20:46)
[2021-12-16] MEDS: SPIRONOLACTONE 25 MG TAB PO SCH (09:30)
[2021-12-16] MEDS: FUROSEMIDE 40 MG TAB PO SCH ×3 (09:30→23:41)
[2021-12-16] MEDS: ASPIRIN 325 MG TAB PO SCH (09:30)
[2021-12-16] MEDS: NITROGLYCERIN OINT 1 INCH/GM PACKET TOPICAL SCH ×4 (09:30→21:02)
--- NOTE | 2021-12-16 10:13 | P.CRDCN ---
History of Present Illness Consult date: 12/16/21 Reason for Consult (text): Elevated troponin, CHF History of present illness: HISTORY OF PRESENT ILLNESS This is a 46-year-old male with history of Down syndrome, recent hospitalization in October of this year at which time he was treated for acute hypoxic respiratory failure related to pneumonia and acute diastolic heart failure. Echocardiogram had revealed EF of 50-55%, technically difficult study. The patient is a poor historian and unable to obtain history. Patient presented to the emergency center due to increasing shortness of breath and drop in pulse ox to 82% with oxygen. CO2 was 39, WBC 11.7, hemoglobin 14.8. BUN 29 creatinine 0.78. Liver function tests were quite elevated with AST of 642, ALT 1133 and alkaline phosphatase 148. Lactic acid 1.2. ProBNP 3290. Troponin 0.408, 0.282, 0.255. D-dimer 3.44. Chronic virus PCR not detected. EKG was a sinus rhythm. CT angiogram of the chest showed no evidence of pulmonary embolism. Moderate pulmonary interstitial edema in the mid and lower lung colon. Chest x-ray reveals progressive patchy perihilar and basilar infiltrates noted. REVIEW OF SYSTEMS Constitutional: No documented fever. Lungs: Reported shortness of breath with drop in pulse ox. Cardiovascular: No chest pain, no lower extremity edema. No palpitations. No reported syncopal episodes. Abdominal: No abdominal pain. No nausea, vomiting. PHYSICAL EXAMINATION Gen: This is a 46 year old male resting in bed currently receiving nebulizer treatment VS: Afebrile, heart rate in the 80s, blood pressure 121/55, pulse ox 96% on high flow nasal cannula HEENT: Head is atraumatic, normocephalic. Pupils equal, round. Sclerae is anicteric. NECK: Supple. No JVD. No lymphadenopathy. No thyromegaly. LUNGS: Bilateral scattered rhonchi. No intercostal retractions. HEART: Distant heart sounds, Regular rate and rhythm. No murmur. ABDOMEN: Soft. Bowel sounds are present. No masses. No tenderness. EXTREMITIES: No pedal edema. No calf tenderness. NEUROLOGICAL: Patient is awake, alert. ASSESSMENT Acute on chronic hypoxic respiratory failure, on home O2 at 2 L Acute on chronic diastolic heart failure Elevated troponin secondary to heart failure Pneumonia Down syndrome Sleep apnea PLAN Continue patient on Lasix 40 mg oral every 8 hours, add Aldactone 12.5 mg daily and lisinopril 2.5 mg daily Continue patient on aspirin, atorvastatin Obtain 2-D echocardiogram and Doppler study to assess cardiac structure and function Further recommendations to follow based upon clinical course Thank you kindly for this consultation. Nurse practitioner note has been reviewed, I agree with documented findings and plan of care. Patient was seen and examined. Past Medical History Past Medical History: Asthma, Heart Failure, GERD/Reflux, Hyperlipidemia, Memory Impairment Additional Past Medical History / Comment(s): Down syndrome/IQ of about 74, chronic feet issue d/t gout, SHARRI but pt unable to tolerate CPAP, History of Any Multi-Drug Resistant Organisms: None Reported Past Surgical History: Ear Surgery Additional Past Surgical History / Comment(s): Tubes in ears, eye sx-family believes due to weak muscles, cyst removed from back Past Anesthesia/Blood Transfusion Reactions: No Reported Reaction Past Psychological History: No Psychological Hx Reported Additional Psychological History / Comment(s): Pt resides with his mother who is his legal gaurdian and crosscutter. She helps him with his ADLs and manages his medications. Pt uses a walker or cane if his gout is flared up in his feet. Mother takes him to appts. Pt is continent and able to feed himself. Smoking Status: Second hand smoke exposure Past Alcohol Use History: None Reported Past Drug Use History: None Reported - Past Family History Mother Family Medical History: Congestive Heart Failure (CHF), GERD/Reflux Additional Family Medical History / Comment(s): Vivienne Medications and Allergies Home Medications Medication Instructions Recorded Confirmed Type Atorvastatin [Lipitor] 40 mg PO DAILY 01/11/16 12/15/21 History Famotidine [Pepcid] 20 mg PO DAILY 01/11/16 12/15/21 History Acetaminophen Tab [Tylenol] 650 mg PO Q6HR PRN tab 11/13/21 12/15/21 Rx Budesonide-Formot 160-4.5 Mcg 2 puff INHALATION RT-BID 30 Days 11/13/21 12/15/21 Rx [Symbicort 160-4.5 Mcg Inhaler] #1 gm Ipratropium-Albuterol Nebulize 3 ml INHALATION RT-QID 30 Days #90 11/13/21 12/15/21 Rx [Duoneb 0.5 mg-3 mg/3 ml Soln] ml Sodium Chloride 0.65% Nasal [Deep 2 spr NASAL QID PRN 12/15/21 12/15/21 History Sea (Saline)] Spironolactone [Aldactone] 25 mg PO MOWEFR 12/15/21 12/15/21 History Allergies Allergy/AdvReac Type Severity Reaction Status Date / Time No Known Allergies Allergy Verified 12/15/21 15:16 Physical Exam Vitals: Vital Signs Temp Pulse Pulse Resp BP BP Pulse Ox 12/16/21 08:59 84 12/16/21 03:00 98.3 F 70 24 121/55 96 12/15/21 23:57 80 12/15/21 23:48 78 12/15/21 23:35 98.2 F 79 26 H 118/58 93 L 12/15/21 23:05 76 20 112/60 91 L 12/15/21 18:54 78 26 H 107/90 80 L 12/15/21 15:54 80 18 12/15/21 15:47 80 18 12/15/21 15:05 71 28 H 101/65 82 L 12/15/21 14:06 26 H 12/15/21 13:31 98.4 F 76 22 141/97 88 L Intake and Output 12/15/21 12/16/21 12/16/21 22:59 06:59 14:59 Intake Total 118 Output Total 1800 Balance -1800 118 Intake: Oral 118 Output: Urine 1800 Other: Voiding Method Urinal Weight 136.078 kg Results 12/15/21 14:06 12/16/21 07:35 Cardiac Enzymes 12/15/21 12/15/21 12/15/21 Range/Units 14:06 14:06 20:28 AST 642 H (17-59) U/L Troponin I 0.408 H* 0.282 H* (0.000-0.034) ng/mL 12/15/21 Range/Units 23:40 AST (17-59) U/L Troponin I 0.255 H* (0.000-0.034) ng/mL Coagulation 12/15/21 Range/Units 14:06 PT 12.4 H (9.0-12.0) sec APTT 23.2 (22.0-30.0) sec CBC 12/15/21 Range/Units 14:06 WBC 11.7 H (3.8-10.6) k/uL RBC 5.15 (4.30-5.90) m/uL Hgb 14.8 (13.0-17.5) gm/dL Hct 47.9 (39.0-53.0) % Plt Count 230 (150-450) k/uL Comprehensive Metabolic Panel 12/15/21 12/16/21 Range/Units 14:06 07:35 Sodium 138 134 L (137-145) mmol/L Potassium 4.5 3.9 (3.5-5.1) mmol/L Chloride 90 L 87 L (98-107) mmol/L Carbon Dioxide 39 H 42 H* (22-30) mmol/L BUN 29 H 18 (9-20) mg/dL Creatinine 0.78 0.61 L (0.66-1.25) mg/dL Glucose 106 H 143 H (74-99) mg/dL Calcium 8.4 8.0 L (8.4-10.2) mg/dL AST 642 H (17-59) U/L ALT 1133 H (4-49) U/L Alkaline Phosphatase 148 H (38-126) U/L Total Protein 7.2 (6.3-8.2) g/dL Albumin 3.4 L (3.5-5.0) g/dL Current Medications Generic Name Dose Route Start Last Admin Trade Name Freq PRN Reason Stop Dose Admin Albuterol/Ipratropium 3 ml 12/16/21 08:00 12/16/21 08:59 Ipratropium-Albuterol 3 Ml Neb INHALATION 3 ml RT-QID BLAKE Administration Aspirin 325 mg 12/16/21 09:00 Aspirin 325 Mg Tab PO DAILY BLAKE Furosemide 40 mg 12/16/21 00:00 12/15/21 23:58 Furosemide 40 Mg Tab PO 40 mg Q8HR BLAKE Administration Nitroglycerin 0.5 inch 12/15/21 22:00 12/15/21 23:04 Nitroglycerin Oint 1 Inch/Gm Packet TOPICAL 0.5 inch QID BLAKE Administration Intake and Output 12/15/21 12/16/21 12/16/21 22:59 06:59 14:59 Intake Total 118 Output Total 1800 Balance -1800 118 Intake: Oral 118 Output: Urine 1800 Other: Voiding Method Urinal Weight 136.078 kg 12/15/21 14:06 12/16/21 07:35
--- NOTE | 2021-12-16 10:49 | P.HPIM ---
History of Present Illness This is a pleasant 46 years old male with past medical history of Asthma, GERD/Reflux, Hyperlipidemia, Memory Impairment, Down syndrome/IQ of about 74, chronic feet issue d/t gout, SHARRI but pt unable to tolerate CPAP Patient is poor historian, sitting in bed eating his breakfast with no difficulty on high flow nasal cannula, he can tell me he is in the hospital but he could not recognize which hospital, the date or the name of the president. When I ask her most recently came to the hospital he points to his right forearm block stating it is because of this. However patient states that his breathing is better now and he denies chest pain or abdominal pain or any other complaints He denies smoking, alcohol or illicit drugs. Patient is hypoxic on the presentation, with oxygen saturating 88% on 4 L and 82% on 50 L, currently on high flow nasal cannula 55%. Afebrile, tachypneic. Has leukocytosis of 11.7, rest of CBC is unremarkable. INR is 1.2 D-dimer is 3.4. BMP is unremarkable, liver enzymes significantly elevated with AST 642 and ALT 1133. Troponin is elevated at 0.4 and 0.2. Urine analysis is not suspicious of infection. Coronal versus nondetected. EKG: Normal sinus rhythm at [address]-T abnormality. Patient was started on aspirin 325 mg, IV Lasix and then oral Lasix 40 mg every 8 hours, bronchodilator. With cardiology team consulted Echocardiogram done on 09/2021 showing preserved ejection fraction of 50-55%. Review of Systems Review of systems CONSTITUTIONAL: No fever, no malaise, no fatigue. HEENT: No recent visual problems or hearing problems. Denied any sore throat. CARDIOVASCULAR: No orthopnea, PND, no palpitations, no syncope. PULMONARY: No chest wall tenderness, no hemoptysis. GASTROINTESTINAL: No diarrhea, no nausea, no vomiting, no abdominal pain. Normoactive bowel sounds. NEUROLOGICAL: No headaches, no weakness, no numbness. HEMATOLOGICAL: Denies any bleeding or petechiae. GENITOURINARY: Denies any burning micturition, frequency, or urgency. MUSCULOSKELETAL/RHEUMATOLOGICAL: Denies any joint pain, swelling, or any muscle pain. ENDOCRINE: Denies any polyuria or polydipsia. Past Medical History Past Medical History: Asthma, Heart Failure, GERD/Reflux, Hyperlipidemia, Memory Impairment Additional Past Medical History / Comment(s): Down syndrome/IQ of about 74, chronic feet issue d/t gout, SHARRI but pt unable to tolerate CPAP, History of Any Multi-Drug Resistant Organisms: None Reported Past Surgical History: Ear Surgery Additional Past Surgical History / Comment(s): Tubes in ears, eye sx-family believes due to weak muscles, cyst removed from back Past Anesthesia/Blood Transfusion Reactions: No Reported Reaction Past Psychological History: No Psychological Hx Reported Additional Psychological History / Comment(s): Pt resides with his mother who is his legal gaurdian and home office representative. She helps him with his ADLs and manages his medications. Pt uses a walker or cane if his gout is flared up in his feet. Mother takes him to appts. Pt is continent and able to feed himself. Smoking Status: Second hand smoke exposure Past Alcohol Use History: None Reported Past Drug Use History: None Reported - Past Family History Mother Family Medical History: Congestive Heart Failure (CHF), GERD/Reflux Additional Family Medical History / Comment(s): Vivienne Medications and Allergies Home Medications Medication Instructions Recorded Confirmed Type Atorvastatin [Lipitor] 40 mg PO DAILY 01/11/16 12/15/21 History Famotidine [Pepcid] 20 mg PO DAILY 01/11/16 12/15/21 History Acetaminophen Tab [Tylenol] 650 mg PO Q6HR PRN tab 11/13/21 12/15/21 Rx Budesonide-Formot 160-4.5 Mcg 2 puff INHALATION RT-BID 30 Days 11/13/21 12/15/21 Rx [Symbicort 160-4.5 Mcg Inhaler] #1 gm Ipratropium-Albuterol Nebulize 3 ml INHALATION RT-QID 30 Days #90 11/13/21 12/15/21 Rx [Duoneb 0.5 mg-3 mg/3 ml Soln] ml Sodium Chloride 0.65% Nasal [Deep 2 spr NASAL QID PRN 12/15/21 12/15/21 History Sea (Saline)] Spironolactone [Aldactone] 25 mg PO MOWEFR 12/15/21 12/15/21 History Allergies Allergy/AdvReac Type Severity Reaction Status Date / Time No Known Allergies Allergy Verified 12/15/21 15:16 Physical Exam Vitals: Vital Signs Temp Pulse Pulse Resp BP BP Pulse Ox 12/16/21 09:11 80 12/16/21 08:59 84 12/16/21 03:00 98.3 F 70 24 121/55 96 12/15/21 23:57 80 12/15/21 23:48 78 12/15/21 23:35 98.2 F 79 26 H 118/58 93 L 12/15/21 23:05 76 20 112/60 91 L 12/15/21 18:54 78 26 H 107/90 80 L 12/15/21 15:54 80 18 12/15/21 15:47 80 18 12/15/21 15:05 71 28 H 101/65 82 L 12/15/21 14:06 26 H 12/15/21 13:31 98.4 F 76 22 141/97 88 L Intake and Output 12/15/21 12/16/21 12/16/21 22:59 06:59 14:59 Intake Total 118 Output Total 1800 Balance -1800 118 Intake: Oral 118 Output: Urine 1800 Other: Voiding Method Urinal Weight 136.078 kg 115.5 kg -GENERAL: The patient is alert and oriented x1 to place only partially, not in any acute distress. Morbidly obese HEENT: Pupils are round and equally reacting to light. EOMI. No scleral icterus. No conjunctival pallor. Normocephalic, atraumatic. No pharyngeal erythema. No thyromegaly. CARDIOVASCULAR: S1 and S2 present. No murmurs, rubs, or gallops. PULMONARY: Chest is clear to auscultation, no wheezing or crackles. ABDOMEN: Soft, nontender, nondistended, normoactive bowel sounds. No palpable organomegaly. MUSCULOSKELETAL: No joint swelling or deformity. EXTREMITIES: No cyanosis, clubbing, or pedal edema. NEUROLOGICAL: Gross neurological examination did not reveal any focal deficits. SKIN: No rashes. no petechiae. Results CBC & Chem 7: 12/15/21 14:06 12/16/21 07:35 Labs: Abnormal Lab Results - Last 24 Hours (Table) 12/15/21 12/15/21 12/15/21 Range/Units 14:06 14:06 14:06 WBC 11.7 H (3.8-10.6) k/uL MCHC 30.8 L (31.0-37.0) g/dL RDW 23.2 H (11.5-15.5) % Neutrophils # 8.7 H (1.3-7.7) k/uL PT 12.4 H (9.0-12.0) sec INR 1.2 H (<1.2) D-Dimer (<0.60) mg/L FEU Sodium (137-145) mmol/L Chloride 90 L (98-107) mmol/L Carbon Dioxide 39 H (22-30) mmol/L BUN 29 H (9-20) mg/dL Creatinine (0.66-1.25) mg/dL Glucose 106 H (74-99) mg/dL Calcium (8.4-10.2) mg/dL AST 642 H (17-59) U/L ALT 1133 H (4-49) U/L Alkaline Phosphatase 148 H (38-126) U/L Troponin I (0.000-0.034) ng/mL Albumin 3.4 L (3.5-5.0) g/dL 12/15/21 12/15/21 12/15/21 Range/Units 14:06 14:06 20:28 WBC (3.8-10.6) k/uL MCHC (31.0-37.0) g/dL RDW (11.5-15.5) % Neutrophils # (1.3-7.7) k/uL PT (9.0-12.0) sec INR (<1.2) D-Dimer 3.44 H (<0.60) mg/L FEU Sodium (137-145) mmol/L Chloride (98-107) mmol/L Carbon Dioxide (22-30) mmol/L BUN (9-20) mg/dL Creatinine (0.66-1.25) mg/dL Glucose (74-99) mg/dL Calcium (8.4-10.2) mg/dL AST (17-59) U/L ALT (4-49) U/L Alkaline Phosphatase (38-126) U/L Troponin I 0.408 H* 0.282 H* (0.000-0.034) ng/mL Albumin (3.5-5.0) g/dL 12/15/21 12/16/21 Range/Units 23:40 07:35 WBC (3.8-10.6) k/uL MCHC (31.0-37.0) g/dL RDW (11.5-15.5) % Neutrophils # (1.3-7.7) k/uL PT (9.0-12.0) sec INR (<1.2) D-Dimer (<0.60) mg/L FEU Sodium 134 L (137-145) mmol/L Chloride 87 L (98-107) mmol/L Carbon Dioxide 42 H* (22-30) mmol/L BUN (9-20) mg/dL Creatinine 0.61 L (0.66-1.25) mg/dL Glucose 143 H (74-99) mg/dL Calcium 8.0 L (8.4-10.2) mg/dL AST (17-59) U/L ALT (4-49) U/L Alkaline Phosphatase (38-126) U/L Troponin I 0.255 H* (0.000-0.034) ng/mL Albumin (3.5-5.0) g/dL Thrombosis Risk Factor Assmnt - Choose All That Apply Each Factor Represents 1 point: Age 41-60 years, Obesity (BMI >25) Thrombosis Risk Factor Assessment Total Risk Factor Score: 2 Thrombosis Risk Factor Assessment Level: Low Risk Assessment and Plan Assessment: Mostly acute congestive heart failure with ejection fraction 50-55% Elevated troponin elevated d-dimer Elevated liver enzymes just x-ray shown progressive patchy perihilar and basilar infiltrate noted CTA of the chest showing no pulmonary embolism, moderate pulmonary interstitial edema in the mid and lower lung colon Memory problem most likely related to yearly Alzheimer's dementia, given his his tory of Down syndrome. Down syndrome History of asthma History of GERD History of memory impairment History of obstructive sleep apnea, not on CPAP, cannot tolerate. History of gout Plan: This is a pleasant 46 years old male with Down syndrome who presents with acute CHF Continue with Lasix IV 40 mg twice daily Continue with aspirin Repeat labs, proBNP, procalcitonin, TSH. Echocardiogram Cartilage consult Pulmonary consult Labs and medication were reviewed.. Continue same treatment. Continue with symptomatic treatment. Resume home medication. Monitor lytes and vitals. DVT and GI prophylaxis. Further recommendationsas per clinical course of the patient DVT prophylaxis: Subcutaneous heparin GI Prophylaxis: Pepcid PT/OT: Pending Prognosis is guarded
--- NOTE | 2021-12-16 12:12 | US ---
EXAMINATION TYPE: US venous doppler duplex LE DATE OF EXAM: 12/16/2021 11:46 AM COMPARISON: NONE CLINICAL HISTORY: leg swelling. Bilateral swelling, SOB SIDE PERFORMED: Bilateral TECHNIQUE: The lower extremity deep venous system is examined utilizing real time linear array sonog shayla with graded compression, doppler sonography and color-flow sonography. VESSELS IMAGED: Common Femoral Vein Deep Femoral Vein Greater Saphenous Vein * Femoral Vein Popliteal Vein Small Saphenous Vein * Proximal Calf Veins (* superficial vessels) Limited exam due to patient body habitus. Bilaterally: Grayscale, color doppler, spectral doppler imaging performed of the deep veins of the lo wer extremities. There is normal flow, compressibility, vascular waveforms. IMPRESSION: Limited exam due to patient body habitus. Within the limitation of the study, no sonographic findings of deep vein thrombosis of the lower extremities
--- NOTE | 2021-12-16 16:27 | P.CNPUL ---
History of Present Illness Consult date: 12/16/21 Requesting physician: Salazar Matias Reason for consult: dyspnea, abnormal CXR/CT Chief complaint: Shortness of breath History of present illness: This is a pleasant 46-year-old male patient with a history of Down syndrome, diastolic congestive heart failure, recurrent aspiration pneumonias, obstructive sleep apnea intolerant to CPAP, hyperlipidemia, gastroesophageal reflux disease. He follows with Dr. Quintanilla as his primary care provider. He was recently here for almost a month for multifactorial issues regarding shortness of breath secondary to diastolic congestive heart failure aspiration pneumonia and hypoventilation syndrome. He was discharged on 11/13/2021. He was brought back to the emergency room yesterday with increasing shortness of breath. X-ray showed progressive patchy perihilar and basilar infiltrates compared to 11/11/2021. CT angiogram revealed no evidence of pulmonary embolism. There is moderate pulmonary interstitial edema in the mid and lower lung colon. Pre vious echocardiogram revealed preserved left ventricular systolic function with ejection fraction 50-55%. Lower extremities negative for DVTs. White count 11.7. Hemoglobin 14.8. INR 1.2. D-dimer 3.44. Sodium 134. Potassium 3.9. Chloride 87. Bicarb 42. BUN 18. Creatinine 0.61. Glucose 143. Troponins 0.40, 0.28, 0.25. ProBNP 3290. Urinalysis clean. Chavira virus by PCR not detected. Pro-calcitonin pending. He's been initiated on DuoNeb inhalations, Symbicort. Lasix 40 mg by mouth every 8 hours. Aldactone. Review of Systems ROS unobtainable: due to mental status Past Medical History Past Medical History: Asthma, Heart Failure, GERD/Reflux, Hyperlipidemia, Memory Impairment Additional Past Medical History / Comment(s): Down syndrome/IQ of about 74, chronic feet issue d/t gout, SHARRI but pt unable to tolerate CPAP, History of Any Multi-Drug Resistant Organisms: None Reported Past Surgical History: Ear Surgery Additional Past Surgical History / Comment(s): Tubes in ears, eye sx-family believes due to weak muscles, cyst removed from back Past Anesthesia/Blood Transfusion Reactions: No Reported Reaction Past Psychological History: No Psychological Hx Reported Additional Psychological History / Comment(s): Pt resides with his mother who is his legal gaurdian and sheet pile driver operator. She helps him with his ADLs and manages his medications. Pt uses a walker or cane if his gout is flared up in his feet. Mother takes him to appts. Pt is continent and able to feed himself. Smoking Status: Second hand smoke exposure Past Alcohol Use History: None Reported Past Drug Use History: None Reported - Past Family History Mother Family Medical History: Congestive Heart Failure (CHF), GERD/Reflux Additional Family Medical History / Comment(s): Vivienne Medications and Allergies Home Medications Medication Instructions Recorded Confirmed Type Atorvastatin [Lipitor] 40 mg PO DAILY 01/11/16 12/15/21 History Famotidine [Pepcid] 20 mg PO DAILY 01/11/16 12/15/21 History Acetaminophen Tab [Tylenol] 650 mg PO Q6HR PRN tab 11/13/21 12/15/21 Rx Budesonide-Formot 160-4.5 Mcg 2 puff INHALATION RT-BID 30 Days 11/13/21 12/15/21 Rx [Symbicort 160-4.5 Mcg Inhaler] #1 gm Ipratropium-Albuterol Nebulize 3 ml INHALATION RT-QID 30 Days #90 11/13/21 12/15/21 Rx [Duoneb 0.5 mg-3 mg/3 ml Soln] ml Sodium Chloride 0.65% Nasal [Deep 2 spr NASAL QID PRN 12/15/21 12/15/21 History Sea (Saline)] Spironolactone [Aldactone] 25 mg PO MOWEFR 12/15/21 12/15/21 History Allergies Allergy/AdvReac Type Severity Reaction Status Date / Time No Known Allergies Allergy Verified 12/15/21 15:16 Physical Exam Vitals: Vital Signs Temp Pulse Pulse Resp BP BP Pulse Ox 12/16/21 14:00 72 20 12/16/21 12:31 86 12/16/21 12:23 86 12/16/21 12:00 72 98/49 95 12/16/21 09:11 80 12/16/21 08:59 84 12/16/21 08:00 98.3 F 78 20 99/55 90 L 12/16/21 03:00 98.3 F 70 24 121/55 96 12/15/21 23:57 80 12/15/21 23:48 78 12/15/21 23:35 98.2 F 79 26 H 118/58 93 L 12/15/21 23:05 76 20 112/60 91 L 12/15/21 18:54 78 26 H 107/90 80 L Intake and Output 12/16/21 12/16/21 12/16/21 06:59 14:59 22:59 Intake Total 358 Output Total 1800 1200 Balance -1800 358 -1200 Intake: Oral 358 Output: Urine 1800 1200 Other: Voiding Method Urinal Urinal # Voids 2 Weight 136.078 kg 115.5 kg GENERAL EXAM: Alert, pleasant 46-year-old male patient, features of Down sy ndrome noted, upon AirVo high flow oxygen at 60 L and 90% FiO2, sitting up in bed, having lunch, comfortable in no apparent distress. HEAD: Normocephalic. EYES: Normal reaction of pupils, equal size. NOSE: Clear with pink turbinates. THROAT: No erythema or exudates. NECK: No masses, no JVD. CHEST: No chest wall deformity. LUNGS: Equal air entry with crackles in the bilateral bases. CVS: S1 and S2 normal with no audible murmur, regular rhythm. ABDOMEN: No hepatosplenomegaly, normal bowel sounds, no guarding or rigidity. SPINE: No scoliosis or deformity SKIN: No rashes CENTRAL NERVOUS SYSTEM: No focal deficits, tone is normal in all 4 extremities. EXTREMITIES: There is 1+ peripheral edema. No clubbing, no cyanosis. Peripheral pulses are intact. Results - Laboratory Findings CBC and BMP: 12/15/21 14:06 12/16/21 07:35 PT/INR, D-dimer PT 12.4 sec (9.0-12.0) H 12/15/21 14:06 INR 1.2 (<1.2) H 12/15/21 14:06 D-Dimer 3.44 mg/L FEU (<0.60) H 12/15/21 14:06 Abnormal lab findings: Abnormal Labs 12/15/21 12/15/21 12/15/21 14:06 14:06 14:06 WBC 11.7 H MCHC 30.8 L RDW 23.2 H Neutrophils # 8.7 H PT 12.4 H INR 1.2 H D-Dimer Sodium Chloride 90 L Carbon Dioxide 39 H BUN 29 H Creatinine Glucose 106 H Calcium AST 642 H ALT 1133 H Alkaline Phosphatase 148 H Troponin I Albumin 3.4 L 12/15/21 12/15/21 12/15/21 14:06 14:06 20:28 WBC MCHC RDW Neutrophils # PT INR D-Dimer 3.44 H Sodium Chloride Carbon Dioxide BUN Creatinine Glucose Calcium AST ALT Alkaline Phosphatase Troponin I 0.408 H* 0.282 H* Albumin 12/15/21 12/16/21 23:40 07:35 WBC MCHC RDW Neutrophils # PT INR D-Dimer Sodium 134 L Chloride 87 L Carbon Dioxide 42 H* BUN Creatinine 0.61 L Glucose 143 H Calcium 8.0 L AST ALT Alkaline Phosphatase Troponin I 0.255 H* Albumin - Diagnostic Findings Chest x-ray: image reviewed CT scan - chest: image reviewed Assessment and Plan Assessment: 1 Acute hypoxemic respiratory failure secondary to an acute exacerbation of diastolic congestive heart failure. Echocardiogram with preserved left ventricular systolic function. No evidence of pulmonary embolism. No clear evidence of aspiration pneumonia. Procalcitonin is pending. 2 Acute hypercapnic respiratory failure secondary to obesity/hypoventilation syndrome 3 Obstructive sleep apnea intolerant to CPAP 4 Morbid obesity with a BMI of 43.7 kg per metered squared 5 History of Down syndrome 6 Hyperlipidemia 7 Recent hospitalization for nearly one month secondary to hypoxemic/hypercapnic respiratory failure with acute lung injury and diastolic congestive heart failure Plan: The patient was seen and evaluated CAT scan, chest x-ray and labs reviewed Tolerates AirVo high flow oxygen better than BiPap Titrate the FiO2 as tolerated Pro calcitonin pending Continue oral diuretics Continue bronchodilators Aspiration precautions We will continue to follow and make further recommendations based on his clinical status I, the cosigning physician, performed a history & physical examination of the patient. Lungs sounds with crackles in the bilateral bases. Maintaining good O2 saturations in the 90s on AirVo high flow oxygen at 60 L and 90% FiO2. I discussed the assessment and plan of care with my nurse practitioner, Capri Hillman. I attest to the above consultation as dictated by her. I have personally seen and examined the patient, performed the documentation and the assessment and plan as written. Number of minutes spent on the visit: 20.
[2021-12-16] MEDS: SYMBICORT 160-4.5 MCG INHALER INHALATION SCH (20:46)
[2021-12-17] MEDS: SYMBICORT 160-4.5 MCG INHALER INHALATION SCH ×2 (08:44→20:39)
[2021-12-17] MEDS: IPRATROPIUM-ALBUTEROL 3 ML NEB INHALATION SCH ×4 (08:44→20:39)
[2021-12-17] MEDS: SPIRONOLACTONE 25 MG TAB PO SCH (09:13)
[2021-12-17] MEDS: FUROSEMIDE 40 MG TAB PO SCH ×3 (09:14→23:41)
[2021-12-17] MEDS: ASPIRIN 325 MG TAB PO SCH (09:14)
[2021-12-17] MEDS: ATORVASTATIN 40 MG TAB PO SCH (09:14)
[2021-12-17 09:18] LABS: Anisocytosis Moderate; Basophils # (A) 0.1 k/uL (0-0.2); Basophils % (A) 1 %; Eosinophils # (A) 0.2 k/uL (0-0.7); Eosinophils % (A) 2 %; HCT 51.7 % (39.0-53.0); HGB 15.8 gm/dL (13.0-17.5); Hypochromasia Marked; Lymphocytes % (A) 28 %; MCH 29.8 pg (25.0-35.0); MCHC 30.5 g/dL (31.0-37.0); MCV 97.6 fL (80.0-100.0); Macrocytosis Moderate; Mean Platelet Volume 8.7; Monocytes # (A) 0.4 k/uL (0-1.0); Monocytes % (A) 6 %; Neutrophils # (A) 4.3 k/uL (1.3-7.7); Neutrophils % (A) 61 %; Platelet Count 188 k/uL (150-450); Poikilocytosis Slight; RBC 5.29 m/uL (4.30-5.90); RDW 23.6 % (11.5-15.5); WBC 7.2 k/uL (3.8-10.6)
[2021-12-17] MEDS: NITROGLYCERIN OINT 1 INCH/GM PACKET TOPICAL SCH ×4 (09:18→21:34)
[2021-12-17 09:30] LABS: ALT 591 U/L (4-49); AST 164 U/L (17-59); African American GFR (CKD) >90 (>60 ml/min/1.73 sqM); Albumin 3.1 g/dL (3.5-5.0); Alkaline Phosphatase 116 U/L (38-126); Blood Urea Nitrogen 13 mg/dL (9-20); Calcium 8.2 mg/dL (8.4-10.2); Chloride 89 mmol/L (98-107); Glucose 119 mg/dL (74-99); Non-African American GFR(CKD) >90 (>60 ml/min/1.73 sqM); Potassium 3.9 mmol/L (3.5-5.1); Sodium 138 mmol/L (137-145); Total Bilirubin 0.9 mg/dL (0.2-1.3); Total Protein 6.9 g/dL (6.3-8.2)
[2021-12-17 09:54] LABS: Anion Gap 12 mmol/L
[2021-12-17 09:56] LABS: Carbon Dioxide 37 mmol/L (22-30)
--- NOTE | 2021-12-17 10:00 | XR ---
EXAMINATION TYPE: XR chest 1V portable DATE OF EXAM: 12/17/2021 Comparison: 12/15/2021 Clinical History: 46-year-old male CHF follow up Findings: Heart remains moderately enlarged. Interstitial changes and patchy mid and lower lung opacities persi st. Patchy densities have overall slightly worsened compared to 12/15/2021. No sizable pleural effusio n on the frontal view. Impression: Cardiomegaly and slight interval increase in mid and lower lung airspace disease. Findings could refl ect sequela of atypical/COVID pneumonia versus CHF.
--- NOTE | 2021-12-17 11:41 | P.PN ---
Subjective This is a pleasant 46 years old male with past medical history of Asthma, GERD/Reflux, Hyperlipidemia, Memory Impairment, Down syndrome/IQ of about 74, chronic feet issue d/t gout, SHARRI but pt unable to tolerate CPAP Patient is poor historian, sitting in bed eating his breakfast with no difficulty on high flow nasal cannula, he can tell me he is in the hospital but he could not recognize which hospital, the date or the name of the president. When I ask her most recently came to the hospital he points to his right forearm block stating it is because of this. However patient states that his breathing is better now and he denies chest pain or abdominal pain or any other complaints He denies smoking, alcohol or illicit drugs. Patient is hypoxic on the presentation, with oxygen saturating 88% on 4 L and 82% on 50 L, currently on high flow nasal cannula 55%. Afebrile, tachypneic. Has leukocytosis of 11.7, rest of CBC is unremarkable. INR is 1.2 D-dimer is 3.4. BMP is unremarkable, liver enzymes significantly elevated with AST 642 and ALT 1133. Troponin is elevated at 0.4 and 0.2. Urine analysis is not suspicious of infection. Coronal versus nondetected. EKG: Normal sinus rhythm at [address]-T abnormality. Patient was started on aspirin 325 mg, IV Lasix and then oral Lasix 40 mg every 8 hours, bronchodilator. With cardiology team consulted Echocardiogram done on 09/2021 showing preserved ejection fraction of 50-55%. 12/17/2021 Can awake but sleepy, he follows commands. He still slightly tachypneic. He remains on high flow oxygen via nasal cannula at 60 L/m. Chest x-ray showed slight increase in the mid and lower lung zones Pro-calcitonin only mildly elevated 0.12, proBNP is normal which goes against CHF at 323 We are going to recheck cold, influenza and RSV Objective - Vital Signs Vital signs: Vital Signs Temp 98.6 F 12/17/21 04:22 Pulse 72 12/17/21 08:58 Resp 22 12/17/21 04:22 BP 111/61 12/17/21 04:22 Pulse Ox 95 12/17/21 04:22 Intake & Output 12/16/21 12/17/21 12/17/21 18:59 06:59 18:59 Intake Total 358 Output Total 1200 1350 Balance -842 -1350 Weight 115.5 kg Intake: Oral 358 Output: Urine 1200 1350 Other: Voiding Method Urinal Urinal # Voids 2 - Exam -GENERAL: The patient is alert and oriented x3, drowsy, not in any acute distress. Obese, generally tired HEENT: Pupils are round and equally reacting to light. EOMI. No scleral icterus. No conjunctival pallor. Normocephalic, atraumatic. No pharyngeal erythema. No thyromegaly. CARDIOVASCULAR: S1 and S2 present. No murmurs, rubs, or gallops. -PULMONARY: Chest is clear to auscultation, no wheezing or crackles. Mildly tachypneic ABDOMEN: Soft, nontender, nondistended, normoactive bowel sounds. No palpable organomegaly. MUSCULOSKELETAL: No joint swelling or deformity. EXTREMITIES: No cyanosis, clubbing, or pedal edema. NEUROLOGICAL: Gross neurological examination did not reveal any focal deficits. SKIN: No rashes. no petechiae. - Labs CBC & Chem 7: 12/17/21 08:30 12/17/21 08:30 Labs: Abnormal Lab Results - Last 24 Hours (Table) 12/17/21 12/17/21 12/17/21 Range/Units 08:30 08:30 08:30 MCHC 30.5 L (31.0-37.0) g/dL RDW 23.6 H (11.5-15.5) % Chloride 89 L (98-107) mmol/L Carbon Dioxide 37 H (22-30) mmol/L Creatinine 0.57 L (0.66-1.25) mg/dL Glucose 119 H (74-99) mg/dL Calcium 8.2 L (8.4-10.2) mg/dL AST 164 H (17-59) U/L ALT 591 H (4-49) U/L Albumin 3.1 L (3.5-5.0) g/dL Procalcitonin 0.12 H (0.02-0.09) ng/mL Assessment and Plan Assessment: Hypoxia, acute. Of unknown etiology. acute on chronic diastolic congestive heart failure with ejection fraction 50-55% is suspected but proBNP is normal. Rule out viral infection. Elevated troponin elevated d-dimer with no evidence of PE or DVT Elevated liver enzymes , improving CTA of the chest showing no pulmonary embolism, moderate pulmonary interstitial edema in the mid and lower lung colon Memory problem most likely related to yearly Alzheimer's dementia, given his history of Down syndrome. Down syndrome History of asthma History of GERD History of memory impairment History of obstructive sleep apnea, not on CPAP, cannot tolerate. History of gout Plan: This is a pleasant 46 years old male with Down syndrome who presents with acute CHF Continue with Lasix by mouth 40 mg 3 times a day per coffee roaster helper Test for covert, troponins and RSV Continue with aspirin cardiology e consult Pulmonary consult Labs and medication were reviewed.. Continue same treatment. Continue with symptomatic treatment. Resume home medication. Monitor lytes and vitals. DVT and GI prophylaxis. Further recommendationsas per clinical course of the patient DVT prophylaxis: Subcutaneous heparin GI Prophylaxis: Pepcid PT/OT: Pending Prognosis is guarded
--- NOTE | 2021-12-17 11:58 | P.PN ---
Subjective Progress Note Date: 12/17/21 HISTORY OF PRESENT ILLNESS This is a 46-year-old male with history of Down syndrome, recent hospitalization in October of this year at which time he was treated for acute hypoxic respiratory failure related to pneumonia and acute diastolic heart failure. Echocardiogram had revealed EF of 50-55%, technically difficult study. The patient is a poor historian and unable to obtain history. Patient presented to the emergency center due to increasing shortness of breath and drop in pulse ox to 82% with oxygen. CO2 was 39, WBC 11.7, hemoglobin 14.8. BUN 29 creatinine 0.78. Liver function tests were quite elevated with AST of 642, ALT 1133 and alkaline phosphatase 148. Lactic acid 1.2. ProBNP 3290. Troponin 0.408, 0.282, 0.255. D-dimer 3.44. Chronic virus PCR not detected. EKG was a sinus rhythm. CT angiogram of the chest showed no evidence of pulmonary embolism. Moderate pulmonary interstitial edema in the mid and lower lung colon. Chest x-ray reveals progressive patchy perihilar and basilar infiltrates noted. 12/17: Patient appears to be quite sleepy today. He does open his eyes to verbal stimuli. He is on AirVO with pulse ox is 95%. Heart rate is running in the 60s and 70s, blood pressure 111/61. He is currently on Lasix 40 mg IV every 8 hours and repeat chest x-ray ordered and revealed cardiomegaly with slight interval increase in mid and lower lung airspace disease. Findings could reflect atypical/coven pneumonia versus heart failure. No change in medications today. PHYSICAL EXAMINATION Gen: This is a 46 year old male resting in bed currently receiving nebulizer t reatment VS: Afebrile, heart rate in the 80s, blood pressure 121/55, pulse ox 96% on high flow nasal cannula HEENT: Head is atraumatic, normocephalic. Pupils equal, round. Sclerae is anicteric. NECK: Supple. No JVD. No lymphadenopathy. No thyromegaly. LUNGS: Bilateral scattered rhonchi. No intercostal retractions. HEART: Distant heart sounds, Regular rate and rhythm. No murmur. ABDOMEN: Soft. Bowel sounds are present. No masses. No tenderness. EXTREMITIES: No pedal edema. No calf tenderness. NEUROLOGICAL: Patient is awake, alert. ASSESSMENT Acute on chronic hypoxic respiratory failure, on home O2 at 2 L Acute on chronic diastolic heart failure Elevated troponin secondary to heart failure Pneumonia Down syndrome Sleep apnea PLAN Continue patient on Lasix 40 mg oral every 8 hours, tinea Aldactone 12.5 mg daily and lisinopril 2.5 mg daily Continue patient on aspirin, atorvastatin Obtain 2-D echocardiogram and Doppler study to assess cardiac structure and function-report is pending Further recommendations to follow based upon clinical course Thank you kindly for this consultation. Nurse practitioner note has been reviewed, I agree with documented findings and plan of care. Patient was seen and examined. Objective - Vital Signs Vital signs: Vital Signs Temp 98.6 F 12/17/21 04:22 Pulse 66 12/17/21 04:22 Resp 22 12/17/21 04:22 BP 111/61 12/17/21 04:22 Pulse Ox 95 12/17/21 04:22 Intake & Output 12/16/21 12/17/21 12/17/21 18:59 06:59 18:59 Intake Total 358 Output Total 1200 1350 Balance -842 -1350 Weight 115.5 kg Intake: Oral 358 Output: Urine 1200 1350 Other: Voiding Method Urinal Urinal # Voids 2 - Labs CBC & Chem 7: 12/17/21 08:30 12/17/21 08:30
--- NOTE | 2021-12-17 16:14 | P.PN ---
Subjective Progress Note Date: 12/17/21 Principal diagnosis: Shortness of breath. This is a pleasant 46-year-old male patient with a history of Down syndrome, diastolic congestive heart failure, recurrent aspiration pneumonias, obstructive sleep apnea intolerant to CPAP, hyperlipidemia, gastroesophageal reflux disease. He follows with Dr. Quintanilla as his primary care provider. He was recently here for almost a month for multifactorial issues regarding shortness of breath secondary to diastolic congestive heart failure aspiration pneumonia and hypoventilation syndrome. He was discharged on 11/13/2021. He was brought back to the emergency room yesterday with increasing shortness of breath. X-ray showed progressive patchy perihilar and basilar infiltrates compared to 11/11/2021. CT angiogram revealed no evidence of pulmonary embolism. There is moderate pulmonary interstitial edema in the mid and lower lung colon. Previous echocardiogram revealed preserved left ventricular systolic function with ejection fraction 50-55%. Lower extremities negative for DVTs. White count 11.7. Hemoglobin 14.8. INR 1.2. D-dimer 3.44. Sodium 134. Potassium 3.9. Chloride 87. Bicarb 42. BUN 18. Creatinine 0.61. Glucose 143. Troponins 0.40, 0.28, 0.25. ProBNP 3290. Urinalysis clean. Chavira virus by PCR not detected. Pro-calcitonin pending. He's been initiated on DuoNeb inhalations, Symbicort. Lasix 40 mg by mouth every 8 hours. Aldactone. Progress note dated 12/17/2021. 46-year-old male with history of down syndrome, diastolic CHF, recurrent aspiration pneumonia, sleep apnea, hyperlipidemia, and GERD. His primary care physician is Dr. Quintanilla. He was recently here for almost a month for shortness of breath, secondary to CHF. At that time, he was also thought to have aspiration pneumonia. He was finally discharged on 11/13/2021. He was brought back to the emergency room, 2 days ago, with increasing shortness of breath, and diffuse bilateral infiltrates. There was no pulmonary embolism on CT angiogram. Currently, the patient is on AIRVO, at 60 L/m with an FiO2 of 90%. He's not r eceiving any IV fluids. His nurse held his nitroglycerin this morning, because his blood pressure was a bit soft. Labs today include a white count of 7.2, hemoglobin 15.8, hematocrit 51.7, and a platelet count of 188,000. Sodium was 138, potassium 3.9, chloride 99, CO2 37, anion gap 12, BUN 13, creatinine 0.57. AST was 164 and ALT was 591. Troponins were 0.282 and 0.255. Urine was negative. Chest x-ray was consistent with cardiomegaly, and pulmonary vascular congestion/CHF. Objective - Vital Signs Vital signs: Vital Signs Temp 97.7 F 12/17/21 08:00 Pulse 72 12/17/21 14:00 Resp 22 12/17/21 14:00 BP 89/52 12/17/21 12:00 Pulse Ox 92 L 12/17/21 12:00 Intake & Output 12/16/21 12/17/21 12/17/21 18:59 06:59 18:59 Intake Total 358 240 Output Total 1200 1350 Balance -842 -1350 240 Weight 115.5 kg Intake: Oral 358 240 Output: Urine 1200 1350 Other: Voiding Method Urinal Urinal Urinal # Voids 2 - Exam No acute distress, currently on AIRVO, without obvious respiratory distress. HEENT examination is grossly unremarkable. Neck supple. Full range of motion. No adenopathy thyromegaly or neck vein distention. Cardiovascular examination reveals regular rhythm rate. S1-S2 normal. No S3 or S4. No discernible murmur noted. Heart sounds are distant. Heart rate 100 bpm. Lungs reveal scattered bilateral rhonchi, and bibasilar crackles. No wheezes. Breath sounds equal bilaterally. Saturations are 92% on AIRVO. Abdomen soft bowel sounds are heard. No masses or tenderness. Extremities are intact. 1+ peripheral edema is noted. No cyanosis or clubbing. Skin is without rash or lesion. Neurologic examination is brief but nonfocal. - Labs CBC & Chem 7: 12/17/21 08:30 12/17/21 08:30 Labs: Abnormal Lab Results - Last 24 Hours (Table) 12/17/21 12/17/21 12/17/21 Range/Units 08:30 08:30 08:30 MCHC 30.5 L (31.0-37.0) g/dL RDW 23.6 H (11.5-15.5) % Chloride 89 L (98-107) mmol/L Carbon Dioxide 37 H (22-30) mmol/L Creatinine 0.57 L (0.66-1.25) mg/dL Glucose 119 H (74-99) mg/dL Calcium 8.2 L (8.4-10.2) mg/dL AST 164 H (17-59) U/L ALT 591 H (4-49) U/L Albumin 3.1 L (3.5-5.0) g/dL Procalcitonin 0.12 H (0.02-0.09) ng/mL Assessment and Plan Assessment: 1 Acute hypoxemic respiratory failure secondary to an acute exacerbation of diastolic congestive heart failure. Echocardiogram with preserved left ventricular systolic function. No evidence of pulmonary embolism. No clear evidence of aspiration pneumonia. Procalcitonin was low. 2 Acute hypercapnic respiratory failure secondary to obesity/hypoventilation syndrome . 3 Obstructive sleep apnea intolerant to CPAP. 4 Morbid obesity with a BMI of 43.7 kg/m2 5 History of Down syndrome. 6 Hyperlipidemia. 7 Recent hospitalization for nearly one month secondary to hypoxemic/hypercapnic respiratory failure with acute lung injury and diastolic congestive heart failure. Plan: Plan dated 12/17/2021. The patient was evaluated. The patient's CAT scan and chest x-rays and labs are reviewed. The patient is currently on AIRVO, with adequate saturations. The pro-calcitonin level was very low. This would suggest no active infection. The patient continues on appropriate medications. We will continue to follow make recommendations where appropriate. Prognosis is guarded. Time with Patient: Less than 30
[2021-12-17] MEDS: HEPARIN SODIUM,PORCINE/PF 5,000 UNIT/0.5 ML SYRINGE SQ SCH (21:37)
[2021-12-17] MEDS: FAMOTIDINE 20 MG/2 ML VIAL IV SCH (21:37)
[2021-12-18] MEDS: SYMBICORT 160-4.5 MCG INHALER INHALATION SCH ×2 (07:58→19:25)
[2021-12-18] MEDS: IPRATROPIUM-ALBUTEROL 3 ML NEB INHALATION SCH ×4 (07:58→19:25)
--- NOTE | 2021-12-18 09:59 | CDI ---
Documentation Clarification Form Date: 12/18/2021 09:43:27 AM From: Haleigh Worthy CCS, CCDS Admit Date: 12/15/2021 08:10:00 PM Patient Name: Malik Wilson Visit Number: [id number] Discharge Date: ATTENTION: The Clinical Documentation Specialists (CDI) and [facility] Coding Staff appreciate your assistance in clarifying documentation. Please respond to the clarification below the line at the bottom and electronically sign. The CDI & [facility] Coding staff will review the response and follow-up if needed. Please note: Queries are made part of the Legal Health Record. If you have any questions, please contact the author of this message via ITS. Dr. Josafat Ames: Asthma, nos is documented in the Patient's Medical History in the 12/15 ED Note, the 12/16 H/P, the 12/16 Cardiology Consult and the 12/16 Pulmonary Consult without further specificity. Additional clarification regarding the type of asthma is requested. History/risk factors per the 12/16 H/P: Asthma, GERD, Hyperlipidemia, Memory Impairment, Down Syndrome, Gout, SHARRI on Home O2. Exposure to secondhand smoke. Clinical Indicators: Presented to the ED on 12/15 with SOB via EMS. History of Asthma & CHF, doubt Pneumonia, on home O2 2Lnc. Admit with Acute Pulmonary Edema, Acute Bronchospasm, NSTEMI, Hypoxemia 12/15 VS: T 98.4, P 76, R 22 - 26, BP 141/97, 101/65; PO 88 4Lnc, 82 15% vnm, BMI: 44.5 12/15 LAB: WBC 11.7, Neutrophils 8.7; PT 12.4, INR 1.2, d Dimer 3.44; Chloride 90, CO2 39, BUN 29, glucose 106, AST 642, ALT 1133, Alk Phos 148, Troponin 0.408, 0.255; Albumin 3.4 12/15 CXR: Progressive patchy perihilar & basilar infiltrates. CT Chest: No evidence of PE. Moderate pulmonary interstitial edema in the mid & lower lung colon. Treatment 12/15: CHF protocol, O2 2Lnc, IV Na Cl 1,000 mls @ 75 mls/hr q13H, INH Duoneb x1, IV Lasix 40 mg x1, po Aspirin. Home meds: Aldactone, Na Chloride nasal pray, INH Duoneb QID, INH Symbicort BID Please clarify the type and severity of asthma, if known: [ ] Extrinsic asthma [ ] with exacerbation [ ] without exacerbation [ ] Intrinsic asthma [ ] with exacerbation [ ] without exacerbation [ ] Mild intermittent asthma [ ] with exacerbation [ ] without exacerbation [ ] Mild persistent asthma [ ] with exacerbation [ ] without exacerbation [ ] Moderate persistent asthma [ ] with exacerbation [ ] without exacerbation [ ] Severe persistent asthma [ ] with exacerbation [ ] without exacerbation [ ] Other, please specify ____ [ ] Unable to determine (Template Last Revised: December 2020) Patient has never been seen in office. The type of asthma and severity of asthma cannot be determined. MTDD
[2021-12-18] MEDS: SPIRONOLACTONE 25 MG TAB PO SCH (10:18)
[2021-12-18] MEDS: FAMOTIDINE 20 MG/2 ML VIAL IV SCH (10:18)
[2021-12-18] MEDS: HEPARIN SODIUM,PORCINE/PF 5,000 UNIT/0.5 ML SYRINGE SQ SCH ×2 (10:19→21:02)
[2021-12-18] MEDS: NITROGLYCERIN OINT 1 INCH/GM PACKET TOPICAL SCH ×2 (10:19→12:34)
[2021-12-18] MEDS: ATORVASTATIN 40 MG TAB PO SCH (10:19)
[2021-12-18] MEDS: ASPIRIN 325 MG TAB PO SCH (10:19)
[2021-12-18] MEDS: FUROSEMIDE 40 MG TAB PO SCH ×2 (10:30→16:52)
--- NOTE | 2021-12-18 11:16 | P.PN ---
Subjective This is a pleasant 46 years old male with past medical history of Asthma, GERD/Reflux, Hyperlipidemia, Memory Impairment, Down syndrome/IQ of about 74, chronic feet issue d/t gout, SHARRI but pt unable to tolerate CPAP Patient is poor historian, sitting in bed eating his breakfast with no difficulty on high flow nasal cannula, he can tell me he is in the hospital but he could not recognize which hospital, the date or the name of the president. When I ask her most recently came to the hospital he points to his right forearm block stating it is because of this. However patient states that his breathing is better now and he denies chest pain or abdominal pain or any other complaints He denies smoking, alcohol or illicit drugs. Patient is hypoxic on the presentation, with oxygen saturating 88% on 4 L and 82% on 50 L, currently on high flow nasal cannula 55%. Afebrile, tachypneic. Has leukocytosis of 11.7, rest of CBC is unremarkable. INR is 1.2 D-dimer is 3.4. BMP is unremarkable, liver enzymes significantly elevated with AST 642 and ALT 1133. Troponin is elevated at 0.4 and 0.2. Urine analysis is not suspicious of infection. Coronal versus nondetected. EKG: Normal sinus rhythm at [address]-T abnormality. Patient was started on aspirin 325 mg, IV Lasix and then oral Lasix 40 mg every 8 hours, bronchodilator. With cardiology team consulted Echocardiogram done on 09/2021 showing preserved ejection fraction of 50-55%. 12/17/2021 Can awake but sleepy, he follows commands. He still slightly tachypneic. He remains on high flow oxygen via nasal cannula at 60 L/m. Chest x-ray showed slight increase in the mid and lower lung zones Pro-calcitonin only mildly elevated 0.12, proBNP is normal which goes against CHF at 323 We are going to recheck cold, influenza and RSV 12/18/2021 Patient is awaken although is sleeping a lot. He looks pleasant and answer questions however he looks confused for example when asking is this year house he said yes. History of on airvo Quiring 60 L/M with 90% oxygen. He is has proximal area with unknown reason. This Procalcitonin and proBNP are both low level. CTA is negative for PE. There is no evidence of wheezing. His CTA showing bilateral infiltrates and obesity may contribute to factor. Pulmonary and cardiology team on the case Currently he is on oral Lasix 40 mg twice a day, aspirin 325 mg and subcu heparin Viral test for Covid, influenza and RSV came back negative Objective - Vital Signs Vital signs: Vital Signs Temp 98.7 F 12/18/21 03:30 Pulse 82 12/18/21 08:11 Resp 23 12/18/21 03:30 BP 118/61 12/18/21 03:30 Pulse Ox 97 12/18/21 03:30 Intake & Output 12/17/21 12/18/21 12/18/21 18:59 06:59 18:59 Intake Total 1120 240 Output Total 625 875 Balance 9460 -310 -089 Weight 117.5 kg Intake: Oral 1120 240 Output: Urine 625 875 Other: Voiding Method Urinal Urinal - Exam -GENERAL: The patient is alert and oriented x3, drowsy, not in any acute distress. Obese, generally tired HEENT: Pupils are round and equally reacting to light. EOMI. No scleral icterus. No conjunctival pallor. Normocephalic, atraumatic. No pharyngeal erythema. No thyromegaly. CARDIOVASCULAR: S1 and S2 present. No murmurs, rubs, or gallops. -PULMONARY: Chest is clear to auscultation, no wheezing or crackles. Mildly tac hypneic ABDOMEN: Soft, nontender, nondistended, normoactive bowel sounds. No palpable organomegaly. MUSCULOSKELETAL: No joint swelling or deformity. EXTREMITIES: No cyanosis, clubbing, or pedal edema. NEUROLOGICAL: Gross neurological examination did not reveal any focal deficits. SKIN: No rashes. no petechiae. - Labs CBC & Chem 7: 12/17/21 08:30 12/17/21 08:30 Labs: Abnormal Lab Results - Last 24 Hours (Table) 12/17/21 Range/Units 08:30 Procalcitonin 0.12 H (0.02-0.09) ng/mL Assessment and Plan Assessment: Hypoxia, acute. Of unknown etiology. Elevated troponin , rn endoscopy on the case elevated d-dimer with no evidence of PE or DVT Elevated liver enzymes , improving CTA of the chest showing no pulmonary embolism, moderate pulmonary interstitial edema in the mid and lower lung colon Memory problem most likely related to yearly Alzheimer's dementia, given his history of Down syndrome. Down syndrome History of asthma History of GERD History of memory impairment History of obstructive sleep apnea, not on CPAP, cannot tolerate. History of gout Plan: This is a pleasant 46 years old male with Down syndrome who presents with acute CHF Continue with Lasix by mouth 40 mg 2 times a day Continue with aspirin cardiology e consult Pulmonary consult Labs and medication were reviewed.. Continue same treatment. Continue with sy mptomatic treatment. Resume home medication. Monitor lytes and vitals. DVT and GI prophylaxis. Further recommendationsas per clinical course of the patient DVT prophylaxis: Subcutaneous heparin GI Prophylaxis: Pepcid PT/OT: Pending Prognosis is guarded
--- NOTE | 2021-12-18 12:52 | P.PN ---
Subjective Progress Note Date: 12/18/21 HISTORY OF PRESENT ILLNESS: This is a 46-year-old male with history of Down syndrome, recent hospitalization in October of this year at which time he was treated for acute hypoxic r espiratory failure related to pneumonia and acute diastolic heart failure. Echocardiogram had revealed EF of 50-55%, technically difficult study. The patient is a poor historian and unable to obtain history. Patient presented to the emergency center due to increasing shortness of breath and drop in pulse ox to 82% with oxygen. CO2 was 39, WBC 11.7, hemoglobin 14.8. BUN 29 creatinine 0.78. Liver function tests were quite elevated with AST of 642, ALT 1133 and alkaline phosphatase 148. Lactic acid 1.2. ProBNP 3290. Troponin 0.408, 0.282, 0.255. D-dimer 3.44. Chronic virus PCR not detected. EKG was a sinus rhythm. CT angiogram of the chest showed no evidence of pulmonary embolism. Moderate pulmonary interstitial edema in the mid and lower lung colon. Chest x-ray reveals progressive patchy perihilar and basilar infiltrates noted. 12/17: Patient appears to be quite sleepy today. He does open his eyes to verbal stimuli. He is on AirVO with pulse ox is 95%. Heart rate is running in the 60s and 70s, blood pressure 111/61. He is currently on Lasix 40 mg IV every 8 hours and repeat chest x-ray ordered and revealed cardiomegaly with slight interval increase in mid and lower lung airspace disease. Findings could reflect atypical/coven pneumonia versus heart failure. No change in medications today. 12/18/2021 Patient examined this morning at the bedside. Patient denies chest pain or pressure. Denies shortness of breath. He remains on IV lasix. Vital signs are stable. PHYSICAL EXAM: VITAL SIGNS: Reviewed. GENERAL: Well-developed in no acute distress. NECK: Supple. No JVD or thyromegaly LUNGS: Respirations even and unlabored. Lungs essentially clear to auscultation bilaterally. HEART: Regular rate and rhythm. S1 and S2 heard. EXTREMITIES: Normal range of motion. No clubbing or cyanosis. Peripheral pulses intact. No lower extremity edema ASSESSMENT: Acute on chronic hypoxic respiratory failure, on home O2 at 2 L Acute on chronic diastolic heart failure Elevated troponin secondary to heart failure Pneumonia Down syndrome Sleep apnea PLAN: Continue current cardiac medications Discontinue IV lasix. Begin oral lasix 40mg BID Decrease aspirin to 81mg daily Discontinue nitro paste 2D echo ordered. Await results. Further recommendations pending patient course Nurse practitioner note has been reviewed by physician. Signing provider agrees with the documented findings, assessment, and plan of care. Objective - Vital Signs Vital signs: Vital Signs Temp 98.3 F 12/18/21 08:50 Pulse 76 12/18/21 11:55 Resp 16 12/18/21 11:50 BP 116/56 12/18/21 11:50 Pulse Ox 95 12/18/21 11:50 Intake & Output 12/17/21 12/18/21 12/18/21 18:59 06:59 18:59 Intake Total 1120 240 Output Total 625 1300 Balance 1120 -625 -1060 Weight 117.5 kg Intake: Oral 1120 240 Output: Urine 625 1300 Other: Voiding Method Urinal Urinal Urinal - Labs CBC & Chem 7: 12/17/21 08:30 12/17/21 08:30
--- NOTE | 2021-12-18 13:05 | P.PN ---
Subjective Progress Note Date: 12/18/21 Principal diagnosis: Shortness of breath, acute hypoxic respiratory failure This is a pleasant 46-year-old male patient with a history of Down syndrome, diastolic congestive heart failure, recurrent aspiration pneumonias, obstructive sleep apnea intolerant to CPAP, hyperlipidemia, gastroesophageal reflux disease. He follows with Dr. Quintanilla as his primary care provider. He was recently here for almost a month for multifactorial issues regarding shortness of breath secondary to diastolic congestive heart failure aspiration pneumonia and hypoventilation syndrome. He was discharged on 11/13/2021. He was brought back to the emergency room yesterday with increasing shortness of breath. X-ray showed progressive patchy perihilar and basilar infiltrates compared to 11/11/19. CT angiogram revealed no evidence of pulmonary embolism. There is moderate pulmonary interstitial edema in the mid and lower lung colon. Previous echocardiogram revealed preserved left ventricular systolic function with ejection fraction 50-55%. Lower extremities negative for DVTs. White count 11.7. Hemoglobin 14.8. INR 1.2. D-dimer 3.44. Sodium 134. Potassium 3.9. Chloride 87. Bicarb 42. BUN 18. Creatinine 0.61. Glucose 143. Troponins 0.40, 0.28, 0.25. ProBNP 3290. Urinalysis clean. Chavira virus by PCR not detected. Pro-calcitonin pending. He's been initiated on DuoNeb inhalations, Symbicort. Lasix 40 mg by mouth every 8 hours. Aldactone. Progress note dated 12/17/2021. 46-year-old male with history of down syndrome, diastolic CHF, recurrent aspiration pneumonia, sleep apnea, hyperlipidemia, and GERD. His primary care physician is Dr. Quintanilla. He was recently here for almost a month for shortness of breath, secondary to CHF. At that time, he was also thought to have aspiration pneumonia. He was finally discharged on 11/13/2021. He was brought back to the emergency room, 2 days ago, with increasing shortness of breath, and diffuse bilateral infiltrates. There was no pulmonary embolism on CT angiogram. Currently, the patient is on AIRVO, at 60 L/m with an FiO2 of 90%. He's not receiving any IV fluids. His nurse held his nitroglycerin this morning, because his blood pressure was a bit soft. Labs today include a white count of 7.2, hemoglobin 15.8, hematocrit 51.7, and a platelet count of 188,000. Sodium was 138, potassium 3.9, chloride 99, CO2 37, anion gap 12, BUN 13, creatinine 0.57. AST was 164 and ALT was 591. Troponins were 0.282 and 0.255. Urine was negative. Chest x-ray was consistent with cardiomegaly, and pulmonary vascular congestion/CHF. On 12/18/2021 patient seen in follow-up on selective care unit, he is currently on Airvo at 60 L and FiO2 of 92% and his pulse ox is greater than 97% and this can probably be weaned further down, he is awake and alert, oriented 3, breathing comfortably he is resting in bed watching TV. He is pleasant and cooperative. he remains on oral Lasix at 40 mg every 12 hours, he is m aintaining negative fluid balance of -625 mL over the last 24 hours. Chest x- ray findings were consistent with acute exacerbation of CHF with known diastolic dysfunction, his CTA chest was negative for evidence of pulmonary embolism. It did show moderate pulmonary interstitial edema and mid and the lower lung colon. Patient continues on nebulized bronchodilators, he remains on Symbicort. Patient has no significant edema in his bilateral lower legs. Dopplers of the lower extremities were limited due to patient's body habitus, but within the limitation of the study there was no sonographic findings of DVT in the lower extremities. Today's labs have been reviewed, his white blood cell, 7.2, hemoglobin is 15.8, sodium is 138, potassium 3.9, chloride is 89, CO2 is 37, BUN 13 creatinine 0.57. Patient tested negative for COVID-19, influenza A and B and RSV. Objective - Vital Signs Vital signs: Vital Signs Temp 98.3 F 12/18/21 08:50 Pulse 76 12/18/21 11:55 Resp 16 12/18/21 11:50 BP 116/56 12/18/21 11:50 Pulse Ox 95 12/18/21 11:50 Intake & Output 12/17/21 12/18/21 12/18/21 18:59 06:59 18:59 Intake Total 1120 240 Output Total 625 1300 Balance 1120 -769 -1060 Weight 117.5 kg Intake: Oral 1120 240 Output: Urine 625 1300 Other: Voiding Method Urinal Urinal Urinal - Exam GENERAL EXAM: Alert, very pleasant, 45-year-old male with typical features of Down syndrome on currently sitting up in the recliner, currently on Airvo at 60 L and FiO2 of 92% with a pulse ox of 97% HEAD: Normocephalic/atraumatic. EYES: Normal reaction of pupils, equal size. Conjunctiva pink, sclera white. NOSE: Clear with pink turbinates. THROAT: No erythema or exudates. NECK: No masses, no JVD, no thyroid enlargement, no adenopathy. CHEST: No chest wall deformity. Symmetrical expansion. LUNGS: Equal air entry with diminished breath sounds , no crackles or wheezes CVS: Regular rate and rhythm, normal S1 and S2, no gallops, no murmurs, no rubs ABDOMEN: Soft, nontender. No hepatosplenomegaly, normal bowel sounds, no guarding or rigidity. EXTREMITIES: No clubbing, no lower extremity edema no cyanosis, 2+ pulses and upper and lower extremities. MUSCULOSKELETAL: Muscle strength and tone normal. SPINE: No scoliosis or deformity SKIN: No rashes CENTRAL NERVOUS SYSTEM: Alert and oriented -3. No focal deficits, tone is normal in all 4 extremities. PSYCHIATRIC: Alert and oriented -3. Appropriate affect. Intact judgment and insight. - Labs CBC & Chem 7: 12/17/21 08:30 12/17/21 08:30 Assessment and Plan Plan: Assessment: #1. Acute hypoxic respiratory failure secondary to acute exacerbation of diastolic CHF. COVID-19 PCR, influenza A and B and RSV were negative #2. Recent hospitalization for acute exacerbation of CHF with the possibility of aspiration related pneumonia and acute lung injury/ARDS. #3. Elevated troponin levels, likely related to acute CHF, please refer to cardiology consultation for comment #4. Obstructive sleep apnea intolerant to CPAP #5. Morbid obesity with BMI 43.7 kg/m #6. History of Down syndrome #7. History of hyperlipidemia #8. History of obstructive sleep apnea, intolerant to CPAP #9. Obesity hypoventilation syndrome #10. Elevated d-dimer, without CT evidence of pulmonary embolism or DVT on lower extremity Dopplers Plan: Wean FiO2 to keep O2 sats ranges between 88-90% Continue diuretics per cardiology recommendations Vital signs are stable Breathing fairly comfortable, denies any cough or dyspnea Increase activity as tolerated Continue GI and DVT prophylaxis will continue to follow his clinical course I performed a history & physical examination of the patient and discussed their management with my nurse practitioner, Keyanna Corcoran. I reviewed the nurse practitioner's note and agree with the documented findings and plan of care. Lung sounds are positive for dim breath sounds throughout the lung colon. The findings and the impression was discussed with the patient. I attest to the documentation by the nurse practitioner. Time with Patient: Less than 30
[2021-12-18] MEDS: FAMOTIDINE 20 MG TAB PO SCH (21:02)
[2021-12-19] MEDS: IPRATROPIUM-ALBUTEROL 3 ML NEB INHALATION SCH ×4 (08:07→19:50)
[2021-12-19] MEDS: SYMBICORT 160-4.5 MCG INHALER INHALATION SCH ×2 (08:07→19:50)
--- NOTE | 2021-12-19 08:36 | XR ---
EXAMINATION TYPE: XR chest 1V portable DATE OF EXAM: 12/19/2021 COMPARISON: Chest x-ray 12/17/2021 HISTORY: Shortness of breath TECHNIQUE: Single frontal view of the chest is obtained. FINDINGS: Cardiac mediastinal silhouette is stable, patient is rotated. Lung volumes are low. No bryan dent pneumothorax or pleural effusion. Patchy bilateral airspace disease is present within the lungs. There are overlying leads. Bones are unchanged. There are overlying leads. IMPRESSION: Correlate for pneumonia versus atelectasis or scarring, there is cardiomegaly.
[2021-12-19] MEDS: SPIRONOLACTONE 25 MG TAB PO SCH (09:35)
[2021-12-19] MEDS: FAMOTIDINE 20 MG TAB PO SCH ×2 (09:36→20:50)
[2021-12-19] MEDS: ASPIRIN 81 MG PO SCH (09:36)
[2021-12-19 09:37] LABS: Anisocytosis Moderate; Basophils # (A) 0.1 k/uL (0-0.2); Basophils % (A) 1 %; Eosinophils # (A) 0.2 k/uL (0-0.7); Eosinophils % (A) 2 %; HCT 52.6 % (39.0-53.0); HGB 15.9 gm/dL (13.0-17.5); Hypochromasia Marked; Lymphocytes # (A) 2.4 k/uL (1.0-4.8); Lymphocytes % (A) 31 %; MCHC 30.2 g/dL (31.0-37.0); MCV 99.6 fL (80.0-100.0); Macrocytosis Moderate; Mean Platelet Volume 9.3; Monocytes # (A) 0.5 k/uL (0-1.0); Monocytes % (A) 6 %; Neutrophils # (A) 4.4 k/uL (1.3-7.7); Neutrophils % (A) 56 %; Platelet Count 200 k/uL (150-450); Poikilocytosis Slight; RBC 5.28 m/uL (4.30-5.90); RDW 23.2 % (11.5-15.5); WBC 7.8 k/uL (3.8-10.6)
[2021-12-19] MEDS: HEPARIN SODIUM,PORCINE/PF 5,000 UNIT/0.5 ML SYRINGE SQ SCH ×2 (09:37→20:50)
[2021-12-19] MEDS: FUROSEMIDE 40 MG TAB PO SCH (09:37)
[2021-12-19] MEDS: ATORVASTATIN 40 MG TAB PO SCH (09:37)
[2021-12-19 10:08] LABS: ALT 252 U/L (4-49); AST 37 U/L (17-59); African American GFR (CKD) >90 (>60 ml/min/1.73 sqM); Albumin 2.9 g/dL (3.5-5.0); Alkaline Phosphatase 93 U/L (38-126); Blood Urea Nitrogen 21 mg/dL (9-20); Calcium 8.3 mg/dL (8.4-10.2); Chloride 90 mmol/L (98-107); Glucose 102 mg/dL (74-99); Non-African American GFR(CKD) >90 (>60 ml/min/1.73 sqM); Potassium 4.5 mmol/L (3.5-5.1); Sodium 136 mmol/L (137-145); Total Bilirubin 0.7 mg/dL (0.2-1.3); Total Protein 6.6 g/dL (6.3-8.2)
[2021-12-19 10:17] LABS: Anion Gap 3 mmol/L
[2021-12-19 10:19] LABS: Carbon Dioxide 43 mmol/L (22-30)
--- NOTE | 2021-12-19 10:58 | P.PN ---
Subjective Progress Note Date: 12/19/21 Principal diagnosis: Shortness of breath, acute hypoxic respiratory failure This is a pleasant 46-year-old male patient with a history of Down syndrome, diastolic congestive heart failure, recurrent aspiration pneumonias, obstructive sleep apnea intolerant to CPAP, hyperlipidemia, gastroesophageal reflux disease. He follows with Dr. Quintanilla as his primary care provider. He was recently here for almost a month for multifactorial issues regarding shortness of breath secondary to diastolic congestive heart failure aspiration pneumonia and hypoventilation syndrome. He was discharged on 11/13/2021. He was brought back to the emergency room yesterday with increasing shortness of breath. X-ray showed progressive patchy perihilar and basilar infiltrates compared to 11/11/19. CT angiogram revealed no evidence of pulmonary embolism. There is moderate pulmonary interstitial edema in the mid and lower lung colon. Previous echocardiogram revealed preserved left ventricular systolic function with ejection fraction 50-55%. Lower extremities negative for DVTs. White count 11.7. Hemoglobin 14.8. INR 1.2. D-dimer 3.44. Sodium 134. Potassium 3.9. Chloride 87. Bicarb 42. BUN 18. Creatinine 0.61. Glucose 143. Troponins 0.40, 0.28, 0.25. ProBNP 3290. Urinalysis clean. Chavira virus by PCR not detected. Pro-calcitonin pending. He's been initiated on DuoNeb inhalations, Symbicort. Lasix 40 mg by mouth every 8 hours. Aldactone. Progress note dated 12/17/2021. 46-year-old male with history of down syndrome, diastolic CHF, recurrent aspiration pneumonia, sleep apnea, hyperlipidemia, and GERD. His primary care physician is Dr. Quintanilla. He was recently here for almost a month for shortness of breath, secondary to CHF. At that time, he was also thought to have aspiration pneumonia. He was finally discharged on 11/13/2021. He was brought back to the emergency room, 2 days ago, with increasing shortness of breath, and diffuse bilateral infiltrates. There was no pulmonary embolism on CT angiogram. Currently, the patient is on AIRVO, at 60 L/m with an FiO2 of 90%. He's not receiving any IV fluids. His nurse held his nitroglycerin this morning, because his blood pressure was a bit soft. Labs today include a white count of 7.2, hemoglobin 15.8, hematocrit 51.7, and a platelet count of 188,000. Sodium was 138, potassium 3.9, chloride 99, CO2 37, anion gap 12, BUN 13, creatinine 0.57. AST was 164 and ALT was 591. Troponins were 0.282 and 0.255. Urine was negative. Chest x-ray was consistent with cardiomegaly, and pulmonary vascular congestion/CHF. On 12/18/2021 patient seen in follow-up on selective care unit, he is currently on Airvo at 60 L and FiO2 of 92% and his pulse ox is greater than 97% and this can probably be weaned further down, he is awake and alert, oriented 3, breathing comfortably he is resting in bed watching TV. He is pleasant and cooperative. he remains on oral Lasix at 40 mg every 12 hours, he is m aintaining negative fluid balance of -625 mL over the last 24 hours. Chest x- ray findings were consistent with acute exacerbation of CHF with known diastolic dysfunction, his CTA chest was negative for evidence of pulmonary embolism. It did show moderate pulmonary interstitial edema and mid and the lower lung colon. Patient continues on nebulized bronchodilators, he remains on Symbicort. Patient has no significant edema in his bilateral lower legs. Dopplers of the lower extremities were limited due to patient's body habitus, but within the limitation of the study there was no sonographic findings of DVT in the lower extremities. Today's labs have been reviewed, his white blood cell, 7.2, hemoglobin is 15.8, sodium is 138, potassium 3.9, chloride is 89, CO2 is 37, BUN 13 creatinine 0.57. Patient tested negative for COVID-19, influenza A and B and RSV. On 12/19/2021 patient seen in follow-up on selective care unit, he remains on high flow oxygen, per Airvo with 55 L and FiO2 of 85% and his pulse ox is 88- 94%. Patient is sleepy this morning however she arouses to voice, he answers simple questions, he feels very fatigued. Nursing reports that the patient does not sleep well at night and she was up until 4:00 in the morning area. Has been extensively diuresed, his IV Lasix has been switched to oral Lasix 40 mg twice daily however he appears to be dehydrated on clinical exam. His oral intake is fair, his appetite is good other than this morning she only consumed 25% of his meal because of being tired. Lung sounds are positive for bibasilar crackles, no rhonchi or wheezes, no significant edema involving his bilateral lower extremities, today's chest x-ray has been reviewed showing lung volumes, patchy bibasilar atelectasis or scarring, cardiomegaly. Today's labs have been reviewed showing white blood cell count is 7.8, hemoglobin of 15.9, sodium is 136, potassium is 4.5, chloride is 90, CO2 is 43, B1 is 21, creatinine 0.7, his LFTs are improved, AST is now within normal limits at 37, ALT is 252, and alkaline phosphatase is 93, his pro-calcitonin level came back negative at 0.12. Patient was tested negative for COVID-19 2, tested negative for influenza A and B, and RSV. Objective - Vital Signs Vital signs: Vital Signs Temp 98.7 F 12/19/21 08:00 Pulse 78 12/19/21 08:17 Resp 20 12/19/21 08:17 BP 103/62 12/19/21 08:00 Pulse Ox 94 L 12/19/21 08:00 Intake & Output 12/18/21 12/19/21 12/19/21 18:59 06:59 18:59 Intake Total 960 1300 240 Output Total 1625 1100 Balance -665 200 240 Weight 117 kg Intake: Oral 960 1300 240 Output: Urine 1625 1100 Other: Voiding Method Urinal Urinal Urinal # Voids 1 - Exam GENERAL EXAM: sleepy but arousable to voice very pleasant, 45-year-old male with typical features of Down syndrome on currently sitting up in the recliner, currently on Airvo at 55 L and FiO2 of 85% with a pulse ox of 97% HEAD: Normocephalic/atraumatic. EYES: Normal reaction of pupils, equal size. Conjunctiva pink, sclera white. NOSE: Clear with pink turbinates. THROAT: No erythema or exudates. NECK: No masses, no JVD, no thyroid enlargement, no adenopathy. CHEST: No chest wall deformity. Symmetrical expansion. LUNGS: Equal air entry with diminished breath sounds , no crackles or wheezes CVS: Regular rate and rhythm, normal S1 and S2, no gallops, no murmurs, no rubs ABDOMEN: Soft, nontender. No hepatosplenomegaly, normal bowel sounds, no guarding or rigidity. EXTREMITIES: No clubbing, no lower extremity edema no cyanosis, 2+ pulses and upper and lower extremities. MUSCULOSKELETAL: Muscle strength and tone normal. SPINE: No scoliosis or deformity SKIN: No rashes CENTRAL NERVOUS SYSTEM: Lethargic but arousable. No focal deficits, tone is normal in all 4 extremities. - Labs CBC & Chem 7: 12/19/21 09:10 12/19/21 09:10 Labs: Abnormal Lab Results - Last 24 Hours (Table) 12/19/21 12/19/21 Range/Units 09:10 09:10 MCHC 30.2 L (31.0-37.0) g/dL RDW 23.2 H (11.5-15.5) % Sodium 136 L (137-145) mmol/L Chloride 90 L (98-107) mmol/L Carbon Dioxide 43 H* (22-30) mmol/L BUN 21 H (9-20) mg/dL Glucose 102 H (74-99) mg/dL Calcium 8.3 L (8.4-10.2) mg/dL ALT 252 H (4-49) U/L Albumin 2.9 L (3.5-5.0) g/dL Assessment and Plan Plan: Assessment: #1. Acute hypoxic respiratory failure secondary to acute exacerbation of diastolic CHF. COVID-19 PCR, influenza A and B and RSV were negative #2. Recent hospitalization for acute exacerbation of CHF with the possibility of aspiration related pneumonia and acute lung injury/ARDS. #3. Elevated troponin levels, likely related to acute CHF, please refer to cardiology consultation for comment #4. Obstructive sleep apnea intolerant to CPAP #5. Morbid obesity with BMI 43.7 kg/m #6. History of Down syndrome #7. History of hyperlipidemia #8. History of obstructive sleep apnea, intolerant to CPAP #9. Obesity hypoventilation syndrome #10. Elevated d-dimer, without CT evidence of pulmonary embolism or DVT on lower extremity Dopplers Plan: Continue attempting to wean Fio2 to keep O2 sats ranges between 88-90% Patient has been refusing BiPAP support Diuretics have been transitioned to oral Will give 2 doses of Diamox May have to hold afternoon dose of lasix Patient is developing volume cotraction alkalosis Follow up labs in am, electrolytes and renal profile Continue GI and DVT prophylaxis will continue to follow his clinical course I performed a history & physical examination of the patient and discussed their management with my nurse practitioner, Keyanna Corcoran. I reviewed the nurse practitioner's note and agree with the documented findings and plan of care. Lung sounds are positive for dim breath sounds throughout the lung colon. The findings and the impression was discussed with the patient. I attest to the documentation by the nurse practitioner. Time with Patient: Less than 30
[2021-12-19 11:08] LABS: ABG Base Excess 20.1 mmol/L; ABG Oxygen Saturation 94.7 % (94-97); ABG PH 7.38 (7.35-7.45); ABG PO2 74 mmHg (83-108); ABG TCO2 48 mmol/L (19-24); Allen Test Performed? Yes
[2021-12-19 11:17] LABS: ABG HCO3 45 mmol/L (21-25); ABG PCO2 77 mmHg (35-45)
--- NOTE | 2021-12-19 11:46 | P.PN ---
Subjective This is a pleasant 46 years old male with past medical history of Asthma, GERD/Reflux, Hyperlipidemia, Memory Impairment, Down syndrome/IQ of about 74, chronic feet issue d/t gout, SHARRI but pt unable to tolerate CPAP Patient is poor historian, sitting in bed eating his breakfast with no difficulty on high flow nasal cannula, he can tell me he is in the hospital but he could not recognize which hospital, the date or the name of the president. When I ask her most recently came to the hospital he points to his right forearm block stating it is because of this. However patient states that his breathing is better now and he denies chest pain or abdominal pain or any other complaints He denies smoking, alcohol or illicit drugs. Patient is hypoxic on the presentation, with oxygen saturating 88% on 4 L and 82% on 50 L, currently on high flow nasal cannula 55%. Afebrile, tachypneic. Has leukocytosis of 11.7, rest of CBC is unremarkable. INR is 1.2 D-dimer is 3.4. BMP is unremarkable, liver enzymes significantly elevated with AST 642 and ALT 1133. Troponin is elevated at 0.4 and 0.2. Urine analysis is not suspicious of infection. Coronal versus nondetected. EKG: Normal sinus rhythm at [address]-T abnormality. Patient was started on aspirin 325 mg, IV Lasix and then oral Lasix 40 mg every 8 hours, bronchodilator. With cardiology team consulted Echocardiogram done on 09/2021 showing preserved ejection fraction of 50-55%. 12/17/2021 Can awake but sleepy, he follows commands. He still slightly tachypneic. He remains on high flow oxygen via nasal cannula at 60 L/m. Chest x-ray showed slight increase in the mid and lower lung zones Pro-calcitonin only mildly elevated 0.12, proBNP is normal which goes against CHF at 323 We are going to recheck cold, influenza and RSV 12/18/2021 Patient is awaken although is sleeping a lot. He looks pleasant and answer questions however he looks confused for example when asking is this year house he said yes. History of on airvo Quiring 60 L/M with 90% oxygen. He is has proximal area with unknown reason. This Procalcitonin and proBNP are both low level. CTA is negative for PE. There is no evidence of wheezing. His CTA showing bilateral infiltrates and obesity may contribute to factor. Pulmonary and cardiology team on the case Currently he is on oral Lasix 40 mg twice a day, aspirin 325 mg and subcu heparin Viral test for Covid, influenza and RSV came back negative 12/19/2021 Sleepy and drowsy most of the time, he is tachypneic, he still requiring oxygen supplementation at 55 L with saturation of 88%. ABG today showing compensated hypercapnia with pH normal at 7.3 and pCO2 elevated 77. PO2 is 74. ABG bicarb is 45 which is elevated. Also BMP is showing evidence of contraction alkalosis with elevated carbon dioxide 43 and elevated BUN/creatinine ratio 21/0.77. Lasix dose will be held today. Pulmonary and cardiology team on the case. Chest x-ray today showing pneumonia versus fibrotic changes/scar We will repeat pro-calcitonin, patient currently is not on antibiotic, he is on by mouth Lasix 40 mg daily and a stent of twice a day Objective - Vital Signs Vital signs: Vital Signs Temp 98.7 F 12/19/21 08:00 Pulse 78 12/19/21 08:17 Resp 20 12/19/21 08:17 BP 103/62 12/19/21 08:00 Pulse Ox 94 L 12/19/21 08:00 Intake & Output 12/18/21 12/19/21 12/19/21 18:59 06:59 18:59 Intake Total 960 1300 240 Output Total 1625 1100 Balance -665 200 240 Weight 117 kg Intake: Oral 960 1300 240 Output: Urine 1625 1100 Other: Voiding Method Urinal Urinal Urinal # Voids 1 - Exam -GENERAL: The patient is alert and oriented x3, drowsy, not in any acute distress. Obese, generally tired HEENT: Pupils are round and equally reacting to light. EOMI. No scleral icterus. No conjunctival pallor. Normocephalic, atraumatic. No pharyngeal erythema. No thyromegaly. CARDIOVASCULAR: S1 and S2 present. No murmurs, rubs, or gallops. -PULMONARY: Chest is clear to auscultation, no wheezing or crackles. Mildly tachypneic ABDOMEN: Soft, nontender, nondistended, normoactive bowel sounds. No palpable organomegaly. MUSCULOSKELETAL: No joint swelling or deformity. EXTREMITIES: No cyanosis, clubbing, or pedal edema. NEUROLOGICAL: Gross neurological examination did not reveal any focal deficits. SKIN: No rashes. no petechiae. - Labs CBC & Chem 7: 12/19/21 09:10 12/19/21 09:10 Labs: Abnormal Lab Results - Last 24 Hours (Table) 12/19/21 12/19/21 Range/Units 09:10 09:10 MCHC 30.2 L (31.0-37.0) g/dL RDW 23.2 H (11.5-15.5) % Sodium 136 L (137-145) mmol/L Chloride 90 L (98-107) mmol/L Carbon Dioxide 43 H* (22-30) mmol/L BUN 21 H (9-20) mg/dL Glucose 102 H (74-99) mg/dL Calcium 8.3 L (8.4-10.2) mg/dL ALT 252 H (4-49) U/L Albumin 2.9 L (3.5-5.0) g/dL Assessment and Plan Assessment: Hypoxia, acute. Of unknown etiology. Elevated troponin , informatica developer on the case elevated d-dimer with no evidence of PE or DVT Elevated liver enzymes , improving CTA of the chest showing no pulmonary embolism, moderate pulmonary interstitial edema in the mid and lower lung colon Memory problem most likely related to yearly Alzheimer's dementia, given his history of Down syndrome. Down syndrome History of asthma History of GERD History of memory impairment History of obstructive sleep apnea, not on CPAP, cannot tolerate. History of gout Plan: This is a pleasant 46 years old male with Down syndrome who presents with acute CHF Continue with Lasix by mouth 40 mg but at once daily Continue with aspirin cardiology team consult Pulmonary team consult Labs and medication were reviewed.. Continue same treatment. Continue with symptomatic treatment. Resume home medication. Monitor lytes and vitals. DVT and GI prophylaxis. Further recommendationsas per clinical course of the patient DVT prophylaxis: Subcutaneous heparin GI Prophylaxis: Pepcid PT/OT: Pending Prognosis is guarded
--- NOTE | 2021-12-19 12:00 | P.PN ---
Subjective Progress Note Date: 12/19/21 HISTORY OF PRESENT ILLNESS: This is a 46-year-old male with history of Down syndrome, recent hospitalization in October of this year at which time he was treated for acute hypoxic r espiratory failure related to pneumonia and acute diastolic heart failure. Echocardiogram had revealed EF of 50-55%, technically difficult study. The patient is a poor historian and unable to obtain history. Patient presented to the emergency center due to increasing shortness of breath and drop in pulse ox to 82% with oxygen. CO2 was 39, WBC 11.7, hemoglobin 14.8. BUN 29 creatinine 0.78. Liver function tests were quite elevated with AST of 642, ALT 1133 and alkaline phosphatase 148. Lactic acid 1.2. ProBNP 3290. Troponin 0.408, 0.282, 0.255. D-dimer 3.44. Chronic virus PCR not detected. EKG was a sinus rhythm. CT angiogram of the chest showed no evidence of pulmonary embolism. Moderate pulmonary interstitial edema in the mid and lower lung colon. Chest x-ray reveals progressive patchy perihilar and basilar infiltrates noted. 12/17: Patient appears to be quite sleepy today. He does open his eyes to verbal stimuli. He is on AirVO with pulse ox is 95%. Heart rate is running in the 60s and 70s, blood pressure 111/61. He is currently on Lasix 40 mg IV every 8 hours and repeat chest x-ray ordered and revealed cardiomegaly with slight interval increase in mid and lower lung airspace disease. Findings could reflect atypical/coven pneumonia versus heart failure. No change in medications today. 12/18/2021 Patient examined this morning at the bedside. Patient denies chest pain or pressure. Denies shortness of breath. He remains on IV lasix. Vital signs are stable. 12/19/2021 Patient examined this morning at the bedside. Patient denies chest pain or press ure. Denies shortness of breath. He remains on Airvo. Vital signs are stable. He was transitioned to oral lasix yesterday. PHYSICAL EXAM: VITAL SIGNS: Reviewed. GENERAL: Well-developed in no acute distress. NECK: Supple. No JVD or thyromegaly LUNGS: Respirations even and unlabored. Lungs diminished to auscultation bilaterally. HEART: Regular rate and rhythm. S1 and S2 heard. EXTREMITIES: Normal range of motion. No clubbing or cyanosis. Peripheral pulses intact. No lower extremity edema ASSESSMENT: Acute on chronic hypoxic respiratory failure, on home O2 at 2 L Acute on chronic diastolic heart failure Elevated troponin secondary to heart failure Pneumonia Down syndrome Sleep apnea PLAN: Continue current cardiac medications No further inpatient recommendations from a cardiac standpoint We will sign off. Please reconsult if needed Nurse practitioner note has been reviewed by physician. Signing provider agrees with the documented findings, assessment, and plan of care. Objective - Vital Signs Vital signs: Vital Signs Temp 98.7 F 12/19/21 08:00 Pulse 75 12/19/21 11:46 Resp 20 12/19/21 11:46 BP 103/62 12/19/21 08:00 Pulse Ox 94 L 12/19/21 08:00 Intake & Output 12/18/21 12/19/21 12/19/21 18:59 06:59 18:59 Intake Total 960 1300 240 Output Total 1625 1100 Balance -665 200 240 Weight 117 kg Intake: Oral 960 1300 240 Output: Urine 1625 1100 Other: Voiding Method Urinal Urinal Urinal # Voids 1 - Labs CBC & Chem 7: 12/19/21 09:10 12/19/21 09:10 Labs: Abnormal Lab Results - Last 24 Hours (Table) 12/19/21 12/19/21 12/19/21 Range/Units 09:10 09:10 11:04 MCHC 30.2 L (31.0-37.0) g/dL RDW 23.2 H (11.5-15.5) % ABG pCO2 77 H* (35-45) mmHg ABG pO2 74 L (83-108) mmHg ABG HCO3 45 H* (21-25) mmol/L ABG Total CO2 48 H (19-24) mmol/L Sodium 136 L (137-145) mmol/L Chloride 90 L (98-107) mmol/L Carbon Dioxide 43 H* (22-30) mmol/L BUN 21 H (9-20) mg/dL Glucose 102 H (74-99) mg/dL Calcium 8.3 L (8.4-10.2) mg/dL ALT 252 H (4-49) U/L Albumin 2.9 L (3.5-5.0) g/dL
[2021-12-19] MEDS: acetaZOLAMIDE 250 MG TAB PO SCH ×2 (12:17→20:50)
--- NOTE | 2021-12-19 13:37 | ECHOF ---
Referral Reason:LVF MEASUREMENTS -------- HEIGHT: 0.0 cm WEIGHT: 0.0 kg BP: RVIDd: 3.5 cm (< 3.3) IVSd: 0.9 cm (0.6 - 1.1) LVIDd: 4.5 cm (3.9 - 5.3) LVPWd: 1.2 cm (0.6 - 1.1) IVSs: 1.4 cm LVIDs: 4.0 cm LVPWs: 1.7 cm FINDINGS -------- Sinus rhythm. Morbid Obesity This was a techncally difficult study with suboptimal views, , Lumason utilized for enhancement of im ages. Overall left ventricular systolic function is low-normal with, an EF between 50 - 55 %. The right ventricle is normal in size. The left atrium was not well visualized. The right atrium is normal in size. 5.0mg OF Lumason UTLIZED: 2 OR MORE WALL SEGMENTS NOT VISUALIZED. The aortic valve was not well visualized. The mitral valve was not well visualized. The tricuspid valve was not well visualized. The pulmonic valve was not well visualized. There is no pericardial effusion. CONCLUSIONS -------- 1. Morbid Obesity 2. This was a techncally difficult study with suboptimal views, , Lumason utilized for enhancement of images. 3. Overall left ventricular systolic function is low-normal with, an EF between 50 - 55 %. 4. The right ventricle is normal in size. 5. The left atrium was not well visualized. 6. The right atrium is normal in size. 7. 5.0mg OF Lumason UTLIZED: 2 OR MORE WALL SEGMENTS NOT VISUALIZED. 8. The aortic valve was not well visualized. 9. The mitral valve was not well visualized. 10. The tricuspid valve was not well visualized. 11. The pulmonic valve was not well visualized. 12. There is no pericardial effusion. SALVAGE DIVER: Selena Cedeno RDCS
[2021-12-20] MEDS: SPIRONOLACTONE 25 MG TAB PO SCH (08:03)
[2021-12-20] MEDS: ASPIRIN 81 MG PO SCH (08:03)
[2021-12-20] MEDS: FAMOTIDINE 20 MG TAB PO SCH ×2 (08:04→20:08)
[2021-12-20] MEDS: HEPARIN SODIUM,PORCINE/PF 5,000 UNIT/0.5 ML SYRINGE SQ SCH ×2 (08:04→20:08)
[2021-12-20] MEDS: FUROSEMIDE 40 MG TAB PO SCH (08:04)
[2021-12-20] MEDS: ATORVASTATIN 40 MG TAB PO SCH (08:04)
[2021-12-20 09:21] LABS: ALT 175 U/L (4-49); AST 33 U/L (17-59); African American GFR (CKD) >90 (>60 ml/min/1.73 sqM); Alkaline Phosphatase 104 U/L (38-126); Anion Gap 1 mmol/L; Blood Urea Nitrogen 22 mg/dL (9-20); Calcium 8.5 mg/dL (8.4-10.2); Carbon Dioxide 38 mmol/L (22-30); Chloride 96 mmol/L (98-107); Glucose 146 mg/dL (74-99); Non-African American GFR(CKD) >90 (>60 ml/min/1.73 sqM); Potassium 4.1 mmol/L (3.5-5.1); Sodium 135 mmol/L (137-145); Total Bilirubin 0.6 mg/dL (0.2-1.3); Total Protein 6.8 g/dL (6.3-8.2)
[2021-12-20 09:28] LABS: Anisocytosis Marked; Basophils # (A) 0.1 k/uL (0-0.2); Basophils % (A) 1 %; Eosinophils # (A) 0.1 k/uL (0-0.7); Eosinophils % (A) 2 %; HCT 52.4 % (39.0-53.0); HGB 15.7 gm/dL (13.0-17.5); Hypochromasia Marked; Lymphocytes # (A) 2.5 k/uL (1.0-4.8); Lymphocytes % (A) 33 %; MCH 30.1 pg (25.0-35.0); MCV 100.3 fL (80.0-100.0); Macrocytosis Marked; Mean Platelet Volume 10.2; Monocytes # (A) 0.4 k/uL (0-1.0); Monocytes % (A) 5 %; Neutrophils # (A) 4.2 k/uL (1.3-7.7); Neutrophils % (A) 56 %; Platelet Count 238 k/uL (150-450); Poikilocytosis Slight; RBC 5.23 m/uL (4.30-5.90); RDW 24.3 % (11.5-15.5); WBC 7.6 k/uL (3.8-10.6)
[2021-12-20] MEDS: SYMBICORT 160-4.5 MCG INHALER INHALATION SCH ×2 (09:32→20:48)
[2021-12-20] MEDS: IPRATROPIUM-ALBUTEROL 3 ML NEB INHALATION SCH ×4 (09:32→20:48)
--- NOTE | 2021-12-20 10:46 | P.PN ---
Subjective Progress Note Date: 12/20/21 Principal diagnosis: Shortness of breath, acute hypoxic respiratory failure This is a pleasant 46-year-old male patient with a history of Down syndrome, diastolic congestive heart failure, recurrent aspiration pneumonias, obstructive sleep apnea intolerant to CPAP, hyperlipidemia, gastroesophageal reflux disease. He follows with Dr. Quintanilla as his primary care provider. He was recently here for almost a month for multifactorial issues regarding shortness of breath secondary to diastolic congestive heart failure aspiration pneumonia and hypoventilation syndrome. He was discharged on 11/13/2021. He was brought back to the emergency room yesterday with increasing shortness of breath. X-ray showed progressive patchy perihilar and basilar infiltrates compared to 11/11/19. CT angiogram revealed no evidence of pulmonary embolism. There is moderate pulmonary interstitial edema in the mid and lower lung colon. Previous echocardiogram revealed preserved left ventricular systolic function with ejection fraction 50-55%. Lower extremities negative for DVTs. White count 11.7. Hemoglobin 14.8. INR 1.2. D-dimer 3.44. Sodium 134. Potassium 3.9. Chloride 87. Bicarb 42. BUN 18. Creatinine 0.61. Glucose 143. Troponins 0.40, 0.28, 0.25. ProBNP 3290. Urinalysis clean. Chavira virus by PCR not detected. Pro-calcitonin pending. He's been initiated on DuoNeb inhalations, Symbicort. Lasix 40 mg by mouth every 8 hours. Aldactone. Progress note dated 12/17/2021. 46-year-old male with history of down syndrome, diastolic CHF, recurrent aspiration pneumonia, sleep apnea, hyperlipidemia, and GERD. His primary care physician is Dr. Quintanilla. He was recently here for almost a month for shortness of breath, secondary to CHF. At that time, he was also thought to have aspiration pneumonia. He was finally discharged on 11/13/2021. He was brought back to the emergency room, 2 days ago, with increasing shortness of breath, and diffuse bilateral infiltrates. There was no pulmonary embolism on CT angiogram. Currently, the patient is on AIRVO, at 60 L/m with an FiO2 of 90%. He's not receiving any IV fluids. His nurse held his nitroglycerin this morning, because his blood pressure was a bit soft. Labs today include a white count of 7.2, hemoglobin 15.8, hematocrit 51.7, and a platelet count of 188,000. Sodium was 138, potassium 3.9, chloride 99, CO2 37, anion gap 12, BUN 13, creatinine 0.57. AST was 164 and ALT was 591. Troponins were 0.282 and 0.255. Urine was negative. Chest x-ray was consistent with cardiomegaly, and pulmonary vascular congestion/CHF. On 12/18/2021 patient seen in follow-up on selective care unit, he is currently on Airvo at 60 L and FiO2 of 92% and his pulse ox is greater than 97% and this can probably be weaned further down, he is awake and alert, oriented 3, breathing comfortably he is resting in bed watching TV. He is pleasant and cooperative. he remains on oral Lasix at 40 mg every 12 hours, he is m aintaining negative fluid balance of -625 mL over the last 24 hours. Chest x- ray findings were consistent with acute exacerbation of CHF with known diastolic dysfunction, his CTA chest was negative for evidence of pulmonary embolism. It did show moderate pulmonary interstitial edema and mid and the lower lung colon. Patient continues on nebulized bronchodilators, he remains on Symbicort. Patient has no significant edema in his bilateral lower legs. Dopplers of the lower extremities were limited due to patient's body habitus, but within the limitation of the study there was no sonographic findings of DVT in the lower extremities. Today's labs have been reviewed, his white blood cell, 7.2, hemoglobin is 15.8, sodium is 138, potassium 3.9, chloride is 89, CO2 is 37, BUN 13 creatinine 0.57. Patient tested negative for COVID-19, influenza A and B and RSV. On 12/19/2021 patient seen in follow-up on selective care unit, he remains on high flow oxygen, per Airvo with 55 L and FiO2 of 85% and his pulse ox is 88- 94%. Patient is sleepy this morning however she arouses to voice, he answers simple questions, he feels very fatigued. Nursing reports that the patient does not sleep well at night and she was up until 4:00 in the morning area. Has been extensively diuresed, his IV Lasix has been switched to oral Lasix 40 mg twice daily however he appears to be dehydrated on clinical exam. His oral intake is fair, his appetite is good other than this morning she only consumed 25% of his meal because of being tired. Lung sounds are positive for bibasilar crackles, no rhonchi or wheezes, no significant edema involving his bilateral lower extremities, today's chest x-ray has been reviewed showing lung volumes, patchy bibasilar atelectasis or scarring, cardiomegaly. Today's labs have been reviewed showing white blood cell count is 7.8, hemoglobin of 15.9, sodium is 136, potassium is 4.5, chloride is 90, CO2 is 43, B1 is 21, creatinine 0.7, his LFTs are improved, AST is now within normal limits at 37, ALT is 252, and alkaline phosphatase is 93, his pro-calcitonin level came back negative at 0.12. Patient was tested negative for COVID-19 2, tested negative for influenza A and B, and RSV. On 12/20/2021 patient seen in follow-up on selective care unit, he is awake and alert, in no acute distress, he continues on Airvo at 55 L and FiO2 of 85% is pulse ox is around 96%, breathing comfortably, lung sounds are diminished, clear no crackles, no rhonchi he continues on oral Lasix 40 mg once daily and he is in -1.5 L net fluid balance over the last 24 hours, he continues on Aldactone 12.5 mg daily, and yesterday we gave the patient 2 doses of oral Diamox 250 mg twice daily. Today's labs including electrolytes and renal profile are still pending, vital signs have been stable overnight, no fever or chills, occasional cough, no phlegm production. No complaints of chest discomfort. His yesterday's chest x- ray showed low lung volumes, no pneumothorax or pleural effusion. Patchy bilateral airspace disease. Objective - Vital Signs Vital signs: Vital Signs Temp 99.0 F 12/20/21 07:58 Pulse 75 12/20/21 08:00 Resp 18 12/20/21 08:00 BP 101/58 12/20/21 07:58 Pulse Ox 96 12/20/21 07:58 Intake & Output 12/19/21 12/20/21 12/20/21 18:59 06:59 18:59 Intake Total 720 180 Output Total 1500 1500 Balance -780 -1500 180 Weight 117 kg Intake: Oral 720 180 Output: Urine 1500 1500 Other: Voiding Method Urinal Urinal Urinal # Voids 1 # Bowel Movements 0 - Exam GENERAL EXAM: Awake and alert, 45-year-old male with typical features of Down syndrome on currently sitting up in the recliner, currently on Airvo at 55 L and FiO2 of 85% with a pulse ox of 97% HEAD: Normocephalic/atraumatic. EYES: Normal reaction of pupils, equal size. Conjunctiva pink, sclera white. NOSE: Clear with pink turbinates. THROAT: No erythema or exudates. NECK: No masses, no JVD, no thyroid enlargement, no adenopathy. CHEST: No chest wall deformity. Symmetrical expansion. LUNGS: Equal air entry with diminished breath sounds , no crackles or wheezes CVS: Regular rate and rhythm, normal S1 and S2, no gallops, no murmurs, no rubs ABDOMEN: Soft, nontender. No hepatosplenomegaly, normal bowel sounds, no gu arding or rigidity. EXTREMITIES: No clubbing, no lower extremity edema no cyanosis, 2+ pulses and up per and lower extremities. MUSCULOSKELETAL: Muscle strength and tone normal. SPINE: No scoliosis or deformity SKIN: No rashes CENTRAL NERVOUS SYSTEM: Lethargic but arousable. No focal deficits, tone is normal in all 4 extremities. - Labs CBC & Chem 7: 12/20/21 08:19 12/20/21 08:19 Labs: Abnormal Lab Results - Last 24 Hours (Table) 12/19/21 12/20/21 12/20/21 Range/Units 11:04 08:19 08:19 MCV 100.3 H (80.0-100.0) fL MCHC 30.0 L (31.0-37.0) g/dL RDW 24.3 H (11.5-15.5) % Macrocytosis Marked A ABG pCO2 77 H* (35-45) mmHg ABG pO2 74 L (83-108) mmHg ABG HCO3 45 H* (21-25) mmol/L ABG Total CO2 48 H (19-24) mmol/L Sodium 135 L (137-145) mmol/L Chloride 96 L (98-107) mmol/L Carbon Dioxide 38 H (22-30) mmol/L BUN 22 H (9-20) mg/dL Glucose 146 H (74-99) mg/dL ALT 175 H (4-49) U/L Albumin 3.0 L (3.5-5.0) g/dL Assessment and Plan Plan: Assessment: #1. Acute hypoxic respiratory failure secondary to acute exacerbation of diastolic CHF. COVID-19 PCR, influenza A and B and RSV were negative #2. Recent hospitalization for acute exacerbation of CHF with the possibility of aspiration related pneumonia and acute lung injury/ARDS. #3. Elevated troponin levels, likely related to acute CHF, please refer to cardiology consultation for comment #4. Obstructive sleep apnea intolerant to CPAP #5. Morbid obesity with BMI 43.7 kg/m #6. History of Down syndrome #7. History of hyperlipidemia #8. History of obstructive sleep apnea, intolerant to CPAP #9. Obesity hypoventilation syndrome #10. Elevated d-dimer, without CT evidence of pulmonary embolism or DVT on lower extremity Dopplers Plan: Patient is breathing comfortably remains on high flow oxygen We will wean FiO2 and drop it to 45% Patient has been refusing BiPAP support Continue with oral diuretics with Lasix 40 mg once daily and Aldactone Today's labs have been reviewed Encouraged the patient to sit up in the chair Deep breathe and cough GI and DVT prophylaxis We'll continue to follow Follow up labs in am, electrolytes and renal profile I performed a history & physical examination of the patient and discussed their management with my nurse practitioner, Keyanna Corcoran. I reviewed the nurse practitioner's note and agree with the documented findings and plan of care. Lung sounds are positive for dim breath sounds throughout the lung colon. The findings and the impression was discussed with the patient. I attest to the documentation by the nurse practitioner. Time with Patient: Less than 30
--- NOTE | 2021-12-21 08:26 | XR ---
EXAMINATION TYPE: XR chest 1V portable DATE OF EXAM: 12/21/2021 COMPARISON: Chest x-ray 12/19/2021 HISTORY: Shortness of breath TECHNIQUE: Single frontal view of the chest is obtained. FINDINGS: Patchy basilar densities are again noted. There is no evident pneumothorax or pleural effu page. Cardiac mediastinal silhouette is stable, heart is enlarged IMPRESSION: Correlate for atelectasis versus pneumonia or scarring. Stable cardiomegaly.
[2021-12-21] MEDS: FAMOTIDINE 20 MG TAB PO SCH ×2 (08:37→19:47)
[2021-12-21] MEDS: FUROSEMIDE 40 MG TAB PO SCH (08:37)
[2021-12-21] MEDS: ASPIRIN 81 MG PO SCH (08:37)
[2021-12-21] MEDS: SPIRONOLACTONE 25 MG TAB PO SCH (08:37)
[2021-12-21] MEDS: ATORVASTATIN 40 MG TAB PO SCH (08:37)
[2021-12-21] MEDS: HEPARIN SODIUM,PORCINE/PF 5,000 UNIT/0.5 ML SYRINGE SQ SCH ×2 (08:37→19:47)
[2021-12-21 08:45] LABS: ALT 136 U/L (4-49); AST 31 U/L (17-59); African American GFR (CKD) >90 (>60 ml/min/1.73 sqM); Albumin 3.2 g/dL (3.5-5.0); Alkaline Phosphatase 86 U/L (38-126); Anion Gap 2 mmol/L; Blood Urea Nitrogen 20 mg/dL (9-20); Calcium 8.6 mg/dL (8.4-10.2); Carbon Dioxide 37 mmol/L (22-30); Chloride 98 mmol/L (98-107); Glucose 112 mg/dL (74-99); Non-African American GFR(CKD) >90 (>60 ml/min/1.73 sqM); Potassium 4.3 mmol/L (3.5-5.1); Sodium 137 mmol/L (137-145); Total Bilirubin 0.6 mg/dL (0.2-1.3); Total Protein 7.2 g/dL (6.3-8.2)
[2021-12-21] MEDS: SYMBICORT 160-4.5 MCG INHALER INHALATION SCH ×2 (09:13→21:27)
[2021-12-21] MEDS: IPRATROPIUM-ALBUTEROL 3 ML NEB INHALATION SCH ×4 (09:13→21:27)
--- NOTE | 2021-12-21 11:44 | P.PN ---
Subjective Progress Note Date: 12/21/21 Principal diagnosis: Shortness of breath, acute hypoxic respiratory failure This is a pleasant 46-year-old male patient with a history of Down syndrome, diastolic congestive heart failure, recurrent aspiration pneumonias, obstructive sleep apnea intolerant to CPAP, hyperlipidemia, gastroesophageal reflux disease. He follows with Dr. Quintanilla as his primary care provider. He was recently here for almost a month for multifactorial issues regarding shortness of breath secondary to diastolic congestive heart failure aspiration pneumonia and hypoventilation syndrome. He was discharged on 11/13/2021. He was brought back to the emergency room yesterday with increasing shortness of breath. X-ray showed progressive patchy perihilar and basilar infiltrates compared to 11/11/19. CT angiogram revealed no evidence of pulmonary embolism. There is moderate pulmonary interstitial edema in the mid and lower lung colon. Previous echocardiogram revealed preserved left ventricular systolic function with ejection fraction 50-55%. Lower extremities negative for DVTs. White count 11.7. Hemoglobin 14.8. INR 1.2. D-dimer 3.44. Sodium 134. Potassium 3.9. Chloride 87. Bicarb 42. BUN 18. Creatinine 0.61. Glucose 143. Troponins 0.40, 0.28, 0.25. ProBNP 3290. Urinalysis clean. Chavira virus by PCR not detected. Pro-calcitonin pending. He's been initiated on DuoNeb inhalations, Symbicort. Lasix 40 mg by mouth every 8 hours. Aldactone. Progress note dated 12/17/2021. 46-year-old male with history of down syndrome, diastolic CHF, recurrent aspiration pneumonia, sleep apnea, hyperlipidemia, and GERD. His primary care physician is Dr. Quintanilla. He was recently here for almost a month for shortness of breath, secondary to CHF. At that time, he was also thought to have aspiration pneumonia. He was finally discharged on 11/13/2021. He was brought back to the emergency room, 2 days ago, with increasing shortness of breath, and diffuse bilateral infiltrates. There was no pulmonary embolism on CT angiogram. Currently, the patient is on AIRVO, at 60 L/m with an FiO2 of 90%. He's not receiving any IV fluids. His nurse held his nitroglycerin this morning, because his blood pressure was a bit soft. Labs today include a white count of 7.2, hemoglobin 15.8, hematocrit 51.7, and a platelet count of 188,000. Sodium was 138, potassium 3.9, chloride 99, CO2 37, anion gap 12, BUN 13, creatinine 0.57. AST was 164 and ALT was 591. Troponins were 0.282 and 0.255. Urine was negative. Chest x-ray was consistent with cardiomegaly, and pulmonary vascular congestion/CHF. On 12/18/2021 patient seen in follow-up on selective care unit, he is currently on Airvo at 60 L and FiO2 of 92% and his pulse ox is greater than 97% and this can probably be weaned further down, he is awake and alert, oriented 3, breathing comfortably he is resting in bed watching TV. He is pleasant and cooperative. he remains on oral Lasix at 40 mg every 12 hours, he is m aintaining negative fluid balance of -625 mL over the last 24 hours. Chest x- ray findings were consistent with acute exacerbation of CHF with known diastolic dysfunction, his CTA chest was negative for evidence of pulmonary embolism. It did show moderate pulmonary interstitial edema and mid and the lower lung colon. Patient continues on nebulized bronchodilators, he remains on Symbicort. Patient has no significant edema in his bilateral lower legs. Dopplers of the lower extremities were limited due to patient's body habitus, but within the limitation of the study there was no sonographic findings of DVT in the lower extremities. Today's labs have been reviewed, his white blood cell, 7.2, hemoglobin is 15.8, sodium is 138, potassium 3.9, chloride is 89, CO2 is 37, BUN 13 creatinine 0.57. Patient tested negative for COVID-19, influenza A and B and RSV. On 12/19/2021 patient seen in follow-up on selective care unit, he remains on high flow oxygen, per Airvo with 55 L and FiO2 of 85% and his pulse ox is 88- 94%. Patient is sleepy this morning however she arouses to voice, he answers simple questions, he feels very fatigued. Nursing reports that the patient does not sleep well at night and she was up until 4:00 in the morning area. Has been extensively diuresed, his IV Lasix has been switched to oral Lasix 40 mg twice daily however he appears to be dehydrated on clinical exam. His oral intake is fair, his appetite is good other than this morning she only consumed 25% of his meal because of being tired. Lung sounds are positive for bibasilar crackles, no rhonchi or wheezes, no significant edema involving his bilateral lower extremities, today's chest x-ray has been reviewed showing lung volumes, patchy bibasilar atelectasis or scarring, cardiomegaly. Today's labs have been reviewed showing white blood cell count is 7.8, hemoglobin of 15.9, sodium is 136, potassium is 4.5, chloride is 90, CO2 is 43, B1 is 21, creatinine 0.7, his LFTs are improved, AST is now within normal limits at 37, ALT is 252, and alkaline phosphatase is 93, his pro-calcitonin level came back negative at 0.12. Patient was tested negative for COVID-19 2, tested negative for influenza A and B, and RSV. On 12/20/2021 patient seen in follow-up on selective care unit, he is awake and alert, in no acute distress, he continues on Airvo at 55 L and FiO2 of 85% is pulse ox is around 96%, breathing comfortably, lung sounds are diminished, clear no crackles, no rhonchi he continues on oral Lasix 40 mg once daily and he is in -1.5 L net fluid balance over the last 24 hours, he continues on Aldactone 12.5 mg daily, and yesterday we gave the patient 2 doses of oral Diamox 250 mg twice daily. Today's labs including electrolytes and renal profile are still pending, vital signs have been stable overnight, no fever or chills, occasional cough, no phlegm production. No complaints of chest discomfort. His yesterday's chest x- ray showed low lung volumes, no pneumothorax or pleural effusion. Patchy bilateral airspace disease. On 12/21/2021 patient seen in follow-up on selective care unit, he is awake and alert, in no acute distress, remains on Airvo at 50 L and FiO2 of 80%, and his pulse ox is 92%, he is breathing quite comfortably, he remains on once daily dose of oral Lasix 40 mg, remains on Aldactone, he is in negative 1.3 L net fluid balance over the last 24 hours. Today's chest x-ray showing patchy basilar densities, and stable cardiomegaly. Today's labs have been reviewed, sodium is 137, potassium is 4.3, chloride is 98, CO2 is 37, BUN is 20 creatinine 0.72. Patient denies any worsening dyspnea, cough or chest discomfort. Objective - Vital Signs Vital signs: Vital Signs Temp 99.0 F 12/21/21 08:29 Pulse 80 12/21/21 09:26 Resp 18 12/21/21 08:29 BP 113/57 12/21/21 08:29 Pulse Ox 92 L 12/21/21 08:29 Intake & Output 12/20/21 12/21/21 12/21/21 18:59 06:59 18:59 Intake Total 180 240 Output Total 1150 350 625 Balance -970 -350 -644 Weight 117 kg 115 kg Intake: Oral 180 240 Output: Urine 1150 350 625 Other: Voiding Method Urinal Urinal Urinal # Voids 0 - Exam GENERAL EXAM: Awake and alert, 45-year-old male with typical features of Down syndrome on currently sitting up in the recliner, currently on Airvo at 50 L and FiO2 of 80% with a pulse ox of 92% HEAD: Normocephalic/atraumatic. EYES: Normal reaction of pupils, equal size. Conjunctiva pink, sclera white. NOSE: Clear with pink turbinates. THROAT: No erythema or exudates. NECK: No masses, no JVD, no thyroid enlargement, no adenopathy. CHEST: No chest wall deformity. Symmetrical expansion. LUNGS: Equal air entry with diminished breath sounds , no crackles or wheezes CVS: Regular rate and rhythm, normal S1 and S2, no gallops, no murmurs, no rubs ABDOMEN: Soft, nontender. No hepatosplenomegaly, normal bowel sounds, no guarding or rigidity. EXTREMITIES: No clubbing, no lower extremity edema no cyanosis, 2+ pulses and upper and lower extremities. MUSCULOSKELETAL: Muscle strength and tone normal. SPINE: No scoliosis or deformity SKIN: No rashes CENTRAL NERVOUS SYSTEM: Lethargic but arousable. No focal deficits, tone is normal in all 4 extremities. - Labs CBC & Chem 7: 12/20/21 08:19 12/21/21 07:35 Labs: Abnormal Lab Results - Last 24 Hours (Table) 12/21/21 Range/Units 07:35 Carbon Dioxide 37 H (22-30) mmol/L Glucose 112 H (74-99) mg/dL ALT 136 H (4-49) U/L Albumin 3.2 L (3.5-5.0) g/dL Assessment and Plan Plan: Assessment: #1. Acute hypoxic respiratory failure secondary to acute exacerbation of diastolic CHF. COVID-19 PCR, influenza A and B and RSV were negative #2. Recent hospitalization for acute exacerbation of CHF with the possibility of aspiration related pneumonia and acute lung injury/ARDS. #3. Elevated troponin levels, likely related to acute CHF, please refer to cardiology consultation for comment #4. Obstructive sleep apnea intolerant to CPAP #5. Morbid obesity with BMI 43.7 kg/m #6. History of Down syndrome #7. History of hyperlipidemia #8. History of obstructive sleep apnea, intolerant to CPAP #9. Obesity hypoventilation syndrome #10. Elevated d-dimer, without CT evidence of pulmonary embolism or DVT on lower extremity Dopplers Plan: Patient has had no acute events overnight Patient continues on Airvo, currently at 50 L and FiO2 of 80% Breathing comfortably He has had no acute events overnight Wean FiO2 to keep O2 sats between 88-90% Continue same dose Lasix, continue Aldactone, start Diamox 250 mg daily Continue GI and DVT prophylaxis We'll continue to follow I performed a history & physical examination of the patient and discussed their management with my nurse practitioner, Keyanna Corcoran. I reviewed the nurse practitioner's note and agree with the documented findings and plan of care. Lung sounds are positive for dim breath sounds throughout the lung colon. The findings and the impression was discussed with the patient. I attest to the documentation by the nurse practitioner. I have personally seen and examined the patient, performed the documentation and the assessment and plan as written. Number of minutes spent on the visit: [10] Time with Patient: Less than 30
--- NOTE | 2021-12-21 11:51 | P.PN ---
Subjective This is a pleasant 46 years old male with past medical history of Asthma, GERD/Reflux, Hyperlipidemia, Memory Impairment, Down syndrome/IQ of about 74, chronic feet issue d/t gout, SHARRI but pt unable to tolerate CPAP Patient is poor historian, sitting in bed eating his breakfast with no difficulty on high flow nasal cannula, he can tell me he is in the hospital but he could not recognize which hospital, the date or the name of the president. When I ask her most recently came to the hospital he points to his right forearm block stating it is because of this. However patient states that his breathing is better now and he denies chest pain or abdominal pain or any other complaints He denies smoking, alcohol or illicit drugs. Patient is hypoxic on the presentation, with oxygen saturating 88% on 4 L and 82% on 50 L, currently on high flow nasal cannula 55%. Afebrile, tachypneic. Has leukocytosis of 11.7, rest of CBC is unremarkable. INR is 1.2 D-dimer is 3.4. BMP is unremarkable, liver enzymes significantly elevated with AST 642 and ALT 1133. Troponin is elevated at 0.4 and 0.2. Urine analysis is not suspicious of infection. Coronal versus nondetected. EKG: Normal sinus rhythm at [address]-T abnormality. Patient was started on aspirin 325 mg, IV Lasix and then oral Lasix 40 mg every 8 hours, bronchodilator. With cardiology team consulted Echocardiogram done on 09/2021 showing preserved ejection fraction of 50-55%. 12/17/2021 Can awake but sleepy, he follows commands. He still slightly tachypneic. He remains on high flow oxygen via nasal cannula at 60 L/m. Chest x-ray showed slight increase in the mid and lower lung zones Pro-calcitonin only mildly elevated 0.12, proBNP is normal which goes against CHF at 323 We are going to recheck cold, influenza and RSV 12/18/2021 Patient is awaken although is sleeping a lot. He looks pleasant and answer questions however he looks confused for example when asking is this year house he said yes. History of on airvo Quiring 60 L/M with 90% oxygen. He is has proximal area with unknown reason. This Procalcitonin and proBNP are both low level. CTA is negative for PE. There is no evidence of wheezing. His CTA showing bilateral infiltrates and obesity may contribute to factor. Pulmonary and cardiology team on the case Currently he is on oral Lasix 40 mg twice a day, aspirin 325 mg and subcu heparin Viral test for Covid, influenza and RSV came back negative 12/19/2021 Sleepy and drowsy most of the time, he is tachypneic, he still requiring oxygen supplementation at 55 L with saturation of 88%. ABG today showing compensated hypercapnia with pH normal at 7.3 and pCO2 elevated 77. PO2 is 74. ABG bicarb is 45 which is elevated. Also BMP is showing evidence of contraction alkalosis with elevated carbon dioxide 43 and elevated BUN/creatinine ratio 21/0.77. Lasix dose will be held today. Pulmonary and cardiology team on the case. Chest x-ray today showing pneumonia versus fibrotic changes/scar We will repeat pro-calcitonin, patient currently is not on antibiotic, he is on by mouth Lasix 40 mg daily and a stent of twice a day 12/20/2021 patient remains on oxygen, history of on airvo at 55 L/m with 88% His pro-calcitonin is 0.12, we going to repeat , His ABG showed normal pH 7.3, high pCO2 77 and low PaO2 74. He remains on diuretic, pulmonary cartilage team on the case 12/21/2021 Patient is more awake today he is alert still confused he follow commands with simple instructions only. It looks like he has some elements of dementia and memory impairment. Remains on airvo with 50 L and FiO2 of 83% His pro-calcitonin with repeated is normal 0.08. Chest x-ray showing atelectasis versus pneumonia Remains on Acetazolamide, oral Lasix once daily at 40 mg. And aspirin 325 mg Objective - Vital Signs Vital signs: Vital Signs Temp 99.0 F 12/21/21 08:29 Pulse 80 12/21/21 09:26 Resp 18 12/21/21 08:29 BP 113/57 12/21/21 08:29 Pulse Ox 92 L 12/21/21 08:29 Intake & Output 12/20/21 12/21/21 12/21/21 18:59 06:59 18:59 Intake Total 180 240 Output Total 1150 350 625 Balance -970 -350 -634 Weight 117 kg 115 kg Intake: Oral 180 240 Output: Urine 1150 350 625 Other: Voiding Method Urinal Urinal Urinal # Voids 0 - Exam -GENERAL: The patient is alert and oriented x3, drowsy, not in any acute distress. Obese, generally tired HEENT: Pupils are round and equally reacting to light. EOMI. No scleral icterus. No conjunctival pallor. Normocephalic, atraumatic. No pharyngeal erythema. No thyromegaly. CARDIOVASCULAR: S1 and S2 present. No murmurs, rubs, or gallops. -PULMONARY: Chest is clear to auscultation, no wheezing or crackles. Mildly tachypneic ABDOMEN: Soft, nontender, nondistended, normoactive bowel sounds. No palpable organomegaly. MUSCULOSKELETAL: No joint swelling or deformity. EXTREMITIES: No cyanosis, clubbing, or pedal edema. NEUROLOGICAL: Gross neurological examination did not reveal any focal deficits. SKIN: No rashes. no petechiae. - Labs CBC & Chem 7: 12/20/21 08:19 12/21/21 07:35 Labs: Abnormal Lab Results - Last 24 Hours (Table) 12/21/21 Range/Units 07:35 Carbon Dioxide 37 H (22-30) mmol/L Glucose 112 H (74-99) mg/dL ALT 136 H (4-49) U/L Albumin 3.2 L (3.5-5.0) g/dL Assessment and Plan Assessment: Hypoxia, acute. Of unknown etiology. Elevated troponin , record producer on the case elevated d-dimer with no evidence of PE or DVT Elevated liver enzymes , improving CTA of the chest showing no pulmonary embolism, moderate pulmonary interstitial edema in the mid and lower lung colon Memory problem most likely related to yearly Alzheimer's dementia, given his history of Down syndrome. Down syndrome History of asthma History of GERD History of memory impairment History of obstructive sleep apnea, not on CPAP, cannot tolerate. History of gout Plan: This is a pleasant 46 years old male with Down syndrome who presents with acute CHF Continue with Lasix by mouth 40 mg but at once daily Continue with aspirin cardiology team consult Pulmonary team consult Labs and medication were reviewed.. Continue same treatment. Continue with symptomatic treatment. Resume home medication. Monitor lytes and vitals. DVT and GI prophylaxis. Further recommendationsas per clinical course of the patient DVT prophylaxis: Subcutaneous heparin GI Prophylaxis: Pepcid PT/OT: Pending Prognosis is guarded
[2021-12-21] MEDS: acetaZOLAMIDE 250 MG TAB PO SCH (12:10)
[2021-12-22] MEDS: IPRATROPIUM-ALBUTEROL 3 ML NEB INHALATION SCH ×4 (08:10→20:53)
[2021-12-22] MEDS: SYMBICORT 160-4.5 MCG INHALER INHALATION SCH ×2 (08:10→20:53)
[2021-12-22] MEDS ORDERED: FUROSEMIDE 10 MG/ML 4 ML VIAL IV STA (09:03)
[2021-12-22] MEDS ORDERED: FUROSEMIDE 10 MG/ML 4 ML VIAL ONE (09:03)
[2021-12-22 09:29] LABS: Glucose,Whole Blood 119 mg/dL (75-99)
--- NOTE | 2021-12-22 09:46 | XR ---
EXAMINATION TYPE: XR chest 1V portable DATE OF EXAM: 12/22/2021 COMPARISON: Chest x-ray 12/21/2021 HISTORY: Shortness of breath TECHNIQUE: Single frontal view of the chest is obtained. FINDINGS: Bilateral patchy increased attenuation is present within the lungs. Heart remains enlarged . Lung volumes are low. No evident pneumothorax. Patient is rotated. There are overlying artifacts. IMPRESSION: Correlate for pneumonia versus scarring, atelectasis or edema. Expiratory rotated exam.
[2021-12-22] MEDS: SPIRONOLACTONE 25 MG TAB PO SCH (10:14)
[2021-12-22] MEDS: HEPARIN SODIUM,PORCINE/PF 5,000 UNIT/0.5 ML SYRINGE SQ SCH ×2 (10:15→20:00)
[2021-12-22] MEDS: FUROSEMIDE 40 MG TAB PO SCH (10:15)
[2021-12-22] MEDS: FAMOTIDINE 20 MG TAB PO SCH ×2 (10:15→20:00)
[2021-12-22] MEDS: ATORVASTATIN 40 MG TAB PO SCH (10:15)
[2021-12-22] MEDS: ASPIRIN 81 MG PO SCH (10:15)
--- NOTE | 2021-12-22 11:06 | P.PN ---
<Keyanna Corcoran - Last Filed: 12/22/21 11:06> Subjective Progress Note Date: 12/22/21 Principal diagnosis: Shortness of breath, acute hypoxic respiratory failure This is a pleasant 46-year-old male patient with a history of Down syndrome, diastolic congestive heart failure, recurrent aspiration pneumonias, obstructive sleep apnea intolerant to CPAP, hyperlipidemia, gastroesophageal reflux disease. He follows with Dr. Quintanilla as his primary care provider. He was recently here for almost a month for multifactorial issues regarding shortness of breath secondary to diastolic congestive heart failure aspiration pneumonia and hypoventilation syndrome. He was discharged on 11/13/2021. He was brought back to the emergency room yesterday with increasing shortness of breath. X-ray showed progressive patchy perihilar and basilar infiltrates compared to 11/11/2021. CT angiogram revealed no evidence of pulmonary embolism. There is moderate pulmonary interstitial edema in the mid and lower lung colon. Previous echocardiogram revealed preserved left ventricular systolic function with ejection fraction 50-55%. Lower extremities negative for DVTs. White count 11.7. Hemoglobin 14.8. INR 1.2. D-dimer 3.44. Sodium 134. Potassium 3.9. Chloride 87. Bicarb 42. BUN 18. Creatinine 0.61. Glucose 143. Troponins 0.40, 0.28, 0.25. ProBNP 3290. Urinalysis clean. Chavira virus by PCR not detected. Pro-calcitonin pending. He's been initiated on DuoNeb inhalations, Symbicort. Lasix 40 mg by mouth every 8 hours. Aldactone. Progress note dated 12/17/2021. 46-year-old male with history of down syndrome, diastolic CHF, recurrent aspiration pneumonia, sleep apnea, hyperlipidemia, and GERD. His primary care physician is Dr. Quintanilla. He was recently here for almost a month for shortness of breath, secondary to CHF. At that time, he was also thought to have aspiration pneumonia. He was finally discharged on 11/13/2021. He was brought back to the emergency room, 2 days ago, with increasing shortness of breath, and diffuse bilateral infiltrates. There was no pulmonary embolism on CT angiogram. Currently, the patient is on AIRVO, at 60 L/m with an FiO2 of 90%. He's not receiving any IV fluids. His nurse held his nitroglycerin this morning, because his blood pressure was a bit soft. Labs today include a white count of 7.2, hemoglobin 15.8, hematocrit 51.7, and a platelet count of 188,000. Sodium was 138, potassium 3.9, chloride 99, CO2 37, anion gap 12, BUN 13, creatinine 0.57. AST was 164 and ALT was 591. Troponins were 0.282 and 0.255. Urine was ne gative. Chest x-ray was consistent with cardiomegaly, and pulmonary vascular congestion/CHF. On 12/18/2021 patient seen in follow-up on selective care unit, he is currently on Airvo at 60 L and FiO2 of 92% and his pulse ox is greater than 97% and this can probably be weaned further down, he is awake and alert, oriented 3, breathing comfortably he is resting in bed watching TV. He is pleasant and cooperative. he remains on oral Lasix at 40 mg every 12 hours, he is maintaining negative fluid balance of -625 mL over the last 24 hours. Chest x- ray findings were consistent with acute exacerbation of CHF with known diastolic dysfunction, his CTA chest was negative for evidence of pulmonary embolism. It did show moderate pulmonary interstitial edema and mid and the lower lung colon. Patient continues on nebulized bronchodilators, he remains on Symbicort. Patient has no significant edema in his bilateral lower legs. Dopplers of the lower extremities were limited due to patient's body habitus, but within the limitation of the study there was no sonographic findings of DVT in the lower extremities. Today's labs have been reviewed, his white blood cell, 7.2, hemoglobin is 15.8, sodium is 138, potassium 3.9, chloride is 89, CO2 is 37, BUN 13 creatinine 0.57. Patient tested negative for COVID-19, influenza A and B and RSV. On 12/19/2021 patient seen in follow-up on selective care unit, he remains on high flow oxygen, per Airvo with 55 L and FiO2 of 85% and his pulse ox is 88- 94%. Patient is sleepy this morning however she arouses to voice, he answers simple questions, he feels very fatigued. Nursing reports that the patient does not sleep well at night and she was up until 4:00 in the morning area. Has been extensively diuresed, his IV Lasix has been switched to oral Lasix 40 mg twice daily however he appears to be dehydrated on clinical exam. His oral intake is fair, his appetite is good other than this morning she only consumed 25% of his meal because of being tired. Lung sounds are positive for bibasilar crackles, no rhonchi or wheezes, no significant edema involving his bilateral lower extremities, today's chest x-ray has been reviewed showing lung volumes, patchy bibasilar atelectasis or scarring, cardiomegaly. Today's labs have been reviewed showing white blood cell count is 7.8, hemoglobin of 15.9, sodium is 136, potassium is 4.5, chloride is 90, CO2 is 43, B1 is 21, creatinine 0.7, his LFTs are improved, AST is now within normal limits at 37, ALT is 252, and alkaline phosphatase is 93, his pro-calcitonin level came back negative at 0.12. Patient was tested negative for COVID-19 2, tested negative for influenza A and B, and RSV. On 12/20/2021 patient seen in follow-up on selective care unit, he is awake and alert, in no acute distress, he continues on Airvo at 55 L and FiO2 of 85% is pulse ox is around 96%, breathing comfortably, lung sounds are diminished, clear no crackles, no rhonchi he continues on oral Lasix 40 mg once daily and he is in -1.5 L net fluid balance over the last 24 hours, he continues on Aldactone 12.5 mg daily, and yesterday we gave the patient 2 doses of oral Diamox 250 mg twice daily. Today's labs including electrolytes and renal profile are still pending, vital signs have been stable overnight, no fever or chills, occasional cough, no phlegm production. No complaints of chest discomfort. His yesterday's chest x- ray showed low lung volumes, no pneumothorax or pleural effusion. Patchy bilateral airspace disease. On 12/21/2021 patient seen in follow-up on selective care unit, he is awake and alert, in no acute distress, remains on Airvo at 50 L and FiO2 of 80%, and his pulse ox is 92%, he is breathing quite comfortably, he remains on once daily dose of oral Lasix 40 mg, remains on Aldactone, he is in negative 1.3 L net fluid balance over the last 24 hours. Today's chest x-ray showing patchy basilar densities, and stable cardiomegaly. Today's labs have been reviewed, sodium is 137, potassium is 4.3, chloride is 98, CO2 is 37, BUN is 20 creatinine 0.72. Patient denies any worsening dyspnea, cough or chest discomfort. On 12/22/2021 rapid response team was called in view of worsening hypoxia, patient has been on Airvo at 50 L and FiO2 of 80%, and he was noted to have O2 saturations in the low 80s, and subsequently his Airvo flow was increased to 60 L and FiO2 of 90% and patient was also placed on in the 100% nonrebreather mask and continued to have low O2 saturations at around 83%. Patient is awake, she still refuses to wear the BiPAP, he is crying, but he is responding a ppropriately, does not appear to be in any acute distress. He had been on oral dose Lasix once daily, on Aldactone and once daily dose of Diamox 250 mg. Patient has been maintaining negative fluid balance over the last several days, and the last 24 hours he is in -1044 mL negative net fluid balance, today's chest x-ray showing cardiomegaly, low lung volumes, no evident pneumothorax, tidal patchy attenuation possibly related to atelectasis or interstitial edema. Patient was given an additional dose of IV Lasix 40 mg this morning, Bose catheter has been inserted and patient has put out over a liter in urine output. Subsequently he was transferred to the intensive care unit for closer zack toring, he remains awake and alert, denies any acute distress, mildly congested cough, no phlegm production. He is watching TV, he is comfortable. Denies any chest discomfort. His had no fever or chills overnight, he starting to diurese. He still refuses to wear BiPAP, with deep breathing has pulse ox comes up to 96%. He will be given an incentive spirometer. Today's labs are still pending. Patient has been on GI and DVT prophylaxis with oral Pepcid and heparin 5000 units every 12 hours subcu. His d-dimer was elevated on admission, but CTA chest was completed showing no evidence of pulmonary embolism, lower extremity Dopplers were negative for DVT in the limitation of the study. Objective - Vital Signs Vital signs: Vital Signs Temp 99.3 F 12/22/21 10:00 Pulse 81 12/22/21 10:00 Resp 6 L 12/22/21 10:00 BP 98/59 12/22/21 10:00 Pulse Ox 84 L 12/22/21 10:00 Intake & Output 12/21/21 12/22/21 12/22/21 18:59 06:59 18:59 Intake Total 1320 711 480 Output Total 1575 1500 950 Balance -692 -789 -470 Weight 113.5 kg Intake: Oral 1320 711 480 Output: Urine 1575 1500 950 Other: Voiding Method Urinal Urinal Urinal - Exam GENERAL EXAM: Awake and alert, 45-year-old male with typical features of Down syndrome on currently resting comfortably in bed, currently on Airvo at 60 L and FiO2 of 90%, breathing comfortably with a pulse ox of 89-92% HEAD: Normocephalic/atraumatic. EYES: Normal reaction of pupils, equal size. Conjunctiva pink, sclera white. NOSE: Clear with pink turbinates. THROAT: No erythema or exudates. NECK: No masses, no JVD, no thyroid enlargement, no adenopathy. CHEST: No chest wall deformity. Symmetrical expansion. LUNGS: Equal air entry with diminished breath sounds, bibasilar crackles CVS: Regular rate and rhythm, normal S1 and S2, no gallops, no murmurs, no rubs ABDOMEN: Soft, nontender. No hepatosplenomegaly, normal bowel sounds, no guarding or rigidity. EXTREMITIES: No clubbing, no lower extremity edema no cyanosis, 2+ pulses and upper and lower extremities. MUSCULOSKELETAL: Muscle strength and tone normal. SPINE: No scoliosis or deformity SKIN: No rashes CENTRAL NERVOUS SYSTEM: Awake and alert, No focal deficits, tone is normal in all 4 extremities. - Labs CBC & Chem 7: 12/20/21 08:19 12/21/21 07:35 Labs: Abnormal Lab Results - Last 24 Hours (Table) 12/22/21 Range/Units 09:17 POC Glucose (mg/dL) 119 H (75-99) mg/dL Assessment and Plan Plan: Assessment: #1. Acute hypoxic respiratory failure secondary to acute exacerbation of diastolic CHF. COVID-19 PCR, influenza A and B and RSV were negative. On 12/22/2021 patient was noted to have worsening hypoxia, rapid response team was called, patient is currently on Airvo, 60 L and FiO2 of 90% in addition to nonrebreather mask at 100%. Chest x-ray is consistent with low lung volumes, atelectasis, possibility of interstitial edema. Patient was given additional dose of Lasix and transferred to the intensive care unit. #2. Recent hospitalization for acute exacerbation of CHF with the possibility of aspiration related pneumonia and acute lung injury/ARDS. #3. Elevated troponin levels, likely related to acute CHF, please refer to cardiology consultation for comment #4. Obstructive sleep apnea intolerant to CPAP #5. Morbid obesity with BMI 43.7 kg/m #6. History of Down syndrome #7. History of hyperlipidemia #8. History of obstructive sleep apnea, intolerant to CPAP #9. Obesity hypoventilation syndrome #10. Elevated d-dimer, without CT evidence of pulmonary embolism or DVT on lower extremity Dopplers Plan: Patient was transferred to the ICU Currently on Airvo at 60 l and Fio2 of 90% Refuses to wear Bipap In no acute distress, breathing comfortably, mentation is awake and alert, oriented times three CXR reviewed, consistent with low lung volumes, atelectasis, interstitial edema Lasix was switched to IV Lasix 40 mg IVP BID Switch Diamox to 250 mg IVP BID Continue Aldactone Continue Continue GI and DVT prophylaxis Will review ABG, and lab work hemodynamically stable comfortable Titrate Fio2 to keep O2 sat 86-88% Encourage Deep breathing and coughing Provide incentive spirometer Follow up labs, cxr in am We'll continue to follow closely in the Intensive Care unit I performed a history & physical examination of the patient and discussed their management with my nurse practitioner, Keyanna Corcoran. I reviewed the nurse practitioner's note and agree with the documented findings and plan of care. Lung sounds are positive for dim breath sounds throughout the lung colon. The findings and the impression was discussed with the patient. I attest to the d ocumentation by the nurse practitioner. I have personally seen and examined the patient, performed the documentation and the assessment and plan as written. Number of minutes spent on the visit: [10] Time with Patient: Less than 30 <Christian Melara - Last Filed: 12/22/21 18:55> Objective - Vital Signs Vital signs: Vital Signs Temp 98.9 F 02/25/22 16:00 Pulse 82 12/22/21 16:45 Resp 45 H 12/22/21 16:00 BP 120/48 12/22/21 16:00 Pulse Ox 94 L 12/22/21 16:33 Intake & Output 12/21/21 12/22/21 12/22/21 18:59 06:59 18:59 Intake Total 1320 711 480 Output Total 1575 1500 1620 Balance -482 -520 -1140 Weight 113.5 kg Intake: Oral 1320 711 480 Output: Urine 1575 1500 1620 Other: Voiding Method Urinal Urinal Urinal - Labs CBC & Chem 7: 12/22/21 10:49 12/22/21 10:49 Labs: Abnormal Lab Results - Last 24 Hours (Table) 12/22/21 12/22/21 12/22/21 Range/Units 09:17 10:49 10:49 WBC 11.3 H (3.8-10.6) k/uL Hct 53.8 H (39.0-53.0) % MCV 101.2 H (80.0-100.0) fL MCHC 29.9 L (31.0-37.0) g/dL RDW 23.9 H (11.5-15.5) % Macrocytosis Marked A ABG pH (7.35-7.45) ABG pCO2 (35-45) mmHg ABG pO2 (83-108) mmHg ABG HCO3 (21-25) mmol/L ABG Total CO2 (19-24) mmol/L ABG O2 Saturation (94-97) % Chloride 96 L (98-107) mmol/L Carbon Dioxide 40 H (22-30) mmol/L BUN 22 H (9-20) mg/dL Glucose 121 H (74-99) mg/dL POC Glucose (mg/dL) 119 H (75-99) mg/dL ALT 101 H (4-49) U/L Albumin 3.4 L (3.5-5.0) g/dL 12/22/21 Range/Units 11:16 WBC (3.8-10.6) k/uL Hct (39.0-53.0) % MCV (80.0-100.0) fL MCHC (31.0-37.0) g/dL RDW (11.5-15.5) % Macrocytosis ABG pH 7.33 L (7.35-7.45) ABG pCO2 82 H* (35-45) mmHg ABG pO2 59 L* (83-108) mmHg ABG HCO3 42 H* (21-25) mmol/L ABG Total CO2 45 H (19-24) mmol/L ABG O2 Saturation 89.6 L (94-97) % Chloride (98-107) mmol/L Carbon Dioxide (22-30) mmol/L BUN (9-20) mg/dL Glucose (74-99) mg/dL POC Glucose (mg/dL) (75-99) mg/dL ALT (4-49) U/L Albumin (3.5-5.0) g/dL Assessment and Plan Plan: This evaluation was done in conjunction with nurse practitioner. This evaluation was done more than 20 minutes. The patient continues to be in acute hypoxic respiratory failure requiring high flow oxygen and the patient remains on Airvo. We will initiate diuretics on this patient and the patient was started on Lasix 40 mg IV every 12 hours and the patient be also even Diamox to 250 mg IV push twice a day to counteract metabolic alkalosis. We'll continue Aldactone for now. Monitor vaccination. Wean down the FiO2. Hemodynamically stable. Monitor renal function. We'll continue to follow.
[2021-12-22 11:14] LABS: ALT 101 U/L (4-49); AST 27 U/L (17-59); African American GFR (CKD) >90 (>60 ml/min/1.73 sqM); Albumin 3.4 g/dL (3.5-5.0); Alkaline Phosphatase 104 U/L (38-126); Anion Gap 2 mmol/L; Anisocytosis Moderate; Basophils # (A) 0.1 k/uL (0-0.2); Basophils % (A) 1 %; Blood Urea Nitrogen 22 mg/dL (9-20); Calcium 9.2 mg/dL (8.4-10.2); Chloride 96 mmol/L (98-107); Eosinophils # (A) 0.1 k/uL (0-0.7); Eosinophils % (A) 1 %; Glucose 121 mg/dL (74-99); HCT 53.8 % (39.0-53.0); HGB 16.1 gm/dL (13.0-17.5); Hypochromasia Marked; Lymphocytes # (A) 2.6 k/uL (1.0-4.8); Lymphocytes % (A) 23 %; MCH 30.3 pg (25.0-35.0); MCHC 29.9 g/dL (31.0-37.0); MCV 101.2 fL (80.0-100.0); Macrocytosis Marked; Mean Platelet Volume 9.5; Monocytes # (A) 0.7 k/uL (0-1.0); Monocytes % (A) 6 %; Neutrophils # (A) 7.7 k/uL (1.3-7.7); Neutrophils % (A) 68 %; Non-African American GFR(CKD) >90 (>60 ml/min/1.73 sqM); Platelet Count 236 k/uL (150-450); Poikilocytosis Slight; Potassium 4.5 mmol/L (3.5-5.1); RBC 5.32 m/uL (4.30-5.90); RDW 23.9 % (11.5-15.5); Sodium 138 mmol/L (137-145); Total Bilirubin 0.9 mg/dL (0.2-1.3); Total Protein 7.6 g/dL (6.3-8.2); WBC 11.3 k/uL (3.8-10.6)
[2021-12-22 11:17] LABS: ABG Base Excess 16.4 mmol/L; ABG Oxygen Saturation 89.6 % (94-97); ABG PH 7.33 (7.35-7.45); ABG TCO2 45 mmol/L (19-24)
[2021-12-22 11:20] LABS: ABG HCO3 42 mmol/L (21-25); ABG PCO2 82 mmHg (35-45); ABG PO2 59 mmHg (83-108); Allen Test Performed? yes
[2021-12-22 11:32] LABS: Carbon Dioxide 40 mmol/L (22-30)
--- NOTE | 2021-12-22 14:07 | P.PN ---
Subjective This is a pleasant 46 years old male with past medical history of Asthma, GERD/Reflux, Hyperlipidemia, Memory Impairment, Down syndrome/IQ of about 74, chronic feet issue d/t gout, SHARRI but pt unable to tolerate CPAP Patient is poor historian, sitting in bed eating his breakfast with no difficulty on high flow nasal cannula, he can tell me he is in the hospital but he could not recognize which hospital, the date or the name of the president. When I ask her most recently came to the hospital he points to his right forearm block stating it is because of this. However patient states that his breathing is better now and he denies chest pain or abdominal pain or any other complaints He denies smoking, alcohol or illicit drugs. Patient is hypoxic on the presentation, with oxygen saturating 88% on 4 L and 82% on 50 L, currently on high flow nasal cannula 55%. Afebrile, tachypneic. Has leukocytosis of 11.7, rest of CBC is unremarkable. INR is 1.2 D-dimer is 3.4. BMP is unremarkable, liver enzymes significantly elevated with AST 642 and ALT 1133. Troponin is elevated at 0.4 and 0.2. Urine analysis is not suspicious of infection. Coronal versus nondetected. EKG: Normal sinus rhythm at [address]-T abnormality. Patient was started on aspirin 325 mg, IV Lasix and then oral Lasix 40 mg every 8 hours, bronchodilator. With cardiology team consulted Echocardiogram done on 09/2021 showing preserved ejection fraction of 50-55%. 12/17/2021 Can awake but sleepy, he follows commands. He still slightly tachypneic. He remains on high flow oxygen via nasal cannula at 60 L/m. Chest x-ray showed slight increase in the mid and lower lung zones Pro-calcitonin only mildly elevated 0.12, proBNP is normal which goes against CHF at 323 We are going to recheck cold, influenza and RSV 12/18/2021 Patient is awaken although is sleeping a lot. He looks pleasant and answer questions however he looks confused for example when asking is this year house he said yes. History of on airvo Quiring 60 L/M with 90% oxygen. He is has proximal area with unknown reason. This Procalcitonin and proBNP are both low level. CTA is negative for PE. There is no evidence of wheezing. His CTA showing bilateral infiltrates and obesity may contribute to factor. Pulmonary and cardiology team on the case Currently he is on oral Lasix 40 mg twice a day, aspirin 325 mg and subcu heparin Viral test for Covid, influenza and RSV came back negative 12/19/2021 Sleepy and drowsy most of the time, he is tachypneic, he still requiring oxygen supplementation at 55 L with saturation of 88%. ABG today showing compensated hypercapnia with pH normal at 7.3 and pCO2 elevated 77. PO2 is 74. ABG bicarb is 45 which is elevated. Also BMP is showing evidence of contraction alkalosis with elevated carbon dioxide 43 and elevated BUN/creatinine ratio 21/0.77. Lasix dose will be held today. Pulmonary and cardiology team on the case. Chest x-ray today showing pneumonia versus fibrotic changes/scar We will repeat pro-calcitonin, patient currently is not on antibiotic, he is on by mouth Lasix 40 mg daily and a stent of twice a day 12/20/2021 patient remains on oxygen, history of on airvo at 55 L/m with 88% His pro-calcitonin is 0.12, we going to repeat , His ABG showed normal pH 7.3, high pCO2 77 and low PaO2 74. He remains on diuretic, pulmonary cartilage team on the case 12/21/2021 Patient is more awake today he is alert still confused he follow commands with simple instructions only. It looks like he has some elements of dementia and memory impairment. Remains on airvo with 50 L and FiO2 of 83% His pro-calcitonin with repeated is normal 0.08. Chest x-ray showing atelectasis versus pneumonia Remains on Acetazolamide, oral Lasix once daily at 40 mg. And aspirin 325 mg 12/22/2021 Patient was transferred to the ICU for worsening hypoxia, he is awake and alert, follows simple commands but it looks almost at baseline. He does not talk much. He does not look in respiratory distress. His oxygen requirements increased back to 60 L/m at 90%. he is saturating at 94% His chest x-ray showing pneumonia versus scarring versus atelectasis His pH is 7.3 pCO2 82 and pO2 is 59 which is low. ProBNP is 191 Patient is refusing to wear BiPAP His Lasix to switch from oral and IV. Continued on aspirin 325 mg and acetazolamide. Objective - Vital Signs Vital signs: Vital Signs Temp 98.5 F 12/22/21 12:00 Pulse 84 12/22/21 13:30 Resp 26 H 12/22/21 13:30 BP 116/54 12/22/21 13:30 Pulse Ox 94 L 12/22/21 13:30 Intake & Output 12/21/21 12/22/21 12/22/21 18:59 06:59 18:59 Intake Total 1320 711 480 Output Total 1575 1500 1470 Balance -467 -729 -990 Weight 113.5 kg Intake: Oral 1320 711 480 Output: Urine 1575 1500 1470 Other: Voiding Method Urinal Urinal Urinal - Exam -GENERAL: The patient is alert and oriented x3, drowsy, not in any acute distress. Obese, generally tired HEENT: Pupils are round and equally reacting to light. EOMI. No scleral icterus. No conjunctival pallor. Normocephalic, atraumatic. No pharyngeal erythema. No thyromegaly. CARDIOVASCULAR: S1 and S2 present. No murmurs, rubs, or gallops. -PULMONARY: Chest is clear to auscultation, no wheezing or crackles. Mildly tachypneic ABDOMEN: Soft, nontender, nondistended, normoactive bowel sounds. No palpable organomegaly. MUSCULOSKELETAL: No joint swelling or deformity. EXTREMITIES: No cyanosis, clubbing, or pedal edema. NEUROLOGICAL: Gross neurological examination did not reveal any focal deficits. SKIN: No rashes. no petechiae. - Labs CBC & Chem 7: 12/22/21 10:49 12/22/21 10:49 Labs: Abnormal Lab Results - Last 24 Hours (Table) 12/22/21 12/22/21 12/22/21 Range/Units 09:17 10:49 10:49 WBC 11.3 H (3.8-10.6) k/uL Hct 53.8 H (39.0-53.0) % MCV 101.2 H (80.0-100.0) fL MCHC 29.9 L (31.0-37.0) g/dL RDW 23.9 H (11.5-15.5) % Macrocytosis Marked A ABG pH (7.35-7.45) ABG pCO2 (35-45) mmHg ABG pO2 (83-108) mmHg ABG HCO3 (21-25) mmol/L ABG Total CO2 (19-24) mmol/L ABG O2 Saturation (94-97) % Chloride 96 L (98-107) mmol/L Carbon Dioxide 40 H (22-30) mmol/L BUN 22 H (9-20) mg/dL Glucose 121 H (74-99) mg/dL POC Glucose (mg/dL) 119 H (75-99) mg/dL ALT 101 H (4-49) U/L Albumin 3.4 L (3.5-5.0) g/dL 12/22/21 Range/Units 11:16 WBC (3.8-10.6) k/uL Hct (39.0-53.0) % MCV (80.0-100.0) fL MCHC (31.0-37.0) g/dL RDW (11.5-15.5) % Macrocytosis ABG pH 7.33 L (7.35-7.45) ABG pCO2 82 H* (35-45) mmHg ABG pO2 59 L* (83-108) mmHg ABG HCO3 42 H* (21-25) mmol/L ABG Total CO2 45 H (19-24) mmol/L ABG O2 Saturation 89.6 L (94-97) % Chloride (98-107) mmol/L Carbon Dioxide (22-30) mmol/L BUN (9-20) mg/dL Glucose (74-99) mg/dL POC Glucose (mg/dL) (75-99) mg/dL ALT (4-49) U/L Albumin (3.5-5.0) g/dL Assessment and Plan Assessment: Hypoxia, acute. Of unknown etiology. Elevated troponin , machine captain on the case elevated d-dimer with no evidence of PE or DVT Elevated liver enzymes , improving CTA of the chest showing no pulmonary embolism, moderate pulmonary interstitial edema in the mid and lower lung colon Memory problem most likely related to yearly Alzheimer's dementia, given his history of Down syndrome. Down syndrome History of asthma History of GERD History of memory impairment History of obstructive sleep apnea, not on CPAP, cannot tolerate. History of gout Plan: This is a pleasant 46 years old male with Down syndrome who presents with acute CHF Continue with Lasix 40 mg IV twice a day Continue with aspirin cardiology team consult Pulmonary team consult Labs and medication were reviewed.. Continue same treatment. Continue with symptomatic treatment. Resume home medication. Monitor lytes and vitals. DVT and GI prophylaxis. Further recommendationsas per clinical course of the patient DVT prophylaxis: Subcutaneous heparin GI Prophylaxis: Pepcid PT/OT: Pending Prognosis is guarded
[2021-12-22] MEDS: FUROSEMIDE 10 MG/ML 4 ML VIAL IV SCH (20:00)
[2021-12-23 06:30] LABS: ALT 72 U/L (4-49); AST 24 U/L (17-59); African American GFR (CKD) >90 (>60 ml/min/1.73 sqM); Albumin 3.2 g/dL (3.5-5.0); Alkaline Phosphatase 92 U/L (38-126); Anion Gap 5 mmol/L; Blood Urea Nitrogen 25 mg/dL (9-20); Chloride 91 mmol/L (98-107); Glucose 133 mg/dL (74-99); Non-African American GFR(CKD) >90 (>60 ml/min/1.73 sqM); Sodium 136 mmol/L (137-145); Total Bilirubin 0.9 mg/dL (0.2-1.3); Total Protein 7.3 g/dL (6.3-8.2)
[2021-12-23 06:48] LABS: Carbon Dioxide 40 mmol/L (22-30)
[2021-12-23 06:53] LABS: Anisocytosis Moderate; Basophils # (A) 0.1 k/uL (0-0.2); Basophils % (A) 1 %; Eosinophils # (A) 0.1 k/uL (0-0.7); Eosinophils % (A) 1 %; HCT 52.2 % (39.0-53.0); HGB 15.9 gm/dL (13.0-17.5); Hypochromasia Marked; Lymphocytes # (A) 2.7 k/uL (1.0-4.8); Lymphocytes % (A) 28 %; MCHC 30.4 g/dL (31.0-37.0); Macrocytosis Marked; Mean Platelet Volume 9.1; Monocytes # (A) 0.6 k/uL (0-1.0); Monocytes % (A) 6 %; Neutrophils % (A) 62 %; Platelet Count 206 k/uL (150-450); Poikilocytosis Slight; RBC 5.12 m/uL (4.30-5.90); RDW 23.9 % (11.5-15.5); WBC 9.7 k/uL (3.8-10.6)
--- NOTE | 2021-12-23 07:25 | XR ---
EXAMINATION TYPE: XR chest 1V portable DATE OF EXAM: 12/23/2021 COMPARISON: Chest x-ray 12/22/2021 HISTORY: Shortness of breath TECHNIQUE: Single frontal view of the chest is obtained. FINDINGS: Bilateral patchy basilar density persists, the hemidiaphragm on the left is obscured. Hear t remains enlarged. There is no evident pneumothorax. There are overlying leads. Perihilar vascular i ndistinctness is noted. IMPRESSION: Correlate for interstitial edema, pneumonia, congestive heart failure not excluded versu s atelectasis or scarring. Cardiomegaly.
[2021-12-23] MEDS: SYMBICORT 160-4.5 MCG INHALER INHALATION SCH ×2 (07:43→20:23)
[2021-12-23] MEDS: IPRATROPIUM-ALBUTEROL 3 ML NEB INHALATION SCH ×4 (07:43→20:22)
[2021-12-23] MEDS: ASPIRIN 81 MG PO SCH (08:07)
[2021-12-23] MEDS: ATORVASTATIN 40 MG TAB PO SCH (08:07)
[2021-12-23] MEDS: HEPARIN SODIUM,PORCINE/PF 5,000 UNIT/0.5 ML SYRINGE SQ SCH ×2 (08:07→20:25)
[2021-12-23] MEDS: FAMOTIDINE 20 MG TAB PO SCH ×2 (08:07→20:25)
[2021-12-23] MEDS: SPIRONOLACTONE 25 MG TAB PO SCH (08:09)
[2021-12-23] MEDS: FUROSEMIDE 10 MG/ML 4 ML VIAL IV SCH ×2 (08:09→20:25)
--- NOTE | 2021-12-23 12:18 | P.PN ---
Subjective Progress Note Date: 12/23/21 This is a pleasant 46-year-old male patient with a history of Down syndrome, diastolic congestive heart failure, recurrent aspiration pneumonias, obstructive sleep apnea intolerant to CPAP, hyperlipidemia, gastroesophageal reflux disease. He follows with Dr. Quintanilla as his primary care provider. He was recently here for almost a month for multifactorial issues regarding shortness of breath secondary to diastolic congestive heart failure aspiration pneumonia and hypoventilation syndrome. He was discharged on 11/13/2021. He was brought back to the emergency room yesterday with increasing shortness of breath. X-ray showed progressive patchy perihilar and basilar infiltrates compared to 11/11/2021. CT angiogram revealed no evidence of pulmonary embolism. There is moderate pulmonary interstitial edema in the mid and lower lung colon. Previous echocardiogram revealed preserved left ventricular systolic function with ejection fraction 50-55%. Lower extremities negative for DVTs. White cou nt 11.7. Hemoglobin 14.8. INR 1.2. D-dimer 3.44. Sodium 134. Potassium 3.9. Chloride 87. Bicarb 42. BUN 18. Creatinine 0.61. Glucose 143. Troponins 0.40, 0.28, 0.25. ProBNP 3290. Urinalysis clean. Chavira virus by PCR not detected. Pro-calcitonin pending. He's been initiated on DuoNeb inhalations, Symbicort. Lasix 40 mg by mouth every 8 hours. Aldactone. Progress note dated 12/17/2021. 46-year-old male with history of down syndrome, diastolic CHF, recurrent aspiration pneumonia, sleep apnea, hyperlipidemia, and GERD. His primary care physician is Dr. Quintanilla. He was recently here for almost a month for shortness of breath, secondary to CHF. At that time, he was also thought to have aspiration pneumonia. He was finally discharged on 11/13/2021. He was brought back to the emergency room, 2 days ago, with increasing shortness of breath, and diffuse bilateral infiltrates. There was no pulmonary embolism on CT angiogram. Currently, the patient is on AIRVO, at 60 L/m with an FiO2 of 90%. He's not receiving any IV fluids. His nurse held his nitroglycerin this morning, because his blood pressure was a bit soft. Labs today include a white count of 7.2, hemoglobin 15.8, hematocrit 51.7, and a platelet count of 188,000. Sodium was 138, potassium 3.9, chloride 99, CO2 37, anion gap 12, BUN 13, creatinine 0.57. AST was 164 and ALT was 591. Troponins were 0.282 and 0.255. Urine was negative. Chest x-ray was consistent with cardiomegaly, and pulmonary vascular congestion/CHF. On 12/18/2021 patient seen in follow-up on selective care unit, he is currently on Airvo at 60 L and FiO2 of 92% and his pulse ox is greater than 97% and this can probably be weaned further down, he is awake and alert, oriented 3, breathing comfortably he is resting in bed watching TV. He is pleasant and cooperative. he remains on oral Lasix at 40 mg every 12 hours, he is sofia ntaining negative fluid balance of -625 mL over the last 24 hours. Chest x-ray findings were consistent with acute exacerbation of CHF with known diastolic dysfunction, his CTA chest was negative for evidence of pulmonary embolism. It did show moderate pulmonary interstitial edema and mid and the lower lung colon. Patient continues on nebulized bronchodilators, he remains on Symbicort. Patient has no significant edema in his bilateral lower legs. Dopplers of the lower extremities were limited due to patient's body habitus, but within the limitation of the study there was no sonographic findings of DVT in the lower extremities. Today's labs have been reviewed, his white blood cell, 7.2, hemoglobin is 15.8, sodium is 138, potassium 3.9, chloride is 89, CO2 is 37, BUN 13 creatinine 0.57. Patient tested negative for COVID-19, influenza A and B and RSV. On 12/19/2021 patient seen in follow-up on selective care unit, he remains on high flow oxygen, per Airvo with 55 L and FiO2 of 85% and his pulse ox is 88- 94%. Patient is sleepy this morning however she arouses to voice, he answers simple questions, he feels very fatigued. Nursing reports that the patient does not sleep well at night and she was up until 4:00 in the morning area. Has been extensively diuresed, his IV Lasix has been switched to oral Lasix 40 mg twice daily however he appears to be dehydrated on clinical exam. His oral intake is fair, his appetite is good other than this morning she only consumed 25% of his meal because of being tired. Lung sounds are positive for bibasilar crackles, no rhonchi or wheezes, no significant edema involving his bilateral lower extremities, today's chest x-ray has been reviewed showing lung volumes, patchy bibasilar atelectasis or scarring, cardiomegaly. Today's labs have been reviewed showing white blood cell count is 7.8, hemoglobin of 15.9, sodium is 136, potassium is 4.5, chloride is 90, CO2 is 43, B1 is 21, creatinine 0.7, his LFTs are improved, AST is now within normal limits at 37, ALT is 252, and alkaline phosphatase is 93, his pro-calcitonin level came back negative at 0.12. Patient was tested negative for COVID-19 2, tested negative for influenza A and B, and RSV. On 12/20/2021 patient seen in follow-up on selective care unit, he is awake and alert, in no acute distress, he continues on Airvo at 55 L and FiO2 of 85% is pulse ox is around 96%, breathing comfortably, lung sounds are diminished, clear no crackles, no rhonchi he continues on oral Lasix 40 mg once daily and he is in -1.5 L net fluid balance over the last 24 hours, he continues on Aldactone 12.5 mg daily, and yesterday we gave the patient 2 doses of oral Diamox 250 mg twice daily. Today's labs including electrolytes and renal profile are still pending, vital signs have been stable overnight, no fever or chills, occasional cough, no phlegm production. No complaints of chest discomfort. His yesterday's chest x- ray showed low lung volumes, no pneumothorax or pleural effusion. Patchy bilateral airspace disease. On 12/21/2021 patient seen in follow-up on selective care unit, he is awake and alert, in no acute distress, remains on Airvo at 50 L and FiO2 of 80%, and his pulse ox is 92%, he is breathing quite comfortably, he remains on once daily dose of oral Lasix 40 mg, remains on Aldactone, he is in negative 1.3 L net fluid balance over the last 24 hours. Today's chest x-ray showing patchy basilar densities, and stable cardiomegaly. Today's labs have been reviewed, sodium is 137, potassium is 4.3, chloride is 98, CO2 is 37, BUN is 20 creatinine 0.72. Patient denies any worsening dyspnea, cough or chest discomfort. On 12/22/2021 rapid response team was called in view of worsening hypoxia, patient has been on Airvo at 50 L and FiO2 of 80%, and he was noted to have O2 saturations in the low 80s, and subsequently his Airvo flow was increased to 60 L and FiO2 of 90% and patient was also placed on in the 100% nonrebreather mask and continued to have low O2 saturations at around 83%. Patient is awake, she still refuses to wear the BiPAP, he is crying, but he is responding appropriately, does not appear to be in any acute distress. He had been on oral dose Lasix once daily, on Aldactone and once daily dose of Diamox 250 mg. Patient has been maintaining negative fluid balance over the last several days, and the last 24 hours he is in -1044 mL negative net fluid balance, today's chest x-ray showing cardiomegaly, low lung volumes, no evident pneumothorax, tidal patchy attenuation possibly related to atelectasis or interstitial edema. Patient was given an additional dose of IV Lasix 40 mg this morning, Bose catheter has been inserted and patient has put out over a liter in urine output. Subsequently he was transferred to the intensive care unit for closer monitoring, he remains awake and alert, denies any acute distress, mildly conges alfred cough, no phlegm production. He is watching TV, he is comfortable. Denies any chest discomfort. His had no fever or chills overnight, he starting to diurese. He still refuses to wear BiPAP, with deep breathing has pulse ox comes up to 96%. He will be given an incentive spirometer. Today's labs are still pending. Patient has been on GI and DVT prophylaxis with oral Pepcid and heparin 5000 units every 12 hours subcu. His d-dimer was elevated on admission, but CTA chest was completed showing no evidence of pulmonary embolism, lower extremity Dopplers were negative for DVT in the limitation of the study. On 12/23/2021, I'm seeing the patient for a follow-up. The patient remains on Airvo 60 L an FiO2 of 90%. The patient is able to maintain a pulse ox of above 88%. No signs of any significant respiratory distress. No significant cough sputum production chest vessel wheezing. The patient is having some oral dryness. The input output balance has been negative in the order of 1044 mL over the past 24 hours. The patient remains on IV Lasix 40 mg IV push every 12 hours and the patient is also on Aldactone 12.5 mg by mouth daily and the patient is also on Diamox 250 mg IV every 12 hours. The electrolytes from today shows a sodium of 136, serum bicarbonate 40, BUN is 25 with creatinine 0.8. Potassium level is at 4.0. The white cell count is at 9.7 with a hemoglobin of 15.9 and a platelet count of 206. The chest x-ray from today shows interstitial edema/CHF and cardiomegaly. The blood gases obtained yesterday showed a pH of 7.33 with an episode of 82 and this is consistent with an acute on top of chronic hypercapnic respiratory failure. The patient's pO2 was at 59 and this was done while the patient on Airvo 60 L an FiO2 of 90%. Objective - Vital Signs Vital signs: Vital Signs Temp 98.3 F 12/23/21 08:00 Pulse 73 12/23/21 11:30 Resp 20 12/23/21 10:00 BP 115/60 12/23/21 10:00 Pulse Ox 95 12/23/21 10:00 Intake & Output 12/22/21 12/23/21 12/23/21 18:59 06:59 18:59 Intake Total 490 200 Output Total 1685 950 340 Balance -1195 -750 -340 Weight 121.2 kg Intake: Oral 490 200 Output: Urine 1685 950 340 Other: Voiding Method Urinal Indwelling Catheter Indwelling Catheter - Exam GENERAL EXAM: Awake and alert, 45-year-old male with typical features of Down syndrome on currently resting comfortably in bed, currently on Airvo at 60 L and FiO2 of 90%, breathing comfortably with a pulse ox of 89-92% HEAD: Normocephalic/atraumatic. EYES: Normal reaction of pupils, equal size. Conjunctiva pink, sclera white. NOSE: Clear with pink turbinates. THROAT: No erythema or exudates. NECK: No masses, no JVD, no thyroid enlargement, no adenopathy. CHEST: No chest wall deformity. Symmetrical expansion. LUNGS: Equal air entry with diminished breath sounds, bibasilar crackles CVS: Regular rate and rhythm, normal S1 and S2, no gallops, no murmurs, no rubs ABDOMEN: Soft, nontender. No hepatosplenomegaly, normal bowel sounds, no guarding or rigidity. EXTREMITIES: No clubbing, no lower extremity edema no cyanosis, 2+ pulses and upper and lower extremities. MUSCULOSKELETAL: Muscle strength and tone normal. SPINE: No scoliosis or deformity SKIN: No rashes CENTRAL NERVOUS SYSTEM: Awake and alert, No focal deficits, tone is normal in all 4 extremities. - Labs CBC & Chem 7: 12/23/21 05:41 12/23/21 05:41 Labs: Abnormal Lab Results - Last 24 Hours (Table) 12/23/21 12/23/21 Range/Units 05:41 05:41 MCV 102.0 H (80.0-100.0) fL MCHC 30.4 L (31.0-37.0) g/dL RDW 23.9 H (11.5-15.5) % Macrocytosis Marked A Sodium 136 L (137-145) mmol/L Chloride 91 L (98-107) mmol/L Carbon Dioxide 40 H (22-30) mmol/L BUN 25 H (9-20) mg/dL Glucose 133 H (74-99) mg/dL ALT 72 H (4-49) U/L Albumin 3.2 L (3.5-5.0) g/dL Assessment and Plan Plan: #1. Acute hypoxic respiratory failure secondary to acute exacerbation of diastolic CHF. COVID-19 PCR, influenza A and B and RSV were negative. On 12/22 patient was noted to have worsening hypoxia, rapid response team was called, patient is currently on Airvo, 60 L and FiO2 of 90%, and the chest x- rays consistent with CHF/volume overload and the patient is on IV Lasix. The patient is a negative fluid balance. He has developed some metabolic alkalosis and the patient was also started on Diamox. Blood gases was noted that shows also a component of an acute on top of chronic hypoxic and hypercapnic respiratory failure. #2. Recent hospitalization for acute exacerbation of CHF with the possibility of aspiration related pneumonia and acute lung injury/ARDS is thought to be less likely. #3. Elevated troponin levels, likely related to acute CHF, please refer to cardiology consultation #4. Obstructive sleep apnea intolerant to CPAP #5. Morbid obesity with BMI 43.7 kg/m #6. History of Down syndrome #7. History of hyperlipidemia #8. History of obstructive sleep apnea, intolerant to CPAP #9. Obesity hypoventilation syndrome #10. Elevated d-dimer, without CT evidence of pulmonary embolism or DVT on lower extremity Dopplers Plan: Currently on Airvo at 60 l and Fio2 of 90% Refuses to wear Bipap Continue IV Lasix 40 mg every 12 hours Continued IV Diamox Continue Aldactone Monitor electrolytes including the serum bicarb may need to repeat her blood gases the next 24-48 hours breathing comfortably, mentation is awake and alert, oriented times three, no signs of any CO2 narcosis CXR reviewed, consistent with low lung volumes, atelectasis, interstitial edema, essentially unchanged compared to yesterday Titrate Fio2 to keep O2 sat 86-88% Encourage Deep breathing and coughing Provide incentive spirometer Follow up labs, cxr in am We'll continue to follow closely in the Intensive Care unit
--- NOTE | 2021-12-23 21:54 | P.PN ---
Subjective Progress Note Date: 12/23/21 This is a pleasant 46 years old male with past medical history of Asthma, GERD/Reflux, Hyperlipidemia, Memory Impairment, Down syndrome/IQ of about 74, chronic feet issue d/t gout, SHARRI but pt unable to tolerate CPAP Patient is poor historian, sitting in bed eating his breakfast with no difficulty on high flow nasal cannula, he can tell me he is in the hospital but he could not recognize which hospital, the date or the name of the president. When I ask her most recently came to the hospital he points to his right forearm block stating it is because of this. However patient states that his breathing is better now and he denies chest pain or abdominal pain or any other complaints He denies smoking, alcohol or illicit drugs. Patient is hypoxic on the presentation, with oxygen saturating 88% on 4 L and 82% on 50 L, currently on high flow nasal cannula 55%. Afebrile, tachypneic. Has leukocytosis of 11.7, rest of CBC is unremarkable. INR is 1.2 D-dimer is 3.4. BMP is unremarkable, liver enzymes significantly elevated with AST 642 and ALT 1133. Troponin is elevated at 0.4 and 0.2. Urine analysis is not suspicious of infection. Coronal versus nondetected. EKG: Normal sinus rhythm at [address]-T abnormality. Patient was started on aspirin 325 mg, IV Lasix and then oral Lasix 40 mg every 8 hours, bronchodilator. With cardiology team consulted Echocardiogram done on 09/2021 showing preserved ejection fraction of 50-55%. 12/17/2021 Can awake but sleepy, he follows commands. He still slightly tachypneic. He remains on high flow oxygen via nasal cannula at 60 L/m. Chest x-ray showed slight increase in the mid and lower lung zones Pro-calcitonin only mildly elevated 0.12, proBNP is normal which goes against CHF at 323 We are going to recheck cold, influenza and RSV 12/18/2021 Patient is awaken although is sleeping a lot. He looks pleasant and answer questions however he looks confused for example when asking is this year house he said yes. History of on airvo Quiring 60 L/M with 90% oxygen. He is has proximal area with unknown reason. This Procalcitonin and proBNP are both low level. CTA is negative for PE. There is no evidence of wheezing. His CTA showing bilateral infiltrates and obesity may contribute to factor. Pulmonary and cardiology team on the case Currently he is on oral Lasix 40 mg twice a day, aspirin 325 mg and subcu heparin Viral test for Covid, influenza and RSV came back negative 12/19/2021 Sleepy and drowsy most of the time, he is tachypneic, he still requiring oxygen supplementation at 55 L with saturation of 88%. ABG today showing compensated hypercapnia with pH normal at 7.3 and pCO2 elevated 77. PO2 is 74. ABG bicarb is 45 which is elevated. Also BMP is showing evidence of contraction alkalosis with elevated carbon dioxide 43 and elevated BUN/creatinine ratio 21/0.77. Lasix dose will be held today. Pulmonary and cardiology team on the case. Chest x-ray today showing pneumonia versus fibrotic changes/scar We will repeat pro-calcitonin, patient currently is not on antibiotic, he is on by mouth Lasix 40 mg daily and a stent of twice a day 12/20/2021 patient remains on oxygen, history of on airvo at 55 L/m with 88% His pro-calcitonin is 0.12, we going to repeat , His ABG showed normal pH 7.3, high pCO2 77 and low PaO2 74. He remains on diuretic, pulmonary cartilage team on the case 12/21/2021 Patient is more awake today he is alert still confused he follow commands with simple instructions only. It looks like he has some elements of dementia and memory impairment. Remains on airvo with 50 L and FiO2 of 83% His pro-calcitonin with repeated is normal 0.08. Chest x-ray showing atelectasis versus pneumonia Remains on Acetazolamide, oral Lasix once daily at 40 mg. And aspirin 325 mg 12/22/2021 Patient was transferred to the ICU for worsening hypoxia, he is awake and alert, follows simple commands but it looks almost at baseline. He does not talk much. He does not look in respiratory distress. His oxygen requirements increased back to 60 L/m at 90%. he is saturating at 94% His chest x-ray showing pneumonia versus scarring versus atelectasis His pH is 7.3 pCO2 82 and pO2 is 59 which is low. ProBNP is 191 Patient is refusing to wear BiPAP His Lasix to switch from oral and IV. Continued on aspirin 325 mg and acetazolamide. 12/23/2021 Patient is currently in the MICU. Still requiring high flow oxygen Airvo 60 L with FiO2 90%. Patient is awake and alert.follows simple commands but it looks almost at baseline. Currently being continued IV Lasix 40 mg twice daily and is also on spironolactone and Diamox. Chest x-ray showed correlate for interstitial edema, pneumonia, CHF not excluded versus atelectasis or scarring. Cardiomegaly. Laboratory data showed WBC 9.7 hemoglobin 15.9 and platelets 206 sodium 136 potassium 4.0 chloride 91 bicarb is 40 BUN 25 and creatinine 0.84 and albumin 3.2. Pulmonary and cardiology is on board. Current medications reviewed. Objective - Vital Signs Vital signs: Vital Signs Temp 98.7 F 12/23/21 12:00 Pulse 74 12/23/21 14:00 Resp 33 H 12/23/21 14:00 BP 108/48 12/23/21 14:00 Pulse Ox 92 L 12/23/21 13:00 Intake & Output 12/22/21 12/23/21 12/23/21 18:59 06:59 18:59 Intake Total 490 200 500 Output Total 1685 950 540 Balance -1195 -750 -40 Weight 121.2 kg Intake: Oral 490 200 500 Output: Urine 1685 950 540 Other: Voiding Method Urinal Indwelling Catheter Indwelling Catheter - Exam - Exam -GENERAL: The patient is alert and oriented x3, drowsy, not in any acute distress. Obese, generally tired HEENT: Pupils are round and equally reacting to light. EOMI. No scleral icterus. No conjunctival pallor. Normocephalic, atraumatic. No pharyngeal erythema. No thyromegaly. CARDIOVASCULAR: S1 and S2 present. No murmurs, rubs, or gallops. -PULMONARY: Chest is clear to auscultation, no wheezing or crackles. Mildly tachypneic ABDOMEN: Soft, nontender, nondistended, normoactive bowel sounds. No palpable organomegaly. MUSCULOSKELETAL: No joint swelling or deformity. EXTREMITIES: No cyanosis, clubbing, or pedal edema. NEUROLOGICAL: Gross neurological examination did not reveal any focal deficits. SKIN: No rashes. no petechiae. - Labs CBC & Chem 7: 12/23/21 05:41 12/23/21 05:41 Labs: Abnormal Lab Results - Last 24 Hours (Table) 12/23/21 12/23/21 Range/Units 05:41 05:41 MCV 102.0 H (80.0-100.0) fL MCHC 30.4 L (31.0-37.0) g/dL RDW 23.9 H (11.5-15.5) % Macrocytosis Marked A Sodium 136 L (137-145) mmol/L Chloride 91 L (98-107) mmol/L Carbon Dioxide 40 H (22-30) mmol/L BUN 25 H (9-20) mg/dL Glucose 133 H (74-99) mg/dL ALT 72 H (4-49) U/L Albumin 3.2 L (3.5-5.0) g/dL Assessment and Plan Assessment: Acute hypoxic respiratory failure secondary to diastolic CHF exacerbation. Requiring high flow oxygen via Airvo. Patient is refusing to wear BiPAP. Elevated troponin likely demand ischemia elevated d-dimer with no evidence of PE or DVT Elevated liver enzymes , improving CTA of the chest showing no pulmonary embolism, moderate pulmonary interstitial edema in the mid and lower lung colon Memory problem most likely related to yearly Alzheimer's dementia, given his history of Down syndrome. Down syndrome History of asthma History of GERD History of memory impairment History of obstructive sleep apnea, not on CPAP, cannot tolerate. History of gout Plan: This is a pleasant 46 years old male with Down syndrome who presents with acute CHF Continue with Lasix 40 mg IV twice a day, aldactone and added diamox. Continue with aspirin Labs and medication were reviewed..Monitor lytes and vitals. DVT and GI prophylaxis. DVT prophylaxis: Subcutaneous heparin GI Prophylaxis: Pepcid PT/OT: Pending Prognosis is guarded Time with Patient: Greater than 30
[2021-12-24 06:27] LABS: Anisocytosis Moderate; Basophils # (A) 0.1 k/uL (0-0.2); Basophils % (A) 1 %; Eosinophils # (A) 0.1 k/uL (0-0.7); Eosinophils % (A) 1 %; HCT 53.9 % (39.0-53.0); HGB 16.3 gm/dL (13.0-17.5); Hypochromasia Marked; Lymphocytes # (A) 2.8 k/uL (1.0-4.8); Lymphocytes % (A) 31 %; MCH 30.4 pg (25.0-35.0); MCHC 30.2 g/dL (31.0-37.0); MCV 100.8 fL (80.0-100.0); Macrocytosis Marked; Monocytes # (A) 0.5 k/uL (0-1.0); Monocytes % (A) 6 %; Neutrophils # (A) 5.2 k/uL (1.3-7.7); Neutrophils % (A) 58 %; Platelet Count 213 k/uL (150-450); Poikilocytosis Slight; RBC 5.35 m/uL (4.30-5.90); RDW 23.5 % (11.5-15.5)
[2021-12-24 06:44] LABS: ALT 52 U/L (4-49); AST 20 U/L (17-59); African American GFR (CKD) >90 (>60 ml/min/1.73 sqM); Albumin 3.2 g/dL (3.5-5.0); Alkaline Phosphatase 86 U/L (38-126); Blood Urea Nitrogen 29 mg/dL (9-20); Calcium 8.6 mg/dL (8.4-10.2); Chloride 90 mmol/L (98-107); Glucose 96 mg/dL (74-99); Non-African American GFR(CKD) >90 (>60 ml/min/1.73 sqM); Potassium 3.9 mmol/L (3.5-5.1); Sodium 132 mmol/L (137-145); Total Bilirubin 1.2 mg/dL (0.2-1.3); Total Protein 7.3 g/dL (6.3-8.2)
[2021-12-24 06:50] LABS: Anion Gap 1 mmol/L
[2021-12-24 06:52] LABS: Carbon Dioxide 41 mmol/L (22-30)
[2021-12-24 06:53] LABS: Anisocytosis (M) Present; Poikilocytosis (M) Present; Polychromasia Present
--- NOTE | 2021-12-24 07:35 | XR ---
EXAMINATION TYPE: XR chest 1V portable DATE OF EXAM: 12/24/2021 COMPARISON: Chest x-ray 12/23/2021 HISTORY: Shortness of breath TECHNIQUE: Single frontal view of the chest is obtained. FINDINGS: Bilateral airspace disease is noted, there is interval obscured appearance of the right he midiaphragm. There is no evident pneumothorax. Central vascularity is prominent, the heart is enlarge d. Difficult to exclude effusions. IMPRESSION: Correlate for congestive heart failure, pneumonia not excluded. Worsening airspace disea se may be present.
[2021-12-24] MEDS: SYMBICORT 160-4.5 MCG INHALER INHALATION SCH ×2 (07:59→19:27)
[2021-12-24] MEDS: IPRATROPIUM-ALBUTEROL 3 ML NEB INHALATION SCH ×4 (07:59→19:27)
[2021-12-24] MEDS: HEPARIN SODIUM,PORCINE/PF 5,000 UNIT/0.5 ML SYRINGE SQ SCH ×2 (08:53→21:26)
[2021-12-24] MEDS: FUROSEMIDE 10 MG/ML 4 ML VIAL IV SCH ×2 (08:53→21:26)
[2021-12-24] MEDS: SPIRONOLACTONE 25 MG TAB PO SCH (08:54)
[2021-12-24] MEDS: FAMOTIDINE 20 MG TAB PO SCH ×2 (08:54→21:26)
[2021-12-24] MEDS: ASPIRIN 81 MG PO SCH (08:55)
[2021-12-24] MEDS: ATORVASTATIN 40 MG TAB PO SCH (08:55)
--- NOTE | 2021-12-24 14:17 | P.PN ---
Subjective Progress Note Date: 12/24/21 This is a pleasant 46-year-old male patient with a history of Down syndrome, diastolic congestive heart failure, recurrent aspiration pneumonias, obstructive sleep apnea intolerant to CPAP, hyperlipidemia, gastroesophageal reflux disease. He follows with Dr. Quintanilla as his primary care provider. He was recently here for almost a month for multifactorial issues regarding shortness of breath secondary to diastolic congestive heart failure aspiration pneumonia and hypoventilation syndrome. He was discharged on 11/13/2021. He was brought back to the emergency room yesterday with increasing shortness of breath. X-ray showed progressive patchy perihilar and basilar infiltrates compared to 11/11/2021. CT angiogram revealed no evidence of pulmonary embolism. There is moderate pulmonary interstitial edema in the mid and lower lung colon. Previous echocardiogram revealed preserved left ventricular systolic function with ejection fraction 50-55%. Lower extremities negative for DVTs. White cou nt 11.7. Hemoglobin 14.8. INR 1.2. D-dimer 3.44. Sodium 134. Potassium 3.9. Chloride 87. Bicarb 42. BUN 18. Creatinine 0.61. Glucose 143. Troponins 0.40, 0.28, 0.25. ProBNP 3290. Urinalysis clean. Chavira virus by PCR not detected. Pro-calcitonin pending. He's been initiated on DuoNeb inhalations, Symbicort. Lasix 40 mg by mouth every 8 hours. Aldactone. Progress note dated 12/17/2021. 46-year-old male with history of down syndrome, diastolic CHF, recurrent aspiration pneumonia, sleep apnea, hyperlipidemia, and GERD. His primary care physician is Dr. Quintanilla. He was recently here for almost a month for shortness of breath, secondary to CHF. At that time, he was also thought to have aspiration pneumonia. He was finally discharged on 11/13/2021. He was brought back to the emergency room, 2 days ago, with increasing shortness of breath, and diffuse bilateral infiltrates. There was no pulmonary embolism on CT angiogram. Currently, the patient is on AIRVO, at 60 L/m with an FiO2 of 90%. He's not receiving any IV fluids. His nurse held his nitroglycerin this morning, because his blood pressure was a bit soft. Labs today include a white count of 7.2, hemoglobin 15.8, hematocrit 51.7, and a platelet count of 188,000. Sodium was 138, potassium 3.9, chloride 99, CO2 37, anion gap 12, BUN 13, creatinine 0.57. AST was 164 and ALT was 591. Troponins were 0.282 and 0.255. Urine was negative. Chest x-ray was consistent with cardiomegaly, and pulmonary vascular congestion/CHF. On 12/18/2021 patient seen in follow-up on selective care unit, he is currently on Airvo at 60 L and FiO2 of 92% and his pulse ox is greater than 97% and this can probably be weaned further down, he is awake and alert, oriented 3, breathing comfortably he is resting in bed watching TV. He is pleasant and cooperative. he remains on oral Lasix at 40 mg every 12 hours, he is sofia ntaining negative fluid balance of -625 mL over the last 24 hours. Chest x-ray findings were consistent with acute exacerbation of CHF with known diastolic dysfunction, his CTA chest was negative for evidence of pulmonary embolism. It did show moderate pulmonary interstitial edema and mid and the lower lung colon. Patient continues on nebulized bronchodilators, he remains on Symbicort. Patient has no significant edema in his bilateral lower legs. Dopplers of the lower extremities were limited due to patient's body habitus, but within the limitation of the study there was no sonographic findings of DVT in the lower extremities. Today's labs have been reviewed, his white blood cell, 7.2, hemoglobin is 15.8, sodium is 138, potassium 3.9, chloride is 89, CO2 is 37, BUN 13 creatinine 0.57. Patient tested negative for COVID-19, influenza A and B and RSV. On 12/19/2021 patient seen in follow-up on selective care unit, he remains on high flow oxygen, per Airvo with 55 L and FiO2 of 85% and his pulse ox is 88- 94%. Patient is sleepy this morning however she arouses to voice, he answers simple questions, he feels very fatigued. Nursing reports that the patient does not sleep well at night and she was up until 4:00 in the morning area. Has been extensively diuresed, his IV Lasix has been switched to oral Lasix 40 mg twice daily however he appears to be dehydrated on clinical exam. His oral intake is fair, his appetite is good other than this morning she only consumed 25% of his meal because of being tired. Lung sounds are positive for bibasilar crackles, no rhonchi or wheezes, no significant edema involving his bilateral lower extremities, today's chest x-ray has been reviewed showing lung volumes, patchy bibasilar atelectasis or scarring, cardiomegaly. Today's labs have been reviewed showing white blood cell count is 7.8, hemoglobin of 15.9, sodium is 136, potassium is 4.5, chloride is 90, CO2 is 43, B1 is 21, creatinine 0.7, his LFTs are improved, AST is now within normal limits at 37, ALT is 252, and alkaline phosphatase is 93, his pro-calcitonin level came back negative at 0.12. Patient was tested negative for COVID-19 2, tested negative for influenza A and B, and RSV. On 12/20/2021 patient seen in follow-up on selective care unit, he is awake and alert, in no acute distress, he continues on Airvo at 55 L and FiO2 of 85% is pulse ox is around 96%, breathing comfortably, lung sounds are diminished, clear no crackles, no rhonchi he continues on oral Lasix 40 mg once daily and he is in -1.5 L net fluid balance over the last 24 hours, he continues on Aldactone 12.5 mg daily, and yesterday we gave the patient 2 doses of oral Diamox 250 mg twice daily. Today's labs including electrolytes and renal profile are still pending, vital signs have been stable overnight, no fever or chills, occasional cough, no phlegm production. No complaints of chest discomfort. His yesterday's chest x- ray showed low lung volumes, no pneumothorax or pleural effusion. Patchy bilateral airspace disease. On 12/21/2021 patient seen in follow-up on selective care unit, he is awake and alert, in no acute distress, remains on Airvo at 50 L and FiO2 of 80%, and his pulse ox is 92%, he is breathing quite comfortably, he remains on once daily dose of oral Lasix 40 mg, remains on Aldactone, he is in negative 1.3 L net fluid balance over the last 24 hours. Today's chest x-ray showing patchy basilar densities, and stable cardiomegaly. Today's labs have been reviewed, sodium is 137, potassium is 4.3, chloride is 98, CO2 is 37, BUN is 20 creatinine 0.72. Patient denies any worsening dyspnea, cough or chest discomfort. On 12/22/2021 rapid response team was called in view of worsening hypoxia, patient has been on Airvo at 50 L and FiO2 of 80%, and he was noted to have O2 saturations in the low 80s, and subsequently his Airvo flow was increased to 60 L and FiO2 of 90% and patient was also placed on in the 100% nonrebreather mask and continued to have low O2 saturations at around 83%. Patient is awake, she still refuses to wear the BiPAP, he is crying, but he is responding appropriately, does not appear to be in any acute distress. He had been on oral dose Lasix once daily, on Aldactone and once daily dose of Diamox 250 mg. Patient has been maintaining negative fluid balance over the last several days, and the last 24 hours he is in -1044 mL negative net fluid balance, today's chest x-ray showing cardiomegaly, low lung volumes, no evident pneumothorax, tidal patchy attenuation possibly related to atelectasis or interstitial edema. Patient was given an additional dose of IV Lasix 40 mg this morning, Bose catheter has been inserted and patient has put out over a liter in urine output. Subsequently he was transferred to the intensive care unit for closer monitoring, he remains awake and alert, denies any acute distress, mildly conges alfred cough, no phlegm production. He is watching TV, he is comfortable. Denies any chest discomfort. His had no fever or chills overnight, he starting to diurese. He still refuses to wear BiPAP, with deep breathing has pulse ox comes up to 96%. He will be given an incentive spirometer. Today's labs are still pending. Patient has been on GI and DVT prophylaxis with oral Pepcid and heparin 5000 units every 12 hours subcu. His d-dimer was elevated on admission, but CTA chest was completed showing no evidence of pulmonary embolism, lower extremity Dopplers were negative for DVT in the limitation of the study. On 12/23/2021, I'm seeing the patient for a follow-up. The patient remains on Airvo 60 L an FiO2 of 90%. The patient is able to maintain a pulse ox of above 88%. No signs of any significant respiratory distress. No significant cough sputum production chest vessel wheezing. The patient is having some oral dryness. The input output balance has been negative in the order of 1044 mL over the past 24 hours. The patient remains on IV Lasix 40 mg IV push every 12 hours and the patient is also on Aldactone 12.5 mg by mouth daily and the patient is also on Diamox 250 mg IV every 12 hours. The electrolytes from today shows a sodium of 136, serum bicarbonate 40, BUN is 25 with creatinine 0.8. Potassium level is at 4.0. The white cell count is at 9.7 with a hemoglobin of 15.9 and a platelet count of 206. The chest x-ray from today shows interstitial edema/CHF and cardiomegaly. The blood gases obtained yesterday showed a pH of 7.33 with an episode of 82 and this is consistent with an acute on top of chronic hypercapnic respiratory failure. The patient's pO2 was at 59 and this was done while the patient on Airvo 60 L an FiO2 of 90%. 12/24/2021, I'm seeing the patient for a follow-up. He is comfortable. Upon doing some breathing exercises and deep breathing, the patient is able to bring up his oxygen saturation up to 97%. This further supports presence of significant amount of atelectasis in lung bases. Based on that, I made recommendations to set up this patient on a chair and be more aggressive with his pulmonary toileting. He remains on Airvo 60 L with an FiO2 of 90%. The patient is still on Lasix and Diamox. Overall fluid balance is -1.98 his over the past 24 hours. Serum bicarbonate 41. BUN is at 29 with a creatinine of 0.89. He is doing well. He denies having any respiratory distress. No significant cough sputum production chest that is so wheezing. He is tolerating his diet. No other issues otherwise for now. Objective - Vital Signs Vital signs: Vital Signs Temp 99.6 F 12/24/21 12:00 Pulse 75 12/24/21 13:00 Resp 14 12/24/21 13:00 BP 89/59 12/24/21 13:00 Pulse Ox 85 L 12/24/21 13:00 Intake & Output 12/23/21 12/24/21 12/24/21 18:59 06:59 18:59 Intake Total 500 150 340 Output Total 740 1075 1090 Balance -240 -925 -750 Weight 118.8 kg Intake: Oral 500 150 100 Tube Feeding 240 Output: Urine 740 1075 1090 Other: Voiding Method Indwelling Catheter Indwelling Catheter Indwelling Catheter # Voids 0 # Bowel Movements 0 - Exam GENERAL EXAM: Awake and alert, 45-year-old male with typical features of Down syndrome on currently resting comfortably in bed, currently on Airvo at 60 L and FiO2 of 90%, breathing comfortably with a pulse ox of 89-92% HEAD: Normocephalic/atraumatic. EYES: Normal reaction of pupils, equal size. Conjunctiva pink, sclera white. NOSE: Clear with pink turbinates. THROAT: No erythema or exudates. NECK: No masses, no JVD, no thyroid enlargement, no adenopathy. CHEST: No chest wall deformity. Symmetrical expansion. LUNGS: Equal air entry with diminished breath sounds, bibasilar crackles CVS: Regular rate and rhythm, normal S1 and S2, no gallops, no murmurs, no rubs ABDOMEN: Soft, nontender. No hepatosplenomegaly, normal bowel sounds, no guarding or rigidity. EXTREMITIES: No clubbing, no lower extremity edema no cyanosis, 2+ pulses and upper and lower extremities. MUSCULOSKELETAL: Muscle strength and tone normal. SPINE: No scoliosis or deformity SKIN: No rashes CENTRAL NERVOUS SYSTEM: Awake and alert, No focal deficits, tone is normal in all 4 extremities. - Labs CBC & Chem 7: 12/24/21 06:00 12/24/21 06:00 Labs: Abnormal Lab Results - Last 24 Hours (Table) 12/24/21 12/24/21 Range/Units 06:00 06:00 Hct 53.9 H (39.0-53.0) % MCV 100.8 H (80.0-100.0) fL MCHC 30.2 L (31.0-37.0) g/dL RDW 23.5 H (11.5-15.5) % Macrocytosis Marked A Sodium 132 L (137-145) mmol/L Chloride 90 L (98-107) mmol/L Carbon Dioxide 41 H* (22-30) mmol/L BUN 29 H (9-20) mg/dL ALT 52 H (4-49) U/L Albumin 3.2 L (3.5-5.0) g/dL Assessment and Plan Plan: #1. Acute hypoxic respiratory failure secondary to acute exacerbation of diastolic CHF. COVID-19 PCR, influenza A and B and RSV were negative. On 12/22/2021 patient was noted to have worsening hypoxia, rapid response team was called, patient is currently on Airvo, 60 L and FiO2 of 90%, and the chest x- rays consistent with CHF/volume overload and the patient is on IV Lasix. The patient is a negative fluid balance. He has developed some metabolic alkalosis and the patient was also started on Diamox. Blood gases was noted that shows also a component of an acute on top of chronic hypoxic and hypercapnic respiratory failure. The patient is a negative fluid balance. He needs to do more in terms of his pulmonary toileting. Aggressive pulmonary toileting will be needed. I suspect his hypoxia story failure is due to a component of CHF, atelectasis and hypoventilation. #2. Recent hospitalization for acute exacerbation of CHF with the possibility of aspiration related pneumonia and acute lung injury/ARDS is thought to be less likely. #3. Elevated troponin levels, likely related to acute CHF, please refer to cardiology consultation #4. Obstructive sleep apnea intolerant to CPAP #5. Morbid obesity with BMI 43.7 kg/m #6. History of Down syndrome #7. History of hyperlipidemia #8. History of obstructive sleep apnea, intolerant to CPAP #9. Obesity hypoventilation syndrome #10. Elevated d-dimer, without CT evidence of pulmonary embolism or DVT on lower extremity Dopplers Plan: Currently on Airvo at 60 l and Fio2 of 90% Refuses to wear Bipap Continue IV Lasix 40 mg every 12 hours Continued IV Diamox Continue Aldactone Monitor electrolytes including the serum bicarb Overall fluid balance is estimated been negative in the order of 1.9 L Monitor lites) daily basis breathing comfortably, mentation is awake and alert, oriented times three, no signs of any CO2 narcosis CXR reviewed, consistent with low lung volumes, atelectasis, interstitial edema, essentially unchanged compared to yesterday Sit up this patient on a chair Provide incentive spirometer Follow up labs, cxr in am We'll continue to follow closely in the Intensive Care unit
[2021-12-25 07:20] LABS: Anisocytosis Moderate; Basophils % (A) 1 %; Eosinophils # (A) 0.1 k/uL (0-0.7); Eosinophils % (A) 1 %; HCT 51.7 % (39.0-53.0); HGB 15.6 gm/dL (13.0-17.5); Hypochromasia Marked; Lymphocytes # (A) 1.8 k/uL (1.0-4.8); Lymphocytes % (A) 28 %; MCH 30.3 pg (25.0-35.0); MCHC 30.1 g/dL (31.0-37.0); MCV 100.7 fL (80.0-100.0); Macrocytosis Marked; Mean Platelet Volume 8.8; Monocytes # (A) 0.4 k/uL (0-1.0); Monocytes % (A) 6 %; Neutrophils % (A) 63 %; Platelet Count 209 k/uL (150-450); RBC 5.14 m/uL (4.30-5.90); RDW 23.3 % (11.5-15.5); WBC 6.5 k/uL (3.8-10.6)
[2021-12-25 07:40] LABS: ALT 35 U/L (4-49); AST 20 U/L (17-59); African American GFR (CKD) >90 (>60 ml/min/1.73 sqM); Alkaline Phosphatase 76 U/L (38-126); Anion Gap 2 mmol/L; Blood Urea Nitrogen 29 mg/dL (9-20); Calcium 8.2 mg/dL (8.4-10.2); Carbon Dioxide 40 mmol/L (22-30); Chloride 92 mmol/L (98-107); Glucose 170 mg/dL (74-99); Non-African American GFR(CKD) >90 (>60 ml/min/1.73 sqM); Potassium 3.6 mmol/L (3.5-5.1); Sodium 134 mmol/L (137-145); Total Protein 7.1 g/dL (6.3-8.2)
[2021-12-25] MEDS: IPRATROPIUM-ALBUTEROL 3 ML NEB INHALATION SCH ×4 (07:43→20:18)
[2021-12-25] MEDS: SYMBICORT 160-4.5 MCG INHALER INHALATION SCH ×2 (07:43→20:18)
[2021-12-25] MEDS ORDERED: Potassium Replacement Protocol 1 EACH MISC MISCELLANE PRN (08:03)
[2021-12-25] MEDS: HEPARIN SODIUM,PORCINE/PF 5,000 UNIT/0.5 ML SYRINGE SQ SCH ×2 (08:26→21:58)
[2021-12-25] MEDS: SPIRONOLACTONE 25 MG TAB PO SCH (08:26)
[2021-12-25] MEDS: ATORVASTATIN 40 MG TAB PO SCH (08:26)
[2021-12-25] MEDS: ASPIRIN 81 MG PO SCH (08:27)
[2021-12-25] MEDS: FUROSEMIDE 10 MG/ML 4 ML VIAL IV SCH ×2 (08:27→21:55)
[2021-12-25] MEDS: FAMOTIDINE 20 MG TAB PO SCH ×2 (08:27→21:58)
[2021-12-25] MEDS ORDERED: POTASSIUM CHLORIDE ER 20 MEQ TAB.ER PO SCH (09:00)
--- NOTE | 2021-12-25 09:18 | XR ---
EXAMINATION TYPE: XR chest 1V portable DATE OF EXAM: 12/25/2021 COMPARISON: Chest x-ray 12/24/2021 HISTORY: Shortness of breath TECHNIQUE: Single frontal view of the chest is obtained. FINDINGS: Bilateral airspace disease is noted, there may be some slight interval improvement in aera tion. No other interval change. IMPRESSION: Some slight interval improvement in aeration within the lungs is suspected.
--- NOTE | 2021-12-25 12:41 | P.PN ---
Subjective Progress Note Date: 12/25/21 This is a pleasant 46-year-old male patient with a history of Down syndrome, diastolic congestive heart failure, recurrent aspiration pneumonias, obstructive sleep apnea intolerant to CPAP, hyperlipidemia, gastroesophageal reflux disease. He follows with Dr. Quintanilla as his primary care provider. He was recently here for almost a month for multifactorial issues regarding shortness of breath secondary to diastolic congestive heart failure aspiration pneumonia and hypoventilation syndrome. He was discharged on 11/13/2021. He was brought back to the emergency room yesterday with increasing shortness of breath. X-ray showed progressive patchy perihilar and basilar infiltrates compared to 11/11/2021. CT angiogram revealed no evidence of pulmonary embolism. There is moderate pulmonary interstitial edema in the mid and lower lung colon. Previous echocardiogram revealed preserved left ventricular systolic function with ejection fraction 50-55%. Lower extremities negative for DVTs. White cou nt 11.7. Hemoglobin 14.8. INR 1.2. D-dimer 3.44. Sodium 134. Potassium 3.9. Chloride 87. Bicarb 42. BUN 18. Creatinine 0.61. Glucose 143. Troponins 0.40, 0.28, 0.25. ProBNP 3290. Urinalysis clean. Chavira virus by PCR not detected. Pro-calcitonin pending. He's been initiated on DuoNeb inhalations, Symbicort. Lasix 40 mg by mouth every 8 hours. Aldactone. Progress note dated 12/17/2021. 46-year-old male with history of down syndrome, diastolic CHF, recurrent aspiration pneumonia, sleep apnea, hyperlipidemia, and GERD. His primary care physician is Dr. Quintanilla. He was recently here for almost a month for shortness of breath, secondary to CHF. At that time, he was also thought to have aspiration pneumonia. He was finally discharged on 11/13/2021. He was brought back to the emergency room, 2 days ago, with increasing shortness of breath, and diffuse bilateral infiltrates. There was no pulmonary embolism on CT angiogram. Currently, the patient is on AIRVO, at 60 L/m with an FiO2 of 90%. He's not receiving any IV fluids. His nurse held his nitroglycerin this morning, because his blood pressure was a bit soft. Labs today include a white count of 7.2, hemoglobin 15.8, hematocrit 51.7, and a platelet count of 188,000. Sodium was 138, potassium 3.9, chloride 99, CO2 37, anion gap 12, BUN 13, creatinine 0.57. AST was 164 and ALT was 591. Troponins were 0.282 and 0.255. Urine was negative. Chest x-ray was consistent with cardiomegaly, and pulmonary vascular congestion/CHF. On 12/18/2021 patient seen in follow-up on selective care unit, he is currently on Airvo at 60 L and FiO2 of 92% and his pulse ox is greater than 97% and this can probably be weaned further down, he is awake and alert, oriented 3, breathing comfortably he is resting in bed watching TV. He is pleasant and cooperative. he remains on oral Lasix at 40 mg every 12 hours, he is sofia ntaining negative fluid balance of -625 mL over the last 24 hours. Chest x-ray findings were consistent with acute exacerbation of CHF with known diastolic dysfunction, his CTA chest was negative for evidence of pulmonary embolism. It did show moderate pulmonary interstitial edema and mid and the lower lung colon. Patient continues on nebulized bronchodilators, he remains on Symbicort. Patient has no significant edema in his bilateral lower legs. Dopplers of the lower extremities were limited due to patient's body habitus, but within the limitation of the study there was no sonographic findings of DVT in the lower extremities. Today's labs have been reviewed, his white blood cell, 7.2, hemoglobin is 15.8, sodium is 138, potassium 3.9, chloride is 89, CO2 is 37, BUN 13 creatinine 0.57. Patient tested negative for COVID-19, influenza A and B and RSV. On 12/19/2021 patient seen in follow-up on selective care unit, he remains on high flow oxygen, per Airvo with 55 L and FiO2 of 85% and his pulse ox is 88- 94%. Patient is sleepy this morning however she arouses to voice, he answers simple questions, he feels very fatigued. Nursing reports that the patient does not sleep well at night and she was up until 4:00 in the morning area. Has been extensively diuresed, his IV Lasix has been switched to oral Lasix 40 mg twice daily however he appears to be dehydrated on clinical exam. His oral intake is fair, his appetite is good other than this morning she only consumed 25% of his meal because of being tired. Lung sounds are positive for bibasilar crackles, no rhonchi or wheezes, no significant edema involving his bilateral lower extremities, today's chest x-ray has been reviewed showing lung volumes, patchy bibasilar atelectasis or scarring, cardiomegaly. Today's labs have been reviewed showing white blood cell count is 7.8, hemoglobin of 15.9, sodium is 136, potassium is 4.5, chloride is 90, CO2 is 43, B1 is 21, creatinine 0.7, his LFTs are improved, AST is now within normal limits at 37, ALT is 252, and alkaline phosphatase is 93, his pro-calcitonin level came back negative at 0.12. Patient was tested negative for COVID-19 2, tested negative for influenza A and B, and RSV. On 12/20/2021 patient seen in follow-up on selective care unit, he is awake and alert, in no acute distress, he continues on Airvo at 55 L and FiO2 of 85% is pulse ox is around 96%, breathing comfortably, lung sounds are diminished, clear no crackles, no rhonchi he continues on oral Lasix 40 mg once daily and he is in -1.5 L net fluid balance over the last 24 hours, he continues on Aldactone 12.5 mg daily, and yesterday we gave the patient 2 doses of oral Diamox 250 mg twice daily. Today's labs including electrolytes and renal profile are still pending, vital signs have been stable overnight, no fever or chills, occasional cough, no phlegm production. No complaints of chest discomfort. His yesterday's chest x- ray showed low lung volumes, no pneumothorax or pleural effusion. Patchy bilateral airspace disease. On 12/21/2021 patient seen in follow-up on selective care unit, he is awake and alert, in no acute distress, remains on Airvo at 50 L and FiO2 of 80%, and his pulse ox is 92%, he is breathing quite comfortably, he remains on once daily dose of oral Lasix 40 mg, remains on Aldactone, he is in negative 1.3 L net fluid balance over the last 24 hours. Today's chest x-ray showing patchy basilar densities, and stable cardiomegaly. Today's labs have been reviewed, sodium is 137, potassium is 4.3, chloride is 98, CO2 is 37, BUN is 20 creatinine 0.72. Patient denies any worsening dyspnea, cough or chest discomfort. On 12/22/2021 rapid response team was called in view of worsening hypoxia, patient has been on Airvo at 50 L and FiO2 of 80%, and he was noted to have O2 saturations in the low 80s, and subsequently his Airvo flow was increased to 60 L and FiO2 of 90% and patient was also placed on in the 100% nonrebreather mask and continued to have low O2 saturations at around 83%. Patient is awake, she still refuses to wear the BiPAP, he is crying, but he is responding appropriately, does not appear to be in any acute distress. He had been on oral dose Lasix once daily, on Aldactone and once daily dose of Diamox 250 mg. Patient has been maintaining negative fluid balance over the last several days, and the last 24 hours he is in -1044 mL negative net fluid balance, today's chest x-ray showing cardiomegaly, low lung volumes, no evident pneumothorax, tidal patchy attenuation possibly related to atelectasis or interstitial edema. Patient was given an additional dose of IV Lasix 40 mg this morning, Bose catheter has been inserted and patient has put out over a liter in urine output. Subsequently he was transferred to the intensive care unit for closer monitoring, he remains awake and alert, denies any acute distress, mildly conges alfred cough, no phlegm production. He is watching TV, he is comfortable. Denies any chest discomfort. His had no fever or chills overnight, he starting to diurese. He still refuses to wear BiPAP, with deep breathing has pulse ox comes up to 96%. He will be given an incentive spirometer. Today's labs are still pending. Patient has been on GI and DVT prophylaxis with oral Pepcid and heparin 5000 units every 12 hours subcu. His d-dimer was elevated on admission, but CTA chest was completed showing no evidence of pulmonary embolism, lower extremity Dopplers were negative for DVT in the limitation of the study. On 12/23/2021, I'm seeing the patient for a follow-up. The patient remains on Airvo 60 L an FiO2 of 90%. The patient is able to maintain a pulse ox of above 88%. No signs of any significant respiratory distress. No significant cough sputum production chest vessel wheezing. The patient is having some oral dryness. The input output balance has been negative in the order of 1044 mL over the past 24 hours. The patient remains on IV Lasix 40 mg IV push every 12 hours and the patient is also on Aldactone 12.5 mg by mouth daily and the patient is also on Diamox 250 mg IV every 12 hours. The electrolytes from today shows a sodium of 136, serum bicarbonate 40, BUN is 25 with creatinine 0.8. Potassium level is at 4.0. The white cell count is at 9.7 with a hemoglobin of 15.9 and a platelet count of 206. The chest x-ray from today shows interstitial edema/CHF and cardiomegaly. The blood gases obtained yesterday showed a pH of 7.33 with an episode of 82 and this is consistent with an acute on top of chronic hypercapnic respiratory failure. The patient's pO2 was at 59 and this was done while the patient on Airvo 60 L an FiO2 of 90%. 12/24/2021, I'm seeing the patient for a follow-up. He is comfortable. Upon doing some breathing exercises and deep breathing, the patient is able to bring up his oxygen saturation up to 97%. This further supports presence of significant amount of atelectasis in lung bases. Based on that, I made recommendations to set up this patient on a chair and be more aggressive with his pulmonary toileting. He remains on Airvo 60 L with an FiO2 of 90%. The patient is still on Lasix and Diamox. Overall fluid balance is -1.98 his over the past 24 hours. Serum bicarbonate 41. BUN is at 29 with a creatinine of 0.89. He is doing well. He denies having any respiratory distress. No significant cough sputum production chest that is so wheezing. He is tolerating his diet. No other issues otherwise for now. 12/25/2021, seeing the patient for a follow-up. Patient is doing well. Remains on Airvo 60 L with an FiO2 of 90%. Continues to undergo aggressive diuresis and aggressive pulmonary toileting. The patient was provided incentive spirometer. The patient was also most on a chair when he was able to breathe more co mfortably. Overall fluid balance has been negative at least 1 L over the past 24 hours and the patient is headed towards a negative fluid balance over the next 24 hours. His serum bicarbonate 40. BUN is at 29 with a creatinine of 0.89. Meanwhile, the patient is still on Lasix 40 mg IV every 12 hours. The patient is also receiving Diamox. The patient on Aldactone. Potassium level is at 3.6 and this being replaced per protocol. Oxidation is improved and the patient's pulse is 97% on above-mentioned Airvo setting. He is awake. He is alert. He is not showing any signs of any respiratory distress. Objective - Vital Signs Vital signs: Vital Signs Temp 98.6 F 12/25/21 12:00 Pulse 75 12/25/21 12:00 Resp 14 12/25/21 12:00 BP 111/96 12/25/21 12:00 Pulse Ox 95 12/25/21 12:18 Intake & Output 12/24/21 12/25/21 12/25/21 18:59 06:59 18:59 Intake Total 295 230 2902 Output Total 1440 1900 1250 Balance -600 -1650 -200 Weight 122.2 kg Intake: Oral 007 427 5143 Tube Feeding 240 Output: Urine 1440 1900 1250 Other: Voiding Method Indwelling Catheter Indwelling Catheter Indwelling Catheter - Exam GENERAL EXAM: Awake and alert, 45-year-old male with typical features of Down syndrome on currently resting comfortably in bed, currently on Airvo at 60 L and FiO2 of 90%, breathing comfortably with a pulse ox of 89-92% HEAD: Normocephalic/atraumatic. EYES: Normal reaction of pupils, equal size. Conjunctiva pink, sclera white. NOSE: Clear with pink turbinates. THROAT: No erythema or exudates. NECK: No masses, no JVD, no thyroid enlargement, no adenopathy. CHEST: No chest wall deformity. Symmetrical expansion. LUNGS: Equal air entry with diminished breath sounds, bibasilar crackles CVS: Regular rate and rhythm, normal S1 and S2, no gallops, no murmurs, no rubs ABDOMEN: Soft, nontender. No hepatosplenomegaly, normal bowel sounds, no guarding or rigidity. EXTREMITIES: No clubbing, no lower extremity edema no cyanosis, 2+ pulses and upper and lower extremities. MUSCULOSKELETAL: Muscle strength and tone normal. SPINE: No scoliosis or deformity SKIN: No rashes CENTRAL NERVOUS SYSTEM: Awake and alert, No focal deficits, tone is normal in all 4 extremities. - Labs CBC & Chem 7: 12/25/21 06:36 12/25/21 06:36 Labs: Abnormal Lab Results - Last 24 Hours (Table) 12/25/21 12/25/21 Range/Units 06:36 06:36 MCV 100.7 H (80.0-100.0) fL MCHC 30.1 L (31.0-37.0) g/dL RDW 23.3 H (11.5-15.5) % Macrocytosis Marked A Sodium 134 L (137-145) mmol/L Chloride 92 L (98-107) mmol/L Carbon Dioxide 40 H (22-30) mmol/L BUN 29 H (9-20) mg/dL Glucose 170 H (74-99) mg/dL Calcium 8.2 L (8.4-10.2) mg/dL Albumin 3.0 L (3.5-5.0) g/dL Assessment and Plan Plan: #1. Acute hypoxic respiratory failure secondary to acute exacerbation of diastolic CHF. COVID-19 PCR, influenza A and B and RSV were negative. On 2021 patient was noted to have worsening hypoxia, rapid response team was called, patient is currently on Airvo, 60 L and FiO2 of 90%, and the chest x- rays consistent with CHF/volume overload and the patient is on IV Lasix. The patient is a negative fluid balance. He has developed some metabolic alkalosis and the patient was also started on Diamox. Blood gases was noted that shows also a component of an acute on top of chronic hypoxic and hypercapnic respiratory failure. The patient is a negative fluid balance. He needs to do more in terms of his pulmonary toileting. Aggressive pulmonary toileting will be needed. I suspect his hypoxia story failure is due to a component of CHF, atelectasis and hypoventilation. Clinically patient is improving. The patient is still on Airvo although the patient demonstrated adequate oxygenation while being on Airvo and the patient has also that she is a negative fluid balance. #2. Recent hospitalization for acute exacerbation of CHF with the possibility of aspiration related pneumonia and acute lung injury/ARDS is thought to be less likely. #3. Elevated troponin levels, likely related to acute CHF, please refer to cardiology consultation #4. Obstructive sleep apnea intolerant to CPAP #5. Morbid obesity with BMI 43.7 kg/m #6. History of Down syndrome #7. History of hyperlipidemia #8. History of obstructive sleep apnea, intolerant to CPAP #9. Obesity hypoventilation syndrome #10. Elevated d-dimer, without CT evidence of pulmonary embolism or DVT on lower extremity Dopplers Plan: We'll try to discontinue the Airvo and proceed with 15 L about 2 by nasal cannula as the patient is able to tolerate we'll continue our weaning process. Refuses to wear Bipap Continue IV Lasix 40 mg every 12 hours Continued IV Diamox Continue Aldactone Monitor electrolytes including the serum bicarb , the serum bicarb is stable at 41. Mild hypokalemia. Renal function stable. Overall fluid balance is estimated been negative in the order of 1.1L breathing comfortably, mentation is awake and alert, oriented times three, no signs of any CO2 narcosis CXR reviewed, consistent with low lung volumes, atelectasis, interstitial edema, essentially unchanged compared to yesterday Sit up this patient on a chair Provide incentive spirometer We'll continue to follow closely in the Intensive Care unit, and unwilling to move the patient also didn't intensive care unit with the patient's Airvo has been discontinued and he is placed on 15 L of oxygen by nasal cannula.
[2021-12-25] MEDS ORDERED: OXYMETAZOLINE 0.05% NASL SPRAY 1 SPRAY BOTTLE NASAL PRN (14:52)
[2021-12-26 06:32] LABS: Anisocytosis Moderate; Basophils # (A) 0.1 k/uL (0-0.2); Basophils % (A) 1 %; Eosinophils # (A) 0.1 k/uL (0-0.7); Eosinophils % (A) 1 %; HGB 15.5 gm/dL (13.0-17.5); Hypochromasia Marked; Lymphocytes # (A) 2.3 k/uL (1.0-4.8); Lymphocytes % (A) 25 %; MCH 30.4 pg (25.0-35.0); MCHC 30.4 g/dL (31.0-37.0); MCV 99.9 fL (80.0-100.0); Macrocytosis Moderate; Mean Platelet Volume 9.4; Monocytes # (A) 0.6 k/uL (0-1.0); Monocytes % (A) 7 %; Neutrophils # (A) 5.8 k/uL (1.3-7.7); Neutrophils % (A) 64 %; Platelet Count 205 k/uL (150-450); RDW 22.7 % (11.5-15.5); WBC 9.1 k/uL (3.8-10.6)
[2021-12-26 06:50] LABS: Calcium 8.1 mg/dL (8.4-10.2); Potassium 3.8 mmol/L (3.5-5.1)
[2021-12-26] MEDS: IPRATROPIUM-ALBUTEROL 3 ML NEB INHALATION SCH ×4 (07:32→19:40)
[2021-12-26] MEDS: SYMBICORT 160-4.5 MCG INHALER INHALATION SCH ×2 (07:32→19:40)
[2021-12-26] MEDS ORDERED: POTASSIUM CHLORIDE ER 20 MEQ TAB.ER PO SCH (08:00)
[2021-12-26] MEDS ORDERED: SODIUM CHLORIDE 0.9% 1,000 ML IV ONE (08:36)
--- NOTE | 2021-12-26 08:36 | XR ---
EXAMINATION TYPE: XR chest 1V portable DATE OF EXAM: 12/26/2021 COMPARISON: Chest x-ray dated 12/25/2021 HISTORY: Congestive heart failure TECHNIQUE: Single frontal view of the chest is obtained. FINDINGS: Pleural-parenchymal changes show similar appearance to prior exam. There is no evident pne umothorax or pleural effusion. Cardiac mediastinal silhouette is stable. Interstitium is mildly incre ased. There are overlying artifacts. IMPRESSION: Correlate for congestive heart failure, pneumonia, atelectasis or scarring
[2021-12-26] MEDS: HEPARIN SODIUM,PORCINE/PF 5,000 UNIT/0.5 ML SYRINGE SQ SCH ×2 (08:46→20:03)
[2021-12-26] MEDS: FAMOTIDINE 20 MG TAB PO SCH ×2 (08:47→20:02)
[2021-12-26] MEDS: ASPIRIN 81 MG PO SCH (08:47)
[2021-12-26] MEDS: ATORVASTATIN 40 MG TAB PO SCH (08:47)
--- NOTE | 2021-12-26 12:07 | P.PN ---
Subjective Progress Note Date: 12/26/21 This is a pleasant 46-year-old male patient with a history of Down syndrome, diastolic congestive heart failure, recurrent aspiration pneumonias, obstructive sleep apnea intolerant to CPAP, hyperlipidemia, gastroesophageal reflux disease. He follows with Dr. Quintanilla as his primary care provider. He was recently here for almost a month for multifactorial issues regarding shortness of breath secondary to diastolic congestive heart failure aspiration pneumonia and hypoventilation syndrome. He was discharged on 11/13/2021. He was brought back to the emergency room yesterday with increasing shortness of breath. X-ray showed progressive patchy perihilar and basilar infiltrates compared to 11/11/2021. CT angiogram revealed no evidence of pulmonary embolism. There is moderate pulmonary interstitial edema in the mid and lower lung colon. Previous echocardiogram revealed preserved left ventricular systolic function with ejection fraction 50-55%. Lower extremities negative for DVTs. White cou nt 11.7. Hemoglobin 14.8. INR 1.2. D-dimer 3.44. Sodium 134. Potassium 3.9. Chloride 87. Bicarb 42. BUN 18. Creatinine 0.61. Glucose 143. Troponins 0.40, 0.28, 0.25. ProBNP 3290. Urinalysis clean. Chavira virus by PCR not detected. Pro-calcitonin pending. He's been initiated on DuoNeb inhalations, Symbicort. Lasix 40 mg by mouth every 8 hours. Aldactone. Progress note dated 12/17/2021. 46-year-old male with history of down syndrome, diastolic CHF, recurrent aspiration pneumonia, sleep apnea, hyperlipidemia, and GERD. His primary care physician is Dr. Quintanilla. He was recently here for almost a month for shortness of breath, secondary to CHF. At that time, he was also thought to have aspiration pneumonia. He was finally discharged on 11/13/2021. He was brought back to the emergency room, 2 days ago, with increasing shortness of breath, and diffuse bilateral infiltrates. There was no pulmonary embolism on CT angiogram. Currently, the patient is on AIRVO, at 60 L/m with an FiO2 of 90%. He's not receiving any IV fluids. His nurse held his nitroglycerin this morning, because his blood pressure was a bit soft. Labs today include a white count of 7.2, hemoglobin 15.8, hematocrit 51.7, and a platelet count of 188,000. Sodium was 138, potassium 3.9, chloride 99, CO2 37, anion gap 12, BUN 13, creatinine 0.57. AST was 164 and ALT was 591. Troponins were 0.282 and 0.255. Urine was negative. Chest x-ray was consistent with cardiomegaly, and pulmonary vascular congestion/CHF. On 12/18/2021 patient seen in follow-up on selective care unit, he is currently on Airvo at 60 L and FiO2 of 92% and his pulse ox is greater than 97% and this can probably be weaned further down, he is awake and alert, oriented 3, breathing comfortably he is resting in bed watching TV. He is pleasant and cooperative. he remains on oral Lasix at 40 mg every 12 hours, he is sofia ntaining negative fluid balance of -625 mL over the last 24 hours. Chest x-ray findings were consistent with acute exacerbation of CHF with known diastolic dysfunction, his CTA chest was negative for evidence of pulmonary embolism. It did show moderate pulmonary interstitial edema and mid and the lower lung colon. Patient continues on nebulized bronchodilators, he remains on Symbicort. Patient has no significant edema in his bilateral lower legs. Dopplers of the lower extremities were limited due to patient's body habitus, but within the limitation of the study there was no sonographic findings of DVT in the lower extremities. Today's labs have been reviewed, his white blood cell, 7.2, hemoglobin is 15.8, sodium is 138, potassium 3.9, chloride is 89, CO2 is 37, BUN 13 creatinine 0.57. Patient tested negative for COVID-19, influenza A and B and RSV. On 12/19/2021 patient seen in follow-up on selective care unit, he remains on high flow oxygen, per Airvo with 55 L and FiO2 of 85% and his pulse ox is 88- 94%. Patient is sleepy this morning however she arouses to voice, he answers simple questions, he feels very fatigued. Nursing reports that the patient does not sleep well at night and she was up until 4:00 in the morning area. Has been extensively diuresed, his IV Lasix has been switched to oral Lasix 40 mg twice daily however he appears to be dehydrated on clinical exam. His oral intake is fair, his appetite is good other than this morning she only consumed 25% of his meal because of being tired. Lung sounds are positive for bibasilar crackles, no rhonchi or wheezes, no significant edema involving his bilateral lower extremities, today's chest x-ray has been reviewed showing lung volumes, patchy bibasilar atelectasis or scarring, cardiomegaly. Today's labs have been reviewed showing white blood cell count is 7.8, hemoglobin of 15.9, sodium is 136, potassium is 4.5, chloride is 90, CO2 is 43, B1 is 21, creatinine 0.7, his LFTs are improved, AST is now within normal limits at 37, ALT is 252, and alkaline phosphatase is 93, his pro-calcitonin level came back negative at 0.12. Patient was tested negative for COVID-19 2, tested negative for influenza A and B, and RSV. On 12/20/2021 patient seen in follow-up on selective care unit, he is awake and alert, in no acute distress, he continues on Airvo at 55 L and FiO2 of 85% is pulse ox is around 96%, breathing comfortably, lung sounds are diminished, clear no crackles, no rhonchi he continues on oral Lasix 40 mg once daily and he is in -1.5 L net fluid balance over the last 24 hours, he continues on Aldactone 12.5 mg daily, and yesterday we gave the patient 2 doses of oral Diamox 250 mg twice daily. Today's labs including electrolytes and renal profile are still pending, vital signs have been stable overnight, no fever or chills, occasional cough, no phlegm production. No complaints of chest discomfort. His yesterday's chest x- ray showed low lung volumes, no pneumothorax or pleural effusion. Patchy bilateral airspace disease. On 12/21/2021 patient seen in follow-up on selective care unit, he is awake and alert, in no acute distress, remains on Airvo at 50 L and FiO2 of 80%, and his pulse ox is 92%, he is breathing quite comfortably, he remains on once daily dose of oral Lasix 40 mg, remains on Aldactone, he is in negative 1.3 L net fluid balance over the last 24 hours. Today's chest x-ray showing patchy basilar densities, and stable cardiomegaly. Today's labs have been reviewed, sodium is 137, potassium is 4.3, chloride is 98, CO2 is 37, BUN is 20 creatinine 0.72. Patient denies any worsening dyspnea, cough or chest discomfort. On 12/22/2021 rapid response team was called in view of worsening hypoxia, patient has been on Airvo at 50 L and FiO2 of 80%, and he was noted to have O2 saturations in the low 80s, and subsequently his Airvo flow was increased to 60 L and FiO2 of 90% and patient was also placed on in the 100% nonrebreather mask and continued to have low O2 saturations at around 83%. Patient is awake, she still refuses to wear the BiPAP, he is crying, but he is responding appropriately, does not appear to be in any acute distress. He had been on oral dose Lasix once daily, on Aldactone and once daily dose of Diamox 250 mg. Patient has been maintaining negative fluid balance over the last several days, and the last 24 hours he is in -1044 mL negative net fluid balance, today's chest x-ray showing cardiomegaly, low lung volumes, no evident pneumothorax, tidal patchy attenuation possibly related to atelectasis or interstitial edema. Patient was given an additional dose of IV Lasix 40 mg this morning, Bose catheter has been inserted and patient has put out over a liter in urine output. Subsequently he was transferred to the intensive care unit for closer monitoring, he remains awake and alert, denies any acute distress, mildly conges alfred cough, no phlegm production. He is watching TV, he is comfortable. Denies any chest discomfort. His had no fever or chills overnight, he starting to diurese. He still refuses to wear BiPAP, with deep breathing has pulse ox comes up to 96%. He will be given an incentive spirometer. Today's labs are still pending. Patient has been on GI and DVT prophylaxis with oral Pepcid and heparin 5000 units every 12 hours subcu. His d-dimer was elevated on admission, but CTA chest was completed showing no evidence of pulmonary embolism, lower extremity Dopplers were negative for DVT in the limitation of the study. On 12/23/2021, I'm seeing the patient for a follow-up. The patient remains on Airvo 60 L an FiO2 of 90%. The patient is able to maintain a pulse ox of above 88%. No signs of any significant respiratory distress. No significant cough sputum production chest vessel wheezing. The patient is having some oral dryness. The input output balance has been negative in the order of 1044 mL over the past 24 hours. The patient remains on IV Lasix 40 mg IV push every 12 hours and the patient is also on Aldactone 12.5 mg by mouth daily and the patient is also on Diamox 250 mg IV every 12 hours. The electrolytes from today shows a sodium of 136, serum bicarbonate 40, BUN is 25 with creatinine 0.8. Potassium level is at 4.0. The white cell count is at 9.7 with a hemoglobin of 15.9 and a platelet count of 206. The chest x-ray from today shows interstitial edema/CHF and cardiomegaly. The blood gases obtained yesterday showed a pH of 7.33 with an episode of 82 and this is consistent with an acute on top of chronic hypercapnic respiratory failure. The patient's pO2 was at 59 and this was done while the patient on Airvo 60 L an FiO2 of 90%. 12/24/2021, I'm seeing the patient for a follow-up. He is comfortable. Upon doing some breathing exercises and deep breathing, the patient is able to bring up his oxygen saturation up to 97%. This further supports presence of significant amount of atelectasis in lung bases. Based on that, I made recommendations to set up this patient on a chair and be more aggressive with his pulmonary toileting. He remains on Airvo 60 L with an FiO2 of 90%. The patient is still on Lasix and Diamox. Overall fluid balance is -1.98 his over the past 24 hours. Serum bicarbonate 41. BUN is at 29 with a creatinine of 0.89. He is doing well. He denies having any respiratory distress. No significant cough sputum production chest that is so wheezing. He is tolerating his diet. No other issues otherwise for now. 12/25/2021, seeing the patient for a follow-up. Patient is doing well. Remains on Airvo 60 L with an FiO2 of 90%. Continues to undergo aggressive diuresis and aggressive pulmonary toileting. The patient was provided incentive spirometer. The patient was also most on a chair when he was able to breathe more co mfortably. Overall fluid balance has been negative at least 1 L over the past 24 hours and the patient is headed towards a negative fluid balance over the next 24 hours. His serum bicarbonate 40. BUN is at 29 with a creatinine of 0.89. Meanwhile, the patient is still on Lasix 40 mg IV every 12 hours. The patient is also receiving Diamox. The patient on Aldactone. Potassium level is at 3.6 and this being replaced per protocol. Oxidation is improved and the patient's pulse is 97% on above-mentioned Airvo setting. He is awake. He is alert. He is not showing any signs of any respiratory distress. 12/26/2021, I'm seeing the patient for a follow-up. The patient remains on Airvo 60 L with an FiO2 of 75%. The patient was being diuresed with IV Lasix and as of yesterday, the patient developed a diminished urine output. He also developed an acute kidney injury in the creatinine was up to 1.5 from today. Meanwhile, his net fluid balance is still negative around 2.2 L over the past 24 hours. Urine output slowed down initially and then it picked up again. His weight is down 219 kg. Based on all this, I decided to stop the diuretics for 24 hours. Give the patient 500 mL of bolus. He is still the same condition. His chest x-ray still showing pulmonary edema. No nausea. No vomiting. No diarrhea. No abdominal pain. No change in his mentation above and beyond his baseline. No other significant events otherwise for now.. He is using incentive spirometer. Was also doing aggressive pulmonary toileting on this patient. Objective - Vital Signs Vital signs: Vital Signs Temp 100.2 F H 12/26/21 08:00 Pulse 86 12/26/21 11:33 Resp 30 H 12/26/21 08:00 BP 113/58 12/26/21 09:00 Pulse Ox 96 12/26/21 09:00 Intake & Output 12/25/21 12/26/21 12/26/21 18:59 06:59 18:59 Intake Total 1450 1600 Output Total 1390 330 235 Balance 60 -330 1365 Weight 118.5 kg Intake: Intake, IV Titration 1000 Amount Sodium Chloride 0.9% 1, 1000 000 ml @ 999 mls/hr IV . Q1H1M ONE Rx#:[id number] Oral 1450 600 Output: Urine 1390 330 235 Other: Voiding Method Indwelling Catheter Indwelling Catheter Indwelling Catheter - Exam GENERAL EXAM: Awake and alert, 45-year-old male with typical features of Down syndrome on currently resting comfortably in bed, currently on Airvo at 60 L and FiO2 of 75%, breathing comfortably with a pulse ox of 89-92% HEAD: Normocephalic/atraumatic. EYES: Normal reaction of pupils, equal size. Conjunctiva pink, sclera white. NOSE: Clear with pink turbinates. THROAT: No erythema or exudates. NECK: No masses, no JVD, no thyroid enlargement, no adenopathy. CHEST: No chest wall deformity. Symmetrical expansion. LUNGS: Equal air entry with diminished breath sounds, bibasilar crackles CVS: Regular rate and rhythm, normal S1 and S2, no gallops, no murmurs, no rubs ABDOMEN: Soft, nontender. No hepatosplenomegaly, normal bowel sounds, no guarding or rigidity. EXTREMITIES: No clubbing, no lower extremity edema no cyanosis, 2+ pulses and upper and lower extremities. MUSCULOSKELETAL: Muscle strength and tone normal. SPINE: No scoliosis or deformity SKIN: No rashes CENTRAL NERVOUS SYSTEM: Awake and alert, No focal deficits, tone is normal in all 4 extremities. - Labs CBC & Chem 7: 12/26/21 06:09 12/26/21 06:09 Labs: Abnormal Lab Results - Last 24 Hours (Table) 12/26/21 12/26/21 Range/Units 06:09 06:09 MCHC 30.4 L (31.0-37.0) g/dL RDW 22.7 H (11.5-15.5) % Sodium 131 L (137-145) mmol/L Chloride 89 L (98-107) mmol/L Carbon Dioxide 39 H (22-30) mmol/L BUN 47 H (9-20) mg/dL Creatinine 1.53 H (0.66-1.25) mg/dL Glucose 128 H (74-99) mg/dL Calcium 8.1 L (8.4-10.2) mg/dL Assessment and Plan Plan: #1. Acute hypoxic respiratory failure secondary to acute exacerbation of diastolic CHF. COVID-19 PCR, influenza A and B and RSV were negative. On 11/29 patient was noted to have worsening hypoxia, rapid response team was called, patient is currently on Airvo, 60 L FiO2 of 75%, and the chest x-rays consistent with CHF/volume overload and the patient is on IV Lasix. The patient is a negative fluid balance. He has developed some metabolic alkalosis and the patient was also started on Diamox. Blood gases was noted that shows also a component of an acute on top of chronic hypoxic and hypercapnic respiratory failure. The patient is a negative fluid balance. I believe the patient's respiratory failure is multifactorial, including hypoventilation, atelectasis, interstitial edema and fluid. The patient was responding well to diuresis. The patient was a negative fluid balance. He developed an acute kidney injury. Diuretics will placed on hold for now. FiO2 can be further weaned down. #2. Recent hospitalization for acute exacerbation of CHF with the possibility of aspiration related pneumonia and acute lung injury/ARDS is thought to be less likely. #3. Elevated troponin levels, likely related to acute CHF, please refer to cardiology consultation #4. Obstructive sleep apnea intolerant to CPAP #5. Morbid obesity with BMI 43.7 kg/m #6. History of Down syndrome #7. History of hyperlipidemia #8. History of obstructive sleep apnea, intolerant to CPAP #9. Obesity hypoventilation syndrome #10. Elevated d-dimer, without CT evidence of pulmonary embolism or DVT on lower extremity Dopplers #11 acute kidney injury in the creatinine is up to 1.5, likely secondary diuresis. Plan: Hold diuretics for 24 hours Give the patient a bolus of 500 mL's of normal saline Monitor renal function Repeat another set of electrolytes is around 4:00 PM today Change Airvo to 40 L with an FiO2 of 60% Maintenance saturation above 90% Continue using incentive spirometer Sit up this patient on a chair Provide incentive spirometer We'll continue to follow closely in the Intensive Care unit,
--- NOTE | 2021-12-26 22:48 | P.PN ---
Subjective Progress Note Date: 12/24/21 This is a pleasant 46 years old male with past medical history of Asthma, GERD/Reflux, Hyperlipidemia, Memory Impairment, Down syndrome/IQ of about 74, chronic feet issue d/t gout, SHARRI but pt unable to tolerate CPAP Patient is poor historian, sitting in bed eating his breakfast with no difficulty on high flow nasal cannula, he can tell me he is in the hospital but he could not recognize which hospital, the date or the name of the president. When I ask her most recently came to the hospital he points to his right forearm block stating it is because of this. However patient states that his breathing is better now and he denies chest pain or abdominal pain or any other complaints He denies smoking, alcohol or illicit drugs. Patient is hypoxic on the presentation, with oxygen saturating 88% on 4 L and 82% on 50 L, currently on high flow nasal cannula 55%. Afebrile, tachypneic. Has leukocytosis of 11.7, rest of CBC is unremarkable. INR is 1.2 D-dimer is 3.4. BMP is unremarkable, liver enzymes significantly elevated with AST 642 and ALT 1133. Troponin is elevated at 0.4 and 0.2. Urine analysis is not suspicious of infection. Coronal versus nondetected. EKG: Normal sinus rhythm at [address]-T abnormality. Patient was started on aspirin 325 mg, IV Lasix and then oral Lasix 40 mg every 8 hours, bronchodilator. With cardiology team consulted Echocardiogram done on 09/2021 showing preserved ejection fraction of 50-55%. 12/17/2021 Can awake but sleepy, he follows commands. He still slightly tachypneic. He remains on high flow oxygen via nasal cannula at 60 L/m. Chest x-ray showed slight increase in the mid and lower lung zones Pro-calcitonin only mildly elevated 0.12, proBNP is normal which goes against CHF at 323 We are going to recheck cold, influenza and RSV 12/18/2021 Patient is awaken although is sleeping a lot. He looks pleasant and answer questions however he looks confused for example when asking is this year house he said yes. History of on airvo Quiring 60 L/M with 90% oxygen. He is has proximal area with unknown reason. This Procalcitonin and proBNP are both low level. CTA is negative for PE. There is no evidence of wheezing. His CTA showing bilateral infiltrates and obesity may contribute to factor. Pulmonary and cardiology team on the case Currently he is on oral Lasix 40 mg twice a day, aspirin 325 mg and subcu heparin Viral test for Covid, influenza and RSV came back negative 12/19/2021 Sleepy and drowsy most of the time, he is tachypneic, he still requiring oxygen supplementation at 55 L with saturation of 88%. ABG today showing compensated hypercapnia with pH normal at 7.3 and pCO2 elevated 77. PO2 is 74. ABG bicarb is 45 which is elevated. Also BMP is showing evidence of contraction alkalosis with elevated carbon dioxide 43 and elevated BUN/creatinine ratio 21/0.77. Lasix dose will be held today. Pulmonary and cardiology team on the case. Chest x-ray today showing pneumonia versus fibrotic changes/scar We will repeat pro-calcitonin, patient currently is not on antibiotic, he is on by mouth Lasix 40 mg daily and a stent of twice a day 12/20/2021 patient remains on oxygen, history of on airvo at 55 L/m with 88% His pro-calcitonin is 0.12, we going to repeat , His ABG showed normal pH 7.3, high pCO2 77 and low PaO2 74. He remains on diuretic, pulmonary cartilage team on the case 12/21/2021 Patient is more awake today he is alert still confused he follow commands with simple instructions only. It looks like he has some elements of dementia and memory impairment. Remains on airvo with 50 L and FiO2 of 83% His pro-calcitonin with repeated is normal 0.08. Chest x-ray showing atelectasis versus pneumonia Remains on Acetazolamide, oral Lasix once daily at 40 mg. And aspirin 325 mg 12/22/2021 Patient was transferred to the ICU for worsening hypoxia, he is awake and alert, follows simple commands but it looks almost at baseline. He does not talk much. He does not look in respiratory distress. His oxygen requirements increased back to 60 L/m at 90%. he is saturating at 94% His chest x-ray showing pneumonia versus scarring versus atelectasis His pH is 7.3 pCO2 82 and pO2 is 59 which is low. ProBNP is 191 Patient is refusing to wear BiPAP His Lasix to switch from oral and IV. Continued on aspirin 325 mg and acetazolamide. 12/23/2021 Patient is currently in the MICU. Still requiring high flow oxygen Airvo 60 L with FiO2 90%. Patient is awake and alert.follows simple commands but it looks almost at baseline. Currently being continued IV Lasix 40 mg twice daily and is also on spironolactone and Diamox. Chest x-ray showed correlate for interstitial edema, pneumonia, CHF not excluded versus atelectasis or scarring. Cardiomegaly. Laboratory data showed WBC 9.7 hemoglobin 15.9 and platelets 206 sodium 136 potassium 4.0 chloride 91 bicarb is 40 BUN 25 and creatinine 0.84 and albumin 3.2. Pulmonary and cardiology is on board. 12/24/2021 Patient is currently sitting in the bed. Awake and alert. Denied any complaints of chest pain or worsening shortness of breath. Remains on high flow oxygen with FiO2 90%. Continued on Lasix and Diamox and does have negative balance over the last 24 hours. Laboratory data showed WBC 9.0 hemoglobin 16.3 and platelets 213 sodium 132 potassium 3.9 chloride 98 bicarb is 41 BUN 29 and creatinine 0.89 and albumin 3.2. Pulmonary is on board. Patient has been afebrile. Tolerating oral diet no complaints of dizziness or lightheadedness. No diarrhea. No abdominal pain. Current medications reviewed. Objective - Vital Signs Vital signs: Vital Signs Temp 99.6 F 12/24/21 12:00 Pulse 70 12/24/21 15:00 Resp 30 H 12/24/21 15:00 BP 90/43 12/24/21 15:00 Pulse Ox 90 L 12/24/21 15:00 Intake & Output 12/23/21 12/24/21 12/24/21 18:59 06:59 18:59 Intake Total 500 150 840 Output Total 740 1075 1245 Balance -240 -925 -405 Weight 118.8 kg Intake: Oral 500 150 600 Tube Feeding 240 Output: Urine 740 1075 1245 Other: Voiding Method Indwelling Catheter Indwelling Catheter Indwelling Catheter # Voids 0 # Bowel Movements 0 - Exam - Exam -GENERAL: The patient is alert and oriented x3, drowsy, not in any acute distress. Obese, generally tired HEENT: Pupils are round and equally reacting to light. EOMI. No scleral icterus. No conjunctival pallor. Normocephalic, atraumatic. No pharyngeal erythema. No thyromegaly. CARDIOVASCULAR: S1 and S2 present. No murmurs, rubs, or gallops. -PULMONARY: Chest is clear to auscultation, no wheezing or crackles. Mildly tachypneic ABDOMEN: Soft, nontender, nondistended, normoactive bowel sounds. No palpable organomegaly. MUSCULOSKELETAL: No joint swelling or deformity. EXTREMITIES: No cyanosis, clubbing, or pedal edema. NEUROLOGICAL: Gross neurological examination did not reveal any focal deficits. SKIN: No rashes. no petechiae. - Labs CBC & Chem 7: 12/26/21 06:09 12/26/21 06:09 Labs: Abnormal Lab Results - Last 24 Hours (Table) 12/24/21 12/24/21 Range/Units 06:00 06:00 Hct 53.9 H (39.0-53.0) % MCV 100.8 H (80.0-100.0) fL MCHC 30.2 L (31.0-37.0) g/dL RDW 23.5 H (11.5-15.5) % Macrocytosis Marked A Sodium 132 L (137-145) mmol/L Chloride 90 L (98-107) mmol/L Carbon Dioxide 41 H* (22-30) mmol/L BUN 29 H (9-20) mg/dL ALT 52 H (4-49) U/L Albumin 3.2 L (3.5-5.0) g/dL Assessment and Plan Assessment: Acute hypoxic respiratory failure secondary to diastolic CHF exacerbation. Requiring high flow oxygen via Airvo. Patient is refusing to wear BiPAP. Elevated troponin likely demand ischemia elevated d-dimer with no evidence of PE or DVT Elevated liver enzymes , improving CTA of the chest showing no pulmonary embolism, moderate pulmonary interstitial edema in the mid and lower lung colon Memory problem most likely related to yearly Alzheimer's dementia, given his history of Down syndrome. Down syndrome History of asthma History of GERD History of memory impairment History of obstructive sleep apnea, not on CPAP, cannot tolerate. History of gout Plan: This is a pleasant 46 years old male with Down syndrome who presents with acute CHF Continue with Lasix 40 mg IV twice a day, aldactone and added diamox. Continue with aspirin Labs and medication were reviewed..Monitor lytes and vitals. DVT and GI prophylaxis. DVT prophylaxis: Subcutaneous heparin GI Prophylaxis: Pepcid PT/OT: Pending Prognosis is guarded Time with Patient: Greater than 30
--- NOTE | 2021-12-26 22:50 | P.PN ---
Subjective Progress Note Date: 12/25/21 This is a pleasant 46 years old male with past medical history of Asthma, GERD/Reflux, Hyperlipidemia, Memory Impairment, Down syndrome/IQ of about 74, chronic feet issue d/t gout, SHARRI but pt unable to tolerate CPAP Patient is poor historian, sitting in bed eating his breakfast with no difficulty on high flow nasal cannula, he can tell me he is in the hospital but he could not recognize which hospital, the date or the name of the president. When I ask her most recently came to the hospital he points to his right forearm block stating it is because of this. However patient states that his breathing is better now and he denies chest pain or abdominal pain or any other complaints He denies smoking, alcohol or illicit drugs. Patient is hypoxic on the presentation, with oxygen saturating 88% on 4 L and 82% on 50 L, currently on high flow nasal cannula 55%. Afebrile, tachypneic. Has leukocytosis of 11.7, rest of CBC is unremarkable. INR is 1.2 D-dimer is 3.4. BMP is unremarkable, liver enzymes significantly elevated with AST 642 and ALT 1133. Troponin is elevated at 0.4 and 0.2. Urine analysis is not suspicious of infection. Coronal versus nondetected. EKG: Normal sinus rhythm at [address]-T abnormality. Patient was started on aspirin 325 mg, IV Lasix and then oral Lasix 40 mg every 8 hours, bronchodilator. With cardiology team consulted Echocardiogram done on 09/2021 showing preserved ejection fraction of 50-55%. 12/17/2021 Can awake but sleepy, he follows commands. He still slightly tachypneic. He remains on high flow oxygen via nasal cannula at 60 L/m. Chest x-ray showed slight increase in the mid and lower lung zones Pro-calcitonin only mildly elevated 0.12, proBNP is normal which goes against CHF at 323 We are going to recheck cold, influenza and RSV 12/18/2021 Patient is awaken although is sleeping a lot. He looks pleasant and answer questions however he looks confused for example when asking is this year house he said yes. History of on airvo Quiring 60 L/M with 90% oxygen. He is has proximal area with unknown reason. This Procalcitonin and proBNP are both low level. CTA is negative for PE. There is no evidence of wheezing. His CTA showing bilateral infiltrates and obesity may contribute to factor. Pulmonary and cardiology team on the case Currently he is on oral Lasix 40 mg twice a day, aspirin 325 mg and subcu heparin Viral test for Covid, influenza and RSV came back negative 12/19/2021 Sleepy and drowsy most of the time, he is tachypneic, he still requiring oxygen supplementation at 55 L with saturation of 88%. ABG today showing compensated hypercapnia with pH normal at 7.3 and pCO2 elevated 77. PO2 is 74. ABG bicarb is 45 which is elevated. Also BMP is showing evidence of contraction alkalosis with elevated carbon dioxide 43 and elevated BUN/creatinine ratio 21/0.77. Lasix dose will be held today. Pulmonary and cardiology team on the case. Chest x-ray today showing pneumonia versus fibrotic changes/scar We will repeat pro-calcitonin, patient currently is not on antibiotic, he is on by mouth Lasix 40 mg daily and a stent of twice a day 12/20/2021 patient remains on oxygen, history of on airvo at 55 L/m with 88% His pro-calcitonin is 0.12, we going to repeat , His ABG showed normal pH 7.3, high pCO2 77 and low PaO2 74. He remains on diuretic, pulmonary cartilage team on the case 12/21/2021 Patient is more awake today he is alert still confused he follow commands with simple instructions only. It looks like he has some elements of dementia and memory impairment. Remains on airvo with 50 L and FiO2 of 83% His pro-calcitonin with repeated is normal 0.08. Chest x-ray showing atelectasis versus pneumonia Remains on Acetazolamide, oral Lasix once daily at 40 mg. And aspirin 325 mg 12/22/2021 Patient was transferred to the ICU for worsening hypoxia, he is awake and alert, follows simple commands but it looks almost at baseline. He does not talk much. He does not look in respiratory distress. His oxygen requirements increased back to 60 L/m at 90%. he is saturating at 94% His chest x-ray showing pneumonia versus scarring versus atelectasis His pH is 7.3 pCO2 82 and pO2 is 59 which is low. ProBNP is 191 Patient is refusing to wear BiPAP His Lasix to switch from oral and IV. Continued on aspirin 325 mg and acetazolamide. 12/23/2021 Patient is currently in the MICU. Still requiring high flow oxygen Airvo 60 L with FiO2 90%. Patient is awake and alert.follows simple commands but it looks almost at baseline. Currently being continued IV Lasix 40 mg twice daily and is also on spironolactone and Diamox. Chest x-ray showed correlate for interstitial edema, pneumonia, CHF not excluded versus atelectasis or scarring. Cardiomegaly. Laboratory data showed WBC 9.7 hemoglobin 15.9 and platelets 206 sodium 136 potassium 4.0 chloride 91 bicarb is 40 BUN 25 and creatinine 0.84 and albumin 3.2. Pulmonary and cardiology is on board. 12/24/2021 Patient is currently sitting in the bed. Awake and alert. Denied any complaints of chest pain or worsening shortness of breath. Remains on high flow oxygen with FiO2 90%. Continued on Lasix and Diamox and does have negative balance over the last 24 hours. Laboratory data showed WBC 9.0 hemoglobin 16.3 and platelets 213 sodium 132 potassium 3.9 chloride 98 bicarb is 41 BUN 29 and creatinine 0.89 and albumin 3.2. Pulmonary is on board. Patient has been afebrile. Tolerating oral diet no complaints of dizziness or lightheadedness. No diarrhea. No abdominal pain. 12/25/2021 Patient remains in the MICU. Still requiring high flow oxygen at 60 L and FiO2 90%. Patient is on IV Lasix, Aldactone and Diamox.. Does have negative balance. No complaints of chest pain or worsening shortness of breath. No cough or sputum production. Patient has been afebrile. Tolerating oral diet. No headache or dizziness or lightheadedness. Laboratory data showed WBC 6.5 hemoglobin 15.6 and platelets 209 sodium 134 potassium 3.6 chloride 92 bicarb is 40 BUN 29 and creatinine 0.83 Current medications reviewed. Objective - Vital Signs Vital signs: Vital Signs Temp 99.5 F 12/25/21 08:00 Pulse 72 12/25/21 11:00 Resp 30 H 12/25/21 11:00 BP 105/70 12/25/21 11:00 Pulse Ox 97 12/25/21 11:00 Intake & Output 12/24/21 12/25/21 12/25/21 18:59 06:59 18:59 Intake Total 840 250 650 Output Total 1440 1900 1200 Balance -600 -1650 -550 Weight 122.2 kg Intake: Oral 600 250 650 Tube Feeding 240 Output: Urine 1440 1900 1200 Other: Voiding Method Indwelling Catheter Indwelling Catheter Indwelling Catheter - Exam - Exam -GENERAL: The patient is alert and oriented x3, not in any acute distress. Obese, generally tired, Mentally challenged. HEENT: Pupils are round and equally reacting to light. EOMI. No scleral icterus. No conjunctival pallor. Normocephalic, atraumatic. No pharyngeal erythema. No thyromegaly. CARDIOVASCULAR: S1 and S2 present. No murmurs, rubs, or gallops. -PULMONARY: Chest is clear to auscultation, no wheezing or crackles. Mildly t achypneic ABDOMEN: Soft, nontender, nondistended, normoactive bowel sounds. No palpable organomegaly. MUSCULOSKELETAL: No joint swelling or deformity. EXTREMITIES: No cyanosis, clubbing, or pedal edema. NEUROLOGICAL: Gross neurological examination did not reveal any focal deficits. SKIN: No rashes. no petechiae. - Labs CBC & Chem 7: 12/26/21 06:09 12/26/21 06:09 Labs: Abnormal Lab Results - Last 24 Hours (Table) 12/25/21 12/25/21 Range/Units 06:36 06:36 MCV 100.7 H (80.0-100.0) fL MCHC 30.1 L (31.0-37.0) g/dL RDW 23.3 H (11.5-15.5) % Macrocytosis Marked A Sodium 134 L (137-145) mmol/L Chloride 92 L (98-107) mmol/L Carbon Dioxide 40 H (22-30) mmol/L BUN 29 H (9-20) mg/dL Glucose 170 H (74-99) mg/dL Calcium 8.2 L (8.4-10.2) mg/dL Albumin 3.0 L (3.5-5.0) g/dL Assessment and Plan Assessment: Acute hypoxic respiratory failure secondary to diastolic CHF exacerbation. Requiring high flow oxygen via Airvo. Patient is refusing to wear BiPAP. Elevated troponin likely demand ischemia elevated d-dimer with no evidence of PE or DVT Elevated liver enzymes , improving CTA of the chest showing no pulmonary embolism, moderate pulmonary interstitial edema in the mid and lower lung colon Memory problem most likely related to yearly Alzheimer's dementia, given his history of Down syndrome. Down syndrome History of asthma History of GERD History of memory impairment History of obstructive sleep apnea, not on CPAP, cannot tolerate. History of gout Plan: This is a pleasant 46 years old male with Down syndrome who presents with acute CHF Continue with Lasix 40 mg IV twice a day, aldactone and added diamox. Continue with aspirin Labs and medication were reviewed..Monitor lytes and vitals. DVT and GI prophylaxis. DVT prophylaxis: Subcutaneous heparin GI Prophylaxis: Pepcid PT/OT: Pending Prognosis is guarded Time with Patient: Greater than 30
--- NOTE | 2021-12-26 22:59 | P.PN ---
Subjective Progress Note Date: 12/26/21 This is a pleasant 46 years old male with past medical history of Asthma, GERD/Reflux, Hyperlipidemia, Memory Impairment, Down syndrome/IQ of about 74, chronic feet issue d/t gout, SHARRI but pt unable to tolerate CPAP Patient is poor historian, sitting in bed eating his breakfast with no difficulty on high flow nasal cannula, he can tell me he is in the hospital but he could not recognize which hospital, the date or the name of the president. When I ask her most recently came to the hospital he points to his right forearm block stating it is because of this. However patient states that his breathing is better now and he denies chest pain or abdominal pain or any other complaints He denies smoking, alcohol or illicit drugs. Patient is hypoxic on the presentation, with oxygen saturating 88% on 4 L and 82% on 50 L, currently on high flow nasal cannula 55%. Afebrile, tachypneic. Has leukocytosis of 11.7, rest of CBC is unremarkable. INR is 1.2 D-dimer is 3.4. BMP is unremarkable, liver enzymes significantly elevated with AST 642 and ALT 1133. Troponin is elevated at 0.4 and 0.2. Urine analysis is not suspicious of infection. Coronal versus nondetected. EKG: Normal sinus rhythm at [address]-T abnormality. Patient was started on aspirin 325 mg, IV Lasix and then oral Lasix 40 mg every 8 hours, bronchodilator. With cardiology team consulted Echocardiogram done on 09/2021 showing preserved ejection fraction of 50-55%. 12/17/2021 Can awake but sleepy, he follows commands. He still slightly tachypneic. He remains on high flow oxygen via nasal cannula at 60 L/m. Chest x-ray showed slight increase in the mid and lower lung zones Pro-calcitonin only mildly elevated 0.12, proBNP is normal which goes against CHF at 323 We are going to recheck cold, influenza and RSV 12/18/2021 Patient is awaken although is sleeping a lot. He looks pleasant and answer questions however he looks confused for example when asking is this year house he said yes. History of on airvo Quiring 60 L/M with 90% oxygen. He is has proximal area with unknown reason. This Procalcitonin and proBNP are both low level. CTA is negative for PE. There is no evidence of wheezing. His CTA showing bilateral infiltrates and obesity may contribute to factor. Pulmonary and cardiology team on the case Currently he is on oral Lasix 40 mg twice a day, aspirin 325 mg and subcu heparin Viral test for Covid, influenza and RSV came back negative 12/19/2021 Sleepy and drowsy most of the time, he is tachypneic, he still requiring oxygen supplementation at 55 L with saturation of 88%. ABG today showing compensated hypercapnia with pH normal at 7.3 and pCO2 elevated 77. PO2 is 74. ABG bicarb is 45 which is elevated. Also BMP is showing evidence of contraction alkalosis with elevated carbon dioxide 43 and elevated BUN/creatinine ratio 21/0.77. Lasix dose will be held today. Pulmonary and cardiology team on the case. Chest x-ray today showing pneumonia versus fibrotic changes/scar We will repeat pro-calcitonin, patient currently is not on antibiotic, he is on by mouth Lasix 40 mg daily and a stent of twice a day 12/20/2021 patient remains on oxygen, history of on airvo at 55 L/m with 88% His pro-calcitonin is 0.12, we going to repeat , His ABG showed normal pH 7.3, high pCO2 77 and low PaO2 74. He remains on diuretic, pulmonary cartilage team on the case 12/21/2021 Patient is more awake today he is alert still confused he follow commands with simple instructions only. It looks like he has some elements of dementia and memory impairment. Remains on airvo with 50 L and FiO2 of 83% His pro-calcitonin with repeated is normal 0.08. Chest x-ray showing atelectasis versus pneumonia Remains on Acetazolamide, oral Lasix once daily at 40 mg. And aspirin 325 mg 12/22/2021 Patient was transferred to the ICU for worsening hypoxia, he is awake and alert, follows simple commands but it looks almost at baseline. He does not talk much. He does not look in respiratory distress. His oxygen requirements increased back to 60 L/m at 90%. he is saturating at 94% His chest x-ray showing pneumonia versus scarring versus atelectasis His pH is 7.3 pCO2 82 and pO2 is 59 which is low. ProBNP is 191 Patient is refusing to wear BiPAP His Lasix to switch from oral and IV. Continued on aspirin 325 mg and acetazolamide. 12/23/2021 Patient is currently in the MICU. Still requiring high flow oxygen Airvo 60 L with FiO2 90%. Patient is awake and alert.follows simple commands but it looks almost at baseline. Currently being continued IV Lasix 40 mg twice daily and is also on spironolactone and Diamox. Chest x-ray showed correlate for interstitial edema, pneumonia, CHF not excluded versus atelectasis or scarring. Cardiomegaly. Laboratory data showed WBC 9.7 hemoglobin 15.9 and platelets 206 sodium 136 potassium 4.0 chloride 91 bicarb is 40 BUN 25 and creatinine 0.84 and albumin 3.2. Pulmonary and cardiology is on board. 12/24/2021 Patient is currently sitting in the bed. Awake and alert. Denied any complaints of chest pain or worsening shortness of breath. Remains on high flow oxygen with FiO2 90%. Continued on Lasix and Diamox and does have negative balance over the last 24 hours. Laboratory data showed WBC 9.0 hemoglobin 16.3 and platelets 213 sodium 132 potassium 3.9 chloride 98 bicarb is 41 BUN 29 and creatinine 0.89 and albumin 3.2. Pulmonary is on board. Patient has been afebrile. Tolerating oral diet no complaints of dizziness or lightheadedness. No diarrhea. No abdominal pain. 12/25/2021 Patient remains in the MICU. Still requiring high flow oxygen at 60 L and FiO2 90%. Patient is on IV Lasix, Aldactone and Diamox.. Does have negative balance. No complaints of chest pain or worsening shortness of breath. No cough or sputum production. Patient has been afebrile. Tolerating oral diet. No headache or dizziness or lightheadedness. Laboratory data showed WBC 6.5 hemoglobin 15.6 and platelets 209 sodium 134 potassium 3.6 chloride 92 bicarb is 40 BUN 29 and creatinine 0.83 12/26/2021 Patient is currently sitting in the bed awake alert and oriented. Remains in the MICU. Still requiring high flow oxygen 40 L at FiO2 60%. Patient does have negative balance. Chest x-ray showed correlate for congestive heart failure, pneumonia atelectasis or scarring. Laboratory data showed creatinine level increased to 1.53 and BUN 47. Diuretics on hold currently due to worsening renal function. Laboratory data showed sodium 131 potassium 3.8 and chloride 89 bicarb is 39 and WBC 9.1 hemoglobin 15.5 and platelets 205. Patient has been afebrile. No nausea vomiting abdominal pain or diarrhea. Tolerating oral diet. Current medications reviewed. Objective - Vital Signs Vital signs: Vital Signs Temp 100.2 F H 12/26/21 08:00 Pulse 78 12/26/21 11:33 Resp 13 12/26/21 12:00 BP 109/50 12/26/21 12:00 Pulse Ox 95 12/26/21 12:00 Intake & Output 12/25/21 12/26/21 12/26/21 18:59 06:59 18:59 Intake Total 1450 1600 Output Total 1390 330 735 Balance 60 -330 865 Weight 118.5 kg Intake: Intake, IV Titration 1000 Amount Sodium Chloride 0.9% 1, 1000 000 ml @ 999 mls/hr IV . Q1H1M ONE Rx#:[id number] Oral 1450 600 Output: Urine 1390 330 735 Other: Voiding Method Indwelling Catheter Indwelling Catheter Indwelling Catheter - Exam - Exam -GENERAL: The patient is alert and oriented x3, not in any acute distress. Obese, generally tired, Mentally challenged. HEENT: Pupils are round and equally reacting to light. EOMI. No scleral icterus. No conjunctival pallor. Normocephalic, atraumatic. No pharyngeal erythema. No thyromegaly. CARDIOVASCULAR: S1 and S2 present. No murmurs, rubs, or gallops. -PULMONARY: Chest is clear to auscultation, no wheezing or crackles. Mildly tachypneic ABDOMEN: Soft, nontender, nondistended, normoactive bowel sounds. No palpable organomegaly. MUSCULOSKELETAL: No joint swelling or deformity. EXTREMITIES: No cyanosis, clubbing, or pedal edema. NEUROLOGICAL: Gross neurological examination did not reveal any focal deficits. SKIN: No rashes. no petechiae. - Labs CBC & Chem 7: 12/26/21 06:09 12/26/21 06:09 Labs: Abnormal Lab Results - Last 24 Hours (Table) 12/26/21 12/26/21 Range/Units 06:09 06:09 MCHC 30.4 L (31.0-37.0) g/dL RDW 22.7 H (11.5-15.5) % Sodium 131 L (137-145) mmol/L Chloride 89 L (98-107) mmol/L Carbon Dioxide 39 H (22-30) mmol/L BUN 47 H (9-20) mg/dL Creatinine 1.53 H (0.66-1.25) mg/dL Glucose 128 H (74-99) mg/dL Calcium 8.1 L (8.4-10.2) mg/dL Assessment and Plan Assessment: Acute hypoxic respiratory failure secondary to diastolic CHF exacerbation. Requiring high flow oxygen via Airvo. Patient is refusing to wear BiPAP. Acute kidney injury likely prerenal due to diuretics. Elevated troponin likely demand ischemia elevated d-dimer with no evidence of PE or DVT Elevated liver enzymes , improving CTA of the chest showing no pulmonary embolism, moderate pulmonary interstitial edema in the mid and lower lung colon Memory problem most likely related to yearly Alzheimer's dementia, given his history of Down syndrome. Down syndrome History of asthma History of GERD History of memory impairment History of obstructive sleep apnea, not on CPAP, cannot tolerate. History of gout Plan: This is a pleasant 46 years old male with Down syndrome who presents with acute CHF hold Lasix 40 mg IV twice a day, aldactone and diamox.Monitor renal function. Continue with aspirin Labs and medication were reviewed..Monitor lytes and vitals. DVT and GI prophylaxis. DVT prophylaxis: Subcutaneous heparin GI Prophylaxis: Pepcid PT/OT: Pending Prognosis is guarded Time with Patient: Greater than 30
[2021-12-27 05:58] LABS: Anisocytosis Moderate; HGB 14.8 gm/dL (13.0-17.5); Hypochromasia Marked; MCH 30.2 pg (25.0-35.0); MCHC 30.2 g/dL (31.0-37.0); MCV 100.2 fL (80.0-100.0); Macrocytosis Marked; Mean Platelet Volume 9.4; Platelet Count 203 k/uL (150-450); RBC 4.89 m/uL (4.30-5.90); RDW 22.8 % (11.5-15.5); WBC 8.6 k/uL (3.8-10.6)
[2021-12-27 06:06] LABS: African American GFR (CKD) >90 (>60 ml/min/1.73 sqM); Anion Gap 2 mmol/L; Blood Urea Nitrogen 49 mg/dL (9-20); Calcium 8.2 mg/dL (8.4-10.2); Carbon Dioxide 35 mmol/L (22-30); Chloride 96 mmol/L (98-107); Glucose 115 mg/dL (74-99); Non-African American GFR(CKD) >90 (>60 ml/min/1.73 sqM); Potassium 4.1 mmol/L (3.5-5.1); Sodium 133 mmol/L (137-145)
[2021-12-27] MEDS: ASPIRIN 81 MG PO SCH (07:55)
[2021-12-27] MEDS: ATORVASTATIN 40 MG TAB PO SCH (07:55)
[2021-12-27] MEDS: HEPARIN SODIUM,PORCINE/PF 5,000 UNIT/0.5 ML SYRINGE SQ SCH ×2 (07:55→20:47)
[2021-12-27] MEDS: FAMOTIDINE 20 MG TAB PO SCH ×2 (07:55→20:47)
[2021-12-27] MEDS: SYMBICORT 160-4.5 MCG INHALER INHALATION SCH ×3 (08:01→20:27)
[2021-12-27] MEDS: IPRATROPIUM-ALBUTEROL 3 ML NEB INHALATION SCH ×4 (08:01→20:14)
--- NOTE | 2021-12-27 08:09 | XR ---
EXAMINATION TYPE: XR chest 1V portable DATE OF EXAM: 12/27/2021 COMPARISON: Chest x-ray 12/26/2021 HISTORY: Pulmonary edema TECHNIQUE: Single frontal view of the chest is obtained. FINDINGS: Patchy density persists at the lung bases. Cardiac mediastinal silhouette is stable. No ev ident pneumothorax or pleural effusion. There are overlying artifacts. IMPRESSION: Correlate for basilar atelectasis versus pneumonia or edema. There may be some slight in terval improvement in aeration, volume status.
[2021-12-27] MEDS: FUROSEMIDE 10 MG/ML 4 ML VIAL IV SCH (10:01)
--- NOTE | 2021-12-27 11:57 | P.PN ---
Subjective Progress Note Date: 12/27/21 This is a pleasant 46-year-old male patient with a history of Down syndrome, diastolic congestive heart failure, recurrent aspiration pneumonias, obstructive sleep apnea intolerant to CPAP, hyperlipidemia, gastroesophageal reflux disease. He follows with Dr. Quintanilla as his primary care provider. He was recently here for almost a month for multifactorial issues regarding shortness of breath secondary to diastolic congestive heart failure aspiration pneumonia and hypoventilation syndrome. He was discharged on 11/13/2021. He was brought back to the emergency room yesterday with increasing shortness of breath. X-ray showed progressive patchy perihilar and basilar infiltrates compared to 11/11/2021. CT angiogram revealed no evidence of pulmonary embolism. There is moderate pulmonary interstitial edema in the mid and lower lung colon. Previous echocardiogram revealed preserved left ventricular systolic function with ejection fraction 50-55%. Lower extremities negative for DVTs. White cou nt 11.7. Hemoglobin 14.8. INR 1.2. D-dimer 3.44. Sodium 134. Potassium 3.9. Chloride 87. Bicarb 42. BUN 18. Creatinine 0.61. Glucose 143. Troponins 0.40, 0.28, 0.25. ProBNP 3290. Urinalysis clean. Chavira virus by PCR not detected. Pro-calcitonin pending. He's been initiated on DuoNeb inhalations, Symbicort. Lasix 40 mg by mouth every 8 hours. Aldactone. Progress note dated 12/17/2021. 46-year-old male with history of down syndrome, diastolic CHF, recurrent aspiration pneumonia, sleep apnea, hyperlipidemia, and GERD. His primary care physician is Dr. Qiuntanilla. He was recently here for almost a month for shortness of breath, secondary to CHF. At that time, he was also thought to have aspiration pneumonia. He was finally discharged on 11/13/2021. He was brought back to the emergency room, 2 days ago, with increasing shortness of breath, and diffuse bilateral infiltrates. There was no pulmonary embolism on CT angiogram. Currently, the patient is on AIRVO, at 60 L/m with an FiO2 of 90%. He's not receiving any IV fluids. His nurse held his nitroglycerin this morning, because his blood pressure was a bit soft. Labs today include a white count of 7.2, hemoglobin 15.8, hematocrit 51.7, and a platelet count of 188,000. Sodium was 138, potassium 3.9, chloride 99, CO2 37, anion gap 12, BUN 13, creatinine 0.57. AST was 164 and ALT was 591. Troponins were 0.282 and 0.255. Urine was negative. Chest x-ray was consistent with cardiomegaly, and pulmonary vascular congestion/CHF. On 12/18/2021 patient seen in follow-up on selective care unit, he is currently on Airvo at 60 L and FiO2 of 92% and his pulse ox is greater than 97% and this can probably be weaned further down, he is awake and alert, oriented 3, breathing comfortably he is resting in bed watching TV. He is pleasant and cooperative. he remains on oral Lasix at 40 mg every 12 hours, he is sofia ntaining negative fluid balance of -625 mL over the last 24 hours. Chest x-ray findings were consistent with acute exacerbation of CHF with known diastolic dysfunction, his CTA chest was negative for evidence of pulmonary embolism. It did show moderate pulmonary interstitial edema and mid and the lower lung colon. Patient continues on nebulized bronchodilators, he remains on Symbicort. Patient has no significant edema in his bilateral lower legs. Dopplers of the lower extremities were limited due to patient's body habitus, but within the limitation of the study there was no sonographic findings of DVT in the lower extremities. Today's labs have been reviewed, his white blood cell, 7.2, hemoglobin is 15.8, sodium is 138, potassium 3.9, chloride is 89, CO2 is 37, BUN 13 creatinine 0.57. Patient tested negative for COVID-19, influenza A and B and RSV. On 12/19/2021 patient seen in follow-up on selective care unit, he remains on high flow oxygen, per Airvo with 55 L and FiO2 of 85% and his pulse ox is 88- 94%. Patient is sleepy this morning however she arouses to voice, he answers simple questions, he feels very fatigued. Nursing reports that the patient does not sleep well at night and she was up until 4:00 in the morning area. Has been extensively diuresed, his IV Lasix has been switched to oral Lasix 40 mg twice daily however he appears to be dehydrated on clinical exam. His oral intake is fair, his appetite is good other than this morning she only consumed 25% of his meal because of being tired. Lung sounds are positive for bibasilar crackles, no rhonchi or wheezes, no significant edema involving his bilateral lower extremities, today's chest x-ray has been reviewed showing lung volumes, patchy bibasilar atelectasis or scarring, cardiomegaly. Today's labs have been reviewed showing white blood cell count is 7.8, hemoglobin of 15.9, sodium is 136, potassium is 4.5, chloride is 90, CO2 is 43, B1 is 21, creatinine 0.7, his LFTs are improved, AST is now within normal limits at 37, ALT is 252, and alkaline phosphatase is 93, his pro-calcitonin level came back negative at 0.12. Patient was tested negative for COVID-19 2, tested negative for influenza A and B, and RSV. On 12/20/2021 patient seen in follow-up on selective care unit, he is awake and alert, in no acute distress, he continues on Airvo at 55 L and FiO2 of 85% is pulse ox is around 96%, breathing comfortably, lung sounds are diminished, clear no crackles, no rhonchi he continues on oral Lasix 40 mg once daily and he is in -1.5 L net fluid balance over the last 24 hours, he continues on Aldactone 12.5 mg daily, and yesterday we gave the patient 2 doses of oral Diamox 250 mg twice daily. Today's labs including electrolytes and renal profile are still pending, vital signs have been stable overnight, no fever or chills, occasional cough, no phlegm production. No complaints of chest discomfort. His yesterday's chest x- ray showed low lung volumes, no pneumothorax or pleural effusion. Patchy bilateral airspace disease. On 12/21/2021 patient seen in follow-up on selective care unit, he is awake and alert, in no acute distress, remains on Airvo at 50 L and FiO2 of 80%, and his pulse ox is 92%, he is breathing quite comfortably, he remains on once daily dose of oral Lasix 40 mg, remains on Aldactone, he is in negative 1.3 L net fluid balance over the last 24 hours. Today's chest x-ray showing patchy basilar densities, and stable cardiomegaly. Today's labs have been reviewed, sodium is 137, potassium is 4.3, chloride is 98, CO2 is 37, BUN is 20 creatinine 0.72. Patient denies any worsening dyspnea, cough or chest discomfort. On 12/22/2021 rapid response team was called in view of worsening hypoxia, patient has been on Airvo at 50 L and FiO2 of 80%, and he was noted to have O2 saturations in the low 80s, and subsequently his Airvo flow was increased to 60 L and FiO2 of 90% and patient was also placed on in the 100% nonrebreather mask and continued to have low O2 saturations at around 83%. Patient is awake, she still refuses to wear the BiPAP, he is crying, but he is responding appropriately, does not appear to be in any acute distress. He had been on oral dose Lasix once daily, on Aldactone and once daily dose of Diamox 250 mg. Patient has been maintaining negative fluid balance over the last several days, and the last 24 hours he is in -1044 mL negative net fluid balance, today's chest x-ray showing cardiomegaly, low lung volumes, no evident pneumothorax, tidal patchy attenuation possibly related to atelectasis or interstitial edema. Patient was given an additional dose of IV Lasix 40 mg this morning, Bose catheter has been inserted and patient has put out over a liter in urine output. Subsequently he was transferred to the intensive care unit for closer monitoring, he remains awake and alert, denies any acute distress, mildly conges alfred cough, no phlegm production. He is watching TV, he is comfortable. Denies any chest discomfort. His had no fever or chills overnight, he starting to diurese. He still refuses to wear BiPAP, with deep breathing has pulse ox comes up to 96%. He will be given an incentive spirometer. Today's labs are still pending. Patient has been on GI and DVT prophylaxis with oral Pepcid and heparin 5000 units every 12 hours subcu. His d-dimer was elevated on admission, but CTA chest was completed showing no evidence of pulmonary embolism, lower extremity Dopplers were negative for DVT in the limitation of the study. On 12/23/2021, I'm seeing the patient for a follow-up. The patient remains on Airvo 60 L an FiO2 of 90%. The patient is able to maintain a pulse ox of above 88%. No signs of any significant respiratory distress. No significant cough sputum production chest vessel wheezing. The patient is having some oral dryness. The input output balance has been negative in the order of 1044 mL over the past 24 hours. The patient remains on IV Lasix 40 mg IV push every 12 hours and the patient is also on Aldactone 12.5 mg by mouth daily and the patient is also on Diamox 250 mg IV every 12 hours. The electrolytes from today shows a sodium of 136, serum bicarbonate 40, BUN is 25 with creatinine 0.8. Potassium level is at 4.0. The white cell count is at 9.7 with a hemoglobin of 15.9 and a platelet count of 206. The chest x-ray from today shows interstitial edema/CHF and cardiomegaly. The blood gases obtained yesterday showed a pH of 7.33 with an episode of 82 and this is consistent with an acute on top of chronic hypercapnic respiratory failure. The patient's pO2 was at 59 and this was done while the patient on Airvo 60 L an FiO2 of 90%. 12/24/2021, I'm seeing the patient for a follow-up. He is comfortable. Upon doing some breathing exercises and deep breathing, the patient is able to bring up his oxygen saturation up to 97%. This further supports presence of significant amount of atelectasis in lung bases. Based on that, I made recommendations to set up this patient on a chair and be more aggressive with his pulmonary toileting. He remains on Airvo 60 L with an FiO2 of 90%. The patient is still on Lasix and Diamox. Overall fluid balance is -1.98 his over the past 24 hours. Serum bicarbonate 41. BUN is at 29 with a creatinine of 0.89. He is doing well. He denies having any respiratory distress. No significant cough sputum production chest that is so wheezing. He is tolerating his diet. No other issues otherwise for now. 12/25/2021, seeing the patient for a follow-up. Patient is doing well. Remains on Airvo 60 L with an FiO2 of 90%. Continues to undergo aggressive diuresis and aggressive pulmonary toileting. The patient was provided incentive spirometer. The patient was also most on a chair when he was able to breathe more co mfortably. Overall fluid balance has been negative at least 1 L over the past 24 hours and the patient is headed towards a negative fluid balance over the next 24 hours. His serum bicarbonate 40. BUN is at 29 with a creatinine of 0.89. Meanwhile, the patient is still on Lasix 40 mg IV every 12 hours. The patient is also receiving Diamox. The patient on Aldactone. Potassium level is at 3.6 and this being replaced per protocol. Oxidation is improved and the patient's pulse is 97% on above-mentioned Airvo setting. He is awake. He is alert. He is not showing any signs of any respiratory distress. 12/26/2021, I'm seeing the patient for a follow-up. The patient remains on Airvo 60 L with an FiO2 of 75%. The patient was being diuresed with IV Lasix and as of yesterday, the patient developed a diminished urine output. He also developed an acute kidney injury in the creatinine was up to 1.5 from today. Meanwhile, his net fluid balance is still negative around 2.2 L over the past 24 hours. Urine output slowed down initially and then it picked up again. His weight is down 219 kg. Based on all this, I decided to stop the diuretics for 24 hours. Give the patient 500 mL of bolus. He is still the same condition. His chest x-ray still showing pulmonary edema. No nausea. No vomiting. No diarrhea. No abdominal pain. No change in his mentation above and beyond his baseline. No other significant events otherwise for now.. He is using incentive spirometer. Was also doing aggressive pulmonary toileting on this patient. 12/27/2021, I'm seeing the patient for a follow-up. The patient was taken off the diuretic as the patient had a rise in the creatinine up to 1.5. On today's evaluation, he is still negative fluid balance of 270 mL in the creatinine is down to 0.9. He is still on Airvo with 15 L with an FiO2 of 70%. I tried to drop down further and is able settings and the patient desaturated and his pulse ox dropped down to the low 80s. His chest x-ray remains unchanged and there is increased vessel markings and pulmonary edema still present. Lasix will be started today and a dose of Lasix was given this morning 40 mg IV push. Doing well. No new complaints. Using incentive spirometer. Aggressive pulmonary toileting is being done. No other significant events overnight otherwise for now. On his blood work, the patient has a white cell count of 8.6 with a hemoglobin 14.8. BUN is at 49 with a creatinine of 0.9 and sodium level is at 133 and a serum bicarb is at 35. Objective - Vital Signs Vital signs: Vital Signs Temp 99.0 F 12/27/21 04:00 Pulse 67 12/27/21 09:00 Resp 24 12/27/21 09:00 BP 99/58 12/27/21 09:00 Pulse Ox 88 L 12/27/21 09:00 Intake & Output 12/26/21 12/27/21 12/27/21 18:59 06:59 18:59 Intake Total 2100 Output Total 1135 1415 650 Balance 965 -1415 -650 Weight 119.3 kg Intake: Intake, IV Titration 1000 Amount Sodium Chloride 0.9% 1, 1000 000 ml @ 999 mls/hr IV . Q1H1M ONE Rx#:[id number] Oral 1100 Output: Urine 1135 1415 650 Other: Voiding Method Indwelling Catheter Indwelling Catheter Indwelling Catheter - Exam GENERAL EXAM: Awake and alert, 45-year-old male with typical features of Down syndrome on currently resting comfortably in bed, currently on Airvo at 15 L with an FiO2 of 70% HEAD: Normocephalic/atraumatic. EYES: Normal reaction of pupils, equal size. Conjunctiva pink, sclera white. NOSE: Clear with pink turbinates. THROAT: No erythema or exudates. NECK: No masses, no JVD, no thyroid enlargement, no adenopathy. CHEST: No chest wall deformity. Symmetrical expansion. LUNGS: Equal air entry with diminished breath sounds, bibasilar crackles CVS: Regular rate and rhythm, normal S1 and S2, no gallops, no murmurs, no rubs ABDOMEN: Soft, nontender. No hepatosplenomegaly, normal bowel sounds, no guarding or rigidity. EXTREMITIES: No clubbing, no lower extremity edema no cyanosis, 2+ pulses and upper and lower extremities. MUSCULOSKELETAL: Muscle strength and tone normal. SPINE: No scoliosis or deformity SKIN: No rashes CENTRAL NERVOUS SYSTEM: Awake and alert, No focal deficits, tone is normal in all 4 extremities. - Labs CBC & Chem 7: 12/27/21 05:26 12/27/21 05:26 Labs: Abnormal Lab Results - Last 24 Hours (Table) 12/27/21 12/27/21 Range/Units 05:26 05:26 MCV 100.2 H (80.0-100.0) fL MCHC 30.2 L (31.0-37.0) g/dL RDW 22.8 H (11.5-15.5) % Macrocytosis Marked A Sodium 133 L (137-145) mmol/L Chloride 96 L (98-107) mmol/L Carbon Dioxide 35 H (22-30) mmol/L BUN 49 H (9-20) mg/dL Glucose 115 H (74-99) mg/dL Calcium 8.2 L (8.4-10.2) mg/dL Assessment and Plan Plan: #1. Acute hypoxic respiratory failure secondary to acute exacerbation of diastolic CHF. COVID-19 PCR, influenza A and B and RSV were negative. On 12/22/2021 patient was noted to have worsening hypoxia, rapid response team was called, patient is currently on Airvo, 15 L with an FiO2 of 70%, and the chest x-rays consistent with CHF/volume overload . Blood gases was noted that shows also a component of an acute on top of chronic hypoxic and hypercapnic respiratory failure. The patient is a negative fluid balance. I believe the patient's respiratory failure is multifactorial, including hypoventilation, atelectasis, interstitial edema and fluid. The patient was responding well to diuresis. Diuretics were placed on hold yesterday because of the development of an acute kidney injury in the creatinine was up to 1.5. This morning, the creatinine is normalized down to 0.9. #2. Recent hospitalization for acute exacerbation of CHF with the possibility of aspiration related pneumonia and acute lung injury/ARDS is thought to be less likely. #3. Elevated troponin levels, likely related to acute CHF, please refer to cardiology consultation #4. Obstructive sleep apnea intolerant to CPAP #5. Morbid obesity with BMI 43.7 kg/m #6. History of Down syndrome #7. History of hyperlipidemia #8. History of obstructive sleep apnea, intolerant to CPAP #9. Obesity hypoventilation syndrome #10. Elevated d-dimer, without CT evidence of pulmonary embolism or DVT on lower extremity Dopplers #11 acute kidney injury in the creatinine is up to 1.5, likely secondary diuresis. Diuretics were placed on hold and the creatinine is down to 0 point on today's evaluation. Plan: Restart Lasix 40 mg IV every 24 hours Monitor urine output Monitor renal function Repeat another set of electrolytes is around 4:00 PM today Change Airvo to 50 L with an FiO2 of 60% and wean the FiO2 further to maintain a saturation above 90% Maintenance saturation above 90% Continue using incentive spirometer Sit up this patient on a chair Provide incentive spirometer We'll continue to follow closely in the Intensive Care unit,
[2021-12-28 06:19] LABS: Anisocytosis Moderate; HGB 14.6 gm/dL (13.0-17.5); Hypochromasia Marked; MCHC 31.1 g/dL (31.0-37.0); MCV 99.4 fL (80.0-100.0); Macrocytosis Moderate; Mean Platelet Volume 8.8; Platelet Count 210 k/uL (150-450); RBC 4.72 m/uL (4.30-5.90); RDW 23.1 % (11.5-15.5); WBC 7.9 k/uL (3.8-10.6)
[2021-12-28 06:30] LABS: African American GFR (CKD) >90 (>60 ml/min/1.73 sqM); Anion Gap 4 mmol/L; Blood Urea Nitrogen 27 mg/dL (9-20); Calcium 8.4 mg/dL (8.4-10.2); Carbon Dioxide 35 mmol/L (22-30); Chloride 97 mmol/L (98-107); Glucose 111 mg/dL (74-99); Non-African American GFR(CKD) >90 (>60 ml/min/1.73 sqM); Potassium 4.7 mmol/L (3.5-5.1); Sodium 136 mmol/L (137-145)
[2021-12-28] MEDS: SYMBICORT 160-4.5 MCG INHALER INHALATION SCH ×2 (07:37→19:51)
[2021-12-28] MEDS: IPRATROPIUM-ALBUTEROL 3 ML NEB INHALATION SCH ×4 (07:37→19:51)
--- NOTE | 2021-12-28 07:55 | XR ---
EXAMINATION TYPE: XR chest 1V portable DATE OF EXAM: 12/28/2021 COMPARISON: Chest x-ray 12/27/2021 HISTORY: Hypoxemia TECHNIQUE: Single frontal view of the chest is obtained. FINDINGS: Patchy basilar density persists. No evident pneumothorax or pleural effusion. Cardiac medi astinal silhouette is stable. IMPRESSION: No interval change. Correlate for pneumonia versus edema, atelectasis or scar
[2021-12-28] MEDS: HEPARIN SODIUM,PORCINE/PF 5,000 UNIT/0.5 ML SYRINGE SQ SCH ×2 (08:34→20:12)
[2021-12-28] MEDS: ASPIRIN 81 MG PO SCH (08:34)
[2021-12-28] MEDS: FAMOTIDINE 20 MG TAB PO SCH ×2 (08:34→20:12)
[2021-12-28] MEDS: ATORVASTATIN 40 MG TAB PO SCH (08:34)
[2021-12-28] MEDS: FUROSEMIDE 10 MG/ML 4 ML VIAL IV SCH ×2 (08:34→20:12)
--- NOTE | 2021-12-28 12:29 | P.PN ---
Subjective Progress Note Date: 12/28/21 This is a pleasant 46-year-old male patient with a history of Down syndrome, diastolic congestive heart failure, recurrent aspiration pneumonias, obstructive sleep apnea intolerant to CPAP, hyperlipidemia, gastroesophageal reflux disease. He follows with Dr. Quintanilla as his primary care provider. He was recently here for almost a month for multifactorial issues regarding shortness of breath secondary to diastolic congestive heart failure aspiration pneumonia and hypoventilation syndrome. He was discharged on 11/13/2021. He was brought back to the emergency room yesterday with increasing shortness of breath. X-ray showed progressive patchy perihilar and basilar infiltrates compared to 11/11/2021. CT angiogram revealed no evidence of pulmonary embolism. There is moderate pulmonary interstitial edema in the mid and lower lung colon. Previous echocardiogram revealed preserved left ventricular systolic function with ejection fraction 50-55%. Lower extremities negative for DVTs. White cou nt 11.7. Hemoglobin 14.8. INR 1.2. D-dimer 3.44. Sodium 134. Potassium 3.9. Chloride 87. Bicarb 42. BUN 18. Creatinine 0.61. Glucose 143. Troponins 0.40, 0.28, 0.25. ProBNP 3290. Urinalysis clean. Chavira virus by PCR not detected. Pro-calcitonin pending. He's been initiated on DuoNeb inhalations, Symbicort. Lasix 40 mg by mouth every 8 hours. Aldactone. Progress note dated 12/17/2021. 46-year-old male with history of down syndrome, diastolic CHF, recurrent aspiration pneumonia, sleep apnea, hyperlipidemia, and GERD. His primary care physician is Dr. Quintanilla. He was recently here for almost a month for shortness of breath, secondary to CHF. At that time, he was also thought to have aspiration pneumonia. He was finally discharged on 11/13/2021. He was brought back to the emergency room, 2 days ago, with increasing shortness of breath, and diffuse bilateral infiltrates. There was no pulmonary embolism on CT angiogram. Currently, the patient is on AIRVO, at 60 L/m with an FiO2 of 90%. He's not receiving any IV fluids. His nurse held his nitroglycerin this morning, because his blood pressure was a bit soft. Labs today include a white count of 7.2, hemoglobin 15.8, hematocrit 51.7, and a platelet count of 188,000. Sodium was 138, potassium 3.9, chloride 99, CO2 37, anion gap 12, BUN 13, creatinine 0.57. AST was 164 and ALT was 591. Troponins were 0.282 and 0.255. Urine was negative. Chest x-ray was consistent with cardiomegaly, and pulmonary vascular congestion/CHF. On 12/18/2021 patient seen in follow-up on selective care unit, he is currently on Airvo at 60 L and FiO2 of 92% and his pulse ox is greater than 97% and this can probably be weaned further down, he is awake and alert, oriented 3, breathing comfortably he is resting in bed watching TV. He is pleasant and cooperative. he remains on oral Lasix at 40 mg every 12 hours, he is sofia ntaining negative fluid balance of -625 mL over the last 24 hours. Chest x-ray findings were consistent with acute exacerbation of CHF with known diastolic dysfunction, his CTA chest was negative for evidence of pulmonary embolism. It did show moderate pulmonary interstitial edema and mid and the lower lung colon. Patient continues on nebulized bronchodilators, he remains on Symbicort. Patient has no significant edema in his bilateral lower legs. Dopplers of the lower extremities were limited due to patient's body habitus, but within the limitation of the study there was no sonographic findings of DVT in the lower extremities. Today's labs have been reviewed, his white blood cell, 7.2, hemoglobin is 15.8, sodium is 138, potassium 3.9, chloride is 89, CO2 is 37, BUN 13 creatinine 0.57. Patient tested negative for COVID-19, influenza A and B and RSV. On 12/19/2021 patient seen in follow-up on selective care unit, he remains on high flow oxygen, per Airvo with 55 L and FiO2 of 85% and his pulse ox is 88- 94%. Patient is sleepy this morning however she arouses to voice, he answers simple questions, he feels very fatigued. Nursing reports that the patient does not sleep well at night and she was up until 4:00 in the morning area. Has been extensively diuresed, his IV Lasix has been switched to oral Lasix 40 mg twice daily however he appears to be dehydrated on clinical exam. His oral intake is fair, his appetite is good other than this morning she only consumed 25% of his meal because of being tired. Lung sounds are positive for bibasilar crackles, no rhonchi or wheezes, no significant edema involving his bilateral lower extremities, today's chest x-ray has been reviewed showing lung volumes, patchy bibasilar atelectasis or scarring, cardiomegaly. Today's labs have been reviewed showing white blood cell count is 7.8, hemoglobin of 15.9, sodium is 136, potassium is 4.5, chloride is 90, CO2 is 43, B1 is 21, creatinine 0.7, his LFTs are improved, AST is now within normal limits at 37, ALT is 252, and alkaline phosphatase is 93, his pro-calcitonin level came back negative at 0.12. Patient was tested negative for COVID-19 2, tested negative for influenza A and B, and RSV. On 12/20/2021 patient seen in follow-up on selective care unit, he is awake and alert, in no acute distress, he continues on Airvo at 55 L and FiO2 of 85% is pulse ox is around 96%, breathing comfortably, lung sounds are diminished, clear no crackles, no rhonchi he continues on oral Lasix 40 mg once daily and he is in -1.5 L net fluid balance over the last 24 hours, he continues on Aldactone 12.5 mg daily, and yesterday we gave the patient 2 doses of oral Diamox 250 mg twice daily. Today's labs including electrolytes and renal profile are still pending, vital signs have been stable overnight, no fever or chills, occasional cough, no phlegm production. No complaints of chest discomfort. His yesterday's chest x- ray showed low lung volumes, no pneumothorax or pleural effusion. Patchy bilateral airspace disease. On 12/21/2021 patient seen in follow-up on selective care unit, he is awake and alert, in no acute distress, remains on Airvo at 50 L and FiO2 of 80%, and his pulse ox is 92%, he is breathing quite comfortably, he remains on once daily dose of oral Lasix 40 mg, remains on Aldactone, he is in negative 1.3 L net fluid balance over the last 24 hours. Today's chest x-ray showing patchy basilar densities, and stable cardiomegaly. Today's labs have been reviewed, sodium is 137, potassium is 4.3, chloride is 98, CO2 is 37, BUN is 20 creatinine 0.72. Patient denies any worsening dyspnea, cough or chest discomfort. On 12/22/2021 rapid response team was called in view of worsening hypoxia, patient has been on Airvo at 50 L and FiO2 of 80%, and he was noted to have O2 saturations in the low 80s, and subsequently his Airvo flow was increased to 60 L and FiO2 of 90% and patient was also placed on in the 100% nonrebreather mask and continued to have low O2 saturations at around 83%. Patient is awake, she still refuses to wear the BiPAP, he is crying, but he is responding appropriately, does not appear to be in any acute distress. He had been on oral dose Lasix once daily, on Aldactone and once daily dose of Diamox 250 mg. Patient has been maintaining negative fluid balance over the last several days, and the last 24 hours he is in -1044 mL negative net fluid balance, today's chest x-ray showing cardiomegaly, low lung volumes, no evident pneumothorax, tidal patchy attenuation possibly related to atelectasis or interstitial edema. Patient was given an additional dose of IV Lasix 40 mg this morning, Bose catheter has been inserted and patient has put out over a liter in urine output. Subsequently he was transferred to the intensive care unit for closer monitoring, he remains awake and alert, denies any acute distress, mildly conges alfred cough, no phlegm production. He is watching TV, he is comfortable. Denies any chest discomfort. His had no fever or chills overnight, he starting to diurese. He still refuses to wear BiPAP, with deep breathing has pulse ox comes up to 96%. He will be given an incentive spirometer. Today's labs are still pending. Patient has been on GI and DVT prophylaxis with oral Pepcid and heparin 5000 units every 12 hours subcu. His d-dimer was elevated on admission, but CTA chest was completed showing no evidence of pulmonary embolism, lower extremity Dopplers were negative for DVT in the limitation of the study. On 12/23/2021, I'm seeing the patient for a follow-up. The patient remains on Airvo 60 L an FiO2 of 90%. The patient is able to maintain a pulse ox of above 88%. No signs of any significant respiratory distress. No significant cough sputum production chest vessel wheezing. The patient is having some oral dryness. The input output balance has been negative in the order of 1044 mL over the past 24 hours. The patient remains on IV Lasix 40 mg IV push every 12 hours and the patient is also on Aldactone 12.5 mg by mouth daily and the patient is also on Diamox 250 mg IV every 12 hours. The electrolytes from today shows a sodium of 136, serum bicarbonate 40, BUN is 25 with creatinine 0.8. Potassium level is at 4.0. The white cell count is at 9.7 with a hemoglobin of 15.9 and a platelet count of 206. The chest x-ray from today shows interstitial edema/CHF and cardiomegaly. The blood gases obtained yesterday showed a pH of 7.33 with an episode of 82 and this is consistent with an acute on top of chronic hypercapnic respiratory failure. The patient's pO2 was at 59 and this was done while the patient on Airvo 60 L an FiO2 of 90%. 12/24/2021, I'm seeing the patient for a follow-up. He is comfortable. Upon doing some breathing exercises and deep breathing, the patient is able to bring up his oxygen saturation up to 97%. This further supports presence of significant amount of atelectasis in lung bases. Based on that, I made recommendations to set up this patient on a chair and be more aggressive with his pulmonary toileting. He remains on Airvo 60 L with an FiO2 of 90%. The patient is still on Lasix and Diamox. Overall fluid balance is -1.98 his over the past 24 hours. Serum bicarbonate 41. BUN is at 29 with a creatinine of 0.89. He is doing well. He denies having any respiratory distress. No significant cough sputum production chest that is so wheezing. He is tolerating his diet. No other issues otherwise for now. 12/25/2021, seeing the patient for a follow-up. Patient is doing well. Remains on Airvo 60 L with an FiO2 of 90%. Continues to undergo aggressive diuresis and aggressive pulmonary toileting. The patient was provided incentive spirometer. The patient was also most on a chair when he was able to breathe more co mfortably. Overall fluid balance has been negative at least 1 L over the past 24 hours and the patient is headed towards a negative fluid balance over the next 24 hours. His serum bicarbonate 40. BUN is at 29 with a creatinine of 0.89. Meanwhile, the patient is still on Lasix 40 mg IV every 12 hours. The patient is also receiving Diamox. The patient on Aldactone. Potassium level is at 3.6 and this being replaced per protocol. Oxidation is improved and the patient's pulse is 97% on above-mentioned Airvo setting. He is awake. He is alert. He is not showing any signs of any respiratory distress. 12/26/2021, I'm seeing the patient for a follow-up. The patient remains on Airvo 60 L with an FiO2 of 75%. The patient was being diuresed with IV Lasix and as of yesterday, the patient developed a diminished urine output. He also developed an acute kidney injury in the creatinine was up to 1.5 from today. Meanwhile, his net fluid balance is still negative around 2.2 L over the past 24 hours. Urine output slowed down initially and then it picked up again. His weight is down 219 kg. Based on all this, I decided to stop the diuretics for 24 hours. Give the patient 500 mL of bolus. He is still the same condition. His chest x-ray still showing pulmonary edema. No nausea. No vomiting. No diarrhea. No abdominal pain. No change in his mentation above and beyond his baseline. No other significant events otherwise for now.. He is using incentive spirometer. Was also doing aggressive pulmonary toileting on this patient. 12/27/2021, I'm seeing the patient for a follow-up. The patient was taken off the diuretic as the patient had a rise in the creatinine up to 1.5. On today's evaluation, he is still negative fluid balance of 270 mL in the creatinine is down to 0.9. He is still on Airvo with 15 L with an FiO2 of 70%. I tried to drop down further and is able settings and the patient desaturated and his pulse ox dropped down to the low 80s. His chest x-ray remains unchanged and there is increased vessel markings and pulmonary edema still present. Lasix will be started today and a dose of Lasix was given this morning 40 mg IV push. Doing well. No new complaints. Using incentive spirometer. Aggressive pulmonary toileting is being done. No other significant events overnight otherwise for now. On his blood work, the patient has a white cell count of 8.6 with a hemoglobin 14.8. BUN is at 49 with a creatinine of 0.9 and sodium level is at 133 and a serum bicarb is at 35. 12/28/2021, I'm seeing the patient for a follow-up. The patient is still on Airvo. Overnight, the patient started desaturating and the patient was placed back again on high flow oxygen 6 L an FiO2 of 80% this morning. Renal function is normalized and the creatinine is down to 0.67 and the patient remains in a negative fluid balance. Overall fluid balance is -2.6 L over the past 24 hours. I strictly believe that the patient is hypoventilating and the patient has si gnificant atelectatic changes in lung bases as the patient is able to generate a pulse ox of 97% with few deep breaths. The chest x-ray remains unchanged. Renal function is normalized. Based on that, I'm resuming diuretics again on this patient. He is awake and alert. He is interactive. Electrodes are stable. Serum bicarb is at 35. On today's evaluation to be an is 27 with a creatinine of 0.6. The white cell count is 7.9. He is afebrile. He is hemodynamically stable at this point in time. Objective - Vital Signs Vital signs: Vital Signs Temp 99 F 12/28/21 08:00 Pulse 68 12/28/21 11:00 Resp 12 12/28/21 11:00 BP 109/61 12/28/21 11:00 Pulse Ox 89 L 12/28/21 11:00 Intake & Output 12/27/21 12/28/21 12/28/21 18:59 06:59 18:59 Intake Total 1000 360 240 Output Total 2205 1760 435 Balance -1205 -1400 -195 Weight 119.3 kg 117.5 kg Intake: Oral 1000 360 240 Output: Urine 2205 1760 435 Other: Voiding Method Indwelling Catheter Indwelling Catheter Indwelling Catheter # Voids 0 - Exam GENERAL EXAM: Awake and alert, 45-year-old male with typical features of Down syndrome on currently resting comfortably in bed, currently on Airvo at 60 L Airvo with an FiO2 of 80% HEAD: Normocephalic/atraumatic. EYES: Normal reaction of pupils, equal size. Conjunctiva pink, sclera white. NOSE: Clear with pink turbinates. THROAT: No erythema or exudates. NECK: No masses, no JVD, no thyroid enlargement, no adenopathy. CHEST: No chest wall deformity. Symmetrical expansion. LUNGS: Equal air entry with diminished breath sounds, bibasilar crackles CVS: Regular rate and rhythm, normal S1 and S2, no gallops, no murmurs, no rubs ABDOMEN: Soft, nontender. No hepatosplenomegaly, normal bowel sounds, no guarding or rigidity. EXTREMITIES: No clubbing, no lower extremity edema no cyanosis, 2+ pulses and upper and lower extremities. MUSCULOSKELETAL: Muscle strength and tone normal. SPINE: No scoliosis or deformity SKIN: No rashes CENTRAL NERVOUS SYSTEM: Awake and alert, No focal deficits, tone is normal in all 4 extremities. - Labs CBC & Chem 7: 12/28/21 05:26 12/28/21 05:26 Labs: Abnormal Lab Results - Last 24 Hours (Table) 12/28/21 12/28/21 Range/Units 05:26 05:26 RDW 23.1 H (11.5-15.5) % Sodium 136 L (137-145) mmol/L Chloride 97 L (98-107) mmol/L Carbon Dioxide 35 H (22-30) mmol/L BUN 27 H (9-20) mg/dL Glucose 111 H (74-99) mg/dL Assessment and Plan Plan: #1. Acute hypoxic respiratory failure secondary to acute exacerbation of diastolic CHF. COVID-19 PCR, influenza A and B and RSV were negative. On 12/22/2021 patient was noted to have worsening hypoxia, rapid response team was called, patient is currently on Airvo, 60 L an FiO2 of 80%. The patient is stable. Diuretics will be resumed. They're attempting to maintain negative fluid balance. Hypoxemia is multifactorial related to hypoventilation, atelectasis, and some interstitial edema. liters #2. Recent hospitalization for acute exacerbation of CHF with the possibility of aspiration related pneumonia and acute lung injury/ARDS is thought to be less likely. #3. Elevated troponin levels, likely related to acute CHF, please refer to cardiology consultation #4. Obstructive sleep apnea intolerant to CPAP #5. Morbid obesity with BMI 43.7 kg/m #6. History of Down syndrome #7. History of hyperlipidemia #8. History of obstructive sleep apnea, intolerant to CPAP #9. Obesity hypoventilation syndrome #10. Elevated d-dimer, without CT evidence of pulmonary embolism or DVT on lower extremity Dopplers #11 acute kidney injury in the creatinine is up to 1.5, likely secondary diuresis. Diuretics were placed on hold and the creatinine is down to 0 point on today's evaluation. Plan: Put the patient on 15 L nasal cannula high flow Restart Lasix 40 mg IV every 12 hours Monitor urine output Monitor renal function Maintenance saturation above 90% Continue using incentive spirometer Sit up this patient on a chair Provide incentive spirometer We'll continue to follow closely in the Intensive Care unit,
[2021-12-28] MEDS ORDERED: bisacodyL 10 MG SUPP RECTAL PRN (15:46)
[2021-12-28] MEDS: polyethylene glycoL 3350 17 GM POWD.PACK PO SCH (16:27)
--- NOTE | 2021-12-28 21:58 | P.PN ---
Subjective Progress Note Date: 12/27/21 This is a pleasant 46 years old male with past medical history of Asthma, GERD/Reflux, Hyperlipidemia, Memory Impairment, Down syndrome/IQ of about 74, chronic feet issue d/t gout, SHARRI but pt unable to tolerate CPAP Patient is poor historian, sitting in bed eating his breakfast with no difficulty on high flow nasal cannula, he can tell me he is in the hospital but he could not recognize which hospital, the date or the name of the president. When I ask her most recently came to the hospital he points to his right forearm block stating it is because of this. However patient states that his breathing is better now and he denies chest pain or abdominal pain or any other complaints He denies smoking, alcohol or illicit drugs. Patient is hypoxic on the presentation, with oxygen saturating 88% on 4 L and 82% on 50 L, currently on high flow nasal cannula 55%. Afebrile, tachypneic. Has leukocytosis of 11.7, rest of CBC is unremarkable. INR is 1.2 D-dimer is 3.4. BMP is unremarkable, liver enzymes significantly elevated with AST 642 and ALT 1133. Troponin is elevated at 0.4 and 0.2. Urine analysis is not suspicious of infection. Coronal versus nondetected. EKG: Normal sinus rhythm at [address]-T abnormality. Patient was started on aspirin 325 mg, IV Lasix and then oral Lasix 40 mg every 8 hours, bronchodilator. With cardiology team consulted Echocardiogram done on 09/2021 showing preserved ejection fraction of 50-55%. 12/17/2021 Can awake but sleepy, he follows commands. He still slightly tachypneic. He remains on high flow oxygen via nasal cannula at 60 L/m. Chest x-ray showed slight increase in the mid and lower lung zones Pro-calcitonin only mildly elevated 0.12, proBNP is normal which goes against CHF at 323 We are going to recheck cold, influenza and RSV 12/18/2021 Patient is awaken although is sleeping a lot. He looks pleasant and answer questions however he looks confused for example when asking is this year house he said yes. History of on airvo Quiring 60 L/M with 90% oxygen. He is has proximal area with unknown reason. This Procalcitonin and proBNP are both low level. CTA is negative for PE. There is no evidence of wheezing. His CTA showing bilateral infiltrates and obesity may contribute to factor. Pulmonary and cardiology team on the case Currently he is on oral Lasix 40 mg twice a day, aspirin 325 mg and subcu heparin Viral test for Covid, influenza and RSV came back negative 12/19/2021 Sleepy and drowsy most of the time, he is tachypneic, he still requiring oxygen supplementation at 55 L with saturation of 88%. ABG today showing compensated hypercapnia with pH normal at 7.3 and pCO2 elevated 77. PO2 is 74. ABG bicarb is 45 which is elevated. Also BMP is showing evidence of contraction alkalosis with elevated carbon dioxide 43 and elevated BUN/creatinine ratio 21/0.77. Lasix dose will be held today. Pulmonary and cardiology team on the case. Chest x-ray today showing pneumonia versus fibrotic changes/scar We will repeat pro-calcitonin, patient currently is not on antibiotic, he is on by mouth Lasix 40 mg daily and a stent of twice a day 12/20/2021 patient remains on oxygen, history of on airvo at 55 L/m with 88% His pro-calcitonin is 0.12, we going to repeat , His ABG showed normal pH 7.3, high pCO2 77 and low PaO2 74. He remains on diuretic, pulmonary cartilage team on the case 12/21/2021 Patient is more awake today he is alert still confused he follow commands with simple instructions only. It looks like he has some elements of dementia and memory impairment. Remains on airvo with 50 L and FiO2 of 83% His pro-calcitonin with repeated is normal 0.08. Chest x-ray showing atelectasis versus pneumonia Remains on Acetazolamide, oral Lasix once daily at 40 mg. And aspirin 325 mg 12/22/2021 Patient was transferred to the ICU for worsening hypoxia, he is awake and alert, follows simple commands but it looks almost at baseline. He does not talk much. He does not look in respiratory distress. His oxygen requirements increased back to 60 L/m at 90%. he is saturating at 94% His chest x-ray showing pneumonia versus scarring versus atelectasis His pH is 7.3 pCO2 82 and pO2 is 59 which is low. ProBNP is 191 Patient is refusing to wear BiPAP His Lasix to switch from oral and IV. Continued on aspirin 325 mg and acetazolamide. 12/23/2021 Patient is currently in the MICU. Still requiring high flow oxygen Airvo 60 L with FiO2 90%. Patient is awake and alert.follows simple commands but it looks almost at baseline. Currently being continued IV Lasix 40 mg twice daily and is also on spironolactone and Diamox. Chest x-ray showed correlate for interstitial edema, pneumonia, CHF not excluded versus atelectasis or scarring. Cardiomegaly. Laboratory data showed WBC 9.7 hemoglobin 15.9 and platelets 206 sodium 136 potassium 4.0 chloride 91 bicarb is 40 BUN 25 and creatinine 0.84 and albumin 3.2. Pulmonary and cardiology is on board. 12/24/2021 Patient is currently sitting in the bed. Awake and alert. Denied any complaints of chest pain or worsening shortness of breath. Remains on high flow oxygen with FiO2 90%. Continued on Lasix and Diamox and does have negative balance over the last 24 hours. Laboratory data showed WBC 9.0 hemoglobin 16.3 and platelets 213 sodium 132 potassium 3.9 chloride 98 bicarb is 41 BUN 29 and creatinine 0.89 and albumin 3.2. Pulmonary is on board. Patient has been afebrile. Tolerating oral diet no complaints of dizziness or lightheadedness. No diarrhea. No abdominal pain. 12/25/2021 Patient remains in the MICU. Still requiring high flow oxygen at 60 L and FiO2 90%. Patient is on IV Lasix, Aldactone and Diamox.. Does have negative balance. No complaints of chest pain or worsening shortness of breath. No cough or sputum production. Patient has been afebrile. Tolerating oral diet. No headache or dizziness or lightheadedness. Laboratory data showed WBC 6.5 hemoglobin 15.6 and platelets 209 sodium 134 potassium 3.6 chloride 92 bicarb is 40 BUN 29 and creatinine 0.83 12/26/2021 Patient is currently sitting in the bed awake alert and oriented. Remains in the MICU. Still requiring high flow oxygen 40 L at FiO2 60%. Patient does have negative balance. Chest x-ray showed correlate for congestive heart failure, pneumonia atelectasis or scarring. Laboratory data showed creatinine level increased to 1.53 and BUN 47. Diuretics on hold currently due to worsening renal function. Laboratory data showed sodium 131 potassium 3.8 and chloride 89 bicarb is 39 and WBC 9.1 hemoglobin 15.5 and platelets 205. Patient has been afebrile. No nausea vomiting abdominal pain or diarrhea. Tolerating oral diet. 12/27/2021 Patient is currently sitting in the chair. Awake alert. Denies any complaints of chest pain or worsening shortness of breath. Currently requiring high flow oxygen 50 L with FiO2 70%. Chest x-ray showed correlate for basilar atelectasis versus pneumonia or edema. There may be some slight interval improvement in aeration, volume status. Laboratory data showed WBC 8.6 hemoglobin 14.8 MCV 100.1 platelets 203, sodium 133 potassium 4.1 bicarb 35. BUN 49 and creatinine 0.97. Creatinine level improved from 1.53 yesterday. Diuretics are on hold. Current medications reviewed. Objective - Vital Signs Vital signs: Vital Signs Temp 97.6 F 12/27/21 12:00 Pulse 80 12/27/21 14:57 Resp 26 H 12/27/21 14:00 BP 117/85 12/27/21 14:00 Pulse Ox 93 L 12/27/21 14:52 Intake & Output 12/26/21 12/27/21 12/27/21 18:59 06:59 18:59 Intake Total 2100 1000 Output Total 1135 1415 1800 Balance 965 -1415 -800 Weight 119.3 kg 119.3 kg Intake: Intake, IV Titration 1000 Amount Sodium Chloride 0.9% 1, 1000 000 ml @ 999 mls/hr IV . Q1H1M ONE Rx#:[id number] Oral 1100 1000 Output: Urine 1135 1415 1800 Other: Voiding Method Indwelling Catheter Indwelling Catheter Indwelling Catheter - Exam - Exam -GENERAL: The patient is alert and oriented x3, not in any acute distress. Obese, generally tired, Mentally challenged. HEENT: Pupils are round and equally reacting to light. EOMI. No scleral icterus. No conjunctival pallor. Normocephalic, atraumatic. No pharyngeal erythema. No thyromegaly. CARDIOVASCULAR: S1 and S2 present. No murmurs, rubs, or gallops. -PULMONARY: Chest is clear to auscultation, no wheezing or crackles. Mildly tachypneic ABDOMEN: Soft, nontender, nondistended, normoactive bowel sounds. No palpable organomegaly. MUSCULOSKELETAL: No joint swelling or deformity. EXTREMITIES: No cyanosis, clubbing, or pedal edema. NEUROLOGICAL: Gross neurological examination did not reveal any focal deficits. SKIN: No rashes. no petechiae. - Labs CBC & Chem 7: 12/28/21 05:26 12/28/21 05:26 Labs: Abnormal Lab Results - Last 24 Hours (Table) 12/27/21 12/27/21 Range/Units 05:26 05:26 MCV 100.2 H (80.0-100.0) fL MCHC 30.2 L (31.0-37.0) g/dL RDW 22.8 H (11.5-15.5) % Macrocytosis Marked A Sodium 133 L (137-145) mmol/L Chloride 96 L (98-107) mmol/L Carbon Dioxide 35 H (22-30) mmol/L BUN 49 H (9-20) mg/dL Glucose 115 H (74-99) mg/dL Calcium 8.2 L (8.4-10.2) mg/dL Assessment and Plan Assessment: Acute hypoxic respiratory failure secondary to diastolic CHF exacerbation. Requiring high flow oxygen via Airvo. Patient is refusing to wear BiPAP. Acute kidney injury likely prerenal due to diuretics. Elevated troponin likely demand ischemia elevated d-dimer with no evidence of PE or DVT Elevated liver enzymes , improving CTA of the chest showing no pulmonary embolism, moderate pulmonary interstitial edema in the mid and lower lung colon Memory problem most likely related to yearly Alzheimer's dementia, given his history of Down syndrome. Down syndrome History of asthma History of GERD History of memory impairment History of obstructive sleep apnea, not on CPAP, cannot tolerate. History of gout Plan: This is a pleasant 46 years old male with Down syndrome who presents with acute CHF hold Lasix 40 mg IV twice a day, aldactone and diamox.Monitor renal function. Continue with aspirin Labs and medication were reviewed..Monitor lytes and vitals. DVT and GI prophylaxis. DVT prophylaxis: Subcutaneous heparin GI Prophylaxis: Pepcid PT/OT: Pending Prognosis is guarded
--- NOTE | 2021-12-28 22:02 | P.PN ---
Subjective Progress Note Date: 12/28/21 This is a pleasant 46 years old male with past medical history of Asthma, GERD/Reflux, Hyperlipidemia, Memory Impairment, Down syndrome/IQ of about 74, chronic feet issue d/t gout, SHARRI but pt unable to tolerate CPAP Patient is poor historian, sitting in bed eating his breakfast with no difficulty on high flow nasal cannula, he can tell me he is in the hospital but he could not recognize which hospital, the date or the name of the president. When I ask her most recently came to the hospital he points to his right forearm block stating it is because of this. However patient states that his breathing is better now and he denies chest pain or abdominal pain or any other complaints He denies smoking, alcohol or illicit drugs. Patient is hypoxic on the presentation, with oxygen saturating 88% on 4 L and 82% on 50 L, currently on high flow nasal cannula 55%. Afebrile, tachypneic. Has leukocytosis of 11.7, rest of CBC is unremarkable. INR is 1.2 D-dimer is 3.4. BMP is unremarkable, liver enzymes significantly elevated with AST 642 and ALT 1133. Troponin is elevated at 0.4 and 0.2. Urine analysis is not suspicious of infection. Coronal versus nondetected. EKG: Normal sinus rhythm at [address]-T abnormality. Patient was started on aspirin 325 mg, IV Lasix and then oral Lasix 40 mg every 8 hours, bronchodilator. With cardiology team consulted Echocardiogram done on 09/2021 showing preserved ejection fraction of 50-55%. 12/17/2021 Can awake but sleepy, he follows commands. He still slightly tachypneic. He remains on high flow oxygen via nasal cannula at 60 L/m. Chest x-ray showed slight increase in the mid and lower lung zones Pro-calcitonin only mildly elevated 0.12, proBNP is normal which goes against CHF at 323 We are going to recheck cold, influenza and RSV 12/18/2021 Patient is awaken although is sleeping a lot. He looks pleasant and answer questions however he looks confused for example when asking is this year house he said yes. History of on airvo Quiring 60 L/M with 90% oxygen. He is has proximal area with unknown reason. This Procalcitonin and proBNP are both low level. CTA is negative for PE. There is no evidence of wheezing. His CTA showing bilateral infiltrates and obesity may contribute to factor. Pulmonary and cardiology team on the case Currently he is on oral Lasix 40 mg twice a day, aspirin 325 mg and subcu heparin Viral test for Covid, influenza and RSV came back negative 12/19/2021 Sleepy and drowsy most of the time, he is tachypneic, he still requiring oxygen supplementation at 55 L with saturation of 88%. ABG today showing compensated hypercapnia with pH normal at 7.3 and pCO2 elevated 77. PO2 is 74. ABG bicarb is 45 which is elevated. Also BMP is showing evidence of contraction alkalosis with elevated carbon dioxide 43 and elevated BUN/creatinine ratio 21/0.77. Lasix dose will be held today. Pulmonary and cardiology team on the case. Chest x-ray today showing pneumonia versus fibrotic changes/scar We will repeat pro-calcitonin, patient currently is not on antibiotic, he is on by mouth Lasix 40 mg daily and a stent of twice a day 12/20/2021 patient remains on oxygen, history of on airvo at 55 L/m with 88% His pro-calcitonin is 0.12, we going to repeat , His ABG showed normal pH 7.3, high pCO2 77 and low PaO2 74. He remains on diuretic, pulmonary cartilage team on the case 12/21/2021 Patient is more awake today he is alert still confused he follow commands with simple instructions only. It looks like he has some elements of dementia and memory impairment. Remains on airvo with 50 L and FiO2 of 83% His pro-calcitonin with repeated is normal 0.08. Chest x-ray showing atelectasis versus pneumonia Remains on Acetazolamide, oral Lasix once daily at 40 mg. And aspirin 325 mg 12/22/2021 Patient was transferred to the ICU for worsening hypoxia, he is awake and alert, follows simple commands but it looks almost at baseline. He does not talk much. He does not look in respiratory distress. His oxygen requirements increased back to 60 L/m at 90%. he is saturating at 94% His chest x-ray showing pneumonia versus scarring versus atelectasis His pH is 7.3 pCO2 82 and pO2 is 59 which is low. ProBNP is 191 Patient is refusing to wear BiPAP His Lasix to switch from oral and IV. Continued on aspirin 325 mg and acetazolamide. 12/23/2021 Patient is currently in the MICU. Still requiring high flow oxygen Airvo 60 L with FiO2 90%. Patient is awake and alert.follows simple commands but it looks almost at baseline. Currently being continued IV Lasix 40 mg twice daily and is also on spironolactone and Diamox. Chest x-ray showed correlate for interstitial edema, pneumonia, CHF not excluded versus atelectasis or scarring. Cardiomegaly. Laboratory data showed WBC 9.7 hemoglobin 15.9 and platelets 206 sodium 136 potassium 4.0 chloride 91 bicarb is 40 BUN 25 and creatinine 0.84 and albumin 3.2. Pulmonary and cardiology is on board. 12/24/2021 Patient is currently sitting in the bed. Awake and alert. Denied any complaints of chest pain or worsening shortness of breath. Remains on high flow oxygen with FiO2 90%. Continued on Lasix and Diamox and does have negative balance over the last 24 hours. Laboratory data showed WBC 9.0 hemoglobin 16.3 and platelets 213 sodium 132 potassium 3.9 chloride 98 bicarb is 41 BUN 29 and creatinine 0.89 and albumin 3.2. Pulmonary is on board. Patient has been afebrile. Tolerating oral diet no complaints of dizziness or lightheadedness. No diarrhea. No abdominal pain. 12/25/2021 Patient remains in the MICU. Still requiring high flow oxygen at 60 L and FiO2 90%. Patient is on IV Lasix, Aldactone and Diamox.. Does have negative balance. No complaints of chest pain or worsening shortness of breath. No cough or sputum production. Patient has been afebrile. Tolerating oral diet. No headache or dizziness or lightheadedness. Laboratory data showed WBC 6.5 hemoglobin 15.6 and platelets 209 sodium 134 potassium 3.6 chloride 92 bicarb is 40 BUN 29 and creatinine 0.83 12/26/2021 Patient is currently sitting in the bed awake alert and oriented. Remains in the MICU. Still requiring high flow oxygen 40 L at FiO2 60%. Patient does have negative balance. Chest x-ray showed correlate for congestive heart failure, pneumonia atelectasis or scarring. Laboratory data showed creatinine level increased to 1.53 and BUN 47. Diuretics on hold currently due to worsening renal function. Laboratory data showed sodium 131 potassium 3.8 and chloride 89 bicarb is 39 and WBC 9.1 hemoglobin 15.5 and platelets 205. Patient has been afebrile. No nausea vomiting abdominal pain or diarrhea. Tolerating oral diet. 12/27/2021 Patient is currently sitting in the chair. Awake alert. Denies any complaints of chest pain or worsening shortness of breath. Currently requiring high flow oxygen 50 L with FiO2 70%. Chest x-ray showed correlate for basilar atelectasis versus pneumonia or edema. There may be some slight interval improvement in aeration, volume status. Laboratory data showed WBC 8.6 hemoglobin 14.8 MCV 100.1 platelets 203, sodium 133 potassium 4.1 bicarb 35. BUN 49 and creatinine 0.97. Creatinine level improved from 1.53 yesterday. Diuretics are on hold. 12/28/2021 Patient is currently sitting in the bed comfortably. Awake alert and able to communicate. Patient still requiring high flow oxygen airvo with FiO2 80%. Chest x-ray today showed no interval change. Correlate for pneumonia versus edema., Atelectasis or scar. Patient was started back on IV Lasix. Renal function improved with creatinine level 0.67 today. Bicarb level is 35. WBC 7.9 and hemoglobin 14.6 and platelets 210. Current medications reviewed. Objective - Vital Signs Vital signs: Vital Signs Temp 98.7 F 12/28/21 12:00 Pulse 77 12/28/21 12:00 Resp 12 12/28/21 12:00 BP 126/94 12/28/21 12:00 Pulse Ox 88 L 12/28/21 12:00 Intake & Output 12/27/21 12/28/21 12/28/21 18:59 06:59 18:59 Intake Total 1000 360 240 Output Total 2205 1760 535 Balance -1205 -1400 -295 Weight 119.3 kg 117.5 kg Intake: Oral 1000 360 240 Output: Urine 2205 1760 535 Other: Voiding Method Indwelling Catheter Indwelling Catheter Indwelling Catheter # Voids 0 - Exam - Exam -GENERAL: The patient is alert and oriented x3, not in any acute distress. Obese, generally tired, Mentally challenged. HEENT: Pupils are round and equally reacting to light. EOMI. No scleral icterus. No conjunctival pallor. Normocephalic, atraumatic. No pharyngeal erythema. No thyromegaly. CARDIOVASCULAR: S1 and S2 present. No murmurs, rubs, or gallops. -PULMONARY: Chest is clear to auscultation, no wheezing or crackles. Mildly tachypneic ABDOMEN: Soft, nontender, nondistended, normoactive bowel sounds. No palpable organomegaly. MUSCULOSKELETAL: No joint swelling or deformity. EXTREMITIES: No cyanosis, clubbing, or pedal edema. NEUROLOGICAL: Gross neurological examination did not reveal any focal deficits. SKIN: No rashes. no petechiae. - Labs CBC & Chem 7: 12/28/21 05:26 12/28/21 05:26 Labs: Abnormal Lab Results - Last 24 Hours (Table) 12/28/21 12/28/21 Range/Units 05:26 05:26 RDW 23.1 H (11.5-15.5) % Sodium 136 L (137-145) mmol/L Chloride 97 L (98-107) mmol/L Carbon Dioxide 35 H (22-30) mmol/L BUN 27 H (9-20) mg/dL Glucose 111 H (74-99) mg/dL Assessment and Plan Assessment: Acute hypoxic respiratory failure secondary to diastolic CHF exacerbation. Requiring high flow oxygen via Airvo. Patient is refusing to wear BiPAP. Acute kidney injury likely prerenal due to diuretics. Elevated troponin likely demand ischemia elevated d-dimer with no evidence of PE or DVT Elevated liver enzymes , improving CTA of the chest showing no pulmonary embolism, moderate pulmonary interstitial edema in the mid and lower lung colon Memory problem most likely related to yearly Alzheimer's dementia, given his history of Down syndrome. Down syndrome History of asthma History of GERD History of memory impairment History of obstructive sleep apnea, not on CPAP, cannot tolerate. History of gout Plan: This is a pleasant 46 years old male with Down syndrome who presents with acute CHF started back on Lasix 40 mg IV twice a day. aldactone and diamox on hold. Monitor renal function. Continue with aspirin Labs and medication were reviewed..Monitor lytes and vitals. DVT and GI prophylaxis. DVT prophylaxis: Subcutaneous heparin GI Prophylaxis: Pepcid PT/OT: Pending Prognosis is guarded Time with Patient: Greater than 30
[2021-12-29 06:15] LABS: Anisocytosis Moderate; HCT 45.8 % (39.0-53.0); HGB 14.2 gm/dL (13.0-17.5); Hypochromasia Marked; MCH 30.9 pg (25.0-35.0); MCHC 31.1 g/dL (31.0-37.0); MCV 99.3 fL (80.0-100.0); Macrocytosis Moderate; Mean Platelet Volume 8.9; Platelet Count 221 k/uL (150-450); RBC 4.61 m/uL (4.30-5.90); RDW 22.6 % (11.5-15.5); WBC 8.1 k/uL (3.8-10.6)
[2021-12-29 06:29] LABS: African American GFR (CKD) >90 (>60 ml/min/1.73 sqM); Anion Gap 5 mmol/L; Blood Urea Nitrogen 30 mg/dL (9-20); Calcium 8.7 mg/dL (8.4-10.2); Carbon Dioxide 35 mmol/L (22-30); Chloride 96 mmol/L (98-107); Glucose 141 mg/dL (74-99); Non-African American GFR(CKD) >90 (>60 ml/min/1.73 sqM); Potassium 4.5 mmol/L (3.5-5.1); Sodium 136 mmol/L (137-145)
[2021-12-29] MEDS: SYMBICORT 160-4.5 MCG INHALER INHALATION SCH ×2 (07:59→20:10)
[2021-12-29] MEDS: IPRATROPIUM-ALBUTEROL 3 ML NEB INHALATION SCH ×4 (07:59→20:10)
--- NOTE | 2021-12-29 08:56 | XR ---
EXAMINATION TYPE: XR chest 1V portable DATE OF EXAM: 12/29/2021 COMPARISON: Chest x-ray 12/28/2021 HISTORY: Hypoxemia, abnormal chest x-ray TECHNIQUE: Single frontal view of the chest is obtained. FINDINGS: There is some improvement in lung volume, aeration as compared to prior exam. Cardiac medi astinal silhouette is stable accounting for differences in technique. There is no evident pneumothor ax or pleural effusion. There are overlying leads. Bones are unchanged. Persistent basilar scarring, atelectatic changes are suspected. IMPRESSION: There is some improvement in aeration.
[2021-12-29] MEDS: FUROSEMIDE 10 MG/ML 4 ML VIAL IV SCH ×2 (11:18→21:05)
[2021-12-29] MEDS: FAMOTIDINE 20 MG TAB PO SCH ×2 (11:18→21:05)
[2021-12-29] MEDS: ASPIRIN 81 MG PO SCH (11:18)
[2021-12-29] MEDS: ATORVASTATIN 40 MG TAB PO SCH (11:18)
[2021-12-29] MEDS: HEPARIN SODIUM,PORCINE/PF 5,000 UNIT/0.5 ML SYRINGE SQ SCH ×2 (11:19→21:05)
[2021-12-29] MEDS: polyethylene glycoL 3350 17 GM POWD.PACK PO SCH (11:19)
--- NOTE | 2021-12-29 13:12 | P.PN ---
Subjective Progress Note Date: 12/29/21 This is a pleasant 46-year-old male patient with a history of Down syndrome, diastolic congestive heart failure, recurrent aspiration pneumonias, obstructive sleep apnea intolerant to CPAP, hyperlipidemia, gastroesophageal reflux disease. He follows with Dr. Quintanilla as his primary care provider. He was recently here for almost a month for multifactorial issues regarding shortness of breath secondary to diastolic congestive heart failure aspiration pneumonia and hypoventilation syndrome. He was discharged on 11/13/2021. He was brought back to the emergency room yesterday with increasing shortness of breath. X-ray showed progressive patchy perihilar and basilar infiltrates compared to 11/11/2021. CT angiogram revealed no evidence of pulmonary embolism. There is moderate pulmonary interstitial edema in the mid and lower lung colon. Previous echocardiogram revealed preserved left ventricular systolic function with ejection fraction 50-55%. Lower extremities negative for DVTs. White cou nt 11.7. Hemoglobin 14.8. INR 1.2. D-dimer 3.44. Sodium 134. Potassium 3.9. Chloride 87. Bicarb 42. BUN 18. Creatinine 0.61. Glucose 143. Troponins 0.40, 0.28, 0.25. ProBNP 3290. Urinalysis clean. Chavira virus by PCR not detected. Pro-calcitonin pending. He's been initiated on DuoNeb inhalations, Symbicort. Lasix 40 mg by mouth every 8 hours. Aldactone. Progress note dated 12/17/2021. 46-year-old male with history of down syndrome, diastolic CHF, recurrent aspiration pneumonia, sleep apnea, hyperlipidemia, and GERD. His primary care physician is Dr. Quintanilla. He was recently here for almost a month for shortness of breath, secondary to CHF. At that time, he was also thought to have aspiration pneumonia. He was finally discharged on 11/13/2021. He was brought back to the emergency room, 2 days ago, with increasing shortness of breath, and diffuse bilateral infiltrates. There was no pulmonary embolism on CT angiogram. Currently, the patient is on AIRVO, at 60 L/m with an FiO2 of 90%. He's not receiving any IV fluids. His nurse held his nitroglycerin this morning, because his blood pressure was a bit soft. Labs today include a white count of 7.2, hemoglobin 15.8, hematocrit 51.7, and a platelet count of 188,000. Sodium was 138, potassium 3.9, chloride 99, CO2 37, anion gap 12, BUN 13, creatinine 0.57. AST was 164 and ALT was 591. Troponins were 0.282 and 0.255. Urine was negative. Chest x-ray was consistent with cardiomegaly, and pulmonary vascular congestion/CHF. On 12/18/2021 patient seen in follow-up on selective care unit, he is currently on Airvo at 60 L and FiO2 of 92% and his pulse ox is greater than 97% and this can probably be weaned further down, he is awake and alert, oriented 3, breathing comfortably he is resting in bed watching TV. He is pleasant and cooperative. he remains on oral Lasix at 40 mg every 12 hours, he is sofia ntaining negative fluid balance of -625 mL over the last 24 hours. Chest x-ray findings were consistent with acute exacerbation of CHF with known diastolic dysfunction, his CTA chest was negative for evidence of pulmonary embolism. It did show moderate pulmonary interstitial edema and mid and the lower lung colon. Patient continues on nebulized bronchodilators, he remains on Symbicort. Patient has no significant edema in his bilateral lower legs. Dopplers of the lower extremities were limited due to patient's body habitus, but within the limitation of the study there was no sonographic findings of DVT in the lower extremities. Today's labs have been reviewed, his white blood cell, 7.2, hemoglobin is 15.8, sodium is 138, potassium 3.9, chloride is 89, CO2 is 37, BUN 13 creatinine 0.57. Patient tested negative for COVID-19, influenza A and B and RSV. On 12/19/2021 patient seen in follow-up on selective care unit, he remains on high flow oxygen, per Airvo with 55 L and FiO2 of 85% and his pulse ox is 88- 94%. Patient is sleepy this morning however she arouses to voice, he answers simple questions, he feels very fatigued. Nursing reports that the patient does not sleep well at night and she was up until 4:00 in the morning area. Has been extensively diuresed, his IV Lasix has been switched to oral Lasix 40 mg twice daily however he appears to be dehydrated on clinical exam. His oral intake is fair, his appetite is good other than this morning she only consumed 25% of his meal because of being tired. Lung sounds are positive for bibasilar crackles, no rhonchi or wheezes, no significant edema involving his bilateral lower extremities, today's chest x-ray has been reviewed showing lung volumes, patchy bibasilar atelectasis or scarring, cardiomegaly. Today's labs have been reviewed showing white blood cell count is 7.8, hemoglobin of 15.9, sodium is 136, potassium is 4.5, chloride is 90, CO2 is 43, B1 is 21, creatinine 0.7, his LFTs are improved, AST is now within normal limits at 37, ALT is 252, and alkaline phosphatase is 93, his pro-calcitonin level came back negative at 0.12. Patient was tested negative for COVID-19 2, tested negative for influenza A and B, and RSV. On 12/20/2021 patient seen in follow-up on selective care unit, he is awake and alert, in no acute distress, he continues on Airvo at 55 L and FiO2 of 85% is pulse ox is around 96%, breathing comfortably, lung sounds are diminished, clear no crackles, no rhonchi he continues on oral Lasix 40 mg once daily and he is in -1.5 L net fluid balance over the last 24 hours, he continues on Aldactone 12.5 mg daily, and yesterday we gave the patient 2 doses of oral Diamox 250 mg twice daily. Today's labs including electrolytes and renal profile are still pending, vital signs have been stable overnight, no fever or chills, occasional cough, no phlegm production. No complaints of chest discomfort. His yesterday's chest x- ray showed low lung volumes, no pneumothorax or pleural effusion. Patchy bilateral airspace disease. On 12/21/2021 patient seen in follow-up on selective care unit, he is awake and alert, in no acute distress, remains on Airvo at 50 L and FiO2 of 80%, and his pulse ox is 92%, he is breathing quite comfortably, he remains on once daily dose of oral Lasix 40 mg, remains on Aldactone, he is in negative 1.3 L net fluid balance over the last 24 hours. Today's chest x-ray showing patchy basilar densities, and stable cardiomegaly. Today's labs have been reviewed, sodium is 137, potassium is 4.3, chloride is 98, CO2 is 37, BUN is 20 creatinine 0.72. Patient denies any worsening dyspnea, cough or chest discomfort. On 12/22/2021 rapid response team was called in view of worsening hypoxia, patient has been on Airvo at 50 L and FiO2 of 80%, and he was noted to have O2 saturations in the low 80s, and subsequently his Airvo flow was increased to 60 L and FiO2 of 90% and patient was also placed on in the 100% nonrebreather mask and continued to have low O2 saturations at around 83%. Patient is awake, she still refuses to wear the BiPAP, he is crying, but he is responding appropriately, does not appear to be in any acute distress. He had been on oral dose Lasix once daily, on Aldactone and once daily dose of Diamox 250 mg. Patient has been maintaining negative fluid balance over the last several days, and the last 24 hours he is in -1044 mL negative net fluid balance, today's chest x-ray showing cardiomegaly, low lung volumes, no evident pneumothorax, tidal patchy attenuation possibly related to atelectasis or interstitial edema. Patient was given an additional dose of IV Lasix 40 mg this morning, Bose catheter has been inserted and patient has put out over a liter in urine output. Subsequently he was transferred to the intensive care unit for closer monitoring, he remains awake and alert, denies any acute distress, mildly conges alfred cough, no phlegm production. He is watching TV, he is comfortable. Denies any chest discomfort. His had no fever or chills overnight, he starting to diurese. He still refuses to wear BiPAP, with deep breathing has pulse ox comes up to 96%. He will be given an incentive spirometer. Today's labs are still pending. Patient has been on GI and DVT prophylaxis with oral Pepcid and heparin 5000 units every 12 hours subcu. His d-dimer was elevated on admission, but CTA chest was completed showing no evidence of pulmonary embolism, lower extremity Dopplers were negative for DVT in the limitation of the study. On 12/23/2021, I'm seeing the patient for a follow-up. The patient remains on Airvo 60 L an FiO2 of 90%. The patient is able to maintain a pulse ox of above 88%. No signs of any significant respiratory distress. No significant cough sputum production chest vessel wheezing. The patient is having some oral dryness. The input output balance has been negative in the order of 1044 mL over the past 24 hours. The patient remains on IV Lasix 40 mg IV push every 12 hours and the patient is also on Aldactone 12.5 mg by mouth daily and the patient is also on Diamox 250 mg IV every 12 hours. The electrolytes from today shows a sodium of 136, serum bicarbonate 40, BUN is 25 with creatinine 0.8. Potassium level is at 4.0. The white cell count is at 9.7 with a hemoglobin of 15.9 and a platelet count of 206. The chest x-ray from today shows interstitial edema/CHF and cardiomegaly. The blood gases obtained yesterday showed a pH of 7.33 with an episode of 82 and this is consistent with an acute on top of chronic hypercapnic respiratory failure. The patient's pO2 was at 59 and this was done while the patient on Airvo 60 L an FiO2 of 90%. 12/24/2021, I'm seeing the patient for a follow-up. He is comfortable. Upon doing some breathing exercises and deep breathing, the patient is able to bring up his oxygen saturation up to 97%. This further supports presence of significant amount of atelectasis in lung bases. Based on that, I made recommendations to set up this patient on a chair and be more aggressive with his pulmonary toileting. He remains on Airvo 60 L with an FiO2 of 90%. The patient is still on Lasix and Diamox. Overall fluid balance is -1.98 his over the past 24 hours. Serum bicarbonate 41. BUN is at 29 with a creatinine of 0.89. He is doing well. He denies having any respiratory distress. No significant cough sputum production chest that is so wheezing. He is tolerating his diet. No other issues otherwise for now. 12/25/2021, seeing the patient for a follow-up. Patient is doing well. Remains on Airvo 60 L with an FiO2 of 90%. Continues to undergo aggressive diuresis and aggressive pulmonary toileting. The patient was provided incentive spirometer. The patient was also most on a chair when he was able to breathe more co mfortably. Overall fluid balance has been negative at least 1 L over the past 24 hours and the patient is headed towards a negative fluid balance over the next 24 hours. His serum bicarbonate 40. BUN is at 29 with a creatinine of 0.89. Meanwhile, the patient is still on Lasix 40 mg IV every 12 hours. The patient is also receiving Diamox. The patient on Aldactone. Potassium level is at 3.6 and this being replaced per protocol. Oxidation is improved and the patient's pulse is 97% on above-mentioned Airvo setting. He is awake. He is alert. He is not showing any signs of any respiratory distress. 12/26/2021, I'm seeing the patient for a follow-up. The patient remains on Airvo 60 L with an FiO2 of 75%. The patient was being diuresed with IV Lasix and as of yesterday, the patient developed a diminished urine output. He also developed an acute kidney injury in the creatinine was up to 1.5 from today. Meanwhile, his net fluid balance is still negative around 2.2 L over the past 24 hours. Urine output slowed down initially and then it picked up again. His weight is down 219 kg. Based on all this, I decided to stop the diuretics for 24 hours. Give the patient 500 mL of bolus. He is still the same condition. His chest x-ray still showing pulmonary edema. No nausea. No vomiting. No diarrhea. No abdominal pain. No change in his mentation above and beyond his baseline. No other significant events otherwise for now.. He is using incentive spirometer. Was also doing aggressive pulmonary toileting on this patient. 12/27/2021, I'm seeing the patient for a follow-up. The patient was taken off the diuretic as the patient had a rise in the creatinine up to 1.5. On today's evaluation, he is still negative fluid balance of 270 mL in the creatinine is down to 0.9. He is still on Airvo with 15 L with an FiO2 of 70%. I tried to drop down further and is able settings and the patient desaturated and his pulse ox dropped down to the low 80s. His chest x-ray remains unchanged and there is increased vessel markings and pulmonary edema still present. Lasix will be started today and a dose of Lasix was given this morning 40 mg IV push. Doing well. No new complaints. Using incentive spirometer. Aggressive pulmonary toileting is being done. No other significant events overnight otherwise for now. On his blood work, the patient has a white cell count of 8.6 with a hemoglobin 14.8. BUN is at 49 with a creatinine of 0.9 and sodium level is at 133 and a serum bicarb is at 35. 12/28/2021, I'm seeing the patient for a follow-up. The patient is still on Airvo. Overnight, the patient started desaturating and the patient was placed back again on high flow oxygen 6 L an FiO2 of 80% this morning. Renal function is normalized and the creatinine is down to 0.67 and the patient remains in a negative fluid balance. Overall fluid balance is -2.6 L over the past 24 hours. I strictly believe that the patient is hypoventilating and the patient has si gnificant atelectatic changes in lung bases as the patient is able to generate a pulse ox of 97% with few deep breaths. The chest x-ray remains unchanged. Renal function is normalized. Based on that, I'm resuming diuretics again on this patient. He is awake and alert. He is interactive. Electrodes are stable. Serum bicarb is at 35. On today's evaluation to be an is 27 with a creatinine of 0.6. The white cell count is 7.9. He is afebrile. He is hemodynamically stable at this point in time. 12/29/2021, I'm seeing the patient for a follow-up. The patient is doing well and currently is down to 5 L of oxygen by nasal cannula. IV Lasix was restarted yesterday and the patient developed a negative fluid balance of 2.6 L over the past 24 hours. Doing well. No specific complaints. No respiratory distress. BUN is at 30 with a creatinine of 0.7 and sodium level is at 136. No chest pain. Chest x-ray showing improvement in interstitial edema volume status. No other significant events overnight. Renal function is stable for now. The patient recovers from acute kidney injury. Objective - Vital Signs Vital signs: Vital Signs Temp 98.5 F 12/29/21 08:00 Pulse 76 12/29/21 11:00 Resp 20 12/29/21 11:00 BP 104/55 12/29/21 11:00 Pulse Ox 95 12/29/21 11:00 Intake & Output 12/28/21 12/29/21 12/29/21 18:59 06:59 18:59 Intake Total 490 750 150 Output Total 870 1500 405 Balance -380 -750 -255 Weight 118 kg Intake: Oral 240 200 150 Tube Feeding 250 550 Output: Urine 870 1500 405 Other: Voiding Method Indwelling Catheter Indwelling Catheter Indwelling Catheter # Voids 0 1 # Bowel Movements 1 - Exam GENERAL EXAM: Awake and alert, 45-year-old male with typical features of Down syndrome on currently resting comfortably in bed, currently on 5 L of oxygen nasal cannula HEAD: Normocephalic/atraumatic. EYES: Normal reaction of pupils, equal size. Conjunctiva pink, sclera white. NOSE: Clear with pink turbinates. THROAT: No erythema or exudates. NECK: No masses, no JVD, no thyroid enlargement, no adenopathy. CHEST: No chest wall deformity. Symmetrical expansion. LUNGS: Equal air entry with diminished breath sounds, bibasilar crackles CVS: Regular rate and rhythm, normal S1 and S2, no gallops, no murmurs, no rubs ABDOMEN: Soft, nontender. No hepatosplenomegaly, normal bowel sounds, no guarding or rigidity. EXTREMITIES: No clubbing, no lower extremity edema no cyanosis, 2+ pulses and upper and lower extremities. MUSCULOSKELETAL: Muscle strength and tone normal. SPINE: No scoliosis or deformity SKIN: No rashes CENTRAL NERVOUS SYSTEM: Awake and alert, No focal deficits, tone is normal in all 4 extremities. - Labs CBC & Chem 7: 12/29/21 05:58 12/29/21 05:58 Labs: Abnormal Lab Results - Last 24 Hours (Table) 12/29/21 12/29/21 Range/Units 05:58 05:58 RDW 22.6 H (11.5-15.5) % Sodium 136 L (137-145) mmol/L Chloride 96 L (98-107) mmol/L Carbon Dioxide 35 H (22-30) mmol/L BUN 30 H (9-20) mg/dL Glucose 141 H (74-99) mg/dL Assessment and Plan Plan: #1. Acute hypoxic respiratory failure secondary to acute exacerbation of diastolic CHF. COVID-19 PCR, influenza A and B and RSV were negative. On 12/22/2021 patient was noted to have worsening hypoxia, rapid response team was called, patient is currently on 5 L of oxygen by nasal cannula. The patient on Lasix and the patient is on a negative fluid balance of 2.6 L over the past 24 hours with subsequent improvement and oxygenation. Chest x-rays also showing improvement in the volume status liters #2. Recent hospitalization for acute exacerbation of CHF with the possibility of aspiration related pneumonia and acute lung injury/ARDS is thought to be less likely. #3. Elevated troponin levels, likely related to acute CHF, please refer to cardiology consultation #4. Obstructive sleep apnea intolerant to CPAP #5. Morbid obesity with BMI 43.7 kg/m #6. History of Down syndrome #7. History of hyperlipidemia #8. History of obstructive sleep apnea, intolerant to CPAP #9. Obesity hypoventilation syndrome #10. Elevated d-dimer, without CT evidence of pulmonary embolism or DVT on lower extremity Dopplers #11 acute kidney injury in the creatinine is up to 1.5, likely secondary diuresis. Diuretics were placed on hold and the creatinine is down to 0 point on today's evaluation. Plan: Put the patient on 5 L nasal cannula high flow Continue Lasix 40 mg IV every 12 hours Monitor urine output Monitor renal function Maintenance saturation above 90% Continue using incentive spirometer Sit up this patient on a chair Provide incentive spirometer Transfer this patient out of the intensive care unit
--- NOTE | 2021-12-29 13:39 | P.PN ---
Subjective Progress Note Date: 12/29/21 This is a pleasant 46 years old male with past medical history of Asthma, GERD/Reflux, Hyperlipidemia, Memory Impairment, Down syndrome/IQ of about 74, chronic feet issue d/t gout, SHARRI but pt unable to tolerate CPAP Patient is poor historian, sitting in bed eating his breakfast with no difficulty on high flow nasal cannula, he can tell me he is in the hospital but he could not recognize which hospital, the date or the name of the president. When I ask her most recently came to the hospital he points to his right forearm block stating it is because of this. However patient states that his breathing is better now and he denies chest pain or abdominal pain or any other complaints He denies smoking, alcohol or illicit drugs. Objective - Vital Signs Vital signs: Vital Signs Temp 98.8 F 12/29/21 04:00 Pulse 71 12/29/21 07:00 Resp 20 12/29/21 07:00 BP 113/61 12/29/21 07:00 Pulse Ox 94 L 12/29/21 08:00 Intake & Output 12/28/21 12/29/21 12/29/21 18:59 06:59 18:59 Intake Total 490 750 150 Output Total 870 1500 80 Balance -380 -750 70 Weight 118 kg Intake: Oral 240 200 150 Tube Feeding 250 550 Output: Urine 870 1500 80 Other: Voiding Method Indwelling Catheter Indwelling Catheter # Voids 0 1 # Bowel Movements 1 - Exam -GENERAL: The patient is alert and oriented x3, not in any acute distress. Obese, generally tired, Mentally challenged. HEENT: Pupils are round and equally reacting to light. EOMI. No scleral icterus. No conjunctival pallor. Normocephalic, atraumatic. No pharyngeal erythema. No thyromegaly. CARDIOVASCULAR: S1 and S2 present. No murmurs, rubs, or gallops. -PULMONARY: Chest is clear to auscultation, no wheezing or crackles. Mildly tachypneic ABDOMEN: Soft, nontender, nondistended, normoactive bowel sounds. No palpable organomegaly. MUSCULOSKELETAL: No joint swelling or deformity. EXTREMITIES: No cyanosis, clubbing, or pedal edema. NEUROLOGICAL: Gross neurological examination did not reveal any focal deficits. SKIN: No rashes. no petechiae. - Labs CBC & Chem 7: 12/29/21 05:58 12/29/21 05:58 Labs: Abnormal Lab Results - Last 24 Hours (Table) 12/29/21 12/29/21 Range/Units 05:58 05:58 RDW 22.6 H (11.5-15.5) % Sodium 136 L (137-145) mmol/L Chloride 96 L (98-107) mmol/L Carbon Dioxide 35 H (22-30) mmol/L BUN 30 H (9-20) mg/dL Glucose 141 H (74-99) mg/dL Assessment and Plan Assessment: Acute hypoxic respiratory failure secondary to diastolic CHF exacerbation. Requiring high flow oxygen via Airvo. Patient is refusing to wear BiPAP. Acute kidney injury likely prerenal due to diuretics. Elevated troponin likely demand ischemia elevated d-dimer with no evidence of PE or DVT Elevated liver enzymes , improving CTA of the chest showing no pulmonary embolism, moderate pulmonary interstitial edema in the mid and lower lung colon Memory problem most likely related to yearly Alzheimer's dementia, given his history of Down syndrome. Down syndrome History of asthma History of GERD History of memory impairment History of obstructive sleep apnea, not on CPAP, cannot tolerate. History of gout Plan: This is a pleasant 46 years old male with Down syndrome who presents with acute CHF started back on Lasix 40 mg IV twice a day. aldactone and diamox on hold. Monitor renal function. Continue with aspirin Labs and medication were reviewed..Monitor lytes and vitals. DVT and GI prophylaxis. DVT prophylaxis: Subcutaneous heparin GI Prophylaxis: Pepcid PT/OT: Pending Prognosis is guarded
[2021-12-29] MEDS: acetaZOLAMIDE 250 MG TAB PO SCH (16:04)
[2021-12-30] MEDS: IPRATROPIUM-ALBUTEROL 3 ML NEB INHALATION SCH ×4 (07:52→20:19)
[2021-12-30] MEDS: SYMBICORT 160-4.5 MCG INHALER INHALATION SCH ×2 (07:52→20:19)
[2021-12-30] MEDS: polyethylene glycoL 3350 17 GM POWD.PACK PO SCH (09:11)
[2021-12-30] MEDS: FUROSEMIDE 10 MG/ML 4 ML VIAL IV SCH ×2 (09:11→20:12)
[2021-12-30] MEDS: ATORVASTATIN 40 MG TAB PO SCH (09:11)
[2021-12-30] MEDS: FAMOTIDINE 20 MG TAB PO SCH ×2 (09:11→20:12)
[2021-12-30] MEDS: HEPARIN SODIUM,PORCINE/PF 5,000 UNIT/0.5 ML SYRINGE SQ SCH ×2 (09:11→20:12)
[2021-12-30] MEDS: ASPIRIN 81 MG PO SCH (09:11)
--- NOTE | 2021-12-30 13:17 | P.PN ---
<Capri Hillman - Last Filed: 12/30/21 13:02> Subjective Progress Note Date: 12/30/21 This is a pleasant 46-year-old male patient with a history of Down syndrome, diastolic congestive heart failure, recurrent aspiration pneumonias, obstructive sleep apnea intolerant to CPAP, hyperlipidemia, gastroesophageal reflux disease. He follows with Dr. Quintanilla as his primary care provider. He was recently here for almost a month for multifactorial issues regarding shortness of breath secondary to diastolic congestive heart failure aspiration pneumonia and hypoventilation syndrome. He was discharged on 11/13/2021. He was brought back to the emergency room yesterday with increasing shortness of breath. X-ray showed progressive patchy perihilar and basilar infiltrates compared to 11/11/2021. CT angiogram revealed no evidence of pulmonary embolism. There is moderate pulmonary interstitial edema in the mid and lower lung colon. Previous echocardiogram revealed preserved left ventricular systolic function with ejection fraction 50-55%. Lower extremities negative for DVTs. White count 11.7. Hemoglobin 14.8. INR 1.2. D-dimer 3.44. Sodium 134. Potassium 3.9. Chloride 87. Bicarb 42. BUN 18. Creatinine 0.61. Glucose 143. Troponins 0.40, 0.28, 0.25. ProBNP 3290. Urinalysis clean. Chavira virus by PCR not detected. Pro-calcitonin pending. He's been initiated on DuoNeb inhalations, Symbicort. Lasix 40 mg by mouth every 8 hours. Aldactone. Progress note dated 12/17/2021. 46-year-old male with history of down syndrome, diastolic CHF, recurrent aspiration pneumonia, sleep apnea, hyperlipidemia, and GERD. His primary care physician is Dr. Quintanilla. He was recently here for almost a month for shortness of breath, secondary to CHF. At that time, he was also thought to have aspiration pneumonia. He was finally discharged on 11/13/2021. He was brought back to the emergency room, 2 days ago, with increasing shortness of breath, and diffuse bilateral infiltrates. There was no pulmonary embolism on CT angiogram. Currently, the patient is on AIRVO, at 60 L/m with an FiO2 of 90%. He's not re ceiving any IV fluids. His nurse held his nitroglycerin this morning, because his blood pressure was a bit soft. Labs today include a white count of 7.2, hemoglobin 15.8, hematocrit 51.7, and a platelet count of 188,000. Sodium was 138, potassium 3.9, chloride 99, CO2 37, anion gap 12, BUN 13, creatinine 0.57. AST was 164 and ALT was 591. Troponins were 0.282 and 0.255. Urine was negative. Chest x-ray was consistent with cardiomegaly, and pulmonary vascular congestion/CHF. On 12/18/2021 patient seen in follow-up on selective care unit, he is currently on Airvo at 60 L and FiO2 of 92% and his pulse ox is greater than 97% and this can probably be weaned further down, he is awake and alert, oriented 3, breathing comfortably he is resting in bed watching TV. He is pleasant and cooperative. he remains on oral Lasix at 40 mg every 12 hours, he is maintaining negative fluid balance of -625 mL over the last 24 hours. Chest x- ray findings were consistent with acute exacerbation of CHF with known diastolic dysfunction, his CTA chest was negative for evidence of pulmonary embolism. It did show moderate pulmonary interstitial edema and mid and the lower lung colon. Patient continues on nebulized bronchodilators, he remains on Symbicort. Patient has no significant edema in his bilateral lower legs. Dopplers of the lower extremities were limited due to patient's body habitus, but within the limitation of the study there was no sonographic findings of DVT in the lower extremities. Today's labs have been reviewed, his white blood cell, 7.2, hemoglobin is 15.8, sodium is 138, potassium 3.9, chloride is 89, CO2 is 37, BUN 13 creatinine 0.57. Patient tested negative for COVID-19, influenza A and B and RSV. On 12/19/2021 patient seen in follow-up on selective care unit, he remains on high flow oxygen, per Airvo with 55 L and FiO2 of 85% and his pulse ox is 88- 94%. Patient is sleepy this morning however she arouses to voice, he answers simple questions, he feels very fatigued. Nursing reports that the patient does not sleep well at night and she was up until 4:00 in the morning area. Has been extensively diuresed, his IV Lasix has been switched to oral Lasix 40 mg twice daily however he appears to be dehydrated on clinical exam. His oral intake is fair, his appetite is good other than this morning she only consumed 25% of his meal because of being tired. Lung sounds are positive for bibasilar crackles, no rhonchi or wheezes, no significant edema involving his bilateral lower extremities, today's chest x-ray has been reviewed showing lung volumes, patchy bibasilar atelectasis or scarring, cardiomegaly. Today's labs have been reviewed showing white blood cell count is 7.8, hemoglobin of 15.9, sodium is 136, potassium is 4.5, chloride is 90, CO2 is 43, B1 is 21, creatinine 0.7, his LFTs are improved, AST is now within normal limits at 37, ALT is 252, and alkaline phosphatase is 93, his pro-calcitonin level came back negative at 0.12. Patient was tested negative for COVID-19 2, tested negative for influenza A and B, and RSV. On 12/20/2021 patient seen in follow-up on selective care unit, he is awake and alert, in no acute distress, he continues on Airvo at 55 L and FiO2 of 85% is pulse ox is around 96%, breathing comfortably, lung sounds are diminished, clear no crackles, no rhonchi he continues on oral Lasix 40 mg once daily and he is in -1.5 L net fluid balance over the last 24 hours, he continues on Aldactone 12.5 mg daily, and yesterday we gave the patient 2 doses of oral Diamox 250 mg twice daily. Today's labs including electrolytes and renal profile are still pending, vital signs have been stable overnight, no fever or chills, occasional cough, no phlegm production. No complaints of chest discomfort. His yesterday's chest x- ray showed low lung volumes, no pneumothorax or pleural effusion. Patchy bilateral airspace disease. On 12/21/2021 patient seen in follow-up on selective care unit, he is awake and alert, in no acute distress, remains on Airvo at 50 L and FiO2 of 80%, and his pulse ox is 92%, he is breathing quite comfortably, he remains on once daily dose of oral Lasix 40 mg, remains on Aldactone, he is in negative 1.3 L net fluid balance over the last 24 hours. Today's chest x-ray showing patchy bas ilar densities, and stable cardiomegaly. Today's labs have been reviewed, sodium is 137, potassium is 4.3, chloride is 98, CO2 is 37, BUN is 20 creatinine 0.72. Patient denies any worsening dyspnea, cough or chest discomfort. On 12/22/2021 rapid response team was called in view of worsening hypoxia, patient has been on Airvo at 50 L and FiO2 of 80%, and he was noted to have O2 saturations in the low 80s, and subsequently his Airvo flow was increased to 60 L and FiO2 of 90% and patient was also placed on in the 100% nonrebreather mask and continued to have low O2 saturations at around 83%. Patient is awake, she still refuses to wear the BiPAP, he is crying, but he is responding appropriat alejo, does not appear to be in any acute distress. He had been on oral dose Lasix once daily, on Aldactone and once daily dose of Diamox 250 mg. Patient has been maintaining negative fluid balance over the last several days, and the last 24 hours he is in -1044 mL negative net fluid balance, today's chest x-ray showing cardiomegaly, low lung volumes, no evident pneumothorax, tidal patchy attenuation possibly related to atelectasis or interstitial edema. Patient was given an additional dose of IV Lasix 40 mg this morning, Bose catheter has been inserted and patient has put out over a liter in urine output. Subsequently he was transferred to the intensive care unit for closer monitoring, he remains awake and alert, denies any acute distress, mildly congested cough, no phlegm production. He is watching TV, he is comfortable. Denies any chest discomfort. His had no fever or chills overnight, he starting to diurese. He still refuses to wear BiPAP, with deep breathing has pulse ox comes up to 96%. He will be given an incentive spirometer. Today's labs are still pending. Patient has been on GI and DVT prophylaxis with oral Pepcid and heparin 5000 units every 12 hours subcu. His d-dimer was elevated on admission, but CTA chest was completed showing no evidence of pulmonary embolism, lower extremity Dopplers were negative for DVT in the limitation of the study. On 12/23/2021, I'm seeing the patient for a follow-up. The patient remains on Airvo 60 L an FiO2 of 90%. The patient is able to maintain a pulse ox of above 88%. No signs of any significant respiratory distress. No significant cough sputum production chest vessel wheezing. The patient is having some oral d ryness. The input output balance has been negative in the order of 1044 mL over the past 24 hours. The patient remains on IV Lasix 40 mg IV push every 12 hours and the patient is also on Aldactone 12.5 mg by mouth daily and the patient is also on Diamox 250 mg IV every 12 hours. The electrolytes from today shows a sodium of 136, serum bicarbonate 40, BUN is 25 with creatinine 0.8. Potassium level is at 4.0. The white cell count is at 9.7 with a hemoglobin of 15.9 and a platelet count of 206. The chest x-ray from today shows interstitial edema/CHF and cardiomegaly. The blood gases obtained yesterday showed a pH of 7.33 with an episode of 82 and this is consistent with an acute on top of chronic hypercapnic respiratory failure. The patient's pO2 was at 59 and this was done while the patient on Airvo 60 L an FiO2 of 90%. 12/24/2021, I'm seeing the patient for a follow-up. He is comfortable. Upon doing some breathing exercises and deep breathing, the patient is able to bring up his oxygen saturation up to 97%. This further supports presence of significant amount of atelectasis in lung bases. Based on that, I made recommendations to set up this patient on a chair and be more aggressive with his pulmonary toileting. He remains on Airvo 60 L with an FiO2 of 90%. The patient is still on Lasix and Diamox. Overall fluid balance is -1.98 his over the past 24 hours. Serum bicarbonate 41. BUN is at 29 with a creatinine of 0.89. He is doing well. He denies having any respiratory distress. No significant cough sputum production chest that is so wheezing. He is tolerating his diet. No other issues otherwise for now. 12/25/2021, seeing the patient for a follow-up. Patient is doing well. Remains on Airvo 60 L with an FiO2 of 90%. Continues to undergo aggressive diuresis and aggressive pulmonary toileting. The patient was provided incentive spirometer. The patient was also most on a chair when he was able to breathe more comfortably. Overall fluid balance has been negative at least 1 L over the past 24 hours and the patient is headed towards a negative fluid balance over the next 24 hours. His serum bicarbonate 40. BUN is at 29 with a creatinine of 0.89. Meanwhile, the patient is still on Lasix 40 mg IV every 12 hours. The patient is also receiving Diamox. The patient on Aldactone. Potassium level is at 3.6 and this being replaced per protocol. Oxidation is improved and the patient's pulse is 97% on above-mentioned Airvo setting. He is awake. He is alert. He is not showing any signs of any respiratory distress. 12/26/2021, I'm seeing the patient for a follow-up. The patient remains on Airvo 60 L with an FiO2 of 75%. The patient was being diuresed with IV Lasix and as of yesterday, the patient developed a diminished urine output. He also developed an acute kidney injury in the creatinine was up to 1.5 from today. Meanwhile, his net fluid balance is still negative around 2.2 L over the past 24 hours. Urine output slowed down initially and then it picked up again. His weight is down 219 kg. Based on all this, I decided to stop the diuretics for 24 hours. Give the patient 500 mL of bolus. He is still the same condition. His chest x-ray still showing pulmonary edema. No nausea. No vomiting. No diarrhea. No abdominal pain. No change in his mentation above and beyond his baseline. No other significant events otherwise for now.. He is using incentive spirometer. 12/27/2021, I'm seeing the patient for a follow-up. The patient was taken off the diuretic as the patient had a rise in the creatinine up to 1.5. On today's evaluation, he is still negative fluid balance of 270 mL in the creatinine is down to 0.9. He is still on Airvo with 15 L with an FiO2 of 70%. I tried to drop down further and is able settings and the patient desaturated and his pulse ox dropped down to the low 80s. His chest x-ray remains unchanged and there is increased vessel markings and pulmonary edema still present. Lasix will be started today and a dose of Lasix was given this morning 40 mg IV push. Doing well. No new complaints. Using incentive spirometer. Aggressive pulmonary toileting is being done. No other significant events overnight otherwise for now. On his blood work, the patient has a white cell count of 8.6 with a hemoglobin 14.8. BUN is at 49 with a creatinine of 0.9 and sodium level is at 133 and a serum bicarb is at 35. 12/28/2021, I'm seeing the patient for a follow-up. The patient is still on Airvo. Overnight, the patient started desaturating and the patient was placed back again on high flow oxygen 6 L an FiO2 of 80% this morning. Renal function is normalized and the creatinine is down to 0.67 and the patient remains in a negative fluid balance. Overall fluid balance is -2.6 L over the past 24 hours. I strictly believe that the patient is hypoventilating and the patient has significant atelectatic changes in lung bases as the patient is able to generate a pulse ox of 97% with few deep breaths. The chest x-ray remains unchanged. Renal function is normalized. Based on that, I'm resuming diuretics again on this patient. He is awake and alert. He is interactive. Electrodes are stable. Serum bicarb is at 35. On today's evaluation to be an is 27 with a creatinine of 0.6. The white cell count is 7.9. He is afebrile. He is hemodynamically stable at this point in time. 12/29/2021, I'm seeing the patient for a follow-up. The patient is doing well and currently is down to 5 L of oxygen by nasal cannula. IV Lasix was restarted yesterday and the patient developed a negative fluid balance of 2.6 L over the past 24 hours. Doing well. No specific complaints. No respiratory distress. BUN is at 30 with a creatinine of 0.7 and sodium level is at 136. No chest pain. Chest x-ray showing improvement in interstitial edema volume status. No other significant events overnight. Renal function is stable for now. The patient recovers from acute kidney injury. The patient is seen today 12/30/2021 in follow-up on the regular medical floor. He is currently sitting up in a chair at the bedside. Awake and alert in no acute distress. Watching TV. He is maintaining good O2 saturations in the 90s on 10 L high flow nasal cannula. He's been afebrile. Hemodynamically stable. No new labs today. No new chest x-ray today. He is continued on DuoNeb inh alations, Symbicort. Heparin for DVT prophylaxis. Objective - Vital Signs Vital signs: Vital Signs Temp 98.3 F 12/30/21 05:02 Pulse 70 12/30/21 11:22 Resp 22 12/30/21 11:22 BP 111/75 12/30/21 05:02 Pulse Ox 95 12/30/21 08:20 Intake & Output 12/29/21 12/30/21 12/30/21 18:59 06:59 18:59 Intake Total 800 711 Output Total 216 122 5419 Balance 15 511 -1000 Intake: Oral 800 711 Output: Urine 072 879 [id number] Other: Voiding Method Indwelling Catheter Indwelling Catheter Indwelling Catheter # Voids 1 # Bowel Movements 1 - Exam GENERAL EXAM: Awake and alert, 46-year-old male with typical features of Down syndrome, up in a chair at the bedside, currently on 10 L of oxygen nasal cannula HEAD: Normocephalic/atraumatic. EYES: Normal reaction of pupils, equal size. Conjunctiva pink, sclera white. NOSE: Clear with pink turbinates. THROAT: No erythema or exudates. NECK: No masses, no JVD, no thyroid enlargement, no adenopathy. CHEST: No chest wall deformity. Symmetrical expansion. LUNGS: Equal air entry with diminished breath sounds, bibasilar crackles CVS: Regular rate and rhythm, normal S1 and S2, no gallops, no murmurs, no rubs ABDOMEN: Soft, nontender. No hepatosplenomegaly, normal bowel sounds, no guarding or rigidity. EXTREMITIES: No clubbing, no lower extremity edema no cyanosis, 2+ pulses and upper and lower extremities. MUSCULOSKELETAL: Muscle strength and tone normal. SPINE: No scoliosis or deformity SKIN: No rashes CENTRAL NERVOUS SYSTEM: Awake and alert, No focal deficits, tone is normal in all 4 extremities. - Labs CBC & Chem 7: 12/29/21 05:58 12/29/21 05:58 Assessment and Plan Assessment: 1 Acute hypoxemic respiratory failure secondary to an acute exacerbation of diastolic congestive heart failure. Echocardiogram with preserved left ventricular systolic function. No evidence of pulmonary embolism. No clear evidence of aspiration pneumonia. 2 Acute hypercapnic respiratory failure secondary to obesity/hypoventilation syndrome 3 Obstructive sleep apnea intolerant to CPAP 4 Morbid obesity with a BMI of 43.7 kg per metered squared 5 History of Down syndrome 6 Hyperlipidemia 7 Recent hospitalization for nearly one month secondary to hypoxemic/hypercapnic respiratory failure with acute lung injury and diastolic congestive heart failure Plan: The patient was seen and evaluated Doing well and up in a chair at the bedside Currently on 10 L high flow nasal cannula Titrate the FiO2 as tolerated Continue IV diuretics Continue bronchodilators Aspiration precautions We will continue to follow I have personally seen and examined the patient, performed the documentation and the assessment and plan as written. Number of minutes spent on the visit: 10. <Christian Melara - Last Filed: 12/30/21 14:43> Objective - Vital Signs Vital signs: Vital Signs Temp 98.7 F 12/30/21 12:31 Pulse 65 12/30/21 12:31 Resp 20 12/30/21 12:31 BP 102/67 12/30/21 12:31 Pulse Ox 100 12/30/21 12:31 Intake & Output 12/29/21 12/30/21 12/30/21 18:59 06:59 18:59 Intake Total 800 711 Output Total 470 389 1147 Balance 15 511 -1000 Intake: Oral 800 711 Output: Urine 180 793 3800 Other: Voiding Method Indwelling Catheter Indwelling Catheter Indwelling Catheter # Voids 1 # Bowel Movements 1 - Labs CBC & Chem 7: 12/29/21 05:58 12/29/21 05:58 Assessment and Plan Assessment: I have personally seen and examined the patient and reviewed the documentation. I performed a joint evaluation with the nurse practitioner in this evaluation was done more than 20 minutes. I fully agree with the documentation above and the plan of care.
[2021-12-31] MEDS: polyethylene glycoL 3350 17 GM POWD.PACK PO SCH (07:29)
[2021-12-31] MEDS: HEPARIN SODIUM,PORCINE/PF 5,000 UNIT/0.5 ML SYRINGE SQ SCH ×2 (07:29→20:38)
[2021-12-31] MEDS: FUROSEMIDE 10 MG/ML 4 ML VIAL IV SCH ×3 (07:30→20:38)
[2021-12-31] MEDS: FAMOTIDINE 20 MG TAB PO SCH ×2 (07:30→20:38)
[2021-12-31] MEDS: ASPIRIN 81 MG PO SCH (07:31)
[2021-12-31] MEDS: ATORVASTATIN 40 MG TAB PO SCH (07:31)
[2021-12-31] MEDS: SYMBICORT 160-4.5 MCG INHALER INHALATION SCH ×2 (07:41→19:44)
[2021-12-31] MEDS: IPRATROPIUM-ALBUTEROL 3 ML NEB INHALATION SCH ×4 (07:41→19:44)
[2021-12-31 13:12] LABS: African American GFR (CKD) >90 (>60 ml/min/1.73 sqM); Anion Gap 2 mmol/L; Blood Urea Nitrogen 43 mg/dL (9-20); Calcium 8.4 mg/dL (8.4-10.2); Carbon Dioxide 36 mmol/L (22-30); Chloride 95 mmol/L (98-107); Glucose 82 mg/dL (74-99); Non-African American GFR(CKD) >90 (>60 ml/min/1.73 sqM); Potassium 4.4 mmol/L (3.5-5.1); Sodium 133 mmol/L (137-145)
[2021-12-31 13:16] LABS: Anisocytosis Moderate; Basophils # (A) 0.1 k/uL (0-0.2); Basophils % (A) 1 %; Eosinophils # (A) 0.2 k/uL (0-0.7); Eosinophils % (A) 2 %; HCT 47.5 % (39.0-53.0); HGB 14.5 gm/dL (13.0-17.5); Hypochromasia Marked; Lymphocytes # (A) 2.3 k/uL (1.0-4.8); Lymphocytes % (A) 29 %; MCH 30.6 pg (25.0-35.0); MCHC 30.6 g/dL (31.0-37.0); Macrocytosis Moderate; Mean Platelet Volume 9.3; Monocytes # (A) 0.6 k/uL (0-1.0); Monocytes % (A) 7 %; Neutrophils # (A) 4.6 k/uL (1.3-7.7); Neutrophils % (A) 58 %; Platelet Count 231 k/uL (150-450); RBC 4.75 m/uL (4.30-5.90); RDW 22.2 % (11.5-15.5)
--- NOTE | 2021-12-31 13:28 | P.PN ---
Subjective Progress Note Date: 12/31/21 This is a pleasant 46-year-old male patient with a history of Down syndrome, diastolic congestive heart failure, recurrent aspiration pneumonias, obstructive sleep apnea intolerant to CPAP, hyperlipidemia, gastroesophageal reflux disease. He follows with Dr. Quintanilla as his primary care provider. He was recently here for almost a month for multifactorial issues regarding shortness of breath secondary to diastolic congestive heart failure aspiration pneumonia and hypoventilation syndrome. He was discharged on 11/13/2021. He was brought back to the emergency room yesterday with increasing shortness of breath. X-ray showed progressive patchy perihilar and basilar infiltrates compared to 11/11/2021. CT angiogram revealed no evidence of pulmonary embolism. There is moderate pulmonary interstitial edema in the mid and lower lung colon. Previous echocardiogram revealed preserved left ventricular systolic function with ejection fraction 50-55%. Lower extremities negative for DVTs. White cou nt 11.7. Hemoglobin 14.8. INR 1.2. D-dimer 3.44. Sodium 134. Potassium 3.9. Chloride 87. Bicarb 42. BUN 18. Creatinine 0.61. Glucose 143. Troponins 0.40, 0.28, 0.25. ProBNP 3290. Urinalysis clean. Chavira virus by PCR not detected. Pro-calcitonin pending. He's been initiated on DuoNeb inhalations, Symbicort. Lasix 40 mg by mouth every 8 hours. Aldactone. Progress note dated 12/17/2021. 46-year-old male with history of down syndrome, diastolic CHF, recurrent aspiration pneumonia, sleep apnea, hyperlipidemia, and GERD. His primary care physician is Dr. Quintanilla. He was recently here for almost a month for shortness of breath, secondary to CHF. At that time, he was also thought to have aspiration pneumonia. He was finally discharged on 11/13/2021. He was brought back to the emergency room, 2 days ago, with increasing shortness of breath, and diffuse bilateral infiltrates. There was no pulmonary embolism on CT angiogram. Currently, the patient is on AIRVO, at 60 L/m with an FiO2 of 90%. He's not receiving any IV fluids. His nurse held his nitroglycerin this morning, because his blood pressure was a bit soft. Labs today include a white count of 7.2, hemoglobin 15.8, hematocrit 51.7, and a platelet count of 188,000. Sodium was 138, potassium 3.9, chloride 99, CO2 37, anion gap 12, BUN 13, creatinine 0.57. AST was 164 and ALT was 591. Troponins were 0.282 and 0.255. Urine was negative. Chest x-ray was consistent with cardiomegaly, and pulmonary vascular congestion/CHF. On 12/18/2021 patient seen in follow-up on selective care unit, he is currently on Airvo at 60 L and FiO2 of 92% and his pulse ox is greater than 97% and this can probably be weaned further down, he is awake and alert, oriented 3, breathing comfortably he is resting in bed watching TV. He is pleasant and cooperative. he remains on oral Lasix at 40 mg every 12 hours, he is sofia ntaining negative fluid balance of -625 mL over the last 24 hours. Chest x-ray findings were consistent with acute exacerbation of CHF with known diastolic dysfunction, his CTA chest was negative for evidence of pulmonary embolism. It did show moderate pulmonary interstitial edema and mid and the lower lung colon. Patient continues on nebulized bronchodilators, he remains on Symbicort. Patient has no significant edema in his bilateral lower legs. Dopplers of the lower extremities were limited due to patient's body habitus, but within the limitation of the study there was no sonographic findings of DVT in the lower extremities. Today's labs have been reviewed, his white blood cell, 7.2, hemoglobin is 15.8, sodium is 138, potassium 3.9, chloride is 89, CO2 is 37, BUN 13 creatinine 0.57. Patient tested negative for COVID-19, influenza A and B and RSV. On 12/19/2021 patient seen in follow-up on selective care unit, he remains on high flow oxygen, per Airvo with 55 L and FiO2 of 85% and his pulse ox is 88- 94%. Patient is sleepy this morning however she arouses to voice, he answers simple questions, he feels very fatigued. Nursing reports that the patient does not sleep well at night and she was up until 4:00 in the morning area. Has been extensively diuresed, his IV Lasix has been switched to oral Lasix 40 mg twice daily however he appears to be dehydrated on clinical exam. His oral intake is fair, his appetite is good other than this morning she only consumed 25% of his meal because of being tired. Lung sounds are positive for bibasilar crackles, no rhonchi or wheezes, no significant edema involving his bilateral lower extremities, today's chest x-ray has been reviewed showing lung volumes, patchy bibasilar atelectasis or scarring, cardiomegaly. Today's labs have been reviewed showing white blood cell count is 7.8, hemoglobin of 15.9, sodium is 136, potassium is 4.5, chloride is 90, CO2 is 43, B1 is 21, creatinine 0.7, his LFTs are improved, AST is now within normal limits at 37, ALT is 252, and alkaline phosphatase is 93, his pro-calcitonin level came back negative at 0.12. Patient was tested negative for COVID-19 2, tested negative for influenza A and B, and RSV. On 12/20/2021 patient seen in follow-up on selective care unit, he is awake and alert, in no acute distress, he continues on Airvo at 55 L and FiO2 of 85% is pulse ox is around 96%, breathing comfortably, lung sounds are diminished, clear no crackles, no rhonchi he continues on oral Lasix 40 mg once daily and he is in -1.5 L net fluid balance over the last 24 hours, he continues on Aldactone 12.5 mg daily, and yesterday we gave the patient 2 doses of oral Diamox 250 mg twice daily. Today's labs including electrolytes and renal profile are still pending, vital signs have been stable overnight, no fever or chills, occasional cough, no phlegm production. No complaints of chest discomfort. His yesterday's chest x- ray showed low lung volumes, no pneumothorax or pleural effusion. Patchy bilateral airspace disease. On 12/21/2021 patient seen in follow-up on selective care unit, he is awake and alert, in no acute distress, remains on Airvo at 50 L and FiO2 of 80%, and his pulse ox is 92%, he is breathing quite comfortably, he remains on once daily dose of oral Lasix 40 mg, remains on Aldactone, he is in negative 1.3 L net fluid balance over the last 24 hours. Today's chest x-ray showing patchy basilar densities, and stable cardiomegaly. Today's labs have been reviewed, sodium is 137, potassium is 4.3, chloride is 98, CO2 is 37, BUN is 20 creatinine 0.72. Patient denies any worsening dyspnea, cough or chest discomfort. On 12/22/2021 rapid response team was called in view of worsening hypoxia, patient has been on Airvo at 50 L and FiO2 of 80%, and he was noted to have O2 saturations in the low 80s, and subsequently his Airvo flow was increased to 60 L and FiO2 of 90% and patient was also placed on in the 100% nonrebreather mask and continued to have low O2 saturations at around 83%. Patient is awake, she still refuses to wear the BiPAP, he is crying, but he is responding appropriately, does not appear to be in any acute distress. He had been on oral dose Lasix once daily, on Aldactone and once daily dose of Diamox 250 mg. Patient has been maintaining negative fluid balance over the last several days, and the last 24 hours he is in -1044 mL negative net fluid balance, today's chest x-ray showing cardiomegaly, low lung volumes, no evident pneumothorax, tidal patchy attenuation possibly related to atelectasis or interstitial edema. Patient was given an additional dose of IV Lasix 40 mg this morning, Bose catheter has been inserted and patient has put out over a liter in urine output. Subsequently he was transferred to the intensive care unit for closer monitoring, he remains awake and alert, denies any acute distress, mildly conges alfred cough, no phlegm production. He is watching TV, he is comfortable. Denies any chest discomfort. His had no fever or chills overnight, he starting to diurese. He still refuses to wear BiPAP, with deep breathing has pulse ox comes up to 96%. He will be given an incentive spirometer. Today's labs are still pending. Patient has been on GI and DVT prophylaxis with oral Pepcid and heparin 5000 units every 12 hours subcu. His d-dimer was elevated on admission, but CTA chest was completed showing no evidence of pulmonary embolism, lower extremity Dopplers were negative for DVT in the limitation of the study. On 12/23/2021, I'm seeing the patient for a follow-up. The patient remains on Airvo 60 L an FiO2 of 90%. The patient is able to maintain a pulse ox of above 88%. No signs of any significant respiratory distress. No significant cough sputum production chest vessel wheezing. The patient is having some oral dryness. The input output balance has been negative in the order of 1044 mL over the past 24 hours. The patient remains on IV Lasix 40 mg IV push every 12 hours and the patient is also on Aldactone 12.5 mg by mouth daily and the patient is also on Diamox 250 mg IV every 12 hours. The electrolytes from today shows a sodium of 136, serum bicarbonate 40, BUN is 25 with creatinine 0.8. Potassium level is at 4.0. The white cell count is at 9.7 with a hemoglobin of 15.9 and a platelet count of 206. The chest x-ray from today shows interstitial edema/CHF and cardiomegaly. The blood gases obtained yesterday showed a pH of 7.33 with an episode of 82 and this is consistent with an acute on top of chronic hypercapnic respiratory failure. The patient's pO2 was at 59 and this was done while the patient on Airvo 60 L an FiO2 of 90%. 12/24/2021, I'm seeing the patient for a follow-up. He is comfortable. Upon doing some breathing exercises and deep breathing, the patient is able to bring up his oxygen saturation up to 97%. This further supports presence of significant amount of atelectasis in lung bases. Based on that, I made recommendations to set up this patient on a chair and be more aggressive with his pulmonary toileting. He remains on Airvo 60 L with an FiO2 of 90%. The patient is still on Lasix and Diamox. Overall fluid balance is -1.98 his over the past 24 hours. Serum bicarbonate 41. BUN is at 29 with a creatinine of 0.89. He is doing well. He denies having any respiratory distress. No significant cough sputum production chest that is so wheezing. He is tolerating his diet. No other issues otherwise for now. 12/25/2021, seeing the patient for a follow-up. Patient is doing well. Remains on Airvo 60 L with an FiO2 of 90%. Continues to undergo aggressive diuresis and aggressive pulmonary toileting. The patient was provided incentive spirometer. The patient was also most on a chair when he was able to breathe more co mfortably. Overall fluid balance has been negative at least 1 L over the past 24 hours and the patient is headed towards a negative fluid balance over the next 24 hours. His serum bicarbonate 40. BUN is at 29 with a creatinine of 0.89. Meanwhile, the patient is still on Lasix 40 mg IV every 12 hours. The patient is also receiving Diamox. The patient on Aldactone. Potassium level is at 3.6 and this being replaced per protocol. Oxidation is improved and the patient's pulse is 97% on above-mentioned Airvo setting. He is awake. He is alert. He is not showing any signs of any respiratory distress. 12/26/2021, I'm seeing the patient for a follow-up. The patient remains on Airvo 60 L with an FiO2 of 75%. The patient was being diuresed with IV Lasix and as of yesterday, the patient developed a diminished urine output. He also developed an acute kidney injury in the creatinine was up to 1.5 from today. Meanwhile, his net fluid balance is still negative around 2.2 L over the past 24 hours. Urine output slowed down initially and then it picked up again. His weight is down 219 kg. Based on all this, I decided to stop the diuretics for 24 hours. Give the patient 500 mL of bolus. He is still the same condition. His chest x-ray still showing pulmonary edema. No nausea. No vomiting. No diarrhea. No abdominal pain. No change in his mentation above and beyond his baseline. No other significant events otherwise for now.. He is using incentive spirometer. Was also doing aggressive pulmonary toileting on this patient. 12/27/2021, I'm seeing the patient for a follow-up. The patient was taken off the diuretic as the patient had a rise in the creatinine up to 1.5. On today's evaluation, he is still negative fluid balance of 270 mL in the creatinine is down to 0.9. He is still on Airvo with 15 L with an FiO2 of 70%. I tried to drop down further and is able settings and the patient desaturated and his pulse ox dropped down to the low 80s. His chest x-ray remains unchanged and there is increased vessel markings and pulmonary edema still present. Lasix will be started today and a dose of Lasix was given this morning 40 mg IV push. Doing well. No new complaints. Using incentive spirometer. Aggressive pulmonary toileting is being done. No other significant events overnight otherwise for now. On his blood work, the patient has a white cell count of 8.6 with a hemoglobin 14.8. BUN is at 49 with a creatinine of 0.9 and sodium level is at 133 and a serum bicarb is at 35. 12/28/2021, I'm seeing the patient for a follow-up. The patient is still on Airvo. Overnight, the patient started desaturating and the patient was placed back again on high flow oxygen 6 L an FiO2 of 80% this morning. Renal function is normalized and the creatinine is down to 0.67 and the patient remains in a negative fluid balance. Overall fluid balance is -2.6 L over the past 24 hours. I strictly believe that the patient is hypoventilating and the patient has si gnificant atelectatic changes in lung bases as the patient is able to generate a pulse ox of 97% with few deep breaths. The chest x-ray remains unchanged. Renal function is normalized. Based on that, I'm resuming diuretics again on this patient. He is awake and alert. He is interactive. Electrodes are stable. Serum bicarb is at 35. On today's evaluation to be an is 27 with a creatinine of 0.6. The white cell count is 7.9. He is afebrile. He is hemodynamically stable at this point in time. 12/29/2021, I'm seeing the patient for a follow-up. The patient is doing well and currently is down to 5 L of oxygen by nasal cannula. IV Lasix was restarted yesterday and the patient developed a negative fluid balance of 2.6 L over the past 24 hours. Doing well. No specific complaints. No respiratory distress. BUN is at 30 with a creatinine of 0.7 and sodium level is at 136. No chest pain. Chest x-ray showing improvement in interstitial edema volume status. No other significant events overnight. Renal function is stable for now. The patient recovers from acute kidney injury. The patient is seen today 12/30/2021 in follow-up on the regular medical floor. He is currently sitting up in a chair at the bedside. Awake and alert in no acute distress. Watching TV. He is maintaining good O2 saturations in the 90s on 10 L high flow nasal cannula. He's been afebrile. Hemodynamically stable. No new labs today. No new chest x-ray today. He is continued on DuoNeb inhala tions, Symbicort. Heparin for DVT prophylaxis. 12/31/2021, the patient has no specific complaints. Continues to diurese with IV Lasix and the patient has been negative fluid balance of another 1.9 L over the past 24 hours. No new complaints otherwise for now. The patient is currently on 8 L nasal cannula. No cough. No sputum production. No chest tightness. No wheezing. The blood work shows a sodium level of 133 with a mean of 43 and a creatinine of 0.7. White cell count 8 with a hemoglobin 14.5. Objective - Vital Signs Vital signs: Vital Signs Temp 99.1 F 12/31/21 12:36 Pulse 75 12/31/21 12:36 Resp 22 12/31/21 12:36 BP 101/63 12/31/21 12:36 Pulse Ox 89 L 12/31/21 12:56 Intake & Output 12/30/21 12/31/21 12/31/21 18:59 06:59 18:59 Intake Total 240 400 Output Total 1950 650 Balance -1710 -250 Intake: Oral 240 400 Output: Urine 1950 650 Other: Voiding Method Indwelling Catheter Indwelling Catheter Indwelling Catheter - Exam GENERAL EXAM: Awake and alert, 45-year-old male with typical features of Down syndrome on currently resting comfortably in bed, currently on 8 L of oxygen mick al cannula HEAD: Normocephalic/atraumatic. EYES: Normal reaction of pupils, equal size. Conjunctiva pink, sclera white. NOSE: Clear with pink turbinates. THROAT: No erythema or exudates. NECK: No masses, no JVD, no thyroid enlargement, no adenopathy. CHEST: No chest wall deformity. Symmetrical expansion. LUNGS: Equal air entry with diminished breath sounds, bibasilar crackles CVS: Regular rate and rhythm, normal S1 and S2, no gallops, no murmurs, no rubs ABDOMEN: Soft, nontender. No hepatosplenomegaly, normal bowel sounds, no guarding or rigidity. EXTREMITIES: No clubbing, no lower extremity edema no cyanosis, 2+ pulses and upper and lower extremities. MUSCULOSKELETAL: Muscle strength and tone normal. SPINE: No scoliosis or deformity SKIN: No rashes CENTRAL NERVOUS SYSTEM: Awake and alert, No focal deficits, tone is normal in all 4 extremities. - Labs CBC & Chem 7: 12/31/21 12:21 12/31/21 12:21 Labs: Abnormal Lab Results - Last 24 Hours (Table) 12/31/21 12/31/21 Range/Units 12:21 12:21 MCHC 30.6 L (31.0-37.0) g/dL RDW 22.2 H (11.5-15.5) % Sodium 133 L (137-145) mmol/L Chloride 95 L (98-107) mmol/L Carbon Dioxide 36 H (22-30) mmol/L BUN 43 H (9-20) mg/dL Assessment and Plan Plan: #1. Acute hypoxic respiratory failure secondary to acute exacerbation of diastolic CHF. COVID-19 PCR, influenza A and B and RSV were negative. On 12/22/2021 patient was noted to have worsening hypoxia, rapid response team was called, patient is currently on 8 L of oxygen by nasal cannula. The patient on Lasix and the patient is on a negative fluid balance of 2.6 L over the past 24 hours with subsequent improvement and oxygenation. Chest x-rays also showing improvement in the volume status. As mentioned earlier, the patient's hypoxemia is multifactorial. The patient obviously is a hypoventilatory and addition to that the patient has atelectatic changes and interstitial edema bilaterally. #2. Recent hospitalization for acute exacerbation of CHF with the possibility of aspiration related pneumonia and acute lung injury/ARDS is thought to be less likely. #3. Elevated troponin levels, likely related to acute CHF, please refer to cardiology consultation #4. Obstructive sleep apnea intolerant to CPAP #5. Morbid obesity with BMI 43.7 kg/m #6. History of Down syndrome #7. History of hyperlipidemia #8. History of obstructive sleep apnea, intolerant to CPAP #9. Obesity hypoventilation syndrome #10. Elevated d-dimer, without CT evidence of pulmonary embolism or DVT on lower extremity Dopplers #11 acute kidney injury in the creatinine is up to 1.5, likely secondary diuresis. Diuretics were placed on hold and the creatinine is down to 0 point on today's evaluation. Plan: Put the patient on 5 L nasal cannula high flow Continue Lasix 40 mg IV every 12 hours, continues to diurese adequately and the renal function remains stable without evidence of any significant metabolic alkalosis Monitor urine output Monitor renal function Maintenance saturation above 90% Continue using incentive spirometer Sit up this patient on a chair Provide incentive spirometer
[2021-12-31] MEDS ORDERED: FUROSEMIDE 40 MG TAB PO ONE (20:30)
--- NOTE | 2022-01-01 00:31 | P.PN ---
Subjective Progress Note Date: 12/31/21 Principal diagnosis: Acute hypoxemic respiratory failure secondary to an acute exacerbation of diastolic congestive heart failure Acute hypercapnic respiratory failure secondary to obesity/hypoventilation syndrome Obstructive sleep apnea intolerant to CPAP This is a pleasant 46 years old male with past medical history of Asthma, GERD/Reflux, Hyperlipidemia, Memory Impairment, Down syndrome/IQ of about 74, chronic feet issue d/t gout, SHARRI but pt unable to tolerate CPAP Patient is poor historian, sitting in bed eating his breakfast with no difficult y on high flow nasal cannula, he can tell me he is in the hospital but he could not recognize which hospital, the date or the name of the president. When I ask her most recently came to the hospital he points to his right forearm block stating it is because of this. However patient states that his breathing is better now and he denies chest pain or abdominal pain or any other complaints He denies smoking, alcohol or illicit drugs. 12/31/21 Seen and evaluated at bedside. Patient has lost IV access. Currently being diuresed with IV lasix with a negative fluid balance of 1.9 liters in past 24 hours Patient remains on O2 at 8 L per NC Labs remain stable with Na of 133, creatinine 0.7, wbc 8, Patient will continue with Lasix at 40 mg PO every 12 hours. Patient will be switched to IV diuersis if inadequate results with oral therapy. Objective - Vital Signs Vital signs: Vital Signs Temp 98.7 F 12/31/21 05:55 Pulse 74 12/31/21 08:35 Resp 20 12/31/21 08:35 BP 120/63 12/31/21 07:32 Pulse Ox 92 L 12/31/21 05:55 Intake & Output 12/30/21 12/31/21 12/31/21 18:59 06:59 18:59 Intake Total 240 400 Output Total 1950 650 Balance -1710 -250 Intake: Oral 240 400 Output: Urine 1950 650 Other: Voiding Method Indwelling Catheter Indwelling Catheter Indwelling Catheter - Exam -GENERAL: The patient is alert and oriented x3, not in any acute distress. Obese, generally tired, Mentally challenged. HEENT: Pupils are round and equally reacting to light. EOMI. No scleral icterus. No conjunctival pallor. Normocephalic, atraumatic. No pharyngeal erythema. No thyromegaly. CARDIOVASCULAR: S1 and S2 present. No murmurs, rubs, or gallops. -PULMONARY: Chest is clear to auscultation, no wheezing or crackles. Mildly tachypneic ABDOMEN: Soft, nontender, nondistended, normoactive bowel sounds. No palpable organomegaly. MUSCULOSKELETAL: No joint swelling or deformity. EXTREMITIES: No cyanosis, clubbing, or pedal edema. NEUROLOGICAL: Gross neurological examination did not reveal any focal deficits. SKIN: No rashes. no petechiae. - Labs CBC & Chem 7: 12/31/21 12:21 12/31/21 12:21 Assessment and Plan Assessment: Acute hypoxic respiratory failure secondary to diastolic CHF exacerbation. Requiring high flow oxygen via Airvo. Patient is refusing to wear BiPAP. Acute kidney injury likely prerenal due to diuretics. Elevated troponin likely demand ischemia elevated d-dimer with no evidence of PE or DVT Elevated liver enzymes , improving CTA of the chest showing no pulmonary embolism, moderate pulmonary interstitial edema in the mid and lower lung colon Memory problem most likely related to yearly Alzheimer's dementia, given his history of Down syndrome. Down syndrome History of asthma History of GERD History of memory impairment History of obstructive sleep apnea, not on CPAP, cannot tolerate. History of gout Plan: This is a pleasant 46 years old male with Down syndrome who presents with acute CHF started back on Lasix 40 mg IV twice a day. aldactone and diamox on hold. Monitor renal function. Continue with aspirin Labs and medication were reviewed..Monitor lytes and vitals. DVT and GI prophylaxis. DVT prophylaxis: Subcutaneous heparin GI Prophylaxis: Pepcid PT/OT: Pending Prognosis is guarded
[2022-01-01] MEDS: SYMBICORT 160-4.5 MCG INHALER INHALATION SCH ×2 (07:52→19:26)
[2022-01-01] MEDS: IPRATROPIUM-ALBUTEROL 3 ML NEB INHALATION SCH ×4 (07:52→19:26)
[2022-01-01] MEDS: HEPARIN SODIUM,PORCINE/PF 5,000 UNIT/0.5 ML SYRINGE SQ SCH ×2 (08:11→19:55)
[2022-01-01] MEDS: ATORVASTATIN 40 MG TAB PO SCH (08:11)
[2022-01-01] MEDS: ASPIRIN 81 MG PO SCH (08:11)
[2022-01-01] MEDS: polyethylene glycoL 3350 17 GM POWD.PACK PO SCH (08:11)
[2022-01-01] MEDS: FUROSEMIDE 10 MG/ML 4 ML VIAL IV SCH (08:11)
[2022-01-01] MEDS: FAMOTIDINE 20 MG TAB PO SCH ×2 (08:11→19:55)
[2022-01-01 09:07] LABS: African American GFR (CKD) 137.8 (60.0-200.0); Anion Gap 7.5 mmol/L (10.00-18.00); BUN/Creat Ratio 63.17 Ratio (12.00-20.00); Blood Urea Nitrogen 37.9 mg/dL (9.0-27.0); Calcium 8.7 mg/dL (8.7-10.3); Carbon Dioxide 33.5 mmol/L (20.0-27.5); Non-African American GFR(CKD) 118.9 (60.0-200.0); Potassium 4.9 mmol/L (3.5-5.5)
--- NOTE | 2022-01-01 14:03 | P.PN ---
Subjective Progress Note Date: 01/01/22 Principal diagnosis: Shortness of breath, acute hypoxic respiratory failure This is a pleasant 46-year-old male patient with a history of Down syndrome, diastolic congestive heart failure, recurrent aspiration pneumonias, obstructive sleep apnea intolerant to CPAP, hyperlipidemia, gastroesophageal reflux disease. He follows with Dr. Quintanilla as his primary care provider. He was recently here for almost a month for multifactorial issues regarding shortness of breath secondary to diastolic congestive heart failure aspiration pneumonia and hypoventilation syndrome. He was discharged on 11/13/2021. He was brought back to the emergency room yesterday with increasing shortness of breath. X-ray showed progressive patchy perihilar and basilar infiltrates compared to 11/11/19. CT angiogram revealed no evidence of pulmonary embolism. There is moderate pulmonary interstitial edema in the mid and lower lung colon. Previous echocardiogram revealed preserved left ventricular systolic function with ejection fraction 50-55%. Lower extremities negative for DVTs. White count 11.7. Hemoglobin 14.8. INR 1.2. D-dimer 3.44. Sodium 134. Potassium 3.9. Chloride 87. Bicarb 42. BUN 18. Creatinine 0.61. Glucose 143. Troponins 0.40, 0.28, 0.25. ProBNP 3290. Urinalysis clean. Chavira virus by PCR not detected. Pro-calcitonin pending. He's been initiated on DuoNeb inhalations, Symbicort. Lasix 40 mg by mouth every 8 hours. Aldactone. Progress note dated 12/17/2021. 46-year-old male with history of down syndrome, diastolic CHF, recurrent aspiration pneumonia, sleep apnea, hyperlipidemia, and GERD. His primary care physician is Dr. Quintanilla. He was recently here for almost a month for shortness of breath, secondary to CHF. At that time, he was also thought to have aspiration pneumonia. He was finally discharged on 11/13/2021. He was brought back to the emergency room, 2 days ago, with increasing shortness of breath, and diffuse bilateral infiltrates. There was no pulmonary embolism on CT angiogram. Currently, the patient is on AIRVO, at 60 L/m with an FiO2 of 90%. He's not receiving any IV fluids. His nurse held his nitroglycerin this morning, because his blood pressure was a bit soft. Labs today include a white count of 7.2, hemoglobin 15.8, hematocrit 51.7, and a platelet count of 188,000. Sodium was 138, potassium 3.9, chloride 99, CO2 37, anion gap 12, BUN 13, creatinine 0.57. AST was 164 and ALT was 591. Troponins were 0.282 and 0.255. Urine was negative. Chest x-ray was consistent with cardiomegaly, and pulmonary vascular congestion/CHF. On 12/18/2021 patient seen in follow-up on selective care unit, he is currently on Airvo at 60 L and FiO2 of 92% and his pulse ox is greater than 97% and this can probably be weaned further down, he is awake and alert, oriented 3, breathing comfortably he is resting in bed watching TV. He is pleasant and cooperative. he remains on oral Lasix at 40 mg every 12 hours, he is m aintaining negative fluid balance of -625 mL over the last 24 hours. Chest x- ray findings were consistent with acute exacerbation of CHF with known diastolic dysfunction, his CTA chest was negative for evidence of pulmonary embolism. It did show moderate pulmonary interstitial edema and mid and the lower lung colon. Patient continues on nebulized bronchodilators, he remains on Symbicort. Patient has no significant edema in his bilateral lower legs. Dopplers of the lower extremities were limited due to patient's body habitus, but within the limitation of the study there was no sonographic findings of DVT in the lower extremities. Today's labs have been reviewed, his white blood cell, 7.2, hemoglobin is 15.8, sodium is 138, potassium 3.9, chloride is 89, CO2 is 37, BUN 13 creatinine 0.57. Patient tested negative for COVID-19, influenza A and B and RSV. On 12/19/2021 patient seen in follow-up on selective care unit, he remains on high flow oxygen, per Airvo with 55 L and FiO2 of 85% and his pulse ox is 88- 94%. Patient is sleepy this morning however she arouses to voice, he answers simple questions, he feels very fatigued. Nursing reports that the patient does not sleep well at night and she was up until 4:00 in the morning area. Has been extensively diuresed, his IV Lasix has been switched to oral Lasix 40 mg twice daily however he appears to be dehydrated on clinical exam. His oral intake is fair, his appetite is good other than this morning she only consumed 25% of his meal because of being tired. Lung sounds are positive for bibasilar crackles, no rhonchi or wheezes, no significant edema involving his bilateral lower extremities, today's chest x-ray has been reviewed showing lung volumes, patchy bibasilar atelectasis or scarring, cardiomegaly. Today's labs have been reviewed showing white blood cell count is 7.8, hemoglobin of 15.9, sodium is 136, potassium is 4.5, chloride is 90, CO2 is 43, B1 is 21, creatinine 0.7, his LFTs are improved, AST is now within normal limits at 37, ALT is 252, and alkaline phosphatase is 93, his pro-calcitonin level came back negative at 0.12. Patient was tested negative for COVID-19 2, tested negative for influenza A and B, and RSV. On 12/20/2021 patient seen in follow-up on selective care unit, he is awake and alert, in no acute distress, he continues on Airvo at 55 L and FiO2 of 85% is pulse ox is around 96%, breathing comfortably, lung sounds are diminished, clear no crackles, no rhonchi he continues on oral Lasix 40 mg once daily and he is in -1.5 L net fluid balance over the last 24 hours, he continues on Aldactone 12.5 mg daily, and yesterday we gave the patient 2 doses of oral Diamox 250 mg twice daily. Today's labs including electrolytes and renal profile are still pending, vital signs have been stable overnight, no fever or chills, occasional cough, no phlegm production. No complaints of chest discomfort. His yesterday's chest x- ray showed low lung volumes, no pneumothorax or pleural effusion. Patchy bilateral airspace disease. On 12/21/2021 patient seen in follow-up on selective care unit, he is awake and alert, in no acute distress, remains on Airvo at 50 L and FiO2 of 80%, and his pulse ox is 92%, he is breathing quite comfortably, he remains on once daily dose of oral Lasix 40 mg, remains on Aldactone, he is in negative 1.3 L net fluid balance over the last 24 hours. Today's chest x-ray showing patchy basilar densities, and stable cardiomegaly. Today's labs have been reviewed, sodium is 137, potassium is 4.3, chloride is 98, CO2 is 37, BUN is 20 creatinine 0.72. Patient denies any worsening dyspnea, cough or chest discomfort. On 12/22/2021 rapid response team was called in view of worsening hypoxia, patient has been on Airvo at 50 L and FiO2 of 80%, and he was noted to have O2 saturations in the low 80s, and subsequently his Airvo flow was increased to 60 L and FiO2 of 90% and patient was also placed on in the 100% nonrebreather mask and continued to have low O2 saturations at around 83%. Patient is awake, she still refuses to wear the BiPAP, he is crying, but he is responding appropriately, does not appear to be in any acute distress. He had been on oral dose Lasix once daily, on Aldactone and once daily dose of Diamox 250 mg. Patient has been maintaining negative fluid balance over the last several days, and the last 24 hours he is in -1044 mL negative net fluid balance, today's chest x-ray showing cardiomegaly, low lung volumes, no evident pneumothorax, tidal patchy attenuation possibly related to atelectasis or interstitial edema. Patient was given an additional dose of IV Lasix 40 mg this morning, Bose catheter has been inserted and patient has put out over a liter in urine output. Subsequently he was transferred to the intensive care unit for closer monitoring, he remains awake and alert, denies any acute distress, mildly kenney ested cough, no phlegm production. He is watching TV, he is comfortable. Denies any chest discomfort. His had no fever or chills overnight, he starting to diurese. He still refuses to wear BiPAP, with deep breathing has pulse ox comes up to 96%. He will be given an incentive spirometer. Today's labs are still pending. Patient has been on GI and DVT prophylaxis with oral Pepcid and heparin 5000 units every 12 hours subcu. His d-dimer was elevated on admission, but CTA chest was completed showing no evidence of pulmonary embolism, lower extremity Dopplers were negative for DVT in the limitation of the study. On 01/01/2022 patient seen in follow-up. He is awake and alert, he is sitting up in the chair, currently on 10 L of oxygen however his pulse ox is 95-97% and subsequently his FiO2 was dropped down to 8 L. Breathing quite comfortably, no cough, no chest discomfort, he currently remains on Lasix 40 mg every 12 hours, is in negative at 350 ML net fluid balance over the last 24 hours. No fever or chills, he is on breathing treatments. Today's labs have been reviewed, his s odium is 138, potassium is 4.9, chloride is 97, BUN is 37, and creatinine 0.6. No significant edema involving his lower extremities. Objective - Vital Signs Vital signs: Vital Signs Temp 97.8 F 01/01/22 11:07 Pulse 70 01/01/22 11:07 Resp 18 01/01/22 11:07 BP 91/59 01/01/22 11:07 Pulse Ox 95 01/01/22 11:07 Intake & Output 12/31/21 01/01/22 01/01/22 18:59 06:59 18:59 Intake Total 360 590 Output Total 1300 1000 Balance 360 -710 -1000 Intake: Oral 360 590 Output: Urine 1300 1000 Other: Voiding Method Indwelling Catheter Indwelling Catheter Indwelling Catheter - Exam GENERAL EXAM: Awake and alert, 45-year-old male with typical features of Down syndrome on currently resting comfortably in bed, currently on 10 L high flow ox ygen with pulse ox of 97%, breathing comfortably EYES: Normal reaction of pupils, equal size. Conjunctiva pink, sclera white. NOSE: Clear with pink turbinates. THROAT: No erythema or exudates. NECK: No masses, no JVD, no thyroid enlargement, no adenopathy. CHEST: No chest wall deformity. Symmetrical expansion. LUNGS: Equal air entry with diminished breath sounds, bibasilar crackles CVS: Regular rate and rhythm, normal S1 and S2, no gallops, no murmurs, no rubs ABDOMEN: Soft, nontender. No hepatosplenomegaly, normal bowel sounds, no guarding or rigidity. EXTREMITIES: No clubbing, no lower extremity edema no cyanosis, 2+ pulses and upper and lower extremities. MUSCULOSKELETAL: Muscle strength and tone normal. SPINE: No scoliosis or deformity SKIN: No rashes CENTRAL NERVOUS SYSTEM: Awake and alert, No focal deficits, tone is normal in all 4 extremities. - Labs CBC & Chem 7: 12/31/21 12:21 01/01/22 06:00 Labs: Abnormal Lab Results - Last 24 Hours (Table) 01/01/22 Range/Units 06:00 Carbon Dioxide 33.5 H (20.0-27.5) mmol/L Anion Gap 7.50 L (10.00-18.00) mmol/L BUN 37.9 H (9.0-27.0) mg/dL BUN/Creatinine Ratio 63.17 H (12.00-20.00) Ratio Glucose 124 H (70-110) mg/dL Assessment and Plan Plan: Assessment: #1. Acute hypoxic respiratory failure secondary to acute exacerbation of diastolic CHF. COVID-19 PCR, influenza A and B and RSV were negative. On 12/22/2021 patient was noted to have worsening hypoxia, rapid response team was called, patient is currently on Airvo, 60 L and FiO2 of 90% in addition to nonrebreather mask at 100%. Chest x-ray is consistent with low lung volumes, atelectasis, possibility of interstitial edema. Patient was given additional dose of Lasix and transferred to the intensive care unit. On 01/01/2022 patient's hypoxia is improved, patient is currently down to 8 L of oxygen #2. Recent hospitalization for acute exacerbation of CHF with the possibility of aspiration related pneumonia and acute lung injury/ARDS. #3. Elevated troponin levels, likely related to acute CHF, please refer to cardiology consultation for comment #4. Obstructive sleep apnea intolerant to CPAP #5. Morbid obesity with BMI 43.7 kg/m #6. History of Down syndrome #7. History of hyperlipidemia #8. History of obstructive sleep apnea, intolerant to CPAP #9. Obesity hypoventilation syndrome #10. Elevated d-dimer, without CT evidence of pulmonary embolism or DVT on lower extremity Dopplers Plan: Continue weaning FiO2 Keep O2 sats ration is at or around 85-88% Follow-up chest x-ray tomorrow Switch IV Lasix to oral Lasix 40 mg twice daily Continue inhaled and nebulized bronchodilators Increase activity as tolerated Incentive spirometry Encouraged the patient to sit up in a chair and deep breathe and cough Once patient is down to 5 L or less and remains stable he may be considered for discharge if cleared by medicine I have personally seen and examined the patient, performed the documentation and the assessment and plan as written. Number of minutes spent on the visit: [10] Time with Patient: Less than 30
[2022-01-01] MEDS: FUROSEMIDE 40 MG TAB PO SCH (16:04)
[2022-01-01] MEDS: ACETAMINOPHEN TAB 325 MG TAB PO PRN (20:08)
--- NOTE | 2022-01-02 01:32 | P.PN ---
Subjective This is a pleasant 46 years old male with past medical history of Asthma, GERD/Reflux, Hyperlipidemia, Memory Impairment, Down syndrome/IQ of about 74, chronic feet issue d/t gout, SHARRI but pt unable to tolerate CPAP Patient is poor historian, sitting in bed eating his breakfast with no difficulty on high flow nasal cannula, he can tell me he is in the hospital but he could not recognize which hospital, the date or the name of the president. When I ask her most recently came to the hospital he points to his right forearm block stating it is because of this. However patient states that his breathing is better now and he denies chest pain or abdominal pain or any other complaints He denies smoking, alcohol or illicit drugs. Patient is hypoxic on the presentation, with oxygen saturating 88% on 4 L and 82% on 50 L, currently on high flow nasal cannula 55%. Afebrile, tachypneic. Has leukocytosis of 11.7, rest of CBC is unremarkable. INR is 1.2 D-dimer is 3.4. BMP is unremarkable, liver enzymes significantly elevated with AST 642 and ALT 1133. Troponin is elevated at 0.4 and 0.2. Urine analysis is not suspicious of infection. Coronal versus nondetected. EKG: Normal sinus rhythm at [address]-T abnormality. Patient was started on aspirin 325 mg, IV Lasix and then oral Lasix 40 mg every 8 hours, bronchodilator. With cardiology team consulted Echocardiogram done on 09/2021 showing preserved ejection fraction of 50-55%. 12/17/2021 Can awake but sleepy, he follows commands. He still slightly tachypneic. He remains on high flow oxygen via nasal cannula at 60 L/m. Chest x-ray showed slight increase in the mid and lower lung zones Pro-calcitonin only mildly elevated 0.12, proBNP is normal which goes against CHF at 323 We are going to recheck cold, influenza and RSV 12/18/2021 Patient is awaken although is sleeping a lot. He looks pleasant and answer questions however he looks confused for example when asking is this year house he said yes. History of on airvo Quiring 60 L/M with 90% oxygen. He is has proximal area with unknown reason. This Procalcitonin and proBNP are both low level. CTA is negative for PE. There is no evidence of wheezing. His CTA showing bilateral infiltrates and obesity may contribute to factor. Pulmonary and cardiology team on the case Currently he is on oral Lasix 40 mg twice a day, aspirin 325 mg and subcu heparin Viral test for Covid, influenza and RSV came back negative 12/19/2021 Sleepy and drowsy most of the time, he is tachypneic, he still requiring oxygen supplementation at 55 L with saturation of 88%. ABG today showing compensated hypercapnia with pH normal at 7.3 and pCO2 elevated 77. PO2 is 74. ABG bicarb is 45 which is elevated. Also BMP is showing evidence of contraction alkalosis with elevated carbon dioxide 43 and elevated BUN/creatinine ratio 21/0.77. Lasix dose will be held today. Pulmonary and cardiology team on the case. Chest x-ray today showing pneumonia versus fibrotic changes/scar We will repeat pro-calcitonin, patient currently is not on antibiotic, he is on by mouth Lasix 40 mg daily and a stent of twice a day 12/20/2021 patient remains on oxygen, history of on airvo at 55 L/m with 88% His pro-calcitonin is 0.12, we going to repeat , His ABG showed normal pH 7.3, high pCO2 77 and low PaO2 74. He remains on diuretic, pulmonary cartilage team on the case 12/21/2021 Patient is more awake today he is alert still confused he follow commands with simple instructions only. It looks like he has some elements of dementia and memory impairment. Remains on airvo with 50 L and FiO2 of 83% His pro-calcitonin with repeated is normal 0.08. Chest x-ray showing atelectasis versus pneumonia Remains on Acetazolamide, oral Lasix once daily at 40 mg. And aspirin 325 mg 12/22/2021 Patient was transferred to the ICU for worsening hypoxia, he is awake and alert, follows simple commands but it looks almost at baseline. He does not talk much. He does not look in respiratory distress. His oxygen requirements increased back to 60 L/m at 90%. he is saturating at 94% His chest x-ray showing pneumonia versus scarring versus atelectasis His pH is 7.3 pCO2 82 and pO2 is 59 which is low. ProBNP is 191 Patient is refusing to wear BiPAP His Lasix to switch from oral and IV. Continued on aspirin 325 mg and acetazolamide. Subjective: Resuming with the care of the patient today 01/02/2012 Patient respiratory status improving and his oxygen requirements down from 10 L down to 60 Per minute Lasix is switch to 40mg by mouth twice a day Possible discharge in 24-48 hours if he keeps improving Objective - Vital Signs Vital signs: Vital Signs Temp 97.8 F 01/01/22 11:07 Pulse 70 01/01/22 11:07 Resp 18 01/01/22 11:07 BP 91/59 01/01/22 11:07 Pulse Ox 95 01/01/22 11:07 Intake & Output 12/31/21 01/01/22 01/01/22 18:59 06:59 18:59 Intake Total 360 590 Output Total 1300 1000 Balance 360 -710 -1000 Intake: Oral 360 590 Output: Urine 1300 1000 Other: Voiding Method Indwelling Catheter Indwelling Catheter Indwelling Catheter - Exam -GENERAL: The patient is alert and oriented x3, drowsy, not in any acute distress. Obese, generally tired HEENT: Pupils are round and equally reacting to light. EOMI. No scleral icterus. No conjunctival pallor. Normocephalic, atraumatic. No pharyngeal erythema. No thyromegaly. CARDIOVASCULAR: S1 and S2 present. No murmurs, rubs, or gallops. -PULMONARY: Chest is clear to auscultation, no wheezing or crackles. Mildly tachypneic ABDOMEN: Soft, nontender, nondistended, normoactive bowel sounds. No palpable organomegaly. MUSCULOSKELETAL: No joint swelling or deformity. EXTREMITIES: No cyanosis, clubbing, or pedal edema. NEUROLOGICAL: Gross neurological examination did not reveal any focal deficits. SKIN: No rashes. no petechiae. - Labs CBC & Chem 7: 12/31/21 12:21 01/01/22 06:00 Labs: Abnormal Lab Results - Last 24 Hours (Table) 01/01/22 Range/Units 06:00 Carbon Dioxide 33.5 H (20.0-27.5) mmol/L Anion Gap 7.50 L (10.00-18.00) mmol/L BUN 37.9 H (9.0-27.0) mg/dL BUN/Creatinine Ratio 63.17 H (12.00-20.00) Ratio Glucose 124 H (70-110) mg/dL Assessment and Plan Assessment: Hypoxia, acute. Of unknown etiology. Elevated troponin , machine puller over on the case elevated d-dimer with no evidence of PE or DVT Elevated liver enzymes , improving CTA of the chest showing no pulmonary embolism, moderate pulmonary interstitial edema in the mid and lower lung colon Memory problem most likely related to yearly Alzheimer's dementia, given his history of Down syndrome. Down syndrome History of asthma History of GERD History of memory impairment History of obstructive sleep apnea, not on CPAP, cannot tolerate. History of gout Plan: This is a pleasant 46 years old male with Down syndrome who presents with acute CHF Continue with Lasix 40 mg PO twice a day Continue with aspirin cardiology team consult Pulmonary team consult Labs and medication were reviewed.. Continue same treatment. Continue with symptomatic treatment. Resume home medication. Monitor lytes and vitals. DVT and GI prophylaxis. Further recommendations as per clinical course of the patient DVT prophylaxis: Subcutaneous heparin GI Prophylaxis: Pepcid PT/OT: Pending Prognosis is guarded
[2022-01-02] MEDS: polyethylene glycoL 3350 17 GM POWD.PACK PO SCH (08:16)
[2022-01-02] MEDS: ATORVASTATIN 40 MG TAB PO SCH (08:16)
[2022-01-02] MEDS: HEPARIN SODIUM,PORCINE/PF 5,000 UNIT/0.5 ML SYRINGE SQ SCH ×2 (08:16→20:19)
[2022-01-02] MEDS: ASPIRIN 81 MG PO SCH (08:16)
[2022-01-02] MEDS: FAMOTIDINE 20 MG TAB PO SCH ×2 (08:17→20:19)
[2022-01-02] MEDS: FUROSEMIDE 40 MG TAB PO SCH ×2 (08:17→17:30)
--- NOTE | 2022-01-02 08:36 | XR ---
EXAMINATION TYPE: XR chest 1V portable DATE OF EXAM: 01/02/2022 COMPARISON: Chest x-ray 12/29/2021 HISTORY: Congestive heart failure TECHNIQUE: Single frontal view of the chest is obtained. FINDINGS: The bandlike areas of increased attenuation, prominence interstitium again noted greater t he lung bases. There is no evident pneumothorax or pleural effusion. Heart is likely stable accountin g for differences in technique. There are overlying leads IMPRESSION: There may be atelectasis or scar, difficult to exclude pneumonia versus edema, cardiomeg arian
[2022-01-02] MEDS: SYMBICORT 160-4.5 MCG INHALER INHALATION SCH ×2 (08:45→19:25)
[2022-01-02] MEDS: IPRATROPIUM-ALBUTEROL 3 ML NEB INHALATION SCH ×4 (08:45→19:25)
[2022-01-02 09:14] LABS: HCT 45.3 % (39.6-50.0); HGB 13.3 g/dL (13.0-17.0); MCH 29.4 pg (27.0-32.0); MCHC 29.4 g/dL (32.0-37.0); MCV 100.2 fL (80.0-97.0); Mean Platelet Volume 10.6 fL (9.5-12.2); NRBC Per 100 WBC 0 /100 WBCS (0.0-0.0); Platelet Count 273 X 10*3/uL (140-440); RBC 4.52 X 10*6/uL (4.40-5.60); WBC 8.14 X 10*3/uL (4.50-10.00)
[2022-01-02 09:35] LABS: African American GFR (CKD) 148.5 (60.0-200.0); Anion Gap 8.5 mmol/L (10.00-18.00); Blood Urea Nitrogen 26.5 mg/dL (9.0-27.0); Calcium 8.9 mg/dL (8.7-10.3); Carbon Dioxide 33.5 mmol/L (20.0-27.5); Non-African American GFR(CKD) 128.1 (60.0-200.0); Potassium 4.8 mmol/L (3.5-5.5)
[2022-01-02 09:43] LABS: Basophils # (A) 0.09 X 10*3/uL (0.00-0.10); Basophils % (A) 1.1 %; Eosinophils # (A) 0.19 X 10*3/uL (0.04-0.35); Eosinophils % (A) 2.3 %; Immature Grans, Automated 1.5 %; Lymphocytes # (A) 2.74 X 10*3/uL (0.90-5.00); Lymphocytes % (A) 33.7 %; Monocytes # (A) 0.63 X 10*3/uL (0.20-1.00); Monocytes % (A) 7.7 %; Neutrophils # (A) 4.37 X 10*3/uL (1.80-7.70); Neutrophils % (A) 53.7 %
[2022-01-02 09:44] LABS: Anisocytosis (M) 2+
--- NOTE | 2022-01-02 11:43 | P.PN ---
Subjective Progress Note Date: 01/02/22 This is a pleasant 46-year-old male patient with a history of Down syndrome, diastolic congestive heart failure, recurrent aspiration pneumonias, obstructive sleep apnea intolerant to CPAP, hyperlipidemia, gastroesophageal reflux disease. He follows with Dr. Quintanilla as his primary care provider. He was recently here for almost a month for multifactorial issues regarding shortness of breath secondary to diastolic congestive heart failure aspiration pneumonia and hypoventilation syndrome. He was discharged on 11/13/2021. He was brought back to the emergency room yesterday with increasing shortness of breath. X-ray showed progressive patchy perihilar and basilar infiltrates compared to 11/11/2021. CT angiogram revealed no evidence of pulmonary embolism. There is moderate pulmonary interstitial edema in the mid and lower lung colon. Previous echocardiogram revealed preserved left ventricular systolic function with ejection fraction 50-55%. Lower extremities negative for DVTs. White coun t 11.7. Hemoglobin 14.8. INR 1.2. D-dimer 3.44. Sodium 134. Potassium 3.9. Chloride 87. Bicarb 42. BUN 18. Creatinine 0.61. Glucose 143. Troponins 0.40, 0.28, 0.25. ProBNP 3290. Urinalysis clean. Chavira virus by PCR not detected. Pro-calcitonin pending. He's been initiated on DuoNeb inhalations, Symbicort. Lasix 40 mg by mouth every 8 hours. Aldactone. Progress note dated 12/17/2021. 46-year-old male with history of down syndrome, diastolic CHF, recurrent aspiration pneumonia, sleep apnea, hyperlipidemia, and GERD. His primary care physician is Dr. Quintanilla. He was recently here for almost a month for shortness of breath, secondary to CHF. At that time, he was also thought to have aspiration pneumonia. He was finally discharged on 11/13/2021. He was brought back to the emergency room, 2 days ago, with increasing shortness of breath, and diffuse bilateral infiltrates. There was no pulmonary embolism on CT angiogram. Currently, the patient is on AIRVO, at 60 L/m with an FiO2 of 90%. He's not receiving any IV fluids. His nurse held his nitroglycerin this morning, because his blood pressure was a bit soft. Labs today include a white count of 7.2, hemoglobin 15.8, hematocrit 51.7, and a platelet count of 188,000. Sodium was 138, potassium 3.9, chloride 99, CO2 37, anion gap 12, BUN 13, creatinine 0.57. AST was 164 and ALT was 591. Troponins were 0.282 and 0.255. Urine was negative. Chest x-ray was consistent with cardiomegaly, and pulmonary vascular congestion/CHF. On 12/18/2021 patient seen in follow-up on selective care unit, he is currently on Airvo at 60 L and FiO2 of 92% and his pulse ox is greater than 97% and this can probably be weaned further down, he is awake and alert, oriented 3, breathing comfortably he is resting in bed watching TV. He is pleasant and cooperative. he remains on oral Lasix at 40 mg every 12 hours, he is main taining negative fluid balance of -625 mL over the last 24 hours. Chest x-ray findings were consistent with acute exacerbation of CHF with known diastolic dysfunction, his CTA chest was negative for evidence of pulmonary embolism. It did show moderate pulmonary interstitial edema and mid and the lower lung colon. Patient continues on nebulized bronchodilators, he remains on Symbicort. Patient has no significant edema in his bilateral lower legs. Dopplers of the lower extremities were limited due to patient's body habitus, but within the limitation of the study there was no sonographic findings of DVT in the lower extremities. Today's labs have been reviewed, his white blood cell, 7.2, hemoglobin is 15.8, sodium is 138, potassium 3.9, chloride is 89, CO2 is 37, BUN 13 creatinine 0.57. Patient tested negative for COVID-19, influenza A and B and RSV. On 12/19/2021 patient seen in follow-up on selective care unit, he remains on high flow oxygen, per Airvo with 55 L and FiO2 of 85% and his pulse ox is 88- 94%. Patient is sleepy this morning however she arouses to voice, he answers simple questions, he feels very fatigued. Nursing reports that the patient does not sleep well at night and she was up until 4:00 in the morning area. Has been extensively diuresed, his IV Lasix has been switched to oral Lasix 40 mg twice daily however he appears to be dehydrated on clinical exam. His oral intake is fair, his appetite is good other than this morning she only consumed 25% of his meal because of being tired. Lung sounds are positive for bibasilar crackles, no rhonchi or wheezes, no significant edema involving his bilateral lower extremities, today's chest x-ray has been reviewed showing lung volumes, patchy bibasilar atelectasis or scarring, cardiomegaly. Today's labs have been reviewed showing white blood cell count is 7.8, hemoglobin of 15.9, sodium is 136, potassium is 4.5, chloride is 90, CO2 is 43, B1 is 21, creatinine 0.7, his LFTs are improved, AST is now within normal limits at 37, ALT is 252, and alkaline phosphatase is 93, his pro-calcitonin level came back negative at 0.12. Patient was tested negative for COVID-19 2, tested negative for influenza A and B, and RSV. On 12/20/2021 patient seen in follow-up on selective care unit, he is awake and alert, in no acute distress, he continues on Airvo at 55 L and FiO2 of 85% is pulse ox is around 96%, breathing comfortably, lung sounds are diminished, clear no crackles, no rhonchi he continues on oral Lasix 40 mg once daily and he is in -1.5 L net fluid balance over the last 24 hours, he continues on Aldactone 12.5 mg daily, and yesterday we gave the patient 2 doses of oral Diamox 250 mg twice daily. Today's labs including electrolytes and renal profile are still pending, vital signs have been stable overnight, no fever or chills, occasional cough, no phlegm production. No complaints of chest discomfort. His yesterday's chest x- ray showed low lung volumes, no pneumothorax or pleural effusion. Patchy bilateral airspace disease. On 12/21/2021 patient seen in follow-up on selective care unit, he is awake and alert, in no acute distress, remains on Airvo at 50 L and FiO2 of 80%, and his pulse ox is 92%, he is breathing quite comfortably, he remains on once daily dose of oral Lasix 40 mg, remains on Aldactone, he is in negative 1.3 L net fluid balance over the last 24 hours. Today's chest x-ray showing patchy basilar densities, and stable cardiomegaly. Today's labs have been reviewed, sodium is 137, potassium is 4.3, chloride is 98, CO2 is 37, BUN is 20 creatinine 0.72. Patient denies any worsening dyspnea, cough or chest discomfort. On 12/22/2021 rapid response team was called in view of worsening hypoxia, patient has been on Airvo at 50 L and FiO2 of 80%, and he was noted to have O2 saturations in the low 80s, and subsequently his Airvo flow was increased to 60 L and FiO2 of 90% and patient was also placed on in the 100% nonrebreather mask and continued to have low O2 saturations at around 83%. Patient is awake, she still refuses to wear the BiPAP, he is crying, but he is responding appropriately, does not appear to be in any acute distress. He had been on oral dose Lasix once daily, on Aldactone and once daily dose of Diamox 250 mg. Patient has been maintaining negative fluid balance over the last several days, and the last 24 hours he is in -1044 mL negative net fluid balance, today's chest x-ray showing cardiomegaly, low lung volumes, no evident pneumothorax, tidal patchy attenuation possibly related to atelectasis or interstitial edema. Patient was given an additional dose of IV Lasix 40 mg this morning, Bose catheter has been inserted and patient has put out over a liter in urine output. Subsequently he was transferred to the intensive care unit for closer monitoring, he remains awake and alert, denies any acute distress, mildly congested cough, no phlegm production. He is watching TV, he is comfortable. Denies any chest discomfort. His had no fever or chills overnight, he starting to diurese. He still refuses to wear BiPAP, with deep breathing has pulse ox comes up to 96%. He will be given an incentive spirometer. Today's labs are still pending. Patient has been on GI and DVT prophylaxis with oral Pepcid and heparin 5000 units every 12 hours subcu. His d-dimer was elevated on admission, but CTA chest was completed showing no evidence of pulmonary embolism, lower extremity Dopplers were negative for DVT in the limitation of the study. On 12/23/2021, I'm seeing the patient for a follow-up. The patient remains on A irvo 60 L an FiO2 of 90%. The patient is able to maintain a pulse ox of above 88%. No signs of any significant respiratory distress. No significant cough sputum production chest vessel wheezing. The patient is having some oral dryness. The input output balance has been negative in the order of 1044 mL over the past 24 hours. The patient remains on IV Lasix 40 mg IV push every 12 hours and the patient is also on Aldactone 12.5 mg by mouth daily and the patient is also on Diamox 250 mg IV every 12 hours. The electrolytes from today shows a sodium of 136, serum bicarbonate 40, BUN is 25 with creatinine 0.8. Potassium level is at 4.0. The white cell count is at 9.7 with a hemoglobin of 15.9 and a platelet count of 206. The chest x-ray from today shows interstitial edema/CHF and cardiomegaly. The blood gases obtained yesterday showed a pH of 7.33 with an episode of 82 and this is consistent with an acute on top of chronic hypercapnic respiratory failure. The patient's pO2 was at 59 and this was done while the patient on Airvo 60 L an FiO2 of 90%. 12/24/2021, I'm seeing the patient for a follow-up. He is comfortable. Upon doing some breathing exercises and deep breathing, the patient is able to bring up his oxygen saturation up to 97%. This further supports presence of significant amount of atelectasis in lung bases. Based on that, I made recommendations to set up this patient on a chair and be more aggressive with his pulmonary toileting. He remains on Airvo 60 L with an FiO2 of 90%. The patient is still on Lasix and Diamox. Overall fluid balance is -1.98 his over the past 24 hours. Serum bicarbonate 41. BUN is at 29 with a creatinine of 0.89. He is doing well. He denies having any respiratory distress. No significant cough sputum production chest that is so wheezing. He is tolerating his diet. No other issues otherwise for now. 12/25/2021, seeing the patient for a follow-up. Patient is doing well. Remains on Airvo 60 L with an FiO2 of 90%. Continues to undergo aggressive diuresis and aggressive pulmonary toileting. The patient was provided incentive spirometer. The patient was also most on a chair when he was able to breathe more com fortably. Overall fluid balance has been negative at least 1 L over the past 24 hours and the patient is headed towards a negative fluid balance over the next 24 hours. His serum bicarbonate 40. BUN is at 29 with a creatinine of 0.89. Meanwhile, the patient is still on Lasix 40 mg IV every 12 hours. The patient is also receiving Diamox. The patient on Aldactone. Potassium level is at 3.6 and this being replaced per protocol. Oxidation is improved and the patient's pulse is 97% on above-mentioned Airvo setting. He is awake. He is alert. He is not showing any signs of any respiratory distress. 12/26/2021, I'm seeing the patient for a follow-up. The patient remains on Airvo 60 L with an FiO2 of 75%. The patient was being diuresed with IV Lasix and as of yesterday, the patient developed a diminished urine output. He also developed an acute kidney injury in the creatinine was up to 1.5 from today. Meanwhile, his net fluid balance is still negative around 2.2 L over the past 24 hours. Urine output slowed down initially and then it picked up again. His weight is down 219 kg. Based on all this, I decided to stop the diuretics for 24 hours. Give the patient 500 mL of bolus. He is still the same condition. His chest x-ray still showing pulmonary edema. No nausea. No vomiting. No diarrhea. No abdominal pain. No change in his mentation above and beyond his baseline. No other significant events otherwise for now.. He is using incentive spirometer. 12/27/2021, I'm seeing the patient for a follow-up. The patient was taken off the diuretic as the patient had a rise in the creatinine up to 1.5. On today's evaluation, he is still negative fluid balance of 270 mL in the creatinine is down to 0.9. He is still on Airvo with 15 L with an FiO2 of 70%. I tried to drop down further and is able settings and the patient desaturated and his pulse ox dropped down to the low 80s. His chest x-ray remains unchanged and there is increased vessel markings and pulmonary edema still present. Lasix will be started today and a dose of Lasix was given this morning 40 mg IV push. Doing well. No new complaints. Using incentive spirometer. Aggressive pulmonary to ileting is being done. No other significant events overnight otherwise for now. On his blood work, the patient has a white cell count of 8.6 with a hemoglobin 14.8. BUN is at 49 with a creatinine of 0.9 and sodium level is at 133 and a serum bicarb is at 35. 12/28/2021, I'm seeing the patient for a follow-up. The patient is still on Airvo. Overnight, the patient started desaturating and the patient was placed back again on high flow oxygen 6 L an FiO2 of 80% this morning. Renal function is normalized and the creatinine is down to 0.67 and the patient remains in a negative fluid balance. Overall fluid balance is -2.6 L over the past 24 hours. I strictly believe that the patient is hypoventilating and the patient has significant atelectatic changes in lung bases as the patient is able to generate a pulse ox of 97% with few deep breaths. The chest x-ray remains unchanged. Renal function is normalized. Based on that, I'm resuming diuretics again on this patient. He is awake and alert. He is interactive. Electrodes are stable. Serum bicarb is at 35. On today's evaluation to be an is 27 with a creatinine of 0.6. The white cell count is 7.9. He is afebrile. He is hemod ynamically stable at this point in time. 12/29/2021, I'm seeing the patient for a follow-up. The patient is doing well and currently is down to 5 L of oxygen by nasal cannula. IV Lasix was restarted yesterday and the patient developed a negative fluid balance of 2.6 L over the past 24 hours. Doing well. No specific complaints. No respiratory distress. BUN is at 30 with a creatinine of 0.7 and sodium level is at 136. No chest pain. Chest x-ray showing improvement in interstitial edema volume status. No other significant events overnight. Renal function is stable for now. The patient recovers from acute kidney injury. The patient is seen today 12/30/2021 in follow-up on the regular medical floor. He is currently sitting up in a chair at the bedside. Awake and alert in no acute distress. Watching TV. He is maintaining good O2 saturations in the 90s on 10 L high flow nasal cannula. He's been afebrile. Hemodynamically stable. No new labs today. No new chest x-ray today. He is continued on DuoNeb inhalations, Symbicort. Heparin for DVT prophylaxis. The patient is seen today 01/03/2020 to follow-up on the regular medical floor. He is awake and alert in no acute distress. Quite interactive today. Sitting up in a chair at the bedside. Maintaining good O2 saturations in the 90s on 6 L high flow nasal cannula. He's been afebrile. Hemodynamically stable. Chest x- ray reveals bandlike areas of increased attenuation, prominent interstitium again noted greater in the lung bases. No evidence of pneumothorax or pleural effusion. Stable compared to previous. White count 8.1. Hemoglobin 13.3. Platelet count 273. Sodium 138. Potassium 4.8. Bicarb 33. BUN 26. Creatinine 0.5. He remains on DuoNeb inhalations, Symbicort, oral diuretics. Objective - Vital Signs Vital signs: Vital Signs Temp 97.8 F 01/02/22 11:34 Pulse 72 01/02/22 11:34 Resp 24 01/02/22 11:34 BP 110/70 01/02/22 11:34 Pulse Ox 90 L 01/02/22 11:34 Intake & Output 01/01/22 01/02/22 01/02/22 18:59 06:59 18:59 Intake Total 600 900 Output Total 1700 1000 Balance -1100 -100 Intake: Oral 600 900 Output: Urine 1700 1000 Other: Voiding Method Indwelling Catheter Indwelling Catheter - Exam GENERAL EXAM: Awake and alert, 46-year-old male with typical features of Down syndrome, up in a chair at the bedside, currently on 6 L of oxygen nasal cannula HEAD: Normocephalic/atraumatic. EYES: Normal reaction of pupils, equal size. Conjunctiva pink, sclera white. NOSE: Clear with pink turbinates. THROAT: No erythema or exudates. NECK: No masses, no JVD, no thyroid enlargement, no adenopathy. CHEST: No chest wall deformity. Symmetrical expansion. LUNGS: Equal air entry with diminished breath sounds, bibasilar crackles CVS: Regular rate and rhythm, normal S1 and S2, no gallops, no murmurs, no rubs ABDOMEN: Soft, nontender. No hepatosplenomegaly, normal bowel sounds, no guarding or rigidity. EXTREMITIES: No clubbing, no lower extremity edema no cyanosis, 2+ pulses and upper and lower extremities. MUSCULOSKELETAL: Muscle strength and tone normal. SPINE: No scoliosis or deformity SKIN: No rashes CENTRAL NERVOUS SYSTEM: Awake and alert, No focal deficits, tone is normal in all 4 extremities. - Labs CBC & Chem 7: 01/02/22 05:56 01/02/22 05:56 Labs: Abnormal Lab Results - Last 24 Hours (Table) 01/02/22 01/02/22 Range/Units 05:56 05:56 MCV 100.2 H (80.0-97.0) fL MCHC 29.4 L (32.0-37.0) g/dL RDW 25.0 H (11.5-14.5) % Immature Gran # 0.12 H (0.00-0.04) X 10*3/uL Carbon Dioxide 33.5 H (20.0-27.5) mmol/L Anion Gap 8.50 L (10.00-18.00) mmol/L Creatinine 0.5 L (0.6-1.5) mg/dL BUN/Creatinine Ratio 53.00 H (12.00-20.00) Ratio Assessment and Plan Assessment: 1 Acute hypoxemic respiratory failure secondary to an acute exacerbation of diastolic congestive heart failure. Echocardiogram with preserved left ventricular systolic function. No evidence of pulmonary embolism. No clear evidence of aspiration pneumonia. 2 Acute hypercapnic respiratory failure secondary to obesity/hypoventilation syndrome 3 Obstructive sleep apnea intolerant to CPAP 4 Morbid obesity with a BMI of 43.7 kg per metered squared 5 History of Down syndrome 6 Hyperlipidemia 7 Recent hospitalization for nearly one month secondary to hypoxemic/hypercapnic respiratory failure with acute lung injury and diastolic congestive heart failure Plan: The patient was seen and evaluated Chest x-ray and labs reviewed Doing well and up in a chair at the bedside Currently on 6 L high flow nasal cannula Titrate the FiO2 as tolerated Continue diuretics, bronchodilators Aspiration precautions We will continue to follow I have personally seen and examined the patient, performed the documentation and the assessment and plan as written. Number of minutes spent on the visit: 10.
--- NOTE | 2022-01-02 15:03 | P.PN ---
Subjective This is a pleasant 46 years old male with past medical history of Asthma, GERD/Reflux, Hyperlipidemia, Memory Impairment, Down syndrome/IQ of about 74, chronic feet issue d/t gout, SHARRI but pt unable to tolerate CPAP Patient is poor historian, sitting in bed eating his breakfast with no difficulty on high flow nasal cannula, he can tell me he is in the hospital but he could not recognize which hospital, the date or the name of the president. When I ask her most recently came to the hospital he points to his right forearm block stating it is because of this. However patient states that his breathing is better now and he denies chest pain or abdominal pain or any other complaints He denies smoking, alcohol or illicit drugs. Patient is hypoxic on the presentation, with oxygen saturating 88% on 4 L and 82% on 50 L, currently on high flow nasal cannula 55%. Afebrile, tachypneic. Has leukocytosis of 11.7, rest of CBC is unremarkable. INR is 1.2 D-dimer is 3.4. BMP is unremarkable, liver enzymes significantly elevated with AST 642 and ALT 1133. Troponin is elevated at 0.4 and 0.2. Urine analysis is not suspicious of infection. Coronal versus nondetected. EKG: Normal sinus rhythm at [address]-T abnormality. Patient was started on aspirin 325 mg, IV Lasix and then oral Lasix 40 mg every 8 hours, bronchodilator. With cardiology team consulted Echocardiogram done on 09/2021 showing preserved ejection fraction of 50-55%. 12/17/2021 Can awake but sleepy, he follows commands. He still slightly tachypneic. He remains on high flow oxygen via nasal cannula at 60 L/m. Chest x-ray showed slight increase in the mid and lower lung zones Pro-calcitonin only mildly elevated 0.12, proBNP is normal which goes against CHF at 323 We are going to recheck cold, influenza and RSV 12/18/2021 Patient is awaken although is sleeping a lot. He looks pleasant and answer questions however he looks confused for example when asking is this year house he said yes. History of on airvo Quiring 60 L/M with 90% oxygen. He is has proximal area with unknown reason. This Procalcitonin and proBNP are both low level. CTA is negative for PE. There is no evidence of wheezing. His CTA showing bilateral infiltrates and obesity may contribute to factor. Pulmonary and cardiology team on the case Currently he is on oral Lasix 40 mg twice a day, aspirin 325 mg and subcu heparin Viral test for Covid, influenza and RSV came back negative 12/19/2021 Sleepy and drowsy most of the time, he is tachypneic, he still requiring oxygen supplementation at 55 L with saturation of 88%. ABG today showing compensated hypercapnia with pH normal at 7.3 and pCO2 elevated 77. PO2 is 74. ABG bicarb is 45 which is elevated. Also BMP is showing evidence of contraction alkalosis with elevated carbon dioxide 43 and elevated BUN/creatinine ratio 21/0.77. Lasix dose will be held today. Pulmonary and cardiology team on the case. Chest x-ray today showing pneumonia versus fibrotic changes/scar We will repeat pro-calcitonin, patient currently is not on antibiotic, he is on by mouth Lasix 40 mg daily and a stent of twice a day 12/20/2021 patient remains on oxygen, history of on airvo at 55 L/m with 88% His pro-calcitonin is 0.12, we going to repeat , His ABG showed normal pH 7.3, high pCO2 77 and low PaO2 74. He remains on diuretic, pulmonary cartilage team on the case 12/21/2021 Patient is more awake today he is alert still confused he follow commands with simple instructions only. It looks like he has some elements of dementia and memory impairment. Remains on airvo with 50 L and FiO2 of 83% His pro-calcitonin with repeated is normal 0.08. Chest x-ray showing atelectasis versus pneumonia Remains on Acetazolamide, oral Lasix once daily at 40 mg. And aspirin 325 mg 12/22/2021 Patient was transferred to the ICU for worsening hypoxia, he is awake and alert, follows simple commands but it looks almost at baseline. He does not talk much. He does not look in respiratory distress. His oxygen requirements increased back to 60 L/m at 90%. he is saturating at 94% His chest x-ray showing pneumonia versus scarring versus atelectasis His pH is 7.3 pCO2 82 and pO2 is 59 which is low. ProBNP is 191 Patient is refusing to wear BiPAP His Lasix to switch from oral and IV. Continued on aspirin 325 mg and acetazolamide. Subjective: Resuming with the care of the patient today 01/01/2022 Patient respiratory status improving and his oxygen requirements down from 10 L down to 60 Per minute Lasix is switch to 40mg by mouth twice a day Possible discharge in 24-48 hours if he keeps improving 01/02/2022 patient still on 6 L per minute of oxygen, patient can be discharged once his requirements go down to 5 L/m, his saturation is 90% so still needs monitoring for now.. pulmonary on the case Bose catheter will be discontinued today upon patient request. He is able to walk the hole using his cane. Objective - Vital Signs Vital signs: Vital Signs Temp 98.1 F 01/02/22 05:55 Pulse 74 01/02/22 08:15 Resp 20 01/02/22 05:55 BP 95/54 01/02/22 08:15 Pulse Ox 94 L 01/02/22 08:04 Intake & Output 01/01/22 01/02/22 01/02/22 18:59 06:59 18:59 Intake Total 600 900 Output Total 1700 1000 Balance -1100 -100 Intake: Oral 600 900 Output: Urine 1700 1000 Other: Voiding Method Indwelling Catheter Indwelling Catheter - Exam -GENERAL: The patient is alert and oriented x3, drowsy, not in any acute distress. Obese, generally tired HEENT: Pupils are round and equally reacting to light. EOMI. No scleral icterus. No conjunctival pallor. Normocephalic, atraumatic. No pharyngeal erythema. No thyromegaly. CARDIOVASCULAR: S1 and S2 present. No murmurs, rubs, or gallops. -PULMONARY: Chest is clear to auscultation, no wheezing or crackles. Mildly tachypneic ABDOMEN: Soft, nontender, nondistended, normoactive bowel sounds. No palpable organomegaly. MUSCULOSKELETAL: No joint swelling or deformity. EXTREMITIES: No cyanosis, clubbing, or pedal edema. NEUROLOGICAL: Gross neurological examination did not reveal any focal deficits. SKIN: No rashes. no petechiae. - Labs CBC & Chem 7: 01/02/22 05:56 01/02/22 05:56 Labs: Abnormal Lab Results - Last 24 Hours (Table) 01/02/22 01/02/22 Range/Units 05:56 05:56 MCV 100.2 H (80.0-97.0) fL MCHC 29.4 L (32.0-37.0) g/dL RDW 25.0 H (11.5-14.5) % Immature Gran # 0.12 H (0.00-0.04) X 10*3/uL Carbon Dioxide 33.5 H (20.0-27.5) mmol/L Anion Gap 8.50 L (10.00-18.00) mmol/L Creatinine 0.5 L (0.6-1.5) mg/dL BUN/Creatinine Ratio 53.00 H (12.00-20.00) Ratio Assessment and Plan Assessment: Hypoxia, acute. Of unknown etiology. Elevated troponin , glass curvature gauger on the case elevated d-dimer with no evidence of PE or DVT Elevated liver enzymes , improving CTA of the chest showing no pulmonary embolism, moderate pulmonary interstitial edema in the mid and lower lung colon Memory problem most likely related to yearly Alzheimer's dementia, given his history of Down syndrome. Down syndrome History of asthma History of GERD History of memory impairment History of obstructive sleep apnea, not on CPAP, cannot tolerate. History of gout Plan: This is a pleasant 46 years old male with Down syndrome who presents with acute CHF Continue with Lasix 40 mg PO twice a day Continue with aspirin cardiology team consult Pulmonary team consult Labs and medication were reviewed.. Continue same treatment. Continue with symptomatic treatment. Resume home medication. Monitor lytes and vitals. DVT and GI prophylaxis. Further recommendations as per clinical course of the patient DVT prophylaxis: Subcutaneous heparin GI Prophylaxis: Pepcid PT/OT: Pending Prognosis is guarded
[2022-01-02] MEDS: ACETAMINOPHEN TAB 325 MG TAB PO PRN (15:22)
[2022-01-03] MEDS: SYMBICORT 160-4.5 MCG INHALER INHALATION SCH ×2 (08:12→19:55)
[2022-01-03] MEDS: IPRATROPIUM-ALBUTEROL 3 ML NEB INHALATION SCH ×4 (08:12→19:55)
[2022-01-03] MEDS: FAMOTIDINE 20 MG TAB PO SCH (08:30)
[2022-01-03] MEDS: ASPIRIN 81 MG PO SCH (08:30)
[2022-01-03] MEDS: polyethylene glycoL 3350 17 GM POWD.PACK PO SCH (08:30)
[2022-01-03] MEDS: ATORVASTATIN 40 MG TAB PO SCH (08:30)
[2022-01-03] MEDS: FUROSEMIDE 40 MG TAB PO SCH (08:30)
[2022-01-03] MEDS: HEPARIN SODIUM,PORCINE/PF 5,000 UNIT/0.5 ML SYRINGE SQ SCH (08:30)
--- NOTE | 2022-01-03 11:58 | P.PN ---
Subjective Progress Note Date: 01/03/22 This is a pleasant 46-year-old male patient with a history of Down syndrome, diastolic congestive heart failure, recurrent aspiration pneumonias, obstructive sleep apnea intolerant to CPAP, hyperlipidemia, gastroesophageal reflux disease. He follows with Dr. Quintanilla as his primary care provider. He was recently here for almost a month for multifactorial issues regarding shortness of breath secondary to diastolic congestive heart failure aspiration pneumonia and hypoventilation syndrome. He was discharged on 11/13/2021. He was brought back to the emergency room yesterday with increasing shortness of breath. X-ray showed progressive patchy perihilar and basilar infiltrates compared to 11/11/2021. CT angiogram revealed no evidence of pulmonary embolism. There is moderate pulmonary interstitial edema in the mid and lower lung colon. Previous echocardiogram revealed preserved left ventricular systolic function with ejection fraction 50-55%. Lower extremities negative for DVTs. White coun t 11.7. Hemoglobin 14.8. INR 1.2. D-dimer 3.44. Sodium 134. Potassium 3.9. Chloride 87. Bicarb 42. BUN 18. Creatinine 0.61. Glucose 143. Troponins 0.40, 0.28, 0.25. ProBNP 3290. Urinalysis clean. Chavira virus by PCR not detected. Pro-calcitonin pending. He's been initiated on DuoNeb inhalations, Symbicort. Lasix 40 mg by mouth every 8 hours. Aldactone. Progress note dated 12/17/2021. 46-year-old male with history of down syndrome, diastolic CHF, recurrent aspiration pneumonia, sleep apnea, hyperlipidemia, and GERD. His primary care physician is Dr. Quintanilla. He was recently here for almost a month for shortness of breath, secondary to CHF. At that time, he was also thought to have aspiration pneumonia. He was finally discharged on 11/13/2021. He was brought back to the emergency room, 2 days ago, with increasing shortness of breath, and diffuse bilateral infiltrates. There was no pulmonary embolism on CT angiogram. Currently, the patient is on AIRVO, at 60 L/m with an FiO2 of 90%. He's not receiving any IV fluids. His nurse held his nitroglycerin this morning, because his blood pressure was a bit soft. Labs today include a white count of 7.2, hemoglobin 15.8, hematocrit 51.7, and a platelet count of 188,000. Sodium was 138, potassium 3.9, chloride 99, CO2 37, anion gap 12, BUN 13, creatinine 0.57. AST was 164 and ALT was 591. Troponins were 0.282 and 0.255. Urine was negative. Chest x-ray was consistent with cardiomegaly, and pulmonary vascular congestion/CHF. On 12/18/2021 patient seen in follow-up on selective care unit, he is currently on Airvo at 60 L and FiO2 of 92% and his pulse ox is greater than 97% and this can probably be weaned further down, he is awake and alert, oriented 3, breathing comfortably he is resting in bed watching TV. He is pleasant and cooperative. he remains on oral Lasix at 40 mg every 12 hours, he is main taining negative fluid balance of -625 mL over the last 24 hours. Chest x-ray findings were consistent with acute exacerbation of CHF with known diastolic dysfunction, his CTA chest was negative for evidence of pulmonary embolism. It did show moderate pulmonary interstitial edema and mid and the lower lung colon. Patient continues on nebulized bronchodilators, he remains on Symbicort. Patient has no significant edema in his bilateral lower legs. Dopplers of the lower extremities were limited due to patient's body habitus, but within the limitation of the study there was no sonographic findings of DVT in the lower extremities. Today's labs have been reviewed, his white blood cell, 7.2, hemoglobin is 15.8, sodium is 138, potassium 3.9, chloride is 89, CO2 is 37, BUN 13 creatinine 0.57. Patient tested negative for COVID-19, influenza A and B and RSV. On 12/19/2021 patient seen in follow-up on selective care unit, he remains on high flow oxygen, per Airvo with 55 L and FiO2 of 85% and his pulse ox is 88- 94%. Patient is sleepy this morning however she arouses to voice, he answers simple questions, he feels very fatigued. Nursing reports that the patient does not sleep well at night and she was up until 4:00 in the morning area. Has been extensively diuresed, his IV Lasix has been switched to oral Lasix 40 mg twice daily however he appears to be dehydrated on clinical exam. His oral intake is fair, his appetite is good other than this morning she only consumed 25% of his meal because of being tired. Lung sounds are positive for bibasilar crackles, no rhonchi or wheezes, no significant edema involving his bilateral lower extremities, today's chest x-ray has been reviewed showing lung volumes, patchy bibasilar atelectasis or scarring, cardiomegaly. Today's labs have been reviewed showing white blood cell count is 7.8, hemoglobin of 15.9, sodium is 136, potassium is 4.5, chloride is 90, CO2 is 43, B1 is 21, creatinine 0.7, his LFTs are improved, AST is now within normal limits at 37, ALT is 252, and alkaline phosphatase is 93, his pro-calcitonin level came back negative at 0.12. Patient was tested negative for COVID-19 2, tested negative for influenza A and B, and RSV. On 12/20/2021 patient seen in follow-up on selective care unit, he is awake and alert, in no acute distress, he continues on Airvo at 55 L and FiO2 of 85% is pulse ox is around 96%, breathing comfortably, lung sounds are diminished, clear no crackles, no rhonchi he continues on oral Lasix 40 mg once daily and he is in -1.5 L net fluid balance over the last 24 hours, he continues on Aldactone 12.5 mg daily, and yesterday we gave the patient 2 doses of oral Diamox 250 mg twice daily. Today's labs including electrolytes and renal profile are still pending, vital signs have been stable overnight, no fever or chills, occasional cough, no phlegm production. No complaints of chest discomfort. His yesterday's chest x- ray showed low lung volumes, no pneumothorax or pleural effusion. Patchy bilateral airspace disease. On 12/21/2021 patient seen in follow-up on selective care unit, he is awake and alert, in no acute distress, remains on Airvo at 50 L and FiO2 of 80%, and his pulse ox is 92%, he is breathing quite comfortably, he remains on once daily dose of oral Lasix 40 mg, remains on Aldactone, he is in negative 1.3 L net fluid balance over the last 24 hours. Today's chest x-ray showing patchy basilar densities, and stable cardiomegaly. Today's labs have been reviewed, sodium is 137, potassium is 4.3, chloride is 98, CO2 is 37, BUN is 20 creatinine 0.72. Patient denies any worsening dyspnea, cough or chest discomfort. On 12/22/2021 rapid response team was called in view of worsening hypoxia, patient has been on Airvo at 50 L and FiO2 of 80%, and he was noted to have O2 saturations in the low 80s, and subsequently his Airvo flow was increased to 60 L and FiO2 of 90% and patient was also placed on in the 100% nonrebreather mask and continued to have low O2 saturations at around 83%. Patient is awake, she still refuses to wear the BiPAP, he is crying, but he is responding appropriately, does not appear to be in any acute distress. He had been on oral dose Lasix once daily, on Aldactone and once daily dose of Diamox 250 mg. Patient has been maintaining negative fluid balance over the last several days, and the last 24 hours he is in -1044 mL negative net fluid balance, today's chest x-ray showing cardiomegaly, low lung volumes, no evident pneumothorax, tidal patchy attenuation possibly related to atelectasis or interstitial edema. Patient was given an additional dose of IV Lasix 40 mg this morning, Bose catheter has been inserted and patient has put out over a liter in urine output. Subsequently he was transferred to the intensive care unit for closer monitoring, he remains awake and alert, denies any acute distress, mildly congested cough, no phlegm production. He is watching TV, he is comfortable. Denies any chest discomfort. His had no fever or chills overnight, he starting to diurese. He still refuses to wear BiPAP, with deep breathing has pulse ox comes up to 96%. He will be given an incentive spirometer. Today's labs are still pending. Patient has been on GI and DVT prophylaxis with oral Pepcid and heparin 5000 units every 12 hours subcu. His d-dimer was elevated on admission, but CTA chest was completed showing no evidence of pulmonary embolism, lower extremity Dopplers were negative for DVT in the limitation of the study. On 12/23/2021, I'm seeing the patient for a follow-up. The patient remains on A irvo 60 L an FiO2 of 90%. The patient is able to maintain a pulse ox of above 88%. No signs of any significant respiratory distress. No significant cough sputum production chest vessel wheezing. The patient is having some oral dryness. The input output balance has been negative in the order of 1044 mL over the past 24 hours. The patient remains on IV Lasix 40 mg IV push every 12 hours and the patient is also on Aldactone 12.5 mg by mouth daily and the patient is also on Diamox 250 mg IV every 12 hours. The electrolytes from today shows a sodium of 136, serum bicarbonate 40, BUN is 25 with creatinine 0.8. Potassium level is at 4.0. The white cell count is at 9.7 with a hemoglobin of 15.9 and a platelet count of 206. The chest x-ray from today shows interstitial edema/CHF and cardiomegaly. The blood gases obtained yesterday showed a pH of 7.33 with an episode of 82 and this is consistent with an acute on top of chronic hypercapnic respiratory failure. The patient's pO2 was at 59 and this was done while the patient on Airvo 60 L an FiO2 of 90%. 12/24/2021, I'm seeing the patient for a follow-up. He is comfortable. Upon doing some breathing exercises and deep breathing, the patient is able to bring up his oxygen saturation up to 97%. This further supports presence of significant amount of atelectasis in lung bases. Based on that, I made recommendations to set up this patient on a chair and be more aggressive with his pulmonary toileting. He remains on Airvo 60 L with an FiO2 of 90%. The patient is still on Lasix and Diamox. Overall fluid balance is -1.98 his over the past 24 hours. Serum bicarbonate 41. BUN is at 29 with a creatinine of 0.89. He is doing well. He denies having any respiratory distress. No significant cough sputum production chest that is so wheezing. He is tolerating his diet. No other issues otherwise for now. 12/25/2021, seeing the patient for a follow-up. Patient is doing well. Remains on Airvo 60 L with an FiO2 of 90%. Continues to undergo aggressive diuresis and aggressive pulmonary toileting. The patient was provided incentive spirometer. The patient was also most on a chair when he was able to breathe more com fortably. Overall fluid balance has been negative at least 1 L over the past 24 hours and the patient is headed towards a negative fluid balance over the next 24 hours. His serum bicarbonate 40. BUN is at 29 with a creatinine of 0.89. Meanwhile, the patient is still on Lasix 40 mg IV every 12 hours. The patient is also receiving Diamox. The patient on Aldactone. Potassium level is at 3.6 and this being replaced per protocol. Oxidation is improved and the patient's pulse is 97% on above-mentioned Airvo setting. He is awake. He is alert. He is not showing any signs of any respiratory distress. 12/26/2021, I'm seeing the patient for a follow-up. The patient remains on Airvo 60 L with an FiO2 of 75%. The patient was being diuresed with IV Lasix and as of yesterday, the patient developed a diminished urine output. He also developed an acute kidney injury in the creatinine was up to 1.5 from today. Meanwhile, his net fluid balance is still negative around 2.2 L over the past 24 hours. Urine output slowed down initially and then it picked up again. His weight is down 219 kg. Based on all this, I decided to stop the diuretics for 24 hours. Give the patient 500 mL of bolus. He is still the same condition. His chest x-ray still showing pulmonary edema. No nausea. No vomiting. No diarrhea. No abdominal pain. No change in his mentation above and beyond his baseline. No other significant events otherwise for now.. He is using incentive spirometer. 12/27/2021, I'm seeing the patient for a follow-up. The patient was taken off the diuretic as the patient had a rise in the creatinine up to 1.5. On today's evaluation, he is still negative fluid balance of 270 mL in the creatinine is down to 0.9. He is still on Airvo with 15 L with an FiO2 of 70%. I tried to drop down further and is able settings and the patient desaturated and his pulse ox dropped down to the low 80s. His chest x-ray remains unchanged and there is increased vessel markings and pulmonary edema still present. Lasix will be started today and a dose of Lasix was given this morning 40 mg IV push. Doing well. No new complaints. Using incentive spirometer. Aggressive pulmonary to ileting is being done. No other significant events overnight otherwise for now. On his blood work, the patient has a white cell count of 8.6 with a hemoglobin 14.8. BUN is at 49 with a creatinine of 0.9 and sodium level is at 133 and a serum bicarb is at 35. 12/28/2021, I'm seeing the patient for a follow-up. The patient is still on Airvo. Overnight, the patient started desaturating and the patient was placed back again on high flow oxygen 6 L an FiO2 of 80% this morning. Renal function is normalized and the creatinine is down to 0.67 and the patient remains in a negative fluid balance. Overall fluid balance is -2.6 L over the past 24 hours. I strictly believe that the patient is hypoventilating and the patient has significant atelectatic changes in lung bases as the patient is able to generate a pulse ox of 97% with few deep breaths. The chest x-ray remains unchanged. Renal function is normalized. Based on that, I'm resuming diuretics again on this patient. He is awake and alert. He is interactive. Electrodes are stable. Serum bicarb is at 35. On today's evaluation to be an is 27 with a creatinine of 0.6. The white cell count is 7.9. He is afebrile. He is hemod ynamically stable at this point in time. 12/29/2021, I'm seeing the patient for a follow-up. The patient is doing well and currently is down to 5 L of oxygen by nasal cannula. IV Lasix was restarted yesterday and the patient developed a negative fluid balance of 2.6 L over the past 24 hours. Doing well. No specific complaints. No respiratory distress. BUN is at 30 with a creatinine of 0.7 and sodium level is at 136. No chest pain. Chest x-ray showing improvement in interstitial edema volume status. No other significant events overnight. Renal function is stable for now. The patient recovers from acute kidney injury. The patient is seen today 12/30/2021 in follow-up on the regular medical floor. He is currently sitting up in a chair at the bedside. Awake and alert in no acute distress. Watching TV. He is maintaining good O2 saturations in the 90s on 10 L high flow nasal cannula. He's been afebrile. Hemodynamically stable. No new labs today. No new chest x-ray today. He is continued on DuoNeb inhalations, Symbicort. Heparin for DVT prophylaxis. The patient is seen today 01/03/2020 to follow-up on the regular medical floor. He is awake and alert in no acute distress. Quite interactive today. Sitting up in a chair at the bedside. Maintaining good O2 saturations in the 90s on 6 L high flow nasal cannula. He's been afebrile. Hemodynamically stable. Chest x- ray reveals bandlike areas of increased attenuation, prominent interstitium again noted greater in the lung bases. No evidence of pneumothorax or pleural effusion. Stable compared to previous. White count 8.1. Hemoglobin 13.3. Platelet count 273. Sodium 138. Potassium 4.8. Bicarb 33. BUN 26. Creatinine 0.5. He remains on DuoNeb inhalations, Symbicort, oral diuretics. The patient is seen today 01/04/2020 in follow-up on the regular medical floor. He is currently sitting up in bed. Awake and alert. Interactive. Currently on 5 L high flow nasal cannula with O2 saturation 96%. He is afebrile. Hemodynamically stable. No new labs today. He is continued on DuoNeb inhalati ons, Symbicort. Remains on oral diuretics. Heparin for DVT prophylaxis. Objective - Vital Signs Vital signs: Vital Signs Temp 97.9 F 01/03/22 04:20 Pulse 71 01/03/22 04:20 Resp 22 01/03/22 04:20 BP 120/60 01/03/22 04:20 Pulse Ox 96 01/03/22 04:20 Intake & Output 01/02/22 01/03/22 01/03/22 18:59 06:59 18:59 Intake Total 960 1620 Output Total 1200 400 Balance -240 1220 Intake: Oral 960 1620 Output: Urine 1200 400 Uretheral (Bose) 1200 Other: Voiding Method Indwelling Catheter Urinal Urinal # Voids 4 - Exam GENERAL EXAM: Awake and alert, 46-year-old male with typical features of Down syndrome, currently on 5 L of oxygen nasal cannula HEAD: Normocephalic/atraumatic. EYES: Normal reaction of pupils, equal size. Conjunctiva pink, sclera white. NOSE: Clear with pink turbinates. THROAT: No erythema or exudates. NECK: No masses, no JVD, no thyroid enlargement, no adenopathy. CHEST: No chest wall deformity. Symmetrical expansion. LUNGS: Equal air entry with diminished breath sounds, bibasilar crackles CVS: Regular rate and rhythm, normal S1 and S2, no gallops, no murmurs, no rubs ABDOMEN: Soft, nontender. No hepatosplenomegaly, normal bowel sounds, no guarding or rigidity. EXTREMITIES: No clubbing, no lower extremity edema no cyanosis, 2+ pulses and upper and lower extremities. MUSCULOSKELETAL: Muscle strength and tone normal. SPINE: No scoliosis or deformity SKIN: No rashes CENTRAL NERVOUS SYSTEM: Awake and alert, No focal deficits, tone is normal in all 4 extremities. - Labs CBC & Chem 7: 01/02/22 05:56 01/02/22 05:56 Assessment and Plan Assessment: 1 Acute hypoxemic respiratory failure secondary to an acute exacerbation of diastolic congestive heart failure. Echocardiogram with preserved left ventric ular systolic function. No evidence of pulmonary embolism. No clear evidence of aspiration pneumonia. 2 Acute hypercapnic respiratory failure secondary to obesity/hypoventilation syndrome 3 Obstructive sleep apnea intolerant to CPAP 4 Morbid obesity with a BMI of 43.7 kg per metered squared 5 History of Down syndrome 6 Hyperlipidemia 7 Recent hospitalization for nearly one month secondary to hypoxemic/hypercapnic respiratory failure with acute lung injury and diastolic congestive heart failure Plan: The patient was seen and evaluated Currently on 5 L high flow nasal cannula Titrate the FiO2 as tolerated Continue diuretics, bronchodilators Aspiration precautions Plan is for home with home care Cleared for discharge from the pulmonary standpoint I have personally seen and examined the patient, performed the documentation and the assessment and plan as written. Number of minutes spent on the visit: 10.
[2022-01-03 12:00] VITALS: BMI 44.6
[2022-01-03 13:19] VITALS: BP 129/66; PULSE 75; RESP 24; TEMP 97.6
--- NOTE | 2022-01-03 22:23 | P.DS ---
Providers Date of admission: 12/15/21 20:10 Attending physician: Salazar Matias Consults: 12/16/21 06:38 Consult Physician Urgent Consulting Provider: Josafat Ames Reason/Comments: hypoxia Do you want consulting provider notified?: Yes Primary care physician: Katelyn Quintanilla Hospital Course: Diagnoses: Acute diastolic CHF with ejection fraction 50-55% Acute hypoxic respiratory failure on chronic respiratory failure secondary to above improved and patient back to baseline Elevated troponin , secondary to CHF elevated d-dimer with no evidence of PE or DVT Elevated liver enzymes , improving CTA of the chest showing no pulmonary embolism, moderate pulmonary interstitial edema in the mid and lower lung colon Memory problem most likely related to yearly Alzheimer's dementia, given his history of Down syndrome. Down syndrome History of asthma History of GERD History of memory impairment History of obstructive sleep apnea, not on CPAP, cannot tolerate. History of gout Morbid obesity with BMI of 44.7 Hospital course: This is a pleasant 46 years old male with past medical history of Asthma, GERD/Reflux, Hyperlipidemia, Memory Impairment, Down syndrome/IQ of about 74, chronic feet issue d/t gout, SHARRI but pt unable to tolerate CPAP, Patient is poor historian mostly secondary to his dementia, presents with respiratory distress with acute hypoxia, he is on home oxygen at 2-4 L/m via nasal cannula on admission he needed high flow oxygen via nasal cannula at 60 L/m with 90% FiO2. Patient was treated with IV Lasix and gradually he was improving but took almost 3 weeks to resolve and go back to his baseline. His been followed closely by pulmonary service. Also cardiology team evaluated the patient. Today his back to his oxygen requirement of 4-5 L/m and patient appeared by pulmonology service for discharge. Patient was able to walk in his room in hallway using a cane, he has good appetite. His mobility significantly improved as well as his energy and mentation. However patient remains high risk for readmission and worsening again. Problems and management plan were discussed with the patient and he verbalized understanding and acceptance Patient was found stable and can be discharged home however he needs follow-up as an outpatient. Patient was instructed to follow up with PCP Dr. Quintanilla within one week and patient agrees Patient was informed to follow up with Dr. Ames in 1 week and with machine filler shredder Dr. Gardner in 1-2 weeks and he agrees Physical exam Gen: patient is a AAOx3, no distress. Morbidly obese CVS: S1-S2, RRR, no murmur Lungs: B/L CTA, no wheezing Abdomen: soft, no distention, no tenderness, positive bowel sounds Extremity: no leg edema or induration Time spent more than 35 minutes Patient Condition at Discharge: Fair Plan - Discharge Summary Discharge Rx Participant: No New Discharge Prescriptions: New lisinopriL [Zestril] 2.5 mg PO DAILY #30 tab Aspirin 81 mg PO DAILY #30 Furosemide [Lasix] 40 mg PO BID@0900,1600 #60 tab Continue Atorvastatin [Lipitor] 40 mg PO DAILY Famotidine [Pepcid] 20 mg PO DAILY Budesonide-Formot 160-4.5 Mcg [Symbicort 160-4.5 Mcg Inhaler] 2 puff INHALATION RT-BID 30 Days #1 gm Spironolactone [Aldactone] 25 mg PO MOWEFR Sodium Chloride 0.65% Nasal [Deep Sea (Saline)] 2 spr NASAL QID PRN PRN Reason: Dry Nasal Passages Ipratropium-Albuterol Nebulize [Duoneb 0.5 mg-3 mg/3 ml Soln] 3 ml INHALATION RT-QID 30 Days #90 ml Acetaminophen Tab [Tylenol] 650 mg PO Q6HR PRN tab PRN Reason: Mild Pain Or Fever > 100.5 Discharge Medication List Atorvastatin [Lipitor] 40 mg PO DAILY 01/11/16 [History] Famotidine [Pepcid] 20 mg PO DAILY 01/11/16 [History] Acetaminophen Tab [Tylenol] 650 mg PO Q6HR PRN tab 11/13/21 [Rx] Budesonide-Formot 160-4.5 Mcg [Symbicort 160-4.5 Mcg Inhaler] 2 puff INHALATION RT-BID 30 Days #1 gm 11/13/21 [Rx] Ipratropium-Albuterol Nebulize [Duoneb 0.5 mg-3 mg/3 ml Soln] 3 ml INHALATION RT-QID 30 Days #90 ml 11/13/21 [Rx] Sodium Chloride 0.65% Nasal [Deep Sea (Saline)] 2 spr NASAL QID PRN 12/15/21 [History] Spironolactone [Aldactone] 25 mg PO MOWEFR 12/15/21 [History] Aspirin 81 mg PO DAILY #30 01/03/22 [Rx] Furosemide [Lasix] 40 mg PO BID@0900,1600 #60 tab 01/03/22 [Rx] lisinopriL [Zestril] 2.5 mg PO DAILY #30 tab 01/03/22 [Rx] Follow up Appointment(s)/Referral(s): Josafat Ames DO [Doctor of Osteopathic Medicine] - 01/11/22 2:10 pm Katelyn Quintanilla MD [Primary Care Provider] - 01/09/22 12:00 pm Marcie Gardner MD [STAFF PHYSICIAN] - 2 Weeks (patient will have to call office and schedule own appt.) [facility] Visiting Nurse, [NON-STAFF] - Activity/Diet/Wound Care/Special Instructions: heart healthy diet , fluid and salt restriction activity is restricted till you see your doctor Discharge Disposition: HOME WITH HOME HEALTH SERVICES
== END 2022-01-03 19:55 | disposition home health service (06) | DRG 291 ==
LOC: EC 13:28 → 3SCARD 20:10 → EEVIPCON 20:10 → 3SCARD 21:44 → 2SICU 12-22 09:38 → 5NMEDONC 12-29 15:30
PROVIDERS: ADMIT Hospitalist; ATTEND Hospitalist
PROC: 5A0955A Assistance with Respiratory Ventilation, Greater than 96 Consecutive Hours, High Flow/Velocity Cannula (ICD-10-PCS; principal; 2021-12-15)
PROC: 5A09457 Assistance with Respiratory Ventilation, 24-96 Consecutive Hours, Continuous Positive Airway Pressure (ICD-10-PCS; 2021-12-15)
PROC: 05HC33Z Insertion of Infusion Device into Left Basilic Vein, Percutaneous Approach (ICD-10-PCS; 2021-12-26)
DX: I50.33 Acute on chronic diastolic (congestive) heart failure (principal); J96.21 Acute and chronic respiratory failure with hypoxia; J96.22 Acute and chronic respiratory failure with hypercapnia; N17.9 Acute kidney failure, unspecified; E87.3 Alkalosis; E66.2 Morbid (severe) obesity with alveolar hypoventilation; Z68.41 Body mass index [BMI] 40.0-44.9, adult; J98.11 Atelectasis; G30.0 Alzheimer's disease with early onset; F02.80 Dementia in other diseases classified elsewhere, unspecified severity, without behavioral disturbance, psychotic disturbance, mood disturbance, and anxiety; Z20.822 Contact with and (suspected) exposure to COVID-19; G47.33 Obstructive sleep apnea (adult) (pediatric); Q90.9 Down syndrome, unspecified; J45.909 Unspecified asthma, uncomplicated; E78.5 Hyperlipidemia, unspecified; K21.9 Gastro-esophageal reflux disease without esophagitis; T50.2X5A Adverse effect of carbonic-anhydrase inhibitors, benzothiadiazides and other diuretics, initial encounter; R77.8 Other specified abnormalities of plasma proteins; R41.83 Borderline intellectual functioning; R74.8 Abnormal levels of other serum enzymes; R79.89 Other specified abnormal findings of blood chemistry; Z77.22 Contact with and (suspected) exposure to environmental tobacco smoke (acute) (chronic); Z99.81 Dependence on supplemental oxygen; Z79.51 Long term (current) use of inhaled steroids; Z79.899 Other long term (current) drug therapy; Z86.69 Personal history of other diseases of the nervous system and sense organs; Z87.2 Personal history of diseases of the skin and subcutaneous tissue; Z87.39 Personal history of other diseases of the musculoskeletal system and connective tissue; Z87.01 Personal history of pneumonia (recurrent); Z98.890 Other specified postprocedural states; Z71.3 Dietary counseling and surveillance; Z83.79 Family history of other diseases of the digestive system; Z82.49 Family history of ischemic heart disease and other diseases of the circulatory system
CPT/HCPCS: 36410; 36415; 36600; 71045; 71046; 71275; 76937; 80048; 80053; 81003; 82805; 83605; 83735; 83880; 84145; 84443; 84484; 85025; 85027; 85379; 85610; 85730; 87502; 87634; 87635; 93005; 93306; 93970; 94640; 94660; 94760

== ENCOUNTER → 2022-01-09 | Outpatient (CLI) | payer MEDICARE, OTHER ==
--- NOTE | 2022-01-09 13:50 | XR ---
EXAMINATION TYPE: XR foot complete RT DATE OF EXAM: 01/09/2022 COMPARISON: 02/20/2019 HISTORY: Pain TECHNIQUE: Three views are submitted. FINDINGS: The osseous structures are intact. There is no acute fracture or dislocation. Severe arthropathy o f the first MTP joint with subluxation of the proximal phalanx relative to the metatarsal head. Small calcaneal spurs are seen. Preserved. IMPRESSION: 1. No acute fracture.. If symptoms persist, follow-up exam in 7 to 10 days could be obtained. 2. Complete loss of joint space of the first MTP joint with subluxation the proximal phalanx relative to the corresponding metatarsal which is similar appearance to the prior exam.
== END | disposition home or self-care (01) ==
LOC: RADXRYALE 13:24
PROVIDERS: ATTEND Internal Medicine
DX: M79.674 Pain in right toe(s) (principal)

== ENCOUNTER 2025-02-24 20:01 | Inpatient (IN) | payer MEDICARE, OTHER ==
[2025-02-24 20:41] LABS: VBG PH 7.33 (7.31-7.41)
[2025-02-24 20:42] LABS: Basophils # (A) 0.04 10*3/uL (0.00-0.10); Basophils % (A) 0.5 %; HCT 48.2 % (39.6-50.0); HGB 14.3 g/dL (13.0-17.0); Lymphocytes # (A) 0.46 10*3/uL (0.90-5.00); Lymphocytes % (A) 6.1 %; MCH 29.4 pg (27.0-32.0); MCHC 29.7 g/dL (32.0-37.0); Monocytes # (A) 0.07 10*3/uL (0.20-1.00); Monocytes % (A) 0.9 %; Neutrophils # (A) 6.83 10*3/uL (1.80-7.70); Neutrophils % (A) 90.1 %; Platelet Count 243 10*3/uL (140-440); RBC 4.87 10*6/uL (4.40-5.60); RDW 19.9 % (11.5-14.5); WBC 7.58 10*3/uL (4.50-10.00)
[2025-02-24 20:58] LABS: ALT 12 U/L (4-49); AST 18 U/L (17-59); African American GFR (CKD) 48 (>60 ml/min/1.73 sqM); Albumin 3.4 g/dL (3.5-5.0); Alkaline Phosphatase 62 U/L (38-126); Anion Gap 6 mmol/L; Blood Urea Nitrogen 60 mg/dL (9-20); Calcium 8.7 mg/dL (8.4-10.2); Carbon Dioxide 34 mmol/L (22-30); Chloride 94 mmol/L (98-107); Glucose 229 mg/dL (74-99); Non-African American GFR(CKD) 41 (>60 ml/min/1.73 sqM); Sodium 134 mmol/L (137-145); Total Bilirubin 0.5 mg/dL (0.2-1.3); Total Protein 7.2 g/dL (6.3-8.2)
[2025-02-24 21:07] LABS: NT-Pro-B-Type Natriuretic Pept 576 pg/mL
[2025-02-24 21:14] LABS: Potassium 7.4 mmol/L (3.5-5.1)
--- NOTE | 2025-02-24 21:17 | XR ---
EXAMINATION TYPE: XR chest 1V DATE OF EXAM: 02/24/2025 8:48 PM COMPARISON: Chest radiographs from 01/02/2022. CLINICAL INDICATION: Male, 49 years old with history of difficulty breathing; [facility] TECHNIQUE: XR chest 1V Frontal view of the chest. FINDINGS: Lungs/Pleura: No evidence of focal consolidation or pneumothorax. Blunting of the costophrenic angles is present. Pulmonary vascularity: Pulmonary vascular congestion. Heart/mediastinum: Cardiomediastinal silhouette is enlarged. Musculoskeletal: No acute osseous pathology. Other findings: None Lines/Tubes: IMPRESSION: Cardiomegaly, pulmonary vascular congestion and bilateral pleural effusions. Correlate with BNP for c ongestive heart failure. [facility], , 02/24/2025 9:15 PM
[2025-02-24] MEDS: ALBUTEROL NEBULIZED 2.5 MG/3 ML INHALATION STA (21:36)
[2025-02-24 22:08] LABS: Partial Thromboplastin Time 25.5 sec (22.0-30.0); Prothrombin Time 11.5 sec (10.0-12.5)
--- NOTE | 2025-02-24 22:41 | ED ---
SOB HPI - General Chief Complaint: Shortness of Breath Stated Complaint: DEANN Time Seen by Provider: 02/24/25 20:05 Source: EMS Mode of arrival: EMS Limitations: language barrier - History of Present Illness Initial Comments: 49-year-old male with past medical history of Down syndrome, chronic respiratory insufficiency who presents to the emergency department with shortness of breath. Patient is a transfer from [facility]. Patient has a history of CHF. He wears 3 L of oxygen at night. Today the patient was found to have his oxygen off at the facility and was saturating in the 70s. They reapplied his oxygen and administered a DuoNeb's breathing treatment and patient sats improved to 84%. They notified the patient should family practitioner who ordered Solu-Medrol, Lasix 40 mg IV, chest x-ray and labs. Patient had already been administered his 40 mg of oral Lasix this morning. Patient cannot provide any history - Related Data Home Medications Medication Instructions Recorded Confirmed Atorvastatin [Lipitor] 40 mg PO DAILY 01/11/16 02/25/25 Spironolactone [Aldactone] 25 mg PO DAILY 12/15/21 02/25/25 Amino Acids/Protein Hydrolys 1 applic TOPICAL BID 02/25/25 02/25/25 [Pro-Stat Awc Liquid] Ammonium Lactate Cream [Lac-Hydrin 1 applic TOPICAL BID 02/25/25 02/25/25 12% Cream] Ascorbic Acid [Vitamin C] 500 mg PO DAILY 02/25/25 02/25/25 Esomeprazole Magnesium [NexIUM] 20 mg PO BID 02/25/25 02/25/25 Fluoride (Sodium) [Prevident] 1 applic TOPICAL HS 02/25/25 02/25/25 Furosemide [Lasix] 40 mg PO DAILY 02/25/25 02/25/25 Miconzole Powder 2% 1 applic TOPICAL BID 02/25/25 02/25/25 Tamsulosin HCl [Flomax] 0.4 mg PO DAILY 02/25/25 02/25/25 Thiamine [Vitamin B-1] 100 mg PO DAILY 02/25/25 02/25/25 Previous Rx's Medication Instructions Recorded Aspirin 81 mg PO DAILY #30 01/03/22 lisinopriL [Zestril] 2.5 mg PO DAILY #30 tab 01/03/22 Allergies Allergy/AdvReac Type Severity Reaction Status Date / Time No Known Allergies Allergy Verified 02/25/25 09:00 Review of Systems ROS Statement: Those systems with pertinent positive or pertinent negative responses have been documented in the HPI. ROS Other: All systems not noted in ROS Statement are negative. Past Medical History Past Medical History: Asthma, Heart Failure, GERD/Reflux, Hyperlipidemia, Memory Impairment Additional Past Medical History / Comment(s): Down syndrome/IQ of about 74, chronic feet issue d/t gout, SHARRI but pt unable to tolerate CPAP, History of Any Multi-Drug Resistant Organisms: None Reported Past Surgical History: Ear Surgery Additional Past Surgical History / Comment(s): Tubes in ears, eye sx-family believes due to weak muscles, cyst removed from back Past Anesthesia/Blood Transfusion Reactions: No Reported Reaction Past Psychological History: No Psychological Hx Reported Smoking Status: Second hand smoke exposure Past Alcohol Use History: None Reported Past Drug Use History: None Reported - Past Family History Mother Family Medical History: Congestive Heart Failure (CHF), GERD/Reflux Additional Family Medical History / Comment(s): Vivienne General Exam Limitations: altered mental status (Developmental delay) General appearance: alert, in no apparent distress Head exam: Present: atraumatic, normocephalic, normal inspection Eye exam: Present: normal appearance, PERRL, EOMI. Absent: scleral icterus, conjunctival injection, periorbital swelling ENT exam: Present: normal exam, mucous membranes moist Neck exam: Present: normal inspection. Absent: tenderness, meningismus, lymphadenopathy Respiratory exam: Present: normal lung sounds bilaterally, rales, decreased breath sounds. Absent: respiratory distress, wheezes, rhonchi, stridor Cardiovascular Exam: Present: regular rate, normal rhythm, normal heart sounds. Absent: systolic murmur, diastolic murmur, rubs, gallop, clicks GI/Abdominal exam: Present: soft, normal bowel sounds. Absent: distended, tende rness, guarding, rebound, rigid Extremities exam: Present: normal inspection, full ROM, normal capillary refill. Absent: tenderness, pedal edema, joint swelling, calf tenderness Back exam: Present: normal inspection Neurological exam: Present: alert, CN II-XII intact Psychiatric exam: Present: normal affect, normal mood Skin exam: Present: warm, dry, intact, normal color. Absent: rash Course Vital Signs 02/24/25 02/24/2502/24/25 20:03 20:30 20:41 Temperature 98.4 F Pulse Rate 80 81 Respiratory 16 15 Rate Blood Pressure 124/80 108/94 O2 Sat by Pulse 94 L 97 Oximetry Fraction of 90 Inspired Oxygen (FIO2) 02/24/25 02/24/25 02/24/25 21:10 21:23 21:38 Temperature Pulse Rate 78 80 Respiratory 22 Rate Blood Pressure 107/51 O2 Sat by Pulse 100 Oximetry Fraction of 90 Inspired Oxygen (FIO2) 02/24/25 02/24/25 02/24/25 21:50 22:00 23:00 Temperature Pulse Rate 85 84 86 Respiratory 13 14 Rate Blood Pressure 122/90 91/51 O2 Sat by Pulse 94 L 95 Oximetry Fraction of Inspired Oxygen (FIO2) 02/24/25 02/24/25 23:36 23:45 Temperature Pulse Rate 75 Respiratory 14 Rate Blood Pressure 100/65 O2 Sat by Pulse 95 Oximetry Fraction of 90 Inspired Oxygen (FIO2) Medical Decision Making - Medical Decision Making Was pt. sent in by a medical professional or institution (RICHARD Fischer, STRANDING MACHINE OPERATOR, urgent care, hospital, or usp...) When possible be specific @ -Patient was sent in from [facility] Did you speak to anyone other than the patient for history (EMS, parent, family, police, friend...)? What history was obtained from this source @ -I spoke with EMS for history - states the patients oxygen sats at the facility were in the 80s Did you review nursing and triage notes (agree or disagree)? Why? @ -I reviewed and agree with nursing and triage notes Were old charts reviewed (outside hosp., previous admission, EMS record, old EKG, old radiological studies, urgent care reports/EKG's, usp records)? Report findings @ -I reviewed the findings from log from [facility]. Indicates that the patient was found with his oxygen Differential Diagnosis (chest pain, altered mental status, abdominal pain women, abdominal pain men, vaginal bleeding, weakness, fever, dyspnea, syncope, hea dache, dizziness, GI bleed, back pain, seizure, CVA, palpatations, mental health, musculoskeletal)? @ -Differential Dyspnea: Coronary syndrome, arrhythmia, tamponade, asthma, COPD, pulmonary embolism, pneumonia, pneumothorax, pulmonary effusion, anaphylaxis, diabetic ketoacidosis, flailed chest, pulmonary contusion, diaphragmatic rupture, anemia, neuromuscular, this is not meant to be an all-inclusive list. EKG interpreted by me (3pts min.). @ -EKG completed at 2011 demonstrates poor baseline. Sinus rhythm with a rate of 81. DC interval 163. QRS 102. QTc of 371. No acute ST segment elevations or depressions X-rays interpreted by me (1pt min.). @ -Yes which demonstrate signs of congestive heart failure with pulmonary vascular congestion CT interpreted by me (1pt min.). @ -None done U/S interpreted by me (1pt. min.). @ -None done What testing was considered but not performed or refused? (CT, X-rays, U/S, labs)? Why? @ -None What meds were considered but not given or refused? Why? @ -None Did you discuss the management of the patient with other professionals (professionals i.e. , PA, STRANDING MACHINE OPERATOR, lab, RT, psych nurse, delinquency prevention social worker, copper tapper, teacher, business development officer, behavioral health case manager)? Give summary @ -Spoke with Deb from [facility] for the admission Was smoking cessation discussed for >3mins.? @ -No Was critical care preformed (if so, how long)? @ -Yes, 35 minutes for management of hypoxic respiratory failure with Airvo use Were there social determinants of health that impacted care today? How? (Homelessness, low income, unemployed, alcoholism, drug addiction, transportation, low edu. Level, literacy, decrease access to med. care, snf, rehab)? @ -Patient has low literacy level Was there de-escalation of care discussed even if they declined (Discuss DNR or withdrawal of care, Hospice)? DNR status @ -No What co-morbidities impacted this encounter? (DM, HTN, Smoking, COPD, CAD, Cancer, CVA, ARF, Chemo, Hep., AIDS, mental health diagnosis, sleep apnea, morbid obesity)? @ -Congestive heart failure, chronic respiratory insufficiency Was patient admitted / discharged? Hospital course, mention meds given and route, prescriptions, significant lab abnormalities, going to OR and other pertinent info. @ -Upon arrival patient seen and evaluated promptly in trauma bay 1. He is placed on continuous pulse ox and cardiac monitoring. Twelve-lead EKG was obtained. Patient is placed on Airvo, 55 L at 90%. Laboratory studies are conducted. Chest x-ray was performed. Chest x-ray reveals findings concerning for congestive heart failure. Patient did receive a dose of Lasix. Patient will be admitted to the hospital due to high oxygen needs. I did speak with Deb from [facility] for the admission Undiagnosed new problem with uncertain prognosis? @ -No Drug Therapy requiring intensive monitoring for toxicity (Heparin, Nitro, Insulin, Cardizem)? @ -No Were any procedures done? @ -No Diagnosis/symptom? @ -Acute hypoxic respiratory failure, chronic respiratory insufficiency, acute exacerbation of CHF Acute, or Chronic, or Acute on Chronic? @ -Acute on chronic Uncomplicated (without systemic symptoms) or Complicated (systemic symptoms)? @ -Complicated Side effects of treatment? @ -No Exacerbation, Progression, or Severe Exacerbation? @ -Yes this patient was significantly hypoxic upon arrival Poses a threat to life or bodily function? How? (Chest pain, USA, ID, pneumonia, PE, COPD, DKA, ARF, appy, cholecystitis, CVA, Diverticulitis, Homicidal, Suicidal, threat to staff... and all critical care pts) @ -Yes as patient was hypoxic - Lab Data Result diagrams: 03/10/25 05:50 03/10/25 05:50 Lab Results 02/24/25 02/24/25 02/24/25 Range/Units 20:32 20:32 20:32 WBC 7.58 (4.50-10.00) 10*3/uL RBC 4.87 (4.40-5.60) 10*6/uL Hgb 14.3 (13.0-17.0) g/dL Hct 48.2 (39.6-50.0) % MCV 99.0 H (80.0-97.0) fL MCH 29.4 (27.0-32.0) pg MCHC 29.7 L (32.0-37.0) g/dL Plt Count 243 (140-440) 10*3/uL MPV 10.0 (9.5-12.2) fL Immature Gran % (Auto) 2.4 % Neutrophils % 90.1 % Lymphocytes % 6.1 % Monocytes % 0.9 % Eosinophils % 0.0 % Basophils % 0.5 % Immature Gran # 0.18 H (0.00-0.04) 10*3/uL Neutrophils # 6.83 (1.80-7.70) 10*3/uL Lymphocytes # 0.46 L (0.90-5.00) 10*3/uL Monocytes # 0.07 L (0.20-1.00) 10*3/uL Eosinophils # 0.00 L (0.04-0.35) 10*3/uL Basophils # 0.04 (0.00-0.10) 10*3/uL PT (10.0-12.5) sec INR (<1.2) APTT (22.0-30.0) sec VBG pH (7.31-7.41) VBG pCO2 (37-51) mmHg VBG HCO3 (24-28) mmol/L Sodium 134 L (137-145) mmol/L Potassium 7.4 H* (3.5-5.1) mmol/L Chloride 94 L (98-107) mmol/L Carbon Dioxide 34 H (22-30) mmol/L Anion Gap 6 mmol/L BUN 60 H (9-20) mg/dL Creatinine 1.85 H (0.66-1.25) mg/dL Est GFR (CKD-EPI)AfAm 48 (>60 ml/min/1.73 sqM) Est GFR (CKD-EPI)NonAf 41 (>60 ml/min/1.73 sqM) Glucose 229 H (74-99) mg/dL POC Glucose (mg/dL) (70-110) mg/dL POC Glu Superintendent Track ID Plasma Lactic Acid David 1.1 (0.7-2.0) mmol/L Calcium 8.7 (8.4-10.2) mg/dL Total Bilirubin 0.5 (0.2-1.3) mg/dL AST 18 (17-59) U/L ALT 12 (4-49) U/L Alkaline Phosphatase 62 (38-126) U/L Troponin I (0.000-0.034) ng/mL NT-Pro-B Natriuret Pep 576 pg/mL Total Protein 7.2 (6.3-8.2) g/dL Albumin 3.4 L (3.5-5.0) g/dL 02/24/25 02/24/25 02/24/25 Range/Units 20:32 20:32 21:28 WBC (4.50-10.00) 10*3/uL RBC (4.40-5.60) 10*6/uL Hgb (13.0-17.0) g/dL Hct (39.6-50.0) % MCV (80.0-97.0) fL MCH (27.0-32.0) pg MCHC (32.0-37.0) g/dL Plt Count (140-440) 10*3/uL MPV (9.5-12.2) fL Immature Gran % (Auto) % Neutrophils % % Lymphocytes % % Monocytes % % Eosinophils % % Basophils % % Immature Gran # (0.00-0.04) 10*3/uL Neutrophils # (1.80-7.70) 10*3/uL Lymphocytes # (0.90-5.00) 10*3/uL Monocytes # (0.20-1.00) 10*3/uL Eosinophils # (0.04-0.35) 10*3/uL Basophils # (0.00-0.10) 10*3/uL PT 11.5 (10.0-12.5) sec INR 1.0 (<1.2) APTT 25.5 (22.0-30.0) sec VBG pH 7.33 (7.31-7.41) VBG pCO2 63 H (37-51) mmHg VBG HCO3 33 H (24-28) mmol/L Sodium (137-145) mmol/L Potassium (3.5-5.1) mmol/L Chloride (98-107) mmol/L Carbon Dioxide (22-30) mmol/L Anion Gap mmol/L BUN (9-20) mg/dL Creatinine (0.66-1.25) mg/dL Est GFR (CKD-EPI)AfAm (>60 ml/min/1.73 sqM) Est GFR (CKD-EPI)NonAf (>60 ml/min/1.73 sqM) Glucose (74-99) mg/dL POC Glucose (mg/dL) (70-110) mg/dL POC Glu Superintendent Track ID Plasma Lactic Acid David (0.7-2.0) mmol/L Calcium (8.4-10.2) mg/dL Total Bilirubin (0.2-1.3) mg/dL AST (17-59) U/L ALT (4-49) U/L Alkaline Phosphatase (38-126) U/L Troponin I <0.012 (0.000-0.034) ng/mL NT-Pro-B Natriuret Pep pg/mL Total Protein (6.3-8.2) g/dL Albumin (3.5-5.0) g/dL 02/24/25 02/24/25 Range/Units 21:34 23:03 WBC (4.50-10.00) 10*3/uL RBC (4.40-5.60) 10*6/uL Hgb (13.0-17.0) g/dL Hct (39.6-50.0) % MCV (80.0-97.0) fL MCH (27.0-32.0) pg MCHC (32.0-37.0) g/dL Plt Count (140-440) 10*3/uL MPV (9.5-12.2) fL Immature Gran % (Auto) % Neutrophils % % Lymphocytes % % Monocytes % % Eosinophils % % Basophils % % Immature Gran # (0.00-0.04) 10*3/uL Neutrophils # (1.80-7.70) 10*3/uL Lymphocytes # (0.90-5.00) 10*3/uL Monocytes # (0.20-1.00) 10*3/uL Eosinophils # (0.04-0.35) 10*3/uL Basophils # (0.00-0.10) 10*3/uL PT (10.0-12.5) sec INR (<1.2) APTT (22.0-30.0) sec VBG pH (7.31-7.41) VBG pCO2 (37-51) mmHg VBG HCO3 (24-28) mmol/L Sodium (137-145) mmol/L Potassium 7.4 H* (3.5-5.1) mmol/L Chloride (98-107) mmol/L Carbon Dioxide (22-30) mmol/L Anion Gap mmol/L BUN (9-20) mg/dL Creatinine (0.66-1.25) mg/dL Est GFR (CKD-EPI)AfAm (>60 ml/min/1.73 sqM) Est GFR (CKD-EPI)NonAf (>60 ml/min/1.73 sqM) Glucose (74-99) mg/dL POC Glucose (mg/dL) 392 H (70-110) mg/dL POC Glu Superintendent Track ID Jordan Mccullough Plasma Lactic Acid David (0.7-2.0) mmol/L Calcium (8.4-10.2) mg/dL Total Bilirubin (0.2-1.3) mg/dL AST (17-59) U/L ALT (4-49) U/L Alkaline Phosphatase (38-126) U/L Troponin I (0.000-0.034) ng/mL NT-Pro-B Natriuret Pep pg/mL Total Protein (6.3-8.2) g/dL Albumin (3.5-5.0) g/dL Disposition Clinical Impression: Acute pulmonary edema, Congestive heart failure, Hypoxemia, Hyperkalemia Disposition: ADMITTED IP TO THIS [facility] Condition: Serious Is patient prescribed a controlled substance at d/c from ED?: No Time of Disposition: 23:05 Decision to Admit Reason: Admit from EC Decision Date: 02/24/25 Decision Time: 23:05
[2025-02-24] MEDS: FUROSEMIDE 10 MG/ML 2 ML VIAL IV STA (22:56)
[2025-02-24] MEDS: SODIUM ZIRCONIUM CYCLOSILICATE 10 GM PACKET PO ONE (22:57)
[2025-02-24] MEDS: DEXTROSE 50% SYRINGE 50 ML IVP STA (22:57)
[2025-02-24] MEDS: INSULIN REGULAR 100 UNIT/ML VIAL (IV) IV ONE (23:01)
[2025-02-24] MEDS: SODIUM BICARB 8.4% 50 ML SYR (1 MEQ/ML) IV STA (23:02)
[2025-02-24 23:05] LABS: Glucose,Whole Blood 392 mg/dL (70-110)
[2025-02-24] MEDS ORDERED: NALOXONE 0.4 MG/ML 1 ML VIAL IV PRN (23:26)
[2025-02-24 23:48] LABS: Glucose,Whole Blood 317 mg/dL (70-110)
[2025-02-25 00:27] LABS: Glucose,Whole Blood 131 mg/dL (70-110)
[2025-02-25 02:01] LABS: Basophils # (A) 0.02 10*3/uL (0.00-0.10); Basophils % (A) 0.4 %; HCT 45.8 % (39.6-50.0); HGB 13.9 g/dL (13.0-17.0); Lymphocytes # (A) 0.62 10*3/uL (0.90-5.00); Lymphocytes % (A) 11.5 %; MCH 30.2 pg (27.0-32.0); MCHC 30.3 g/dL (32.0-37.0); MCV 99.3 fL (80.0-97.0); Mean Platelet Volume 10.7 fL (9.5-12.2); Monocytes # (A) 0.04 10*3/uL (0.20-1.00); Monocytes % (A) 0.7 %; Neutrophils # (A) 4.49 10*3/uL (1.80-7.70); Neutrophils % (A) 83.5 %; Platelet Count 265 10*3/uL (140-440); RBC 4.61 10*6/uL (4.40-5.60); RDW 19.5 % (11.5-14.5); WBC 5.38 10*3/uL (4.50-10.00)
[2025-02-25 02:04] LABS: ALT 12 U/L (4-49); AST 15 U/L (17-59); African American GFR (CKD) 51 (>60 ml/min/1.73 sqM); Albumin 3.3 g/dL (3.5-5.0); Alkaline Phosphatase 61 U/L (38-126); Anion Gap 7 mmol/L; Blood Urea Nitrogen 56 mg/dL (9-20); Calcium 9.1 mg/dL (8.4-10.2); Carbon Dioxide 37 mmol/L (22-30); Chloride 91 mmol/L (98-107); Glucose 139 mg/dL (74-99); Non-African American GFR(CKD) 44 (>60 ml/min/1.73 sqM); Sodium 135 mmol/L (137-145); Total Bilirubin 0.4 mg/dL (0.2-1.3)
[2025-02-25 02:32] LABS: Potassium 7.2 mmol/L (3.5-5.1)
[2025-02-25 02:40] LABS: Amorphous Sediment,Urine Rare /hpf; Appearance,Urine Cloudy (Clear); Bacteria,Urine Rare /hpf; Bilirubin,Urine Negative (Negative); Blood,Urine Small (Negative); Budding Yeast,Urine Few /hpf; Color,Urine Colorless; Glucose,Urine (UA) Negative (Negative); Hyaline Casts,Urine 5 /lpf (0-2); Hyphae Yeast, Urine Rare /hpf; Ketones,Urine Negative (Negative); Leukocyte Esterase,Urine Small (Negative); Mucus,Urine Rare /hpf; Nitrite,Urine Negative (Negative); Protein,Urine Negative (Negative); RBC,Urine 9 /hpf (0-5); Specific Gravity,Urine 1.008 (1.001-1.035); Urobilinogen,Urine <2.0 mg/dL (<2.0); WBC,Urine 12 /hpf (0-5)
[2025-02-25] MEDS: CALCIUM GLUCONATE IN NACL 1 GM in SALINE 1 100ML.BAG IVPB ONE (03:34)
[2025-02-25] MEDS: SODIUM POLYSTYRENE SULFONATE 30 GM/120 ML BOTTLE RECTAL ONE (03:34)
[2025-02-25] MEDS: DEXTROSE 50% SYRINGE 50 ML IVP ONE (03:34)
[2025-02-25] MEDS: INSULIN REGULAR 100 UNIT/ML VIAL (IV) IV ONE (03:34)
[2025-02-25] MEDS: SODIUM BICARB 8.4% 50 ML SYR (1 MEQ/ML) IV ONE (03:34)
[2025-02-25] MEDS: FUROSEMIDE 10 MG/ML 2 ML VIAL IV STA (03:58)
--- NOTE | 2025-02-25 06:39 | P.CNPUL ---
History of Present Illness Consult date: 02/25/25 Requesting physician: Shila Boone Reason for consult: other (ICU management) Chief complaint: Difficulty in breathing History of present illness: Patient is a 49-year-old male with past medical history significant for Down syndrome, congestive heart failure, obstructive sleep apnea unable to tolerate CPAP, hypertension, hyperlipidemia, gastroesophageal reflux disease and previous episodes of aspiration. Patient was at his ECF, [facility], found in some respiratory distress. SpO2 was reading low in the 70s. Placed back on supplemental oxygen. I am told he chronically wears 3 L/min nasal cannula at bedtime. Did receive a dose of 40 mg IV Lasix at outside facility. Sent in the emergency department late last night on a nonrebreather. Did not tolerate noninvasive CPAP/BiPAP in the ER. He is currently on Airvo with settings 50 L and 90%. SpO2 recorded around 97%. Workup including a chest x-ray showing cardiomegaly, pulmonary vascular congestion, and probable bilateral pleural effusions. He did receive a additional dose of IV Lasix 20 mg. He was also found to be severely hyperkalemic, with a potassium of 7.4 treated with one half amp D50 W, 10 units regular insulin, 1 amp sodium bicarbonate, concentrated albuterol, and 10 g of Lokelma. VBG: pCO2 of 63, pH of 7.33. Remaining labs including a CBC: WBC count 7.5, hemoglobin 14.3, platelets 243. CMP: Sodium 134, potassium 7.4, chloride 94, serum bicarb 34, BUN 60, creatinine 1.85, glucose 229. LFTs unremarkable. Troponin less than 0.012. NT proBNP only 576. EKG, non-bradycardic, poor quality and will have to be repeated. Patient currently being evaluated in the trauma bay 1. He is awake and alert, unable to provide any further information. Apprehensive of care. Denies any pain. No recorded fevers. No coughing. Tachypneic. On Airvo with above-mentioned settings. He does have a chronic indwelling urinary catheter, and there is ample urine in the bag. Current vital signs: Temperature 98.1 F, heart rate 78 bpm, blood pressure 118/54 mmHg, SpO2 recorded at 97% on Airvo. Review of Systems ROS unobtainable: due to mental status Past Medical History Past Medical History: Asthma, Heart Failure, GERD/Reflux, Hyperlipidemia, Memory Impairment Additional Past Medical History / Comment(s): Down syndrome/IQ of about 74, chronic feet issue d/t gout, SHARRI but pt unable to tolerate CPAP, History of Any Multi-Drug Resistant Organisms: None Reported Past Surgical History: Ear Surgery Additional Past Surgical History / Comment(s): Tubes in ears, eye sx-family believes due to weak muscles, cyst removed from back Past Anesthesia/Blood Transfusion Reactions: No Reported Reaction Past Psychological History: No Psychological Hx Reported Smoking Status: Second hand smoke exposure Past Alcohol Use History: None Reported Past Drug Use History: None Reported - Past Family History Mother Family Medical History: Congestive Heart Failure (CHF), GERD/Reflux Additional Family Medical History / Comment(s): Vivienne Medications and Allergies Home Medications Medication Instructions Recorded Confirmed Type Atorvastatin [Lipitor] 40 mg PO DAILY 01/11/16 12/15/21 History Famotidine [Pepcid] 20 mg PO DAILY 01/11/16 12/15/21 History Acetaminophen Tab [Tylenol] 650 mg PO Q6HR PRN tab 11/13/21 12/15/21 Rx Budesonide-Formot 160-4.5 Mcg 2 puff INHALATION RT-BID 30 Days 11/13/21 12/15/21 Rx [Symbicort 160-4.5 Mcg Inhaler] #1 gm Ipratropium-Albuterol Nebulize 3 ml INHALATION RT-QID 30 Days #90 11/13/21 12/15/21 Rx [Duoneb 0.5 mg-3 mg/3 ml Soln] ml Sodium Chloride 0.65% Nasal [Deep 2 spr NASAL QID PRN 12/15/21 12/15/21 History Sea (Saline)] Spironolactone [Aldactone] 25 mg PO MOWEFR 12/15/21 12/15/21 History Aspirin 81 mg PO DAILY #30 01/03/22 Rx Furosemide [Lasix] 40 mg PO BID@0900,1600 #60 tab 01/03/22 Rx lisinopriL [Zestril] 2.5 mg PO DAILY #30 tab 01/03/22 Rx Allergies Allergy/AdvReac Type Severity Reaction Status Date / Time No Known Allergies Allergy Verified 02/24/25 20:10 Physical Exam Vitals: Vital Signs Temp Pulse Resp BP Pulse Ox FiO2 02/25/25 01:00 78 21 124/62 93 L 90 02/25/25 00:50 90 02/25/25 00:25 98.1 F 78 22 118/54 97 90 02/24/25 23:45 75 14 100/65 95 02/24/25 23:36 90 02/24/25 23:00 86 14 91/51 95 02/24/25 22:00 84 13 122/90 94 L 02/24/25 21:50 85 02/24/25 21:38 80 02/24/25 21:23 90 02/24/25 21:10 78 22 107/51 100 02/24/25 20:41 90 02/24/25 20:30 81 15 108/94 97 02/24/25 20:03 98.4 F 80 16 124/80 94 L Intake and Output 02/24/25 02/24/25 02/25/25 14:59 22:59 06:59 Output Total 400 Balance -400 Output: Urine 400 Other: Weight 116.483 kg GENERAL EXAM: Alert, 49-year-old obese male, clinical features of Down syndrome, tearful and apprehensive of care. HEAD: Brachycephaly, short nasal bridge, low-set ears, and atraumatic EYES: Normal reaction of pupils, equal size. NOSE: Clear with pink turbinates. THROAT: No erythema or exudates. NECK: No masses, no JVD. CHEST: No chest wall deformity. LUNGS: Equal air entry with no crackles, wheeze, rhonchi or dullness. On Airvo, with current settings 50 L and 90%. Tachypneic. No respiratory distress. No coughing. CVS: S1 and S2 normal with no audible murmur, regular rhythm. No extra heart sounds ABDOMEN: No hepatosplenomegaly, active bowel sounds, no guarding or rigidity. SPINE: No scoliosis or deformity SKIN: No rashes. Diffuse seborrheic keratosis CENTRAL NERVOUS SYSTEM: No focal deficits, tone is normal in all 4 extremities. EXTREMITIES: There is no peripheral edema, clubbing, or cyanosis. Peripheral pulses are intact. Results - Laboratory Findings CBC and BMP: 02/25/25 01:15 02/24/25 21:34 PT/INR, D-dimer PT 11.5 sec (10.0-12.5) 02/24/25 21:28 INR 1.0 (<1.2) 02/24/25 21:28 Abnormal lab findings: Abnormal Labs 02/24/25 02/24/25 02/24/25 20:32 20:32 20:32 MCV 99.0 H MCHC 29.7 L Immature Gran # 0.18 H Lymphocytes # 0.46 L Monocytes # 0.07 L Eosinophils # 0.00 L VBG pCO2 63 H VBG HCO3 33 H Sodium 134 L Potassium 7.4 H* Chloride 94 L Carbon Dioxide 34 H BUN 60 H Creatinine 1.85 H Glucose 229 H POC Glucose (mg/dL) Albumin 3.4 L 02/24/25 02/24/25 02/24/25 21:34 23:03 23:46 MCV MCHC Immature Gran # Lymphocytes # Monocytes # Eosinophils # VBG pCO2 VBG HCO3 Sodium Potassium 7.4 H* Chloride Carbon Dioxide BUN Creatinine Glucose POC Glucose (mg/dL) 392 H 317 H Albumin 02/25/25 00:25 MCV MCHC Immature Gran # Lymphocytes # Monocytes # Eosinophils # VBG pCO2 VBG HCO3 Sodium Potassium Chloride Carbon Dioxide BUN Creatinine Glucose POC Glucose (mg/dL) 131 H Albumin - Diagnostic Findings Chest x-ray: image reviewed Assessment and Plan Assessment: Acute on chronic hypoxemic and hypercapnic respiratory failure, currently on Airvo, suspect secondary to an exacerbation of diastolic congestive heart failure and underlying obesity hypoventilation syndrome, chest x-ray shows cardiomegaly, pulmonary vascular congestion, and probable bilateral pleural effusions. NT proBNP only 576 History of heart failure with preserved ejection fraction Severe hyperkalemia, treated with a potassium cocktail including one half amp D50 W, 10 units regular insulin, 1 amp sodium bicarbonate, concentrated albuterol, and 10 g of Lokelma. Acute kidney injury, creatinine 1.85 History obstructive sleep apnea, unable to tolerate CPAP Morbid obesity, with a BMI of 44.1 kg/m History of hyperlipidemia Hypertension History of trisomy 21 Plan: Patient's medications, labs, imaging were reviewed Continue on Airvo, as he tolerates this better than BiPAP, currently on 50 L, 90% Continue with Lasix 40 mg twice daily Recent available echocardiogram from 2021, repeat study Check Cepheid 4 Plex Repeat labs including potassium pending Monitor renal function Hold SHANNON inhibitor and Aldactone Replace indwelling urinary catheter, and obtain urinalysis We will continue to follow, additional recommendations forthcoming I have personally seen and examined the patient, performed the documentation and the assessment and plan as written. Number of minutes spent on the visit:20 Time with Patient: Greater than 30
--- NOTE | 2025-02-25 07:32 | XR ---
EXAMINATION TYPE: XR chest 1V portable DATE OF EXAM: 02/25/2025 7:08 AM COMPARISON: 02/24/2025 CLINICAL INDICATION: Male, 49 years old with history of Difficulty breathing, TECHNIQUE: XR chest 1V portable views of the chest are obtained. FINDINGS: Demonstrated are scattered senescent parenchymal change. Scattered perihilar and basilar infiltrates noted with continued cardiomegaly and pulmonary venous co ngestion. Findings could reflect CHF. Correlate BMP. Pneumonia not excluded. The heart is stable. Hilar and mediastinal structures are within normal limits. Degenerative changes are seen of the dorsal spine. IMPRESSION: 1. Scattered perihilar and basilar infiltrates noted with continued cardiomegaly and pulmonary venou s congestion. Findings could reflect CHF. Correlate BMP. Pneumonia not excluded. [facility], , 02/25/2025 7:30 AM
[2025-02-25] MEDS: IPRATROPIUM-ALBUTEROL 3 ML NEB INHALATION SCH ×2 (08:14→08:16)
[2025-02-25] MEDS: SYMBICORT 160-4.5 MCG INHALER INHALATION SCH (08:16)
[2025-02-25] MEDS: FUROSEMIDE 10 MG/ML 4 ML VIAL IV SCH (09:22)
[2025-02-25] MEDS: SODIUM ZIRCONIUM CYCLOSILICATE 10 GM PACKET PO ONE (09:22)
--- NOTE | 2025-02-25 10:28 | P.CONS ---
History of Present Illness - Reason for Consult Consult date: 02/25/25 Wound care - History of Present Illness This is a 49-year-old patient who is a [facility] [place] being seen in ICU for stage II pressure ulcers to the right and left buttocks at this time patient has a bordered foam dressing over top. Patient is a poor historian. Stage II pressure ulcer right and left buttocks. Past medical history significant for asthma heart failure GERD hyperlipidemia Down syndrome. Review of systems: Unable to obtain due to patient's mental status Physical exam: General Appearance: Alert, cooperative, no distress, appears stated age. Skin: See HPI all other Skin color, texture, tugor normal, no rashes or lesions. Neurologic: Alert oriented x1 Assessment: 1. Stage II pressure ulcer right buttocks 2. Stage II pressure ulcer left buttocks Plan: 1. Apply honey gel and bordered foam turn patient every 2 hours. Utilize a air-filled cushion when sitting. Thank for the consultation any questions please contact the wound care center DNP note has been reviewed and discussed with Dr. Amaya and the impression and plan of care has been directed as dictated. Past Medical History Past Medical History: Asthma, Heart Failure, GERD/Reflux, Hyperlipidemia, Memory Impairment Additional Past Medical History / Comment(s): Down syndrome/IQ of about 74, chronic feet issue d/t gout, SHARRI but pt unable to tolerate CPAP, History of Any Multi-Drug Resistant Organisms: None Reported Past Surgical History: Ear Surgery Additional Past Surgical History / Comment(s): Tubes in ears, eye sx-family believes due to weak muscles, cyst removed from back Past Anesthesia/Blood Transfusion Reactions: No Reported Reaction Past Psychological History: No Psychological Hx Reported Smoking Status: Second hand smoke exposure Past Alcohol Use History: None Reported Past Drug Use History: None Reported - Past Family History Mother Family Medical History: Congestive Heart Failure (CHF), GERD/Reflux Additional Family Medical History / Comment(s): Vivienne Medications and Allergies Home Medications Medication Instructions Recorded Confirmed Type Atorvastatin [Lipitor] 40 mg PO DAILY 01/11/16 02/25/25 History Spironolactone [Aldactone] 25 mg PO DAILY 12/15/21 02/25/25 History Aspirin 81 mg PO DAILY #30 01/03/22 02/25/25 Rx lisinopriL [Zestril] 2.5 mg PO DAILY #30 tab 03/09/22 05/01/25 Rx Amino Acids/Protein Hydrolys 1 applic TOPICAL BID 02/25/25 02/25/25 History [Pro-Stat Awc Liquid] Ammonium Lactate Cream [Lac-Hydrin 1 applic TOPICAL BID 02/25/25 02/25/25 History 12% Cream] Ascorbic Acid [Vitamin C] 500 mg PO DAILY 02/25/25 02/25/25 History Esomeprazole Magnesium [NexIUM] 20 mg PO BID 02/25/25 02/25/25 History Fluoride (Sodium) [Prevident] 1 applic TOPICAL HS 02/25/25 02/25/25 History Furosemide [Lasix] 40 mg PO DAILY 02/25/25 02/25/25 History Miconzole Powder 2% 1 applic TOPICAL BID 02/25/25 02/25/25 History Tamsulosin HCl [Flomax] 0.4 mg PO DAILY 02/25/25 02/25/25 History Thiamine [Vitamin B-1] 100 mg PO DAILY 02/25/25 02/25/25 History Allergies Allergy/AdvReac Type Severity Reaction Status Date / Time No Known Allergies Allergy Verified 02/25/25 09:00 Physical Exam Vitals: Vital Signs Temp Pulse Resp BP Pulse Ox FiO2 02/25/25 08:33 88 02/25/25 08:16 80 91 L 92 02/25/25 08:00 98.6 F 80 21 103/48 93 L 90 02/25/25 07:00 80 12 103/55 93 L 02/25/25 06:00 80 20 115/37 91 L 02/25/25 05:00 85 12 118/52 90 L 02/25/25 04:00 98.5 F 85 24 87/57 92 L 90 02/25/25 03:10 92 02/25/25 03:00 84 18 94/72 90 L 02/25/25 02:00 85 15 124/62 93 L 02/25/25 01:00 78 21 124/62 93 L 90 02/25/25 00:50 90 02/25/25 00:25 98.1 F 78 22 118/54 97 90 02/24/25 23:45 75 14 100/65 95 02/24/25 23:36 90 02/24/25 23:00 86 14 91/51 95 02/24/25 22:00 84 13 122/90 94 L 02/24/25 21:50 85 02/24/25 21:38 80 02/24/25 21:23 90 02/24/25 21:10 78 22 107/51 100 02/24/25 20:41 90 02/24/25 20:30 81 15 108/94 97 02/24/25 20:03 98.4 F 80 16 124/80 94 L Intake and Output 02/24/25 02/25/25 02/25/25 22:59 06:59 14:59 Intake Total 100 Output Total 1425 310 Balance -1325 -310 Intake: IV 100 Calcium Gluconate in NaCl 100 1 gm In Saline 1 100ml. bag @ 400 mls/hr IVPB ONCE ONE Rx#:[id number] Output: Urine 1425 310 Other: Weight 116.483 kg 117.4 kg Results CBC & Chem 7: 02/25/25 01:15 02/25/25 06:42 Labs: Abnormal Lab Results - Last 24 Hours (Table) 02/24/25 02/24/25 02/24/25 Range/Units 20:32 20:32 20:32 MCV 99.0 H (80.0-97.0) fL MCHC 29.7 L (32.0-37.0) g/dL Immature Gran # 0.18 H (0.00-0.04) 10*3/uL Lymphocytes # 0.46 L (0.90-5.00) 10*3/uL Monocytes # 0.07 L (0.20-1.00) 10*3/uL Eosinophils # 0.00 L (0.04-0.35) 10*3/uL VBG pCO2 63 H (37-51) mmHg VBG HCO3 33 H (24-28) mmol/L Sodium 134 L (137-145) mmol/L Potassium 7.4 H* (3.5-5.1) mmol/L Chloride 94 L (98-107) mmol/L Carbon Dioxide 34 H (22-30) mmol/L BUN 60 H (9-20) mg/dL Creatinine 1.85 H (0.66-1.25) mg/dL Glucose 229 H (74-99) mg/dL POC Glucose (mg/dL) (70-110) mg/dL AST (17-59) U/L Albumin 3.4 L (3.5-5.0) g/dL Urine Blood (Negative) Ur Leukocyte Esterase (Negative) Urine RBC (0-5) /hpf Urine WBC (0-5) /hpf Urine WBC Clumps (None) /hpf Amorphous Sediment (None) /hpf Urine Bacteria (None) /hpf Hyaline Casts (0-2) /lpf Urine Mucus (None) /hpf Urine Yeast (Budding) (None) /hpf 02/24/25 02/24/25 02/24/25 Range/Units 21:34 23:03 23:46 MCV (80.0-97.0) fL MCHC (32.0-37.0) g/dL Immature Gran # (0.00-0.04) 10*3/uL Lymphocytes # (0.90-5.00) 10*3/uL Monocytes # (0.20-1.00) 10*3/uL Eosinophils # (0.04-0.35) 10*3/uL VBG pCO2 (37-51) mmHg VBG HCO3 (24-28) mmol/L Sodium (137-145) mmol/L Potassium 7.4 H* (3.5-5.1) mmol/L Chloride (98-107) mmol/L Carbon Dioxide (22-30) mmol/L BUN (9-20) mg/dL Creatinine (0.66-1.25) mg/dL Glucose (74-99) mg/dL POC Glucose (mg/dL) 392 H 317 H (70-110) mg/dL AST (17-59) U/L Albumin (3.5-5.0) g/dL Urine Blood (Negative) Ur Leukocyte Esterase (Negative) Urine RBC (0-5) /hpf Urine WBC (0-5) /hpf Urine WBC Clumps (None) /hpf Amorphous Sediment (None) /hpf Urine Bacteria (None) /hpf Hyaline Casts (0-2) /lpf Urine Mucus (None) /hpf Urine Yeast (Budding) (None) /hpf 02/25/25 02/25/25 02/25/25 Range/Units 00:25 01:15 01:15 MCV 99.3 H (80.0-97.0) fL MCHC 30.3 L (32.0-37.0) g/dL Immature Gran # 0.21 H (0.00-0.04) 10*3/uL Lymphocytes # 0.62 L (0.90-5.00) 10*3/uL Monocytes # 0.04 L (0.20-1.00) 10*3/uL Eosinophils # 0.00 L (0.04-0.35) 10*3/uL VBG pCO2 (37-51) mmHg VBG HCO3 (24-28) mmol/L Sodium 135 L (137-145) mmol/L Potassium 7.2 H* (3.5-5.1) mmol/L Chloride 91 L (98-107) mmol/L Carbon Dioxide 37 H (22-30) mmol/L BUN 56 H (9-20) mg/dL Creatinine 1.76 H (0.66-1.25) mg/dL Glucose 139 H (74-99) mg/dL POC Glucose (mg/dL) 131 H (70-110) mg/dL AST 15 L (17-59) U/L Albumin 3.3 L (3.5-5.0) g/dL Urine Blood (Negative) Ur Leukocyte Esterase (Negative) Urine RBC (0-5) /hpf Urine WBC (0-5) /hpf Urine WBC Clumps (None) /hpf Amorphous Sediment (None) /hpf Urine Bacteria (None) /hpf Hyaline Casts (0-2) /lpf Urine Mucus (None) /hpf Urine Yeast (Budding) (None) /hpf 02/25/25 02/25/25 Range/Units 02:13 06:42 MCV (80.0-97.0) fL MCHC (32.0-37.0) g/dL Immature Gran # (0.00-0.04) 10*3/uL Lymphocytes # (0.90-5.00) 10*3/uL Monocytes # (0.20-1.00) 10*3/uL Eosinophils # (0.04-0.35) 10*3/uL VBG pCO2 (37-51) mmHg VBG HCO3 (24-28) mmol/L Sodium (137-145) mmol/L Potassium 6.1 H* (3.5-5.1) mmol/L Chloride (98-107) mmol/L Carbon Dioxide (22-30) mmol/L BUN (9-20) mg/dL Creatinine (0.66-1.25) mg/dL Glucose (74-99) mg/dL POC Glucose (mg/dL) (70-110) mg/dL AST (17-59) U/L Albumin (3.5-5.0) g/dL Urine Blood Small H (Negative) Ur Leukocyte Esterase Small H (Negative) Urine RBC 9 H (0-5) /hpf Urine WBC 12 H (0-5) /hpf Urine WBC Clumps Rare H (None) /hpf Amorphous Sediment Rare H (None) /hpf Urine Bacteria Rare H (None) /hpf Hyaline Casts 5 H (0-2) /lpf Urine Mucus Rare H (None) /hpf Urine Yeast (Budding) Few H (None) /hpf Assessment and Plan (1) Stage II pressure ulcer of left buttock Current Visit: Yes Status: Acute Code(s): L89.322 - PRESSURE ULCER OF LEFT BUTTOCK, STAGE 2 SNOMED Code(s): 02484354880697 (2) Stage II pressure ulcer of right buttock Current Visit: Yes Status: Acute Code(s): L89.312 - PRESSURE ULCER OF RIGHT BUTTOCK, STAGE 2 SNOMED Code(s): 13634696488113
--- NOTE | 2025-02-25 11:33 | P.CRDCN ---
History of Present Illness Consult date: 02/25/25 Requesting physician: Shila Boone Reason for Consult (text): acute chf exacerbation History of present illness: History of present illness: Patient is a 49 year old male with past medical history of asthma, hyperlipidemia, GERD, Down syndrome, hyperlipidemia, congestive heart failure, SHARRI residing at [facility]. The patient was found to be in some respiratory distress at her ECF. Patient uses oxygen at home at 3 L/min at bedtime. The patient was found to have his oxygen off and was saturating in the 70s. Patient was sent to the emergency department last night on a nonrebreather and did not tolerate CPAP/BiPAP in the ER. Patient seen today in cardiac consultation for possible CHF. Patient is unable to provide any history. ED documentation reviewed. Vitals T90 8.6 F, MT 88 bpm, RR 21, BP 103/48, SPO2 91% on 60 L and 92% FiO2 via Airvo EKG independently interpreted as sinus rhythm, rate 81 bpm, QTc 371 ms Chest x-ray shows scattered perihilar and basilar infiltrates noted with continued cardiomegaly and pulmonary venous congestion Labs show WBC 5.38, hemoglobin 13.9, platelet count 265, INR 1.0, sodium 135, potassium 6.1, chloride 91, bicarb 37, BUN 56, creatinine 1.76, albumin 3.3 Troponin I <0.012, NT proBNP 576 UA shows small blood, small leukocyte esterase, 9 RBC, 20 WBC, 5 hyaline cast and few budding yeast Echocardiogram obtained in Nov 2021 showed left ventricular systolic function is low-normal with EF 50 to 55%, right ventricle normal in size. Review of systems: Pertinent positives and negatives as discussed in HPI, a complete review of systems was performed and all other systems are negative. Physical examination: Vital signs reviewed GENERAL: This is a 49-year-old obese male, not in acute distress HEENT: Head is atraumatic. NECK: Supple, no JVD LUNGS: CTA bilaterally, no wheezes, no crackles HEART: S1-S2 audible ABDOMEN: Soft, nontender EXTREMITIES: Trace edema Detailed neuro exam was not performed. Assessment: Acute on chronic hypoxic and hypercapnic respiratory failure Acute onset diastolic congestive heart failure exacerbation Hyerkalemia CASSIUS Hypertension Hyperlipidemia Down syndrome History of SHARRI Plan: Obtain 2D echo and doppler study to assess cardiac structure and function Continue Furosemide 40 mg IV Q12HR Hold nephrotoxic medications We will continue to monitor Further recommendations pending clinical course Dictation was produced using [employer] dictation software. please excuse any grammatical, word or spelling errors. Curly Bourne MD PGY-1 IM I have seen and evaluated the patient today. Discussed with the resident and a gree with the residents finding and plan as documented in the resident's note. Past Medical History Past Medical History: Asthma, Heart Failure, GERD/Reflux, Hyperlipidemia, Memory Impairment Additional Past Medical History / Comment(s): Down syndrome/IQ of about 74, chronic feet issue d/t gout, SHARRI but pt unable to tolerate CPAP, History of Any Multi-Drug Resistant Organisms: None Reported Past Surgical History: Ear Surgery Additional Past Surgical History / Comment(s): Tubes in ears, eye sx-family believes due to weak muscles, cyst removed from back Past Anesthesia/Blood Transfusion Reactions: No Reported Reaction Past Psychological History: No Psychological Hx Reported Smoking Status: Second hand smoke exposure Past Alcohol Use History: None Reported Past Drug Use History: None Reported - Past Family History Mother Family Medical History: Congestive Heart Failure (CHF), GERD/Reflux Additional Family Medical History / Comment(s): Vivienne Medications and Allergies Home Medications Medication Instructions Recorded Confirmed Type Atorvastatin [Lipitor] 40 mg PO DAILY 01/11/16 02/25/25 History Spironolactone [Aldactone] 25 mg PO DAILY 12/15/21 02/25/25 History Aspirin 81 mg PO DAILY #30 01/03/22 02/25/25 Rx lisinopriL [Zestril] 2.5 mg PO DAILY #30 tab 01/03/22 02/25/25 Rx Amino Acids/Protein Hydrolys 1 applic TOPICAL BID 02/25/25 02/25/25 History [Pro-Stat Awc Liquid] Ammonium Lactate Cream [Lac-Hydrin 1 applic TOPICAL BID 02/25/25 02/25/25 History 12% Cream] Ascorbic Acid [Vitamin C] 500 mg PO DAILY 02/25/25 02/25/25 History Esomeprazole Magnesium [NexIUM] 20 mg PO BID 02/25/25 02/25/25 History Fluoride (Sodium) [Prevident] 1 applic TOPICAL HS 02/25/25 02/25/25 History Furosemide [Lasix] 40 mg PO DAILY 02/25/25 02/25/25 History Miconzole Powder 2% 1 applic TOPICAL BID 02/25/25 02/25/25 History Tamsulosin HCl [Flomax] 0.4 mg PO DAILY 02/25/25 02/25/25 History Thiamine [Vitamin B-1] 100 mg PO DAILY 02/25/25 02/25/25 History Allergies Allergy/AdvReac Type Severity Reaction Status Date / Time No Known Allergies Allergy Verified 02/25/25 09:00 Physical Exam Vitals: Vital Signs Temp Pulse Resp BP Pulse Ox FiO2 02/25/25 08:33 88 02/25/25 08:16 80 91 L 92 02/25/25 08:00 98.6 F 80 21 103/48 93 L 90 02/25/25 07:00 80 12 103/55 93 L 02/25/25 06:00 80 20 115/37 91 L 02/25/25 05:00 85 12 118/52 90 L 02/25/25 04:00 98.5 F 85 24 87/57 92 L 90 02/25/25 03:10 92 02/25/25 03:00 84 18 94/72 90 L 02/25/25 02:00 85 15 124/62 93 L 02/25/25 01:00 78 21 124/62 93 L 90 02/25/25 00:50 90 02/25/25 00:25 98.1 F 78 22 118/54 97 90 02/24/25 23:45 75 14 100/65 95 02/24/25 23:36 90 02/24/25 23:00 86 14 91/51 95 02/24/25 22:00 84 13 122/90 94 L 02/24/25 21:50 85 02/24/25 21:38 80 02/24/25 21:23 90 02/24/25 21:10 78 22 107/51 100 02/24/25 20:41 90 02/24/25 20:30 81 15 108/94 97 02/24/25 20:03 98.4 F 80 16 124/80 94 L Intake and Output 02/24/25 02/25/25 02/25/25 22:59 06:59 14:59 Intake Total 100 Output Total 1425 310 Balance -1325 -310 Intake: IV 100 Calcium Gluconate in NaCl 100 1 gm In Saline 1 100ml. bag @ 400 mls/hr IVPB ONCE ONE Rx#:[id number] Output: Urine 1425 310 Other: Weight 116.483 kg 117.4 kg Results 02/25/25 01:15 02/25/25 06:42 Cardiac Enzymes 02/24/25 02/24/25 02/25/25 Range/Units 20:32 20:32 01:15 AST 18 15 L (17-59) U/L Troponin I <0.012 (0.000-0.034) ng/mL Coagulation 02/24/25 Range/Units 21:28 PT 11.5 (10.0-12.5) sec APTT 25.5 (22.0-30.0) sec CBC 02/24/25 02/25/25 Range/Units 20:32 01:15 WBC 7.58 5.38 (4.50-10.00) 10*3/uL RBC 4.87 4.61 (4.40-5.60) 10*6/uL Hgb 14.3 13.9 (13.0-17.0) g/dL Hct 48.2 45.8 (39.6-50.0) % Plt Count 243 265 (140-440) 10*3/uL Comprehensive Metabolic Panel 02/24/25 02/24/25 02/25/25 Range/Units 20:32 21:34 01:15 Sodium 134 L 135 L (137-145) mmol/L Potassium 7.4 H* 7.4 H* 7.2 H* (3.5-5.1) mmol/L Chloride 94 L 91 L (98-107) mmol/L Carbon Dioxide 34 H 37 H (22-30) mmol/L BUN 60 H 56 H (9-20) mg/dL Creatinine 1.85 H 1.76 H (0.66-1.25) mg/dL Glucose 229 H 139 H (74-99) mg/dL Calcium 8.7 9.1 (8.4-10.2) mg/dL AST 18 15 L (17-59) U/L ALT 12 12 (4-49) U/L Alkaline Phosphatase 62 61 (38-126) U/L Total Protein 7.2 7.0 (6.3-8.2) g/dL Albumin 3.4 L 3.3 L (3.5-5.0) g/dL 02/25/25 Range/Units 06:42 Sodium (137-145) mmol/L Potassium 6.1 H* (3.5-5.1) mmol/L Chloride (98-107) mmol/L Carbon Dioxide (22-30) mmol/L BUN (9-20) mg/dL Creatinine (0.66-1.25) mg/dL Glucose (74-99) mg/dL Calcium (8.4-10.2) mg/dL AST (17-59) U/L ALT (4-49) U/L Alkaline Phosphatase (38-126) U/L Total Protein (6.3-8.2) g/dL Albumin (3.5-5.0) g/dL Current Medications Generic Name Dose Route Start Last Admin Trade Name Freq PRN Reason Stop Dose Admin Albuterol/Ipratropium 3 ml 02/25/25 08:00 02/25/25 08:16 Ipratropium-Albuterol 3 Ml Neb INHALATION 3 ml RT-QID BLAKE Administration Furosemide 40 mg 02/25/25 09:00 Furosemide 10 Mg/Ml 4 Ml Vial IV Q12HR BLAKE Naloxone HCl 0.2 mg 02/24/25 23:26 Naloxone 0.4 Mg/Ml 1 Ml Vial IV Q2M PRN Opioid Reversal Intake and Output 02/24/25 02/25/25 02/25/25 22:59 06:59 14:59 Intake Total 100 Output Total 1425 310 Balance -1325 -310 Intake: IV 100 Calcium Gluconate in NaCl 100 1 gm In Saline 1 100ml. bag @ 400 mls/hr IVPB ONCE ONE Rx#:[id number] Output: Urine 1425 310 Other: Weight 116.483 kg 117.4 kg 02/25/25 01:15 02/25/25 06:42
--- NOTE | 2025-02-25 11:43 | P.NPCON ---
History of Present Illness - Reason for Consult acute renal failure - History of Present Illness Patient is a 59-year-old male with history of Down syndrome, CHF, hypertension who was transferred from [facility] due to shortness of breath. O2 sats were in the 70s. Chest x-ray showed pulmonary venous congestion and cardiomegaly and patient is currently being diuresed. He is maintained on IV Lasix and respiratory status has improved. Currently maintained on high flow oxygen with O2 sats at 90%. Potassium was elevated at 7.2 and is down to 6.1 this morning. Patient was maintained on SHANNON inhibitors and Aldactone prior to admission, currently on hold. Serum creatinine was 1.85 on admission and decreased to 1.7 today. Previous creatinine 0.5 in 2021 Patient has been voiding. Past Medical History Past Medical History: Asthma, Heart Failure, GERD/Reflux, Hyperlipidemia, Memory Impairment Additional Past Medical History / Comment(s): Down syndrome/IQ of about 74, chronic feet issue d/t gout, SHARRI but pt unable to tolerate CPAP, History of Any Multi-Drug Resistant Organisms: None Reported Past Surgical History: Ear Surgery Additional Past Surgical History / Comment(s): Tubes in ears, eye sx-family believes due to weak muscles, cyst removed from back Past Anesthesia/Blood Transfusion Reactions: No Reported Reaction Past Psychological History: No Psychological Hx Reported Smoking Status: Second hand smoke exposure Past Alcohol Use History: None Reported Past Drug Use History: None Reported - Past Family History Mother Family Medical History: Congestive Heart Failure (CHF), GERD/Reflux Additional Family Medical History / Comment(s): Vivienne Medications and Allergies Home Medications Medication Instructions Recorded Confirmed Type Atorvastatin [Lipitor] 40 mg PO DAILY 01/11/16 02/25/25 History Spironolactone [Aldactone] 25 mg PO DAILY 12/15/21 02/25/25 History Aspirin 81 mg PO DAILY #30 01/03/22 02/25/25 Rx lisinopriL [Zestril] 2.5 mg PO DAILY #30 tab 01/03/22 02/25/25 Rx Amino Acids/Protein Hydrolys 1 applic TOPICAL BID 02/25/25 02/25/25 History [Pro-Stat Awc Liquid] Ammonium Lactate Cream [Lac-Hydrin 1 applic TOPICAL BID 02/25/25 02/25/25 History 12% Cream] Ascorbic Acid [Vitamin C] 500 mg PO DAILY 02/25/25 02/25/25 History Esomeprazole Magnesium [NexIUM] 20 mg PO BID 02/25/25 02/25/25 History Fluoride (Sodium) [Prevident] 1 applic TOPICAL HS 02/25/25 02/25/25 History Furosemide [Lasix] 40 mg PO DAILY 02/25/25 02/25/25 History Miconzole Powder 2% 1 applic TOPICAL BID 02/25/25 02/25/25 History Tamsulosin HCl [Flomax] 0.4 mg PO DAILY 02/25/25 02/25/25 History Thiamine [Vitamin B-1] 100 mg PO DAILY 02/25/25 02/25/25 History Allergies Allergy/AdvReac Type Severity Reaction Status Date / Time No Known Allergies Allergy Verified 02/25/25 09:00 Physical Exam Vitals: Vital Signs Temp Pulse Resp BP Pulse Ox FiO2 02/25/25 11:22 77 90 L 92 02/25/25 11:00 76 18 104/72 88 L 02/25/25 10:00 78 16 122/80 90 L 02/25/25 09:00 83 12 101/75 89 L 02/25/25 08:33 88 02/25/25 08:16 80 91 L 92 02/25/25 08:00 98.6 F 80 21 103/48 93 L 90 02/25/25 07:00 80 12 103/55 93 L 02/25/25 06:00 80 20 115/37 91 L 02/25/25 05:00 85 12 118/52 90 L 02/25/25 04:00 98.5 F 85 24 87/57 92 L 90 02/25/25 03:10 92 02/25/25 03:00 84 18 94/72 90 L 02/25/25 02:00 85 15 124/62 93 L 02/25/25 01:00 78 21 124/62 93 L 90 02/25/25 00:50 90 02/25/25 00:25 98.1 F 78 22 118/54 97 90 02/24/25 23:45 75 14 100/65 95 02/24/25 23:36 90 02/24/25 23:00 86 14 91/51 95 02/24/25 22:00 84 13 122/90 94 L 02/24/25 21:50 85 02/24/25 21:38 80 02/24/25 21:23 90 02/24/25 21:10 78 22 107/51 100 02/24/25 20:41 90 02/24/25 20:30 81 15 108/94 97 02/24/25 20:03 98.4 F 80 16 124/80 94 L Intake and Output 02/24/25 02/25/25 02/25/25 22:59 06:59 14:59 Intake Total 100 Output Total 1425 1010 Balance -1325 -1010 Intake: IV 100 Calcium Gluconate in NaCl 100 1 gm In Saline 1 100ml. bag @ 400 mls/hr IVPB ONCE ONE Rx#:[id number] Output: Urine 1425 1010 Other: Weight 116.483 kg 117.4 kg Patient is awake, comfortable, no acute distress Down syndrome facial features noted. Examination of the heart S1 and S2 heard Examination of the lungs shows bilateral breath sounds are heard Abdomen is soft obese nontender Examination of lower extremities shows no significant edema BLADE GROOVER exam shows patient is moving all 4 extremities. Results - Lab Results Most recent lab results Calcium 9.1 mg/dL (8.4-10.2) 02/25/25 01:15 02/25/25 01:15 02/25/25 06:42 Assessment and Plan Assessment: 1. Acute kidney injury, ischemic ATN from hypotension. Blood pressure as low as 87 mmHg for systolic. Currently nonoliguric with improving renal function. UA shows small blood no protein. Rule out urine retention 2. Hyperkalemia associated with acute kidney injury in the setting of use of SHANNON inhibitors and Aldactone, improving 3. Volume overload 4. Acute CHF with preserved ejection fraction 5. Down syndrome Plan: Continue with IV Lasix Repeat Lokelma x 1 Check bladder scan rule out urine retention Check ultrasound of the kidneys Continue to hold SHANNON inhibitors and Aldactone Repeat labs in a.m. Thank you for the consultation. We will continue to follow the patient with you during his hospitalization.
[2025-02-25 12:16] LABS: Influenza A Not Detected (Not Detectd); Influenza B Not Detected (Not Detectd); RSV Not Detected (Not Detectd)
[2025-02-25] MEDS: SODIUM ZIRCONIUM CYCLOSILICATE 10 GM PACKET PO SCH (13:12)
--- NOTE | 2025-02-25 13:32 | CA ---
Transthoracic Echo Report Name: Malik Wilson Age: 49 Gender: M : 1975 Exam Date: 02/25/2025 07:54 Exam Location: [facility] Ht (in): 64 Wt (lb): 256 Ordering Physician: Gerson Bain Attending/Referring Phys: Gastrointestinal Technician Nazanin Jeong RDCS Procedure CPT: Indications: evaluate LV function Cardiac Hx: Technical Quality: Technically difficult study Contrast 1: Definity Total Dose (mL): 4 Contrast 2: Total Dose (mL): MEASUREMENTS (Male / Female) Normal Values 2D ECHO LV Diastolic Diameter PLAX 2.3 cm 4.2 - 5.9 / 3.9 - 5.3 cm LV Systolic Diameter PLAX 1.5 cm IVS Diastolic Thickness 1.1 cm 0.6 - 1.0 / 0.6 - 0.9 cm LVPW Diastolic Thickness 3.7 cm 0.6 - 1.0 / 0.6 - 0.9 cm LV Relative Wall Thickness 2.1 LVOT Diameter 1.8 cm LV Diastolic Volume MOD BP 122.5 cm??? 67 - 155 / 56 - 104 cm??? LV Systolic Volume MOD BP 32.0 cm??? 22 - 58 / 19 - 49 cm??? LV Ejection Fraction MOD BP 73.9 % >= 55 % LV Cardiac Index MOD BP 2998.9 cm???/min???m??? LV Diastolic Volume MOD 4C 116.7 cm??? LV Systolic Volume MOD 4C 33.1 cm??? LV Ejection Fraction MOD 4C 71.6 % LV Cardiac Index MOD 4C 2766.5 cm???/min???m??? LV Diastolic Length 4C 8.4 cm LV Systolic Length 4C 6.4 cm LV Diastolic Volume MOD 2C 116.5 cm??? LV Systolic Volume MOD 2C 30.1 cm??? LV Ejection Fraction MOD 2C 74.2 % LV Cardiac Index MOD 2C 2863.9 cm???/min???m??? LV Diastolic Length 2C 7.6 cm LV Systolic Length 2C 6.2 cm DOPPLER AV Peak Velocity 212.9 cm/s AV Peak Gradient 18.1 mmHg AV Mean Velocity 148.8 cm/s AV Mean Gradient 10.1 mmHg AV Velocity Time Integral 36.8 cm LVOT Peak Velocity 131.0 cm/s LVOT Peak Gradient 6.9 mmHg LVOT Velocity Time Integral 24.8 cm LVOT Stroke Volume 60.5 cm??? LVOT Stroke Volume Index 27.8 ml/m??? LVOT Cardiac Index 2003.8 cm???/min???m??? AV Area Cont Eq vti 1.6 cm??? AV Area Cont Eq pk 1.5 cm??? MV Area PHT 3.5 cm??? Mitral E Point Velocity 82.2 cm/s Mitral A Point Velocity 99.8 cm/s Mitral E to A Ratio 0.8 MV Deceleration Time 218.2 ms PV Peak Velocity 122.8 cm/s PV Peak Gradient 6.0 mmHg FINDINGS Left Ventricle Left ventricular ejection fraction is estimated at 60-65 %. Left ventricular cavity size normal. Left ventricular wall thickness normal. No obvious regional wall motion abnormalities. Right Ventricle Right ventricle not well visualized. Mildly reduced right ventricular global systolic function. Right Atrium Right atrium not well visualized. Left Atrium Normal left atrial size. Mitral Valve Structurally normal mitral valve. No mitral stenosis, regurgitation or prolapse. Aortic Valve Trileaflet aortic valve. Aortic valve sclerosis. No aortic valve stenosis or regurgitation. Tricuspid Valve Structurally normal tricuspid valve. No tricuspid stenosis. No tricuspid regurgitation. Pulmonic Valve Pulmonic valve not well visualized. No pulmonic stenosis. No pulmonic regurgitation. Pericardium No pericardial effusion. Aorta Aortic annulus normal. CONCLUSIONS Left ventricular ejection fraction 60 to 65% No mitral regurgitation No pericardial effusion Previewed by: Dr. Chase Wilcox DO (Electronically Signed) Final Date: 25 Feb 2025 13:31
--- NOTE | 2025-02-25 13:52 | P.HPIM ---
History of Present Illness Patient is a 49-year-old male with known history of Down syndrome obesity obesity hypoventilation syndrome on oxygen at [facility] of failure came in with hypoxemia patient was on BiPAP no high flow oxygen at this time. BNP is around 600 patient does have some pulm edema on the chest x-ray. Patient echo showed EF of around 60% possible diastolic dysfunction patient serum creatinine at baseline is within normal limits it is elevated to 1.76. Potassium was very high on admission , 7.4 which has come down to 5.9 after aggressive treatment of potassium. Patient is bit hypotensive as well patient was on lisinopril as well as Aldactone as an outpatient which are being held at this time patient is on IV Lasix 40 mg twice a day which is being continued. REVIEW OF SYSTEMS: All other systems are negative except those mentioned in the HPI PHYSICAL EXAMINATION: GENERAL: The patient is alert initially does not talk much, not in any acute distress. Obese HEENT: Pupils are round and equally reacting to light. EOMI. No scleral icterus. No conjunctival pallor. Normocephalic, atraumatic. No pharyngeal erythema. No thyromegaly. CARDIOVASCULAR: S1 and S2 present. No murmurs, rubs, or gallops. PULMONARY: Chest is clear to auscultation, no wheezing or crackles. ABDOMEN: Soft, nontender, nondistended, normoactive bowel sounds. No palpable organomegaly. MUSCULOSKELETAL: No joint swelling or deformity. EXTREMITIES: No cyanosis, clubbing, or pedal edema. NEUROLOGICAL: Gross neurological examination did not reveal any focal deficits. SKIN: No rashes. Assessment and plan -Acute hypoxic and possibly probably hypercapnic respiratory failure secondary to some pulmonary edema as well as obesity hypoventilation syndrome and chronic CO2 retention. Patient is on high flow nasal cannula oxygen saturating well at this time - Acute renal failure: Probably prerenal azotemia from heart failure patient was started on Lasix which will be continued close monitoring of the kidney function - Hyperkalemia secondary to acute renal failure Aldactone and lisinopril all of which are being held in patient is receiving IV Lasix for prerenal azotemia with some improvement in her serum creatinine close monitoring of kidney function - Congestive heart failure preserved ejection fraction, chronic diastolic function with acute exacerbation -Hyperlipidemia - Obesity and obesity hypoventilation syndrome, sleep apnea on CPAP machine at home - Hypertension DVT prophylaxis: Subcutaneous heparin Past Medical History Past Medical History: Asthma, Heart Failure, GERD/Reflux, Hyperlipidemia, Memory Impairment Additional Past Medical History / Comment(s): Down syndrome/IQ of about 74, chronic feet issue d/t gout, SHARRI but pt unable to tolerate CPAP, History of Any Multi-Drug Resistant Organisms: None Reported Past Surgical History: Ear Surgery Additional Past Surgical History / Comment(s): Tubes in ears, eye sx-family believes due to weak muscles, cyst removed from back Past Anesthesia/Blood Transfusion Reactions: No Reported Reaction Past Psychological History: No Psychological Hx Reported Smoking Status: Second hand smoke exposure Past Alcohol Use History: None Reported Past Drug Use History: None Reported - Past Family History Mother Family Medical History: Congestive Heart Failure (CHF), GERD/Reflux Additional Family Medical History / Comment(s): Vivienne Medications and Allergies Home Medications Medication Instructions Recorded Confirmed Type Atorvastatin [Lipitor] 40 mg PO DAILY 01/11/16 02/25/25 History Spironolactone [Aldactone] 25 mg PO DAILY 12/15/21 02/25/25 History Aspirin 81 mg PO DAILY #30 01/03/22 02/25/25 Rx lisinopriL [Zestril] 2.5 mg PO DAILY #30 tab 01/03/22 02/25/25 Rx Amino Acids/Protein Hydrolys 1 applic TOPICAL BID 02/25/25 02/25/25 History [Pro-Stat Awc Liquid] Ammonium Lactate Cream [Lac-Hydrin 1 applic TOPICAL BID 02/25/25 02/25/25 History 12% Cream] Ascorbic Acid [Vitamin C] 500 mg PO DAILY 02/25/25 02/25/25 History Esomeprazole Magnesium [NexIUM] 20 mg PO BID 02/25/25 02/25/25 History Fluoride (Sodium) [Prevident] 1 applic TOPICAL HS 02/25/25 02/25/25 History Furosemide [Lasix] 40 mg PO DAILY 02/25/25 02/25/25 History Miconzole Powder 2% 1 applic TOPICAL BID 02/25/25 02/25/25 History Tamsulosin HCl [Flomax] 0.4 mg PO DAILY 02/25/25 02/25/25 History Thiamine [Vitamin B-1] 100 mg PO DAILY 02/25/25 02/25/25 History Allergies Allergy/AdvReac Type Severity Reaction Status Date / Time No Known Allergies Allergy Verified 02/25/25 09:00 Physical Exam Vitals: Vital Signs Temp Pulse Resp BP Pulse Ox FiO2 02/25/25 13:00 76 16 98/50 90 L 02/25/25 12:00 98.2 F 80 18 96/51 90 L 90 02/25/25 11:22 77 90 L 92 02/25/25 11:00 76 18 104/72 88 L 02/25/25 10:00 78 16 122/80 90 L 02/25/25 09:00 83 12 101/75 89 L 02/25/25 08:33 88 02/25/25 08:16 80 91 L 92 02/25/25 08:00 98.6 F 80 21 103/48 93 L 90 02/25/25 07:00 80 12 103/55 93 L 02/25/25 06:00 80 20 115/37 91 L 02/25/25 05:00 85 12 118/52 90 L 02/25/25 04:00 98.5 F 85 24 87/57 92 L 90 02/25/25 03:10 92 02/25/25 03:00 84 18 94/72 90 L 02/25/25 02:00 85 15 124/62 93 L 02/25/25 01:00 78 21 124/62 93 L 90 02/25/25 00:50 90 02/25/25 00:25 98.1 F 78 22 118/54 97 90 02/24/25 23:45 75 14 100/65 95 02/24/25 23:36 90 02/24/25 23:00 86 14 91/51 95 02/24/25 22:00 84 13 122/90 94 L 02/24/25 21:50 85 02/24/25 21:38 80 02/24/25 21:23 90 02/24/25 21:10 78 22 107/51 100 02/24/25 20:41 90 02/24/25 20:30 81 15 108/94 97 02/24/25 20:03 98.4 F 80 16 124/80 94 L Intake and Output 02/24/25 02/25/25 02/25/25 22:59 06:59 14:59 Intake Total 100 Output Total 6905 9955 Balance -1324 -1386 Intake: IV 100 Calcium Gluconate in NaCl 100 1 gm In Saline 1 100ml. bag @ 400 mls/hr IVPB ONCE ONE Rx#:[id number] Output: Urine 1425 1385 Other: Weight 116.483 kg 117.4 kg Results CBC & Chem 7: 02/25/25 01:15 02/25/25 11:39 Labs: Abnormal Lab Results - Last 24 Hours (Table) 02/24/25 02/24/25 02/24/25 Range/Units 20:32 20:32 20:32 MCV 99.0 H (80.0-97.0) fL MCHC 29.7 L (32.0-37.0) g/dL Immature Gran # 0.18 H (0.00-0.04) 10*3/uL Lymphocytes # 0.46 L (0.90-5.00) 10*3/uL Monocytes # 0.07 L (0.20-1.00) 10*3/uL Eosinophils # 0.00 L (0.04-0.35) 10*3/uL VBG pCO2 63 H (37-51) mmHg VBG HCO3 33 H (24-28) mmol/L Sodium 134 L (137-145) mmol/L Potassium 7.4 H* (3.5-5.1) mmol/L Chloride 94 L (98-107) mmol/L Carbon Dioxide 34 H (22-30) mmol/L BUN 60 H (9-20) mg/dL Creatinine 1.85 H (0.66-1.25) mg/dL Glucose 229 H (74-99) mg/dL POC Glucose (mg/dL) (70-110) mg/dL AST (17-59) U/L Albumin 3.4 L (3.5-5.0) g/dL Urine Blood (Negative) Ur Leukocyte Esterase (Negative) Urine RBC (0-5) /hpf Urine WBC (0-5) /hpf Urine WBC Clumps (None) /hpf Amorphous Sediment (None) /hpf Urine Bacteria (None) /hpf Hyaline Casts (0-2) /lpf Urine Mucus (None) /hpf Urine Yeast (Budding) (None) /hpf 02/24/25 02/24/25 02/24/25 Range/Units 21:34 23:03 23:46 MCV (80.0-97.0) fL MCHC (32.0-37.0) g/dL Immature Gran # (0.00-0.04) 10*3/uL Lymphocytes # (0.90-5.00) 10*3/uL Monocytes # (0.20-1.00) 10*3/uL Eosinophils # (0.04-0.35) 10*3/uL VBG pCO2 (37-51) mmHg VBG HCO3 (24-28) mmol/L Sodium (137-145) mmol/L Potassium 7.4 H* (3.5-5.1) mmol/L Chloride (98-107) mmol/L Carbon Dioxide (22-30) mmol/L BUN (9-20) mg/dL Creatinine (0.66-1.25) mg/dL Glucose (74-99) mg/dL POC Glucose (mg/dL) 392 H 317 H (70-110) mg/dL AST (17-59) U/L Albumin (3.5-5.0) g/dL Urine Blood (Negative) Ur Leukocyte Esterase (Negative) Urine RBC (0-5) /hpf Urine WBC (0-5) /hpf Urine WBC Clumps (None) /hpf Amorphous Sediment (None) /hpf Urine Bacteria (None) /hpf Hyaline Casts (0-2) /lpf Urine Mucus (None) /hpf Urine Yeast (Budding) (None) /hpf 02/25/25 02/25/25 02/25/25 Range/Units 00:25 01:15 01:15 MCV 99.3 H (80.0-97.0) fL MCHC 30.3 L (32.0-37.0) g/dL Immature Gran # 0.21 H (0.00-0.04) 10*3/uL Lymphocytes # 0.62 L (0.90-5.00) 10*3/uL Monocytes # 0.04 L (0.20-1.00) 10*3/uL Eosinophils # 0.00 L (0.04-0.35) 10*3/uL VBG pCO2 (37-51) mmHg VBG HCO3 (24-28) mmol/L Sodium 135 L (137-145) mmol/L Potassium 7.2 H* (3.5-5.1) mmol/L Chloride 91 L (98-107) mmol/L Carbon Dioxide 37 H (22-30) mmol/L BUN 56 H (9-20) mg/dL Creatinine 1.76 H (0.66-1.25) mg/dL Glucose 139 H (74-99) mg/dL POC Glucose (mg/dL) 131 H (70-110) mg/dL AST 15 L (17-59) U/L Albumin 3.3 L (3.5-5.0) g/dL Urine Blood (Negative) Ur Leukocyte Esterase (Negative) Urine RBC (0-5) /hpf Urine WBC (0-5) /hpf Urine WBC Clumps (None) /hpf Amorphous Sediment (None) /hpf Urine Bacteria (None) /hpf Hyaline Casts (0-2) /lpf Urine Mucus (None) /hpf Urine Yeast (Budding) (None) /hpf 02/25/25 02/25/25 02/25/25 Range/Units 02:13 06:42 11:39 MCV (80.0-97.0) fL MCHC (32.0-37.0) g/dL Immature Gran # (0.00-0.04) 10*3/uL Lymphocytes # (0.90-5.00) 10*3/uL Monocytes # (0.20-1.00) 10*3/uL Eosinophils # (0.04-0.35) 10*3/uL VBG pCO2 (37-51) mmHg VBG HCO3 (24-28) mmol/L Sodium (137-145) mmol/L Potassium 6.1 H* 5.9 H (3.5-5.1) mmol/L Chloride (98-107) mmol/L Carbon Dioxide (22-30) mmol/L BUN (9-20) mg/dL Creatinine (0.66-1.25) mg/dL Glucose (74-99) mg/dL POC Glucose (mg/dL) (70-110) mg/dL AST (17-59) U/L Albumin (3.5-5.0) g/dL Urine Blood Small H (Negative) Ur Leukocyte Esterase Small H (Negative) Urine RBC 9 H (0-5) /hpf Urine WBC 12 H (0-5) /hpf Urine WBC Clumps Rare H (None) /hpf Amorphous Sediment Rare H (None) /hpf Urine Bacteria Rare H (None) /hpf Hyaline Casts 5 H (0-2) /lpf Urine Mucus Rare H (None) /hpf Urine Yeast (Budding) Few H (None) /hpf Thrombosis Risk Factor Assmnt - Choose All That Apply Each Factor Represents 1 point: Age 41-60 years, Medical pt on bed rest, Obesity (BMI >25) Each Risk Factor Represents 2 Points: Patient confined to bed Thrombosis Risk Factor Assessment Total Risk Factor Score: 5 Thrombosis Risk Factor Assessment Level: High Risk
[2025-02-25] MEDS: HEPARIN SODIUM,PORCINE 5,000 UNIT/ML 1 ML VIAL SQ SCH (16:35)
[2025-02-25 20:02] LABS: Glucose,Whole Blood 216 mg/dL (70-110)
[2025-02-26 07:19] LABS: Basophils # (A) 0.03 10*3/uL (0.00-0.10); Basophils % (A) 0.4 %; Eosinophils # (A) 0.01 10*3/uL (0.04-0.35); Eosinophils % (A) 0.1 %; HCT 43.8 % (39.6-50.0); HGB 13.9 g/dL (13.0-17.0); Lymphocytes # (A) 2.81 10*3/uL (0.90-5.00); Lymphocytes % (A) 33.7 %; MCHC 31.7 g/dL (32.0-37.0); MCV 94.6 fL (80.0-97.0); Mean Platelet Volume 9.9 fL (9.5-12.2); Monocytes # (A) 0.66 10*3/uL (0.20-1.00); Monocytes % (A) 7.9 %; Neutrophils # (A) 4.68 10*3/uL (1.80-7.70); Neutrophils % (A) 56.2 %; Platelet Count 259 10*3/uL (140-440); RBC 4.63 10*6/uL (4.40-5.60); RDW 20.3 % (11.5-14.5); WBC 8.33 10*3/uL (4.50-10.00)
[2025-02-26 07:22] LABS: African American GFR (CKD) 77 (>60 ml/min/1.73 sqM); Anion Gap 6 mmol/L; Blood Urea Nitrogen 44 mg/dL (9-20); Calcium 8.9 mg/dL (8.4-10.2); Chloride 90 mmol/L (98-107); Glucose 109 mg/dL (74-99); Non-African American GFR(CKD) 67 (>60 ml/min/1.73 sqM); Sodium 136 mmol/L (137-145)
--- NOTE | 2025-02-26 07:37 | XR ---
EXAMINATION TYPE: XR chest 1V portable DATE OF EXAM: 02/26/2025 5:33 AM COMPARISON: None. CLINICAL INDICATION: Male, 49 years old with history of CHF, TECHNIQUE: XR chest 1V portable views of the chest are obtained. FINDINGS: Demonstrated are scattered senescent parenchymal change. There is improved pulmonary venous congestion. Scattered infiltrates persist. Continued cardiomegaly. Hilar and mediastinal structures are within normal limits. Degenerative changes are seen of the dorsal spine. IMPRESSION: 1. There is improved pulmonary venous congestion. Scattered infiltrates persist. Continued cardiomeg arian. [facility], , 02/26/2025 7:35 AM
[2025-02-26 07:41] LABS: Carbon Dioxide 38 mmol/L (22-30)
--- NOTE | 2025-02-26 10:51 | PN ---
PROGRESS NOTE SUBJECTIVE: Malik is a 49-year-old gentleman with history of hyperlipidemia, asthma, GERD, Down syndrome, obstructive sleep apnea, who lives at [facility], presented to the hospital with acute onset congestive heart failure. He is doing better today. Shortness of breath and hypoxia have improved. PHYSICAL EXAMINATION: VITAL SIGNS: Heart rate is 67 beats per minute. Blood pressure is 91/62, respiratory rate is 12. His O2 saturation is 89% on high-flow nasal cannula. CHEST: Reveals diminished air entry at the bases without any crackles or rhonchi. HEART: Reveals first and second heart sounds. No gallop. ABDOMEN: Soft. EXTREMITIES: Did not reveal any edema. Peripheral pulses are felt. LABORATORY DATA: Labs show a hemoglobin of 13.9, platelet count is 259, potassium is 5, creatinine is 1.2. The patient is on Lasix 40 mg IV q.12. the echocardiogram showed normal LV systolic function. CONCLUSIONS: Acute on chronic diastolic heart failure. PLAN: I am going to leave him on IV Lasix today and switch him to oral Lasix tomorrow. MMODL / IJN: [id number] /
--- NOTE | 2025-02-26 12:40 | P.PN ---
Subjective Progress Note Date: 02/26/25 Principal diagnosis: Acute on chronic hypoxic and hypercapnic respiratory failure, mostly secondary to acute on chronic diastolic congestive heart failure, morbid obesity, obesity hypoventilation syndrome, and history of trisomy 21 Patient is a 49-year-old male with past medical history significant for Down syndrome, congestive heart failure, obstructive sleep apnea unable to tolerate CPAP, hypertension, hyperlipidemia, gastroesophageal reflux disease and previous episodes of aspiration. Patient was at his ECF, [facility], found in some respiratory distress. SpO2 was reading low in the 70s. Placed back on supplemental oxygen. I am told he chronically wears 3 L/min nasal cannula at bedtime. Did receive a dose of 40 mg IV Lasix at outside facility. Sent in the emergency department late last night on a nonrebreather. Did not tolerate noninvasive CPAP/BiPAP in the ER. He is currently on Airvo with settings 50 L and 90%. SpO2 recorded around 97%. Workup including a chest x-ray showing cardiomegaly, pulmonary vascular congestion, and probable bilateral pleural effusions. He did receive a additional dose of IV Lasix 20 mg. He was also found to be severely hyperkalemic, with a potassium of 7.4 treated with one half amp D50 W, 10 units regular insulin, 1 amp sodium bicarbonate, concentrated albuterol, and 10 g of Lokelma. VBG: pCO2 of 63, pH of 7.33. Remaining labs including a CBC: WBC count 7.5, hemoglobin 14.3, platelets 243. CMP: Sodium 134, potassium 7.4, chloride 94, serum bicarb 34, BUN 60, creatinine 1.85, glucose 229. LFTs unremarkable. Troponin less than 0.012. NT proBNP only 576. EKG, non-bradycardic, poor quality and will have to be repeated. Patient currently being evaluated in the trauma bay 1. He is awake and alert, unable to provide any further information. Apprehensive of care. Denies any pain. No recorded fevers. No coughing. Tachypneic. On Airvo with above-mentioned settings. He does have a chronic indwelling urinary catheter, and there is ample urine in the bag. Current vital signs: Temperature 98.1 F, heart rate 78 bpm, blood pressure 118/54 mmHg, SpO2 recorded at 97% on Airvo. Patient was seen today on 02/26/2025, patient remains in the ICU, remains on Airvo requiring FiO2 of 80% and flow of 60 L/min. His overall pulmonary status is marginal patient looks comfortable, not in any distress. Denies any shortness of breath, remains on diuretics and seems to be clinically improving. Chest x- ray today showed improved pulmonary vascular congestion and scattered infiltrates persist. CBC is relatively normal potassium is back to 5.0 renal profile significantly improved with BUN of 44 creatinine 1.25 Objective - Vital Signs Vital signs: Vital Signs Temp 98.7 F 02/26/25 12:00 Pulse 66 02/26/25 12:16 Resp 21 02/26/25 12:00 BP 83/49 02/26/25 12:00 Pulse Ox 87 L 02/26/25 12:00 FiO2 92 02/26/25 12:01 Intake & Output 02/25/25 02/26/25 02/26/25 18:59 06:59 18:59 Intake Total 360 1700 Output Total 1890 1200 1205 Balance -1530 -1200 495 Weight 112.8 kg Intake: Oral 360 1700 Output: Urine 1890 1200 1205 - Exam GENERAL EXAM: Alert, 49-year-old obese male, clinical features of Down syndrome on Airvo, not in distress HEAD: Brachycephaly, short nasal bridge, low-set ears, and atraumatic EYES: Normal reaction of pupils, equal size. NOSE: Clear with pink turbinates. THROAT: No erythema or exudates. NECK: No masses, no JVD. CHEST: No chest wall deformity. LUNGS: Diminished breath sounds at the bases no crackles rhonchi or wheezes CVS: S1 and S2 normal with no audible murmur, regular rhythm. No extra heart sounds ABDOMEN: No hepatosplenomegaly, active bowel sounds, no guarding or rigidity. SKIN: No rashes. Diffuse seborrheic keratosis CENTRAL NERVOUS SYSTEM: No focal deficits, tone is normal in all 4 extremities. EXTREMITIES: No clubbing, no edema, no cyanosis - Labs CBC & Chem 7: 02/26/25 06:42 02/26/25 06:42 Labs: Abnormal Lab Results - Last 24 Hours (Table) 02/25/25 02/26/25 02/26/25 Range/Units 20:01 06:42 06:42 MCHC 31.7 L (32.0-37.0) g/dL Immature Gran # 0.14 H (0.00-0.04) 10*3/uL Eosinophils # 0.01 L (0.04-0.35) 10*3/uL Sodium 136 L (137-145) mmol/L Chloride 90 L (98-107) mmol/L Carbon Dioxide 38 H (22-30) mmol/L BUN 44 H (9-20) mg/dL Glucose 109 H (74-99) mg/dL POC Glucose (mg/dL) 216 H (70-110) mg/dL Assessment and Plan Assessment: Impression: Acute on chronic hypoxemic and hypercapnic respiratory failure, currently on Airvo, suspect secondary to an exacerbation of diastolic congestive heart failure and underlying obesity hypoventilation syndrome, improving but still requiring relatively high FiO2/Airvo History of heart failure with preserved ejection fraction Severe hyperkalemia, resolved Acute kidney injury, creatinine 1.85, resolving History obstructive sleep apnea, unable to tolerate CPAP Morbid obesity, with a BMI of 44.1 kg/m History of hyperlipidemia Hypertension History of trisomy 21 Recommendation: Continue Airvo and titrate FiO2 accordingly Continue diuretics Lasix 40 mg IV push twice daily Continue to monitor daily labs Continue to hold SHANNON inhibitor's and Aldactone Continue to monitor in the ICU for the next 24 hours Use BiPAP if necessary Will continue to follow Time with Patient: Less than 30
--- NOTE | 2025-02-26 14:55 | P.PN ---
Subjective Progress Note Date: 02/26/25 Patient is a 49-year-old male with known history of Down syndrome obesity obesity hypoventilation syndrome on oxygen at [facility] of failure came in with hypoxemia patient was on BiPAP no high flow oxygen at this time. BNP is around 600 patient does have some pulm edema on the chest x-ray. Patient echo showed EF of around 60% possible diastolic dysfunction patient serum creatinine at baseline is within normal limits it is elevated to 1.76. Potassium was very high on admission , 7.4 which has come down to 5.9 after aggressive treatment of potassium. Patient is bit hypotensive as well patient was on lisinopril as well as Aldactone as an outpatient which are being held at this time patient is on IV Lasix 40 mg twice a day which is being continued. 02/26/2025 Patient eval today in the intensive care unit. He is lethargic. He continues on Airvo. He remains on IV Lasix. His labs have improved with a BUN of 44 creatinine 1.25 with sodium level 136 today. Chest x-ray does not show improved CHF. His potassium was also down to 5.0. Unable to complete review of systems PHYSICAL EXAMINATION: GENERAL: The patient is alert initially does not talk much, not in any acute distress. Obese HEENT: Pupils are round and equally reacting to light. EOMI. No scleral icterus. No conjunctival pallor. Normocephalic, atraumatic. No pharyngeal erythema. No thyromegaly. Enlarged tongue,. CARDIOVASCULAR: S1 and S2 present. No murmurs, rubs, or gallops. PULMONARY: Chest is clear to auscultation, no wheezing or crackles. ABDOMEN: Soft, nontender, nondistended, normoactive bowel sounds. No palpable organomegaly. MUSCULOSKELETAL: No joint swelling or deformity. EXTREMITIES: No cyanosis, clubbing, or pedal edema. NEUROLOGICAL: Gross neurological examination did not reveal any focal deficits. SKIN: No rashes. Assessment and plan - Acute hypoxic and possibly probably hypercapnic respiratory failure secondary to some pulmonary edema as well as obesity hypoventilation syndrome and chronic CO2 retention. - Acute renal failure: Probably prerenal azotemia from heart failure - Hyperkalemia secondary to acute renal failure Aldactone and lisinopril all of which are being held - Congestive heart failure preserved ejection fraction, chronic diastolic function with acute exacerbation - Hyperlipidemia - Obesity and obesity hypoventilation syndrome, sleep apnea on CPAP machine at home - Hypertension DVT prophylaxis: Subcutaneous heparin Plan - Continue ICU care - Patient is on high flow nasal cannula oxygen saturating well at this time - Patient was started on Lasix which will be continued close monitoring of the kidney function - Monitor renal function and electrolyes - Continue strict intake and output monitioring - Add miconazole for the crusting on the scalp and around ears The impression and plan of care has been dictated by Deb Ortega, Nurse Practitioner as directed. Dr. Sarah MD I have performed a history and physical examination and medical decision making of this patient, discussed the same with the dictator, and agree with the dictators assessment and plan as written, documented as a scribe. Based on total visit time, I have performed more than 50% of this visit. Objective - Vital Signs Vital signs: Vital Signs Temp 98.7 F 02/26/25 12:00 Pulse 64 02/26/25 14:00 Resp 23 02/26/25 14:00 BP 103/50 02/26/25 14:00 Pulse Ox 91 L 02/26/25 14:00 FiO2 92 02/26/25 12:01 Intake & Output 02/25/25 02/26/25 02/26/25 18:59 06:59 18:59 Intake Total 360 1900 Output Total 1890 1200 1730 Balance -1530 -1200 170 Weight 112.8 kg Intake: Oral 360 1900 Output: Urine 1890 1200 1730 - Labs CBC & Chem 7: 02/26/25 06:42 02/26/25 06:42 Labs: Abnormal Lab Results - Last 24 Hours (Table) 02/25/25 02/26/25 02/26/25 Range/Units 20:01 06:42 06:42 MCHC 31.7 L (32.0-37.0) g/dL Immature Gran # 0.14 H (0.00-0.04) 10*3/uL Eosinophils # 0.01 L (0.04-0.35) 10*3/uL Sodium 136 L (137-145) mmol/L Chloride 90 L (98-107) mmol/L Carbon Dioxide 38 H (22-30) mmol/L BUN 44 H (9-20) mg/dL Glucose 109 H (74-99) mg/dL POC Glucose (mg/dL) 216 H (70-110) mg/dL Assessment and Plan Time with Patient: Less than 30
--- NOTE | 2025-02-26 16:39 | P.PN ---
Subjective Patient is seen for follow-up for acute kidney injury and hyperkalemia. Currently being diuresed. Renal function has improved. Potassium improved to 5.0 and serum creatinine is down to 1.2. Maintained on IV Lasix 40 mg every 12 hours. No significant complaints today. Objective - Vital Signs Vital signs: Vital Signs Temp 98.7 F 02/26/25 12:00 Pulse 64 02/26/25 15:57 Resp 23 02/26/25 14:00 BP 103/50 02/26/25 14:00 Pulse Ox 91 L 02/26/25 15:48 FiO2 94 02/26/25 15:48 Intake & Output 02/25/25 02/26/25 02/26/25 18:59 06:59 18:59 Intake Total 360 1900 Output Total 1890 1200 1805 Balance -1530 -1200 95 Weight 112.8 kg Intake: Oral 360 1900 Output: Urine 1890 1200 1805 - Exam Patient is awake, comfortable, no acute distress Down syndrome facial features. Examination of the heart S1 and S2 Examination of the lungs shows bilateral breath sounds are heard Abdomen is soft nontender Examination of lower extremity shows no significant edema - Labs CBC & Chem 7: 02/26/25 06:42 02/26/25 06:42 Labs: Abnormal Lab Results - Last 24 Hours (Table) 02/25/25 02/26/25 02/26/25 Range/Units 20:01 06:42 06:42 MCHC 31.7 L (32.0-37.0) g/dL Immature Gran # 0.14 H (0.00-0.04) 10*3/uL Eosinophils # 0.01 L (0.04-0.35) 10*3/uL Sodium 136 L (137-145) mmol/L Chloride 90 L (98-107) mmol/L Carbon Dioxide 38 H (22-30) mmol/L BUN 44 H (9-20) mg/dL Glucose 109 H (74-99) mg/dL POC Glucose (mg/dL) 216 H (70-110) mg/dL Assessment and Plan Assessment: 1. Acute kidney injury, ischemic ATN from hypotension. Blood pressure as low as 87 mmHg for systolic, now improved. Currently nonoliguric with improving renal function. UA shows small blood no protein. No urine retention. 2. Hyperkalemia associated with acute kidney injury in the setting of use of SHANNON inhibitors and Aldactone, improving 3. Volume overload 4. Acute CHF with preserved ejection fraction 5. Down syndrome Plan: Continue with IV Lasix Continue to hold SHANNON inhibitors and Aldactone Repeat labs in a.m. Continue Flomax.
[2025-02-26] MEDS: TAMSULOSIN 0.4 MG CAP.ER.24H PO SCH (21:06)
[2025-02-26] MEDS: ATORVASTATIN 40 MG TAB PO SCH (21:06)
[2025-02-26] MEDS: ASPIRIN 81 MG PO SCH (21:07)
[2025-02-26] MEDS: THIAMINE 100 MG TAB PO SCH (21:09)
[2025-02-27 05:37] LABS: Basophils # (A) 0.05 10*3/uL (0.00-0.10); Basophils % (A) 0.5 %; Eosinophils # (A) 0.08 10*3/uL (0.04-0.35); Eosinophils % (A) 0.9 %; HCT 44.1 % (39.6-50.0); HGB 14.1 g/dL (13.0-17.0); Lymphocytes # (A) 3.61 10*3/uL (0.90-5.00); Lymphocytes % (A) 38.7 %; MCH 30.1 pg (27.0-32.0); MCV 94.2 fL (80.0-97.0); Mean Platelet Volume 10.9 fL (9.5-12.2); Monocytes # (A) 0.78 10*3/uL (0.20-1.00); Monocytes % (A) 8.4 %; Neutrophils # (A) 4.68 10*3/uL (1.80-7.70); Neutrophils % (A) 50.1 %; Platelet Count 263 10*3/uL (140-440); RBC 4.68 10*6/uL (4.40-5.60); RDW 20.2 % (11.5-14.5); WBC 9.33 10*3/uL (4.50-10.00)
[2025-02-27 05:44] LABS: African American GFR (CKD) >90 (>60 ml/min/1.73 sqM); Blood Urea Nitrogen 38 mg/dL (9-20); Calcium 8.7 mg/dL (8.4-10.2); Chloride 85 mmol/L (98-107); Glucose 105 mg/dL (74-99); Non-African American GFR(CKD) >90 (>60 ml/min/1.73 sqM); Potassium 4.5 mmol/L (3.5-5.1); Sodium 130 mmol/L (137-145)
[2025-02-27 05:51] LABS: Anion Gap 7 mmol/L; Carbon Dioxide 38 mmol/L (22-30)
--- NOTE | 2025-02-27 07:02 | XR ---
EXAMINATION TYPE: XR chest 1V portable DATE OF EXAM: 02/27/2025 CLINICAL INDICATION: Male, 49 years old with history of chf exac, progress study. TECHNIQUE: Single AP portable upright view of the chest is obtained. COMPARISON: Chest x-ray from one day earlier and older studies. FINDINGS: Persistent cardiomegaly. Persistent chronic parenchymal changes with left greater than rig ht bibasilar increased opacities. Osseous structures are intact. IMPRESSION: Cardiomegaly with left greater than right bilateral bibasilar acute infiltrates and/or at electasis. No significant change from one day earlier. [facility], , 02/27/2025 7:00 AM
--- NOTE | 2025-02-27 09:37 | P.PN ---
Subjective Progress Note Date: 02/27/25 Principal diagnosis: Hospital course: Patient is a 49 year old male with past medical history of asthma, hyperlipidemia, GERD, Down syndrome, hyperlipidemia, congestive heart failure, SHARRI residing at [facility]. The patient was found to be in some respiratory distress at her ECF. Patient uses oxygen at home at 3 L/min at bedtime. The patient was found to have his oxygen off and was saturating in the 70s. Patient was sent to the emergency department last night on a nonrebreather and did not tolerate CPAP/BiPAP in the ER. Patient seen today in cardiac consultation for possible CHF. Patient is unable to provide any history. ED documentation reviewed. Vitals T90 8.6 F, NJ 88 bpm, RR 21, BP 103/48, SPO2 91% on 60 L and 92% FiO2 via Airvo EKG independently interpreted as sinus rhythm, rate 81 bpm, QTc 371 ms Chest x-ray shows scattered perihilar and basilar infiltrates noted with continued cardiomegaly and pulmonary venous congestion Labs show WBC 5.38, hemoglobin 13.9, platelet count 265, INR 1.0, sodium 135, potassium 6.1, chloride 91, bicarb 37, BUN 56, creatinine 1.76, albumin 3.3 Troponin I <0.012, NT proBNP 576 UA shows small blood, small leukocyte esterase, 9 RBC, 20 WBC, 5 hyaline cast and few budding yeast Echocardiogram obtained in Nov 2021 showed left ventricular systolic function is low-normal with EF 50 to 55%, right ventricle normal in size. 02/26/25: He is doing better today. Shortness of breath and hypoxia have improved. 02/27/25: Patient seen and examined at bedside today. Denies any new complaints. He continues to be on Airvo. Pulse 67, BP 97/54 WBC 9.33, hemoglobin 14.1, sodium 130, potassium 4.5, bicarb 38, BUN 38, creatinine 0.96 Chest x-ray today shows Cardiomegaly with left greater than right bilateral bibasilar acute infiltrates and/or atelectasis, no significant change from 1 day earlier Echocardiogram showed EF 60 to 65%, no mitral regurgitation, no pericardial eff usion. Review of systems: Pertinent positives and negatives as discussed in HPI, a complete review of systems was performed and all other systems are negative. Physical examination: Vital signs reviewed GENERAL: This is a 49-year-old obese male, not in acute distress HEENT: Head is atraumatic. NECK: Supple, no JVD LUNGS: CTA bilaterally, no wheezes, no crackles HEART: S1-S2 audible ABDOMEN: Soft, nontender EXTREMITIES: Trace edema Detailed neuro exam was not performed. Assessment: Acute on chronic hypoxic and hypercapnic respiratory failure Acute onset diastolic congestive heart failure exacerbation Hyerkalemia CASSIUS Hypertension Hyperlipidemia Down syndrome History of SHARRI Plan: Furosemide changed from IV to PO 40 mg BID Continue home medications Aspirin 81 and Lipitor 40 Hold nephrotoxic medications We will continue to monitor Dictation was produced using [employer] dictation software. please excuse any grammatical, word or spelling errors. Curly Bourne MD PGY-1 IM I have seen and evaluated the patient today. Discussed with the resident and agree with the residents finding and plan as documented in the resident's note. Objective - Vital Signs Vital signs: Vital Signs Temp 98.1 F 02/27/25 00:00 Pulse 67 02/27/25 06:00 Resp 18 02/27/25 06:00 BP 97/54 02/27/25 06:00 Pulse Ox 90 L 02/27/25 06:00 FiO2 91 02/27/25 04:12 Intake & Output 02/26/25 02/26/25 02/27/25 06:59 18:59 06:59 Intake Total 1900 1440 Output Total 1200 2055 1370 Balance -1200 -155 70 Weight 112.8 kg 116.8 kg Intake: Oral 1900 1440 Output: Urine 1200 2055 1370 Other: # Bowel Movements 1 - Labs CBC & Chem 7: 02/27/25 04:53 02/27/25 04:53 Labs: Abnormal Lab Results - Last 24 Hours (Table) 02/26/25 02/26/25 02/27/25 Range/Units 06:42 06:42 04:53 MCHC 31.7 L (32.0-37.0) g/dL Immature Gran # 0.14 H 0.13 H (0.00-0.04) 10*3/uL Eosinophils # 0.01 L (0.04-0.35) 10*3/uL Sodium 136 L (137-145) mmol/L Chloride 90 L (98-107) mmol/L Carbon Dioxide 38 H (22-30) mmol/L BUN 44 H (9-20) mg/dL Glucose 109 H (74-99) mg/dL 02/27/25 Range/Units 04:53 MCHC (32.0-37.0) g/dL Immature Gran # (0.00-0.04) 10*3/uL Eosinophils # (0.04-0.35) 10*3/uL Sodium 130 L (137-145) mmol/L Chloride 85 L (98-107) mmol/L Carbon Dioxide 38 H (22-30) mmol/L BUN 38 H (9-20) mg/dL Glucose 105 H (74-99) mg/dL
--- NOTE | 2025-02-27 12:06 | P.PN ---
Subjective Progress Note Date: 02/27/25 Principal diagnosis: Acute on chronic hypoxic and hypercapnic respiratory failure, mostly secondary to acute on chronic diastolic congestive heart failure, morbid obesity, obesity hypoventilation syndrome, and history of trisomy 21 Patient is a 49-year-old male with past medical history significant for Down syndrome, congestive heart failure, obstructive sleep apnea unable to tolerate CPAP, hypertension, hyperlipidemia, gastroesophageal reflux disease and previous episodes of aspiration. Patient was at his ECF, [facility], found in some respiratory distress. SpO2 was reading low in the 70s. Placed back on supplemental oxygen. I am told he chronically wears 3 L/min nasal cannula at bedtime. Did receive a dose of 40 mg IV Lasix at outside facility. Sent in the emergency department late last night on a nonrebreather. Did not tolerate noninvasive CPAP/BiPAP in the ER. He is currently on Airvo with settings 50 L and 90%. SpO2 recorded around 97%. Workup including a chest x-ray showing cardiomegaly, pulmonary vascular congestion, and probable bilateral pleural effusions. He did receive a additional dose of IV Lasix 20 mg. He was also found to be severely hyperkalemic, with a potassium of 7.4 treated with one half amp D50 W, 10 units regular insulin, 1 amp sodium bicarbonate, concentrated albuterol, and 10 g of Lokelma. VBG: pCO2 of 63, pH of 7.33. Remaining labs including a CBC: WBC count 7.5, hemoglobin 14.3, platelets 243. CMP: Sodium 134, potassium 7.4, chloride 94, serum bicarb 34, BUN 60, creatinine 1.85, glucose 229. LFTs unremarkable. Troponin less than 0.012. NT proBNP only 576. EKG, non-bradycardic, poor quality and will have to be repeated. Patient currently being evaluated in the trauma bay 1. He is awake and alert, unable to provide any further information. Apprehensive of care. Denies any pain. No recorded fevers. No coughing. Tachypneic. On Airvo with above-mentioned settings. He does have a chronic indwelling urinary catheter, and there is ample urine in the bag. Current vital signs: Temperature 98.1 F, heart rate 78 bpm, blood pressure 118/54 mmHg, SpO2 recorded at 97% on Airvo. Patient was seen today on 02/26/2025, patient remains in the ICU, remains on Airvo requiring FiO2 of 80% and flow of 60 L/min. His overall pulmonary status is marginal patient looks comfortable, not in any distress. Denies any shortness of breath, remains on diuretics and seems to be clinically improving. Chest x- ray today showed improved pulmonary vascular congestion and scattered infiltrates persist. CBC is relatively normal potassium is back to 5.0 renal profile significantly improved with BUN of 44 creatinine 1.25 Patient was seen today on 02/27/2025, remains in the ICU, on Airvo 90% FiO2 6 0 L flow, about the same, does not seem to be in any distress remains on Lasix 40 mg twice daily chest x-ray is steadily showing improvement in his pulmonary edema. WBC count is 9.3 hemoglobin 14.1 electrolytes are normal bicarb is 38 BUN is 38 creatinine 0.96 Objective - Vital Signs Vital signs: Vital Signs Temp 98.9 F 02/27/25 08:00 Pulse 70 02/27/25 11:40 Resp 25 H 02/27/25 11:00 BP 106/62 02/27/25 11:00 Pulse Ox 90 L 02/27/25 11:25 FiO2 90 02/27/25 11:25 Intake & Output 02/26/25 02/27/25 02/27/25 18:59 06:59 18:59 Intake Total 1900 1440 750 Output Total 2054 1370 860 Balance -155 70 -110 Weight 116.8 kg Intake: Oral 1900 1440 750 Output: Urine 2054 1370 860 Other: # Bowel Movements 1 - Exam GENERAL EXAM: Alert, 49-year-old obese male, clinical features of Down syndrome on Airvo, not in distress HEAD: Brachycephaly, short nasal bridge, low-set ears, and atraumatic EYES: Normal reaction of pupils, equal size. NOSE: Clear with pink turbinates. THROAT: No erythema or exudates. NECK: No masses, no JVD. CHEST: No chest wall deformity. LUNGS: Diminished breath sounds at the bases no crackles rhonchi or wheezes CVS: S1 and S2 normal with no audible murmur, regular rhythm. No extra heart sounds ABDOMEN: No hepatosplenomegaly, active bowel sounds, no guarding or rigidity. SKIN: No rashes. Diffuse seborrheic keratosis CENTRAL NERVOUS SYSTEM: No focal deficits, tone is normal in all 4 extremities. EXTREMITIES: No clubbing, no edema, no cyanosis - Labs CBC & Chem 7: 02/27/25 04:53 02/27/25 04:53 Labs: Abnormal Lab Results - Last 24 Hours (Table) 02/27/25 02/27/25 Range/Units 04:53 04:53 Immature Gran # 0.13 H (0.00-0.04) 10*3/uL Sodium 130 L (137-145) mmol/L Chloride 85 L (98-107) mmol/L Carbon Dioxide 38 H (22-30) mmol/L BUN 38 H (9-20) mg/dL Glucose 105 H (74-99) mg/dL Assessment and Plan Assessment: Impression: Acute on chronic hypoxemic and hypercapnic respiratory failure, currently on Airvo, suspect secondary to an exacerbation of diastolic congestive heart failure and underlying obesity hypoventilation syndrome, History of heart failure with preserved ejection fraction Severe hyperkalemia, resolved Acute kidney injury, creatinine 1.85, resolving History obstructive sleep apnea, unable to tolerate CPAP Morbid obesity, with a BMI of 44.1 kg/m History of hyperlipidemia Hypertension History of trisomy 21 Recommendation: Continue Airvo and titrate FiO2 accordingly Continue diuretics Lasix 40 mg IV push twice daily Continue to monitor daily labs Continue to monitor in the ICU for the next 24 hours Will continue to follow Time with Patient: Less than 30
--- NOTE | 2025-02-27 13:42 | P.PN ---
Subjective Progress Note Date: 02/27/25 Patient is seen for follow-up for acute kidney injury and hyperkalemia. Currently being diuresed. Renal function has improved. No significant complaints today. Patient is awake, comfortable, no acute distress Down syndrome facial features. Examination of the heart S1 and S2 Examination of the lungs shows bilateral breath sounds are heard Abdomen is soft nontender Examination of lower extremity shows no significant edema Objective - Vital Signs Vital signs: Vital Signs Temp 98.9 F 02/27/25 08:00 Pulse 76 02/27/25 10:00 Resp 15 02/27/25 10:00 BP 95/69 02/27/25 10:00 Pulse Ox 90 L 02/27/25 10:00 FiO2 90 02/27/25 08:18 Intake & Output 02/26/25 02/27/25 02/27/25 18:59 06:59 18:59 Intake Total 1900 1440 750 Output Total 2054 1370 710 Balance -155 70 40 Weight 116.8 kg Intake: Oral 1900 1440 750 Output: Urine 2054 1370 710 Other: # Bowel Movements 1 - Labs CBC & Chem 7: 02/27/25 04:53 02/27/25 04:53 Labs: Abnormal Lab Results - Last 24 Hours (Table) 02/27/25 02/27/25 Range/Units 04:53 04:53 Immature Gran # 0.13 H (0.00-0.04) 10*3/uL Sodium 130 L (137-145) mmol/L Chloride 85 L (98-107) mmol/L Carbon Dioxide 38 H (22-30) mmol/L BUN 38 H (9-20) mg/dL Glucose 105 H (74-99) mg/dL Assessment and Plan Assessment: 1. Acute kidney injury, ischemic ATN from hypotension. Blood pressure as low as 87 mmHg for systolic, now improved. Currently nonoliguric with improving renal function back to normal. UA shows small blood no protein. No urine retention. 2. Hyperkalemia associated with acute kidney injury in the setting of use of SHANNON inhibitors and Aldactone, improving 3. Volume overload 4. Acute CHF with preserved ejection fraction 5. Down syndrome Plan: Agree with diuretics changed to PO today Continue to hold SHANNON inhibitors and Aldactone Repeat labs in a.m. Continue Flomax.
[2025-02-27] MEDS: FUROSEMIDE 40 MG TAB PO SCH (15:40)
[2025-02-28] MEDS: ONDANSETRON 4 MG/2 ML VIAL IVP PRN (05:20)
--- NOTE | 2025-02-28 05:49 | XR ---
EXAMINATION TYPE: XR chest 1V portable DATE OF EXAM: 02/28/2025 CLINICAL INDICATION: Male, 49 years old with history of pulmonary edema, airvo, progress study. TECHNIQUE: Single AP portable upright view of the chest is obtained. COMPARISON: Chest x-ray from one day earlier FINDINGS: Persistent cardiomegaly. Persistent chronic parenchymal changes with bibasilar increased o pacities. Osseous structures are intact. Concentric tracheal narrowing is redemonstrated. IMPRESSION: Cardiomegaly with bibasilar acute infiltrates and/or atelectasis. No significant change from one day earlier. [facility], , 02/28/2025 5:47 AM
[2025-02-28 05:55] LABS: Basophils # (A) 0.07 10*3/uL (0.00-0.10); Basophils % (A) 0.8 %; Eosinophils # (A) 0.09 10*3/uL (0.04-0.35); HCT 43.4 % (39.6-50.0); HGB 13.9 g/dL (13.0-17.0); Lymphocytes # (A) 3.06 10*3/uL (0.90-5.00); MCV 93.7 fL (80.0-97.0); Monocytes # (A) 0.67 10*3/uL (0.20-1.00); Monocytes % (A) 7.2 %; Neutrophils # (A) 5.22 10*3/uL (1.80-7.70); Neutrophils % (A) 56.4 %; Platelet Count 251 10*3/uL (140-440); RBC 4.63 10*6/uL (4.40-5.60); RDW 19.8 % (11.5-14.5); WBC 9.26 10*3/uL (4.50-10.00)
[2025-02-28 06:09] LABS: African American GFR (CKD) >90 (>60 ml/min/1.73 sqM); Anion Gap 8 mmol/L; Blood Urea Nitrogen 33 mg/dL (9-20); Calcium 8.4 mg/dL (8.4-10.2); Carbon Dioxide 39 mmol/L (22-30); Chloride 86 mmol/L (98-107); Glucose 91 mg/dL (74-99); Non-African American GFR(CKD) >90 (>60 ml/min/1.73 sqM); Potassium 3.7 mmol/L (3.5-5.1); Sodium 133 mmol/L (137-145)
--- NOTE | 2025-02-28 08:57 | P.PN ---
Subjective Progress Note Date: 02/27/25 Patient is a 49-year-old male with known history of Down syndrome obesity obesity hypoventilation syndrome on oxygen at [facility] of failure came in with hypoxemia patient was on BiPAP no high flow oxygen at this time. BNP is around 600 patient does have some pulm edema on the chest x-ray. Patient echo showed EF of around 60% possible diastolic dysfunction patient serum creatinine at baseline is within normal limits it is elevated to 1.76. Potassium was very high on admission , 7.4 which has come down to 5.9 after aggressive treatment of potassium. Patient is bit hypotensive as well patient was on lisinopril as well as Aldactone as an outpatient which are being held at this time patient is on IV Lasix 40 mg twice a day which is being continued. 02/26/2025 Patient eval today in the intensive care unit. He is lethargic. He continues on Airvo. He remains on IV Lasix. His labs have improved with a BUN of 44 creatinine 1.25 with sodium level 136 today. Chest x-ray does not show improved CHF. His potassium was also down to 5.0. 02/27/2025 Patient is evaluated today in the intensive care unit. Patient is more awake and alert. He continues on the airvo with difficutly weaning. Transitioned to oral lasix. Sodium level is 130, BUN of 38, creatinine 0.96. Unable to complete review of systems PHYSICAL EXAMINATION: GENERAL: The patient is alert initially does not talk much, not in any acute distress. Obese HEENT: Pupils are round and equally reacting to light. EOMI. No scleral icterus. No conjunctival pallor. Normocephalic, atraumatic. No pharyngeal erythema. No thyromegaly. Enlarged tongue,. CARDIOVASCULAR: S1 and S2 present. No murmurs, rubs, or gallops. PULMONARY: Chest is clear to auscultation, no wheezing or crackles. ABDOMEN: Soft, nontender, nondistended, normoactive bowel sounds. No palpable organomegaly. MUSCULOSKELETAL: No joint swelling or deformity. EXTREMITIES: No cyanosis, clubbing, or pedal edema. NEUROLOGICAL: Gross neurological examination did not reveal any focal deficits. SKIN: No rashes. Assessment and plan - Acute hypoxic and possibly probably hypercapnic respiratory failure secondary to some pulmonary edema as well as obesity hypoventilation syndrome and chronic CO2 retention. - Acute renal failure: Probably prerenal azotemia from heart failure - Hyperkalemia secondary to acute renal failure Aldactone and lisinopril all of which are being held - Congestive heart failure preserved ejection fraction, chronic diastolic function with acute exacerbation - Hyperlipidemia - Obesity and obesity hypoventilation syndrome, sleep apnea on CPAP machine at home - Hypertension DVT prophylaxis: Subcutaneous heparin Plan - Continue ICU care - Patient is on high flow nasal cannula oxygen saturating well at this time - Patient was started on Lasix which will be continued close monitoring of the kidney function - Monitor renal function and electrolyes - Continue strict intake and output monitioring - Add miconazole for the crusting on the scalp and around ears The impression and plan of care has been dictated by Deb Ortega, Nurse Practitioner as directed. Dr. Sarah MD I have performed a history and physical examination and medical decision making of this patient, discussed the same with the dictator, and agree with the dictators assessment and plan as written, documented as a scribe. Based on total visit time, I have performed more than 50% of this visit. Objective - Vital Signs Vital signs: Vital Signs Temp 98.2 F 02/28/25 04:00 Pulse 71 02/28/25 07:00 Resp 14 02/28/25 07:00 BP 110/64 02/28/25 07:00 Pulse Ox 83 L 02/28/25 07:00 FiO2 85 02/28/25 04:07 Intake & Output 02/27/25 02/28/25 02/28/25 18:59 06:59 18:59 Intake Total 1600 720 Output Total 1410 845 Balance 190 -125 Weight 111.6 kg Intake: Oral 1600 240 Tube Feeding 480 Output: Urine 1410 815 Emesis 30 Other: Voiding Method Indwelling Catheter - Labs CBC & Chem 7: 02/28/25 05:39 02/28/25 05:39 Labs: Abnormal Lab Results - Last 24 Hours (Table) 02/28/25 02/28/25 Range/Units 05:39 05:39 Immature Gran # 0.15 H (0.00-0.04) 10*3/uL Sodium 133 L (137-145) mmol/L Chloride 86 L (98-107) mmol/L Carbon Dioxide 39 H (22-30) mmol/L BUN 33 H (9-20) mg/dL Assessment and Plan Time with Patient: Less than 30
--- NOTE | 2025-02-28 12:18 | P.PN ---
Subjective Progress Note Date: 02/28/25 Principal diagnosis: Acute on chronic hypoxic and hypercapnic respiratory failure, mostly secondary to acute on chronic diastolic congestive heart failure, morbid obesity, obesity hypoventilation syndrome, and history of trisomy 21 Patient is a 49-year-old male with past medical history significant for Down syndrome, congestive heart failure, obstructive sleep apnea unable to tolerate CPAP, hypertension, hyperlipidemia, gastroesophageal reflux disease and previous episodes of aspiration. Patient was at his ECF, [facility], found in some respiratory distress. SpO2 was reading low in the 70s. Placed back on supplemental oxygen. I am told he chronically wears 3 L/min nasal cannula at bedtime. Did receive a dose of 40 mg IV Lasix at outside facility. Sent in the emergency department late last night on a nonrebreather. Did not tolerate noninvasive CPAP/BiPAP in the ER. He is currently on Airvo with settings 50 L and 90%. SpO2 recorded around 97%. Workup including a chest x-ray showing cardiomegaly, pulmonary vascular congestion, and probable bilateral pleural effusions. He did receive a additional dose of IV Lasix 20 mg. He was also found to be severely hyperkalemic, with a potassium of 7.4 treated with one half amp D50 W, 10 units regular insulin, 1 amp sodium bicarbonate, concentrated albuterol, and 10 g of Lokelma. VBG: pCO2 of 63, pH of 7.33. Remaining labs including a CBC: WBC count 7.5, hemoglobin 14.3, platelets 243. CMP: Sodium 134, potassium 7.4, chloride 94, serum bicarb 34, BUN 60, creatinine 1.85, glucose 229. LFTs unremarkable. Troponin less than 0.012. NT proBNP only 576. EKG, non-bradycardic, poor quality and will have to be repeated. Patient currently being evaluated in the trauma bay 1. He is awake and alert, unable to provide any further information. Apprehensive of care. Denies any pain. No recorded fevers. No coughing. Tachypneic. On Airvo with above-mentioned settings. He does have a chronic indwelling urinary catheter, and there is ample urine in the bag. Current vital signs: Temperature 98.1 F, heart rate 78 bpm, blood pressure 118/54 mmHg, SpO2 recorded at 97% on Airvo. Patient was seen today on 02/26/2025, patient remains in the ICU, remains on Airvo requiring FiO2 of 80% and flow of 60 L/min. His overall pulmonary status is marginal patient looks comfortable, not in any distress. Denies any shortness of breath, remains on diuretics and seems to be clinically improving. Chest x- ray today showed improved pulmonary vascular congestion and scattered infiltrates persist. CBC is relatively normal potassium is back to 5.0 renal profile significantly improved with BUN of 44 creatinine 1.25 Patient was seen today on 02/27/2025, remains in the ICU, on Airvo 90% FiO2 6 0 L flow, about the same, does not seem to be in any distress remains on Lasix 40 mg twice daily chest x-ray is steadily showing improvement in his pulmonary edema. WBC count is 9.3 hemoglobin 14.1 electrolytes are normal bicarb is 38 BUN is 38 creatinine 0.96 Seen today on 02/28/2025, remains in the ICU, remains on Airvo 85% and 60 L flow, patient seems to be doing well, his O2 saturation is up and down in the mid 80s up to the mid 90s, patient is clinically improving, his chest x-ray showed improvement in his pulmonary edema continues to have some bibasilar atelectasis. Patient remains on bronchodilators remains on diuretics, and the plan is to continue titrating his FiO2 down to the point that we could get him transferred out of the ICU to medical floor. WBC count today is 9.2 hemoglobin 13.9 electrolytes are normal bicarb is 39 BUN is 33 creatinine 0.96 Objective - Vital Signs Vital signs: Vital Signs Temp 98.2 F 02/28/25 04:00 Pulse 68 02/28/25 11:53 Resp 25 H 02/28/25 11:00 BP 88/46 02/28/25 11:00 Pulse Ox 96 02/28/25 11:00 FiO2 85 02/28/25 11:53 Intake & Output 02/27/25 02/28/25 02/28/25 18:59 06:59 18:59 Intake Total 1600 720 250 Output Total 1410 845 140 Balance 190 -125 110 Weight 111.6 kg Intake: Oral 1600 240 250 Tube Feeding 480 Output: Urine 1410 815 140 Emesis 30 Other: Voiding Method Indwelling Catheter Indwelling Catheter - Exam GENERAL EXAM: Alert, 49-year-old obese male, clinical features of Down syndrome on Airvo, not in distress HEAD: Brachycephaly, short nasal bridge, low-set ears, and atraumatic EYES: Normal reaction of pupils, equal size. NOSE: Clear with pink turbinates. THROAT: No erythema or exudates. NECK: No masses, no JVD. CHEST: No chest wall deformity. LUNGS: Diminished breath sounds at the bases no crackles rhonchi or wheezes CVS: S1 and S2 normal with no audible murmur, regular rhythm. No extra heart sounds ABDOMEN: No hepatosplenomegaly, active bowel sounds, no guarding or rigidity. SKIN: No rashes. Diffuse seborrheic keratosis CENTRAL NERVOUS SYSTEM: No focal deficits, tone is normal in all 4 extremities. EXTREMITIES: No clubbing, no edema, no cyanosis - Labs CBC & Chem 7: 02/28/25 05:39 02/28/25 05:39 Labs: Abnormal Lab Results - Last 24 Hours (Table) 02/28/25 02/28/25 Range/Units 05:39 05:39 Immature Gran # 0.15 H (0.00-0.04) 10*3/uL Sodium 133 L (137-145) mmol/L Chloride 86 L (98-107) mmol/L Carbon Dioxide 39 H (22-30) mmol/L BUN 33 H (9-20) mg/dL Assessment and Plan Assessment: Impression: Acute on chronic hypoxemic and hypercapnic respiratory failure, currently on Airvo, suspect secondary to an exacerbation of diastolic congestive heart failure and underlying obesity hypoventilation syndrome, History of heart failure with preserved ejection fraction Severe hyperkalemia, resolved Acute kidney injury, creatinine 1.85, resolving History obstructive sleep apnea, unable to tolerate CPAP Morbid obesity, with a BMI of 44.1 kg/m History of hyperlipidemia Hypertension History of trisomy 21 Recommendation: Continue Airvo and titrate FiO2 accordingly Continue diuretics Lasix 40 mg IV push twice daily Continue to monitor daily labs Continue to monitor in the ICU for now until he is off Airvo. Will continue to follow Time with Patient: Less than 30
--- NOTE | 2025-02-28 12:23 | P.PN ---
Subjective Progress Note Date: 02/28/25 Patient is seen for follow-up for acute kidney injury and hyperkalemia. Currently being diuresed. Renal function has improved. Worsening breathing over night on opti-flow. More lethargic this morning. Patient is lethargic, comfortable, no acute distress Down syndrome facial features. Examination of the heart S1 and S2 Examination of the lungs shows bilateral breath sounds are heard Abdomen is soft non-tender Examination of lower extremity shows no significant edema Objective - Vital Signs Vital signs: Vital Signs Temp 98.2 F 02/28/25 04:00 Pulse 71 02/28/25 10:00 Resp 11 L 02/28/25 10:00 BP 98/79 02/28/25 10:00 Pulse Ox 90 L 02/28/25 10:00 FiO2 85 02/28/25 08:04 Intake & Output 02/27/25 02/28/25 02/28/25 18:59 06:59 18:59 Intake Total 1600 720 250 Output Total 1410 845 140 Balance 190 -125 110 Weight 111.6 kg Intake: Oral 1600 240 250 Tube Feeding 480 Output: Urine 1410 815 140 Emesis 30 Other: Voiding Method Indwelling Catheter Indwelling Catheter - Labs CBC & Chem 7: 02/28/25 05:39 02/28/25 05:39 Labs: Abnormal Lab Results - Last 24 Hours (Table) 02/28/25 02/28/25 Range/Units 05:39 05:39 Immature Gran # 0.15 H (0.00-0.04) 10*3/uL Sodium 133 L (137-145) mmol/L Chloride 86 L (98-107) mmol/L Carbon Dioxide 39 H (22-30) mmol/L BUN 33 H (9-20) mg/dL Assessment and Plan Assessment: 1. Acute kidney injury, ischemic ATN from hypotension. Blood pressure as low initially, now improved. Currently non-oliguric with improving renal function back to normal. UA shows small blood no protein. No urine retention. 2. Hyperkalemia associated with acute kidney injury in the setting of use of SHANNON inhibitors and Aldactone, improving 3. Volume overload-improved 4. Acute CHF with preserved ejection fraction 5. Down syndrome Plan: Continue with PO diuretics Continue to hold SHANNON inhibitors and Aldactone as BP still on lower end Repeat labs in a.m. Continue Flomax.
--- NOTE | 2025-02-28 15:27 | P.PN ---
Subjective Progress Note Date: 02/28/25 Patient is a 49-year-old male with known history of Down syndrome obesity obesity hypoventilation syndrome on oxygen at [facility] of failure came in with hypoxemia patient was on BiPAP no high flow oxygen at this time. BNP is around 600 patient does have some pulm edema on the chest x-ray. Patient echo showed EF of around 60% possible diastolic dysfunction patient serum creatinine at baseline is within normal limits it is elevated to 1.76. Potassium was very high on admission , 7.4 which has come down to 5.9 after aggressive treatment of potassium. Patient is bit hypotensive as well patient was on lisinopril as well as Aldactone as an outpatient which are being held at this time patient is on IV Lasix 40 mg twice a day which is being continued. 02/26/2025 Patient eval today in the intensive care unit. He is lethargic. He continues on Airvo. He remains on IV Lasix. His labs have improved with a BUN of 44 creatinine 1.25 with sodium level 136 today. Chest x-ray does not show improved CHF. His potassium was also down to 5.0. 02/27/2025 Patient is evaluated today in the intensive care unit. Patient is more awake and alert. He continues on the airvo with difficutly weaning. Transitioned to oral lasix. Sodium level is 130, BUN of 38, creatinine 0.96. 02/28/2025 Patient is evaluated today in follow up in the ICU. Patient continues on the airvo with settings of 60/85. Oxygen saturations between 88-93%. He did not tolerate the 15L hi flow cannula today; oxygen saturations down to 70%. Continues on oral lasix twice daily. Sodium level better at 133. Patient is more obtunded today and felling asleep easily. Chest xray reveals cadiomegaly with bibasilar acute infiltrates and/or atelectasis. No significant change from one day earlier. Unable to complete review of systems PHYSICAL EXAMINATION: GENERAL: The patient is alert initially does not talk much, not in any acute distress. Obese HEENT: Pupils are round and equally reacting to light. EOMI. No scleral icterus. No conjunctival pallor. Normocephalic, atraumatic. No pharyngeal erythema. No thyromegaly. Enlarged tongue,. CARDIOVASCULAR: S1 and S2 present. No murmurs, rubs, or gallops. PULMONARY: Chest is clear to auscultation, no wheezing or crackles. ABDOMEN: Soft, nontender, nondistended, normoactive bowel sounds. No palpable organomegaly. MUSCULOSKELETAL: No joint swelling or deformity. EXTREMITIES: No cyanosis, clubbing, or pedal edema. NEUROLOGICAL: Gross neurological examination did not reveal any focal deficits. SKIN: No rashes. Assessment and plan - Acute hypoxic and possibly probably hypercapnic respiratory failure secondary to some pulmonary edema as well as obesity hypoventilation syndrome and chronic CO2 retention. - Acute renal failure: Probably prerenal azotemia from heart failure - Hyperkalemia secondary to acute renal failure Aldactone and lisinopril all of which are being held - Congestive heart failure preserved ejection fraction, chronic diastolic function with acute exacerbation - Hyperlipidemia - Obesity and obesity hypoventilation syndrome, sleep apnea on CPAP machine at home - Hypertension - Extensive seborrheic dermatitis DVT prophylaxis: Subcutaneous heparin Plan - Continue ICU care - Patient is on high flow nasal cannula oxygen saturating well at this time - Patient was started on Lasix which will be continued close monitoring of the kidney function - Monitor renal function and electrolyes - Continue strict intake and output monitioring - Add ketoconazole shampoo for the crusting on the scalp and around ears - Add lac-hydrin lotion for the feet and lower legs. The impression and plan of care has been dictated by Deb Ortega, Nurse Practitioner as directed. Dr. Sarah MD I have performed a history and physical examination and medical decision making of this patient, discussed the same with the dictator, and agree with the dictators assessment and plan as written, documented as a scribe. Based on total visit time, I have performed more than 50% of this visit. Objective - Vital Signs Vital signs: Vital Signs Temp 99 F 02/28/25 12:00 Pulse 67 02/28/25 15:00 Resp 18 02/28/25 15:00 BP 105/58 02/28/25 15:00 Pulse Ox 93 L 02/28/25 15:00 FiO2 85 02/28/25 12:00 Intake & Output 02/27/25 02/28/25 02/28/25 18:59 06:59 18:59 Intake Total 1600 720 450 Output Total 1410 845 500 Balance 190 -125 -50 Weight 111.6 kg Intake: Oral 1600 240 450 Tube Feeding 480 Output: Urine 1410 815 500 Emesis 30 Other: Voiding Method Indwelling Catheter Indwelling Catheter - Labs CBC & Chem 7: 02/28/25 05:39 02/28/25 05:39 Labs: Abnormal Lab Results - Last 24 Hours (Table) 02/28/25 02/28/25 Range/Units 05:39 05:39 Immature Gran # 0.15 H (0.00-0.04) 10*3/uL Sodium 133 L (137-145) mmol/L Chloride 86 L (98-107) mmol/L Carbon Dioxide 39 H (22-30) mmol/L BUN 33 H (9-20) mg/dL Assessment and Plan Time with Patient: Less than 30
[2025-02-28] MEDS: KETOCONAZOLE 2% SHAMPOO 1 APPLIC/ML TOPICAL SCH (15:55)
[2025-02-28] MEDS: AMMONIUM LACTATE 12% LOTION 225 GM BTL TOPICAL SCH (16:49)
[2025-02-28] MEDS: MAG HYDROX/AL HYDROX/SIMETH 30 ML CUP PO PRN (17:59)
[2025-03-01 04:57] LABS: Basophils # (A) 0.04 10*3/uL (0.00-0.10); Basophils % (A) 0.5 %; Eosinophils # (A) 0.13 10*3/uL (0.04-0.35); Eosinophils % (A) 1.6 %; HCT 42.1 % (39.6-50.0); Lymphocytes # (A) 2.18 10*3/uL (0.90-5.00); Lymphocytes % (A) 26.3 %; MCHC 30.9 g/dL (32.0-37.0); MCV 97.2 fL (80.0-97.0); Mean Platelet Volume 10.6 fL (9.5-12.2); Monocytes # (A) 0.34 10*3/uL (0.20-1.00); Monocytes % (A) 4.1 %; Neutrophils % (A) 65.2 %; Platelet Count 230 10*3/uL (140-440); RBC 4.33 10*6/uL (4.40-5.60); RDW 19.8 % (11.5-14.5); WBC 8.28 10*3/uL (4.50-10.00)
[2025-03-01 05:49] LABS: African American GFR (CKD) >90 (>60 ml/min/1.73 sqM); Blood Urea Nitrogen 30 mg/dL (9-20); Calcium 8.3 mg/dL (8.4-10.2); Chloride 87 mmol/L (98-107); Glucose 180 mg/dL (74-99); Non-African American GFR(CKD) 84 (>60 ml/min/1.73 sqM); Potassium 3.5 mmol/L (3.5-5.1); Sodium 132 mmol/L (137-145)
[2025-03-01 05:55] LABS: Anion Gap 6 mmol/L; Carbon Dioxide 39 mmol/L (22-30)
[2025-03-01] MEDS ORDERED: Potassium Replacement Protocol 1 EACH MISC MISCELLANE PRN (06:22)
[2025-03-01] MEDS: POTASSIUM BICARBONATE/CIT AC 20 MEQ TABLET.EFF NG-TUBE SCH (06:45)
--- NOTE | 2025-03-01 07:28 | XR ---
EXAMINATION TYPE: XR chest 1V portable DATE OF EXAM: 03/01/2025 5:26 AM COMPARISON: 02/28/2025 CLINICAL INDICATION: Male, 49 years old with history of f/u bibasilar opacities, , FINDINGS: Heart remains mildly enlarged. Mild hyperinflation. Interstitial densities as well as patchy mid and lower lung opacities persist without significant change. Off centered exam limiting assessment. IMPRESSION: Mild cardiomegaly, possible underlying COPD, and ongoing patchy mid and lower lung opacities without significant change. [facility], , 03/01/2025 7:26 AM
--- NOTE | 2025-03-01 09:03 | P.PN ---
Subjective Patient is seen in follow-up for acute kidney injury. GFR near baseline. On oral Lasix. On Airvo. Vital signs are stable. General: Sitting up in bed. No acute distress. HEENT: Unable. LUNGS: Scattered rhonchi. HEART: Rate and Rhythm are regular. ABDOMEN: Nontender. EXTREMITITES: 1+ edema. Objective - Vital Signs Vital signs: Vital Signs Temp 98.6 F 03/01/25 08:00 Pulse 71 03/01/25 08:51 Resp 14 03/01/25 08:00 BP 100/44 03/01/25 08:00 Pulse Ox 91 L 03/01/25 08:51 FiO2 80 03/01/25 08:51 Intake & Output 02/28/25 03/01/25 03/01/25 18:59 06:59 18:59 Intake Total 950 480 240 Output Total 745 550 205 Balance 205 -70 35 Weight 113.6 kg Intake: Oral 950 480 240 Output: Urine 745 550 205 Other: Voiding Method Indwelling Catheter Indwelling Catheter - Labs CBC & Chem 7: 03/01/25 04:41 03/01/25 04:41 Labs: Abnormal Lab Results - Last 24 Hours (Table) 03/01/25 03/01/25 Range/Units 04:41 04:41 RBC 4.33 L (4.40-5.60) 10*6/uL MCV 97.2 H (80.0-97.0) fL MCHC 30.9 L (32.0-37.0) g/dL Immature Gran # 0.19 H (0.00-0.04) 10*3/uL Sodium 132 L (137-145) mmol/L Chloride 87 L (98-107) mmol/L Carbon Dioxide 39 H (22-30) mmol/L BUN 30 H (9-20) mg/dL Glucose 180 H (74-99) mg/dL Calcium 8.3 L (8.4-10.2) mg/dL Assessment and Plan Plan: Assessment: 1. Acute kidney injury secondary to ATN secondary to hypotension. Improved. 2. Hyperkalemia secondary to acute kidney injury. Was also on SHANONN inhibitor and Aldactone outpatient. Improved. 3. Volume overload. Improving with diuresis. 4. Acute on chronic diastolic CHF. 5. Down syndrome. 6. Hypokalemia from diuresis. Replaced. 7. Acute on chronic hypoxic and hypercapnic respiratory failure. Plan: Maintain Lasix. Replace potassium as needed. Wean FiO2. Avoid nephrotoxins. Continue to monitor renal function and urine output.
--- NOTE | 2025-03-01 12:16 | P.PN ---
Subjective Progress Note Date: 03/01/25 Patient is a 49-year-old male with past medical history significant for Down syndrome, congestive heart failure, obstructive sleep apnea unable to tolerate CPAP, hypertension, hyperlipidemia, gastroesophageal reflux disease and previous episodes of aspiration. Patient was at his ECF, [facility], found in some respiratory distress. SpO2 was reading low in the 70s. Placed back on supplemental oxygen. I am told he chronically wears 3 L/min nasal cannula at bedtime. Did receive a dose of 40 mg IV Lasix at outside facility. Sent in the emergency department late last night on a nonrebreather. Did not tolerate noninvasive CPAP/BiPAP in the ER. He is currently on Airvo with settings 50 L and 90%. SpO2 recorded around 97%. Workup including a chest x-ray showing cardiomegaly, pulmonary vascular congestion, and probable bilateral pleural effusions. He did receive a additional dose of IV Lasix 20 mg. He was also found to be severely hyperkalemic, with a potassium of 7.4 treated with one half amp D50 W, 10 units regular insulin, 1 amp sodium bicarbonate, concentrated albuterol, and 10 g of Lokelma. VBG: pCO2 of 63, pH of 7.33. Remaining labs including a CBC: WBC count 7.5, hemoglobin 14.3, platelets 243. CMP: Sodium 134, potassium 7.4, chloride 94, serum bicarb 34, BUN 60, creatinine 1.85, glucose 229. LFTs unremarkable. Troponin less than 0.012. NT proBNP only 576. EKG, non-bradycardic, poor quality and will have to be repeated. Patient currently being evaluated in the trauma bay 1. He is awake and alert, unable to provide any further information. Apprehensive of care. Denies any pain. No recorded fevers. No coughing. Tachypneic. On Airvo with above-mentioned sett ings. He does have a chronic indwelling urinary catheter, and there is ample urine in the bag. Current vital signs: Temperature 98.1 F, heart rate 78 bpm, blood pressure 118/54 mmHg, SpO2 recorded at 97% on Airvo. Patient was seen today on 02/26/2025, patient remains in the ICU, remains on Airvo requiring FiO2 of 80% and flow of 60 L/min. His overall pulmonary status is marginal patient looks comfortable, not in any distress. Denies any shortness of breath, remains on diuretics and seems to be clinically improving. Chest x- ray today showed improved pulmonary vascular congestion and scattered infiltrates persist. CBC is relatively normal potassium is back to 5.0 renal profile significantly improved with BUN of 44 creatinine 1.25 Patient was seen today on 02/27/2025, remains in the ICU, on Airvo 90% FiO2 6 0 L flow, about the same, does not seem to be in any distress remains on Lasix 40 mg twice daily chest x-ray is steadily showing improvement in his pulmonary edema. WBC count is 9.3 hemoglobin 14.1 electrolytes are normal bicarb is 38 BUN is 38 creatinine 0.96 Seen today on 02/28/2025, remains in the ICU, remains on Airvo 85% and 60 L flow, patient seems to be doing well, his O2 saturation is up and down in the mid 80s up to the mid 90s, patient is clinically improving, his chest x-ray showed improvement in his pulmonary edema continues to have some bibasilar atelectasis. Patient remains on bronchodilators remains on diuretics, and the plan is to continue titrating his FiO2 down to the point that we could get him transferred out of the ICU to medical floor. WBC count today is 9.2 hemoglobin 13.9 electrolytes are normal bicarb is 39 BUN is 33 creatinine 0.96. The patient is seen today March 01, 2025 in follow-up in the intensive care unit. He is currently sitting up in bed. Awake and alert in no acute distress. He is still requiring Airvo high flow oxygen at 60 L and 80% FiO2. Chest x-ray continues to show mild cardiomegaly, possible underlying COPD, ongoing patchy mid and lower lung opacities without significant change. White count 8.2. Hemoglobin 13.0. Platelets 230. Sodium 132. Potassium 3.5. Bicarb 39. BUN 30. Creatinine 1.03. Glucose 180. He remains on. Remains on Lasix 40 mg twice daily. Heparin for DVT prophylaxis. Currently in a +135 mL balance. Objective - Vital Signs Vital signs: Vital Signs Temp 98.6 F 03/01/25 08:00 Pulse 68 03/01/25 10:00 Resp 18 03/01/25 10:00 BP 91/39 03/01/25 10:00 Pulse Ox 86 L 03/01/25 10:00 FiO2 80 03/01/25 09:00 Intake & Output 02/28/25 03/01/25 03/01/25 18:59 06:59 18:59 Intake Total 950 480 360 Output Total 745 550 405 Balance 205 -70 -45 Weight 113.6 kg Intake: Oral 950 480 360 Output: Urine 745 550 405 Other: Voiding Method Indwelling Catheter Indwelling Catheter Indwelling Catheter - Exam GENERAL EXAM: Alert, pleasant 49-year-old male, on Airvo high flow oxygen at 60 L and 80% FiO2, fair comfortable in no apparent distress. HEAD: Normocephalic. Clinical features of Down's syndrome. EYES: Normal reaction of pupils, equal size. NOSE: Clear with pink turbinates. THROAT: No erythema or exudates. NECK: No masses, no JVD. CHEST: No chest wall deformity. LUNGS: Equal air entry with few scattered rhonchi, crackles in the bilateral bases. CVS: S1 and S2 normal with no audible murmur, regular rhythm. ABDOMEN: No hepatosplenomegaly, normal bowel sounds, no guarding or rigidity. SPINE: No scoliosis or deformity SKIN: No rashes. Diffuse seborrheic keratosis. CENTRAL NERVOUS SYSTEM: No focal deficits, tone is normal in all 4 extremities. EXTREMITIES: There is no peripheral edema. No clubbing, no cyanosis. Per ipheral pulses are intact. - Labs CBC & Chem 7: 03/01/25 04:41 03/01/25 04:41 Labs: Abnormal Lab Results - Last 24 Hours (Table) 03/01/25 03/01/25 Range/Units 04:41 04:41 RBC 4.33 L (4.40-5.60) 10*6/uL MCV 97.2 H (80.0-97.0) fL MCHC 30.9 L (32.0-37.0) g/dL Immature Gran # 0.19 H (0.00-0.04) 10*3/uL Sodium 132 L (137-145) mmol/L Chloride 87 L (98-107) mmol/L Carbon Dioxide 39 H (22-30) mmol/L BUN 30 H (9-20) mg/dL Glucose 180 H (74-99) mg/dL Calcium 8.3 L (8.4-10.2) mg/dL Assessment and Plan Assessment: Acute on chronic hypoxemic and hypercapnic respiratory failure, currently on Airvo, suspect secondary to an exacerbation of diastolic congestive heart failure and underlying obesity hypoventilation syndrome, History of heart failure with preserved ejection fraction Severe hyperkalemia, resolved Acute kidney injury, creatinine 1.85, resolving History obstructive sleep apnea, unable to tolerate CPAP Morbid obesity, with a BMI of 44.1 kg/m History of hyperlipidemia Hypertension History of trisomy 21 Plan: The patient was seen and evaluated Chest x-ray, labs and medications reviewed Continued on Airvo high flow oxygen Current settings of 60 L and 80% FiO2 Continue to titrate down the FiO2 as tolerated Accepting of saturations greater than 85% Transitioned to oral diuretics Continue to monitor urine output Continue bronchodilators Heparin for DVT prophylaxis We will continue to follow I have personally seen and examined the patient, performed the documentation and the assessment and plan as written. Number of minutes spent on the visit: 15 Dictation was produced using Jare[employer] dictation software. Please excuse any grammatical, word or spelling errors.
[2025-03-01] MEDS: NYSTATIN 100,000 UNIT/GM OINT 30 GM TUBE TOPICAL SCH (15:40)
[2025-03-02] MEDS: PANTOPRAZOLE 40 MG TABLET PO SCH (05:12)
[2025-03-02 06:20] LABS: Basophils # (A) 0.07 10*3/uL (0.00-0.10); Basophils % (A) 0.8 %; Eosinophils # (A) 0.14 10*3/uL (0.04-0.35); Eosinophils % (A) 1.7 %; HCT 43.7 % (39.6-50.0); HGB 13.1 g/dL (13.0-17.0); Lymphocytes # (A) 2.39 10*3/uL (0.90-5.00); Lymphocytes % (A) 28.6 %; MCH 29.8 pg (27.0-32.0); MCV 99.3 fL (80.0-97.0); Mean Platelet Volume 10.5 fL (9.5-12.2); Monocytes # (A) 0.57 10*3/uL (0.20-1.00); Monocytes % (A) 6.8 %; Neutrophils # (A) 4.94 10*3/uL (1.80-7.70); Platelet Count 237 10*3/uL (140-440); RDW 19.9 % (11.5-14.5); WBC 8.37 10*3/uL (4.50-10.00)
[2025-03-02 06:36] LABS: African American GFR (CKD) >90 (>60 ml/min/1.73 sqM); Blood Urea Nitrogen 25 mg/dL (9-20); Calcium 8.7 mg/dL (8.4-10.2); Chloride 85 mmol/L (98-107); Glucose 144 mg/dL (74-99); Non-African American GFR(CKD) 87 (>60 ml/min/1.73 sqM); Potassium 4.1 mmol/L (3.5-5.1); Sodium 133 mmol/L (137-145)
[2025-03-02 06:43] LABS: Anion Gap 5 mmol/L
[2025-03-02 06:46] LABS: Carbon Dioxide 43 mmol/L (22-30)
--- NOTE | 2025-03-02 07:39 | XR ---
EXAMINATION TYPE: XR chest 1V portable DATE OF EXAM: 03/02/2025 5:22 AM COMPARISON: 03/01/2025 CLINICAL INDICATION: Male, 49 years old with history of CHF exac., , FINDINGS: Heart mildly enlarged. Hyperinflation. Perihilar and interstitial opacities remain. The more extensiv e patchy mid and lower lung opacities shows improvement. No sizable pleural effusion on the frontal v iew. IMPRESSION: COPD with some improving CHF but with residual interstitial pulmonary edema. [facility], Workstation: [id number], 03/02/2025 7:36 AM
[2025-03-02] MEDS: CALCIUM CARBONATE 500 MG CHEWABLE PO PRN (08:58)
--- NOTE | 2025-03-02 09:37 | P.PN ---
Subjective Patient is seen in follow-up for acute kidney injury. GFR near baseline. On oral Lasix. On Airvo. Vital signs are stable. General: Sitting up in bed. No acute distress. HEENT: Unable. LUNGS: Scattered rhonchi. HEART: Rate and Rhythm are regular. ABDOMEN: Nontender. EXTREMITITES: 1+ edema. Objective - Vital Signs Vital signs: Vital Signs Temp 98.8 F 03/02/25 08:00 Pulse 65 03/02/25 09:00 Resp 22 03/02/25 09:00 BP 97/60 03/02/25 09:00 Pulse Ox 95 03/02/25 09:00 FiO2 70 03/02/25 09:00 Intake & Output 03/01/25 03/02/25 03/02/25 18:59 06:59 18:59 Intake Total 840 480 Output Total 1465 655 230 Balance -062 -107 -605 Weight 113.4 kg Intake: Oral 840 480 Output: Urine 1465 655 230 Other: Voiding Method Indwelling Catheter Indwelling Catheter Indwelling Catheter - Labs CBC & Chem 7: 03/02/25 05:34 03/02/25 05:34 Labs: Abnormal Lab Results - Last 24 Hours (Table) 03/02/25 03/02/25 Range/Units 05:34 05:34 MCV 99.3 H (80.0-97.0) fL MCHC 30.0 L (32.0-37.0) g/dL Immature Gran # 0.26 H (0.00-0.04) 10*3/uL Sodium 133 L (137-145) mmol/L Chloride 85 L (98-107) mmol/L Carbon Dioxide 43 H* (22-30) mmol/L BUN 25 H (9-20) mg/dL Glucose 144 H (74-99) mg/dL Assessment and Plan Plan: Assessment: 1. Acute kidney injury secondary to ATN secondary to hypotension. Improved. 2. Hyperkalemia secondary to acute kidney injury. Was also on SHANNON inhibitor and Aldactone outpatient. Improved. 3. Volume overload. Improving with diuresis. 4. Acute on chronic diastolic CHF. 5. Down syndrome. 6. Hypokalemia from diuresis. Replaced. Better. 7. Acute on chronic hypoxic and hypercapnic respiratory failure. 8. Metabolic alkalosis from diuresis/volume contraction. Plan: Maintain Lasix. Add Diamox. Replace potassium as needed. Wean FiO2. Avoid nephrotoxins. Continue to monitor renal function and urine output.
[2025-03-02] MEDS: ACETAMINOPHEN TAB 325 MG TAB PO PRN (09:42)
[2025-03-02] MEDS: LACTULOSE 20 GM/30 ML CUP PO ONE (09:42)
[2025-03-02] MEDS: acetaZOLAMIDE 250 MG TAB PO SCH (09:58)
--- NOTE | 2025-03-02 11:22 | P.PN ---
Subjective Progress Note Date: 03/02/25 Patient is a 49-year-old male with past medical history significant for Down syndrome, congestive heart failure, obstructive sleep apnea unable to tolerate CPAP, hypertension, hyperlipidemia, gastroesophageal reflux disease and previous episodes of aspiration. Patient was at his ECF, [facility], found in some respiratory distress. SpO2 was reading low in the 70s. Placed back on supplemental oxygen. I am told he chronically wears 3 L/min nasal cannula at bedtime. Did receive a dose of 40 mg IV Lasix at outside facility. Sent in the emergency department late last night on a nonrebreather. Did not tolerate noninvasive CPAP/BiPAP in the ER. He is currently on Airvo with settings 50 L and 90%. SpO2 recorded around 97%. Workup including a chest x-ray showing cardiomegaly, pulmonary vascular congestion, and probable bilateral pleural effusions. He did receive a additional dose of IV Lasix 20 mg. He was also found to be severely hyperkalemic, with a potassium of 7.4 treated with one half amp D50 W, 10 units regular insulin, 1 amp sodium bicarbonate, concentrated albuterol, and 10 g of Lokelma. VBG: pCO2 of 63, pH of 7.33. Remaining labs including a CBC: WBC count 7.5, hemoglobin 14.3, platelets 243. CMP: Sodium 134, potassium 7.4, chloride 94, serum bicarb 34, BUN 60, creatinine 1.85, glucose 229. LFTs unremarkable. Troponin less than 0.012. NT proBNP only 576. EKG, non-bradycardic, poor quality and will have to be repeated. Patient currently being evaluated in the trauma bay 1. He is awake and alert, unable to provide any further information. Apprehensive of care. Denies any pain. No recorded fevers. No coughing. Tachypneic. On Airvo with above-mentioned sett ings. He does have a chronic indwelling urinary catheter, and there is ample urine in the bag. Current vital signs: Temperature 98.1 F, heart rate 78 bpm, blood pressure 118/54 mmHg, SpO2 recorded at 97% on Airvo. Patient was seen today on 02/26/2025, patient remains in the ICU, remains on Airvo requiring FiO2 of 80% and flow of 60 L/min. His overall pulmonary status is marginal patient looks comfortable, not in any distress. Denies any shortness of breath, remains on diuretics and seems to be clinically improving. Chest x- ray today showed improved pulmonary vascular congestion and scattered infiltrates persist. CBC is relatively normal potassium is back to 5.0 renal profile significantly improved with BUN of 44 creatinine 1.25 Patient was seen today on 02/27/2025, remains in the ICU, on Airvo 90% FiO2 6 0 L flow, about the same, does not seem to be in any distress remains on Lasix 40 mg twice daily chest x-ray is steadily showing improvement in his pulmonary edema. WBC count is 9.3 hemoglobin 14.1 electrolytes are normal bicarb is 38 BUN is 38 creatinine 0.96 Seen today on 02/28/2025, remains in the ICU, remains on Airvo 85% and 60 L flow, patient seems to be doing well, his O2 saturation is up and down in the mid 80s up to the mid 90s, patient is clinically improving, his chest x-ray showed improvement in his pulmonary edema continues to have some bibasilar atelectasis. Patient remains on bronchodilators remains on diuretics, and the plan is to continue titrating his FiO2 down to the point that we could get him transferred out of the ICU to medical floor. WBC count today is 9.2 hemoglobin 13.9 electrolytes are normal bicarb is 39 BUN is 33 creatinine 0.96. The patient is seen today March 01, 2025 in follow-up in the intensive care unit. He is currently sitting up in bed. Awake and alert in no acute distress. He is still requiring Airvo high flow oxygen at 60 L and 80% FiO2. Chest x-ray continues to show mild cardiomegaly, possible underlying COPD, ongoing patchy mid and lower lung opacities without significant change. White count 8.2. Hemoglobin 13.0. Platelets 230. Sodium 132. Potassium 3.5. Bicarb 39. BUN 30. Creatinine 1.03. Glucose 180. He remains on. Remains on Lasix 40 mg twice daily. Heparin for DVT prophylaxis. Currently in a +135 mL balance. The patient is seen today March 02, 2025 in follow-up in the intensive care unit. He is awake and alert in no acute distress. Sitting up in bed. He is on Airvo high flow oxygen at 60 L and 70% FiO2. Gradually being weaned down. No worsening shortness of breath, cough or congestion. He has been afebrile. Hemodynamically stable. Chest x-rays shows evidence of COPD with improvement in the congestive heart failure with less interstitial pulmonary edema. White count 8.3. Hemoglobin 13.1. Platelets 237. Sodium 133. Potassium 4.1. Bicarb 43. BUN 25. Creatinine 1.0. Glucose 144. He remains on oral Lasix and Diamox. Heparin for DVT prophylaxis. Continued on bronchodilators. Objective - Vital Signs Vital signs: Vital Signs Temp 98.8 F 03/02/25 08:00 Pulse 66 03/02/25 11:00 Resp 20 03/02/25 11:00 BP 102/51 03/02/25 11:00 Pulse Ox 95 03/02/25 11:00 FiO2 70 03/02/25 11:00 Intake & Output 03/01/25 03/02/25 03/02/25 18:59 06:59 18:59 Intake Total 840 480 240 Output Total 1465 655 680 Balance -332 -043 -877 Weight 113.4 kg Intake: Oral 840 480 240 Output: Urine 1465 655 680 Other: Voiding Method Indwelling Catheter Indwelling Catheter Indwelling Catheter - Exam GENERAL EXAM: Alert, pleasant 49-year-old male, on Airvo high flow oxygen at 60 L and 70% FiO2, fair comfortable in no apparent distress. HEAD: Normocephalic. Clinical features of Down's syndrome. EYES: Normal reaction of pupils, equal size. NOSE: Clear with pink turbinates. THROAT: No erythema or exudates. NECK: No masses, no JVD. CHEST: No chest wall deformity. LUNGS: Equal air entry with few scattered rhonchi, crackles in the bilateral bases. CVS: S1 and S2 normal with no audible murmur, regular rhythm. ABDOMEN: No hepatosplenomegaly, normal bowel sounds, no guarding or rigidity. SPINE: No scoliosis or deformity SKIN: No rashes. Diffuse seborrheic keratosis. CENTRAL NERVOUS SYSTEM: No focal deficits, tone is normal in all 4 extremities. EXTREMITIES: There is no peripheral edema. No clubbing, no cyanosis. Periph eral pulses are intact. - Labs CBC & Chem 7: 03/02/25 05:34 03/02/25 05:34 Labs: Abnormal Lab Results - Last 24 Hours (Table) 03/02/25 03/02/25 Range/Units 05:34 05:34 MCV 99.3 H (80.0-97.0) fL MCHC 30.0 L (32.0-37.0) g/dL Immature Gran # 0.26 H (0.00-0.04) 10*3/uL Sodium 133 L (137-145) mmol/L Chloride 85 L (98-107) mmol/L Carbon Dioxide 43 H* (22-30) mmol/L BUN 25 H (9-20) mg/dL Glucose 144 H (74-99) mg/dL Assessment and Plan Assessment: Acute on chronic hypoxemic and hypercapnic respiratory failure, currently on Airvo, suspect secondary to an exacerbation of diastolic congestive heart failure and underlying obesity hypoventilation syndrome History of heart failure with preserved ejection fraction Severe hyperkalemia, resolved Acute kidney injury, creatinine 1.85, resolving History obstructive sleep apnea, unable to tolerate CPAP Morbid obesity, with a BMI of 44.1 kg/m History of hyperlipidemia Hypertension History of trisomy 21 Plan: The patient was seen and evaluated Chest x-ray, labs and medications reviewed Continued on Airvo high flow oxygen Current settings of 60 L and 70% FiO2 Continue to titrate down the FiO2 as tolerated Accepting of saturations greater than 85% Transitioned to oral Lasix and Diamox Continue to monitor urine output Continue bronchodilators Heparin for DVT prophylaxis Increase his activity as tolerated Titrate down the FiO2 as tolerated We will continue to follow I have personally seen and examined the patient, performed the documentation and the assessment and plan as written. Number of minutes spent on the visit: 10 Dictation was produced using [employer] dictation software. Please excuse any grammatical, word or spelling errors.
[2025-03-02] MEDS: HYDROcodone/APAP 5-325MG 1 EACH TAB PO PRN (15:12)
[2025-03-02] MEDS: polyethylene glycoL 3350 17 GM POWD.PACK PO SCH (16:10)
[2025-03-02] MEDS: DOCUSATE 100 MG CAP PO SCH (20:48)
--- NOTE | 2025-03-03 05:50 | P.PN ---
Subjective Progress Note Date: 03/02/25 Patient is a 49-year-old male with known history of Down syndrome obesity obesity hypoventilation syndrome on oxygen at [facility] of failure came in with hypoxemia patient was on BiPAP no high flow oxygen at this time. BNP is around 600 patient does have some pulm edema on the chest x-ray. Patient echo showed EF of around 60% possible diastolic dysfunction patient serum creatinine at baseline is within normal limits it is elevated to 1.76. Potassium was very high on admission , 7.4 which has come down to 5.9 after aggressive treatment of potassium. Patient is bit hypotensive as well patient was on lisinopril as well as Aldactone as an outpatient which are being held at this time patient is on IV Lasix 40 mg twice a day which is being continued. 02/26/2025 Patient eval today in the intensive care unit. He is lethargic. He continues on Airvo. He remains on IV Lasix. His labs have improved with a BUN of 44 creatinine 1.25 with sodium level 136 today. Chest x-ray does not show improved CHF. His potassium was also down to 5.0. 02/27/2025 Patient is evaluated today in the intensive care unit. Patient is more awake and alert. He continues on the airvo with difficutly weaning. Transitioned to oral lasix. Sodium level is 130, BUN of 38, creatinine 0.96. 02/28/2025 Patient is evaluated today in follow up in the ICU. Patient continues on the airvo with settings of 60/85. Oxygen saturations between 88-93%. He did not tolerate the 15L hi flow cannula today; oxygen saturations down to 70%. Continues on oral lasix twice daily. Sodium level better at 133. Patient is more obtunded today and felling asleep easily. Chest xray reveals cadiomegaly with bibasilar acute infiltrates and/or atelectasis. No significant change from one day earlier. 03/01/2025 Patient is evaluated today in the ICU. He continues to be more awake and alert. Chest xray reveals mild cardiomegaly, possible underlying COPD, and ongoing patchy mid and lower lung opacities without significant change. WBC 8.28, sodium 132, BUN 30, creatinine 1.03. Remains on airvo 60/70. Unable to complete review of systems PHYSICAL EXAMINATION: GENERAL: The patient is alert initially does not talk much, not in any acute distress. Obese HEENT: Pupils are round and equally reacting to light. EOMI. No scleral icterus. No conjunctival pallor. Normocephalic, atraumatic. No pharyngeal erythema. No thyromegaly. Enlarged tongue,. CARDIOVASCULAR: S1 and S2 present. No murmurs, rubs, or gallops. PULMONARY: Chest is clear to auscultation, no wheezing or crackles. ABDOMEN: Soft, nontender, nondistended, normoactive bowel sounds. No palpable organomegaly. MUSCULOSKELETAL: No joint swelling or deformity. EXTREMITIES: No cyanosis, clubbing, or pedal edema. NEUROLOGICAL: Gross neurological examination did not reveal any focal deficits. SKIN: No rashes. Assessment and plan - Acute hypoxic and possibly probably hypercapnic respiratory failure secondary to some pulmonary edema as well as obesity hypoventilation syndrome and chronic CO2 retention. - Acute renal failure: Probably prerenal azotemia from heart failure - Hyperkalemia secondary to acute renal failure Aldactone and lisinopril all of which are being held - Congestive heart failure preserved ejection fraction, chronic diastolic function with acute exacerbation - Hyperlipidemia - Obesity and obesity hypoventilation syndrome, sleep apnea on CPAP machine at home - Hypertension - Extensive seborrheic dermatitis - Left chest wall pain likely musculoskeletal DVT prophylaxis: Subcutaneous heparin Plan - Continue ICU care - Patient is on high flow nasal cannula oxygen saturating well at this time - Patient was started on Lasix which will be continued close monitoring of the kidney function - Monitor renal function and electrolyes - Continue strict intake and output monitioring - Add ketoconazole shampoo for the crusting on the scalp and around ears - Add lac-hydrin lotion for the feet and lower legs. The impression and plan of care has been dictated by Deb Ortega, Nurse Practitioner as directed. Dr. Sarah MD I have performed a history and physical examination and medical decision making of this patient, discussed the same with the dictator, and agree with the dictators assessment and plan as written, documented as a scribe. Based on total visit time, I have performed more than 50% of this visit. Objective - Vital Signs Vital signs: Vital Signs Temp 98.6 F 03/01/25 08:00 Pulse 72 03/01/25 09:03 Resp 14 03/01/25 08:00 BP 100/44 03/01/25 08:00 Pulse Ox 91 L 03/01/25 08:51 FiO2 80 03/01/25 08:51 Intake & Output 02/28/25 03/01/25 03/01/25 18:59 06:59 18:59 Intake Total 950 480 240 Output Total 745 550 205 Balance 205 -70 35 Weight 113.6 kg Intake: Oral 950 480 240 Output: Urine 745 550 205 Other: Voiding Method Indwelling Catheter Indwelling Catheter - Labs CBC & Chem 7: 03/02/25 05:34 03/02/25 05:34 Labs: Abnormal Lab Results - Last 24 Hours (Table) 03/01/25 03/01/25 Range/Units 04:41 04:41 RBC 4.33 L (4.40-5.60) 10*6/uL MCV 97.2 H (80.0-97.0) fL MCHC 30.9 L (32.0-37.0) g/dL Immature Gran # 0.19 H (0.00-0.04) 10*3/uL Sodium 132 L (137-145) mmol/L Chloride 87 L (98-107) mmol/L Carbon Dioxide 39 H (22-30) mmol/L BUN 30 H (9-20) mg/dL Glucose 180 H (74-99) mg/dL Calcium 8.3 L (8.4-10.2) mg/dL Assessment and Plan Time with Patient: Less than 30
--- NOTE | 2025-03-03 05:51 | P.PN ---
Subjective Progress Note Date: 03/02/25 Patient is a 49-year-old male with known history of Down syndrome obesity obesity hypoventilation syndrome on oxygen at [facility] of failure came in with hypoxemia patient was on BiPAP no high flow oxygen at this time. BNP is around 600 patient does have some pulm edema on the chest x-ray. Patient echo showed EF of around 60% possible diastolic dysfunction patient serum creatinine at baseline is within normal limits it is elevated to 1.76. Potassium was very high on admission , 7.4 which has come down to 5.9 after aggressive treatment of potassium. Patient is bit hypotensive as well patient was on lisinopril as well as Aldactone as an outpatient which are being held at this time patient is on IV Lasix 40 mg twice a day which is being continued. 02/26/2025 Patient eval today in the intensive care unit. He is lethargic. He continues on Airvo. He remains on IV Lasix. His labs have improved with a BUN of 44 creatinine 1.25 with sodium level 136 today. Chest x-ray does not show improved CHF. His potassium was also down to 5.0. 02/27/2025 Patient is evaluated today in the intensive care unit. Patient is more awake and alert. He continues on the airvo with difficutly weaning. Transitioned to oral lasix. Sodium level is 130, BUN of 38, creatinine 0.96. 02/28/2025 Patient is evaluated today in follow up in the ICU. Patient continues on the airvo with settings of 60/85. Oxygen saturations between 88-93%. He did not tolerate the 15L hi flow cannula today; oxygen saturations down to 70%. Continues on oral lasix twice daily. Sodium level better at 133. Patient is more obtunded today and felling asleep easily. Chest xray reveals cadiomegaly with bibasilar acute infiltrates and/or atelectasis. No significant change from one day earlier. 03/01/2025 Patient is evaluated today in the ICU. He continues to be more awake and alert. Chest xray reveals mild cardiomegaly, possible underlying COPD, and ongoing patchy mid and lower lung opacities without significant change. WBC 8.28, sodium 132, BUN 30, creatinine 1.03. Remains on airvo 60/70. 03/02/2025 Patient remains in the ICU. Continues on airvo with settings of 60/60. He has been more awake and alert. Saturations are slightly better at 93%. Chest xray reveals COPD with some improving CHF but with residual interstitial pulmonary edema. He has been pointing to his left chest wall with complaints of pain, although the pain is worse with palpitation likely musculoskeletal. CBC is essentially unremarkable, sodium level 133, potassium 4.1, BUN 25, creatinine 1.00. Unable to complete review of systems PHYSICAL EXAMINATION: GENERAL: The patient is alert initially does not talk much, not in any acute distress. Obese HEENT: Pupils are round and equally reacting to light. EOMI. No scleral icterus. No conjunctival pallor. Normocephalic, atraumatic. No pharyngeal erythema. No thyromegaly. Enlarged tongue,. CARDIOVASCULAR: S1 and S2 present. No murmurs, rubs, or gallops. PULMONARY: Chest is clear to auscultation, no wheezing or crackles. ABDOMEN: Soft, nontender, nondistended, normoactive bowel sounds. No palpable organomegaly. MUSCULOSKELETAL: No joint swelling or deformity. EXTREMITIES: No cyanosis, clubbing, or pedal edema. NEUROLOGICAL: Gross neurological examination did not reveal any focal deficits. SKIN: No rashes. Assessment and plan - Acute hypoxic and possibly probably hypercapnic respiratory failure secondary to some pulmonary edema as well as obesity hypoventilation syndrome and chronic CO2 retention. - Acute renal failure: Probably prerenal azotemia from heart failure - Hyperkalemia secondary to acute renal failure Aldactone and lisinopril all of which are being held - Congestive heart failure preserved ejection fraction, chronic diastolic function with acute exacerbation - Hyperlipidemia - Obesity and obesity hypoventilation syndrome, sleep apnea on CPAP machine at home - Hypertension - Extensive seborrheic dermatitis DVT prophylaxis: Subcutaneous heparin Plan - Continue ICU care - Patient is on high flow nasal cannula oxygen saturating well at this time - Patient was started on Lasix which will be continued close monitoring of the kidney function - Monitor renal function and electrolyes - Continue strict intake and output monitioring - Add ketoconazole shampoo for the crusting on the scalp and around ears - Add lac-hydrin lotion for the feet and lower legs. - Check EKG, D-Dimer and troponin level - Monitor electrolyes and renal function The impression and plan of care has been dictated by Deb Ortega, Nurse Practitioner as directed. Dr. Sarah MD I have performed a history and physical examination and medical decision making of this patient, discussed the same with the dictator, and agree with the dictators assessment and plan as written, documented as a scribe. Based on total visit time, I have performed more than 50% of this visit. Objective - Vital Signs Vital signs: Vital Signs Temp 97.5 F L 03/03/25 04:00 Pulse 64 03/03/25 05:00 Resp 15 03/03/25 05:00 BP 84/39 03/03/25 05:00 Pulse Ox 91 L 03/03/25 05:18 FiO2 60 03/03/25 05:18 Intake & Output 03/02/25 03/02/25 03/03/25 06:59 18:59 06:59 Intake Total 480 1476 Output Total 655 1605 680 Balance -175 -129 -680 Weight 113.4 kg 113.4 kg Intake: Oral 480 1476 Output: Urine 655 1605 680 Other: Voiding Method Indwelling Catheter Indwelling Catheter Indwelling Catheter - Labs CBC & Chem 7: 03/02/25 05:34 03/02/25 05:34 Labs: Abnormal Lab Results - Last 24 Hours (Table) 03/02/25 03/02/25 03/02/25 Range/Units 05:34 05:34 13:09 MCV 99.3 H (80.0-97.0) fL MCHC 30.0 L (32.0-37.0) g/dL Immature Gran # 0.26 H (0.00-0.04) 10*3/uL D-Dimer 1.48 H (<0.60) mg/L FEU Sodium 133 L (137-145) mmol/L Chloride 85 L (98-107) mmol/L Carbon Dioxide 43 H* (22-30) mmol/L BUN 25 H (9-20) mg/dL Glucose 144 H (74-99) mg/dL Assessment and Plan Time with Patient: Less than 30
[2025-03-03 06:33] LABS: Basophils # (A) 0.06 10*3/uL (0.00-0.10); Basophils % (A) 0.8 %; Eosinophils # (A) 0.17 10*3/uL (0.04-0.35); Eosinophils % (A) 2.2 %; HCT 42.9 % (39.6-50.0); HGB 12.8 g/dL (13.0-17.0); Lymphocytes # (A) 1.99 10*3/uL (0.90-5.00); Lymphocytes % (A) 26.1 %; MCH 29.5 pg (27.0-32.0); MCHC 29.8 g/dL (32.0-37.0); MCV 98.8 fL (80.0-97.0); Mean Platelet Volume 11.2 fL (9.5-12.2); Monocytes # (A) 0.71 10*3/uL (0.20-1.00); Monocytes % (A) 9.3 %; Neutrophils # (A) 4.46 10*3/uL (1.80-7.70); Neutrophils % (A) 58.6 %; Platelet Count 234 10*3/uL (140-440); RBC 4.34 10*6/uL (4.40-5.60); RDW 19.9 % (11.5-14.5); WBC 7.62 10*3/uL (4.50-10.00)
--- NOTE | 2025-03-03 06:45 | XR ---
EXAMINATION TYPE: XR chest 1V portable DATE OF EXAM: 03/03/2025 CLINICAL INDICATION: Male, 49 years old with history of f/u pulmonary edema, progress study. TECHNIQUE: Single AP portable upright view of the chest is obtained. COMPARISON: Chest x-ray from one day earlier and older studies. FINDINGS: Persistent cardiomegaly. Persistent chronic parenchymal changes with bilateral central and lower lung increased opacities. Osseous structures are intact. IMPRESSION: Suspect continued CHF exacerbation/fluid overload state. Bibasilar acute infiltrates not excluded. [facility], , 03/03/2025 6:43 AM
[2025-03-03 06:49] LABS: African American GFR (CKD) 81 (>60 ml/min/1.73 sqM); Anion Gap 7 mmol/L; Blood Urea Nitrogen 18 mg/dL (9-20); Calcium 8.8 mg/dL (8.4-10.2); Chloride 87 mmol/L (98-107); Glucose 109 mg/dL (74-99); Non-African American GFR(CKD) 70 (>60 ml/min/1.73 sqM); Potassium 3.8 mmol/L (3.5-5.1); Sodium 134 mmol/L (137-145)
[2025-03-03 07:33] LABS: Carbon Dioxide 40 mmol/L (22-30)
[2025-03-03] MEDS: POTASSIUM CHLORIDE ER 20 MEQ TAB.ER PO SCH (09:14)
--- NOTE | 2025-03-03 09:20 | P.PN ---
Subjective Patient is seen in follow-up for acute kidney injury. GFR near baseline. On oral Lasix. Also on Diamox. Bicarb better. On Airvo. Vital signs are stable. General: Sitting up in bed. No acute distress. HEENT: Unable. LUNGS: Scattered rhonchi. HEART: Rate and Rhythm are regular. ABDOMEN: Nontender. EXTREMITITES: 1+ edema. Objective - Vital Signs Vital signs: Vital Signs Temp 97.5 F L 03/03/25 04:00 Pulse 60 03/03/25 08:58 Resp 14 03/03/25 07:00 BP 95/75 03/03/25 07:00 Pulse Ox 92 L 03/03/25 08:49 FiO2 60 03/03/25 08:49 Intake & Output 03/02/25 03/03/25 03/03/25 18:59 06:59 18:59 Intake Total 1476 Output Total 1605 810 Balance -129 -810 Weight 113.4 kg Intake: Oral 1476 Output: Urine 1605 810 Other: Voiding Method Indwelling Catheter Indwelling Catheter - Labs CBC & Chem 7: 03/03/25 06:00 03/03/25 06:00 Labs: Abnormal Lab Results - Last 24 Hours (Table) 03/02/25 03/03/25 03/03/25 Range/Units 13:09 06:00 06:00 RBC 4.34 L (4.40-5.60) 10*6/uL Hgb 12.8 L (13.0-17.0) g/dL MCV 98.8 H (80.0-97.0) fL MCHC 29.8 L (32.0-37.0) g/dL Immature Gran # 0.23 H (0.00-0.04) 10*3/uL D-Dimer 1.48 H (<0.60) mg/L FEU Sodium 134 L (137-145) mmol/L Chloride 87 L (98-107) mmol/L Carbon Dioxide 40 H (22-30) mmol/L Glucose 109 H (74-99) mg/dL Assessment and Plan Plan: Assessment: 1. Acute kidney injury secondary to ATN secondary to hypotension. Renal function little worse from diuresis. Creatinine 1.19. 2. Hyperkalemia secondary to acute kidney injury. Was also on SHANNON inhibitor and Aldactone outpatient. Improved. 3. Volume overload. Improving with diuresis. 4. Acute on chronic diastolic CHF. 5. Down syndrome. 6. Hypokalemia from diuresis. Replaced. Better. 7. Acute on chronic hypoxic and hypercapnic respiratory failure. 8. Metabolic alkalosis from diuresis/volume contraction. Better. Plan: Maintain Lasix. Maintain Diamox. Replace potassium as needed. Check ABG. Wean FiO2. Avoid nephrotoxins. Continue to monitor renal function and urine output.
--- NOTE | 2025-03-03 11:39 | P.PN ---
Subjective Progress Note Date: 03/03/25 Patient is a 49-year-old male with past medical history significant for Down syndrome, congestive heart failure, obstructive sleep apnea unable to tolerate CPAP, hypertension, hyperlipidemia, gastroesophageal reflux disease and previous episodes of aspiration. Patient was at his ECF, [facility], found in some respiratory distress. SpO2 was reading low in the 70s. Placed back on supplemental oxygen. I am told he chronically wears 3 L/min nasal cannula at bedtime. Did receive a dose of 40 mg IV Lasix at outside facility. Sent in the emergency department late last night on a nonrebreather. Did not tolerate noninvasive CPAP/BiPAP in the ER. He is currently on Airvo with settings 50 L and 90%. SpO2 recorded around 97%. Workup including a chest x-ray showing cardiomegaly, pulmonary vascular congestion, and probable bilateral pleural effusions. He did receive a additional dose of IV Lasix 20 mg. He was also found to be severely hyperkalemic, with a potassium of 7.4 treated with one half amp D50 W, 10 units regular insulin, 1 amp sodium bicarbonate, concentrated albuterol, and 10 g of Lokelma. VBG: pCO2 of 63, pH of 7.33. Remaining labs including a CBC: WBC count 7.5, hemoglobin 14.3, platelets 243. CMP: Sodium 134, potassium 7.4, chloride 94, serum bicarb 34, BUN 60, creatinine 1.85, glucose 229. LFTs unremarkable. Troponin less than 0.012. NT proBNP only 576. EKG, non-bradycardic, poor quality and will have to be repeated. Patient currently being evaluated in the trauma bay 1. He is awake and alert, unable to provide any further information. Apprehensive of care. Denies any pain. No recorded fevers. No coughing. Tachypneic. On Airvo with above-mentioned sett ings. He does have a chronic indwelling urinary catheter, and there is ample urine in the bag. Current vital signs: Temperature 98.1 F, heart rate 78 bpm, blood pressure 118/54 mmHg, SpO2 recorded at 97% on Airvo. Patient was seen today on 02/26/2025, patient remains in the ICU, remains on Airvo requiring FiO2 of 80% and flow of 60 L/min. His overall pulmonary status is marginal patient looks comfortable, not in any distress. Denies any shortness of breath, remains on diuretics and seems to be clinically improving. Chest x- ray today showed improved pulmonary vascular congestion and scattered infiltrates persist. CBC is relatively normal potassium is back to 5.0 renal profile significantly improved with BUN of 44 creatinine 1.25 Patient was seen today on 02/27/2025, remains in the ICU, on Airvo 90% FiO2 6 0 L flow, about the same, does not seem to be in any distress remains on Lasix 40 mg twice daily chest x-ray is steadily showing improvement in his pulmonary edema. WBC count is 9.3 hemoglobin 14.1 electrolytes are normal bicarb is 38 BUN is 38 creatinine 0.96 Seen today on 02/28/2025, remains in the ICU, remains on Airvo 85% and 60 L flow, patient seems to be doing well, his O2 saturation is up and down in the mid 80s up to the mid 90s, patient is clinically improving, his chest x-ray showed improvement in his pulmonary edema continues to have some bibasilar atelectasis. Patient remains on bronchodilators remains on diuretics, and the plan is to continue titrating his FiO2 down to the point that we could get him transferred out of the ICU to medical floor. WBC count today is 9.2 hemoglobin 13.9 electrolytes are normal bicarb is 39 BUN is 33 creatinine 0.96. The patient is seen today March 01, 2025 in follow-up in the intensive care unit. He is currently sitting up in bed. Awake and alert in no acute distress. He is still requiring Airvo high flow oxygen at 60 L and 80% FiO2. Chest x-ray continues to show mild cardiomegaly, possible underlying COPD, ongoing patchy mid and lower lung opacities without significant change. White count 8.2. Hemoglobin 13.0. Platelets 230. Sodium 132. Potassium 3.5. Bicarb 39. BUN 30. Creatinine 1.03. Glucose 180. He remains on. Remains on Lasix 40 mg twice daily. Heparin for DVT prophylaxis. Currently in a +135 mL balance. The patient is seen today March 02, 2025 in follow-up in the intensive care unit. He is awake and alert in no acute distress. Sitting up in bed. He is on Airvo high flow oxygen at 60 L and 70% FiO2. Gradually being weaned down. No worsening shortness of breath, cough or congestion. He has been afebrile. Hemodynamically stable. Chest x-rays shows evidence of COPD with improvement in the congestive heart failure with less interstitial pulmonary edema. White count 8.3. Hemoglobin 13.1. Platelets 237. Sodium 133. Potassium 4.1. Bicarb 43. BUN 25. Creatinine 1.0. Glucose 144. He remains on oral Lasix and Diamox. Heparin for DVT prophylaxis. Continued on bronchodilators. The patient is seen today March 03, 2025 in follow-up in the intensive care unit. He is sitting up in bed. Awake and alert in no acute distress. He is afebrile. Hemodynamically stable. Still requiring Airvo high flow oxygen at 60 L and 55% FiO2. He remains on DuoNeb inhalations. Heparin for DVT prophylaxis. Remains on oral diuretics. White count 7.6. Hemoglobin 12.8. Platelets 234. Sodium 134. Potassium 3.8. Bicarb 40. BUN 18. Creatinine 1.19. Glucose 109. Troponin negative. proBNP 137. Chest x-ray continues to show bibasilar opacities. Objective - Vital Signs Vital signs: Vital Signs Temp 98.8 F 03/03/25 08:00 Pulse 60 03/03/25 11:00 Resp 19 03/03/25 11:00 BP 93/46 03/03/25 09:00 Pulse Ox 97 03/03/25 11:00 FiO2 55 03/03/25 11:00 Intake & Output 03/02/25 03/03/25 03/03/25 18:59 06:59 18:59 Intake Total 1476 Output Total 1605 810 300 Balance -129 -810 -300 Weight 113.4 kg Intake: Oral 1476 Output: Urine 1605 810 300 Other: Voiding Method Indwelling Catheter Indwelling Catheter Indwelling Catheter - Exam GENERAL EXAM: Alert, 49-year-old male, on Airvo high flow oxygen at 60 L and 55% FiO2, fair comfortable in no apparent distress. HEAD: Normocephalic. Clinical features of Down's syndrome. EYES: Normal reaction of pupils, equal size. NOSE: Clear with pink turbinates. THROAT: No erythema or exudates. NECK: No masses, no JVD. CHEST: No chest wall deformity. LUNGS: Equal air entry with few scattered rhonchi, crackles in the bilateral bases. CVS: S1 and S2 normal with no audible murmur, regular rhythm. ABDOMEN: No hepatosplenomegaly, normal bowel sounds, no guarding or rigidity. SPINE: No scoliosis or deformity SKIN: No rashes. Diffuse seborrheic keratosis. CENTRAL NERVOUS SYSTEM: No focal deficits, tone is normal in all 4 extremities. EXTREMITIES: There is no peripheral edema. No clubbing, no cyanosis. Peripheral pulses are intact. - Labs CBC & Chem 7: 03/03/25 06:00 03/03/25 06:00 Labs: Abnormal Lab Results - Last 24 Hours (Table) 03/02/25 03/03/25 03/03/25 Range/Units 13:09 06:00 06:00 RBC 4.34 L (4.40-5.60) 10*6/uL Hgb 12.8 L (13.0-17.0) g/dL MCV 98.8 H (80.0-97.0) fL MCHC 29.8 L (32.0-37.0) g/dL Immature Gran # 0.23 H (0.00-0.04) 10*3/uL D-Dimer 1.48 H (<0.60) mg/L FEU Sodium 134 L (137-145) mmol/L Chloride 87 L (98-107) mmol/L Carbon Dioxide 40 H (22-30) mmol/L Glucose 109 H (74-99) mg/dL Assessment and Plan Assessment: Acute on chronic hypoxemic and hypercapnic respiratory failure, currently on Airvo, suspect secondary to an exacerbation of diastolic congestive heart failure and underlying obesity hypoventilation syndrome History of heart failure with preserved ejection fraction Severe hyperkalemia, resolved Acute kidney injury, recovered, creatinine 1.19 History obstructive sleep apnea, unable to tolerate CPAP Morbid obesity, with a BMI of 42.9 kg/m History of hyperlipidemia Hypertension History of trisomy 21 Plan: The patient was seen and evaluated Chest x-ray, labs and medications reviewed Continued on Airvo high flow oxygen Current settings of 60 L and 55% FiO2 Continue to titrate down the FiO2 as tolerated Remains on oral Lasix and Diamox Continue to monitor urine output Continue bronchodilators Heparin for DVT prophylaxis Increase his activity as tolerated We will continue to follow I have personally seen and examined the patient, performed the documentation and the assessment and plan as written. Number of minutes spent on the visit: 10 Dictation was produced using Dragon dictation software. Please excuse any gra mmatical, word or spelling errors.
--- NOTE | 2025-03-03 16:36 | PN ---
PROGRESS NOTE SUBJECTIVE: Malik is a 49-year-old gentleman with history of Down syndrome, who is admitted to hospital with congestive heart failure. He is still requiring quite a bit of respiratory support. As a result, he is in ICU. MEDICATIONS: Currently on, 1. Aspirin. 2. Lipitor. 3. Lasix 40 p.o. b.i.d. OBJECTIVE: VITAL SIGNS: Heart rate is 66 beats per minute, blood pressure is 98/79, respiratory rate is 18. CHEST: Reveals good air entry bilaterally. HEART: Reveals first and second heart sounds. No gallop. EXTREMITIES: Did not reveal any edema. Peripheral pulses are felt. MMODL / IJN: [id number] /
--- NOTE | 2025-03-03 18:26 | P.PN ---
Subjective Progress Note Date: 03/03/25 Patient is a 49-year-old male with known history of Down syndrome obesity obesity hypoventilation syndrome on oxygen at [facility] of failure came in with hypoxemia patient was on BiPAP no high flow oxygen at this time. BNP is around 600 patient does have some pulm edema on the chest x-ray. Patient echo showed EF of around 60% possible diastolic dysfunction patient serum creatinine at baseline is within normal limits it is elevated to 1.76. Potassium was very high on admission , 7.4 which has come down to 5.9 after aggressive treatment of potassium. Patient is bit hypotensive as well patient was on lisinopril as well as Aldactone as an outpatient which are being held at this time patient is on IV Lasix 40 mg twice a day which is being continued. 02/26/2025 Patient eval today in the intensive care unit. He is lethargic. He continues on Airvo. He remains on IV Lasix. His labs have improved with a BUN of 44 creatinine 1.25 with sodium level 136 today. Chest x-ray does not show improved CHF. His potassium was also down to 5.0. 02/27/2025 Patient is evaluated today in the intensive care unit. Patient is more awake and alert. He continues on the airvo with difficutly weaning. Transitioned to oral lasix. Sodium level is 130, BUN of 38, creatinine 0.96. 02/28/2025 Patient is evaluated today in follow up in the ICU. Patient continues on the airvo with settings of 60/85. Oxygen saturations between 88-93%. He did not tolerate the 15L hi flow cannula today; oxygen saturations down to 70%. Continues on oral lasix twice daily. Sodium level better at 133. Patient is more obtunded today and felling asleep easily. Chest xray reveals cadiomegaly with bibasilar acute infiltrates and/or atelectasis. No significant change from one day earlier. 03/01/2025 Patient is evaluated today in the ICU. He continues to be more awake and alert. Chest xray reveals mild cardiomegaly, possible underlying COPD, and ongoing patchy mid and lower lung opacities without significant change. WBC 8.28, sodium 132, BUN 30, creatinine 1.03. Remains on airvo 60/70. 03/02/2025 Patient remains in the ICU. Continues on airvo with settings of 60/60. He has been more awake and alert. Saturations are slightly better at 93%. Chest xray reveals COPD with some improving CHF but with residual interstitial pulmonary edema. He has been pointing to his left chest wall with complaints of pain, although the pain is worse with palpitation likely musculoskeletal. CBC is essentially unremarkable, sodium level 133, potassium 4.1, BUN 25, creatinine 1.00. 03/03/2025 Patient evaluated today in the intensive care unit. He remains on airvo. He is asking to go home and wants to talk to "hubert" on the phone. Chest xray today reveals suspected continued CHF exacerbation and fluid over load state. He remains on oral lasix twice daily. proBNP f/u is 137. Sodium 134, potassium 3.8, BUN 18, creatinine 1.19. He denies any further reports of chest pain. Currently down to 55/50 on the airvo. Unable to complete review of systems PHYSICAL EXAMINATION: GENERAL: The patient is alert initially does not talk much, not in any acute distress. Obese HEENT: Pupils are round and equally reacting to light. EOMI. No scleral icterus. No conjunctival pallor. Normocephalic, atraumatic. No pharyngeal erythema. No thyromegaly. Enlarged tongue,. CARDIOVASCULAR: S1 and S2 present. No murmurs, rubs, or gallops. PULMONARY: Chest is clear to auscultation, no wheezing or crackles. ABDOMEN: Soft, nontender, nondistended, normoactive bowel sounds. No palpable organomegaly. MUSCULOSKELETAL: No joint swelling or deformity. EXTREMITIES: No cyanosis, clubbing, or pedal edema. NEUROLOGICAL: Gross neurological examination did not reveal any focal deficits. SKIN: No rashes. Assessment and plan - Acute hypoxic and possibly probably hypercapnic respiratory failure secondary to some pulmonary edema as well as obesity hypoventilation syndrome and chronic CO2 retention. - Acute renal failure: Probably prerenal azotemia from heart failure - Hyperkalemia secondary to acute renal failure Aldactone and lisinopril all of which are being held - Congestive heart failure preserved ejection fraction, chronic diastolic function with acute exacerbation - Hyperlipidemia - Obesity and obesity hypoventilation syndrome, sleep apnea on CPAP machine at home - Hypertension - Extensive seborrheic dermatitis DVT prophylaxis: Subcutaneous heparin Plan - Continue ICU care - Patient is on high flow nasal cannula oxygen saturating well at this time - Airvo slowly being weaned - Patient was started on Lasix which will be continued close monitoring of the kidney function - Monitor renal function and electrolyes - Continue strict intake and output monitioring - Add ketoconazole shampoo for the crusting on the scalp and around ears - Add lac-hydrin lotion for the feet and lower legs. - Monitor electrolyes and renal function The impression and plan of care has been dictated by Deb Ortega, Nurse Practitioner as directed. Dr. Sarah MD I have performed a history and physical examination and medical decision making of this patient, discussed the same with the dictator, and agree with the dictators assessment and plan as written, documented as a scribe. Based on total visit time, I have performed more than 50% of this visit. Objective - Vital Signs Vital signs: Vital Signs Temp 97.5 F L 03/03/25 04:00 Pulse 60 03/03/25 08:58 Resp 14 03/03/25 07:00 BP 95/75 03/03/25 07:00 Pulse Ox 92 L 03/03/25 08:49 FiO2 60 03/03/25 08:49 Intake & Output 03/02/25 03/03/25 03/03/25 18:59 06:59 18:59 Intake Total 1476 Output Total 1605 810 Balance -129 -810 Weight 113.4 kg Intake: Oral 1476 Output: Urine 1605 810 Other: Voiding Method Indwelling Catheter Indwelling Catheter - Labs CBC & Chem 7: 03/03/25 06:00 03/03/25 06:00 Labs: Abnormal Lab Results - Last 24 Hours (Table) 03/02/25 03/03/25 03/03/25 Range/Units 13:09 06:00 06:00 RBC 4.34 L (4.40-5.60) 10*6/uL Hgb 12.8 L (13.0-17.0) g/dL MCV 98.8 H (80.0-97.0) fL MCHC 29.8 L (32.0-37.0) g/dL Immature Gran # 0.23 H (0.00-0.04) 10*3/uL D-Dimer 1.48 H (<0.60) mg/L FEU Sodium 134 L (137-145) mmol/L Chloride 87 L (98-107) mmol/L Carbon Dioxide 40 H (22-30) mmol/L Glucose 109 H (74-99) mg/dL Assessment and Plan Time with Patient: Less than 30
[2025-03-03] MEDS: bisacodyL 10 MG SUPP RECTAL SCH (22:00)
[2025-03-04 04:30] LABS: MCH 29.8 pg (27.0-32.0); MCHC 30.2 g/dL (32.0-37.0); MCV 98.6 fL (80.0-97.0); Platelet Count 252 10*3/uL (140-440); RBC 4.36 10*6/uL (4.40-5.60); RDW 19.8 % (11.5-14.5); WBC 8.91 10*3/uL (4.50-10.00)
[2025-03-04 04:51] LABS: African American GFR (CKD) 79 (>60 ml/min/1.73 sqM); Blood Urea Nitrogen 26 mg/dL (9-20); Calcium 8.6 mg/dL (8.4-10.2); Chloride 90 mmol/L (98-107); Glucose 113 mg/dL (74-99); Non-African American GFR(CKD) 69 (>60 ml/min/1.73 sqM); Sodium 137 mmol/L (137-145)
[2025-03-04 04:58] LABS: Anion Gap 9 mmol/L
[2025-03-04 05:01] LABS: Carbon Dioxide 38 mmol/L (22-30)
[2025-03-04 05:26] LABS: Band Neutrophils % 2 %; Eosinophils # (M) 0.18 k/uL (0-0.7); Lymphocytes # (M) 3.03 k/uL (1.0-4.8); Monocytes # (M) 0.89 k/uL (0-1.0); Myelocytes # (M) 0.18 k/uL (0); Myelocytes % 2 %; Neutrophils # (M) 4.63 k/uL (1.3-7.7); Neutrophils % (M) 50 %; Nucleated Red Blood Cells 0 /100 WBC (0-0); Total Cells Counted 100
--- NOTE | 2025-03-04 06:03 | XR ---
EXAMINATION TYPE: XR chest 1V portable DATE OF EXAM: 03/04/2025 CLINICAL INDICATION: Male, 49 years old with history of f/u bibasilar infiltrates; fluid overload; ch f, progress study. TECHNIQUE: Single AP portable semiupright view of the chest is obtained. COMPARISON: Chest x-ray from one day earlier and older studies. FINDINGS: Persistent cardiomegaly. Persistent chronic parenchymal changes with bilateral central and lower lung increased opacities. Osseous structures are intact. IMPRESSION: Persistent bilateral mid to lower lung acute infiltrates and/or edema. No significant sabina nge from one day earlier. [facility], , 03/04/2025 6:00 AM
--- NOTE | 2025-03-04 09:48 | P.PN ---
Subjective Patient is seen in follow-up for acute kidney injury. GFR near baseline. On oral Lasix. Also on Diamox. Bicarb better. On Airvo. Requiring higher amounts of oxygen. Vital signs are stable. General: Sitting up in bed. No acute distress. HEENT: On Airvo. LUNGS: Scattered rhonchi. HEART: Rate and Rhythm are regular. ABDOMEN: Nontender. EXTREMITITES: 1+ edema. Objective - Vital Signs Vital signs: Vital Signs Temp 98.4 F 03/04/25 08:00 Pulse 73 03/04/25 09:46 Resp 20 03/04/25 08:00 BP 90/52 03/04/25 08:00 Pulse Ox 92 L 03/04/25 09:28 FiO2 72 03/04/25 09:28 Intake & Output 03/03/25 03/04/25 03/04/25 18:59 06:59 18:59 Intake Total 520 240 Output Total 850 450 Balance -330 -210 Intake: Oral 520 240 Output: Urine 850 450 Other: Voiding Method Indwelling Catheter Indwelling Catheter # Bowel Movements 0 0 - Labs CBC & Chem 7: 03/04/25 03:53 03/04/25 03:53 Labs: Abnormal Lab Results - Last 24 Hours (Table) 03/04/25 03/04/25 Range/Units 03:53 03:53 RBC 4.36 L (4.40-5.60) 10*6/uL MCV 98.6 H (80.0-97.0) fL MCHC 30.2 L (32.0-37.0) g/dL Immature Gran # 0.53 H (0.00-0.04) 10*3/uL Myelocytes # (Manual) 0.18 H (0) k/uL Chloride 90 L (98-107) mmol/L Carbon Dioxide 38 H (22-30) mmol/L BUN 26 H (9-20) mg/dL Glucose 113 H (74-99) mg/dL Assessment and Plan Plan: Assessment: 1. Acute kidney injury secondary to ATN secondary to hypotension. Renal function little worse from diuresis. Creatinine stable at 1.22. 2. Hyperkalemia secondary to acute kidney injury. Was also on SHANNON inhibitor and Aldactone outpatient. Resolved. 3. Volume overload. Improving with diuresis. 4. Acute on chronic diastolic CHF. 5. Down syndrome. 6. Hypokalemia from diuresis. Replaced. Better. 7. Acute on chronic hypoxic and hypercapnic respiratory failure. 8. Metabolic alkalosis from diuresis/volume contraction. Better. Plan: Maintain Lasix. Maintain Diamox. Replace potassium as needed. Check ABG. Wean FiO2. Avoid nephrotoxins. Continue to monitor renal function and urine output.
[2025-03-04 10:03] LABS: ABG Base Excess 10.9 mmol/L; ABG Oxygen Saturation 95.6 % (94-97); ABG PH 7.34 (7.35-7.45); ABG PO2 77 mmHg (83-108); ABG TCO2 42 mmol/L (19-24); Allen Test Performed? Yes
[2025-03-04 10:06] LABS: ABG PCO2 74 mmHg (35-45)
[2025-03-04 10:07] LABS: ABG HCO3 40 mmol/L (21-25)
--- NOTE | 2025-03-04 12:01 | P.PN ---
Subjective Progress Note Date: 03/04/25 Patient is a 49-year-old male with past medical history significant for Down syndrome, congestive heart failure, obstructive sleep apnea unable to tolerate CPAP, hypertension, hyperlipidemia, gastroesophageal reflux disease and previous episodes of aspiration. Patient was at his ECF, [facility], found in some respiratory distress. SpO2 was reading low in the 70s. Placed back on supplemental oxygen. I am told he chronically wears 3 L/min nasal cannula at bedtime. Did receive a dose of 40 mg IV Lasix at outside facility. Sent in the emergency department late last night on a nonrebreather. Did not tolerate noninvasive CPAP/BiPAP in the ER. He is currently on Airvo with settings 50 L and 90%. SpO2 recorded around 97%. Workup including a chest x-ray showing cardiomegaly, pulmonary vascular congestion, and probable bilateral pleural effusions. He did receive a additional dose of IV Lasix 20 mg. He was also found to be severely hyperkalemic, with a potassium of 7.4 treated with one half amp D50 W, 10 units regular insulin, 1 amp sodium bicarbonate, concentrated albuterol, and 10 g of Lokelma. VBG: pCO2 of 63, pH of 7.33. Remaining labs including a CBC: WBC count 7.5, hemoglobin 14.3, platelets 243. CMP: Sodium 134, potassium 7.4, chloride 94, serum bicarb 34, BUN 60, creatinine 1.85, glucose 229. LFTs unremarkable. Troponin less than 0.012. NT proBNP only 576. EKG, non-bradycardic, poor quality and will have to be repeated. Patient currently being evaluated in the trauma bay 1. He is awake and alert, unable to provide any further information. Apprehensive of care. Denies any pain. No recorded fevers. No coughing. Tachypneic. On Airvo with above-mentioned sett ings. He does have a chronic indwelling urinary catheter, and there is ample urine in the bag. Current vital signs: Temperature 98.1 F, heart rate 78 bpm, blood pressure 118/54 mmHg, SpO2 recorded at 97% on Airvo. Patient was seen today on 02/26/2025, patient remains in the ICU, remains on Airvo requiring FiO2 of 80% and flow of 60 L/min. His overall pulmonary status is marginal patient looks comfortable, not in any distress. Denies any shortness of breath, remains on diuretics and seems to be clinically improving. Chest x- ray today showed improved pulmonary vascular congestion and scattered infiltrates persist. CBC is relatively normal potassium is back to 5.0 renal profile significantly improved with BUN of 44 creatinine 1.25 Patient was seen today on 02/27/2025, remains in the ICU, on Airvo 90% FiO2 6 0 L flow, about the same, does not seem to be in any distress remains on Lasix 40 mg twice daily chest x-ray is steadily showing improvement in his pulmonary edema. WBC count is 9.3 hemoglobin 14.1 electrolytes are normal bicarb is 38 BUN is 38 creatinine 0.96 Seen today on 02/28/2025, remains in the ICU, remains on Airvo 85% and 60 L flow, patient seems to be doing well, his O2 saturation is up and down in the mid 80s up to the mid 90s, patient is clinically improving, his chest x-ray showed improvement in his pulmonary edema continues to have some bibasilar atelectasis. Patient remains on bronchodilators remains on diuretics, and the plan is to continue titrating his FiO2 down to the point that we could get him transferred out of the ICU to medical floor. WBC count today is 9.2 hemoglobin 13.9 electrolytes are normal bicarb is 39 BUN is 33 creatinine 0.96. The patient is seen today March 01, 2025 in follow-up in the intensive care unit. He is currently sitting up in bed. Awake and alert in no acute distress. He is still requiring Airvo high flow oxygen at 60 L and 80% FiO2. Chest x-ray continues to show mild cardiomegaly, possible underlying COPD, ongoing patchy mid and lower lung opacities without significant change. White count 8.2. Hemoglobin 13.0. Platelets 230. Sodium 132. Potassium 3.5. Bicarb 39. BUN 30. Creatinine 1.03. Glucose 180. He remains on. Remains on Lasix 40 mg twice daily. Heparin for DVT prophylaxis. Currently in a +135 mL balance. The patient is seen today March 02, 2025 in follow-up in the intensive care unit. He is awake and alert in no acute distress. Sitting up in bed. He is on Airvo high flow oxygen at 60 L and 70% FiO2. Gradually being weaned down. No worsening shortness of breath, cough or congestion. He has been afebrile. Hemodynamically stable. Chest x-rays shows evidence of COPD with improvement in the congestive heart failure with less interstitial pulmonary edema. White count 8.3. Hemoglobin 13.1. Platelets 237. Sodium 133. Potassium 4.1. Bicarb 43. BUN 25. Creatinine 1.0. Glucose 144. He remains on oral Lasix and Diamox. Heparin for DVT prophylaxis. Continued on bronchodilators. The patient is seen today March 03, 2025 in follow-up in the intensive care unit. He is sitting up in bed. Awake and alert in no acute distress. He is afebrile. Hemodynamically stable. Still requiring Airvo high flow oxygen at 60 L and 55% FiO2. He remains on DuoNeb inhalations. Heparin for DVT prophylaxis. Remains on oral diuretics. White count 7.6. Hemoglobin 12.8. Platelets 234. Sodium 134. Potassium 3.8. Bicarb 40. BUN 18. Creatinine 1.19. Glucose 109. Troponin negative. proBNP 137. Chest x-ray continues to show bibasilar opacities. The patient is seen today March 04, 2025 in follow-up in the intensive care unit. He is a 3 S. overflow patient. He is awake and alert in no acute distress. Sitting up in bed. Continued on Airvo high flow oxygen at 55 L and 70% FiO2. He had arterial blood gases revealed a PO2 of 77, pCO2 74 and a pH of 7.34. White count 8.9. Hemoglobin 13.0. Platelets 252. Sodium 137. Potassium 4.0. Bicarb 38. BUN 26. Creatinine 1.22. Glucose 113. He remains on DuoNeb inhalations. Continued on Lasix and Diamox. Heparin for DVT prophylaxis. Objective - Vital Signs Vital signs: Vital Signs Temp 98.4 F 03/04/25 08:00 Pulse 73 03/04/25 09:46 Resp 20 03/04/25 08:00 BP 90/52 03/04/25 08:00 Pulse Ox 92 L 03/04/25 11:19 FiO2 72 03/04/25 11:19 Intake & Output 03/03/25 03/04/25 03/04/25 18:59 06:59 18:59 Intake Total 520 240 500 Output Total 850 450 500 Balance -330 -210 0 Intake: Oral 520 240 500 Output: Urine 850 450 500 Other: Voiding Method Indwelling Catheter Indwelling Catheter Indwelling Catheter # Bowel Movements 0 0 - Exam GENERAL EXAM: Alert, smiling 49-year-old male, sitting up in bed, on Airvo high flow oxygen at 55 L and 70% FiO2, in no apparent distress. HEAD: Normocephalic. Clinical features of Down's syndrome. EYES: Normal reaction of pupils, equal size. NOSE: Clear with pink turbinates. THROAT: No erythema or exudates. NECK: No masses, no JVD. CHEST: No chest wall deformity. LUNGS: Equal air entry with few scattered rhonchi, crackles in the bilateral bases. CVS: S1 and S2 normal with no audible murmur, regular rhythm. ABDOMEN: No hepatosplenomegaly, normal bowel sounds, no guarding or rigidity. SPINE: No scoliosis or deformity SKIN: No rashes. Diffuse seborrheic keratosis. CENTRAL NERVOUS SYSTEM: No focal deficits, tone is normal in all 4 extremities. EXTREMITIES: There is no peripheral edema. No clubbing, no cyanosis. Peripheral pulses are intact. - Labs CBC & Chem 7: 03/04/25 03:53 03/04/25 03:53 Labs: Abnormal Lab Results - Last 24 Hours (Table) 03/04/25 03/04/25 03/04/25 Range/Units 03:53 03:53 09:58 RBC 4.36 L (4.40-5.60) 10*6/uL MCV 98.6 H (80.0-97.0) fL MCHC 30.2 L (32.0-37.0) g/dL Immature Gran # 0.53 H (0.00-0.04) 10*3/uL Myelocytes # (Manual) 0.18 H (0) k/uL ABG pH 7.34 L (7.35-7.45) ABG pCO2 74 H* (35-45) mmHg ABG pO2 77 L (83-108) mmHg ABG HCO3 40 H* (21-25) mmol/L ABG Total CO2 42 H (19-24) mmol/L Hemoglobin 12.5 L (13.0-17.5) gm/dL Chloride 90 L (98-107) mmol/L Carbon Dioxide 38 H (22-30) mmol/L BUN 26 H (9-20) mg/dL Glucose 113 H (74-99) mg/dL Assessment and Plan Assessment: Acute on chronic hypoxemic and hypercapnic respiratory failure, currently on Airvo, suspect secondary to an exacerbation of diastolic congestive heart failure and underlying obesity hypoventilation syndrome History of heart failure with preserved ejection fraction Severe hyperkalemia, resolved Acute kidney injury, recovered, creatinine 1.19 History obstructive sleep apnea, unable to tolerate CPAP Morbid obesity, with a BMI of 42.9 kg/m History of hyperlipidemia Hypertension History of trisomy 21 Plan: The patient was seen and evaluated Chest x-ray, ABGs, labs and medications reviewed Continued on Airvo high flow oxygen Current settings of 55 L and 70% FiO2 Continue to titrate down the FiO2 as tolerated Remains on oral Lasix and Diamox Continue bronchodilators Heparin for DVT prophylaxis We will continue to follow I have personally seen and examined the patient, performed the documentation and the assessment and plan as written. Number of minutes spent on the visit: 10 Dictation was produced using [employer] dictation software. Please excuse any grammatical, word or spelling errors.
--- NOTE | 2025-03-04 20:56 | P.PN ---
Subjective Progress Note Date: 03/04/25 Patient is a 49-year-old male with known history of Down syndrome obesity obesity hypoventilation syndrome on oxygen at [facility] of failure came in with hypoxemia patient was on BiPAP no high flow oxygen at this time. BNP is around 600 patient does have some pulm edema on the chest x-ray. Patient echo showed EF of around 60% possible diastolic dysfunction patient serum creatinine at baseline is within normal limits it is elevated to 1.76. Potassium was very high on admission , 7.4 which has come down to 5.9 after aggressive treatment of potassium. Patient is bit hypotensive as well patient was on lisinopril as well as Aldactone as an outpatient which are being held at this time patient is on IV Lasix 40 mg twice a day which is being continued. 02/26/2025 Patient eval today in the intensive care unit. He is lethargic. He continues on Airvo. He remains on IV Lasix. His labs have improved with a BUN of 44 creatinine 1.25 with sodium level 136 today. Chest x-ray does not show improved CHF. His potassium was also down to 5.0. 02/27/2025 Patient is evaluated today in the intensive care unit. Patient is more awake and alert. He continues on the airvo with difficutly weaning. Transitioned to oral lasix. Sodium level is 130, BUN of 38, creatinine 0.96. 02/28/2025 Patient is evaluated today in follow up in the ICU. Patient continues on the airvo with settings of 60/85. Oxygen saturations between 88-93%. He did not tolerate the 15L hi flow cannula today; oxygen saturations down to 70%. Continues on oral lasix twice daily. Sodium level better at 133. Patient is more obtunded today and felling asleep easily. Chest xray reveals cadiomegaly with bibasilar acute infiltrates and/or atelectasis. No significant change from one day earlier. 03/01/2025 Patient is evaluated today in the ICU. He continues to be more awake and alert. Chest xray reveals mild cardiomegaly, possible underlying COPD, and ongoing patchy mid and lower lung opacities without significant change. WBC 8.28, sodium 132, BUN 30, creatinine 1.03. Remains on airvo 60/70. 03/02/2025 Patient remains in the ICU. Continues on airvo with settings of 60/60. He has been more awake and alert. Saturations are slightly better at 93%. Chest xray reveals COPD with some improving CHF but with residual interstitial pulmonary edema. He has been pointing to his left chest wall with complaints of pain, although the pain is worse with palpitation likely musculoskeletal. CBC is essentially unremarkable, sodium level 133, potassium 4.1, BUN 25, creatinine 1.00. 03/03/2025 Patient evaluated today in the intensive care unit. He remains on airvo. He is asking to go home and wants to talk to "hubert" on the phone. Chest xray today reveals suspected continued CHF exacerbation and fluid over load state. He remains on oral lasix twice daily. proBNP f/u is 137. Sodium 134, potassium 3.8, BUN 18, creatinine 1.19. He denies any further reports of chest pain. Currently down to 55/50 on the airvo. 03/04/2025 Patient evaluated in the ICU. He continues on airvo; 55/70 with oxygen saturations in the 90s. Patient is more sleepy today. Chest xray today shows persistent bilateral mid to lower lung acute infiltrates and or edema. No significant change from one day earlier. Labs today reveal a white blood cell count of 8.91, hemoglobin 13.0, sodium level 137 potassium 4.0, BUN of 26 creatinine 1.22, procalcitonin level was less than 0.20. Unable to complete review of systems PHYSICAL EXAMINATION: GENERAL: The patient is alert initially does not talk much, not in any acute distress. Obese HEENT: Pupils are round and equally reacting to light. EOMI. No scleral icterus. No conjunctival pallor. Normocephalic, atraumatic. No pharyngeal erythema. No thyromegaly. Enlarged tongue,. CARDIOVASCULAR: S1 and S2 present. No murmurs, rubs, or gallops. PULMONARY: Chest is clear to auscultation, no wheezing or crackles. ABDOMEN: Soft, nontender, nondistended, normoactive bowel sounds. No palpable organomegaly. MUSCULOSKELETAL: No joint swelling or deformity. EXTREMITIES: No cyanosis, clubbing, or pedal edema. NEUROLOGICAL: Gross neurological examination did not reveal any focal deficits. SKIN: No rashes. Assessment and plan - Acute hypoxic and possibly probably hypercapnic respiratory failure secondary to some pulmonary edema as well as obesity hypoventilation syndrome and chronic CO2 retention. - Acute renal failure: Probably prerenal azotemia from heart failure - Hyperkalemia secondary to acute renal failure Aldactone and lisinopril all of which are being held - Congestive heart failure preserved ejection fraction, chronic diastolic function with acute exacerbation - Hyperlipidemia - Obesity and obesity hypoventilation syndrome, sleep apnea on CPAP machine at home - Hypertension - Extensive seborrheic dermatitis DVT prophylaxis: Subcutaneous heparin Plan - Continue ICU care - Patient is on high flow nasal cannula oxygen saturating well at this time - Airvo slowly being weaned as tolerated patient has been slow to respond - Patient was started on Lasix which will be continued close monitoring of the kidney function - Monitor renal function and electrolyes - Continue strict intake and output monitioring - ketoconazole shampoo for the crusting on the scalp and around ears - ac-hydrin lotion for the feet and lower legs. - Monitor electrolyes and renal function The impression and plan of care has been dictated by Deb Ortega, Nurse Practitioner as directed. Dr. Sarah MD I have performed a history and physical examination and medical decision making of this patient, discussed the same with the dictator, and agree with the dictators assessment and plan as written, documented as a scribe. Based on total visit time, I have performed more than 50% of this visit. Objective - Vital Signs Vital signs: Vital Signs Temp 99.4 F 03/04/25 16:00 Pulse 79 03/04/25 20:18 Resp 20 03/04/25 20:18 BP 101/50 03/04/25 16:00 Pulse Ox 91 L 03/04/25 20:19 FiO2 70 03/04/25 20:19 Intake & Output 03/04/25 03/04/25 03/05/25 06:59 18:59 06:59 Intake Total 240 1020 Output Total 450 1250 Balance -210 -230 Weight 117.8 kg 117.8 kg Intake: Oral 240 1020 Output: Urine 450 1250 Other: Voiding Method Indwelling Catheter Indwelling Catheter # Bowel Movements 0 - Labs CBC & Chem 7: 03/04/25 03:53 03/04/25 03:53 Labs: Abnormal Lab Results - Last 24 Hours (Table) 03/04/25 03/04/25 03/04/25 Range/Units 03:53 03:53 09:58 RBC 4.36 L (4.40-5.60) 10*6/uL MCV 98.6 H (80.0-97.0) fL MCHC 30.2 L (32.0-37.0) g/dL Immature Gran # 0.53 H (0.00-0.04) 10*3/uL Myelocytes # (Manual) 0.18 H (0) k/uL ABG pH 7.34 L (7.35-7.45) ABG pCO2 74 H* (35-45) mmHg ABG pO2 77 L (83-108) mmHg ABG HCO3 40 H* (21-25) mmol/L ABG Total CO2 42 H (19-24) mmol/L Hemoglobin 12.5 L (13.0-17.5) gm/dL Chloride 90 L (98-107) mmol/L Carbon Dioxide 38 H (22-30) mmol/L BUN 26 H (9-20) mg/dL Glucose 113 H (74-99) mg/dL Assessment and Plan Time with Patient: Less than 30
[2025-03-05 03:04] LABS: HCT 39.4 % (39.6-50.0); MCH 30.3 pg (27.0-32.0); MCHC 30.5 g/dL (32.0-37.0); MCV 99.5 fL (80.0-97.0); Mean Platelet Volume 10.3 fL (9.5-12.2); Platelet Count 226 10*3/uL (140-440); RBC 3.96 10*6/uL (4.40-5.60); WBC 9.83 10*3/uL (4.50-10.00)
[2025-03-05 03:25] LABS: African American GFR (CKD) 86 (>60 ml/min/1.73 sqM); Anion Gap 7 mmol/L; Blood Urea Nitrogen 28 mg/dL (9-20); Calcium 8.8 mg/dL (8.4-10.2); Carbon Dioxide 37 mmol/L (22-30); Chloride 92 mmol/L (98-107); Glucose 166 mg/dL (74-99); Non-African American GFR(CKD) 75 (>60 ml/min/1.73 sqM); Potassium 3.8 mmol/L (3.5-5.1); Sodium 136 mmol/L (137-145)
[2025-03-05 05:08] LABS: Band Neutrophils % 1 %; Eosinophils # (M) 0.59 k/uL (0-0.7); Lymphocytes # (M) 2.56 k/uL (1.0-4.8); Monocytes # (M) 0.79 k/uL (0-1.0); Neutrophils # (M) 5.89 k/uL (1.3-7.7); Neutrophils % (M) 59 %; Nucleated Red Blood Cells 0 /100 WBC (0-0); RBC Morphology /P; Total Cells Counted 100
[2025-03-05] MEDS ORDERED: LIDOCAINE 4% PATCH TOPICAL SCH (09:30)
[2025-03-05] MEDS: POTASSIUM BICARBONATE/CIT AC 20 MEQ TABLET.EFF PO ONE (09:48)
--- NOTE | 2025-03-05 09:48 | P.PN ---
Subjective Patient is seen in follow-up for acute kidney injury. GFR near baseline. On oral Lasix. Also on Diamox. Bicarb better. On Airvo. Nonoliguric. Vital signs are stable. General: Sitting up in bed. No acute distress. HEENT: On Airvo. LUNGS: Scattered rhonchi. HEART: Rate and Rhythm are regular. ABDOMEN: Nontender. EXTREMITITES: 1+ edema. Objective - Vital Signs Vital signs: Vital Signs Temp 98.6 F 03/05/25 08:00 Pulse 65 03/05/25 08:00 Resp 17 03/05/25 08:00 BP 97/53 03/05/25 08:00 Pulse Ox 93 L 03/05/25 08:00 FiO2 60 03/05/25 08:00 Intake & Output 03/04/25 03/05/25 03/05/25 18:59 06:59 18:59 Intake Total 1020 500 Output Total 1250 900 Balance -230 -400 Weight 117.8 kg 117 kg Intake: Oral 1020 500 Output: Urine 1250 900 Other: Voiding Method Indwelling Catheter Indwelling Catheter - Labs CBC & Chem 7: 03/05/25 02:45 03/05/25 02:45 Labs: Abnormal Lab Results - Last 24 Hours (Table) 03/04/25 03/05/25 03/05/25 Range/Units 09:58 02:45 02:45 RBC 3.96 L (4.40-5.60) 10*6/uL Hgb 12.0 L (13.0-17.0) g/dL Hct 39.4 L (39.6-50.0) % MCV 99.5 H (80.0-97.0) fL MCHC 30.5 L (32.0-37.0) g/dL Immature Gran # 0.77 H (0.00-0.04) 10*3/uL ABG pH 7.34 L (7.35-7.45) ABG pCO2 74 H* (35-45) mmHg ABG pO2 77 L (83-108) mmHg ABG HCO3 40 H* (21-25) mmol/L ABG Total CO2 42 H (19-24) mmol/L Hemoglobin 12.5 L (13.0-17.5) gm/dL Sodium 136 L (137-145) mmol/L Chloride 92 L (98-107) mmol/L Carbon Dioxide 37 H (22-30) mmol/L BUN 28 H (9-20) mg/dL Glucose 166 H (74-99) mg/dL Assessment and Plan Plan: Assessment: 1. Acute kidney injury secondary to ATN secondary to hypotension. Renal function little worse from diuresis. Creatinine stable at 1.14. 2. Hyperkalemia secondary to acute kidney injury. Was also on SHANNON inhibitor and Aldactone outpatient. Resolved. 3. Volume overload. Improving with diuresis. 4. Acute on chronic diastolic CHF. 5. Down syndrome. 6. Hypokalemia from diuresis. Replaced. Better. 7. Acute on chronic hypoxic and hypercapnic respiratory failure. 8. Metabolic alkalosis from diuresis/volume contraction. Also compensatory for underlying respiratory acidosis. Better. Plan: Maintain Lasix. Stop Diamox. Replace potassium as needed. Wean FiO2. Avoid nephrotoxins. Continue to monitor renal function and urine output.
--- NOTE | 2025-03-05 10:32 | P.PN ---
Subjective Progress Note Date: 03/05/25 Patient is a 49-year-old male with past medical history significant for Down syndrome, congestive heart failure, obstructive sleep apnea unable to tolerate CPAP, hypertension, hyperlipidemia, gastroesophageal reflux disease and previous episodes of aspiration. Patient was at his ECF, [facility], found in some respiratory distress. SpO2 was reading low in the 70s. Placed back on supplemental oxygen. I am told he chronically wears 3 L/min nasal cannula at bedtime. Did receive a dose of 40 mg IV Lasix at outside facility. Sent in the emergency department late last night on a nonrebreather. Did not tolerate noninvasive CPAP/BiPAP in the ER. He is currently on Airvo with settings 50 L and 90%. SpO2 recorded around 97%. Workup including a chest x-ray showing cardiomegaly, pulmonary vascular congestion, and probable bilateral pleural effusions. He did receive a additional dose of IV Lasix 20 mg. He was also found to be severely hyperkalemic, with a potassium of 7.4 treated with one half amp D50 W, 10 units regular insulin, 1 amp sodium bicarbonate, concentrated albuterol, and 10 g of Lokelma. VBG: pCO2 of 63, pH of 7.33. Remaining labs including a CBC: WBC count 7.5, hemoglobin 14.3, platelets 243. CMP: Sodium 134, potassium 7.4, chloride 94, serum bicarb 34, BUN 60, creatinine 1.85, glucose 229. LFTs unremarkable. Troponin less than 0.012. NT proBNP only 576. EKG, non-bradycardic, poor quality and will have to be repeated. Patient currently being evaluated in the trauma bay 1. He is awake and alert, unable to provide any further information. Apprehensive of care. Denies any pain. No recorded fevers. No coughing. Tachypneic. On Airvo with above-mentioned sett ings. He does have a chronic indwelling urinary catheter, and there is ample urine in the bag. Current vital signs: Temperature 98.1 F, heart rate 78 bpm, blood pressure 118/54 mmHg, SpO2 recorded at 97% on Airvo. Patient was seen today on 02/26/2025, patient remains in the ICU, remains on Airvo requiring FiO2 of 80% and flow of 60 L/min. His overall pulmonary status is marginal patient looks comfortable, not in any distress. Denies any shortness of breath, remains on diuretics and seems to be clinically improving. Chest x- ray today showed improved pulmonary vascular congestion and scattered infiltrates persist. CBC is relatively normal potassium is back to 5.0 renal profile significantly improved with BUN of 44 creatinine 1.25 Patient was seen today on 02/27/2025, remains in the ICU, on Airvo 90% FiO2 6 0 L flow, about the same, does not seem to be in any distress remains on Lasix 40 mg twice daily chest x-ray is steadily showing improvement in his pulmonary edema. WBC count is 9.3 hemoglobin 14.1 electrolytes are normal bicarb is 38 BUN is 38 creatinine 0.96 Seen today on 02/28/2025, remains in the ICU, remains on Airvo 85% and 60 L flow, patient seems to be doing well, his O2 saturation is up and down in the mid 80s up to the mid 90s, patient is clinically improving, his chest x-ray showed improvement in his pulmonary edema continues to have some bibasilar atelectasis. Patient remains on bronchodilators remains on diuretics, and the plan is to continue titrating his FiO2 down to the point that we could get him transferred out of the ICU to medical floor. WBC count today is 9.2 hemoglobin 13.9 electrolytes are normal bicarb is 39 BUN is 33 creatinine 0.96. The patient is seen today March 01, 2025 in follow-up in the intensive care unit. He is currently sitting up in bed. Awake and alert in no acute distress. He is still requiring Airvo high flow oxygen at 60 L and 80% FiO2. Chest x-ray continues to show mild cardiomegaly, possible underlying COPD, ongoing patchy mid and lower lung opacities without significant change. White count 8.2. Hemoglobin 13.0. Platelets 230. Sodium 132. Potassium 3.5. Bicarb 39. BUN 30. Creatinine 1.03. Glucose 180. He remains on. Remains on Lasix 40 mg twice daily. Heparin for DVT prophylaxis. Currently in a +135 mL balance. The patient is seen today March 02, 2025 in follow-up in the intensive care unit. He is awake and alert in no acute distress. Sitting up in bed. He is on Airvo high flow oxygen at 60 L and 70% FiO2. Gradually being weaned down. No worsening shortness of breath, cough or congestion. He has been afebrile. Hemodynamically stable. Chest x-rays shows evidence of COPD with improvement in the congestive heart failure with less interstitial pulmonary edema. White count 8.3. Hemoglobin 13.1. Platelets 237. Sodium 133. Potassium 4.1. Bicarb 43. BUN 25. Creatinine 1.0. Glucose 144. He remains on oral Lasix and Diamox. Heparin for DVT prophylaxis. Continued on bronchodilators. The patient is seen today March 03, 2025 in follow-up in the intensive care unit. He is sitting up in bed. Awake and alert in no acute distress. He is afebrile. Hemodynamically stable. Still requiring Airvo high flow oxygen at 60 L and 55% FiO2. He remains on DuoNeb inhalations. Heparin for DVT prophylaxis. Remains on oral diuretics. White count 7.6. Hemoglobin 12.8. Platelets 234. Sodium 134. Potassium 3.8. Bicarb 40. BUN 18. Creatinine 1.19. Glucose 109. Troponin negative. proBNP 137. Chest x-ray continues to show bibasilar opacities. The patient is seen today March 04, 2025 in follow-up in the intensive care unit. He is a 3 S. overflow patient. He is awake and alert in no acute distress. Sitting up in bed. Continued on Airvo high flow oxygen at 55 L and 70% FiO2. He had arterial blood gases revealed a PO2 of 77, pCO2 74 and a pH of 7.34. White count 8.9. Hemoglobin 13.0. Platelets 252. Sodium 137. Potassium 4.0. Bicarb 38. BUN 26. Creatinine 1.22. Glucose 113. He remains on DuoNeb inhalations. Continued on Lasix and Diamox. Heparin for DVT prophylaxis. The patient is seen today March 05, 2025 in follow-up in the intensive care unit. He remains a 3 S. overflow patient. He is awake and alert in no acute distress. Sitting up in bed. Remains on Airvo high flow oxygen at 55 L and 60% FiO2. No IV fluids. White count 9.8. Hemoglobin 12.0. Platelets 226. Sodium 136. Potassium 3.8. Bicarb 37. BUN 28. Creatinine 1.14. Glucose 166. Procalcitonin was negative at 0.20. He remains on DuoNeb inhalations. Continued on oral diuretics. Heparin for DVT prophylaxis. Objective - Vital Signs Vital signs: Vital Signs Temp 98.6 F 03/05/25 08:00 Pulse 65 03/05/25 08:00 Resp 17 03/05/25 08:00 BP 97/53 03/05/25 08:00 Pulse Ox 95 03/05/25 10:23 FiO2 50 03/05/25 10:23 Intake & Output 03/04/25 03/05/25 03/05/25 18:59 06:59 18:59 Intake Total 1020 500 Output Total 1250 900 Balance -230 -400 Weight 117.8 kg 117 kg Intake: Oral 1020 500 Output: Urine 1250 900 Other: Voiding Method Indwelling Catheter Indwelling Catheter - Exam GENERAL EXAM: Alert, 49-year-old male, on Airvo high flow oxygen at 55 L and 60% FiO2, in no apparent distress. HEAD: Normocephalic. Clinical features of Down's syndrome. EYES: Normal reaction of pupils, equal size. NOSE: Clear with pink turbinates. THROAT: No erythema or exudates. NECK: No masses, no JVD. CHEST: No chest wall deformity. LUNGS: Equal air entry with few scattered rhonchi, crackles in the bilateral bases. CVS: S1 and S2 normal with no audible murmur, regular rhythm. ABDOMEN: No hepatosplenomegaly, normal bowel sounds, no guarding or rigidity. SPINE: No scoliosis or deformity SKIN: No rashes. Diffuse seborrheic keratosis. CENTRAL NERVOUS SYSTEM: No focal deficits, tone is normal in all 4 extremities. EXTREMITIES: There is no peripheral edema. No clubbing, no cyanosis. Peripheral pulses are intact. - Labs CBC & Chem 7: 03/05/25 02:45 03/05/25 02:45 Labs: Abnormal Lab Results - Last 24 Hours (Table) 03/05/25 03/05/25 Range/Units 02:45 02:45 RBC 3.96 L (4.40-5.60) 10*6/uL Hgb 12.0 L (13.0-17.0) g/dL Hct 39.4 L (39.6-50.0) % MCV 99.5 H (80.0-97.0) fL MCHC 30.5 L (32.0-37.0) g/dL Immature Gran # 0.77 H (0.00-0.04) 10*3/uL Sodium 136 L (137-145) mmol/L Chloride 92 L (98-107) mmol/L Carbon Dioxide 37 H (22-30) mmol/L BUN 28 H (9-20) mg/dL Glucose 166 H (74-99) mg/dL Assessment and Plan Assessment: Acute on chronic hypoxemic and hypercapnic respiratory failure, currently on Airvo, suspect secondary to an exacerbation of diastolic congestive heart failure and underlying obesity hypoventilation syndrome History of heart failure with preserved ejection fraction Severe hyperkalemia, resolved Acute kidney injury, recovered, creatinine 1.14 History obstructive sleep apnea, unable to tolerate CPAP Morbid obesity, with a BMI of 42.9 kg/m History of hyperlipidemia Hypertension History of trisomy 21 Plan: The patient was seen and evaluated Labs and medications reviewed Continued on Airvo high flow oxygen Current settings of 55 L and 60% FiO2 Continue to titrate down the FiO2 as tolerated Remains on oral Lasix Continue bronchodilators Heparin for DVT prophylaxis Crease his activity as tolerated Remains at 3 S. overflow patient We will continue to follow I have personally seen and examined the patient, performed the documentation and the assessment and plan as written. Number of minutes spent on the visit: 10 Dictation was produced using [employer] dictation software. Please excuse any gra mmatical, word or spelling errors.
--- NOTE | 2025-03-05 22:53 | P.PN ---
Subjective Progress Note Date: 03/05/25 Patient is a 49-year-old male with known history of Down syndrome obesity obesity hypoventilation syndrome on oxygen at [facility] of failure came in with hypoxemia patient was on BiPAP no high flow oxygen at this time. BNP is around 600 patient does have some pulm edema on the chest x-ray. Patient echo showed EF of around 60% possible diastolic dysfunction patient serum creatinine at baseline is within normal limits it is elevated to 1.76. Potassium was very high on admission , 7.4 which has come down to 5.9 after aggressive treatment of potassium. Patient is bit hypotensive as well patient was on lisinopril as well as Aldactone as an outpatient which are being held at this time patient is on IV Lasix 40 mg twice a day which is being continued. 02/26/2025 Patient eval today in the intensive care unit. He is lethargic. He continues on Airvo. He remains on IV Lasix. His labs have improved with a BUN of 44 creatinine 1.25 with sodium level 136 today. Chest x-ray does not show improved CHF. His potassium was also down to 5.0. 02/27/2025 Patient is evaluated today in the intensive care unit. Patient is more awake and alert. He continues on the airvo with difficutly weaning. Transitioned to oral lasix. Sodium level is 130, BUN of 38, creatinine 0.96. 02/28/2025 Patient is evaluated today in follow up in the ICU. Patient continues on the airvo with settings of 60/85. Oxygen saturations between 88-93%. He did not tolerate the 15L hi flow cannula today; oxygen saturations down to 70%. Continues on oral lasix twice daily. Sodium level better at 133. Patient is more obtunded today and felling asleep easily. Chest xray reveals cadiomegaly with bibasilar acute infiltrates and/or atelectasis. No significant change from one day earlier. 03/01/2025 Patient is evaluated today in the ICU. He continues to be more awake and alert. Chest xray reveals mild cardiomegaly, possible underlying COPD, and ongoing patchy mid and lower lung opacities without significant change. WBC 8.28, sodium 132, BUN 30, creatinine 1.03. Remains on airvo 60/70. 03/02/2025 Patient remains in the ICU. Continues on airvo with settings of 60/60. He has been more awake and alert. Saturations are slightly better at 93%. Chest xray reveals COPD with some improving CHF but with residual interstitial pulmonary edema. He has been pointing to his left chest wall with complaints of pain, although the pain is worse with palpitation likely musculoskeletal. CBC is essentially unremarkable, sodium level 133, potassium 4.1, BUN 25, creatinine 1.00. 03/03/2025 Patient evaluated today in the intensive care unit. He remains on airvo. He is asking to go home and wants to talk to "hubert" on the phone. Chest xray today reveals suspected continued CHF exacerbation and fluid over load state. He remains on oral lasix twice daily. proBNP f/u is 137. Sodium 134, potassium 3.8, BUN 18, creatinine 1.19. He denies any further reports of chest pain. Currently down to 55/50 on the airvo. 03/04/2025 Patient evaluated in the ICU. He continues on airvo; 55/70 with oxygen saturations in the 90s. Patient is more sleepy today. Chest xray today shows persistent bilateral mid to lower lung acute infiltrates and or edema. No significant change from one day earlier. Labs today reveal a white blood cell count of 8.91, hemoglobin 13.0, sodium level 137 potassium 4.0, BUN of 26 creatinine 1.22, procalcitonin level was less than 0.20. 03/05/2025 patient evaluated in the ICU; has been downgraded and pending bed on the medical floor. Remains on airvo oxygen support. He is awake alert and oriented. Family at the bedside. Remains on po lasix twice daily. Chest xray today reveals persistent bilateral mid to lower lung acute infiltrate and or edema. No significant change from one day earlier. Unable to complete review of systems PHYSICAL EXAMINATION: GENERAL: The patient is alert initially does not talk much, not in any acute distress. Obese HEENT: Pupils are round and equally reacting to light. EOMI. No scleral icterus. No conjunctival pallor. Normocephalic, atraumatic. No pharyngeal erythema. No thyromegaly. Enlarged tongue,. CARDIOVASCULAR: S1 and S2 present. No murmurs, rubs, or gallops. PULMONARY: Chest is clear to auscultation, no wheezing or crackles. ABDOMEN: Soft, nontender, nondistended, normoactive bowel sounds. No palpable organomegaly. MUSCULOSKELETAL: No joint swelling or deformity. EXTREMITIES: No cyanosis, clubbing, or pedal edema. NEUROLOGICAL: Gross neurological examination did not reveal any focal deficits. SKIN: No rashes. Assessment and plan - Acute hypoxic and possibly probably hypercapnic respiratory failure secondary to some pulmonary edema as well as obesity hypoventilation syndrome and chronic CO2 retention. - Acute renal failure: Probably prerenal azotemia from heart failure - Hyperkalemia secondary to acute renal failure Aldactone and lisinopril all of which are being held - Congestive heart failure preserved ejection fraction, chronic diastolic function with acute exacerbation - Hyperlipidemia - Obesity and obesity hypoventilation syndrome, sleep apnea on CPAP machine at home - Hypertension - Extensive seborrheic dermatitis DVT prophylaxis: Subcutaneous heparin Plan - Downgraded to the medical floor. - Patient is on high flow nasal cannula oxygen saturating well at this time - Airvo slowly being weaned as tolerated patient has been slow to respond - Patient was started on Lasix which will be continued close monitoring of the kidney function - Monitor renal function and electrolyes - Continue strict intake and output monitioring - ketoconazole shampoo for the crusting on the scalp and around ears - ac-hydrin lotion for the feet and lower legs. - Monitor electrolyes and renal function The impression and plan of care has been dictated by Deb Ortega, Nurse Practitioner as directed. Dr. Sarah MD I have performed a history and physical examination and medical decision making of this patient, discussed the same with the dictator, and agree with the dictators assessment and plan as written, documented as a scribe. Based on total visit time, I have performed more than 50% of this visit. Objective - Vital Signs Vital signs: Vital Signs Temp 98.8 F 03/05/25 20:00 Pulse 80 03/05/25 21:03 Resp 18 03/05/25 21:03 BP 94/50 03/05/25 20:00 Pulse Ox 89 L 03/05/25 20:51 FiO2 60 03/05/25 20:51 Intake & Output 03/05/25 03/05/25 03/06/25 06:59 18:59 06:59 Intake Total 500 120 Output Total 900 900 Balance -400 -780 Weight 117 kg Intake: Oral 500 120 Output: Urine 900 900 Other: Voiding Method Indwelling Catheter Indwelling Catheter Indwelling Catheter - Labs CBC & Chem 7: 03/05/25 02:45 03/05/25 02:45 Labs: Abnormal Lab Results - Last 24 Hours (Table) 03/05/25 03/05/25 Range/Units 02:45 02:45 RBC 3.96 L (4.40-5.60) 10*6/uL Hgb 12.0 L (13.0-17.0) g/dL Hct 39.4 L (39.6-50.0) % MCV 99.5 H (80.0-97.0) fL MCHC 30.5 L (32.0-37.0) g/dL Immature Gran # 0.77 H (0.00-0.04) 10*3/uL Sodium 136 L (137-145) mmol/L Chloride 92 L (98-107) mmol/L Carbon Dioxide 37 H (22-30) mmol/L BUN 28 H (9-20) mg/dL Glucose 166 H (74-99) mg/dL Assessment and Plan Time with Patient: Less than 30
--- NOTE | 2025-03-06 10:48 | P.PN ---
Subjective Progress Note Date: 03/06/25 Patient is a 49-year-old male with past medical history significant for Down syndrome, congestive heart failure, obstructive sleep apnea unable to tolerate CPAP, hypertension, hyperlipidemia, gastroesophageal reflux disease and previous episodes of aspiration. Patient was at his ECF, [facility], found in some respiratory distress. SpO2 was reading low in the 70s. Placed back on supplemental oxygen. I am told he chronically wears 3 L/min nasal cannula at bedtime. Did receive a dose of 40 mg IV Lasix at outside facility. Sent in the emergency department late last night on a nonrebreather. Did not tolerate noninvasive CPAP/BiPAP in the ER. He is currently on Airvo with settings 50 L and 90%. SpO2 recorded around 97%. Workup including a chest x-ray showing cardiomegaly, pulmonary vascular congestion, and probable bilateral pleural effusions. He did receive a additional dose of IV Lasix 20 mg. He was also found to be severely hyperkalemic, with a potassium of 7.4 treated with one half amp D50 W, 10 units regular insulin, 1 amp sodium bicarbonate, concentrated albuterol, and 10 g of Lokelma. VBG: pCO2 of 63, pH of 7.33. Remaining labs including a CBC: WBC count 7.5, hemoglobin 14.3, platelets 243. CMP: Sodium 134, potassium 7.4, chloride 94, serum bicarb 34, BUN 60, creatinine 1.85, glucose 229. LFTs unremarkable. Troponin less than 0.012. NT proBNP only 576. EKG, non-bradycardic, poor quality and will have to be repeated. Patient currently being evaluated in the trauma bay 1. He is awake and alert, unable to provide any further information. Apprehensive of care. Denies any pain. No recorded fevers. No coughing. Tachypneic. On Airvo with above-mentioned sett ings. He does have a chronic indwelling urinary catheter, and there is ample urine in the bag. Current vital signs: Temperature 98.1 F, heart rate 78 bpm, blood pressure 118/54 mmHg, SpO2 recorded at 97% on Airvo. Patient was seen today on 02/26/2025, patient remains in the ICU, remains on Airvo requiring FiO2 of 80% and flow of 60 L/min. His overall pulmonary status is marginal patient looks comfortable, not in any distress. Denies any shortness of breath, remains on diuretics and seems to be clinically improving. Chest x- ray today showed improved pulmonary vascular congestion and scattered infiltrates persist. CBC is relatively normal potassium is back to 5.0 renal profile significantly improved with BUN of 44 creatinine 1.25 Patient was seen today on 02/27/2025, remains in the ICU, on Airvo 90% FiO2 6 0 L flow, about the same, does not seem to be in any distress remains on Lasix 40 mg twice daily chest x-ray is steadily showing improvement in his pulmonary edema. WBC count is 9.3 hemoglobin 14.1 electrolytes are normal bicarb is 38 BUN is 38 creatinine 0.96 Seen today on 02/28/2025, remains in the ICU, remains on Airvo 85% and 60 L flow, patient seems to be doing well, his O2 saturation is up and down in the mid 80s up to the mid 90s, patient is clinically improving, his chest x-ray showed improvement in his pulmonary edema continues to have some bibasilar atelectasis. Patient remains on bronchodilators remains on diuretics, and the plan is to continue titrating his FiO2 down to the point that we could get him transferred out of the ICU to medical floor. WBC count today is 9.2 hemoglobin 13.9 electrolytes are normal bicarb is 39 BUN is 33 creatinine 0.96. The patient is seen today March 01, 2025 in follow-up in the intensive care unit. He is currently sitting up in bed. Awake and alert in no acute distress. He is still requiring Airvo high flow oxygen at 60 L and 80% FiO2. Chest x-ray continues to show mild cardiomegaly, possible underlying COPD, ongoing patchy mid and lower lung opacities without significant change. White count 8.2. Hemoglobin 13.0. Platelets 230. Sodium 132. Potassium 3.5. Bicarb 39. BUN 30. Creatinine 1.03. Glucose 180. He remains on. Remains on Lasix 40 mg twice daily. Heparin for DVT prophylaxis. Currently in a +135 mL balance. The patient is seen today March 02, 2025 in follow-up in the intensive care unit. He is awake and alert in no acute distress. Sitting up in bed. He is on Airvo high flow oxygen at 60 L and 70% FiO2. Gradually being weaned down. No worsening shortness of breath, cough or congestion. He has been afebrile. Hemodynamically stable. Chest x-rays shows evidence of COPD with improvement in the congestive heart failure with less interstitial pulmonary edema. White count 8.3. Hemoglobin 13.1. Platelets 237. Sodium 133. Potassium 4.1. Bicarb 43. BUN 25. Creatinine 1.0. Glucose 144. He remains on oral Lasix and Diamox. Heparin for DVT prophylaxis. Continued on bronchodilators. The patient is seen today March 03, 2025 in follow-up in the intensive care unit. He is sitting up in bed. Awake and alert in no acute distress. He is afebrile. Hemodynamically stable. Still requiring Airvo high flow oxygen at 60 L and 55% FiO2. He remains on DuoNeb inhalations. Heparin for DVT prophylaxis. Remains on oral diuretics. White count 7.6. Hemoglobin 12.8. Platelets 234. Sodium 134. Potassium 3.8. Bicarb 40. BUN 18. Creatinine 1.19. Glucose 109. Troponin negative. proBNP 137. Chest x-ray continues to show bibasilar opacities. The patient is seen today March 04, 2025 in follow-up in the intensive care unit. He is a 3 S. overflow patient. He is awake and alert in no acute distress. Sitting up in bed. Continued on Airvo high flow oxygen at 55 L and 70% FiO2. He had arterial blood gases revealed a PO2 of 77, pCO2 74 and a pH of 7.34. White count 8.9. Hemoglobin 13.0. Platelets 252. Sodium 137. Potassium 4.0. Bicarb 38. BUN 26. Creatinine 1.22. Glucose 113. He remains on DuoNeb inhalations. Continued on Lasix and Diamox. Heparin for DVT prophylaxis. The patient is seen today March 05, 2025 in follow-up in the intensive care unit. He remains a 3 S. overflow patient. He is awake and alert in no acute distress. Sitting up in bed. Remains on Airvo high flow oxygen at 55 L and 60% FiO2. No IV fluids. White count 9.8. Hemoglobin 12.0. Platelets 226. Sodium 136. Potassium 3.8. Bicarb 37. BUN 28. Creatinine 1.14. Glucose 166. Procalcitonin was negative at 0.20. He remains on DuoNeb inhalations. Continued on oral diuretics. Heparin for DVT prophylaxis. The patient is seen today March 06, 2025 in follow-up on the regular medical floor. He was transferred out of the intensive care unit yesterday. He is currently sitting up in bed having breakfast. He is feeding himself. He is encouraged to eat slowly and chew his food well. He remains on Airvo high flow oxygen at 40 L and 60% FiO2. He is continued on DuoNeb inhalations. Heparin for DVT prophylaxis. Remains on oral diuretics. He is making good urine. No new labs today. Objective - Vital Signs Vital signs: Vital Signs Temp 97.7 F 03/06/25 08:45 Pulse 76 03/06/25 08:48 Resp 20 03/06/25 08:45 BP 100/62 03/06/25 08:45 Pulse Ox 89 L 03/06/25 08:45 FiO2 60 03/06/25 08:45 Intake & Output 03/05/25 03/06/25 03/06/25 18:59 06:59 18:59 Intake Total 120 Output Total 900 1200 600 Balance -780 -1200 -600 Weight 119.5 kg Intake: Oral 120 Output: Urine 900 1200 600 Other: Voiding Method Indwelling Catheter Indwelling Catheter Indwelling Catheter - Exam GENERAL EXAM: Alert, 49-year-old male, sitting up having breakfast, on Airvo high flow oxygen at 40 L and 60% FiO2, in no apparent distress. HEAD: Normocephalic. Clinical features of Down's syndrome. EYES: Normal reaction of pupils, equal size. NOSE: Clear with pink turbinates. THROAT: No erythema or exudates. NECK: No masses, no JVD. CHEST: No chest wall deformity. LUNGS: Equal air entry with few scattered rhonchi, crackles in the bilateral bases. CVS: S1 and S2 normal with no audible murmur, regular rhythm. ABDOMEN: No hepatosplenomegaly, normal bowel sounds, no guarding or rigidity. SPINE: No scoliosis or deformity SKIN: No rashes. Diffuse seborrheic keratosis. CENTRAL NERVOUS SYSTEM: No focal deficits, tone is normal in all 4 extremities. EXTREMITIES: There is no peripheral edema. No clubbing, no cyanosis. Periph eral pulses are intact. - Labs CBC & Chem 7: 03/05/25 02:45 03/05/25 02:45 Assessment and Plan Assessment: Acute on chronic hypoxemic and hypercapnic respiratory failure, currently on Airvo, suspect secondary to an exacerbation of diastolic congestive heart failure and underlying obesity hypoventilation syndrome History of heart failure with preserved ejection fraction Severe hyperkalemia, resolved Acute kidney injury, recovered, creatinine 1.14 History obstructive sleep apnea, unable to tolerate CPAP Morbid obesity, with a BMI of 42.9 kg/m History of hyperlipidemia Hypertension History of trisomy 21 Plan: The patient was seen and evaluated Medications reviewed Continued on Airvo high flow oxygen Current settings of 40 L and 60% FiO2 Continue to titrate down the FiO2 as tolerated Remains on oral Lasix Continue bronchodilators Heparin for DVT prophylaxis Encouraged to eat slowly and chew carefully We will continue to follow I have personally seen and examined the patient, performed the documentation and the assessment and plan as written. Number of minutes spent on the visit: 10 Dictation was produced using [employer] dictation software. Please excuse any grammatical, word or spelling errors.
--- NOTE | 2025-03-06 12:14 | P.PN ---
Subjective Patient is seen for follow-up for acute kidney injury and hyperkalemia. Renal function has improved with serum creatinine at 1.1 mg/dL. Potassium at 3.8. No significant complaints today Maintained on oral Lasix Objective - Vital Signs Vital signs: Vital Signs Temp 97.7 F 03/06/25 08:45 Pulse 76 03/06/25 08:48 Resp 20 03/06/25 08:45 BP 100/62 03/06/25 08:45 Pulse Ox 89 L 03/06/25 08:45 FiO2 60 03/06/25 08:45 Intake & Output 03/05/25 03/06/25 03/06/25 18:59 06:59 18:59 Intake Total 120 Output Total 900 1200 600 Balance -780 -1200 -600 Weight 119.5 kg Intake: Oral 120 Output: Urine 900 1200 600 Other: Voiding Method Indwelling Catheter Indwelling Catheter Indwelling Catheter - Exam Patient is awake, comfortable, no acute distress Down syndrome facial features. Examination of the heart S1 and S2 Examination of the lungs shows bilateral breath sounds are heard Abdomen is soft nontender Examination of lower extremity shows no significant edema - Labs CBC & Chem 7: 03/05/25 02:45 03/05/25 02:45 Assessment and Plan Assessment: 1. Acute kidney injury, ischemic ATN from hypotension. Improved. UA shows small blood no protein. No urine retention. 2. Hyperkalemia associated with acute kidney injury in the setting of use of SHANNON inhibitors and Aldactone, improved. 3. Volume overload, improved 4. Acute CHF with preserved ejection fraction, improved 5. Down syndrome Plan: Continue oral Lasix Monitor potassium Continue Flomax.
[2025-03-06] MEDS: ZINC OXIDE PASTE (Z-GUARD) 1 APPLIC TOPICAL PRN (12:33)
--- NOTE | 2025-03-06 14:35 | P.PN ---
Subjective Progress Note Date: 03/06/25 Patient is a 49-year-old male with known history of Down syndrome obesity obesity hypoventilation syndrome on oxygen at [facility] of failure came in with hypoxemia patient was on BiPAP no high flow oxygen at this time. BNP is around 600 patient does have some pulm edema on the chest x-ray. Patient echo showed EF of around 60% possible diastolic dysfunction patient serum creatinine at baseline is within normal limits it is elevated to 1.76. Potassium was very high on admission , 7.4 which has come down to 5.9 after aggressive treatment of potassium. Patient is bit hypotensive as well patient was on lisinopril as well as Aldactone as an outpatient which are being held at this time patient is on IV Lasix 40 mg twice a day which is being continued. 02/26/2025 Patient eval today in the intensive care unit. He is lethargic. He continues on Airvo. He remains on IV Lasix. His labs have improved with a BUN of 44 creatinine 1.25 with sodium level 136 today. Chest x-ray does not show improved CHF. His potassium was also down to 5.0. 02/27/2025 Patient is evaluated today in the intensive care unit. Patient is more awake and alert. He continues on the airvo with difficutly weaning. Transitioned to oral lasix. Sodium level is 130, BUN of 38, creatinine 0.96. 02/28/2025 Patient is evaluated today in follow up in the ICU. Patient continues on the airvo with settings of 60/85. Oxygen saturations between 88-93%. He did not tolerate the 15L hi flow cannula today; oxygen saturations down to 70%. Continues on oral lasix twice daily. Sodium level better at 133. Patient is more obtunded today and felling asleep easily. Chest xray reveals cadiomegaly with bibasilar acute infiltrates and/or atelectasis. No significant change from one day earlier. 03/01/2025 Patient is evaluated today in the ICU. He continues to be more awake and alert. Chest xray reveals mild cardiomegaly, possible underlying COPD, and ongoing patchy mid and lower lung opacities without significant change. WBC 8.28, sodium 132, BUN 30, creatinine 1.03. Remains on airvo 60/70. 03/02/2025 Patient remains in the ICU. Continues on airvo with settings of 60/60. He has been more awake and alert. Saturations are slightly better at 93%. Chest xray reveals COPD with some improving CHF but with residual interstitial pulmonary edema. He has been pointing to his left chest wall with complaints of pain, although the pain is worse with palpitation likely musculoskeletal. CBC is essentially unremarkable, sodium level 133, potassium 4.1, BUN 25, creatinine 1.00. 03/03/2025 Patient evaluated today in the intensive care unit. He remains on airvo. He is asking to go home and wants to talk to "hubert" on the phone. Chest xray today reveals suspected continued CHF exacerbation and fluid over load state. He remains on oral lasix twice daily. proBNP f/u is 137. Sodium 134, potassium 3.8, BUN 18, creatinine 1.19. He denies any further reports of chest pain. Currently down to 55/50 on the airvo. 03/04/2025 Patient evaluated in the ICU. He continues on airvo; 55/70 with oxygen saturations in the 90s. Patient is more sleepy today. Chest xray today shows persistent bilateral mid to lower lung acute infiltrates and or edema. No significant change from one day earlier. Labs today reveal a white blood cell count of 8.91, hemoglobin 13.0, sodium level 137 potassium 4.0, BUN of 26 creatinine 1.22, procalcitonin level was less than 0.20. 03/05/2025 patient evaluated in the ICU; has been downgraded and pending bed on the medical floor. Remains on airvo oxygen support. He is awake alert and oriented. Family at the bedside. Remains on po lasix twice daily. Chest xray today reveals persistent bilateral mid to lower lung acute infiltrate and or edema. No significant change from one day earlier. 03/06/2025 Patient is evaluated in follow-up on the medical floor. He is slow to wean off the Airvo and continues on 40/60. Oxygen saturations of 92%. Remains on oral Lasix twice daily. Unable to complete review of systems PHYSICAL EXAMINATION: GENERAL: The patient is alert initially does not talk much, not in any acute distress. Obese HEENT: Pupils are round and equally reacting to light. EOMI. No scleral icterus. No conjunctival pallor. Normocephalic, atraumatic. No pharyngeal erythema. No thyromegaly. Enlarged tongue,. CARDIOVASCULAR: S1 and S2 present. No murmurs, rubs, or gallops. PULMONARY: Chest is clear to auscultation, no wheezing or crackles. ABDOMEN: Soft, nontender, nondistended, normoactive bowel sounds. No palpable organomegaly. MUSCULOSKELETAL: No joint swelling or deformity. EXTREMITIES: No cyanosis, clubbing, or pedal edema. NEUROLOGICAL: Gross neurological examination did not reveal any focal deficits. SKIN: No rashes. Assessment and plan - Acute hypoxic and possibly probably hypercapnic respiratory failure secondary to some pulmonary edema as well as obesity hypoventilation syndrome and chronic CO2 retention. - Acute renal failure: Probably prerenal azotemia from heart failure - Hyperkalemia secondary to acute renal failure Aldactone and lisinopril all of which are being held - Congestive heart failure preserved ejection fraction, chronic diastolic f unction with acute exacerbation - Hyperlipidemia - Obesity and obesity hypoventilation syndrome, sleep apnea on CPAP machine at home - Hypertension - Extensive seborrheic dermatitis DVT prophylaxis: Subcutaneous heparin Plan - Downgraded to the medical floor. - Patient is on high flow nasal cannula oxygen saturating well at this time - Airvo slowly being weaned as tolerated patient has been slow to respond - Patient was started on Lasix which will be continued close monitoring of the kidney function - Monitor renal function and electrolyes - Continue strict intake and output monitioring - ketoconazole shampoo for the crusting on the scalp and around ears - ac-hydrin lotion for the feet and lower legs. - Monitor electrolyes and renal function The impression and plan of care has been dictated by Deb Ortega, Nurse Practitioner as directed. Dr. Sarah MD I have performed a history and physical examination and medical decision making of this patient, discussed the same with the dictator, and agree with the dictators assessment and plan as written, documented as a scribe. Based on total visit time, I have performed more than 50% of this visit. Objective - Vital Signs Vital signs: Vital Signs Temp 99.6 F 03/06/25 11:35 Pulse 84 03/06/25 12:20 Resp 18 03/06/25 11:35 BP 96/59 03/06/25 11:35 Pulse Ox 92 L 03/06/25 11:35 FiO2 60 03/06/25 12:11 Intake & Output 03/05/25 03/06/25 03/06/25 18:59 06:59 18:59 Intake Total 120 Output Total 900 1200 600 Balance -780 -1200 -600 Weight 119.5 kg Intake: Oral 120 Output: Urine 900 1200 600 Other: Voiding Method Indwelling Catheter Indwelling Catheter Indwelling Catheter - Labs CBC & Chem 7: 03/05/25 02:45 03/05/25 02:45 Assessment and Plan Time with Patient: Less than 30
--- NOTE | 2025-03-07 09:24 | P.PN ---
Subjective Progress Note Date: 03/07/25 Principal diagnosis: Respiratory failure. Patient is a 49-year-old male with past medical history significant for Down syndrome, congestive heart failure, obstructive sleep apnea unable to tolerate CPAP, hypertension, hyperlipidemia, gastroesophageal reflux disease and previous episodes of aspiration. Patient was at his ECF, [facility], found in some respiratory distress. SpO2 was reading low in the 70s. Placed back on supplemental oxygen. I am told he chronically wears 3 L/min nasal cannula at bedtime. Did receive a dose of 40 mg IV Lasix at outside facility. Sent in the emergency department late last night on a nonrebreather. Did not tolerate noninvasive CPAP/BiPAP in the ER. He is currently on Airvo with settings 50 L and 90%. SpO2 recorded around 97%. Workup including a chest x-ray showing cardiomegaly, pulmonary vascular congestion, and probable bilateral pleural effusions. He did receive a additional dose of IV Lasix 20 mg. He was also found to be severely hyperkalemic, with a potassium of 7.4 treated with one half amp D50 W, 10 units regular insulin, 1 amp sodium bicarbonate, concentrated albuterol, and 10 g of Lokelma. VBG: pCO2 of 63, pH of 7.33. Remaining labs including a CBC: WBC count 7.5, hemoglobin 14.3, platelets 243. CMP: Sodium 134, potassium 7.4, chloride 94, serum bicarb 34, BUN 60, creatinine 1.85, glucose 229. LFTs unremarkable. Troponin less than 0.012. NT proBNP only 576. EKG, non-bradycardic, poor quality and will have to be repeated. Patient currently being evaluated in the trauma bay 1. He is awake and alert, unable to provide any further information. Apprehensive of care. Denies any pain. No recorded fevers. No coughing. Tachypneic. On Airvo with above-mentioned settings. He does have a chronic indwelling urinary catheter, and there is ample urine in the bag. Current vital signs: Temperature 98.1 F, heart rate 78 bpm, blood pressure 118/54 mmHg, SpO2 recorded at 97% on Airvo. Patient was seen today on 02/26/2025, patient remains in the ICU, remains on Airvo requiring FiO2 of 80% and flow of 60 L/min. His overall pulmonary status is marginal patient looks comfortable, not in any distress. Denies any shortness of breath, remains on diuretics and seems to be clinically improving. Chest x- ray today showed improved pulmonary vascular congestion and scattered infiltrates persist. CBC is relatively normal potassium is back to 5.0 renal profile significantly improved with BUN of 44 creatinine 1.25 Patient was seen today on 02/27/2025, remains in the ICU, on Airvo 90% FiO2 6 0 L flow, about the same, does not seem to be in any distress remains on Lasix 40 mg twice daily chest x-ray is steadily showing improvement in his pulmonary edema. WBC count is 9.3 hemoglobin 14.1 electrolytes are normal bicarb is 38 BUN is 38 creatinine 0.96 Seen today on 02/28/2025, remains in the ICU, remains on Airvo 85% and 60 L flow, patient seems to be doing well, his O2 saturation is up and down in the mid 80s up to the mid 90s, patient is clinically improving, his chest x-ray showed improvement in his pulmonary edema continues to have some bibasilar atelectasis. Patient remains on bronchodilators remains on diuretics, and the plan is to continue titrating his FiO2 down to the point that we could get him transferred out of the ICU to medical floor. WBC count today is 9.2 hemoglobin 13.9 electrolytes are normal bicarb is 39 BUN is 33 creatinine 0.96. The patient is seen today March 01, 2025 in follow-up in the intensive care unit. He is currently sitting up in bed. Awake and alert in no acute distress. He is still requiring Airvo high flow oxygen at 60 L and 80% FiO2. Chest x-ray co ntinues to show mild cardiomegaly, possible underlying COPD, ongoing patchy mid and lower lung opacities without significant change. White count 8.2. Hemoglobin 13.0. Platelets 230. Sodium 132. Potassium 3.5. Bicarb 39. BUN 30. Creatinine 1.03. Glucose 180. He remains on. Remains on Lasix 40 mg twice daily. Heparin for DVT prophylaxis. Currently in a +135 mL balance. The patient is seen today March 02, 2025 in follow-up in the intensive care unit. He is awake and alert in no acute distress. Sitting up in bed. He is on Airvo high flow oxygen at 60 L and 70% FiO2. Gradually being weaned down. No worsening shortness of breath, cough or congestion. He has been afebrile. Hemodynamically stable. Chest x-rays shows evidence of COPD with improvement in the congestive heart failure with less interstitial pulmonary edema. White count 8.3. Hemoglobin 13.1. Platelets 237. Sodium 133. Potassium 4.1. Bicarb 43. BUN 25. Creatinine 1.0. Glucose 144. He remains on oral Lasix and Diamox. Heparin for DVT prophylaxis. Continued on bronchodilators. The patient is seen today March 03, 2025 in follow-up in the intensive care unit. He is sitting up in bed. Awake and alert in no acute distress. He is afebrile. Hemodynamically stable. Still requiring Airvo high flow oxygen at 60 L and 55% FiO2. He remains on DuoNeb inhalations. Heparin for DVT prophylaxis. Remains on oral diuretics. White count 7.6. Hemoglobin 12.8. Platelets 234. Sodium 134. Potassium 3.8. Bicarb 40. BUN 18. Creatinine 1.19. Glucose 109. Troponin negative. proBNP 137. Chest x-ray continues to show bibasilar opacities. The patient is seen today March 04, 2025 in follow-up in the intensive care unit. He is a 3 S. overflow patient. He is awake and alert in no acute distress. Sitting up in bed. Continued on Airvo high flow oxygen at 55 L and 70% FiO2. He had arterial blood gases revealed a PO2 of 77, pCO2 74 and a pH of 7.34. White count 8.9. Hemoglobin 13.0. Platelets 252. Sodium 137. Potassium 4.0. Bicarb 38. BUN 26. Creatinine 1.22. Glucose 113. He remains on DuoNeb inhalations. Continued on Lasix and Diamox. Heparin for DVT prophylaxis. The patient is seen today March 05, 2025 in follow-up in the intensive care unit. He remains a 3 S. overflow patient. He is awake and alert in no acute distress. Sitting up in bed. Remains on Airvo high flow oxygen at 55 L and 60% FiO2. No IV fluids. White count 9.8. Hemoglobin 12.0. Platelets 226. Sodium 136. Potassium 3.8. Bicarb 37. BUN 28. Creatinine 1.14. Glucose 166. Procalcitonin was negative at 0.20. He remains on DuoNeb inhalations. Continued on oral diuretics. Heparin for DVT prophylaxis. The patient is seen today March 06, 2025 in follow-up on the regular medical floor. He was transferred out of the intensive care unit yesterday. He is currently sitting up in bed having breakfast. He is feeding himself. He is encouraged to eat slowly and chew his food well. He remains on Airvo high flow oxygen at 40 L and 60% FiO2. He is continued on DuoNeb inhalations. Heparin for DVT prophylaxis. Remains on oral diuretics. He is making good urine. No new labs today. Progress note dated March 07, 2025. 49-year-old male seen today in room 384. The patient is continuing on Airvo, with settings of 40 L/min and an FiO2 of 55%. The patient is not on any IV fluids currently. He appears to be relatively comfortable. He was transferred out of the intensive care unit, 2 days ago. No new laboratory data today. He seems relatively comfortable. He is awake and alert. Objective - Vital Signs Vital signs: Vital Signs Temp 98.3 F 03/07/25 03:14 Pulse 72 03/07/25 07:59 Resp 18 03/07/25 03:14 BP 102/55 03/07/25 03:14 Pulse Ox 90 L 03/07/25 07:52 FiO2 55 03/07/25 07:52 Intake & Output 03/06/25 03/07/25 03/07/25 18:59 06:59 18:59 Intake Total 600 Output Total 1575 650 Balance -975 -650 Weight 119.5 kg Intake: Oral 600 Output: Urine 1575 650 Other: Voiding Method Indwelling Catheter Indwelling Catheter # Voids 1 - Exam No acute distress, oriented 3. Currently on Airvo. HEENT examination is grossly unremarkable. Mucous membranes are moist. No oral lesions. Airvo cannula in place. Neck supple. Full range of motion. No adenopathy thyromegaly or neck vein distention. Cardiovascular examination reveals regular rhythm rate. S1-S2 normal. No S3 or S4. No discernible murmur noted. Lungs reveal bilateral scattered rhonchi. No wheezes. No crackles. Breath sounds equal bilaterally. Abdomen soft bowel sounds are heard. No masses or tenderness. Extremities are intact. No cyanosis clubbing or edema. Skin with seborrheic keratosis. Neurologic examination is brief but nonfocal. - Labs CBC & Chem 7: 03/05/25 02:45 03/05/25 02:45 Assessment and Plan Assessment: Acute on chronic hypoxemic and hypercapnic respiratory failure, currently on Airvo, suspect secondary to an exacerbation of diastolic congestive heart failure and underlying obesity hypoventilation syndrome. History of heart failure with preserved ejection fraction. Severe hyperkalemia, resolved. Acute kidney injury, recovered. History obstructive sleep apnea, unable to tolerate CPAP. Morbid obesity, with a BMI of 42.9 kg/m. History of hyperlipidemia. Hypertension. History of trisomy 21 (Down syndrome). Plan: Plan dated March 07, 2025. The patient is seen in room 384. The patient appears to be doing better. Each day, he seems a bit more comfortable. He is awake and alert. He continues on Airvo. Settings today include 40 L/min with an FiO2 of 55%. He continues on bronchodilators, Lasix, and DVT prophylaxis. Labs, x-rays, and all medications are reviewed. We will continue to follow the patient, make recommendations. Prognosis is guarded. Dictation was produced using [employer] software. Please excuse any grammatical, word or spelling errors. Time with Patient: Less than 30
--- NOTE | 2025-03-07 10:27 | P.PN ---
Subjective Patient is seen for follow-up for acute kidney injury and hyperkalemia. Renal function has improved with serum creatinine at 1.1 mg/dL. Potassium at 3.8. Complaining of abdominal discomfort. Maintained on regimen for constipation. Maintained on oral Lasix Objective - Vital Signs Vital signs: Vital Signs Temp 98.3 F 03/07/25 03:14 Pulse 72 03/07/25 07:59 Resp 18 03/07/25 03:14 BP 102/55 03/07/25 03:14 Pulse Ox 90 L 03/07/25 07:52 FiO2 55 03/07/25 07:52 Intake & Output 03/06/25 03/07/25 03/07/25 18:59 06:59 18:59 Intake Total 600 Output Total 1575 650 Balance -975 -650 Weight 119.5 kg Intake: Oral 600 Output: Urine 1575 650 Other: Voiding Method Indwelling Catheter Indwelling Catheter # Voids 1 - Exam Patient is awake, comfortable, no acute distress Down syndrome facial features. Examination of the heart S1 and S2 Examination of the lungs shows bilateral breath sounds are heard Abdomen is soft nontender Examination of lower extremity shows no significant edema - Labs CBC & Chem 7: 03/05/25 02:45 03/05/25 02:45 Assessment and Plan Assessment: 1. Acute kidney injury, ischemic ATN from hypotension. Improved. UA shows small blood no protein. No urine retention. 2. Hyperkalemia associated with acute kidney injury in the setting of use of SHANNON inhibitors and Aldactone, improved. 3. Volume overload, improved 4. Acute CHF with preserved ejection fraction, improved 5. Down syndrome 6. Constipation Plan: Continue oral Lasix Check labs today Continue Flomax.
[2025-03-07 11:11] LABS: African American GFR (CKD) >90 (>60 ml/min/1.73 sqM); Anion Gap 3 mmol/L; Blood Urea Nitrogen 23 mg/dL (9-20); Calcium 8.8 mg/dL (8.4-10.2); Carbon Dioxide 39 mmol/L (22-30); Chloride 93 mmol/L (98-107); Glucose 147 mg/dL (74-99); Non-African American GFR(CKD) >90 (>60 ml/min/1.73 sqM); Potassium 3.5 mmol/L (3.5-5.1); Sodium 135 mmol/L (137-145)
[2025-03-07] MEDS: LIDOCAINE 2% URO-JET JELLY 5 ML KIT URETHRAL ONE (16:02)
--- NOTE | 2025-03-07 23:03 | P.PN ---
Subjective Progress Note Date: 03/07/25 Patient is a 49-year-old male with known history of Down syndrome obesity obesity hypoventilation syndrome on oxygen at [facility] of failure came in with hypoxemia patient was on BiPAP no high flow oxygen at this time. BNP is around 600 patient does have some pulm edema on the chest x-ray. Patient echo showed EF of around 60% possible diastolic dysfunction patient serum creatinine at baseline is within normal limits it is elevated to 1.76. Potassium was very high on admission , 7.4 which has come down to 5.9 after aggressive treatment of potassium. Patient is bit hypotensive as well patient was on lisinopril as well as Aldactone as an outpatient which are being held at this time patient is on IV Lasix 40 mg twice a day which is being continued. 02/26/2025 Patient eval today in the intensive care unit. He is lethargic. He continues on Airvo. He remains on IV Lasix. His labs have improved with a BUN of 44 creatinine 1.25 with sodium level 136 today. Chest x-ray does not show improved CHF. His potassium was also down to 5.0. 02/27/2025 Patient is evaluated today in the intensive care unit. Patient is more awake and alert. He continues on the airvo with difficutly weaning. Transitioned to oral lasix. Sodium level is 130, BUN of 38, creatinine 0.96. 02/28/2025 Patient is evaluated today in follow up in the ICU. Patient continues on the airvo with settings of 60/85. Oxygen saturations between 88-93%. He did not tolerate the 15L hi flow cannula today; oxygen saturations down to 70%. Continues on oral lasix twice daily. Sodium level better at 133. Patient is more obtunded today and felling asleep easily. Chest xray reveals cadiomegaly with bibasilar acute infiltrates and/or atelectasis. No significant change from one day earlier. 03/01/2025 Patient is evaluated today in the ICU. He continues to be more awake and alert. Chest xray reveals mild cardiomegaly, possible underlying COPD, and ongoing patchy mid and lower lung opacities without significant change. WBC 8.28, sodium 132, BUN 30, creatinine 1.03. Remains on airvo 60/70. 03/02/2025 Patient remains in the ICU. Continues on airvo with settings of 60/60. He has been more awake and alert. Saturations are slightly better at 93%. Chest xray reveals COPD with some improving CHF but with residual interstitial pulmonary edema. He has been pointing to his left chest wall with complaints of pain, although the pain is worse with palpitation likely musculoskeletal. CBC is essentially unremarkable, sodium level 133, potassium 4.1, BUN 25, creatinine 1.00. 03/03/2025 Patient evaluated today in the intensive care unit. He remains on airvo. He is asking to go home and wants to talk to "hubert" on the phone. Chest xray today reveals suspected continued CHF exacerbation and fluid over load state. He remains on oral lasix twice daily. proBNP f/u is 137. Sodium 134, potassium 3.8, BUN 18, creatinine 1.19. He denies any further reports of chest pain. Currently down to 55/50 on the airvo. 03/04/2025 Patient evaluated in the ICU. He continues on airvo; 55/70 with oxygen saturations in the 90s. Patient is more sleepy today. Chest xray today shows persistent bilateral mid to lower lung acute infiltrates and or edema. No significant change from one day earlier. Labs today reveal a white blood cell count of 8.91, hemoglobin 13.0, sodium level 137 potassium 4.0, BUN of 26 creatinine 1.22, procalcitonin level was less than 0.20. 03/05/2025 patient evaluated in the ICU; has been downgraded and pending bed on the medical floor. Remains on airvo oxygen support. He is awake alert and oriented. Family at the bedside. Remains on po lasix twice daily. Chest xray today reveals persistent bilateral mid to lower lung acute infiltrate and or edema. No significant change from one day earlier. 03/06/2025 Patient is evaluated in follow-up on the medical floor. He is slow to wean off the Airvo and continues on 40/60. Oxygen saturations of 92%. Remains on oral Lasix twice daily. 03/07/2025 Patient evaluated today in follow up. Resting comfortably with no acute complaints at this time. 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 Sodium 135, potassium 3.5, BUN 23, creatinine 0.71. Airvo at 40/50 with oxygen saturations of 95%. Unable to complete review of systems PHYSICAL EXAMINATION: GENERAL: The patient is alert initially does not talk much, not in any acute distress. Obese HEENT: Pupils are round and equally reacting to light. EOMI. No scleral icterus. No conjunctival pallor. Normocephalic, atraumatic. No pharyngeal erythema. No thyromegaly. Enlarged tongue,. CARDIOVASCULAR: S1 and S2 present. No murmurs, rubs, or gallops. PULMONARY: Chest is clear to auscultation, no wheezing or crackles. ABDOMEN: Soft, nontender, nondistended, normoactive bowel sounds. No palpable organomegaly. MUSCULOSKELETAL: No joint swelling or deformity. EXTREMITIES: No cyanosis, clubbing, or pedal edema. NEUROLOGICAL: Gross neurological examination did not reveal any focal deficits. SKIN: No rashes. Assessment and plan - Acute hypoxic and possibly probably hypercapnic respiratory failure secondary to some pulmonary edema as well as obesity hypoventilation syndrome and chronic CO2 retention. - Acute renal failure: Probably prerenal azotemia from heart failure - Hyperkalemia secondary to acute renal failure Aldactone and lisinopril all of which are being held - Congestive heart failure preserved ejection fraction, chronic diastolic function with acute exacerbation - Hyperlipidemia - Obesity and obesity hypoventilation syndrome, sleep apnea on CPAP machine at home - Hypertension - Extensive seborrheic dermatitis DVT prophylaxis: Subcutaneous heparin Plan - Downgraded to the medical floor. - Patient is on high flow nasal cannula oxygen saturating well at this time - Airvo slowly being weaned as tolerated patient has been slow to respond - Patient was started on Lasix which will be continued close monitoring of the kidney function - Monitor renal function and electrolyes - Continue strict intake and output monitioring - ketoconazole shampoo for the crusting on the scalp and around ears - ac-hydrin lotion for the feet and lower legs. - Monitor electrolyes and renal function The impression and plan of care has been dictated by Deb Ortega, Nurse Practitioner as directed. Dr. Sarah MD I have performed a history and physical examination and medical decision making of this patient, discussed the same with the dictator, and agree with the dictators assessment and plan as written, documented as a scribe. Based on total visit time, I have performed more than 50% of this visit. Objective - Vital Signs Vital signs: Vital Signs Temp 98.3 F 03/07/25 03:14 Pulse 73 03/07/25 03:14 Resp 18 03/07/25 03:14 BP 102/55 03/07/25 03:14 Pulse Ox 90 L 03/07/25 03:55 FiO2 55 03/07/25 03:55 Intake & Output 03/06/25 03/07/25 03/07/25 18:59 06:59 18:59 Intake Total 600 Output Total 1575 650 Balance -975 -650 Weight 119.5 kg Intake: Oral 600 Output: Urine 1575 650 Other: Voiding Method Indwelling Catheter Indwelling Catheter # Voids 1 - Labs CBC & Chem 7: 03/05/25 02:45 03/07/25 10:00 Assessment and Plan Time with Patient: Less than 30
[2025-03-08] MEDS: CLOTRIMAZOLE 1% CREAM 30 GM TUBE TOPICAL SCH (08:25)
--- NOTE | 2025-03-08 11:11 | XR ---
EXAMINATION TYPE: XR chest 1V DATE OF EXAM: 03/08/2025 11:06 AM COMPARISON: Chest radiographs from 03/04/2025. CLINICAL INDICATION: Male, 49 years old with history of hypoxia; [facility] TECHNIQUE: XR chest 1V Frontal view of the chest. FINDINGS: Lungs/Pleura: Multifocal airspace opacities. No evidence of pneumothorax or pleural effusion. Pulmonary vascularity: Unremarkable. Heart/mediastinum: Cardiomediastinal silhouette is unremarkable. Musculoskeletal: No acute osseous pathology. IMPRESSION: Multifocal airspace opacities concerning for pneumonia. [facility], , 03/08/2025 11:09 AM
--- NOTE | 2025-03-08 12:29 | P.PN ---
Subjective Patient is seen for follow-up for acute kidney injury and hyperkalemia. Renal function has improved with serum creatinine at 0.7 today Maintained on oral Lasix No complaints today Objective - Vital Signs Vital signs: Vital Signs Temp 97.9 F 03/08/25 08:00 Pulse 72 03/08/25 12:24 Resp 21 03/08/25 08:00 BP 114/70 03/08/25 08:00 Pulse Ox 91 L 03/08/25 09:58 FiO2 48 03/08/25 12:14 Intake & Output 03/07/25 03/08/25 03/08/25 18:59 06:59 18:59 Intake Total 10 240 Output Total 850 1450 225 Balance -850 -1440 15 Weight 119.5 kg Intake: IV 10 Invasive Line 6 10 Oral 240 Output: Urine 850 1450 225 Other: Voiding Method Indwelling Catheter Indwelling Catheter Indwelling Catheter - Exam Patient is awake, comfortable, no acute distress Down syndrome facial features. Examination of the heart S1 and S2 Examination of the lungs shows bilateral breath sounds are heard Abdomen is soft nontender Examination of lower extremity shows no significant edema - Labs CBC & Chem 7: 03/05/25 02:45 03/07/25 10:00 Assessment and Plan Assessment: 1. Acute kidney injury, ischemic ATN from hypotension. Improved. UA shows small blood no protein. No urine retention. 2. Hyperkalemia associated with acute kidney injury in the setting of use of SHANNON inhibitors and Aldactone, improved. 3. Volume overload, improved 4. Acute CHF with preserved ejection fraction, improved 5. Down syndrome 6. Constipation Plan: Continue oral Lasix Continue Flomax.
--- NOTE | 2025-03-08 13:34 | P.PN ---
Subjective Progress Note Date: 03/08/25 On 03/08/2025, the patient is being seen for a follow-up. The patient is still in acute hypoxic kar failure currently on Airvo 40 L with FiO2 of 50%. A follow-up chest x-ray was done today and the patient was found to have multifocal airspace opacities. No evidence of any pleural effusion. No evidence of pneumothorax. The patient currently is on no antibiotics. No sputum samples are available. The white cell count is at 9.8 with a hemoglobin 12 from 03/05/2025. His previous blood gas was also consistent with acute on chronic hypoxic and hypercapnic respiratory failure. This was done while the patient was on a BiPAP. Most recent electrolytes show a serum bicarb of 39, BUN 23 with a creatinine of 0.7. The patient is on DuoNeb updrafts. The patient is on Lasix 40 mg p.o. twice a day. The fluid balance is -2.2 L over the past 24 hours. His echocardiogram from 02/25/2025 showed a preserved LV function with an ejection fraction of 60 to 65%, no significant valvular heart disease. Overall chest x-ray findings have been essentially unchanged since his admission. Objective - Vital Signs Vital signs: Vital Signs Temp 97.9 F 03/08/25 08:00 Pulse 73 03/08/25 10:07 Resp 21 03/08/25 08:00 BP 114/70 03/08/25 08:00 Pulse Ox 91 L 03/08/25 09:58 FiO2 48 03/08/25 09:58 Intake & Output 03/07/25 03/08/25 03/08/25 18:59 06:59 18:59 Intake Total 10 240 Output Total 850 1450 225 Balance -850 -1440 15 Weight 119.5 kg Intake: IV 10 Invasive Line 6 10 Oral 240 Output: Urine 850 1450 225 Other: Voiding Method Indwelling Catheter Indwelling Catheter Indwelling Catheter - Exam No acute distress, oriented 3. Currently on Airvo, 40 L with FiO2 of 49%. He is a trisomy 21 with typical Down's features. Body mass index 48.2. HEENT examination is grossly unremarkable. Mucous membranes are moist. No oral lesions. Airvo cannula in place. Neck supple. Full range of motion. No adenopathy thyromegaly or neck vein distention. Cardiovascular examination reveals regular rhythm rate. S1-S2 normal. No S3 or S4. No discernible murmur noted. Lungs reveal bilateral scattered rhonchi. No wheezes. No crackles. Breath sounds equal bilaterally. Abdomen soft bowel sounds are heard. No masses or tenderness. Extremities are intact. No cyanosis clubbing or edema. Skin with seborrheic keratosis. Neurologic examination is brief but nonfocal. - Labs CBC & Chem 7: 03/05/25 02:45 03/07/25 10:00 Labs: Abnormal Lab Results - Last 24 Hours (Table) 03/07/25 Range/Units 10:00 Sodium 135 L (137-145) mmol/L Chloride 93 L (98-107) mmol/L Carbon Dioxide 39 H (22-30) mmol/L BUN 23 H (9-20) mg/dL Glucose 147 H (74-99) mg/dL Assessment and Plan Plan: Acute on chronic hypoxemic and hypercapnic respiratory failure, currently on A irvo, suspect secondary to an exacerbation of diastolic congestive heart failure and underlying obesity hypoventilation syndrome. The patient continues to be hypoxic on Airvo at 40 L and FiO2 49%. Chest x-ray is consistent with multifocal patchy airspace disease. Rule out interstitial edema. Rule out pneumonia. CHF with preserved LV function, no valvular abnormalities Severe hyperkalemia, resolved Acute kidney injury, recovered, nephrology on the case History obstructive sleep apnea, unable to tolerate CPAP Morbid obesity, with a BMI of 45.2 kg/m History of hyperlipidemia Hypertension History of trisomy 21 Plan: Continued on Airvo high flow oxygen Current settings of 40 L and 60% FiO2 Continue to titrate down the FiO2 as tolerated Remains on oral Lasix, still in negative fluid balance. Consider intensifying diuresis if no improvement in his oxygenation. Continue bronchodilators Heparin for DVT prophylaxis Encouraged to eat slowly and chew carefully We will continue to follow Time with Patient: Greater than 30
--- NOTE | 2025-03-08 17:24 | P.PN ---
Subjective Progress Note Date: 03/08/25 Patient is a 49-year-old male with known history of Down syndrome obesity obesity hypoventilation syndrome on oxygen at [facility] of failure came in with hypoxemia patient was on BiPAP no high flow oxygen at this time. BNP is around 600 patient does have some pulm edema on the chest x-ray. Patient echo showed EF of around 60% possible diastolic dysfunction patient serum creatinine at baseline is within normal limits it is elevated to 1.76. Potassium was very high on admission , 7.4 which has come down to 5.9 after aggressive treatment of potassium. Patient is bit hypotensive as well patient was on lisinopril as well as Aldactone as an outpatient which are being held at this time patient is on IV Lasix 40 mg twice a day which is being continued. 02/26/2025 Patient eval today in the intensive care unit. He is lethargic. He continues on Airvo. He remains on IV Lasix. His labs have improved with a BUN of 44 creatinine 1.25 with sodium level 136 today. Chest x-ray does not show improved CHF. His potassium was also down to 5.0. 02/27/2025 Patient is evaluated today in the intensive care unit. Patient is more awake and alert. He continues on the airvo with difficutly weaning. Transitioned to oral lasix. Sodium level is 130, BUN of 38, creatinine 0.96. 02/28/2025 Patient is evaluated today in follow up in the ICU. Patient continues on the airvo with settings of 60/85. Oxygen saturations between 88-93%. He did not tolerate the 15L hi flow cannula today; oxygen saturations down to 70%. Continues on oral lasix twice daily. Sodium level better at 133. Patient is more obtunded today and felling asleep easily. Chest xray reveals cadiomegaly with bibasilar acute infiltrates and/or atelectasis. No significant change from one day earlier. 03/01/2025 Patient is evaluated today in the ICU. He continues to be more awake and alert. Chest xray reveals mild cardiomegaly, possible underlying COPD, and ongoing patchy mid and lower lung opacities without significant change. WBC 8.28, sodium 132, BUN 30, creatinine 1.03. Remains on airvo 60/70. 03/02/2025 Patient remains in the ICU. Continues on airvo with settings of 60/60. He has been more awake and alert. Saturations are slightly better at 93%. Chest xray reveals COPD with some improving CHF but with residual interstitial pulmonary edema. He has been pointing to his left chest wall with complaints of pain, although the pain is worse with palpitation likely musculoskeletal. CBC is essentially unremarkable, sodium level 133, potassium 4.1, BUN 25, creatinine 1.00. 03/03/2025 Patient evaluated today in the intensive care unit. He remains on airvo. He is asking to go home and wants to talk to "hubert" on the phone. Chest xray today reveals suspected continued CHF exacerbation and fluid over load state. He remains on oral lasix twice daily. proBNP f/u is 137. Sodium 134, potassium 3.8, BUN 18, creatinine 1.19. He denies any further reports of chest pain. Currently down to 55/50 on the airvo. 03/04/2025 Patient evaluated in the ICU. He continues on airvo; 55/70 with oxygen saturations in the 90s. Patient is more sleepy today. Chest xray today shows persistent bilateral mid to lower lung acute infiltrates and or edema. No significant change from one day earlier. Labs today reveal a white blood cell count of 8.91, hemoglobin 13.0, sodium level 137 potassium 4.0, BUN of 26 creatinine 1.22, procalcitonin level was less than 0.20. 03/05/2025 patient evaluated in the ICU; has been downgraded and pending bed on the medical floor. Remains on airvo oxygen support. He is awake alert and oriented. Family at the bedside. Remains on po lasix twice daily. Chest xray today reveals persistent bilateral mid to lower lung acute infiltrate and or edema. No significant change from one day earlier. 03/06/2025 Patient is evaluated in follow-up on the medical floor. He is slow to wean off the Airvo and continues on 40/60. Oxygen saturations of 92%. Remains on oral Lasix twice daily. 03/07/2025 Patient evaluated today in follow up. Resting comfortably with no acute complaints at this time. 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 Sodium 135, potassium 3.5, BUN 23, creatinine 0.71. Airvo at 40/50 with oxygen saturations of 95%. 03/08/2025 Patient evaluated today in the intensive care unit. He is resting comfortably. Family has concerns as to why he is non ambulatory they did mention ruling out guillan barre syndrome although felt unlikely. 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 Once he had been made rodent exterminator care; he had not been getting therapy. He fell about a month ago and has not been able to ambulate since. Chest xray today reveals multifocal airspace opacities concerning for pneumonia. He is on oral lasix twice daily. He remains on airvo 40/48 and has been slow to wean. Unable to complete review of systems PHYSICAL EXAMINATION: GENERAL: The patient is alert initially does not talk much, not in any acute distress. Obese HEENT: Pupils are round and equally reacting to light. EOMI. No scleral icterus. No conjunctival pallor. Normocephalic, atraumatic. No pharyngeal erythema. No thyromegaly. Enlarged tongue,. CARDIOVASCULAR: S1 and S2 present. No murmurs, rubs, or gallops. PULMONARY: Chest is clear to auscultation, no wheezing or crackles. ABDOMEN: Soft, nontender, nondistended, normoactive bowel sounds. No palpable organomegaly. MUSCULOSKELETAL: No joint swelling or deformity. EXTREMITIES: No cyanosis, clubbing, or pedal edema. NEUROLOGICAL: Gross neurological examination did not reveal any focal deficits. SKIN: No rashes. Assessment and plan - Acute hypoxic and possibly probably hypercapnic respiratory failure secondary to some pulmonary edema as well as obesity hypoventilation syndrome and chronic CO2 retention. - Acute renal failure: Probably prerenal azotemia from heart failure - Hyperkalemia secondary to acute renal failure Aldactone and lisinopril all of which are being held - Congestive heart failure preserved ejection fraction, chronic diastolic function with acute exacerbation - Hyperlipidemia - Obesity and obesity hypoventilation syndrome, sleep apnea on CPAP machine at home - Hypertension - Extensive seborrheic dermatitis DVT prophylaxis: Subcutaneous heparin Plan - Downgraded to the medical floor. - Patient is on high flow nasal cannula oxygen saturating well at this time - Airvo slowly being weaned as tolerated patient has been slow to respond - Patient was started on Lasix which will be continued close monitoring of the kidney function - Monitor renal function and electrolyes - Continue strict intake and output monitioring - ketoconazole shampoo for the crusting on the scalp and around ears - ac-hydrin lotion for the feet and lower legs. - Monitor electrolyes and renal function - PT/OT consultation; family hoping to get him up walking again The impression and plan of care has been dictated by Deb Ortega, Nurse Practitioner as directed. Dr. Sarah MD I have performed a history and physical examination and medical decision making of this patient, discussed the same with the dictator, and agree with the dictators assessment and plan as written, documented as a scribe. Based on total visit time, I have performed more than 50% of this visit. Objective - Vital Signs Vital signs: Vital Signs Temp 97.6 F 03/08/25 03:45 Pulse 65 03/08/25 03:45 Resp 20 03/08/25 03:45 BP 106/66 03/08/25 03:45 Pulse Ox 91 L 03/08/25 03:45 FiO2 48 03/08/25 03:45 Intake & Output 03/07/25 03/08/25 03/08/25 18:59 06:59 18:59 Intake Total 10 Output Total 850 1450 Balance -850 -1440 Weight 119.5 kg Intake: IV 10 Invasive Line 6 10 Output: Urine 850 1450 Other: Voiding Method Indwelling Catheter Indwelling Catheter - Labs CBC & Chem 7: 03/05/25 02:45 03/07/25 10:00 Labs: Abnormal Lab Results - Last 24 Hours (Table) 03/07/25 Range/Units 10:00 Sodium 135 L (137-145) mmol/L Chloride 93 L (98-107) mmol/L Carbon Dioxide 39 H (22-30) mmol/L BUN 23 H (9-20) mg/dL Glucose 147 H (74-99) mg/dL Assessment and Plan Time with Patient: Greater than 30
[2025-03-09 07:10] LABS: African American GFR (CKD) >90 (>60 ml/min/1.73 sqM); Blood Urea Nitrogen 15 mg/dL (9-20); Calcium 8.8 mg/dL (8.4-10.2); Chloride 89 mmol/L (98-107); Glucose 135 mg/dL (74-99); Non-African American GFR(CKD) >90 (>60 ml/min/1.73 sqM); Potassium 3.7 mmol/L (3.5-5.1); Sodium 135 mmol/L (137-145)
[2025-03-09 07:17] LABS: Anion Gap 8 mmol/L
[2025-03-09 07:23] LABS: Carbon Dioxide 38 mmol/L (22-30)
[2025-03-09 07:24] LABS: Basophils # (A) 0.14 10*3/uL (0.00-0.10); Basophils % (A) 1.2 %; Eosinophils # (A) 0.11 10*3/uL (0.04-0.35); HCT 41.8 % (39.6-50.0); Lymphocytes # (A) 2.86 10*3/uL (0.90-5.00); Lymphocytes % (A) 25.4 %; MCH 30.1 pg (27.0-32.0); MCHC 31.1 g/dL (32.0-37.0); MCV 96.8 fL (80.0-97.0); Mean Platelet Volume 10.6 fL (9.5-12.2); Monocytes # (A) 0.97 10*3/uL (0.20-1.00); Monocytes % (A) 8.6 %; Neutrophils # (A) 6.03 10*3/uL (1.80-7.70); Neutrophils % (A) 53.7 %; Platelet Count 238 10*3/uL (140-440); RBC 4.32 10*6/uL (4.40-5.60); RDW 19.4 % (11.5-14.5); WBC 11.24 10*3/uL (4.50-10.00)
[2025-03-09] MEDS ORDERED: FUROSEMIDE 10 MG/ML 4 ML VIAL IV SCH (09:30)
--- NOTE | 2025-03-09 10:53 | P.PN ---
Subjective Progress Note Date: 03/09/25 On 03/08/2025, the patient is being seen for a follow-up. The patient is still in acute hypoxic kar failure currently on Airvo 40 L with FiO2 of 50%. A follow-up chest x-ray was done today and the patient was found to have multifocal airspace opacities. No evidence of any pleural effusion. No evidence of pneumothorax. The patient currently is on no antibiotics. No sputum samples are available. The white cell count is at 9.8 with a hemoglobin 12 from 03/05/2025. His previous blood gas was also consistent with acute on chronic hypoxic and hypercapnic respiratory failure. This was done while the patient was on a BiPAP. Most recent electrolytes show a serum bicarb of 39, BUN 23 with a creatinine of 0.7. The patient is on DuoNeb updrafts. The patient is on Lasix 40 mg p.o. twice a day. The fluid balance is -2.2 L over the past 24 hours. His echocardiogram from 02/25/2025 showed a preserved LV function with an ejection fraction of 60 to 65%, no significant valvular heart disease. Overall chest x-ray findings have been essentially unchanged since his admission. On 03/09/2025, the patient remains hypoxic and the patient remains on Airvo 40 L with FiO2 of 50%. Chest x-ray showing scattered bilateral pulmonary infiltrates. The patient has trisomy 21. History is limited. No antibiotic coverage. No chest pain. No pleurisy. No hemoptysis. Hemodynamically stable. The white cell count is at 11.2 with a hemoglobin of 13 and a platelet count of 238. Electrolytes are all stable. Serum bicarb is at 38, BUN is 15 with a creatinine of 0.7. No other significant events overnight. Objective - Vital Signs Vital signs: Vital Signs Temp 99.2 F 03/09/25 04:00 Pulse 72 03/09/25 08:06 Resp 18 03/09/25 04:00 BP 121/71 03/09/25 04:00 Pulse Ox 92 L 03/09/25 06:04 FiO2 55 03/09/25 07:56 Intake & Output 03/08/25 03/09/25 03/09/25 18:59 06:59 18:59 Intake Total 720 10 Output Total 625 835 Balance 95 -825 Weight 120 kg Intake: IV 10 Invasive Line 7 10 Oral 720 Output: Urine 625 835 Other: Voiding Method Indwelling Catheter Indwelling Catheter # Bowel Movements 1 - Exam No acute distress, oriented 3. Currently on Airvo, 40 L with FiO2 of 49%. He is a trisomy 21 with typical Down's features. Body mass index 48.2. HEENT examination is grossly unremarkable. Mucous membranes are moist. No oral lesions. Airvo cannula in place. Neck supple. Full range of motion. No adenopathy thyromegaly or neck vein distention. Cardiovascular examination reveals regular rhythm rate. S1-S2 normal. No S3 or S4. No discernible murmur noted. Lungs reveal bilateral scattered rhonchi. No wheezes. No crackles. Breath sounds equal bilaterally. Abdomen soft bowel sounds are heard. No masses or tenderness. Extremities are intact. No cyanosis clubbing or edema. Skin with seborrheic keratosis. Neurologic examination is brief but nonfocal. - Labs CBC & Chem 7: 03/09/25 05:44 03/09/25 05:44 Labs: Abnormal Lab Results - Last 24 Hours (Table) 03/09/25 03/09/25 Range/Units 05:44 05:44 WBC 11.24 H (4.50-10.00) 10*3/uL RBC 4.32 L (4.40-5.60) 10*6/uL MCHC 31.1 L (32.0-37.0) g/dL Immature Gran # 1.13 H (0.00-0.04) 10*3/uL Sodium 135 L (137-145) mmol/L Chloride 89 L (98-107) mmol/L Carbon Dioxide 38 H (22-30) mmol/L Glucose 135 H (74-99) mg/dL Assessment and Plan Plan: Acute on chronic hypoxemic and hypercapnic respiratory failure, currently on Airvo, suspect secondary to an exacerbation of diastolic congestive heart failure and underlying obesity hypoventilation syndrome. The patient continues to be hypoxic on Airvo at 40 L and FiO2 49%. Chest x-ray is consistent with m ultifocal patchy airspace disease. Rule out interstitial edema. Rule out pneumonia. CHF with preserved LV function, no valvular abnormalities Severe hyperkalemia, resolved Acute kidney injury, recovered, nephrology on the case History obstructive sleep apnea, unable to tolerate CPAP Morbid obesity, with a BMI of 45.2 kg/m History of hyperlipidemia Hypertension History of trisomy 21 Plan: Clinically unchanged compared to yesterday Continued on Airvo high flow oxygen Current settings of 40 L and 60% FiO2 Continue to titrate down the FiO2 as tolerated Will intensify diuretics and the patient was placed on Lasix 40 mg every 12 hours and Zaroxolyn 2.5 mg twice a day Monitor fluid balance Chest x-ray in the morning Echocardiogram shows a preserved LV function Continue bronchodilators Heparin for DVT prophylaxis Encouraged to eat slowly and chew carefully We will continue to follow Time with Patient: Greater than 30
[2025-03-09] MEDS: metOLazone 2.5 MG TAB PO SCH (11:29)
[2025-03-09] MEDS: BUDESONIDE 1 MG/2 ML NEBU INHALATION SCH (15:35)
[2025-03-09] MEDS: FUROSEMIDE 10 MG/ML 4 ML VIAL IV SCH (20:04)
[2025-03-10 07:18] LABS: African American GFR (CKD) >90 (>60 ml/min/1.73 sqM); Blood Urea Nitrogen 21 mg/dL (9-20); Calcium 8.5 mg/dL (8.4-10.2); Chloride 87 mmol/L (98-107); Glucose 161 mg/dL (74-99); Non-African American GFR(CKD) >90 (>60 ml/min/1.73 sqM); Potassium 3.6 mmol/L (3.5-5.1); Sodium 134 mmol/L (137-145)
--- NOTE | 2025-03-10 07:24 | XR ---
EXAMINATION TYPE: XR chest 1V DATE OF EXAM: 03/10/2025 6:44 AM COMPARISON: Chest radiographs from 03/08/2025. CLINICAL INDICATION: Male, 49 years old with history of hypoxia; [facility] TECHNIQUE: XR chest 1V Frontal view of the chest. FINDINGS: Lungs/Pleura: Multifocal airspace opacities. No evidence of pneumothorax or pleural effusion. Pulmonary vascularity: Unremarkable. Heart/mediastinum: Cardiomediastinal silhouette is enlarged. Musculoskeletal: No acute osseous pathology. Other findings: None Lines/Tubes: IMPRESSION: Similar multifocal airspace opacities. Correlate with serum BNP to exclude a component of congestive heart failure. [facility], , 03/10/2025 7:21 AM
[2025-03-10 07:25] LABS: Anion Gap 10 mmol/L
[2025-03-10 07:26] LABS: HCT 39.1 % (39.6-50.0); HGB 12.5 g/dL (13.0-17.0); MCH 30.9 pg (27.0-32.0); MCV 96.8 fL (80.0-97.0); Mean Platelet Volume 10.8 fL (9.5-12.2); Platelet Count 244 10*3/uL (140-440); RBC 4.04 10*6/uL (4.40-5.60); RDW 19.1 % (11.5-14.5); WBC 13.18 10*3/uL (4.50-10.00)
[2025-03-10 07:31] LABS: Carbon Dioxide 37 mmol/L (22-30)
[2025-03-10 11:00] LABS: Band Neutrophils % 1 %; Eosinophils # (M) 0.13 k/uL (0-0.7); Lymphocytes # (M) 3.56 k/uL (1.0-4.8); Metamyelocytes # (M) 0.13 k/uL (0); Metamyelocytes % 1 %; Monocytes # (M) 0.92 k/uL (0-1.0); Myelocytes # (M) 0.53 k/uL (0); Myelocytes % 4 %; Neutrophils # (M) 8.03 k/uL (1.3-7.7); Neutrophils % (M) 60 %; Nucleated Red Blood Cells 0 /100 WBC (0-0); RBC Morphology Normal; Total Cells Counted 200
--- NOTE | 2025-03-10 13:33 | PN ---
PROGRESS NOTE DATE OF SERVICE: 03/09/2025 SUBJECTIVE: A 49-year-old gentleman who was admitted with acute hypoxic hypercapnic respiratory failure, also had Down syndrome. The most recent chest x-ray done yesterday still shows some bilateral opacities. The patient is on Lasix IV b.i.d. PAST MEDICAL HISTORY: Reviewed. REVIEW OF SYSTEMS: Could not be taken. CURRENT MEDICATIONS: Reviewed. PHYSICAL EXAMINATION: VITAL SIGNS: Pulse is 67, blood pressure 160/60, and respirations 20. CHEST: A few scattered rhonchi. ABDOMEN: Soft. NERVOUS SYSTEM: n. LABORATORY DATA: WBC 11.24. ABGs noted. ASSESSMENT: 1. Acute hypoxic hypercapnic respiratory failure secondary to severe pulmonary edema as well as obesity hypoventilation syndrome and chronic CO2 retention. 2. Acute renal failure. 3. Hyperkalemia. 4. History of congestive heart failure. 5. Hyperlipidemia. 6. Hypertension. 7. Down syndrome. 8. Extensive seborrheic dermatitis. RECOMMENDATIONS AND DISCUSSION: I recommend to continue current management. Continue the diuretics. Continue with current medications. Continue with bronchodilators. Closely follow. Further recommendations to follow. We will repeat labs in the morning. MMODL / IJN: [id number] / ИРИНА
[2025-03-10] MEDS: FUROSEMIDE 10 MG/ML 4 ML VIAL IV SCH (14:48)
[2025-03-10] MEDS ORDERED: DEXTROSE 50% SYRINGE 50 ML IVP PRN ×2 (15:17)
--- NOTE | 2025-03-10 15:48 | P.PN ---
Subjective Progress Note Date: 03/10/25 On 03/08/2025, the patient is being seen for a follow-up. The patient is still in acute hypoxic kar failure currently on Airvo 40 L with FiO2 of 50%. A follow-up chest x-ray was done today and the patient was found to have multifocal airspace opacities. No evidence of any pleural effusion. No evidence of pneumothorax. The patient currently is on no antibiotics. No sputum samples are available. The white cell count is at 9.8 with a hemoglobin 12 from 03/05/2025. His previous blood gas was also consistent with acute on chronic hypoxic and hypercapnic respiratory failure. This was done while the patient was on a BiPAP. Most recent electrolytes show a serum bicarb of 39, BUN 23 with a creatinine of 0.7. The patient is on DuoNeb updrafts. The patient is on Lasix 40 mg p.o. twice a day. The fluid balance is -2.2 L over the past 24 hours. His echocardiogram from 02/25/2025 showed a preserved LV function with an ejection fraction of 60 to 65%, no significant valvular heart disease. Overall chest x-ray findings have been essentially unchanged since his admission. On 03/09/2025, the patient remains hypoxic and the patient remains on Airvo 40 L with FiO2 of 50%. Chest x-ray showing scattered bilateral pulmonary infiltrates. The patient has trisomy 21. History is limited. No antibiotic coverage. No chest pain. No pleurisy. No hemoptysis. Hemodynamically stable. The white cell count is at 11.2 with a hemoglobin of 13 and a platelet count of 238. Electrolytes are all stable. Serum bicarb is at 38, BUN is 15 with a creatinine of 0.7. No other significant events overnight. On 03/10/2025, patient is being seen for a follow-up. The patient remains on Airvo at 40 L with an FiO2 of 55%. The patient had a follow-up chest x-ray done today the findings are essentially stable with bilateral social pulmonary filtrates. Meanwhile, he was placed on diuretics and the patient is producing excellent urine output. He remains in negative fluid balance. For now, the patient is on Lasix 40 mg IV every 8 hours and patient is also on Zaroxolyn 2.5 mg p.o. daily. Fluid balance is negative. White cell count at 13.1 with a hemoglobin 12.5 and the patient's platelet count is up to 44. BUN is 21 with a creatinine of 0.9 and sodium is at 134. Clinically unchanged. No dyspnea at rest. Tolerating diet. Objective - Vital Signs Vital signs: Vital Signs Temp 98 F 03/10/25 08:00 Pulse 72 03/10/25 10:31 Resp 20 03/10/25 08:00 BP 101/66 03/10/25 08:00 Pulse Ox 93 L 03/10/25 08:00 FiO2 55 03/10/25 10:31 Intake & Output 03/09/25 03/10/25 03/10/25 18:59 06:59 18:59 Intake Total 720 540 Output Total 775 1250 525 Balance -55 -710 -525 Weight 120 kg 109.5 kg Intake: Oral 720 540 Output: Urine 775 1250 525 Coude 1250 Other: Voiding Method Indwelling Catheter Indwelling Catheter - Exam No acute distress, oriented 3. Currently on Airvo, 40 L with FiO2 of 49%. He is a trisomy 21 with typical Down's features. Body mass index 48.2. HEENT examination is grossly unremarkable. Mucous membranes are moist. No oral lesions. Airvo cannula in place. Neck supple. Full range of motion. No adenopathy thyromegaly or neck vein distention. Cardiovascular examination reveals regular rhythm rate. S1-S2 normal. No S3 or S4. No discernible murmur noted. Lungs reveal bilateral scattered rhonchi. No wheezes. No crackles. Breath sounds equal bilaterally. Abdomen soft bowel sounds are heard. No masses or tenderness. Extremities are intact. No cyanosis clubbing or edema. Skin with seborrheic keratosis. Neurologic examination is brief but nonfocal. - Labs CBC & Chem 7: 03/10/25 05:50 03/10/25 05:50 Labs: Abnormal Lab Results - Last 24 Hours (Table) 03/10/25 03/10/25 Range/Units 05:50 05:50 WBC 13.18 H (4.50-10.00) 10*3/uL RBC 4.04 L (4.40-5.60) 10*6/uL Hgb 12.5 L (13.0-17.0) g/dL Hct 39.1 L (39.6-50.0) % Immature Gran # 1.47 H (0.00-0.04) 10*3/uL Sodium 134 L (137-145) mmol/L Chloride 87 L (98-107) mmol/L Carbon Dioxide 37 H (22-30) mmol/L BUN 21 H (9-20) mg/dL Glucose 161 H (74-99) mg/dL Assessment and Plan Plan: Acute on chronic hypoxemic and hypercapnic respiratory failure, currently on Airvo, suspect secondary to an exacerbation of diastolic congestive heart failure and underlying obesity hypoventilation syndrome. The patient continues to be hypoxic on Airvo at 40 L and FiO2 49%. Chest x-ray is consistent with multifocal patchy airspace disease. Rule out interstitial edema. Rule out pneumonia. CHF with preserved LV function, no valvular abnormalities Severe hyperkalemia, resolved Acute kidney injury, recovered, nephrology on the case History obstructive sleep apnea, unable to tolerate CPAP Morbid obesity, with a BMI of 45.2 kg/m History of hyperlipidemia Hypertension History of trisomy 21 Plan: Clinically unchanged compared to yesterday, however, the patient is responding well to diuresis and the patient is currently on Lasix 40 mg IV every 8 hours. Will continue the same regimen for now. Repeat another chest x-ray with the next 24 to 48 hours. Continued on Airvo high flow oxygen Current settings of 40 L and 60% FiO2 Continue to titrate down the FiO2 as tolerated Will intensify diuretics and the patient was placed on Lasix 40 mg every 8 hours and Zaroxolyn 2.5 mg twice a day Monitor fluid balance Chest x-ray in the morning Echocardiogram shows a preserved LV function Continue bronchodilators Heparin for DVT prophylaxis Encouraged to eat slowly and chew carefully We will continue to follow Time with Patient: Greater than 30
[2025-03-10] MEDS: FORMOTEROL FUMARATE 20 MCG/2 ML NEBU INHALATION SCH (16:39)
[2025-03-10 17:31] LABS: Glucose,Whole Blood 168 mg/dL (70-110)
[2025-03-10] MEDS: methylPREDNISolone SOD SUCCI 125 MG/2 ML VIAL IV SCH (17:34)
[2025-03-10] MEDS: INSULIN LISPRO (HumaLOG) 100 UNIT/ML 10 mL VL SQ SCH (17:35)
[2025-03-10 20:05] LABS: Glucose,Whole Blood 198 mg/dL (70-110)
[2025-03-11 06:22] LABS: Glucose,Whole Blood 234 mg/dL (70-110)
--- NOTE | 2025-03-11 07:29 | XR ---
EXAMINATION TYPE: XR chest 1V DATE OF EXAM: 03/11/2025 7:11 AM COMPARISON: Chest radiograph from one day prior. CLINICAL INDICATION: Male, 49 years old with history of hypoxia; [facility] TECHNIQUE: XR chest 1V Frontal view of the chest. FINDINGS: Lungs/Pleura: Multifocal airspace opacities. No evidence of pneumothorax or pleural effusion. Pulmonary vascularity: Unremarkable. Heart/mediastinum: Cardiomediastinal silhouette is enlarged. Musculoskeletal: No acute osseous pathology. Other findings: None IMPRESSION: Similar multifocal airspace opacities. [facility], , 03/11/2025 7:26 AM
[2025-03-11 07:55] LABS: HCT 39.4 % (39.6-50.0); HGB 12.4 g/dL (13.0-17.0); MCH 30.2 pg (27.0-32.0); MCHC 31.5 g/dL (32.0-37.0); MCV 95.9 fL (80.0-97.0); Mean Platelet Volume 11.2 fL (9.5-12.2); Platelet Count 246 10*3/uL (140-440); RBC 4.11 10*6/uL (4.40-5.60); RDW 18.7 % (11.5-14.5)
[2025-03-11 08:00] LABS: ALT 13 U/L (4-49); AST 17 U/L (17-59); African American GFR (CKD) >90 (>60 ml/min/1.73 sqM); Albumin 3.1 g/dL (3.5-5.0); Alkaline Phosphatase 72 U/L (38-126); Blood Urea Nitrogen 30 mg/dL (9-20); Calcium 8.9 mg/dL (8.4-10.2); Chloride 84 mmol/L (98-107); Glucose 238 mg/dL (74-99); Non-African American GFR(CKD) >90 (>60 ml/min/1.73 sqM); Potassium 3.5 mmol/L (3.5-5.1); Sodium 135 mmol/L (137-145); Total Bilirubin 0.6 mg/dL (0.2-1.3); Total Protein 7.1 g/dL (6.3-8.2)
--- NOTE | 2025-03-11 08:07 | PN ---
PROGRESS NOTE DATE OF SERVICE: 03/10/2025 SUBJECTIVE: This is a 49-year-old gentleman, who was admitted with acute hypoxic respiratory failure possibly secondary to CHF as well as acute asthma exacerbation. Still has significant fluid overload in the lungs. I would recommend increase the dose of IV Lasix and intensive bronchodilator treatment also. The white count is also elevated. Viral testing was negative in the beginning. PAST MEDICAL HISTORY: Could not be taken. REVIEW OF SYSTEMS: Could not be taken. CURRENT MEDICATIONS: Reviewed. PHYSICAL EXAMINATION: VITAL SIGNS: Pulse is 71, blood pressure is 101/66, respirations 20, temperature CARDIOVASCULAR: S1, S2. RESPIRATION: Few scattered rhonchi and crackles. ABDOMEN: Soft. NERVOUS SYSTEM: No focal deficit. LABORATORY DATA: Sodium 133. ASSESSMENT: 1. Acute hypoxic hypercarbic respiratory failure secondary to severe pulmonary edema as well as obesity-hypoventilation syndrome and chronic CO2 retention. 2. Acute asthma exacerbation. 3. Acute renal failure. 4. Hyperkalemia. 5. History of congestive heart failure. 6. Hyperlipidemia. 7. Hypertension. 8. Down syndrome. 9. Extensive seborrheic dermatitis. RECOMMENDATIONS: Continue current management and increase Lasix. Fluid restriction 1200 mL per 24 hours, bronchodilators, course of IV steroids. Guarded prognosis because of multiple complex medical issues. Further recommendations to follow. See orders for details. MMODL / IJN: [id number] / MTDD
[2025-03-11 08:08] LABS: Anion Gap 9 mmol/L
[2025-03-11 08:15] LABS: Carbon Dioxide 42 mmol/L (22-30)
[2025-03-11 09:23] LABS: Band Neutrophils % 2 %; Eosinophils # (M) 0.16 k/uL (0-0.7); Lymphocytes # (M) 1.48 k/uL (1.0-4.8); Metamyelocytes # (M) 0.33 k/uL (0); Metamyelocytes % 2 %; Monocytes # (M) 0.49 k/uL (0-1.0); Myelocytes # (M) 0.16 k/uL (0); Myelocytes % 1 %; Neutrophils # (M) 14.26 k/uL (1.3-7.7); Neutrophils % (M) 85 %; Nucleated Red Blood Cells 0 /100 WBC (0-0); Total Cells Counted 200
[2025-03-11 09:26] LABS: Anisocytosis (M) Present; Spherocytes Present
[2025-03-11] MEDS ORDERED: RX INFO: IV CONTRAST WAS GIVEN 1 EACH MISC MISCELLANE PRN (10:05)
[2025-03-11 11:27] LABS: Glucose,Whole Blood 288 mg/dL (70-110)
[2025-03-11] MEDS: acetaZOLAMIDE 250 MG TAB PO SCH (11:56)
--- NOTE | 2025-03-11 15:19 | P.PN ---
Subjective Progress Note Date: 03/11/25 On 03/08/2025, the patient is being seen for a follow-up. The patient is still in acute hypoxic kar failure currently on Airvo 40 L with FiO2 of 50%. A follow-up chest x-ray was done today and the patient was found to have multifocal airspace opacities. No evidence of any pleural effusion. No evidence of pneumothorax. The patient currently is on no antibiotics. No sputum samples are available. The white cell count is at 9.8 with a hemoglobin 12 from 03/05/2025. His previous blood gas was also consistent with acute on chronic hypoxic and hypercapnic respiratory failure. This was done while the patient was on a BiPAP. Most recent electrolytes show a serum bicarb of 39, BUN 23 with a creatinine of 0.7. The patient is on DuoNeb updrafts. The patient is on Lasix 40 mg p.o. twice a day. The fluid balance is -2.2 L over the past 24 hours. His echocardiogram from 02/25/2025 showed a preserved LV function with an ejection fraction of 60 to 65%, no significant valvular heart disease. Overall chest x-ray findings have been essentially unchanged since his admission. On 03/09/2025, the patient remains hypoxic and the patient remains on Airvo 40 L with FiO2 of 50%. Chest x-ray showing scattered bilateral pulmonary infiltrates. The patient has trisomy 21. History is limited. No antibiotic coverage. No chest pain. No pleurisy. No hemoptysis. Hemodynamically stable. The white cell count is at 11.2 with a hemoglobin of 13 and a platelet count of 238. Electrolytes are all stable. Serum bicarb is at 38, BUN is 15 with a creatinine of 0.7. No other significant events overnight. On 03/10/2025, patient is being seen for a follow-up. The patient remains on Airvo at 40 L with an FiO2 of 55%. The patient had a follow-up chest x-ray done today the findings are essentially stable with bilateral social pulmonary filtrates. Meanwhile, he was placed on diuretics and the patient is producing excellent urine output. He remains in negative fluid balance. For now, the patient is on Lasix 40 mg IV every 8 hours and patient is also on Zaroxolyn 2.5 mg p.o. daily. Fluid balance is negative. White cell count at 13.1 with a hemoglobin 12.5 and the patient's platelet count is up to 44. BUN is 21 with a creatinine of 0.9 and sodium is at 134. Clinically unchanged. No dyspnea at rest. Tolerating diet. 03/11/2025, the patient is being seen for a. The patient remains on Airvo and is currently at 50 L and FiO2 of 70%. He has been diuresed effectively with IV Lasix. He is producing adequate amount of urine output. Nevertheless, there is no significant improvement in the patient's oxygenation. Noted his fluid balance has been -3.9 L over the past 24 hours and the patient remains on Lasix 40 mg IV every 8 hours. He is also on Zaroxolyn 2.5 mg p.o. daily. The white cell count is 16.4 with a hemoglobin 12.4 and a platelet count of 246. Serum bicarbonate 42 with a sodium level of 135 and a potassium level of 3.5. Blood sugar is up to 88. BUN 30 with a creatinine of 0.9. Remains on bronchodilators. Remains on a combination of Perforomist and Pulmicort nebul ized treatments twice a day. Remains on IV Solu-Medrol 60 mg every 6 hours. A follow-up chest x-ray was done today and the patient was found to have similar multifocal airspace opacities that remain essentially unchanged. Objective - Vital Signs Vital signs: Vital Signs Temp 98.5 F 03/11/25 04:00 Pulse 72 03/11/25 09:15 Resp 18 03/11/25 09:15 BP 111/69 03/11/25 09:15 Pulse Ox 95 03/11/25 09:15 FiO2 55 03/11/25 09:15 Intake & Output 03/10/25 03/11/25 03/11/25 18:59 06:59 18:59 Intake Total 10 Output Total 2850 1150 Balance -2850 -1140 Weight 110.2 kg Intake: IV 10 Invasive Line 7 10 Output: Urine 2850 1150 Other: Voiding Method Indwelling Catheter Indwelling Catheter - Exam No acute distress, oriented 3. Currently on Airvo, 50 L of FiO2 of 70%%. He is a trisomy 21 with typical Down's features. Body mass index 48.2. HEENT examination is grossly unremarkable. Mucous membranes are moist. No oral lesions. Airvo cannula in place. Neck supple. Full range of motion. No adenopathy thyromegaly or neck vein distention. Cardiovascular examination reveals regular rhythm rate. S1-S2 normal. No S3 or S4. No discernible murmur noted. Lungs reveal bilateral scattered rhonchi. No wheezes. No crackles. Breath sounds equal bilaterally. Abdomen soft bowel sounds are heard. No masses or tenderness. Extremities are intact. No cyanosis clubbing or edema. Skin with seborrheic keratosis. Neurologic examination is brief but nonfocal. - Labs CBC & Chem 7: 03/11/25 06:03/11/25 06:14 Labs: Abnormal Lab Results - Last 24 Hours (Table) 03/10/25 03/10/25 03/10/25 Range/Units 05:50 17:29 20:03 WBC (4.50-10.00) 10*3/uL RBC (4.40-5.60) 10*6/uL Hgb (13.0-17.0) g/dL Hct (39.6-50.0) % MCHC (32.0-37.0) g/dL Immature Gran # (0.00-0.04) 10*3/uL Neutrophils # (Manual) 8.03 H (1.3-7.7) k/uL Metamyelocytes # (Man) 0.13 H (0) k/uL Myelocytes # (Manual) 0.53 H (0) k/uL Sodium (137-145) mmol/L Chloride (98-107) mmol/L Carbon Dioxide (22-30) mmol/L BUN (9-20) mg/dL Glucose (74-99) mg/dL POC Glucose (mg/dL) 168 H 198 H (70-110) mg/dL Albumin (3.5-5.0) g/dL 03/11/25 03/11/25 03/11/25 Range/Units 06:14 06:14 06:20 WBC 16.40 H (4.50-10.00) 10*3/uL RBC 4.11 L (4.40-5.60) 10*6/uL Hgb 12.4 L (13.0-17.0) g/dL Hct 39.4 L (39.6-50.0) % MCHC 31.5 L (32.0-37.0) g/dL Immature Gran # 1.58 H (0.00-0.04) 10*3/uL Neutrophils # (Manual) 14.26 H (1.3-7.7) k/uL Metamyelocytes # (Man) 0.33 H (0) k/uL Myelocytes # (Manual) 0.16 H (0) k/uL Sodium 135 L (137-145) mmol/L Chloride 84 L (98-107) mmol/L Carbon Dioxide 42 H* (22-30) mmol/L BUN 30 H (9-20) mg/dL Glucose 238 H (74-99) mg/dL POC Glucose (mg/dL) 234 H (70-110) mg/dL Albumin 3.1 L (3.5-5.0) g/dL Assessment and Plan Plan: Acute on chronic hypoxemic and hypercapnic respiratory failure, currently on Airvo, suspect secondary to an exacerbation of diastolic congestive heart failure and underlying obesity hypoventilation syndrome. The patient continues to be hypoxic on Airvo at 50 L and FiO2 of 70%. Chest x-ray remains unchanged with multifocal patchy airspace opacities. Oxygenation remains unchanged and the patient continues to be hypoxic despite being adequately diuresed and his fluid balance is -3.9 L over the past 24 hours. CHF with preserved LV function, no valvular abnormalities Severe hyperkalemia, resolved Acute kidney injury, recovered, nephrology on the case History obstructive sleep apnea, unable to tolerate CPAP Morbid obesity, with a BMI of 45.2 kg/m History of hyperlipidemia Hypertension History of trisomy 21 Plan: Clinically unchanged compared to yesterday, however, the patient is responding well to diuresis and the patient is currently on Lasix 40 mg IV every 8 hours. Will continue the same regimen for now. Continued on Airvo high flow oxygen Continue IV Lasix and Zaroxolyn Obtain a CAT scan of the chest with contrast Monitor fluid balance The patient has developed metabolic alkalosis and the patient will be started on Diamox 500 mg IV every 12 hours Echocardiogram shows a preserved LV function Continue bronchodilators Heparin for DVT prophylaxis Encouraged to eat slowly and chew carefully We will continue to follow Time with Patient: Greater than 30
[2025-03-11 16:18] LABS: Glucose,Whole Blood 356 mg/dL (70-110)
[2025-03-11] MEDS: PIPERACILLIN-TAZOBACTAM 3.375 GM in SODIUM CHLORIDE 0.9% 100 ML IVPB SCH (16:40)
--- NOTE | 2025-03-11 17:02 | CT ---
EXAMINATION TYPE: CT chest w con CT DLP: 1028 mGycm, Automated exposure control for dose reduction was used. DATE OF EXAM: 03/11/2025 4:37 PM COMPARISON: Multiple chest radiographs with most recent 03/11/2025, CTA chest 12/15/2021 CLINICAL INDICATION:Male, 49 years old with history of hypoxia; [facility], hypoxia TECHNIQUE: Multiple axial images were obtained through the chest following the administration of 100 cc of Isovue 300. . Coronal and sagittal reformats reviewed. FINDINGS: LUNGS/ PLEURA: No pleural effusion or pneumothorax. Minimal bilateral lower lobe subsegmental atelect asis. Scattered regions of linear atelectasis. Scattered peribronchiolar groundglass opacities. No fo marli consolidation. No distinct suspicious pulmonary nodule or mass. AIRWAY: Patent and unremarkable.. HEART: Cardiomegaly is demonstrated.No significant pericardial effusion.. No pericardial effusion. No significant coronary artery calcifications. MEDIASTINUM: Mildly enlarged low right paratracheal lymph node measuring up to 1.3 cm short axis (ser ies 201, image 21). VASCULATURE: No aortic aneurysm. MUSCULOSKELETAL: No acute osseous abnormalities SOFT TISSUES/LYMPH NODES: Unremarkable. LOWER NECK: No significant findings. UPPER ABDOMEN: Stable left adrenal gland 2.1 cm nodule dating back to 2021 and considered benign. Pro bable adenoma. No follow up recommended. IMPRESSION: 1. Cardiomegaly with findings suggestive of pulmonary edema. No focal consolidation. 2. Nonspecific mildly enlarged right paratracheal lymph node. May be reactive. [facility], , 03/11/2025 5:00 PM
[2025-03-11 20:06] LABS: Glucose,Whole Blood 433 mg/dL (70-110)
[2025-03-11] MEDS: INSULIN GLARGINE (LANTUS) 100 UNIT/ML SYR SQ SCH (22:25)
[2025-03-11] MEDS: INSULIN LISPRO (HumaLOG) 100 UNIT/ML 10 mL VL SQ SCH (22:26)
--- NOTE | 2025-03-12 01:46 | PN ---
PROGRESS NOTE DATE OF SERVICE: 03/11/2025 SUBJECTIVE: This is a 49-year-old gentleman who was admitted with acute hypoxic respiratory failure secondary to asthma and obesity-hypoventilation syndrome, also had Down syndrome. The patient is on an Airvo at this time. Chest x-ray showed significant CHF also. Patient will be closely monitored. PAST MEDICAL HISTORY: Could not be taken. REVIEW OF SYSTEMS: Could not be taken. CURRENT MEDICATIONS: Reviewed. PHYSICAL EXAMINATION: VITAL SIGNS: Pulse is 78, blood pressure 111/66, respirations 25. HEENT: Conjunctivae normal. CARDIOVASCULAR: S1, S2. RESPIRATION: Few scattered rhonchi ABDOMEN: Soft. NERVOUS SYSTEM: Nonfocal. LABORATORY DATA: WBC 16.4. The cultures are negative so far. ASSESSMENT: 1. Acute hypoxic hypercarbic respiratory failure secondary to severe pulmonary edema as well as obesity-hypoventilation syndrome as well as chronic CO2 retention. 2. Acute asthma exacerbation, rule out bilateral pneumonia aspiration. 3. Acute renal failure. 4. Hyperkalemia. 5. History of congestive heart failure. 6. Hypertension. 7. Hyperlipidemia. 8. Down syndrome. 9. Extensive seborrheic dermatitis. RECOMMENDATIONS: Continue current management. Recommend procalcitonin as well as empiric antibiotics also. Continue with intensive bronchodilator treatment with IV diuretics. The patient is still on Airvo. The patient is unable to be mobilized anywhere because of the high oxygen requirement. We will continue to monitor. Prognosis guarded because of multiple complex medical issues. Further recommendations to follow. MMODL / IJN: [id number] /
[2025-03-12 05:58] LABS: Glucose,Whole Blood 374 mg/dL (70-110)
[2025-03-12 08:02] LABS: HCT 39.5 % (39.6-50.0); HGB 12.1 g/dL (13.0-17.0); MCH 29.2 pg (27.0-32.0); MCHC 30.6 g/dL (32.0-37.0); MCV 95.4 fL (80.0-97.0); Mean Platelet Volume 10.9 fL (9.5-12.2); Platelet Count 280 10*3/uL (140-440); RBC 4.14 10*6/uL (4.40-5.60); WBC 16.72 10*3/uL (4.50-10.00)
[2025-03-12 08:12] LABS: African American GFR (CKD) 89 (>60 ml/min/1.73 sqM); Blood Urea Nitrogen 35 mg/dL (9-20); Calcium 8.8 mg/dL (8.4-10.2); Chloride 79 mmol/L (98-107); Glucose 348 mg/dL (74-99); Non-African American GFR(CKD) 77 (>60 ml/min/1.73 sqM); Sodium 134 mmol/L (137-145)
[2025-03-12 08:18] LABS: Anion Gap 10 mmol/L
[2025-03-12 08:22] LABS: Potassium 2.6 mmol/L (3.5-5.1)
[2025-03-12 08:24] LABS: Carbon Dioxide 45 mmol/L (22-30)
[2025-03-12 09:50] LABS: Lymphocytes # (M) 2.34 k/uL (1.0-4.8); Metamyelocytes # (M) 0.17 k/uL (0); Metamyelocytes % 1 %; Myelocytes % 3 %; Neutrophils # (M) 13.38 k/uL (1.3-7.7); Neutrophils % (M) 80 %; Nucleated Red Blood Cells 0 /100 WBC (0-0); Total Cells Counted 200
[2025-03-12 10:03] LABS: Anisocytosis (M) Present
[2025-03-12] MEDS ORDERED: Potassium Replacement Protocol 1 EACH MISC MISCELLANE PRN (11:16)
[2025-03-12 11:44] LABS: Glucose,Whole Blood 222 mg/dL (70-110)
[2025-03-12] MEDS: POTASSIUM CHLORIDE ER 20 MEQ TAB.ER PO SCH (13:09)
[2025-03-12] MEDS: methylPREDNISolone SOD SUCCI 40 MG/ML 1 ML VIAL IV SCH (13:09)
--- NOTE | 2025-03-12 15:06 | P.CONS ---
History of Present Illness - Reason for Consult Consult date: 03/11/25 Aspiration pneumonia Requesting physician: Salazar Matias - Chief Complaint Shortness of breath x days - History of Present Illness Patient is a 49-year-old male with a past medical history of GERD for hyperlipidemia reflux heart failure asthma and memory impairment patient presented the hospital 2 weeks ago on 02/24/2025 for evaluation of increasing shortness of breath this patient was a resident of [facility] patient on presentation to the hospital was afebrile and the patient has been under care of pulmonary cardiology services did have a low-grade fever of 100 F last night and the patient seemed to be requiring more supplemental oxygen as reported by the nursing staff patient also have a chest x-ray completed this morning suspect continued CHF exacerbation fluid overload bibasilar acute infiltrate not excluded patient has been started on Zosyn concerning for possible pneumonia office patient neurology and infectious was consulted nursing staff reported patient seems to do okay while being fed and they have not noticed any significant choking on the food or no nausea vomiting or diarrhea most information has been obtained from review the chart and talking to nursing staff the patient still not a very good historian Review of Systems Positive points has been mentioned in HPI complete review could not be obtained because of his underlying mental status Past Medical History Past Medical History: Asthma, Heart Failure, GERD/Reflux, Hyperlipidemia, Memory Impairment Additional Past Medical History / Comment(s): Down syndrome/IQ of about 74, spiritual minister santiago feet issue d/t gout, SHARRI but pt unable to tolerate CPAP, History of Any Multi-Drug Resistant Organisms: None Reported Past Surgical History: Ear Surgery Additional Past Surgical History / Comment(s): Tubes in ears, eye sx-family believes due to weak muscles, cyst removed from back Past Anesthesia/Blood Transfusion Reactions: No Reported Reaction Past Psychological History: No Psychological Hx Reported Smoking Status: Second hand smoke exposure Past Alcohol Use History: None Reported Past Drug Use History: None Reported - Past Family History Mother Family Medical History: Congestive Heart Failure (CHF), GERD/Reflux Additional Family Medical History / Comment(s): Vivienne Medications and Allergies Home Medications Medication Instructions Recorded Confirmed Type Atorvastatin [Lipitor] 40 mg PO DAILY 01/11/16 02/25/25 History Spironolactone [Aldactone] 25 mg PO DAILY 12/15/21 02/25/25 History Aspirin 81 mg PO DAILY #30 01/03/22 02/25/25 Rx lisinopriL [Zestril] 2.5 mg PO DAILY #30 tab 01/03/22 02/25/25 Rx Amino Acids/Protein Hydrolys 1 applic TOPICAL BID 02/25/25 02/25/25 History [Pro-Stat Awc Liquid] Ammonium Lactate Cream [Lac-Hydrin 1 applic TOPICAL BID 02/25/25 02/25/25 History 12% Cream] Ascorbic Acid [Vitamin C] 500 mg PO DAILY 02/25/25 02/25/25 History Esomeprazole Magnesium [NexIUM] 20 mg PO BID 02/25/25 02/25/25 History Fluoride (Sodium) [Prevident] 1 applic TOPICAL HS 02/25/25 02/25/25 History Furosemide [Lasix] 40 mg PO DAILY 02/25/25 02/25/25 History Miconzole Powder 2% 1 applic TOPICAL BID 02/25/25 02/25/25 History Tamsulosin HCl [Flomax] 0.4 mg PO DAILY 02/25/25 02/25/25 History Thiamine [Vitamin B-1] 100 mg PO DAILY 02/25/25 02/25/25 History Allergies Allergy/AdvReac Type Severity Reaction Status Date / Time No Known Allergies Allergy Verified 02/25/25 09:00 Physical Exam Vitals: Vital Signs Temp Pulse Pulse Pulse Resp BP Pulse Ox 03/11/25 12:11 78 03/11/25 12:10 89 L 03/11/25 12:01 71 03/11/25 11:52 98.5 F 74 25 H 111/63 89 L 03/11/25 10:30 86 L 03/11/25 09:15 72 18 111/69 95 03/11/25 09:10 76 03/11/25 09:02 72 03/11/25 08:52 86 L 03/11/25 08:50 86 03/11/25 04:00 98.5 F 71 20 105/70 92 L 03/11/25 03:44 89 L 03/11/25 00:32 87 L 03/11/25 00:00 99.1 F 83 18 129/74 91 L 03/10/25 21:03 84 03/10/25 20:55 84 03/10/25 20:53 84 03/10/25 20:43 89 L 03/10/25 20:42 83 03/10/25 20:00 100.0 F H 84 20 124/77 91 L 03/10/25 16:51 72 03/10/25 16:40 76 03/10/25 16:00 97.9 F 78 18 104/64 93 L FiO2 03/11/25 12:11 03/11/25 12:10 70 03/11/25 12:01 03/11/25 11:52 03/11/25 10:30 70 03/11/25 09:15 55 03/11/25 09:10 03/11/25 09:02 03/11/25 08:52 65 03/11/25 08:50 03/11/25 04:00 55 03/11/25 03:44 65 03/11/25 00:32 65 03/11/25 00:00 55 03/10/25 21:03 03/10/25 20:55 03/10/25 20:53 03/10/25 20:43 65 03/10/25 20:42 03/10/25 20:00 55 03/10/25 16:51 03/10/25 16:40 55 03/10/25 16:00 55 Intake and Output 03/11/25 03/11/25 03/11/25 06:59 14:59 22:59 Intake Total 10 360 Output Total 1150 Balance -1140 360 Intake: IV 10 20 Invasive Line 7 10 20 Oral 340 Output: Urine 1150 Other: Voiding Method Indwelling Catheter Indwelling Catheter Weight 110.2 kg GENERAL DESCRIPTION: Middle-age male lying in bed, no distress. No tachypnea or accessory muscle of respiration use. HEENT: Shows Pallor , no scleral icterus. Oral mucous membrane is dry. NECK: Trachea central, no thyromegaly. LUNGS: Unlabored breathing. decreased breath sound at the base HEART: S1, S2, regular rate and rhythm. No loud murmur ABDOMEN: Soft, no tenderness , guarding or rigidity, no organomegaly EXTREMITIES: Leg to the leg but no redness SKIN: No rash, no masses palpable. NEUROLOGICAL: The patient is awake, mood and affect normal. Results CBC & Chem 7: 03/12/25 06:34 03/12/25 06:34 Labs: Abnormal Lab Results - Last 24 Hours (Table) 05/03/10/25 03/11/25 Range/Units 17:29 20:03 06:14 WBC (4.50-10.00) 10*3/uL RBC (4.40-5.60) 10*6/uL Hgb (13.0-17.0) g/dL Hct (39.6-50.0) % MCHC (32.0-37.0) g/dL Immature Gran # (0.00-0.04) 10*3/uL Neutrophils # (Manual) (1.3-7.7) k/uL Metamyelocytes # (Man) (0) k/uL Myelocytes # (Manual) (0) k/uL Sodium (137-145) mmol/L Chloride (98-107) mmol/L Carbon Dioxide (22-30) mmol/L BUN (9-20) mg/dL Glucose (74-99) mg/dL POC Glucose (mg/dL) 168 H 198 H (70-110) mg/dL Hemoglobin A1c 6.7 H (<=6.0) % Albumin (3.5-5.0) g/dL 03/11/25 03/11/25 03/11/25 Range/Units 06:14 06:14 06:20 WBC 16.40 H (4.50-10.00) 10*3/uL RBC 4.11 L (4.40-5.60) 10*6/uL Hgb 12.4 L (13.0-17.0) g/dL Hct 39.4 L (39.6-50.0) % MCHC 31.5 L (32.0-37.0) g/dL Immature Gran # 1.58 H (0.00-0.04) 10*3/uL Neutrophils # (Manual) 14.26 H (1.3-7.7) k/uL Metamyelocytes # (Man) 0.33 H (0) k/uL Myelocytes # (Manual) 0.16 H (0) k/uL Sodium 135 L (137-145) mmol/L Chloride 84 L (98-107) mmol/L Carbon Dioxide 42 H* (22-30) mmol/L BUN 30 H (9-20) mg/dL Glucose 238 H (74-99) mg/dL POC Glucose (mg/dL) 234 H (70-110) mg/dL Hemoglobin A1c (<=6.0) % Albumin 3.1 L (3.5-5.0) g/dL 03/11/25 Range/Units 11:25 WBC (4.50-10.00) 10*3/uL RBC (4.40-5.60) 10*6/uL Hgb (13.0-17.0) g/dL Hct (39.6-50.0) % MCHC (32.0-37.0) g/dL Immature Gran # (0.00-0.04) 10*3/uL Neutrophils # (Manual) (1.3-7.7) k/uL Metamyelocytes # (Man) (0) k/uL Myelocytes # (Manual) (0) k/uL Sodium (137-145) mmol/L Chloride (98-107) mmol/L Carbon Dioxide (22-30) mmol/L BUN (9-20) mg/dL Glucose (74-99) mg/dL POC Glucose (mg/dL) 288 H (70-110) mg/dL Hemoglobin A1c (<=6.0) % Albumin (3.5-5.0) g/dL Assessment and Plan (1) Aspiration pneumonia Current Visit: Yes Status: Acute Code(s): J69.0 - PNEUMONITIS DUE TO INHALATION OF FOOD AND VOMIT SNOMED Code(s): 722361636 Plan: 1patient presented to the hospital initially on 02/24/2025 for evaluation of increasing shortness of breath and the patient has been under care of pulmonary and cardiology services as well as admitting team patient did have a low-grade fever on 03/10/2025 and worsening of his white count, with a chest x-ray concerning for acute bibasilar infiltrate question of possible aspiration pneumonia/gram-negative 2-patient has been started on Zosyn to continue 3-try to obtain a sputum and check inflammatory markers We will follow on clinical condition and cultures to further adjust medication if needed Thank you for this consultation we will follow the patient along with you Dictation was produced using [employer] software. please excuse any grammatical, word or spelling errors. Time with Patient: Greater than 30
--- NOTE | 2025-03-12 15:06 | P.PN ---
Subjective Progress Note Date: 03/12/25 Principal diagnosis: Reason for follow-up is possible pneumonia Patient is a 49-year-old male with a past medical history of GERD for hyperlipidemia reflux heart failure asthma and memory impairment with initial presentation the hospital for shortness of breath subsequently did have a low- grade fever on 03/10/2025 with a chest x-ray showing bibasilar acute infiltrate prompting this consultation On today's evaluation that is 03/12/2025, Patient is afebrile this morning patient slightly sleepy today and is currently on Airvo requiring 50% high flow oxygen no vomiting diarrhea no changes reported by the nursing staff. Patient did have a white count of 16.72 creatinine is 1.1 Objective - Vital Signs Vital signs: Vital Signs Temp 98.7 F 03/12/25 12:10 Pulse 59 L 03/12/25 12:10 Resp 22 03/12/25 12:10 BP 108/64 03/12/25 12:10 Pulse Ox 95 03/12/25 12:10 FiO2 70 03/12/25 11:45 Intake & Output 03/11/25 03/12/25 03/12/25 18:59 06:59 18:59 Intake Total 360 20 20 Output Total 1000 1999 1500 Ltvcgnv -180 -8560 -9910 Weight 111.2 kg Intake: IV 20 20 20 Invasive Line 7 20 20 20 Oral 340 Output: Urine 1000 2000 1500 Other: Voiding Method Indwelling Catheter Indwelling Catheter Indwelling Catheter - Exam GENERAL DESCRIPTION: Middle-age male lying in bed in no distress RESPIRATORY SYSTEM: Unlabored breathing , decreased breath sounds at bases HEART: S1 S2 regular rate and rhythm , ABDOMEN: Soft , no tenderness - Labs CBC & Chem 7: 03/12/25 06:34 03/12/25 06:34 Labs: Abnormal Lab Results - Last 24 Hours (Table) 03/11/25 03/11/25 03/12/25 Range/Units 16:13 20:05 05:56 WBC (4.50-10.00) 10*3/uL RBC (4.40-5.60) 10*6/uL Hgb (13.0-17.0) g/dL Hct (39.6-50.0) % MCHC (32.0-37.0) g/dL Immature Gran # (0.00-0.04) 10*3/uL Neutrophils # (Manual) (1.3-7.7) k/uL Metamyelocytes # (Man) (0) k/uL Myelocytes # (Manual) (0) k/uL Sodium (137-145) mmol/L Potassium (3.5-5.1) mmol/L Chloride (98-107) mmol/L Carbon Dioxide (22-30) mmol/L BUN (9-20) mg/dL Glucose (74-99) mg/dL POC Glucose (mg/dL) 356 H 433 H 374 H (70-110) mg/dL 03/12/25 03/12/25 03/12/25 Range/Units 06:34 06:34 11:43 WBC 16.72 H (4.50-10.00) 10*3/uL RBC 4.14 L (4.40-5.60) 10*6/uL Hgb 12.1 L (13.0-17.0) g/dL Hct 39.5 L (39.6-50.0) % MCHC 30.6 L (32.0-37.0) g/dL Immature Gran # 1.63 H (0.00-0.04) 10*3/uL Neutrophils # (Manual) 13.38 H (1.3-7.7) k/uL Metamyelocytes # (Man) 0.17 H (0) k/uL Myelocytes # (Manual) 0.50 H (0) k/uL Sodium 134 L (137-145) mmol/L Potassium 2.6 L* (3.5-5.1) mmol/L Chloride 79 L (98-107) mmol/L Carbon Dioxide 45 H* (22-30) mmol/L BUN 35 H (9-20) mg/dL Glucose 348 H (74-99) mg/dL POC Glucose (mg/dL) 222 H (70-110) mg/dL Assessment and Plan (1) Aspiration pneumonia Current Visit: Yes Status: Acute Code(s): J69.0 - PNEUMONITIS DUE TO INHALATION OF FOOD AND VOMIT SNOMED Code(s): 751592046 Plan: 1patient presented to the hospital initially on 02/24/2025 for evaluation of increasing shortness of breath and the patient has been under care of pulmonary and cardiology services as well as admitting team patient did have a low-grade fever on 03/10/2025 and also had worsening of his white count, with a chest x-ray concerning for acute bibasilar infiltrate question of possible aspiration pneumonia/gram-negative 2-patient currently being treated with Zosyn try to obtain a sputum and wait for the flu markers to be finalized Dictation was produced using [employer] dictation software. please excuse any grammatical, word or spelling errors.
--- NOTE | 2025-03-12 16:26 | P.PN ---
Subjective Progress Note Date: 03/12/25 On 03/08/2025, the patient is being seen for a follow-up. The patient is still in acute hypoxic kar failure currently on Airvo 40 L with FiO2 of 50%. A follow-up chest x-ray was done today and the patient was found to have multifocal airspace opacities. No evidence of any pleural effusion. No evidence of pneumothorax. The patient currently is on no antibiotics. No sputum samples are available. The white cell count is at 9.8 with a hemoglobin 12 from 03/05/2025. His previous blood gas was also consistent with acute on chronic hypoxic and hypercapnic respiratory failure. This was done while the patient was on a BiPAP. Most recent electrolytes show a serum bicarb of 39, BUN 23 with a creatinine of 0.7. The patient is on DuoNeb updrafts. The patient is on Lasix 40 mg p.o. twice a day. The fluid balance is -2.2 L over the past 24 hours. His echocardiogram from 02/25/2025 showed a preserved LV function with an ejection fraction of 60 to 65%, no significant valvular heart disease. Overall chest x-ray findings have been essentially unchanged since his admission. On 03/09/2025, the patient remains hypoxic and the patient remains on Airvo 40 L with FiO2 of 50%. Chest x-ray showing scattered bilateral pulmonary infiltrates. The patient has trisomy 21. History is limited. No antibiotic coverage. No chest pain. No pleurisy. No hemoptysis. Hemodynamically stable. The white cell count is at 11.2 with a hemoglobin of 13 and a platelet count of 238. Electrolytes are all stable. Serum bicarb is at 38, BUN is 15 with a creatinine of 0.7. No other significant events overnight. On 03/10/2025, patient is being seen for a follow-up. The patient remains on Airvo at 40 L with an FiO2 of 55%. The patient had a follow-up chest x-ray done today the findings are essentially stable with bilateral social pulmonary filtrates. Meanwhile, he was placed on diuretics and the patient is producing excellent urine output. He remains in negative fluid balance. For now, the patient is on Lasix 40 mg IV every 8 hours and patient is also on Zaroxolyn 2.5 mg p.o. daily. Fluid balance is negative. White cell count at 13.1 with a hemoglobin 12.5 and the patient's platelet count is up to 44. BUN is 21 with a creatinine of 0.9 and sodium is at 134. Clinically unchanged. No dyspnea at rest. Tolerating diet. 03/11/2025, the patient is being seen for a. The patient remains on Airvo and is currently at 50 L and FiO2 of 70%. He has been diuresed effectively with IV Lasix. He is producing adequate amount of urine output. Nevertheless, there is no significant improvement in the patient's oxygenation. Noted his fluid balance has been -3.9 L over the past 24 hours and the patient remains on Lasix 40 mg IV every 8 hours. He is also on Zaroxolyn 2.5 mg p.o. daily. The white cell count is 16.4 with a hemoglobin 12.4 and a platelet count of 246. Serum bicarbonate 42 with a sodium level of 135 and a potassium level of 3.5. Blood sugar is up to 88. BUN 30 with a creatinine of 0.9. Remains on bronchodilators. Remains on a combination of Perforomist and Pulmicort nebul ized treatments twice a day. Remains on IV Solu-Medrol 60 mg every 6 hours. A follow-up chest x-ray was done today and the patient was found to have similar multifocal airspace opacities that remain essentially unchanged. On 03/12/2025, the patient is being seen for a follow-up. The patient remains on Airvo at 50 L with an FiO2 of 70%. He continues to diurese well with diuretics and the patient is a negative fluid balance of 2.6 L over the past 24 hours. He remains on Diamox, Lasix 40 mg IV every 8 hours and Zaroxolyn 2.5 mg p.o. daily. Nevertheless, there has been no significant improvement in the patient's oxygenation. Based on that, a CAT scan of the chest was obtained and the CAT scan showed cardiomegaly and findings consistent with pulmonary edema. There was some motion artifact. There is also a mildly enlarged right paratracheal lymph node. Hemodynamically stable. Potassium level is low at 2.6 and needs to be replaced. Serum bicarbonate is at 45. Sodium is at 134, WBC count 16.7 with a hemoglobin 12.1 and a platelet count of 280. He is a case of trisomy 21. Does not seem to be in respiratory distress at rest. Breathing effort are quite shallow. Objective - Vital Signs Vital signs: Vital Signs Temp 97.7 F 03/11/25 16:00 Pulse 72 03/12/25 09:12 Resp 20 03/12/25 03:21 BP 104/64 03/12/25 03:21 Pulse Ox 87 L 03/12/25 09:02 FiO2 70 03/12/25 09:02 Intake & Output 03/11/25 03/12/25 03/12/25 18:59 06:59 18:59 Intake Total 360 20 Output Total 1000 1999 Balance -640 -1979 Weight 111.2 kg Intake: IV 20 20 Invasive Line 7 20 20 Oral 340 Output: Urine 1000 1999 Other: Voiding Method Indwelling Catheter Indwelling Catheter - Exam No acute distress, oriented 3. Currently on Airvo, 50 L of FiO2 of 70%%. He is a trisomy 21 with typical Down's features. Body mass index 48.2. HEENT examination is grossly unremarkable. Mucous membranes are moist. No oral lesions. Airvo cannula in place. Neck supple. Full range of motion. No adenopathy thyromegaly or neck vein distention. Cardiovascular examination reveals regular rhythm rate. S1-S2 normal. No S3 or S4. No discernible murmur noted. Lungs reveal bilateral scattered rhonchi. No wheezes. No crackles. Breath sounds equal bilaterally. Abdomen soft bowel sounds are heard. No masses or tenderness. Extremities are intact. No cyanosis clubbing or edema. Skin with seborrheic keratosis. Neurologic examination is brief but nonfocal. - Labs CBC & Chem 7: 03/12/25 06:34 03/12/25 06:34 Labs: Abnormal Lab Results - Last 24 Hours (Table) 03/11/25 03/11/25 03/11/25 Range/Units 11:25 16:13 20:05 WBC (4.50-10.00) 10*3/uL RBC (4.40-5.60) 10*6/uL Hgb (13.0-17.0) g/dL Hct (39.6-50.0) % MCHC (32.0-37.0) g/dL Immature Gran # (0.00-0.04) 10*3/uL Neutrophils # (Manual) (1.3-7.7) k/uL Metamyelocytes # (Man) (0) k/uL Myelocytes # (Manual) (0) k/uL Sodium (137-145) mmol/L Potassium (3.5-5.1) mmol/L Chloride (98-107) mmol/L Carbon Dioxide (22-30) mmol/L BUN (9-20) mg/dL Glucose (74-99) mg/dL POC Glucose (mg/dL) 288 H 356 H 433 H (70-110) mg/dL 03/12/25 03/12/25 03/12/25 Range/Units 05:56 06:34 06:34 WBC 16.72 H (4.50-10.00) 10*3/uL RBC 4.14 L (4.40-5.60) 10*6/uL Hgb 12.1 L (13.0-17.0) g/dL Hct 39.5 L (39.6-50.0) % MCHC 30.6 L (32.0-37.0) g/dL Immature Gran # 1.63 H (0.00-0.04) 10*3/uL Neutrophils # (Manual) 13.38 H (1.3-7.7) k/uL Metamyelocytes # (Man) 0.17 H (0) k/uL Myelocytes # (Manual) 0.50 H (0) k/uL Sodium 134 L (137-145) mmol/L Potassium 2.6 L* (3.5-5.1) mmol/L Chloride 79 L (98-107) mmol/L Carbon Dioxide 45 H* (22-30) mmol/L BUN 35 H (9-20) mg/dL Glucose 348 H (74-99) mg/dL POC Glucose (mg/dL) 374 H (70-110) mg/dL Assessment and Plan Plan: Acute on chronic hypoxemic and hypercapnic respiratory failure, currently on Airvo, suspect secondary to an exacerbation of diastolic congestive heart failure and underlying obesity hypoventilation syndrome. The patient continues to be hypoxic on Airvo at 50 L and FiO2 of 70%. Chest x-ray remains unchanged with multifocal patchy airspace opacities. Oxygenation remains unchanged and the patient continues to be hypoxic despite being adequately diuresed and his fluid balance is significantly negative. CAT scan of the chest consistent with cardiomegaly a and pulmonary edema. Nonspecific right paratracheal lymph node was also noted. CHF with preserved LV function, no valvular abnormalities Severe hyperkalemia, being replaced Metabolic alkalosis secondary to diuresis and the patient is currently on Diamox Acute kidney injury, recovered, nephrology on the case History obstructive sleep apnea, unable to tolerate CPAP Morbid obesity, with a BMI of 45.2 kg/m History of hyperlipidemia Hypertension History of trisomy 21 Plan: Clinically unchanged compared to yesterday, however, the patient is responding well to diuresis and the patient is currently on Lasix 40 mg IV every 8 hours. Will continue the same regimen for now. CAT scan of the chest was noted and is consistent with CHF and pulmonary edema and will continue diuresis for now. Continued on Airvo high flow oxygen Continue IV Lasix and Zaroxolyn, Diamox was also added Obtain a CAT scan of the chest with contrast Monitor fluid balance Continue Diamox 500 mg IV every 12 hours Echocardiogram shows a preserved LV function Continue bronchodilators Heparin for DVT prophylaxis Encouraged to eat slowly and chew carefully We will continue to follow Time with Patient: Greater than 30
[2025-03-12 16:37] LABS: C Reactive Protein 5.6 mg/dL (<1.0)
[2025-03-12 16:58] LABS: Glucose,Whole Blood 303 mg/dL (70-110)
[2025-03-12 17:01] LABS: Potassium 2.4 mmol/L (3.5-5.1)
[2025-03-12] MEDS: POTASSIUM CHLORIDE 10 MEQ in WATER FOR INJECTION 1 100ML.BAG IVPB SCH (17:35)
[2025-03-12] MEDS: POTASSIUM CHLORIDE ER 20 MEQ TAB.ER PO STA (17:35)
[2025-03-12 20:21] LABS: Glucose,Whole Blood 274 mg/dL (70-110)
--- NOTE | 2025-03-13 03:28 | PN ---
PROGRESS NOTE DATE OF SERVICE: 03/12/2025 SUBJECTIVE: This is a 49-year-old gentleman who was admitted with acute hypoxic respiratory failure secondary to asthma and obesity hypoventilation syndrome, had a significant fluid overload, which is rather persistent. The chest CT, which I reviewed personally also showed cardiomegaly and pulmonary edema, also nonspecific mildly enlarged right paratracheal lymph nodes also noted. Serum procalcitonin is negative at this time. We started the patient on empiric broad-spectrum IV antibiotic because of the prolonged hospitalization. Potassium is severely diminished. PAST MEDICAL HISTORY: Could not be taken. REVIEW OF SYSTEMS: Could not be taken. CURRENT MEDICATIONS: Reviewed. PHYSICAL EXAMINATION: VITAL SIGNS: Pulse is 78, blood pressure 108/65, and respirations 20. HEENT: Conjunctivae normal. CARDIOVASCULAR: S1, S2. RESPIRATIONS: Bilateral scattered rhonchi. ABDOMEN: Soft. Obese, nontender. NERVOUS SYSTEM: Nonfocal. LABORATORY DATA: Noted. The patient is still on AIRVO. ASSESSMENT: 1. Acute hypoxic respiratory failure, hypercarbic secondary to severe pulmonary edema as well as obesity-hypoventilation syndrome as well as chronic CO2 retention. 2. On AIRVO, some acute asthma exacerbation rule out bilateral pneumonia, aspiration. 3. Acute renal failure. 4. Hypokalemia, severe. 5. History of congestive heart failure. 6. Hypertension. 7. Hyperlipidemia. 8. Down syndrome. 9. Extensive seborrheic dermatitis. RECOMMENDATIONS: Continue current management. Continue the high-dose diuretics. Continue with fluid to balance, bronchodilators, empiric antibiotics. Closely follow with multiple consultants, guarded prognosis. Further recommendations to follow. MMODL / IJN: [id number] /
[2025-03-13 06:12] LABS: Glucose,Whole Blood 273 mg/dL (70-110)
[2025-03-13 08:44] LABS: HCT 40.1 % (39.6-50.0); HGB 12.7 g/dL (13.0-17.0); MCH 29.7 pg (27.0-32.0); MCHC 31.7 g/dL (32.0-37.0); MCV 93.9 fL (80.0-97.0); Mean Platelet Volume 11.3 fL (9.5-12.2); Platelet Count 286 10*3/uL (140-440); RBC 4.27 10*6/uL (4.40-5.60); RDW 18.9 % (11.5-14.5); WBC 16.43 10*3/uL (4.50-10.00)
[2025-03-13 09:06] LABS: African American GFR (CKD) 73 (>60 ml/min/1.73 sqM); Blood Urea Nitrogen 50 mg/dL (9-20); Chloride 82 mmol/L (98-107); Glucose 229 mg/dL (74-99); Non-African American GFR(CKD) 63 (>60 ml/min/1.73 sqM); Sodium 137 mmol/L (137-145)
[2025-03-13 09:14] LABS: Anion Gap 12 mmol/L
[2025-03-13 09:21] LABS: Potassium 2.5 mmol/L (3.5-5.1)
[2025-03-13 09:23] LABS: Carbon Dioxide 43 mmol/L (22-30)
[2025-03-13 11:27] LABS: Band Neutrophils % 1 %; Lymphocytes # (M) 1.48 k/uL (1.0-4.8); Metamyelocytes # (M) 0.33 k/uL (0); Metamyelocytes % 2 %; Monocytes # (M) 0.82 k/uL (0-1.0); Myelocytes # (M) 0.66 k/uL (0); Myelocytes % 4 %; Neutrophils % (M) 80 %; Nucleated Red Blood Cells 0 /100 WBC (0-0); Total Cells Counted 200
[2025-03-13 11:29] LABS: Anisocytosis (M) Present; Spherocytes Present
[2025-03-13 11:42] LABS: Glucose,Whole Blood 212 mg/dL (70-110)
[2025-03-13] MEDS: POTASSIUM CHLORIDE ER 20 MEQ TAB.ER PO ONE (12:30)
[2025-03-13] MEDS ORDERED: Magnesium Replacement Protocol 1 EACH MISC MISCELLANE PRN (16:02)
[2025-03-13] MEDS ORDERED: Potassium Replacement Protocol 1 EACH MISC MISCELLANE PRN (16:02)
[2025-03-13 16:41] LABS: Glucose,Whole Blood 213 mg/dL (70-110)
--- NOTE | 2025-03-13 16:43 | P.PN ---
Subjective Progress Note Date: 03/13/25 Principal diagnosis: Reason for follow-up is possible pneumonia Patient is a 49-year-old male with a past medical history of GERD for hyperlipidemia reflux heart failure asthma and memory impairment with initial presentation the hospital for shortness of breath subsequently did have a low- grade fever on 03/10/2025 with a chest x-ray showing bibasilar acute infiltrate prompting this consultation On today's evaluation that is 03/13/2025,the patient did have resolution of his fever no fever have been recorded patient is currently breathing still requiring high flow nasal cannula oxygen seem to be more awake no chest pain no worsening cough vomiting has been reported. Patient white count 16.43 creatinine is 1.30 Objective - Vital Signs Vital signs: Vital Signs Temp 97.8 F 03/13/25 09:50 Pulse 65 03/13/25 15:12 Resp 18 03/13/25 15:12 BP 110/66 03/13/25 12:00 Pulse Ox 89 L 03/13/25 12:00 FiO2 70 03/13/25 15:12 Intake & Output 03/12/25 03/13/25 03/13/25 18:59 06:59 18:59 Intake Total 20 1100 260 Output Total 2600 1500 550 Balance -2580 -400 -290 Weight 113.5 kg Intake: IV 20 20 Invasive Line 7 20 20 Intake, IV Titration 100 Amount Piperacillin-Tazobactam 3 100 .375 gm In Sodium Chloride 0.9% 100 ml @ 25 mls/hr IVPB Q8HR [facility] Rx# :[id number] Oral 1000 240 Output: Urine 2600 1500 550 Other: Voiding Method Indwelling Catheter Indwelling Catheter Indwelling Catheter - Exam GENERAL DESCRIPTION: Middle-age male lying in bed in no distress RESPIRATORY SYSTEM: Unlabored breathing , decreased breath sounds at bases HEART: S1 S2 regular rate and rhythm , ABDOMEN: Soft , no tenderness - Labs CBC & Chem 7: 03/13/25 07:07 03/13/25 07:07 Labs: Abnormal Lab Results - Last 24 Hours (Table) 03/12/25 03/12/25 03/12/25 Range/Units 16:10 16:55 20:19 WBC (4.50-10.00) 10*3/uL RBC (4.40-5.60) 10*6/uL Hgb (13.0-17.0) g/dL MCHC (32.0-37.0) g/dL Immature Gran # (0.00-0.04) 10*3/uL Neutrophils # (Manual) (1.3-7.7) k/uL Metamyelocytes # (Man) (0) k/uL Myelocytes # (Manual) (0) k/uL Potassium 2.4 L* (3.5-5.1) mmol/L Chloride (98-107) mmol/L Carbon Dioxide (22-30) mmol/L BUN (9-20) mg/dL Creatinine (0.66-1.25) mg/dL Glucose (74-99) mg/dL POC Glucose (mg/dL) 303 H 274 H (70-110) mg/dL C-Reactive Protein 5.6 H (<1.0) mg/dL 03/13/25 03/13/25 03/13/25 Range/Units 06:11 07:07 07:07 WBC 16.43 H (4.50-10.00) 10*3/uL RBC 4.27 L (4.40-5.60) 10*6/uL Hgb 12.7 L (13.0-17.0) g/dL MCHC 31.7 L (32.0-37.0) g/dL Immature Gran # 1.19 H (0.00-0.04) 10*3/uL Neutrophils # (Manual) 13.30 H (1.3-7.7) k/uL Metamyelocytes # (Man) 0.33 H (0) k/uL Myelocytes # (Manual) 0.66 H (0) k/uL Potassium 2.5 L* (3.5-5.1) mmol/L Chloride 82 L (98-107) mmol/L Carbon Dioxide 43 H* (22-30) mmol/L BUN 50 H (9-20) mg/dL Creatinine 1.30 H (0.66-1.25) mg/dL Glucose 229 H (74-99) mg/dL POC Glucose (mg/dL) 273 H (70-110) mg/dL C-Reactive Protein (<1.0) mg/dL 03/13/25 03/13/25 Range/Units 11:41 16:39 WBC (4.50-10.00) 10*3/uL RBC (4.40-5.60) 10*6/uL Hgb (13.0-17.0) g/dL MCHC (32.0-37.0) g/dL Immature Gran # (0.00-0.04) 10*3/uL Neutrophils # (Manual) (1.3-7.7) k/uL Metamyelocytes # (Man) (0) k/uL Myelocytes # (Manual) (0) k/uL Potassium (3.5-5.1) mmol/L Chloride (98-107) mmol/L Carbon Dioxide (22-30) mmol/L BUN (9-20) mg/dL Creatinine (0.66-1.25) mg/dL Glucose (74-99) mg/dL POC Glucose (mg/dL) 212 H 213 H (70-110) mg/dL C-Reactive Protein (<1.0) mg/dL Assessment and Plan (1) Aspiration pneumonia Current Visit: Yes Status: Acute Code(s): J69.0 - PNEUMONITIS DUE TO INHALATION OF FOOD AND VOMIT SNOMED Code(s): 595073477 Plan: 1patient presented to the hospital initially on 02/24/2025 for evaluation of increasing shortness of breath and the patient has been under care of pulmonary and cardiology services as well as admitting team patient did have a low-grade fever on 03/10/2025 and also had worsening of his white count, with a chest x-ray concerning for acute bibasilar infiltrate question of possible aspiration pneumonia/gram-negative 2-patient did have resolution of his fever white count is still up 8 will monitor closely for now continue Zosyn and aspiration precaution Dictation was produced using [employer] dictation software. please excuse any grammatical, word or spelling errors. Time with Patient: Less than 30
[2025-03-13] MEDS: POTASSIUM CHLORIDE ER 20 MEQ TAB.ER PO STA (17:10)
[2025-03-13 18:45] LABS: Potassium 2.7 mmol/L (3.5-5.1)
--- NOTE | 2025-03-13 18:45 | XR ---
EXAMINATION TYPE: XR chest 1V portable DATE OF EXAM: 03/13/2025 6:39 PM COMPARISON: Prior chest radiograph 03/11/2045. CLINICAL INDICATION: Male, 49 years old with history of abd pain; [facility] TECHNIQUE: XR chest 1V portable Frontal view of the chest. FINDINGS: Cardiomegaly and pulmonary vascular congestive changes. No sizable right-sided pleural effusion. Possible small left pleural effusion. Bibasilar atelectasis/ scarring. No pneumothorax. No acute osseous abnormality. IMPRESSION: Cardiomegaly and pulmonary vascular congestion with small left pleural effusion. Bibasilar scarring/a telectasis. [facility], , 03/13/2025 6:43 PM
--- NOTE | 2025-03-13 19:21 | P.PN ---
Subjective Progress Note Date: 03/13/25 On 03/08/2025, the patient is being seen for a follow-up. The patient is still in acute hypoxic kar failure currently on Airvo 40 L with FiO2 of 50%. A follow-up chest x-ray was done today and the patient was found to have multifocal airspace opacities. No evidence of any pleural effusion. No evidence of pneumothorax. The patient currently is on no antibiotics. No sputum samples are available. The white cell count is at 9.8 with a hemoglobin 12 from 03/05/2025. His previous blood gas was also consistent with acute on chronic hypoxic and hypercapnic respiratory failure. This was done while the patient was on a BiPAP. Most recent electrolytes show a serum bicarb of 39, BUN 23 with a creatinine of 0.7. The patient is on DuoNeb updrafts. The patient is on Lasix 40 mg p.o. twice a day. The fluid balance is -2.2 L over the past 24 hours. His echocardiogram from 02/25/2025 showed a preserved LV function with an ejection fraction of 60 to 65%, no significant valvular heart disease. Overall chest x-ray findings have been essentially unchanged since his admission. On 03/09/2025, the patient remains hypoxic and the patient remains on Airvo 40 L with FiO2 of 50%. Chest x-ray showing scattered bilateral pulmonary infiltrates. The patient has trisomy 21. History is limited. No antibiotic coverage. No chest pain. No pleurisy. No hemoptysis. Hemodynamically stable. The white cell count is at 11.2 with a hemoglobin of 13 and a platelet count of 238. Electrolytes are all stable. Serum bicarb is at 38, BUN is 15 with a creatinine of 0.7. No other significant events overnight. On 03/10/2025, patient is being seen for a follow-up. The patient remains on Airvo at 40 L with an FiO2 of 55%. The patient had a follow-up chest x-ray done today the findings are essentially stable with bilateral social pulmonary filtrates. Meanwhile, he was placed on diuretics and the patient is producing excellent urine output. He remains in negative fluid balance. For now, the patient is on Lasix 40 mg IV every 8 hours and patient is also on Zaroxolyn 2.5 mg p.o. daily. Fluid balance is negative. White cell count at 13.1 with a hemoglobin 12.5 and the patient's platelet count is up to 44. BUN is 21 with a creatinine of 0.9 and sodium is at 134. Clinically unchanged. No dyspnea at rest. Tolerating diet. 03/11/2025, the patient is being seen for a. The patient remains on Airvo and is currently at 50 L and FiO2 of 70%. He has been diuresed effectively with IV Lasix. He is producing adequate amount of urine output. Nevertheless, there is no significant improvement in the patient's oxygenation. Noted his fluid balance has been -3.9 L over the past 24 hours and the patient remains on Lasix 40 mg IV every 8 hours. He is also on Zaroxolyn 2.5 mg p.o. daily. The white cell count is 16.4 with a hemoglobin 12.4 and a platelet count of 246. Serum bicarbonate 42 with a sodium level of 135 and a potassium level of 3.5. Blood sugar is up to 88. BUN 30 with a creatinine of 0.9. Remains on bronchodilators. Remains on a combination of Perforomist and Pulmicort nebul ized treatments twice a day. Remains on IV Solu-Medrol 60 mg every 6 hours. A follow-up chest x-ray was done today and the patient was found to have similar multifocal airspace opacities that remain essentially unchanged. On 03/12/2025, the patient is being seen for a follow-up. The patient remains on Airvo at 50 L with an FiO2 of 70%. He continues to diurese well with diuretics and the patient is a negative fluid balance of 2.6 L over the past 24 hours. He remains on Diamox, Lasix 40 mg IV every 8 hours and Zaroxolyn 2.5 mg p.o. daily. Nevertheless, there has been no significant improvement in the patient's oxygenation. Based on that, a CAT scan of the chest was obtained and the CAT scan showed cardiomegaly and findings consistent with pulmonary edema. There was some motion artifact. There is also a mildly enlarged right paratracheal lymph node. Hemodynamically stable. Potassium level is low at 2.6 and needs to be replaced. Serum bicarbonate is at 45. Sodium is at 134, WBC count 16.7 with a hemoglobin 12.1 and a platelet count of 280. He is a case of trisomy 21. Does not seem to be in respiratory distress at rest. Breathing effort are quite shallow. On 03/13/2025, the patient is not doing much in progress. He remains on Airvo, 50 L with an FiO2 of 70%. He has diuresed aggressively and the patient is negative fluid balance of around 2.9 L. Meanwhile, there has been some electrolyte disturbances with aggressive diuresis. Potassium level dropped down to 2.5 and a sodium levels at 137, BUN is 50 with a creatinine of 1.3 and the patient's white cell count is 16.4 with hemoglobin 12.7 and a platelet count of 286. Serum bicarb is at 43. The patient is on Diamox. The patient is also on a combination of Lasix and Zaroxolyn. Clinically unchanged. CAT scan findings was consistent with CHF and interstitial edema. Nevertheless, the response to diuretics have been essentially suboptimal. Remains on bronchodilators. Remains on IV Solu-Medrol. Remains on Lantus insulin 20 units with a sliding scale coverage. The patient is also on empiric antibiotic coverage which was done on 03/11/2025 although there is no clear indication for an underlying infect ion. The white cell count remains mildly elevated and white cell count is stable at 16. Objective - Vital Signs Vital signs: Vital Signs Temp 97.8 F 03/13/25 09:50 Pulse 66 03/13/25 09:50 Resp 20 03/13/25 09:50 BP 119/70 03/13/25 09:50 Pulse Ox 92 L 03/13/25 09:50 FiO2 75 03/13/25 07:45 Intake & Output 03/12/25 03/13/25 03/13/25 18:59 06:59 18:59 Intake Total 20 1100 10 Output Total 2600 1500 Balance -2580 -400 10 Weight 113.5 kg Intake: IV 20 10 Invasive Line 7 20 10 Intake, IV Titration 100 Amount Piperacillin-Tazobactam 3 100 .375 gm In Sodium Chloride 0.9% 100 ml @ 25 mls/hr IVPB Q8HR [facility] Rx# :[id number] Oral 1000 Output: Urine 2600 1500 Other: Voiding Method Indwelling Catheter Indwelling Catheter Indwelling Catheter - Exam No acute distress, oriented 3. Currently on Airvo, 50 L of FiO2 of 70%%. He is a trisomy 21 with typical Down's features. Body mass index 48.2. HEENT examination is grossly unremarkable. Mucous membranes are moist. No oral lesions. Airvo cannula in place. Neck supple. Full range of motion. No adenopathy thyromegaly or neck vein distention. Cardiovascular examination reveals regular rhythm rate. S1-S2 normal. No S3 or S4. No discernible murmur noted. Lungs reveal bilateral scattered rhonchi. No wheezes. No crackles. Breath sounds equal bilaterally. Abdomen soft bowel sounds are heard. No masses or tenderness. Extremities are intact. No cyanosis clubbing or edema. Skin with seborrheic keratosis. Neurologic examination is brief but nonfocal. - Labs CBC & Chem 7: 03/13/25 07:07 03/13/25 17:52 Labs: Abnormal Lab Results - Last 24 Hours (Table) 03/12/25 03/12/25 03/12/25 Range/Units 11:43 16:10 16:55 WBC (4.50-10.00) 10*3/uL RBC (4.40-5.60) 10*6/uL Hgb (13.0-17.0) g/dL MCHC (32.0-37.0) g/dL Immature Gran # (0.00-0.04) 10*3/uL Potassium 2.4 L* (3.5-5.1) mmol/L Chloride (98-107) mmol/L Carbon Dioxide (22-30) mmol/L BUN (9-20) mg/dL Creatinine (0.66-1.25) mg/dL Glucose (74-99) mg/dL POC Glucose (mg/dL) 222 H 303 H (70-110) mg/dL C-Reactive Protein 5.6 H (<1.0) mg/dL 03/12/25 03/13/25 03/13/25 Range/Units 20:19 06:11 07:07 WBC (4.50-10.00) 10*3/uL RBC (4.40-5.60) 10*6/uL Hgb (13.0-17.0) g/dL MCHC (32.0-37.0) g/dL Immature Gran # (0.00-0.04) 10*3/uL Potassium 2.5 L* (3.5-5.1) mmol/L Chloride 82 L (98-107) mmol/L Carbon Dioxide 43 H* (22-30) mmol/L BUN 50 H (9-20) mg/dL Creatinine 1.30 H (0.66-1.25) mg/dL Glucose 229 H (74-99) mg/dL POC Glucose (mg/dL) 274 H 273 H (70-110) mg/dL C-Reactive Protein (<1.0) mg/dL 03/13/25 Range/Units 07:07 WBC 16.43 H (4.50-10.00) 10*3/uL RBC 4.27 L (4.40-5.60) 10*6/uL Hgb 12.7 L (13.0-17.0) g/dL MCHC 31.7 L (32.0-37.0) g/dL Immature Gran # 1.19 H (0.00-0.04) 10*3/uL Potassium (3.5-5.1) mmol/L Chloride (98-107) mmol/L Carbon Dioxide (22-30) mmol/L BUN (9-20) mg/dL Creatinine (0.66-1.25) mg/dL Glucose (74-99) mg/dL POC Glucose (mg/dL) (70-110) mg/dL C-Reactive Protein (<1.0) mg/dL Assessment and Plan Plan: Acute on chronic hypoxemic and hypercapnic respiratory failure, currently on Airvo, suspect secondary to an exacerbation of diastolic congestive heart failure and underlying obesity hypoventilation syndrome. The patient continues to be hypoxic on Airvo at 50 L and FiO2 of 70%. Chest x-ray remains unchanged with multifocal patchy airspace opacities. Oxygenation remains unchanged and the patient continues to be hypoxic despite being adequately diuresed and his fluid balance is significantly negative. CAT scan of the chest consistent with cardiomegaly a and pulmonary edema. Nonspecific right paratracheal lymph node was also noted. CHF with preserved LV function, no valvular abnormalities Severe hyperkalemia, related to diuresis, K is being replaced Metabolic alkalosis secondary to diuresis and the patient is currently on Diamox Acute kidney injury, recovered, nephrology on the case History obstructive sleep apnea, unable to tolerate CPAP Morbid obesity, with a BMI of 45.2 kg/m History of hyperlipidemia Hypertension History of trisomy 21 Plan: Clinically unchanged Oxygenation remains impaired Adequate diuresis yet there is no improvement in the patient's oxygenation. Zosyn was added Developed hypokalemia and prerenal azotemia the patient will be taken off the Zaroxolyn and Lasix Continue Diamox. Continued on Airvo high flow oxygen CAT scan of the chest with contrast was noted Monitor fluid balance Echocardiogram shows a preserved LV function Continue bronchodilators Heparin for DVT prophylaxis Encouraged to eat slowly and chew carefully We will continue to follow Prognosis poor specially with failure to respond to therapy. Time with Patient: Greater than 30
[2025-03-13 20:09] LABS: Glucose,Whole Blood 256 mg/dL (70-110)
[2025-03-13] MEDS: POTASSIUM CHLORIDE ER 20 MEQ TAB.ER PO SCH (20:34)
[2025-03-13] MEDS: LACTULOSE 20 GM/30 ML CUP PO SCH (20:34)
--- NOTE | 2025-03-14 02:31 | PN ---
PROGRESS NOTE DATE OF SERVICE: 03/13/2025 SUBJECTIVE: This 49-year-old gentleman admitted with acute hypoxic respiratory failure, also had obesity hypoventilation syndrome and chronic CO2 retention. The patient is on high- flow AIRVO at this time. CT scan showed no evidence of pulmonary edema. The patient has severe hypokalemia. PAST MEDICAL HISTORY: Reviewed. REVIEW OF SYSTEMS: Could not be taken. CURRENT MEDICATIONS: Reviewed. PHYSICAL EXAMINATION: VITAL SIGNS: Pulse is 65, blood pressure 130/60, respirations 20. HEENT: Conjunctivae normal. RESPIRATORY: Bilateral scattered rhonchi. ABDOMEN: Soft. LABORATORY DATA: Reviewed. ASSESSMENT: 1. Acute hypoxic respiratory failure, hypercarbic respiratory secondary to pulmonary edema as well as obesity-hypoventilation syndrome as well as chronic CO2 retention. 2. On AIRVO with an acute asthma exacerbation, rule out bilateral pneumonia aspiration. 3. Acute renal failure. 4. Hypokalemia, severe. 5. History of congestive heart failure. 6. Hypertension. 7. Hyperlipidemia. 8. Down syndrome. 9. Extensive seborrheic dermatitis. RECOMMENDATIONS: Continue current management and treatment. Otherwise, at this time, the patient has abdominal symptoms. I would recommend an acute abdominal series. Continue to monitor. Supplement potassium, Mag and potassium replacement schedules. Guarded prognosis. MMODL / IJN: [id number] /
[2025-03-14 06:16] LABS: Glucose,Whole Blood 247 mg/dL (70-110)
[2025-03-14 07:23] LABS: HCT 42.4 % (39.6-50.0); HGB 13.4 g/dL (13.0-17.0); MCH 29.3 pg (27.0-32.0); MCHC 31.6 g/dL (32.0-37.0); MCV 92.8 fL (80.0-97.0); Mean Platelet Volume 10.7 fL (9.5-12.2); Platelet Count 263 10*3/uL (140-440); RBC 4.57 10*6/uL (4.40-5.60); RDW 18.3 % (11.5-14.5); WBC 15.24 10*3/uL (4.50-10.00)
[2025-03-14 07:37] LABS: African American GFR (CKD) 88 (>60 ml/min/1.73 sqM); Anion Gap 8 mmol/L; Blood Urea Nitrogen 54 mg/dL (9-20); Calcium 9.1 mg/dL (8.4-10.2); Carbon Dioxide 37 mmol/L (22-30); Chloride 89 mmol/L (98-107); Glucose 219 mg/dL (74-99); Non-African American GFR(CKD) 76 (>60 ml/min/1.73 sqM); Sodium 134 mmol/L (137-145)
[2025-03-14 07:39] LABS: Potassium 3.9 mmol/L (3.5-5.1)
[2025-03-14 07:40] LABS: Magnesium 2.6 mg/dL (1.6-2.3)
[2025-03-14 09:12] LABS: Lymphocytes # (M) 2.44 k/uL (1.0-4.8); Metamyelocytes # (M) 0.15 k/uL (0); Metamyelocytes % 1 %; Monocytes # (M) 0.91 k/uL (0-1.0); Myelocytes # (M) 0.46 k/uL (0); Myelocytes % 3 %; Neutrophils # (M) 11.43 k/uL (1.3-7.7); Neutrophils % (M) 75 %; Nucleated Red Blood Cells 0 /100 WBC (0-0); Total Cells Counted 200
[2025-03-14 09:21] LABS: Anisocytosis (M) Present; Spherocytes Present
[2025-03-14 11:21] LABS: Glucose,Whole Blood 266 mg/dL (70-110)
--- NOTE | 2025-03-14 14:17 | P.PN ---
Subjective Progress Note Date: 03/14/25 On 03/08/2025, the patient is being seen for a follow-up. The patient is still in acute hypoxic kar failure currently on Airvo 40 L with FiO2 of 50%. A follow-up chest x-ray was done today and the patient was found to have multifocal airspace opacities. No evidence of any pleural effusion. No evidence of pneumothorax. The patient currently is on no antibiotics. No sputum samples are available. The white cell count is at 9.8 with a hemoglobin 12 from 03/05/2025. His previous blood gas was also consistent with acute on chronic hypoxic and hypercapnic respiratory failure. This was done while the patient was on a BiPAP. Most recent electrolytes show a serum bicarb of 39, BUN 23 with a creatinine of 0.7. The patient is on DuoNeb updrafts. The patient is on Lasix 40 mg p.o. twice a day. The fluid balance is -2.2 L over the past 24 hours. His echocardiogram from 02/25/2025 showed a preserved LV function with an ejection fraction of 60 to 65%, no significant valvular heart disease. Overall chest x-ray findings have been essentially unchanged since his admission. On 03/09/2025, the patient remains hypoxic and the patient remains on Airvo 40 L with FiO2 of 50%. Chest x-ray showing scattered bilateral pulmonary infiltrates. The patient has trisomy 21. History is limited. No antibiotic coverage. No chest pain. No pleurisy. No hemoptysis. Hemodynamically stable. The white cell count is at 11.2 with a hemoglobin of 13 and a platelet count of 238. Electrolytes are all stable. Serum bicarb is at 38, BUN is 15 with a creatinine of 0.7. No other significant events overnight. On 03/10/2025, patient is being seen for a follow-up. The patient remains on Airvo at 40 L with an FiO2 of 55%. The patient had a follow-up chest x-ray done today the findings are essentially stable with bilateral social pulmonary filtrates. Meanwhile, he was placed on diuretics and the patient is producing excellent urine output. He remains in negative fluid balance. For now, the patient is on Lasix 40 mg IV every 8 hours and patient is also on Zaroxolyn 2.5 mg p.o. daily. Fluid balance is negative. White cell count at 13.1 with a hemoglobin 12.5 and the patient's platelet count is up to 44. BUN is 21 with a creatinine of 0.9 and sodium is at 134. Clinically unchanged. No dyspnea at rest. Tolerating diet. 03/11/2025, the patient is being seen for a. The patient remains on Airvo and is currently at 50 L and FiO2 of 70%. He has been diuresed effectively with IV Lasix. He is producing adequate amount of urine output. Nevertheless, there is no significant improvement in the patient's oxygenation. Noted his fluid balance has been -3.9 L over the past 24 hours and the patient remains on Lasix 40 mg IV every 8 hours. He is also on Zaroxolyn 2.5 mg p.o. daily. The white cell count is 16.4 with a hemoglobin 12.4 and a platelet count of 246. Serum bicarbonate 42 with a sodium level of 135 and a potassium level of 3.5. Blood sugar is up to 88. BUN 30 with a creatinine of 0.9. Remains on bronchodilators. Remains on a combination of Perforomist and Pulmicort nebul ized treatments twice a day. Remains on IV Solu-Medrol 60 mg every 6 hours. A follow-up chest x-ray was done today and the patient was found to have similar multifocal airspace opacities that remain essentially unchanged. On 03/12/2025, the patient is being seen for a follow-up. The patient remains on Airvo at 50 L with an FiO2 of 70%. He continues to diurese well with diuretics and the patient is a negative fluid balance of 2.6 L over the past 24 hours. He remains on Diamox, Lasix 40 mg IV every 8 hours and Zaroxolyn 2.5 mg p.o. daily. Nevertheless, there has been no significant improvement in the patient's oxygenation. Based on that, a CAT scan of the chest was obtained and the CAT scan showed cardiomegaly and findings consistent with pulmonary edema. There was some motion artifact. There is also a mildly enlarged right paratracheal lymph node. Hemodynamically stable. Potassium level is low at 2.6 and needs to be replaced. Serum bicarbonate is at 45. Sodium is at 134, WBC count 16.7 with a hemoglobin 12.1 and a platelet count of 280. He is a case of trisomy 21. Does not seem to be in respiratory distress at rest. Breathing effort are quite shallow. On 03/13/2025, the patient is not doing much in progress. He remains on Airvo, 50 L with an FiO2 of 70%. He has diuresed aggressively and the patient is negative fluid balance of around 2.9 L. Meanwhile, there has been some electrolyte disturbances with aggressive diuresis. Potassium level dropped down to 2.5 and a sodium levels at 137, BUN is 50 with a creatinine of 1.3 and the patient's white cell count is 16.4 with hemoglobin 12.7 and a platelet count of 286. Serum bicarb is at 43. The patient is on Diamox. The patient is also on a combination of Lasix and Zaroxolyn. Clinically unchanged. CAT scan findings was consistent with CHF and interstitial edema. Nevertheless, the response to diuretics have been essentially suboptimal. Remains on bronchodilators. Remains on IV Solu-Medrol. Remains on Lantus insulin 20 units with a sliding scale coverage. The patient is also on empiric antibiotic coverage which was done on 03/11/2025 although there is no clear indication for an underlying infect ion. The white cell count remains mildly elevated and white cell count is stable at 16. On 03/14/2025, the patient has been aggressively diuresed over the past several days. I took him off the Airvo and I put him on 15 L of oxygen by nasal cannula and his pulse ox is there is an order of 95%. I also stop the diuretics with the exception of Diamox. The patient continues to produce good urine output. He is -1.8 L of fluid balance negative over the past 24 hours. Serum bicarb is at 37. BUN is 54 with a creatinine of 1.1. Sodium level is 134. Potassium is at 3.5. White cell count is at 15.2. He is covered empirically with IV Zosyn. Objective - Vital Signs Vital signs: Vital Signs Temp 97.8 F 03/14/25 09:42 Pulse 61 03/14/25 10:09 Resp 20 03/14/25 10:09 BP 114/70 03/14/25 09:42 Pulse Ox 91 L 03/14/25 09:42 FiO2 70 03/14/25 09:42 Intake & Output 05/17/25 05/18/25 05/18/25 18:59 06:59 18:59 Intake Total 260 257 10 Output Total 1150 1200 Balance -890 -943 10 Weight 111 kg Intake: IV 20 20 10 Invasive Line 7 20 20 10 Oral 240 237 Output: Urine 1150 1200 Other: Voiding Method Indwelling Catheter Indwelling Catheter Indwelling Catheter - Exam No acute distress, oriented 3. Currently on 15 L high flow oxygen and the patient was taken off the Airvo. He is a trisomy 21 with typical Down's features. Body mass index 48.2. HEENT examination is grossly unremarkable. Mucous membranes are moist. No oral lesions. Airvo cannula in place. Neck supple. Full range of motion. No adenopathy thyromegaly or neck vein distention. Cardiovascular examination reveals regular rhythm rate. S1-S2 normal. No S3 or S4. No discernible murmur noted. Lungs reveal bilateral scattered rhonchi. No wheezes. No crackles. Breath sounds equal bilaterally. Abdomen soft bowel sounds are heard. No masses or tenderness. Extremities are intact. No cyanosis clubbing or edema. Skin with seborrheic keratosis. Neurologic examination is brief but nonfocal. - Labs CBC & Chem 7: 03/14/25 07:14 03/14/25 07:14 Labs: Abnormal Lab Results - Last 24 Hours (Table) 03/13/25 03/13/25 03/13/25 Range/Units 07:07 11:41 16:39 WBC (4.50-10.00) 10*3/uL MCHC (32.0-37.0) g/dL Immature Gran # (0.00-0.04) 10*3/uL Neutrophils # (Manual) 13.30 H (1.3-7.7) k/uL Metamyelocytes # (Man) 0.33 H (0) k/uL Myelocytes # (Manual) 0.66 H (0) k/uL Sodium (137-145) mmol/L Potassium (3.5-5.1) mmol/L Chloride (98-107) mmol/L Carbon Dioxide (22-30) mmol/L BUN (9-20) mg/dL Glucose (74-99) mg/dL POC Glucose (mg/dL) 212 H 213 H (70-110) mg/dL Magnesium (1.6-2.3) mg/dL 03/13/25 03/13/25 03/14/25 Range/Units 17:52 20:08 06:14 WBC (4.50-10.00) 10*3/uL MCHC (32.0-37.0) g/dL Immature Gran # (0.00-0.04) 10*3/uL Neutrophils # (Manual) (1.3-7.7) k/uL Metamyelocytes # (Man) (0) k/uL Myelocytes # (Manual) (0) k/uL Sodium 134 L (137-145) mmol/L Potassium 2.7 L* (3.5-5.1) mmol/L Chloride 81 L (98-107) mmol/L Carbon Dioxide 38 H (22-30) mmol/L BUN (9-20) mg/dL Glucose (74-99) mg/dL POC Glucose (mg/dL) 256 H 247 H (70-110) mg/dL Magnesium (1.6-2.3) mg/dL 03/14/25 03/14/25 Range/Units 07:14 07:14 WBC 15.24 H (4.50-10.00) 10*3/uL MCHC 31.6 L (32.0-37.0) g/dL Immature Gran # 0.93 H (0.00-0.04) 10*3/uL Neutrophils # (Manual) 11.43 H (1.3-7.7) k/uL Metamyelocytes # (Man) 0.15 H (0) k/uL Myelocytes # (Manual) 0.46 H (0) k/uL Sodium 134 L (137-145) mmol/L Potassium (3.5-5.1) mmol/L Chloride 89 L (98-107) mmol/L Carbon Dioxide 37 H (22-30) mmol/L BUN 54 H (9-20) mg/dL Glucose 219 H (74-99) mg/dL POC Glucose (mg/dL) (70-110) mg/dL Magnesium 2.6 H (1.6-2.3) mg/dL Microbiology - Last 24 Hours (Table) 03/12/25 16:10 Blood Culture - Preliminary Blood Assessment and Plan Plan: Acute on chronic hypoxemic and hypercapnic respiratory failure, currently on Airvo, suspect secondary to an exacerbation of diastolic congestive heart failure and underlying obesity hypoventilation syndrome. The patient continues to be hypoxic on Airvo at 50 L and FiO2 of 70%. Chest x-ray remains unchanged with multifocal patchy airspace opacities. CAT scan of the chest consistent with cardiomegaly a and pulmonary edema. Nonspecific right paratracheal lymph node was also noted. The patient was aggressively diuresed. Subsequently, the patient was taken off the Airvo this morning and placed on 15 L of oxygen by nasal cannula. Suspect in addition a intracardiac shunt as the patient has not been seeing massive improvement in his oxygenation while being on Airvo. CHF with preserved LV function, no valvular abnormalities Severe hyperkalemia, related to diuresis, K was replaced Metabolic alkalosis secondary to diuresis and the patient is currently on Diamox Acute kidney injury, recovered, nephrology on the case History obstructive sleep apnea, unable to tolerate CPAP Morbid obesity, with a BMI of 45.2 kg/m History of hyperlipidemia Hypertension History of trisomy 21 Plan: Oxygenation is improved and the patient is currently on 15 L of O2 nasal cannula and he is off the Airvo Adequate diuresis Suspect an intracardiac shunt Zosyn was added, empiric basis Currently off Zaroxolyn and Lasix Continue Diamox for another 24 hours and then discontinue CAT scan of the chest with contrast was noted Monitor fluid balance Echocardiogram shows a preserved LV function Continue bronchodilators Heparin for DVT prophylaxis Encouraged to eat slowly and chew carefully We will continue to follow Prognosis poor Time with Patient: Greater than 30
--- NOTE | 2025-03-14 15:44 | P.PN ---
Subjective Progress Note Date: 03/14/25 Principal diagnosis: Reason for follow-up is possible pneumonia Patient is a 49-year-old male with a past medical history of GERD for hyperlipidemia reflux heart failure asthma and memory impairment with initial presentation the hospital for shortness of breath subsequently did have a low- grade fever on 03/10/2025 with a chest x-ray showing bibasilar acute infiltrate prompting this consultation On today's evaluation that is 03/14/2025,the patient remains to be afebrile, patient is on 18 L high flow nasal cannula supplemental oxygen and does not seem to be any respiratory distress no worsening, vomiting has been reported. Patient white count is 15.24 creatinine is 1.12 blood culture has been negative Objective - Vital Signs Vital signs: Vital Signs Temp 97.8 F 03/14/25 09:42 Pulse 65 03/14/25 15:34 Resp 20 03/14/25 14:00 BP 100/54 03/14/25 12:07 Pulse Ox 92 L 03/14/25 15:25 FiO2 70 03/14/25 09:42 Intake & Output 03/13/25 03/14/25 03/14/25 18:59 06:59 18:59 Intake Total 260 257 20 Output Total 1150 1200 675 Balance -686 -949 -836 Weight 111 kg Intake: IV 20 20 20 Invasive Line 7 20 20 20 Oral 240 237 Output: Urine 1150 1200 675 Other: Voiding Method Indwelling Catheter Indwelling Catheter Indwelling Catheter # Bowel Movements 1 - Exam GENERAL DESCRIPTION: Middle-age male lying in bed in no distress RESPIRATORY SYSTEM: Unlabored breathing , decreased breath sounds at bases HEART: S1 S2 regular rate and rhythm , ABDOMEN: Soft , no tenderness - Labs CBC & Chem 7: 03/14/25 07:14 03/14/25 07:14 Labs: Abnormal Lab Results - Last 24 Hours (Table) 03/13/25 03/13/25 03/13/25 Range/Units 16:39 17:52 20:08 WBC (4.50-10.00) 10*3/uL MCHC (32.0-37.0) g/dL Immature Gran # (0.00-0.04) 10*3/uL Neutrophils # (Manual) (1.3-7.7) k/uL Metamyelocytes # (Man) (0) k/uL Myelocytes # (Manual) (0) k/uL Sodium 134 L (137-145) mmol/L Potassium 2.7 L* (3.5-5.1) mmol/L Chloride 81 L (98-107) mmol/L Carbon Dioxide 38 H (22-30) mmol/L BUN (9-20) mg/dL Glucose (74-99) mg/dL POC Glucose (mg/dL) 213 H 256 H (70-110) mg/dL Magnesium (1.6-2.3) mg/dL 03/14/25 03/14/25 03/14/25 Range/Units 06:14 07:14 07:14 WBC 15.24 H (4.50-10.00) 10*3/uL MCHC 31.6 L (32.0-37.0) g/dL Immature Gran # 0.93 H (0.00-0.04) 10*3/uL Neutrophils # (Manual) 11.43 H (1.3-7.7) k/uL Metamyelocytes # (Man) 0.15 H (0) k/uL Myelocytes # (Manual) 0.46 H (0) k/uL Sodium 134 L (137-145) mmol/L Potassium (3.5-5.1) mmol/L Chloride 89 L (98-107) mmol/L Carbon Dioxide 37 H (22-30) mmol/L BUN 54 H (9-20) mg/dL Glucose 219 H (74-99) mg/dL POC Glucose (mg/dL) 247 H (70-110) mg/dL Magnesium 2.6 H (1.6-2.3) mg/dL 03/14/25 Range/Units 11:20 WBC (4.50-10.00) 10*3/uL MCHC (32.0-37.0) g/dL Immature Gran # (0.00-0.04) 10*3/uL Neutrophils # (Manual) (1.3-7.7) k/uL Metamyelocytes # (Man) (0) k/uL Myelocytes # (Manual) (0) k/uL Sodium (137-145) mmol/L Potassium (3.5-5.1) mmol/L Chloride (98-107) mmol/L Carbon Dioxide (22-30) mmol/L BUN (9-20) mg/dL Glucose (74-99) mg/dL POC Glucose (mg/dL) 266 H (70-110) mg/dL Magnesium (1.6-2.3) mg/dL Microbiology - Last 24 Hours (Table) 03/12/25 16:10 Blood Culture - Preliminary Blood Assessment and Plan (1) Aspiration pneumonia Current Visit: Yes Status: Acute Code(s): J69.0 - PNEUMONITIS DUE TO INHALATION OF FOOD AND VOMIT SNOMED Code(s): 719358786 Plan: 1patient presented to the hospital initially on 02/24/2025 for evaluation of increasing shortness of breath and the patient has been under care of pulmonary and cardiology services as well as admitting team patient did have a low-grade fever on 03/10/2025 and also had worsening of his white count, with a chest x-ray concerning for acute bibasilar infiltrate question of possible aspiration pneumonia/gram-negative 2-patient did have resolution of his fever white count is trending down continue with Zosyn and monitor clinical course closely Dictation was produced using [employer] dictation software. please excuse any grammatical, word or spelling errors. Time with Patient: Less than 30
[2025-03-14 16:00] LABS: Glucose,Whole Blood 213 mg/dL (70-110)
[2025-03-14 20:03] LABS: Glucose,Whole Blood 242 mg/dL (70-110)
--- NOTE | 2025-03-15 06:00 | PN ---
PROGRESS NOTE DATE OF SERVICE: 03/14/2025 SUBJECTIVE: This 49-year-old gentleman admitted with significant CHF and acute hypoxic respiratory failure, on AIRVO for last several days. Today, the patient was able to titrate to be down to high-flow oxygen 15 L nasal cannula. Chest x-ray showed still bilateral lesions with some atelectasis also. PAST MEDICAL HISTORY: Reviewed. REVIEW OF SYSTEMS: Could not be taken. CURRENT MEDICATIONS: Reviewed. PHYSICAL EXAMINATION: VITAL SIGNS: Pulse is 56, blood pressure 100/54, respirations 20. HEENT: Conjunctivae normal. CARDIOVASCULAR: S1, S2. RESPIRATORY: Bilateral scattered rhonchi. ABDOMEN: Soft. LABORATORY DATA: Potassium 3.9 rest of the labs are noted. ASSESSMENT: 1. Acute hypoxic respiratory failure, hypercarbic secondary to pulmonary edema as well as obesity-hypoventilation syndrome as well as CO2 retention. 2. On AIRVO status post with acute asthma exacerbation, rule out bilateral pneumonia. 3. Acute renal failure. 4. Hypokalemia, severe. 5. History of congestive heart failure. 6. Hypertension. 7. Hyperlipidemia. 8. History of Down syndrome. 9. Extensive seborrheic dermatitis. RECOMMENDATIONS: Continue current management and treatment. Continue with IV Lasix. Also, recommend barium swallow if possible if the patient cooperates to rule out the possibility of aspiration. Otherwise, continue rest of medications. Prognosis guarded. Further recommendations to follow. MMODL / IJN: [id number] /
[2025-03-15 06:13] LABS: Glucose,Whole Blood 197 mg/dL (70-110)
--- NOTE | 2025-03-15 10:30 | XR ---
EXAMINATION TYPE: XR abdomen acute w cxr DATE OF EXAM: 03/15/2025 10:18 AM COMPARISON: 03/13/2025 chestNone. CLINICAL INDICATION: Male, 49 years old with history of abd pain; [facility] TECHNIQUE: Two radiographic views of the abdomen (upright and supine) and a frontal chest radiograph were obtained. FINDINGS: Heart mildly enlarged. Perihilar and interstitial densities and patchy bibasilar opacities. The inter stitium shows some improvement from prior. Hyperinflation. Patient's large body habitus and radiculitis causes some limitation in assessment. No free intraperit mo air is identified. Gas in colon and small bowel throughout. Cecum is dilated up to 11.0 cm. Transverse colon dilated at 11.0 cm. Dilatation of multiple small bowel loops as well up to 4.1 cm IMPRESSION: 1. Mild cardiomegaly and COPD. Improving interstitial changes. Correlate for residual vascular conges tion. Some patchy bibasilar opacities also remain. 2. Air distention and dilatation throughout the small bowel and colon. Colon is dilated up to 11.0 cm and small bowel loops are dilated up to at least 4.1 cm. Findings would suggest a marked generalized ileus. Correlate as to etiology. [facility], , 03/15/2025 10:28 AM
--- NOTE | 2025-03-15 10:49 | FL ---
EXAMINATION TYPE: FL barium swallow DATE OF EXAM: 03/15/2025 10:27 AM COMPARISON: . Chest radiograph from 03/11/2025. CLINICAL INDICATION:Male, 49 years old with history of aspiration?; PH, TECHNIQUE: The procedure was explained and patient history elicited. All patient questions were ans wered prior to start of procedure. Multiple spot fluoroscopic images of the esophagus were obtained a fter the oral ingestion of liquid barium as the contrast agent. DAP: 1960.41 [id number] FINDINGS: The esophagus demonstrates tertiary contractions with delayed imaging of the esophagus. Retained urin e was throughout the esophagus even with subsequent swallows.. Tertiary contractions are seen with de layed emptying of the esophageal contents. The esophageal mucosa is smooth without evidence of focal stricture, ulceration, or abnormal outpouching. There was gastroesophageal reflux disease was identif ied . IMPRESSION: Patient was only able to lay supine. Severe esophageal dysmotility, gastroesophageal reflux with retained contrast throughout the esophagu s. Aspiration was definitively visualized but given these other findings aspiration would be consider ed likely. [facility], , 03/15/2025 10:46 AM
[2025-03-15 11:47] LABS: Glucose,Whole Blood 163 mg/dL (70-110)
--- NOTE | 2025-03-15 16:40 | P.PN ---
Subjective Progress Note Date: 03/15/25 Patient is a 49-year-old male with past medical history significant for Down syndrome, congestive heart failure, obstructive sleep apnea unable to tolerate CPAP, hypertension, hyperlipidemia, gastroesophageal reflux disease and previous episodes of aspiration. Patient was at his ECF, [facility], found in some respiratory distress. SpO2 was reading low in the 70s. Placed back on supplemental oxygen. I am told he chronically wears 3 L/min nasal cannula at bedtime. Did receive a dose of 40 mg IV Lasix at outside facility. Sent in the emergency department late last night on a nonrebreather. Did not tolerate noninvasive CPAP/BiPAP in the ER. He is currently on Airvo with settings 50 L and 90%. SpO2 recorded around 97%. Workup including a chest x-ray showing cardiomegaly, pulmonary vascular congestion, and probable bilateral pleural effusions. He did receive a additional dose of IV Lasix 20 mg. He was also found to be severely hyperkalemic, with a potassium of 7.4 treated with one half amp D50 W, 10 units regular insulin, 1 amp sodium bicarbonate, concentrated albuterol, and 10 g of Lokelma. VBG: pCO2 of 63, pH of 7.33. Remaining labs including a CBC: WBC count 7.5, hemoglobin 14.3, platelets 243. CMP: Sodium 134, potassium 7.4, chloride 94, serum bicarb 34, BUN 60, creatinine 1.85, glucose 229. LFTs unremarkable. Troponin less than 0.012. NT proBNP only 576. EKG, non-bradycardic, poor quality and will have to be repeated. Patient currently being evaluated in the trauma bay 1. He is awake and alert, unable to provide any further information. Apprehensive of care. Denies any pain. No recorded fevers. No coughing. Tachypneic. On Airvo with above-mentioned sett ings. He does have a chronic indwelling urinary catheter, and there is ample urine in the bag. Current vital signs: Temperature 98.1 F, heart rate 78 bpm, blood pressure 118/54 mmHg, SpO2 recorded at 97% on Airvo. Patient was seen today on 02/26/2025, patient remains in the ICU, remains on Airvo requiring FiO2 of 80% and flow of 60 L/min. His overall pulmonary status is marginal patient looks comfortable, not in any distress. Denies any shortness of breath, remains on diuretics and seems to be clinically improving. Chest x- ray today showed improved pulmonary vascular congestion and scattered infiltrates persist. CBC is relatively normal potassium is back to 5.0 renal profile significantly improved with BUN of 44 creatinine 1.25 Patient was seen today on 02/27/2025, remains in the ICU, on Airvo 90% FiO2 6 0 L flow, about the same, does not seem to be in any distress remains on Lasix 40 mg twice daily chest x-ray is steadily showing improvement in his pulmonary edema. WBC count is 9.3 hemoglobin 14.1 electrolytes are normal bicarb is 38 BUN is 38 creatinine 0.96 Seen today on 02/28/2025, remains in the ICU, remains on Airvo 85% and 60 L flow, patient seems to be doing well, his O2 saturation is up and down in the mid 80s up to the mid 90s, patient is clinically improving, his chest x-ray showed improvement in his pulmonary edema continues to have some bibasilar atelectasis. Patient remains on bronchodilators remains on diuretics, and the plan is to continue titrating his FiO2 down to the point that we could get him transferred out of the ICU to medical floor. WBC count today is 9.2 hemoglobin 13.9 electrolytes are normal bicarb is 39 BUN is 33 creatinine 0.96. The patient is seen today March 01, 2025 in follow-up in the intensive care unit. He is currently sitting up in bed. Awake and alert in no acute distress. He is still requiring Airvo high flow oxygen at 60 L and 80% FiO2. Chest x-ray continues to show mild cardiomegaly, possible underlying COPD, ongoing patchy mid and lower lung opacities without significant change. White count 8.2. Hemoglobin 13.0. Platelets 230. Sodium 132. Potassium 3.5. Bicarb 39. BUN 30. Creatinine 1.03. Glucose 180. He remains on. Remains on Lasix 40 mg twice daily. Heparin for DVT prophylaxis. Currently in a +135 mL balance. The patient is seen today March 02, 2025 in follow-up in the intensive care unit. He is awake and alert in no acute distress. Sitting up in bed. He is on Airvo high flow oxygen at 60 L and 70% FiO2. Gradually being weaned down. No worsening shortness of breath, cough or congestion. He has been afebrile. Hemodynamically stable. Chest x-rays shows evidence of COPD with improvement in the congestive heart failure with less interstitial pulmonary edema. White count 8.3. Hemoglobin 13.1. Platelets 237. Sodium 133. Potassium 4.1. Bicarb 43. BUN 25. Creatinine 1.0. Glucose 144. He remains on oral Lasix and Diamox. Heparin for DVT prophylaxis. Continued on bronchodilators. The patient is seen today March 03, 2025 in follow-up in the intensive care unit. He is sitting up in bed. Awake and alert in no acute distress. He is afebrile. Hemodynamically stable. Still requiring Airvo high flow oxygen at 60 L and 55% FiO2. He remains on DuoNeb inhalations. Heparin for DVT prophylaxis. Remains on oral diuretics. White count 7.6. Hemoglobin 12.8. Platelets 234. Sodium 134. Potassium 3.8. Bicarb 40. BUN 18. Creatinine 1.19. Glucose 109. Troponin negative. proBNP 137. Chest x-ray continues to show bibasilar opacities. The patient is seen today March 04, 2025 in follow-up in the intensive care unit. He is a 3 S. overflow patient. He is awake and alert in no acute distress. Sitting up in bed. Continued on Airvo high flow oxygen at 55 L and 70% FiO2. He had arterial blood gases revealed a PO2 of 77, pCO2 74 and a pH of 7.34. White count 8.9. Hemoglobin 13.0. Platelets 252. Sodium 137. Potassium 4.0. Bicarb 38. BUN 26. Creatinine 1.22. Glucose 113. He remains on DuoNeb inhalations. Continued on Lasix and Diamox. Heparin for DVT prophylaxis. The patient is seen today March 05, 2025 in follow-up in the intensive care unit. He remains a 3 S. overflow patient. He is awake and alert in no acute distress. Sitting up in bed. Remains on Airvo high flow oxygen at 55 L and 60% FiO2. No IV fluids. White count 9.8. Hemoglobin 12.0. Platelets 226. Sodium 136. Potassium 3.8. Bicarb 37. BUN 28. Creatinine 1.14. Glucose 166. Procalcitonin was negative at 0.20. He remains on DuoNeb inhalations. Continued on oral diuretics. Heparin for DVT prophylaxis. The patient is seen today March 06, 2025 in follow-up on the regular medical floor. He was transferred out of the intensive care unit yesterday. He is currently sitting up in bed having breakfast. He is feeding himself. He is encouraged to eat slowly and chew his food well. He remains on Airvo high flow oxygen at 40 L and 60% FiO2. He is continued on DuoNeb inhalations. Heparin for DVT prophylaxis. Remains on oral diuretics. He is making good urine. No new labs today. The patient is seen today March 15, 2025 in follow-up on the regular medical floor. He is currently sitting up in bed. Awake and alert in no acute distress. He is still requiring 8 L high flow nasal cannula. He has been afebrile. Hemodynamically stable. Chest x-ray was still showing cardiomegaly and pulmonary vascular congestion with small left pleural effusion. Basilar atelectasis. Today has been having issues with nausea. Abdominal x-ray revealed air distention and dilatation throughout the small bowel and colon. Colon is dilated up to 11.0 cm and small bowel loops are dilated up to at least 4.1 cm. Findings would suggest a marked generalized ileus. Barium swallow revealed severe esophageal dysmotility, gastroesophageal reflux with retained contrast throughout the esophagus. Aspiration was definitely visualized. Blood culture revealed no growth. Glucose 163. He remains on DuoNeb inhalations, Pulmicort and Perforomist inhalations, IV Solu-Medrol. He remains on antibiotics in the form of Zosyn. Heparin for DVT prophylaxis. He remains on Diamox. Objective - Vital Signs Vital signs: Vital Signs Temp 98.8 F 03/15/25 15:13 Pulse 58 L 03/15/25 15:13 Resp 18 03/15/25 15:13 BP 129/65 03/15/25 15:13 Pulse Ox 95 03/15/25 15:13 FiO2 70 03/14/25 09:42 Intake & Output 03/14/25 03/15/25 03/15/25 18:59 06:59 18:59 Intake Total 20 Output Total 1075 775 Balance -1055 -683 Weight 112 kg Intake: IV 20 Invasive Line 7 20 Output: Urine 1075 775 Other: Voiding Method Indwelling Catheter Indwelling Catheter Indwelling Catheter # Bowel Movements 1 1 - Exam GENERAL EXAM: Alert, nauseated, weak 49-year-old male, sitting up in bed. On 8 L high flow nasal cannula, fairly comfortable in no acute distress. HEAD: Normocephalic. Clinical features of Down's syndrome. EYES: Normal reaction of pupils, equal size. NOSE: Clear with pink turbinates. THROAT: No erythema or exudates. NECK: No masses, no JVD. CHEST: No chest wall deformity. LUNGS: Equal air entry with few scattered rhonchi, crackles in the bilateral bases. CVS: S1 and S2 normal with no audible murmur, regular rhythm. ABDOMEN: No hepatosplenomegaly, normal bowel sounds, no guarding or rigidity. SPINE: No scoliosis or deformity SKIN: No rashes. Diffuse seborrheic keratosis. CENTRAL NERVOUS SYSTEM: No focal deficits, tone is normal in all 4 extremities. EXTREMITIES: There is no peripheral edema. No clubbing, no cyanosis. Peripheral pulses are intact. - Labs CBC & Chem 7: 03/14/25 07:14 03/14/25 07:14 Labs: Abnormal Lab Results - Last 24 Hours (Table) 03/14/25 03/15/25 03/15/25 Range/Units 20:01 06:12 11:37 POC Glucose (mg/dL) 242 H 197 H 163 H (70-110) mg/dL Microbiology - Last 24 Hours (Table) 03/12/25 16:10 Blood Culture - Preliminary Blood Assessment and Plan Assessment: Acute on chronic hypoxemic and hypercapnic respiratory failure, currently on Airvo, suspect secondary to an exacerbation of diastolic congestive heart valarie lure and underlying obesity hypoventilation syndrome. Now with suspected aspiration pneumonia. Currently on Zosyn Abdominal pain and nausea, abdominal x-ray reveals possible ileus History of heart failure with preserved ejection fraction Severe hyperkalemia, resolved Acute kidney injury, recovered, creatinine 1.14 History obstructive sleep apnea, unable to tolerate CPAP Morbid obesity, with a BMI of 42.9 kg/m History of hyperlipidemia Hypertension History of trisomy 21 Plan: The patient was seen and evaluated Imaging, labs and medications reviewed Suspect ongoing aspiration Currently on 8 L high flow nasal cannula Continue to titrate down the FiO2 as tolerated Speech therapy consult for recommendations Aspiration precautions Remains on Zosyn Continue DuoNeb inhalations Continue Pulmicort and performance inhalations Continue Solu-Medrol Remains on Diamox Heparin for DVT prophylaxis Prognosis is guarded We will continue to follow I have personally seen and examined the patient, performed the documentation and the assessment and plan as written. Number of minutes spent on the visit: 10 Dictation was produced using [employer] dictation software. Please excuse any grammatical, word or spelling errors.
[2025-03-15 17:03] LABS: Glucose,Whole Blood 166 mg/dL (70-110)
--- NOTE | 2025-03-15 17:08 | P.PN ---
Subjective Progress Note Date: 03/15/25 Principal diagnosis: Reason for follow-up is possible pneumonia Patient is a 49-year-old male with a past medical history of GERD for hyperlipidemia reflux heart failure asthma and memory impairment with initial presentation the hospital for shortness of breath subsequently did have a low- grade fever on 03/10/2025 with a chest x-ray showing bibasilar acute infiltrate prompting this consultation On today's evaluation that is 03/15/2025, the patient continues to be afebrile, the patient is on 8 L high flow nasal cannula oxygen and breathing comfortably, the Pt does not seem to be any distress nonverbal no vomiting diarrhea no changes reported. No new lab has been obtained today blood culture currently pending Objective - Vital Signs Vital signs: Vital Signs Temp 98.8 F 03/15/25 15:13 Pulse 64 03/15/25 16:53 Resp 18 03/15/25 15:13 BP 129/65 03/15/25 15:13 Pulse Ox 95 03/15/25 15:13 FiO2 70 03/14/25 09:42 Intake & Output 03/14/25 03/15/25 03/15/25 18:59 06:59 18:59 Intake Total 20 Output Total 1075 775 Balance -1055 -775 Weight 112 kg Intake: IV 20 Invasive Line 7 20 Output: Urine 1075 775 Other: Voiding Method Indwelling Catheter Indwelling Catheter Indwelling Catheter # Bowel Movements 1 1 - Exam GENERAL DESCRIPTION: Middle-age male lying in bed in no distress RESPIRATORY SYSTEM: Unlabored breathing , decreased breath sounds at bases HEART: S1 S2 regular rate and rhythm , ABDOMEN: Soft , no tenderness - Labs CBC & Chem 7: 03/14/25 07:14 03/14/25 07:14 Labs: Abnormal Lab Results - Last 24 Hours (Table) 03/14/25 03/15/25 03/15/25 Range/Units 20:01 06:12 11:37 POC Glucose (mg/dL) 242 H 197 H 163 H (70-110) mg/dL 03/15/25 Range/Units 16:49 POC Glucose (mg/dL) 166 H (70-110) mg/dL Microbiology - Last 24 Hours (Table) 03/12/25 16:10 Blood Culture - Preliminary Blood Assessment and Plan (1) Aspiration pneumonia Current Visit: Yes Status: Acute Code(s): J69.0 - PNEUMONITIS DUE TO INHALATION OF FOOD AND VOMIT SNOMED Code(s): 043579078 Plan: 1patient presented to the hospital initially on 02/24/2025 for evaluation of increasing shortness of breath and the patient has been under care of pulmonary and cardiology services as well as admitting team patient did have a low-grade fever on 03/10/2025 and also had worsening of his white count, with a chest x-ray concerning for acute bibasilar infiltrate question of possible aspiration pneumonia/gram-negative 2-patient did have resolution of his fever white count is trending down as of yesterday no CBC was done today for now continue with Zosyn and monitor clinical course closely Dictation was produced using [employer] dictation software. please excuse any grammatical, word or spelling errors. Time with Patient: Less than 30
--- NOTE | 2025-03-15 17:22 | PN ---
PROGRESS NOTE DATE OF SERVICE: 03/15/2025 SUBJECTIVE: This is a 49-year-old gentleman admitted with significant CHF as well as bilateral lung lesions, possibly has continued aspiration. Barium swallow showed multiple abnormalities. The patient also had ileus in the abdomen. Also, the patient was on AIRVO for quite some time. The patient is not making any improvement at all. At this time, I would have discussion with the family and guardians regarding the further course of action, because of the overall prognosis is extremely poor given the multiple complex medical issues and the Down syndrome that the patient is having. PAST MEDICAL HISTORY: Reviewed. REVIEW OF SYSTEMS: Could not be taken. CURRENT MEDICATIONS: Reviewed. PHYSICAL EXAMINATION: VITAL SIGNS: Pulse is 58, blood pressure 116/64, and respirations 18. CHEST: Few scattered rhonchi. ABDOMEN: Obese. SKIN: No ulcer or rash. LABORATORY DATA: Reviewed. ASSESSMENT: 1. Acute hypoxic respiratory failure, hypercarbic respiratory failure secondary to pulmonary edema as well as obesity-hypoventilation syndrome as well as CO2 retention. 2. Possible aspiration and esophageal dysmotility. 3. Possibly ileus. 4. On AIRVO status post acute asthma exacerbation and bilateral pneumonia possibly aspiration. 5. Acute renal failure. 6. Hypokalemia, severe. 7. History of congestive heart failure. 8. Hypertension. 9. Hyperlipidemia. 10.History of Down syndrome. 11.Extensive seborrheic dermatitis. 12.FULL CODE. RECOMMENDATION: This 49-year-old gentleman presented with multiple complex medical issues. The patient is not making any improvement at all. The patient has multiple complex medical issues at this time. At this time, the overall prognosis extremely guarded. I will discuss the case with the legal guardian regarding the course of further action including the code status and possible palliative care versus hospice care also. Once again the prognosis extremely guarded, because of multiple complex medical issues. The patient currently has significant aspiration issues, abnormal barium swallow as well as ileus issues as well. Further recommendations to follow. MMODL / IJN: [id number] /
[2025-03-15 20:09] LABS: Glucose,Whole Blood 203 mg/dL (70-110)
[2025-03-16 04:38] VITALS: RESP 16
[2025-03-16 06:13] LABS: Glucose,Whole Blood 167 mg/dL (70-110)
[2025-03-16 11:34] VITALS: BMI 42.2
[2025-03-16 11:40] LABS: Glucose,Whole Blood 168 mg/dL (70-110)
[2025-03-16 14:29] VITALS: BP 122/53; PULSE 64; TEMP 99.1
--- NOTE | 2025-03-16 14:46 | P.DS ---
Providers Date of admission: 02/24/25 23:30 Expected date of discharge: 03/16/25 Attending physician: Salazar Matias Consults: 02/24/25 23:26 Consult Physician Stat Consulting Provider: Rudy Valladares Consult Reason/Comments: acute hypoxic resp failure, chf, hyperkalemia Do you want consulting provider notified?: Already Contacted Consult Physician Urgent Consulting Provider: [facility] Consult Reason/Comments: acute chf exacerbation Do you want consulting provider notified?: Yes Consult Physician Urgent Consulting Provider: Diana Rausch Consult Reason/Comments: hyperkalemia Do you want consulting provider notified?: Yes 03/11/25 15:29 Consult Physician Routine Consulting Provider: Benson Reed Consult Reason/Comments: aspiration pneumonia Do you want consulting provider notified?: Yes 03/16/25 03:06 Consult Physician Urgent Consulting Provider: Johnathon Lemus Consult Reason/Comments: ileus Do you want consulting provider notified?: Yes Primary care physician: Katelyn Quintanilla Hospital Course: Final diagnosis - Acute hypoxic and possibly probably hypercapnic respiratory failure secondary to some pulmonary edema as well as obesity hypoventilation syndrome and chronic CO2 retention. - Acute renal failure: Probably prerenal azotemia from heart failure -Aspiration and esophageal dysmotility -Abdominal pain with distention with concerns of ileus versus small bowel obstruction - Hyperkalemia secondary to acute renal failure Aldactone and lisinopril all of which are being held - Congestive heart failure preserved ejection fraction, chronic diastolic function with acute exacerbation - Hyperlipidemia -History of Down syndrome - Obesity and obesity hypoventilation syndrome, sleep apnea on CPAP machine at home - Hypertension - Extensive seborrheic dermatitis DVT prophylaxis: Subcutaneous heparin GI prophylaxis No code Discharge disposition Patient is being discharged in a stable condition with guarded prognosis to [facility]. Total time taken is greater than 35 minutes. Hospital course This is a 49-year-old male who was recently admitted with multiple complications including significant CHF exacerbation as well as bilateral lung lesions possible continued ongoing aspiration. Patient did undergo barium swallow that showed multiple abnormalities with significant dysmotility and also noted to have an abdominal ileus. Patient with respiratory failure requiring high flow oxygen has transition to nasal cannula although continues with shortness of breath. Patient clinically declining and given significant comorbidities discussion was had and agreeable with hospice. [facility] has met with family and has accepted the patient. Patient with extremely poor and guarded prognosis will be discharged to [facility] today. Please refer to other consultation notes for further HPI. Recommend pleasure foods as tolerated and continued bowel regimen Physical exam: Gen: This is a 49-year-old male who is awake, alert and oriented x 1-2, baseline, well-developed, appears elderly, Down syndrome, morbidly obese HEENT: Head is atraumatic, normocephalic. Pupils equal, round. Sclerae is anicteric. NECK: Supple. No JVD. No lymphadenopathy. No thyromegaly. LUNGS: Diminished breath sounds bilaterally with scattered crackles and coarse rhonchi noted. No intercostal retractions. HEART: Regular rate and rhythm. No murmur. ABDOMEN: Soft. Obese, distended bowel sounds are present. No masses. tenderness. EXTREMITIES: No pedal edema. No calf tenderness. Bilateral generalized edema noted NEUROLOGICAL: Patient is awake, alert and oriented x 1-2. Diffusely weak Please refer to medication reconciliation sheet for a list of medications. The impression and plan of care has been dictated by Marisol Wilder, Nurse Practitioner as directed. Dr. Florencio MD I have performed a history and examination and MDM of this patient, discussed the same with the dictator, and agree with the dictator's assessment and plan as written ,documented as a scribe. Based on total visit time, I have performed more than 50% of the visit. Patient Condition at Discharge: Poor Plan - Discharge Summary Discharge Rx Participant: No New Discharge Prescriptions: New Lactulose [Cephulac] 20 gm PO BID ml Ipratropium-Albuterol Nebulize [Duoneb 0.5 mg-3 mg/3 ml Soln] 3 ml INHALATION RT-QID each polyethylene glycoL 3350 [Miralax] 17 gm PO DAILY packet Ketoconazole 2% Shampoo [Nizoral] 1 applic TOPICAL Q3D ml Pantoprazole [Protonix] 40 mg PO AC-BRKFST tab Budesonide [Pulmicort] 1 mg INHALATION RT-BID ml Docusate [Colace] 100 mg PO BID cap acetaZOLAMIDE [Diamox] 500 mg PO Q12HR tab bisacodyL [Dulcolax] 10 mg RECTAL HS suppositor Heparin Sodium,Porcine (1 ml) [Heparin Sodium] 5,000 unit SQ Q8HR each INSULIN LISPRO (HumaLOG) [HumaLOG] 0 unit SQ ACHS each Potassium Chloride ER [K-Dur 20] 20 meq PO BID tab Insulin Glargine (Lantus) [Lantus Vial] 20 unit SQ DAILY@0700 each Clotrimazole Cream [Lotrimin Cream] 1 applic TOPICAL BID each Mag Hydrox/Al Hydrox/Simeth [Maalox] 30 ml PO Q4HR PRN ml PRN Reason: Gi Upset Nystatin 100,000 Unit/gm Oint [Mycostatin Oint] 1 applic TOPICAL BID each Formoterol Fumarate [Perforomist] 20 mcg INHALATION RT-BID ml predniSONE See Taper PO DIRECTED #30 tab Calcium Carbonate [Tums] 500 mg PO QID PRN tab PRN Reason: Heartburn Acetaminophen Tab [Tylenol] 650 mg PO Q6HR PRN tab PRN Reason: Fever and/ or Mild Pain Continue Atorvastatin [Lipitor] 40 mg PO DAILY Miconzole Powder 2% 1 applic TOPICAL BID Ammonium Lactate Cream [Lac-Hydrin 12% Cream] 1 applic TOPICAL BID Tamsulosin HCl [Flomax] 0.4 mg PO DAILY Aspirin 81 mg PO DAILY #30 Esomeprazole Magnesium [NexIUM] 20 mg PO BID Thiamine [Vitamin B-1] 100 mg PO DAILY Furosemide [Lasix] 40 mg PO DAILY Ascorbic Acid [Vitamin C] 500 mg PO DAILY Discontinued Spironolactone [Aldactone] 25 mg PO DAILY lisinopriL [Zestril] 2.5 mg PO DAILY #30 tab Fluoride (Sodium) [Prevident] 1 applic TOPICAL HS Amino Acids/Protein Hydrolys [Pro-Stat Awc Liquid] 1 applic TOPICAL BID Discharge Medication List Atorvastatin [Lipitor] 40 mg PO DAILY 01/11/16 [History] Aspirin 81 mg PO DAILY #30 01/03/22 [Rx] Ammonium Lactate Cream [Lac-Hydrin 12% Cream] 1 applic TOPICAL BID 02/25/25 [History] Ascorbic Acid [Vitamin C] 500 mg PO DAILY 02/25/25 [History] Esomeprazole Magnesium [NexIUM] 20 mg PO BID 02/25/25 [History] Furosemide [Lasix] 40 mg PO DAILY 02/25/25 [History] Miconzole Powder 2% 1 applic TOPICAL BID 02/25/25 [History] Tamsulosin HCl [Flomax] 0.4 mg PO DAILY 02/25/25 [History] Thiamine [Vitamin B-1] 100 mg PO DAILY 02/25/25 [History] Acetaminophen Tab [Tylenol] 650 mg PO Q6HR PRN tab 03/16/25 [Rx] Budesonide [Pulmicort] 1 mg INHALATION RT-BID ml 03/16/25 [Rx] Calcium Carbonate [Tums] 500 mg PO QID PRN tab 03/16/25 [Rx] Clotrimazole Cream [Lotrimin Cream] 1 applic TOPICAL BID each 03/16/25 [Rx] Docusate [Colace] 100 mg PO BID cap 03/16/25 [Rx] Formoterol Fumarate [Perforomist] 20 mcg INHALATION RT-BID ml 03/16/25 [Rx] Heparin Sodium,Porcine (1 ml) [Heparin Sodium] 5,000 unit SQ Q8HR each 03/16/25 [Rx] INSULIN LISPRO (HumaLOG) [HumaLOG] 0 unit SQ ACHS each 03/16/25 [Rx] Insulin Glargine (Lantus) [Lantus Vial] 20 unit SQ DAILY@0700 each 03/16/25 [Rx] Ipratropium-Albuterol Nebulize [Duoneb 0.5 mg-3 mg/3 ml Soln] 3 ml INHALATION RT-QID each 03/16/25 [Rx] Ketoconazole 2% Shampoo [Nizoral] 1 applic TOPICAL Q3D ml 03/16/25 [Rx] Lactulose [Cephulac] 20 gm PO BID ml 03/16/25 [Rx] Mag Hydrox/Al Hydrox/Simeth [Maalox] 30 ml PO Q4HR PRN ml 03/16/25 [Rx] Nystatin 100,000 Unit/gm Oint [Mycostatin Oint] 1 applic TOPICAL BID each 03/16/25 [Rx] Pantoprazole [Protonix] 40 mg PO AC-BRKFST tab 03/16/25 [Rx] Potassium Chloride ER [K-Dur 20] 20 meq PO BID tab 03/16/25 [Rx] acetaZOLAMIDE [Diamox] 500 mg PO Q12HR tab 03/16/25 [Rx] bisacodyL [Dulcolax] 10 mg RECTAL HS suppositor 03/16/25 [Rx] polyethylene glycoL 3350 [Miralax] 17 gm PO DAILY packet 03/16/25 [Rx] predniSONE See Taper PO DIRECTED #30 tab 03/16/25 [Rx] Follow up Appointment(s)/Referral(s): Katelyn Quintanilla MD [Primary Care Provider] - 1-2 days Activity/Diet/Wound Care/Special Instructions: Patient is going to [facility] Activity as tolerated Continue bowel regimen Continue pleasure feeds as tolerated Discharge Disposition: OTHER INSTITUTION NOT DEFINED
--- NOTE | 2025-03-16 15:01 | P.PN ---
Subjective Progress Note Date: 03/16/25 Principal diagnosis: Reason for follow-up is possible pneumonia Patient is a 49-year-old male with a past medical history of GERD for hyperlipidemia reflux heart failure asthma and memory impairment with initial presentation the hospital for shortness of breath subsequently did have a low- grade fever on 03/10/2025 with a chest x-ray showing bibasilar acute infiltrate prompting this consultation On today's evaluation that is 03/16/2025, Patient is afebrile patient is currently on 8 L high flow nasal cannula oxygen and mention breathing comfortably denies any chest pain or cough has been complaining about epigastric discomfort nausea but no vomiting and no diarrhea. No new lab has been obtained today blood culture has been negative so far Objective - Vital Signs Vital signs: Vital Signs Temp 99.1 F 03/16/25 11:10 Pulse 64 03/16/25 11:10 Resp 16 03/16/25 11:10 BP 122/53 03/16/25 11:10 Pulse Ox 94 L 03/16/25 11:10 FiO2 70 03/14/25 09:42 Intake & Output 03/15/25 03/16/25 03/16/25 18:59 06:59 18:59 Output Total 775 Balance -775 Weight 111.5 kg 111.5 kg Output: Urine 775 Other: Voiding Method Indwelling Catheter Indwelling Catheter Indwelling Catheter # Bowel Movements 1 - Exam GENERAL DESCRIPTION: Middle-age male lying in bed in no distress RESPIRATORY SYSTEM: Unlabored breathing , decreased breath sounds at bases HEART: S1 S2 regular rate and rhythm , ABDOMEN: Soft , no tenderness - Labs CBC & Chem 7: 03/14/25 07:14 03/14/25 07:14 Labs: Abnormal Lab Results - Last 24 Hours (Table) 03/15/25 03/15/25 03/16/25 Range/Units 16:49 20:07 06:12 POC Glucose (mg/dL) 166 H 203 H 167 H (70-110) mg/dL 03/16/25 Range/Units 11:29 POC Glucose (mg/dL) 168 H (70-110) mg/dL Microbiology - Last 24 Hours (Table) 03/12/25 16:10 Blood Culture - Preliminary Blood Assessment and Plan (1) Aspiration pneumonia Current Visit: Yes Status: Acute Code(s): J69.0 - PNEUMONITIS DUE TO INHALATION OF FOOD AND VOMIT SNOMED Code(s): 683331887 Plan: 1patient presented to the hospital initially on 02/24/2025 for evaluation of increasing shortness of breath and the patient has been under care of pulmonary and cardiology services as well as admitting team patient did have a low-grade fever on 03/10/2025 and also had worsening of his white count, with a chest x-ray concerning for acute bibasilar infiltrate question of possible aspiration pneumonia/gram-negative 2-patient did have resolution of his fever white count is trending down on the last check patient has received adequate Zosyn possible plan for hospice which may be appropriate Family at the bedside question answered Dictation was produced using [employer] dictation software. please excuse any grammatical, word or spelling errors. Time with Patient: Less than 30
--- NOTE | 2025-03-16 15:13 | P.PN ---
Subjective Progress Note Date: 03/16/25 Principal diagnosis: Acute on chronic hypoxic and hypercapnic respiratory failure, mostly secondary to acute on chronic diastolic congestive heart failure, morbid obesity, obesity hypoventilation syndrome, and history of trisomy 21 The patient is seen today March 04, 2025 in follow-up in the intensive care unit. He is a 3 S. overflow patient. He is awake and alert in no acute distress. Sitting up in bed. Continued on Airvo high flow oxygen at 55 L and 70% FiO2. He had arterial blood gases revealed a PO2 of 77, pCO2 74 and a pH of 7.34. White count 8.9. Hemoglobin 13.0. Platelets 252. Sodium 137. Potassium 4.0. Bicarb 38. BUN 26. Creatinine 1.22. Glucose 113. He remains on DuoNeb inhalations. Continued on Lasix and Diamox. Heparin for DVT prophylaxis. The patient is seen today March 05, 2025 in follow-up in the intensive care unit. He remains a 3 S. overflow patient. He is awake and alert in no acute distress. Sitting up in bed. Remains on Airvo high flow oxygen at 55 L and 60% FiO2. No IV fluids. White count 9.8. Hemoglobin 12.0. Platelets 226. Sodium 136. Potassium 3.8. Bicarb 37. BUN 28. Creatinine 1.14. Glucose 166. Procalcitonin was negative at 0.20. He remains on DuoNeb inhalations. Continued on oral diuretics. Heparin for DVT prophylaxis. The patient is seen today March 06, 2025 in follow-up on the regular medical floor. He was transferred out of the intensive care unit yesterday. He is currently sitting up in bed having breakfast. He is feeding himself. He is encouraged to eat slowly and chew his food well. He remains on Airvo high flow oxygen at 40 L and 60% FiO2. He is continued on DuoNeb inhalations. Heparin for DVT prophylaxis. Remains on oral diuretics. He is making good urine. No new labs today. The patient is seen today March 15, 2025 in follow-up on the regular medical floor. He is currently sitting up in bed. Awake and alert in no acute distress. He is still requiring 8 L high flow nasal cannula. He has been afebrile. Hemodynamically stable. Chest x-ray was still showing cardiomegaly and pulmonary vascular congestion with small left pleural effusion. Basilar atelectasis. Today has been having issues with nausea. Abdominal x-ray revealed air distention and dilatation throughout the small bowel and colon. Colon is dilated up to 11.0 cm and small bowel loops are dilated up to at least 4.1 cm. Findings would suggest a marked generalized ileus. Barium swallow revealed severe esophageal dysmotility, gastroesophageal reflux with retained contrast throughout the esophagus. Aspiration was definitely visualized. Blood culture revealed no growth. Glucose 163. He remains on DuoNeb inhalations, Pulmicort and Perforomist inhalations, IV Solu-Medrol. He remains on antibiot ics in the form of Zosyn. Heparin for DVT prophylaxis. He remains on Diamox. Patient was seen today on 03/19/2025, basically about the same, major concern is the fact that the patient is having intermittent episodes of aspiration family declined PEG tube placement, apparently family is now interested in going for hospice. I believe does not inappropriate, patient's condition is getting worse, and the patient has been in the hospital now for almost 3 weeks. I believe hospice is appropriate if the family wishes to do so. Objective - Vital Signs Vital signs: Vital Signs Temp 99.1 F 03/16/25 11:10 Pulse 64 03/16/25 11:10 Resp 16 03/16/25 11:10 BP 122/53 03/16/25 11:10 Pulse Ox 94 L 03/16/25 11:10 FiO2 70 03/14/25 09:42 Intake & Output 03/15/25 03/16/25 03/16/25 18:59 06:59 18:59 Output Total 775 Balance -775 Weight 111.5 kg 111.5 kg Output: Urine 775 Other: Voiding Method Indwelling Catheter Indwelling Catheter Indwelling Catheter # Bowel Movements 1 - Exam GENERAL EXAM: Alert, 49-year-old obese male, clinical features of Down syndrome on nasal cannula, not in distress HEAD: Atraumatic, normocephalic, patient does have features of Down syndrome EYES: Normal reaction of pupils, equal size. NOSE: Clear with pink turbinates. THROAT: No erythema or exudates. NECK: No masses, no JVD. CHEST: No chest wall deformity. LUNGS: Diminished breath sounds at the bases no crackles rhonchi or wheezes CVS: S1 and S2 normal with no audible murmur, regular rhythm. No extra heart sounds ABDOMEN: No hepatosplenomegaly, active bowel sounds, no guarding or rigidity. SKIN: No rashes. Diffuse seborrheic keratosis CENTRAL NERVOUS SYSTEM: No focal deficits, tone is normal in all 4 extremities. EXTREMITIES: No clubbing, no edema, no cyanosis - Labs CBC & Chem 7: 03/14/25 07:14 03/14/25 07:14 Labs: Abnormal Lab Results - Last 24 Hours (Table) 03/15/25 03/15/25 03/16/25 Range/Units 16:49 20:07 06:12 POC Glucose (mg/dL) 166 H 203 H 167 H (70-110) mg/dL 03/16/25 Range/Units 11:29 POC Glucose (mg/dL) 168 H (70-110) mg/dL Microbiology - Last 24 Hours (Table) 03/12/25 16:10 Blood Culture - Preliminary Blood Assessment and Plan Assessment: Impression: Acute on chronic hypoxemic and hypercapnic respiratory failure, currently on Airvo, suspect secondary to an exacerbation of diastolic congestive heart failure and underlying obesity hypoventilation syndrome. Now with suspected aspiration pneumonia. Currently on Zosyn Abdominal pain and nausea, abdominal x-ray reveals possible ileus History of heart failure with preserved ejection fraction Severe hyperkalemia, resolved Acute kidney injury, recovered, creatinine 1.14 History obstructive sleep apnea, unable to tolerate CPAP Morbid obesity, with a BMI of 42.9 kg/m History of hyperlipidemia Hypertension History of trisomy 21 Recommendation: Agree with present supportive care measures Agree with hospice evaluation if the family would like to do so We will see the patient on as needed basis. Time with Patient: Less than 30
[2025-03-16 17:09] LABS: Glucose,Whole Blood 179 mg/dL (70-110)
== END 2025-03-16 17:39 | disposition hospice, inpatient (51) | DRG 291 ==
LOC: EC 20:01 → 2SICU 23:30 → 3SCARD 03-05 21:09
PROVIDERS: ADMIT Hospitalist; ATTEND Hospitalist
PROC: 05HD33Z Insertion of Infusion Device into Right Cephalic Vein, Percutaneous Approach (ICD-10-PCS; principal; 2025-03-08 16:15)
PROC: 05HD33Z Insertion of Infusion Device into Right Cephalic Vein, Percutaneous Approach (ICD-10-PCS; 2025-03-15 08:00)
DX: I11.0 Hypertensive heart disease with heart failure (principal); I50.33 Acute on chronic diastolic (congestive) heart failure; J96.21 Acute and chronic respiratory failure with hypoxia; J96.22 Acute and chronic respiratory failure with hypercapnia; N17.0 Acute kidney failure with tubular necrosis; J69.0 Pneumonitis due to inhalation of food and vomit; L89.312 Pressure ulcer of right buttock, stage 2; E87.4 Mixed disorder of acid-base balance; J45.901 Unspecified asthma with (acute) exacerbation; E66.2 Morbid (severe) obesity with alveolar hypoventilation; J44.1 Chronic obstructive pulmonary disease with (acute) exacerbation; Z68.41 Body mass index [BMI] 40.0-44.9, adult; K56.7 Ileus, unspecified; J98.11 Atelectasis; L89.322 Pressure ulcer of left buttock, stage 2; Z51.5 Encounter for palliative care; I95.9 Hypotension, unspecified; Z99.81 Dependence on supplemental oxygen; E87.5 Hyperkalemia; E87.6 Hypokalemia; K21.9 Gastro-esophageal reflux disease without esophagitis; Q90.9 Down syndrome, unspecified; E78.5 Hyperlipidemia, unspecified; K22.4 Dyskinesia of esophagus; L21.9 Seborrheic dermatitis, unspecified; F89 Unspecified disorder of psychological development; Z77.22 Contact with and (suspected) exposure to environmental tobacco smoke (acute) (chronic); Z79.82 Long term (current) use of aspirin; Z79.899 Other long term (current) drug therapy; Z74.01 Bed confinement status
CPT/HCPCS: 36410; 36415; 36600; 71045; 71260; 74022; 74220; 76937; 80048; 80051; 80053; 81001; 82803; 82805; 83036; 83605; 83735; 83880; 84132; 84145; 84484; 85025; 85379; 85610; 85730; 86140; 87040; 87636; 93005; 93306; 94640; 94760; 96374; 96375; 99291